=== PATIENT | female | born 1965 | race Caucasian/White ===

== ENCOUNTER 2020-09-22 15:16 | Outpatient (REF) | payer MEDICARE, SELFPAY ==
--- NOTE | 2020-09-22 15:27 | XR_ITS ---
EXAMINATION: XR CHEST CLINICAL INFORMATION: 55-year-old female patient with abnormal weight loss. COMPARISON: CT the chest on 12/16/2018. COPD. Bullous lung disease upper lobes. Chest x-ray on 07/05/2016. TECHNIQUE: PA and lateral erect views of the chest. FINDINGS: Both lungs are hyper aerated consistent with COPD. The cardiovascular, intestinal, and hilar structures are normal. A 0.3 cm calcified granuloma is partially superimposed on the anterior aspect of the left sixth rib. Just superior to this granuloma is another peripheral rectangular density with probable calcification corresponding to a partially calcified pleural plaque on the recent CT exam. Otherwise the lungs are clear. There is no visible pleural effusion. Minor bilateral apical pleural thickening is seen. XR/XR chest 2V IMPRESSION: No acute pulmonary disease. Small calcified granuloma left lung. Partially calcified pleural plaque lateral left chest wall.
[2020-09-22 16:56] LABS: MANUAL DIFF FLAG NO
[2020-09-22 16:59] LABS: Estimated Average Glucose 91 mg/dL; Hemoglobin A1c % 4.8 %
[2020-09-22 17:01] LABS: Basophils Absolute Auto 0.1 X10*3/uL (0.0-0.2); Basophils Percent Auto 0.9 % (0-2); Eosinophils Absolute Auto 0.2 X10*3/uL (0.0-0.4); Eosinophils Percent Auto 2.7 % (0-4); Hematocrit 42.5 % (37-47); Imm Gran Abs Auto 0.02 X10*3/uL (0.00-0.03); Imm Gran Pct Auto 0.3 % (0.0-0.4); Lymphocytes Absolute Auto 2.6 X10*3/uL (1.2-4.9); Lymphocytes Percent Auto 33.8 % (20-40); Mean Corpuscular HGB Conc 32.9 g/dl (31.0-35.0); Mean Corpuscular Hemoglobin 30.6 pg (27.0-33.0); Mean Platelet Volume 10.5 fL (9.4-12.3); Monocytes Absolute Auto 0.4 X10*3/uL (0.1-1.2); Monocytes Percent Auto 5.3 % (2-11); Neutrophils Absolute Auto 4.4 X10*3/uL (2.0-8.3); Platelet Count 369 X10*3/uL (160-400); Red Blood Count 4.57 X10*6/uL (4.20-5.50); Red Cell Distribution Width 12.1 % (11.0-16.0); White Blood Count 7.7 X10*3/uL (4.8-10.8)
[2020-09-22 17:13] LABS: Alanine Aminotransferase 18 U/L (0-31); Albumin Level 5.2 g/dL (3.5-5.0); Alkaline Phosphatase 52 U/L (39-117); Amylase 101 U/L (28-100); Anion Gap 14 (12-20); Aspartate Amino Transferase 20 U/L (5-31); Bilirubin Direct 0.2 mg/dL (0.0-0.5); Bilirubin Total 0.3 mg/dL (0.0-1.0); Blood Urea Nitrogen 9 mg/dL (9-16); C Reactive Protein 0.02 mg/dL (< or = 0.50); Calcium 10.1 mg/dL (8.4-10.2); Carbon Dioxide 30 mmol/L (22-29); Chloride 103 mmol/L (96-108); Estimated Glomerular Filt Rate > 60; Glucose Random 95 mg/dL (60-115); Lipase 63 U/L (8-78); Potassium 4.2 mmol/l (3.3-5.1); Sodium 143 mmol/L (135-145); Total Protein 8.5 g/dL (6.5-8.0)
[2020-09-22 17:35] LABS: TSH reflex Free T4 2.05 mIU/mL (0.32-4.0)
[2020-09-22 17:43] LABS: Erythrocyte Sedimentation Rate 6 MM/HR (0-20)
[2020-09-27 04:27] LABS: HIV AB/AG Nonreactive (Nonreactive); HIV Num 1 0.14 S/CO (0.00-0.99)
== END 2020-09-22 15:17 | disposition home or self-care (01) ==
LOC: HO.HMGCX 15:16
PROVIDERS: Nurse Practitioner Family; PCP Internal Medicine; Visit Provider Internal Medicine
DX: R63.4 Abnormal weight loss (principal)
CPT/HCPCS: 36415; 71046; 80048; 80076; 82150; 83036; 83690; 84443; 85025; 85652; 86140; 87389

== ENCOUNTER 2021-10-10 16:27 | Outpatient (REF) | payer MEDICARE, SELFPAY ==
[2021-10-11 02:50] LABS: CT PCR NOT DETECTED (Not Detect.); NG PCR NOT DETECTED (Not Detect.)
[2021-10-11 11:02] LABS: BV Int Neg Control Negative (Negative); BV Int Pos Control Positive (Positive)
== END 2021-10-10 16:28 | disposition home or self-care (01) ==
LOC: HO.LNP 16:27
PROVIDERS: Visit Provider Physician Assistant
DX: N89.8 Other specified noninflammatory disorders of vagina (principal); R39.89 Other symptoms and signs involving the genitourinary system
CPT/HCPCS: 87480; 87491; 87510; 87591; 87660

== ENCOUNTER 2021-10-20 11:23 | Outpatient (REF) | payer MEDICARE, SELFPAY | END 2021-10-20 11:24 | disposition home or self-care (01) | LOC: HO.HMGCLDS 11:23 | PROVIDERS: Visit Provider Internal Medicine | DX: Z20.822 Contact with and (suspected) exposure to COVID-19 (principal) | CPT/HCPCS: C9803; U0003; U0005 ==

== ENCOUNTER 2022-03-28 13:26 | Outpatient (REF) | payer MEDICARE, SELFPAY ==
--- NOTE | ~2022-03-28 | XR_ITS ---
EXAMINATION: XR CERVICAL SPINE CLINICAL INFORMATION: Cervicalgia. COMPARISON: MR cervical spine dated from 01/12/2014. TECHNIQUE: 3 views of the cervical spine were obtained. FINDINGS: No evidence of acute compression deformities or malalignment. The atlantooccipital and atlantoaxial articulations are maintained. Mild multilevel disc space narrowing and facet arthropathy. No evidence of prevertebral soft tissue thickening. The visualized lung apices demonstrate subpleural thickening/scarring. XR/XR cervical spine 3V IMPRESSION: No acute fractures or malalignment. Mild multilevel cervical spondylosis.
== END 2022-03-28 13:27 | disposition home or self-care (01) ==
LOC: HO.HMGCX 13:26
PROVIDERS: PCP Internal Medicine; Visit Provider Internal Medicine
DX: M54.2 Cervicalgia (principal)
CPT/HCPCS: 72040

== ENCOUNTER 2022-12-29 13:50 | Outpatient (REF) | payer MEDICARE, SELFPAY ==
--- NOTE | 2022-12-29 14:00 | PFT_ITS ---
Forced vital capacity 57%, FEV1 26%, FEV1/FVC ratio at 36. [id number] 10%, MVV 22%. Post bronchodilator therapy, there is a significant improvement in all flow volumes. Total lung capacity 134%. Residual volume is 235%. Diffusion capacity 43%. CONCLUSION: Very severe obstructive airway disorder with evidence of hyperinflation and air trapping. His significant response after bronchodilator therapy indicates that the patient has asthma/COPD overlap syndrome. Clinical correlation is recommended. Chacho Erwin MD [facility] / [id number]
== END 2022-12-29 13:51 | disposition home or self-care (01) ==
LOC: HO.RESP 13:50
PROVIDERS: PCP Internal Medicine; Visit Provider Internal Medicine
DX: R06.02 Shortness of breath (principal)
CPT/HCPCS: 94060; 94727; 94729

== ENCOUNTER 2023-01-26 10:48 | Outpatient (REF) | payer MEDICARE, SELFPAY ==
--- NOTE | ~2023-01-26 | MM_ITS ---
EXAMINATION: MM SCREENING DIGITAL BREAST TOMOSYNTHESIS, BILATERAL CLINICAL INFORMATION: Screening. Asymptomatic. The lifetime risk of breast cancer based on the Tyrer-Cuzick Model is 5%. COMPARISON: Mammography: 01/28/2019, 02/28/2012 (new baseline) TECHNIQUE: Digital breast tomosynthesis is performed in both the craniocaudal and mediolateral oblique views along with computer-aided detection (CAD). Synthesized 2D images are generated from the tomosynthesis. FINDINGS: The breasts are heterogeneously dense, which may obscure small masses (ACR BI-RADS breast composition Category c). There are no significant masses, abnormal calcifications, or other abnormalities. Parenchymal pattern is similar to prior studies. There is no developing density or architectural abnormality. The axilla and skin contours are unremarkable. No significant changes. MM/MM tomosynthesis screening BI IMPRESSION: No mammographic evidence of malignancy. ASSESSMENT: BI-RADS 1: Negative RECOMMENDATION: Routine annual mammography screening. This patient's information was entered into a reminder system with a target due date for their next mammogram.
== END 2023-01-26 10:49 | disposition home or self-care (01) ==
LOC: HO.MAMMO 10:48
PROVIDERS: PCP Internal Medicine; Visit Provider Internal Medicine
DX: Z12.31 Encounter for screening mammogram for malignant neoplasm of breast (principal)
CPT/HCPCS: 77063; 77067

== ENCOUNTER 2023-03-14 13:29 | Outpatient (REF) | payer MEDICARE, SELFPAY | END 2023-03-14 13:30 | disposition home or self-care (01) | LOC: HO.LAB 13:29 | PROVIDERS: PCP Internal Medicine; Visit Provider Advanced Practice Midwife | DX: Z13.89 Encounter for screening for other disorder (principal) ==

== ENCOUNTER 2023-03-14 14:03 | Outpatient (REF) | payer MEDICARE, SELFPAY ==
[2023-03-15 00:51] LABS: CT PCR NOT DETECTED (Not Detect.); NG PCR NOT DETECTED (Not Detect.)
[2023-03-15 10:59] LABS: BV Int Neg Control Negative (Negative); BV Int Pos Control Positive (Positive)
[2023-03-20 10:33] LABS: HPV mRNA E6/E7 rflx Not Detected (Not Detected)
== END 2023-03-14 14:04 | disposition home or self-care (01) ==
LOC: HO.LNP 14:03
PROVIDERS: Visit Provider Advanced Practice Midwife
DX: Z01.419 Encounter for gynecological examination (general) (routine) without abnormal findings (principal); Z11.51 Encounter for screening for human papillomavirus (HPV); N89.8 Other specified noninflammatory disorders of vagina; Z20.2 Contact with and (suspected) exposure to infections with a predominantly sexual mode of transmission
CPT/HCPCS: 0353U; 87480; 87510; 87624; 87660; 88142

== ENCOUNTER 2023-04-06 15:31 | Outpatient (AMB) | payer MEDICARE, SELFPAY ==
--- NOTE | 2023-04-06 16:07 | MHC.OFFWIV ---
Intake Vital Signs 04/06/23 16:10 Height 5 ft 4 in BP 120/72 Blood Pressure Location Rt brachial Position Sitting Pulse 70 Pulse Source Pulse Oximeter Temp 97.6 F Temp Source Temporal Artery Scan Pulse Oximetry (%) 98 Oxygen Delivery Method Room Air Intake Visit Reasons: EST/Burning in right hip/SOB losing weigh(lobby) Intake Note: pt is here for c/o burning sensation in RT hip Patient Tobacco Use Status: Current everyday Tobacco user Allergies No Known Allergies Allergy (Verified 05/24/23 15:19) Medication List - Last Reconciled 04/06/23 by Ilda Gotti CNP albuterol sulfate 90 mcg/actuation (ProAir HFA) 1 inh inhalation QID PRN 30 days doxylamine succinate (Unisom (doxylamine)) 25 mg PO BEDTIME PRN guaifenesin ER (Mucinex) 600 mg PO BID hydrocortisone 2.5% 1 appl topical BID PRN metronidazole 500 mg PO BID 7 days valacyclovir 1,000 mg PO BID 1 day Do you need a note to return to daycare/school/sports/work: No HPI HPI Comments History of Present Illness Details 58 yo female presents today for sick visit, c/o burning and pain of right hip, sob, and significant weight loss over 6 months to a year. Patient lives alone at home, reports known sciatic pain right low back which is now radiating into right hip, she reports good appetite, drinks boost supplements every morning. Past medical history significant for asthma, COPD, overlaping syndrome. Unfortunately she continues to smoke about a pack per day of cigarettes. She is tearful today, admits to being depressed. [facility] Medical History (Updated 06/03/23 @ 15:15 by Ilda Gotti CNP) Colonoscopy refused COPD (chronic obstructive pulmonary disease) Dermatitis, atopic Eczema Elevated amylase Left otitis externa Major depressive disorder, recurrent episode, severe Malnutrition Mammogram declined Smoker Urinary urgency Weight loss Surgical History History of surgery on arm Hx of tonsillectomy Family History Father Family history unknown Mother No problems noted. Sister No problems noted. Social History Housing: House Alcohol intake: current Alcohol intake frequency: 0-2 drinks per day Patient Tobacco Use Status: Current everyday Tobacco user Tobacco use type: Cigarette Cigarettes Per Day: 15 Years Smoked: 40 years e-Cigarette/Vaping Use: Never Used Substance Use Type: Marijuana Current occupational status: disabled Sexual orientation: Straight/Heterosexual Gender identity: Female Cognitive needs: No Hearing needs: No Vision needs: No Review of Systems Const All systems reviewed & are unremarkable except as noted in HPI and below Physical Exam Vital Signs: Last Vital Signs Temp 97.6 F 04/06/23 16:10 Pulse 70 04/06/23 16:10 BP 120/72 04/06/23 16:10 Pulse Ox 98 04/06/23 16:10 Oxygen Delivery Method Room Air 04/06/23 16:10 PATIENT IS DEFINITELY UNDER NOURISHED, OF A THIN BUILD, CHRONICALLY SICK-LOOKING. Const General: healthy appearing, comfortable, no acute distress, alert and awake Orientation/consciousness: patient oriented x3 HEENT Head: Yes normal to inspection General nose exam: No nasal polyps present, No nasal discharge present and Other nasal findings present (ONLY MILD NASAL CONGESTION) Face and sinus: Yes sinuses nontender Mouth: oropharynx normal Throat: Yes posterior oropharynx normal Eyes General: appearance normal, both eyes and all related structures Neck Neck: Yes normal visual inspection, Yes no lymphadenopathy, Yes trachea midline and Yes no JVD Thyroid: Thyroid normal Chest Chest palpation & inspection: normal inspection of the chest, normal palpation of entire chest wall and no tenderness Resp Other: PERCUSSION NOTE IS HYPER-RESONANT, BREATH SOUNDS ARE VERY DISTANT ON BOTH SIDES WITH. PROLONGED EXPIRATORY PHASE NO WHEEZES RHONCHI OR CREPITATIONS. ARE HEARD Cardio Palpation: normal PMI Rate: regular rate Rhythm: regular rhythm Heart sounds: no gallops and no murmurs Peripheral pulses: Peripheral pulses 2+ throughout GI Palpation (GI): Soft to palpation, nontender, No hepatosplenomegaly present and no masses Auscultation: normal bowel sounds Back/Spine/Pelvis Thoracic/Lumbar Spine: thoracic and lumbar spine normal to inspection Skin General skin exam: no rashes or lesions noted Neuro General: patient oriented x3 and no focal motor deficits Cranial nerves: Yes CN's II-XII intact bilaterally Extrem General: Yes normal to inspection, Yes no clubbing, cyanosis or edema and Yes no calf tenderness Psych Speech and movement: Normal speech and movement present Assessment & Plan Assessment & Plan (1) Recurrent major depression: Code(s): F33.9 - Major depressive disorder, recurrent, unspecified Qualifiers: Active/Remission status: currently active Major depression episode severity: moderate Qualified Code(s): F33.1 - Major depressive disorder, recurrent, moderate Plan: 58 yo female presents today for sick visit, c/o burning and pain of right hip, sob, and significant weight loss over 6 months to a year. sciatic pain; right low back which is now radiating into right hip. Past medical history significant for asthma, COPD, overlaping syndrome. Unfortunately she continues to smoke about a pack per day of cigarettes. She is tearful today, admits to being depressed and is very thin, almost emaciated. She denies SI or HI. 1. Tylenol 1000 mg, orally, every 6 hours as needed for hip pain, and low back pain. 2. Lidocaine patch, available [id number] and should be apply to area of maximal tenderness as directed on the outside packaging. 3. Ibuprofen 400 mg, orally with milk or food, every 6 hours as needed for hip and back pain. 4. Ice to muscle pain twice a day, may alternate w/ heat therapy. 5. F/U with PCP for ongoing c/o hip and back pain. Recurrent major depression. Start Sertraline 50 mg po qd; take 1/2 tab po x 3 days, if tolerate increase dose to full tab, 50 mg po qd. Education provided on black box warning, discontinue medication immediately w/ Suicidal ideation. Encouraged to engage in Counseling, and f/u w/ PCP (2) Malnutrition: Code(s): E46 - Unspecified protein-calorie malnutrition Qualifiers: Malnutrition type: protein-calorie malnutrition Protein-calorie malnutrition severity: moderate Qualified Code(s): E44.0 - Moderate protein-calorie malnutrition (3) Anorexia nervosa: Code(s): F50.00 - Anorexia nervosa, unspecified Plan: Encouraged to engage in counseling & f/u w/ PCP Medications: New sertraline take 1/2 tablet by mouth first 3 days if tolerate take full tablet po qd 50 mg PO DAILY 28 tabs 0RF F33.9 - Major depressive disorder, recurrent, unspecified Coding Level of Care Code Est Pt Level 3 (68804) Diagnoses Recurrent major depression F33.1 Active/Remission status: currently active Major depression episode severity: moderate Malnutrition E44.0 Malnutrition type: protein-calorie malnutrition Protein-calorie malnutrition severity: moderate Anorexia nervosa F50.00
[2023-04-06 16:10] VITALS: BP 120/72; PULSE 70; TEMP 36.4; O2SAT 98
== END 2023-04-06 16:46 | disposition home or self-care (01) ==
PROVIDERS: PCP Internal Medicine; Visit Provider Nurse Practitioner Acute Care
DX: F33.1 Major depressive disorder, recurrent, moderate (principal); E44.0 Moderate protein-calorie malnutrition; F50.00 Anorexia nervosa, unspecified
CPT/HCPCS: 99213

== ENCOUNTER 2023-04-18 11:07 | Outpatient (REF) | payer MEDICARE, SELFPAY ==
--- NOTE | ~2023-04-18 | XR_ITS ---
EXAMINATION: XR CHEST CLINICAL INFORMATION: Other fatigue COMPARISON: Previous dated 09/22/2020 TECHNIQUE: 2 views of the chest were obtained. FINDINGS: Once again density seen on the left midlung region laterally. Difficult to assess for change on this study. Depressed hemidiaphragms may indicate COPD. Apical opacities may well represent apical scarring. The cardiac silhouette is comparable. The hilar regions are felt to be comparable. No convincing evidence for an acute infiltrate. Degenerative change in the thoracic spine. No acute compression injury. XR/XR chest 2V IMPRESSION: No convincing evidence for an acute process. Once again densities are seen left lateral lung zone.
[2023-04-18 14:14] LABS: Hematocrit 40.7 % (37.0-47.0); Hemoglobin 13.3 g/dl (12.0-16.0); Mean Corpuscular HGB Conc 32.7 g/dl (31.0-35.0); Mean Corpuscular Hemoglobin 29.8 pg (27.0-33.0); Mean Corpuscular Volume 91.1 fL (80.0-98.0); Mean Platelet Volume 10.4 fL (9.4-12.3); Platelet Count 334 X10*3/uL (160-400); Red Blood Count 4.47 X10*6/uL (4.20-5.50); White Blood Count 7.7 X10*3/uL (4.8-10.8)
[2023-04-18 14:18] LABS: Anion Gap 12 (12-20); Blood Urea Nitrogen 7 mg/dL (9-16); Calcium 9.8 mg/dL (8.4-10.2); Carbon Dioxide 32 mmol/L (22-29); Chloride 103 mmol/L (96-108); Estimated Glomerular Filt Rate > 60; Glucose Random 93 mg/dL (60-115); Potassium 3.9 mmol/L (3.3-5.1); Sodium 143 mmol/L (135-145)
[2023-04-18 14:54] LABS: Erythrocyte Sedimentation Rate 10 MM/HR (0-20)
== END 2023-04-18 11:08 | disposition home or self-care (01) ==
LOC: HO.HMGCX 11:07
PROVIDERS: PCP Internal Medicine; Visit Provider Internal Medicine
DX: R53.83 Other fatigue (principal)
CPT/HCPCS: 36415; 71046; 80048; 85027; 85652

== ENCOUNTER 2023-05-09 15:14 | Outpatient (AMB) | payer MEDICARE, SELFPAY ==
[2023-05-09 15:16] VITALS: BP 106/64; PULSE 83; O2SAT 97; BMI 15.9
--- NOTE | 2023-05-09 15:16 | A.OFFPC_ITS ---
Vital Signs 05/09/23 15:16 Height 5 ft 4 in Weight 92 lb 8 oz BMI 15.9 BP 106/64 Blood Pressure Location Rt brachial Position Sitting Pulse 83 Pulse Source Pulse Oximeter Pulse Oximetry (%) 97 Oxygen Delivery Method Room Air Intake Visit Reasons: follow up walk in, weight loss, sob Allergies No Known Allergies Allergy (Verified 05/09/23 15:19) Medication List - Last Reconciled 05/09/23 by Vito Beal MD Advair Diskus 500-50 mcg/dose (fluticasone propion-salmeterol) 1 inh inhalation Q12H 30 days NS albuterol sulfate 90 mcg/actuation (ProAir HFA) 1 inh inhalation QID PRN 30 days doxylamine succinate (Unisom (doxylamine)) 25 mg PO BEDTIME PRN guaifenesin ER (Mucinex) 600 mg PO BID hydrocortisone 2.5% 1 appl topical BID PRN metronidazole 500 mg PO BID 7 days sertraline 50 mg PO DAILY valacyclovir 1,000 mg PO BID 1 day Tobacco use date assessed: 05/09/23 Dental Screening Dental Screen Date: 05/09/23 Did you have a dental visit in the last 12 months?: No Did you have a dental problem in the last 6 months where you did not have access to dental care?: No Was dental information given to patient?: No HPI follow up walk in, weight loss, sob HPI Details Patient is 58-year-old female with major depression but do not want to see psychiatrist or take medication Patient have a severe COPD continue to smoke, currently taking Advair which is helping She has appointment with water resource specialist of this month, patient says that she did not know about it I have printed the appointment letter and handed to patient so she can show up on time. Meanwhile continue Advair [facility] Medical History Colonoscopy refused Dermatitis, atopic Eczema Elevated amylase Left otitis externa Major depressive disorder, recurrent episode, severe Mammogram declined Urinary urgency Weight loss Surgical History History of surgery on arm Hx of tonsillectomy Family History Father Family history unknown Mother No problems noted. Sister No problems noted. Social History Housing: House Alcohol intake: current Alcohol intake frequency: 0-2 drinks per day Patient Tobacco Use Status: Current everyday Tobacco user Tobacco use type: Cigarette Cigarettes Per Day: 15 Years Smoked: 40 years e-Cigarette/Vaping Use: Never Used Substance Use Type: Marijuana Current occupational status: disabled Sexual orientation: Straight/Heterosexual Gender identity: Female Cognitive needs: No Hearing needs: No Vision needs: No Questionnaire Thrive Questionnaire Date Thrive assessed: 08/03/21 AUDIT C Alcohol Use Questionnaire (AUDIT-C) 1. How often do you have a drink containing alcohol?: 4 or more times a week 2. How many drinks containing alcohol do you have on a typical day when you are drinking?: 1 or 2 3. How often do you have six or more drinks on one occasion?: Never Total Score: 4 Score Reviewed/Action Taken: Yes Review of Systems Const Denies chills and Denies fever(s) ENT Denies epistaxis and Denies nasal discharge Card Denies chest pain Resp Denies hemoptysis GI Denies diarrhea and Denies nausea Skin/Breast Denies rash Neuro Reports no additional complaints Psych Reports no additional complaints Endo Reports no additional complaints Physical exam (Primary Care) Vital Signs: Last Vital Signs Pulse 83 05/09/23 15:16 BP 106/64 05/09/23 15:16 Pulse Ox 97 05/09/23 15:16 Oxygen Delivery Method Room Air 05/09/23 15:16 BMI result Body Mass Index 15.9 Tobacco/Smoking Status: Tobacco use Status Tobacco use date assessed 05/09/23 05/09/23 15:24 Patient Tobacco Use Status Current everyday Tobacco 05/09/23 15:18 Tobacco use type Cigarette 05/09/23 15:18 e-Cigarette/Vaping Use Never Used 05/09/23 15:18 Thrive Assessment: Date of Thrive Assessment Date Thrive assessed 08/03/21 05/09/23 15:18 Const General: cooperative, comfortable and no acute distress Orientation/consciousness: patient oriented x3 HENMT Head: Yes normocephalic Eyes General: appearance normal, both eyes and all related structures Neck Neck: Yes supple Chest Other: Limited airflow Resp Effort & Inspection: normal respiratory effort, no cough and no stridor Cardio Rhythm: regular rhythm Heart sounds: S1 normal heart sound present and S2 normal heart sound present Skin General skin exam: turgor normal Neuro General: patient oriented x3, tone normal and moves all extremities Extrem Right lower extremity: no edema Left lower extremity: no edema Assessment and Plan Assessment & Plan (1) Asthma-COPD overlap syndrome: Code(s): J44.9 - Chronic obstructive pulmonary disease, unspecified Plan Patient is 58-year-old female with major depression but do not want to see psychiatrist or take medication Patient have a severe COPD continue to smoke, currently taking Advair which is helping She has appointment with water resource specialist 27th of this month, patient says that she did not know about it I have printed the appointment letter and handed to patient so she can show up on time. Meanwhile continue Advair Medications: New fluticasone propionate 50 mcg/actuation (Allergy Relief (fluticasone)) administer into each nostril 1 spray intranasal DAILY 1 mL 0RF 30 days R09.81 - Nasal congestion Coding Level of Care Code Est Pt Level 3 (61944) Diagnoses Asthma-COPD overlap syndrome J44.9
== END 2023-05-09 16:20 | disposition home or self-care (01) ==
PROVIDERS: PCP Internal Medicine; Visit Provider Internal Medicine
DX: J44.9 Chronic obstructive pulmonary disease, unspecified (principal)
CPT/HCPCS: 99213

== ENCOUNTER 2023-05-24 14:18 | Outpatient (AMB) | payer MEDICARE, SELFPAY ==
[2023-05-24 14:46] VITALS: BP 118/70; PULSE 70; O2SAT 95; BMI 15.7
--- NOTE | 2023-05-24 14:46 | A.OFFVIS_ITS ---
Intake Vital Signs 05/24/23 14:46 Height 5 ft 4 in Weight 91 lb 7.869 oz BMI 15.7 BP 118/70 Blood Pressure Location Lt brachial Position Sitting Pulse 70 Pulse Source Pulse Oximeter Pulse Oximetry (%) 95 Oxygen Delivery Method Room Air Intake Visit Reasons: COPD Intake Note: Patient states when walking short distance having difficulty breathing. 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: No Allergies No Known Allergies Allergy (Verified 05/24/23 15:19) Medication List - Last Reconciled 05/24/23 by Chacho Erwin MD Advair Diskus 500-50 mcg/dose (fluticasone propion-salmeterol) 1 inh inhalation Q12H 30 days NS albuterol sulfate 90 mcg/actuation (ProAir HFA) 1 inh inhalation QID PRN 30 days doxylamine succinate (Unisom (doxylamine)) 25 mg PO BEDTIME PRN fluticasone propionate 50 mcg/actuation (Allergy Relief (fluticasone)) 1 spray intranasal DAILY 30 days guaifenesin ER (Mucinex) 600 mg PO BID hydrocortisone 2.5% 1 appl topical BID PRN sertraline 50 mg PO DAILY valacyclovir 1,000 mg PO BID 1 day Do you need a note to return to daycare/school/sports/work: No HPI COPD HPI Details 58 YEARS OLD FEMALE IS BEING SEEN FOR THE 1ST TIME FOR PULMONARY EVALUATION AND MANAGEMENT. SHE IS OF A VERY THIN BUILD AND IS OBVIOUSLY UNDER NOURISHED. HAS HISTORY OF SMOKING THROUGHOUT HER ADULT LIFE, 1 PACK A DAY, SINCE RECENTLY CUT DOWN TO 10 CIGARETTES A DAY. SHE HAS FREQUENT COUGH, SHORTNESS OF BREATH ON EXERTION, AND OCCASIONAL WHEEZING, GOING ON FOR PAST MANY YEARS. SHE IS BEING TREATED FOR CHRONIC OBSTRUCTIVE PULMONARY DISEASE, CURRENTLY ON ADVAIR 500-51 INHALATION B.I.D., AND ALBUTEROL HFA 2 PUFFS Q 4-6 HOURS P.R.N. HER MAIN COMPLAINT IS COUGH, SHE IS USING MUCINEX OVER THE COUNTER WHICH IS HELPING. SHE ALSO HAS SHORTNESS OF BREATH ON WALKING A FEW BLOCKS AND ALSO CLIMBING 1 FLIGHT. OF STAIRS AT HOME SHE IS CONCERNED ABOUT BEING UNDERWEIGHT, SHE DOES TRY TO EAT MORE, BUT CAN EAT ONLY IN SMALL PORTIONS. ALSO DRINKS 1 BOTTLE OF ENSURE DAILY. SHE SUFFERS FROM CHRONIC ANXIETY AND DEPRESSION, AND SEEMS TO HAVE POOR UNDERSTANDING OF HER SELF-CARE. [facility] Medical History (Updated 05/24/23 @ 15:52 by Chacho Erwin MD) Colonoscopy refused COPD (chronic obstructive pulmonary disease) Dermatitis, atopic Eczema Elevated amylase Left otitis externa Major depressive disorder, recurrent episode, severe Malnutrition Mammogram declined Smoker Urinary urgency Weight loss Surgical History History of surgery on arm Hx of tonsillectomy Family History Father Family history unknown Mother No problems noted. Sister No problems noted. Social History Housing: House Alcohol intake: current Alcohol intake frequency: 0-2 drinks per day Patient Tobacco Use Status: Current everyday Tobacco user Tobacco use type: Cigarette Cigarettes Per Day: 15 Years Smoked: 40 years e-Cigarette/Vaping Use: Never Used Substance Use Type: Marijuana Current occupational status: disabled Sexual orientation: Straight/Heterosexual Gender identity: Female Cognitive needs: No Hearing needs: No Vision needs: No Review of Systems Const All systems reviewed & are unremarkable except as noted in HPI and below Eyes Reports no additional complaints ENT Reports nasal congestion (OFF AND ON) Card Denies irregular heart rhythm and Denies leg edema Resp Reports as per HPI GI Reports other (LACK OF APPETITE, AND POOR DIETARY INTAKE.) Reports nocturia Musc Reports other (GENERAL MUSCLE WEAKNESS) Skin/Breast Reports system reviewed and no additional complaints, except as documented Neuro Reports no additional complaints Psych Reports anxiety and Reports depression Physical Exam Vital Signs: Last Vital Signs Pulse 70 05/24/23 14:46 BP 118/70 05/24/23 14:46 Pulse Ox 95 05/24/23 14:46 Oxygen Delivery Method Room Air 05/24/23 14:46 BMI result Body Mass Index 15.7 PATIENT IS DEFINITELY UNDER NOURISHED, OF A THIN BUILD, CHRONICALLY SICK- LOOKING. Const General: healthy appearing, comfortable, no acute distress, alert and awake Orientation/consciousness: patient oriented x3 HEENT Head: Yes normal to inspection General nose exam: No nasal polyps present, No nasal discharge present and Other nasal findings present (ONLY MILD NASAL CONGESTION) Face and sinus: Yes sinuses nontender Mouth: oropharynx normal Throat: Yes posterior oropharynx normal Eyes General: appearance normal, both eyes and all related structures Neck Neck: Yes normal visual inspection, Yes no lymphadenopathy, Yes trachea midline and Yes no JVD Thyroid: Thyroid normal Chest Chest palpation & inspection: normal inspection of the chest, normal palpation of entire chest wall and no tenderness Resp Other: PERCUSSION NOTE IS HYPER-RESONANT, BREATH SOUNDS ARE VERY DISTANT ON BOTH SIDES WITH. PROLONGED EXPIRATORY PHASE NO WHEEZES RHONCHI OR CREPITATIONS. ARE HEARD Cardio Palpation: normal PMI Rate: regular rate Rhythm: regular rhythm Heart sounds: no gallops and no murmurs Peripheral pulses: Peripheral pulses 2+ throughout GI Palpation (GI): Soft to palpation, nontender, No hepatosplenomegaly present and no masses Auscultation: normal bowel sounds Back/Spine/Pelvis Thoracic/Lumbar Spine: thoracic and lumbar spine normal to inspection Skin General skin exam: no rashes or lesions noted Neuro General: patient oriented x3 and no focal motor deficits Cranial nerves: Yes CN's II-XII intact bilaterally Extrem General: Yes normal to inspection, Yes no clubbing, cyanosis or edema and Yes no calf tenderness Psych Speech and movement: Normal speech and movement present Results Reviewed Results Reviewed: CHEST X-RAY OF 04/18/2023, . THE IMAGE IS REVIEWED SHE HAS VERY HYPERINFLATED LUNGS, WITH A FEW. NONSPECIFIC DENSITIES IN THE LEFT LUNG NO ACTIVE LUNG DISEASE NOTED. Assessment & Plan Assessment & Plan (1) Smoker: Code(s): F17.200 - Nicotine dependence, unspecified, uncomplicated (2) COPD (chronic obstructive pulmonary disease): Code(s): J44.9 - Chronic obstructive pulmonary disease, unspecified (3) Malnutrition: Code(s): E46 - Unspecified protein-calorie malnutrition Plan: THIS 58 YEARS OLD FEMALE IS A HEAVY SMOKER, ANXIOUS AND DEPRESSED. HAS VERY LITTLE MOTIVATION TO QUIT SMOKING. HAS VERY POOR UNDERSTANDING ABOUT HER HEALTH MAINTENANCE AND SELF-CARE OBVIOUSLY SHE HAS ADVANCED CHRONIC OBSTRUCTIVE PULMONARY DISEASE. SHE IS AT RISK OF LUNG CANCER. I EXPLAINED TO HER IN DETAIL GAVE WRITTEN NOTES. ADVISED THAT, WE WOULD DO PULMONARY FUNCTION TEST. AND ALSO SET HER UP FOR LOW DOES CT SCAN OF THE CHEST. COUNSELED TO QUIT SMOKING, WITH HAD HELP OF NICOTINE PATCH 14 MG WHICH IS PRESCRIBED. MEDS : ADVAIR 500-51 INHALATION. B.I.D. TO CONTINUE WILL ADD A LAMA (SPIRIVA HANDIHALER )1 INHALATION DAILY CONTINUE TO TAKE MUCINEX 200 MG B.I.D.. ADVISED TO EAT HIGH-PROTEIN DIET.. ALSO TOLD THAT SHE WOULD CUT DOWN AND QUIT SMOKING SHE APPETITE WILL IMPROVE AND SHE WILL PUT ON SOME WEIGHT. PATIENT NEEDS CLOSE SUPERVISION AND COUNSELING WILL SEE HER IN 6-8 WEEKS. Orders: Orders PFT pulmonary function test Today F17.200 - Nicotine dependence, unspecified, uncomplicated, J44.9 - Chronic obstructive pulmonary disease, unspecified Referrals Thoracic Surgery Referral F17.200 - Nicotine dependence, unspecified, uncomplicated, J44.9 - Chronic obstructive pulmonary disease, unspecified Medications: New fluticasone propion-salmeterol 500-50 mcg/dose (Advair Diskus) 1 inh inhalation BID 60 ea 3RF SEVERE COPD 30 days tiotropium bromide (Spiriva with HandiHaler) puncture 1 cap using device; one dose = 2 inhalations 1 cap inhalation DAILY 30 inhalations 3RF SEVERE COPD 30 days nicotine 1 patch transdermal Q24H 28 ea 3RF 28 days Coding Level of Care Code New Pt Level 4 (79789) Diagnoses Smoker F17.200 COPD (chronic obstructive pulmonary disease) J44.9 Malnutrition E46
== END 2023-05-24 15:33 | disposition home or self-care (01) ==
PROVIDERS: PCP Internal Medicine; Visit Provider Internal Medicine
DX: J44.9 Chronic obstructive pulmonary disease, unspecified (principal); F17.210 Nicotine dependence, cigarettes, uncomplicated; E46 Unspecified protein-calorie malnutrition
CPT/HCPCS: 99214

== ENCOUNTER → 2023-05-24 14:18 | Outpatient (BNVA) | payer MEDICARE, SELFPAY | PROVIDERS: Visit Provider Internal Medicine | DX: J44.9 Chronic obstructive pulmonary disease, unspecified (principal); E46 Unspecified protein-calorie malnutrition; F17.210 Nicotine dependence, cigarettes, uncomplicated | CPT/HCPCS: 99212 ==

== ENCOUNTER 2023-07-20 13:31 | Outpatient (AMB) | payer MEDICARE, SELFPAY ==
--- NOTE | 2023-07-20 10:21 | A.OFFVIS_ITS ---
Intake Intake Visit Reasons: LDCT SD Allergies No Known Allergies Allergy (Verified 05/24/23 15:19) HPI LDCT SD HPI Details Initial visit for this 58yo smoker with a 40PYH. Patient has been smoking since age 13 for 45 years at 1ppd. Now down to 1/2ppd. Reports life/family stresses making it difficult to quit. . Denies current marijuana use. Denies second hand smoke exposure. Denies exposure to chemicals or substances like asbestos. . Denies known family history of lung cancer. Denies personal history of cancers. . Denies chest CT in last year. 12/16/[address] noted hyperinflation an d bullous formation - no suspicious nodules noted. . Denies recent travel outside the [place]. Denies recent respiratory illness or recent hospitalization for respiratory issues. Denies testing positive for COVID. Admits receiving COVID Vaccine. x 2. . Has chronic smokers cough. Denies fever, chills, new/worsening cough, hemoptysis, hoarseness or dysphagia. Denies significant chest pain, significant dyspnea or unintentional weight loss. Patient Lung Cancer Screening Questionnaire reviewed with patient by provider. . Shared Decision Making Completed. Patient meets criteria. Discussed in detail with patient, the risk vs benefit of LDCT screening. Patient consents to proceed with scan. Discussed smoking cessation. [facility] Medical History (Updated 07/20/23 @ 13:38 by Deanne Hastings PA-C) EtOH dependence Recurrent major depression Anorexia nervosa Malnutrition Underweight COPD (chronic obstructive pulmonary disease) Nicotine dependence, cigarettes, uncomplicated Urinary urgency Eczema Colonoscopy refused Mammogram declined Surgical History (Updated 07/16/23 @ 10:50 by Deanne Hastings PA-C) History of cervical biopsy History of tonsillectomy History of surgery on arm Family History Father Family history unknown Mother No problems noted. Sister No problems noted. Social History (Updated 07/20/23 @ 13:39 by Deanne Hastings PA-C) Housing: House Alcohol intake: current Alcohol intake frequency: 0-2 drinks per day Patient Tobacco Use Status: Current everyday Tobacco user Tobacco use type: Cigarette Cigarettes Per Day: 15 Years Smoked: onset 13yo, 1ppd x 45yrs, now1/2ppd - 40pyh e-Cigarette/Vaping Use: Never Used Substance Use Type: Marijuana Current occupational status: disabled Sexual orientation: Straight/Heterosexual Gender identity: Female Cognitive needs: No Hearing needs: No Vision needs: No Assessment & Plan Assessment & Plan (1) Nicotine dependence, cigarettes, uncomplicated: Comment: (Current smoker - onset 13yo, 1ppd x 45yrs, now1/2ppd - 40pyh) Code(s): F17.210 - Nicotine dependence, cigarettes, uncomplicated Plan: - SDM visit completed today in office. - Patient meets criteria for LDCT for lung cancer screening purposes and is asymptomatic. - Smoking cessation counseling offered. Patients can always call [phone]. - Will arrange for a LDCT scan of the chest for screening purposes at [facility]. - Risks, benefits, and alternatives were discussed in detail and the patient agrees to proceed. - Risks discussed include but are not limited to: radiation exposure, anxiety during testing and while awaiting results, false negatives, false positives and possibility of additional intervention such as further imaging or surgical procedures for benign disease. - Benefits are obviously detection of lung cancer at an early stage which can lead to improved outcomes. - Discussed the importance of screening program compliance with adherence to yearly LDCT scan as scheduled - or sooner interval scans for personalized screening regimen. - Discussed follow up plan. Our office will send a letter discussing results and if needed set up phone call and office visit based on CT findings. - Patient educated on results categorization and the management decisions for suspicious findings potentially found on the screening LDCT scan. Any patient with a Lung RADS score of 3 or 4 will be reviewed by a multidisciplinary team at [facility] to form a plan of action in regards to scan findings. - If further work up is warranted for a suspicious lung finding this will be followed by the Lung Cancer Screening program in conjunction with the Thoracic Surgery Department at [facility]. - A copy of the office note and LDCT will be sent to the patient's PCP - as well as documentation on any associated further plans of care. - Incidental findings on LDCT are the PCP's responsibility. These findings are indicated with an S finding on the LDCT Assessment. A note discussing the findings will be sent to the PCP who is then responsible for further management. - All questions answered.? Coding Level of Care Code Lung Cancer Screening G0296 Diagnoses Nicotine dependence, cigarettes, uncomplicated F17.210
== END 2023-07-20 14:39 | disposition home or self-care (01) ==
PROVIDERS: PCP Internal Medicine; Visit Provider Physician Assistant Medical
DX: F17.210 Nicotine dependence, cigarettes, uncomplicated (principal)
CPT/HCPCS: G0296

== ENCOUNTER 2023-07-20 13:56 | Outpatient (REF) | payer MEDICARE, SELFPAY ==
--- NOTE | ~2023-07-20 | CT_ITS ---
EXAMINATION: CT CHEST LOW-DOSE SCREENING WITHOUT CONTRAST HISTORY: Asymptomatic patient meeting criteria for lung screening. PATIENT PACK-YEAR HISTORY: 33 Current Smoker: Yes If former smoker, years since quitting: COMPARISON: 12/16/2018 TECHNIQUE: Multidetector volumetric non-contrast CT imaging of the chest was performed using low dose screening CT technique. Axial thin section 0.625 mm reformations in soft tissue and lung windows were obtained. Sagittal and coronal reformations were obtained. Axial MIP images were also created and reviewed. RECONSTRUCTED WIDTH: 1.25 mm x 1.25 mm TOTAL EXAM DLP: 34 mGy-cm CTDIvol: 0.63 L mGy FINDINGS: LUNGS: Marked centrilobular emphysema. Biapical scarring. Adjacent 3 mm nodules in the right upper lobe on image 92. No focal consolidation. Central airways are patent. PLEURA: No pleural effusion. Calcified and noncalcified pleural plaques. LYMPH NODES: No bulky mediastinal, hilar or axillary lymphadenopathy. MEDIASTINUM: Great vessels are of normal caliber. Heart size is normal. No pericardial effusion. CORONARY ARTERY CALCIFICATIONS: Mild. CHEST WALL/BREASTS: No acute abnormality. UPPER ABDOMEN: This study was performed without contrast and with lower than standard dose, reducing the sensitivity for detection of small lesions in the upper abdomen. OSSEOUS STRUCTURES: No destructive bone lesions. CT/CT lung screening IMPRESSION: 3 mm right upper lobe pulmonary nodules. LUNG-RADS CATEGORY ASSESSMENT: 2. Benign appearance or behavior. Nodules with a very low likelihood of becoming a clinically active cancer due to size or lack of growth. Continue annual screening with low-dose CT in 12 months. Probability of malignancy less than 1%. INCIDENTAL FINDINGS (S CATEGORY): Finding: Calcified and noncalcified pleural plaques. Significance category: Variable clinical significance. RECOMMENDATION: Low dose lung CT. overall in 1 year. Visual estimate of coronary calcified plaque burden: Mild. However, this exam cannot replace a dedicated cardiac CT calcium score for accurate assessment. LUNG-RADS CATEGORY: 2 -- BENIGN
== END 2023-07-20 13:57 | disposition home or self-care (01) ==
LOC: HO.CT 13:56
PROVIDERS: PCP Internal Medicine; Visit Provider Physician Assistant Medical
DX: Z12.2 Encounter for screening for malignant neoplasm of respiratory organs (principal); F17.210 Nicotine dependence, cigarettes, uncomplicated
CPT/HCPCS: 71271; G0296

== ENCOUNTER 2023-07-27 12:13 | Outpatient (AMB) | payer MEDICARE, SELFPAY ==
[2023-07-27 12:15] VITALS: BP 112/66; PULSE 72; O2SAT 94; BMI 15.5
--- NOTE | 2023-07-27 12:15 | MHC.PC.OV ---
Vital Signs 07/27/23 12:15 Height 5 ft 4 in Weight 90 lb 8 oz BMI 15.5 BP 112/66 Blood Pressure Location Rt brachial Pulse 72 Pulse Source Pulse Oximeter Pulse Oximetry (%) 94 Oxygen Delivery Method Room Air Intake Visit Reasons: follow up CT scan/losing weight Allergies No Known Allergies Allergy (Verified 07/27/23 12:16) Medication List - Last Reconciled 07/27/23 by Vito Beal MD Advair Diskus 500-50 mcg/dose (fluticasone propion-salmeterol) 1 inh inhalation Q12H 30 days NS albuterol sulfate 90 mcg/actuation (ProAir HFA) 1 inh inhalation QID PRN 30 days doxylamine succinate (Unisom (doxylamine)) 25 mg PO BEDTIME PRN fluticasone propion-salmeterol 500-50 mcg/dose (Advair Diskus) 1 inh inhalation BID 30 days fluticasone propionate 50 mcg/actuation (Allergy Relief (fluticasone)) 1 spray intranasal DAILY 30 days hydrocortisone 2.5% 1 appl topical BID PRN nicotine 1 patch transdermal Q24H 28 days sertraline 50 mg PO DAILY tiotropium bromide (Spiriva with HandiHaler) 1 cap inhalation DAILY 30 days valacyclovir 1,000 mg PO BID 1 day Tobacco use date assessed: 07/27/23 Dental Screening Dental Screen Date: 07/27/23 Did you have a dental visit in the last 12 months?: No Did you have a dental problem in the last 6 months where you did not have access to dental care?: No Was dental information given to patient?: Patient has dentist HPI follow up CT scan/losing weight HPI Details 58 year old female came in today feeling depressed , as family members dont talk to her her grandson is in fdc we have tried to get her in with Psych but she didnt go for more than one apt I am starting her on Seroquel 25 mg at night, it might stimulate her appetite as well She is supposed to be on sertraline 50 mg but I do not think she is taking it. She brought in her Advair and Spiriva inhaler in ask me if she needs to take those. They will prescribed by Dr. Erwin but she does not even remember his name. I wrote on a piece of paper the next appointment with Dr. Erwin and the telephone number so patient shows up for her appointment. Meanwhile she is to continue both Advair and Spiriva and albuterol as needed. She continued to smoke and is smoking half a pack per day once again patient was instructed to stop as soon as possible she is aware of it, she was given script for Nicoderm patch which she never used. She also have chronic nasal congestion and I have sent Flonase nasal spray, I have told her many time to stop using Afrin nasal spray that she is using [id number]. We will book another appointment telemedicine in 2 weeks to see how she is doing. I feel that basically she needs to talk to somebody as she is so depressed and she does not want a see the therapist as well. She feels comfortable with me so she comes in so she can spend some time telling her problems. Patient was tearful today she always start crying whenever she comes here and then she smiles when she leaves. Once again I tried to convince her to start seeing a therapist at least But she did not say yes. [facility] Medical History EtOH dependence Recurrent major depression Anorexia nervosa Malnutrition Underweight COPD (chronic obstructive pulmonary disease) Nicotine dependence, cigarettes, uncomplicated Urinary urgency Eczema Colonoscopy refused Mammogram declined Surgical History History of cervical biopsy History of tonsillectomy History of surgery on arm Family History Father Family history unknown Mother No problems noted. Sister No problems noted. Social History Housing: House Alcohol intake: current Alcohol intake frequency: 0-2 drinks per day Patient Tobacco Use Status: Current everyday Tobacco user Tobacco use type: Cigarette Cigarettes Per Day: 15 Years Smoked: onset 13yo, 1ppd x 45yrs, now1/2ppd - 40pyh e-Cigarette/Vaping Use: Never Used Substance Use Type: Marijuana Current occupational status: disabled Sexual orientation: Straight/Heterosexual Gender identity: Female Cognitive needs: No Hearing needs: No Vision needs: No Questionnaire PHQ-9 Over the last 2 weeks, how often have you been bothered by any of the following problems? 1. Little interest or pleasure in doing things: not at all 2. Feeling down, depressed, or hopeless: nearly every day 3. Trouble falling or staying asleep, or sleeping too much: more than half the days 4. Feeling tired or having little energy: several days 5. Poor appetite or overeating: more than half the days 6. Feeling bad about yourself - or that you are a failure or have let yourself or your family down: not at all 7. Trouble concentrating on things, such as reading the newspaper or watching television: not at all 8. Moving or speaking so slowly that other people could have noticed. Or the opposite - being so fidgety or restless that you have been moving around a lot more than usual: several days 9. Thoughts that you would be better off or of hurting yourself in some way: nearly every day Total score: 12 Depression Screening Interpretation: Positive 35645 - PHQ-9 Billing: Yes Source: Developed by Drs. Ganga Bauer, Brooklyn Benedict, Dionte Puente and colleagues, with an educational albert from [employer]. Thrive Questionnaire Date Thrive assessed: 08/03/21 AUDIT C Alcohol Use Questionnaire (AUDIT-C) 1. How often do you have a drink containing alcohol?: Never 3. How often do you have six or more drinks on one occasion?: Never Total Score: 0 Score Reviewed/Action Taken: Yes Review of Systems Const Denies chills and Denies fever(s) ENT Denies epistaxis and Denies nasal discharge Card Denies chest pain Resp Denies chest congestion, Denies cough and Denies hemoptysis GI Denies diarrhea and Denies nausea Skin/Breast Denies rash Neuro Reports no additional complaints Psych Reports no additional complaints Endo Reports no additional complaints Physical exam (Primary Care) Vital Signs: Last Vital Signs Pulse 72 07/27/23 12:15 BP 112/66 07/27/23 12:15 Pulse Ox 94 07/27/23 12:15 Oxygen Delivery Method Room Air 07/27/23 12:15 BMI result Body Mass Index 15.5 Tobacco/Smoking Status: Tobacco use Status Tobacco use date assessed 07/27/23 07/27/23 12:17 Patient Tobacco Use Status Current everyday Tobacco 07/27/23 12:17 Tobacco use type Cigarette 07/27/23 12:17 e-Cigarette/Vaping Use Never Used 07/27/23 12:17 Are you ready to quit: No Tobacco cessation counseling provided: Yes Relapse Prevention: discussed negative mood or depression after quitting CPT code: 62076 - 4-10 Minutes Depression Screening Interpretation: Positive Thrive Assessment: Date of Thrive Assessment Date Thrive assessed 08/03/21 07/27/23 12:17 Const General: cooperative, comfortable and no acute distress Orientation/consciousness: patient oriented x3 HENMT Head: Yes normocephalic Eyes General: appearance normal, both eyes and all related structures Neck Neck: Yes supple Resp Effort & Inspection: normal respiratory effort, no cough and no stridor Cardio Rhythm: regular rhythm Heart sounds: S1 normal heart sound present and S2 normal heart sound present Skin General skin exam: turgor normal Neuro General: patient oriented x3, tone normal and moves all extremities Extrem Right lower extremity: no edema Left lower extremity: no edema Assessment and Plan Assessment & Plan (1) Recurrent major depression: Code(s): F33.9 - Major depressive disorder, recurrent, unspecified Qualifiers: Active/Remission status: currently active Major depression episode severity: moderate Qualified Code(s): F33.1 - Major depressive disorder, recurrent, moderate (2) EtOH dependence: Code(s): F10.20 - Alcohol dependence, uncomplicated Qualifiers: Substance use status: uncomplicated Qualified Code(s): F10.20 - Alcohol dependence, uncomplicated (3) Malnutrition: Code(s): E46 - Unspecified protein-calorie malnutrition Qualifiers: Malnutrition type: protein-calorie malnutrition Protein-calorie malnutrition severity: moderate Qualified Code(s): E44.0 - Moderate protein-calorie malnutrition (4) COPD (chronic obstructive pulmonary disease): Comment: (PFT: FVC 68, FEV1 32, FEV1/FVC 32, DLCO 43 - 12/29/22) Code(s): J44.9 - Chronic obstructive pulmonary disease, unspecified Qualifiers: COPD type: emphysema Emphysema type: panlobular Qualified Code(s): J43.1 - Panlobular emphysema (5) Chronic rhinitis: Code(s): J31.0 - Chronic rhinitis (6) Non-compliance: Code(s): Z91.199 - Patient's noncompliance with other medical treatment and regimen due to unspecified reason Plan 58 year old female came in today feeling depressed , as family members dont talk to her her grandson is in fdc we have tried to get her in with Psych but she didnt go for more than one apt I am starting her on Seroquel 25 mg at night, it might stimulate her appetite as well She is supposed to be on sertraline 50 mg but I do not think she is taking it. She brought in her Advair and Spiriva inhaler in ask me if she needs to take those. They will prescribed by Dr. Erwin but she does not even remember his name. I wrote on a piece of paper the next appointment with Dr. Erwin and the telephone number so patient shows up for her appointment. Meanwhile she is to continue both Advair and Spiriva and albuterol as needed. She continued to smoke and is smoking half a pack per day once again patient was instructed to stop as soon as possible she is aware of it, she was given script for Nicoderm patch which she never used. She also have chronic nasal congestion and I have sent Flonase nasal spray, I have told her many time to stop using Afrin nasal spray that she is using [id number]. We will book another appointment telemedicine in 2 weeks to see how she is doing. She also continued to drink alcohol every night in spite of me discussing toxic effect of alcohol and advising her to stop I feel that basically she needs to talk to somebody as she is so depressed and she does not want a see the therapist as well. She feels comfortable with me so she comes in so she can spend some time telling her problems. Patient was tearful today she always start crying whenever she comes here and then she smiles when she leaves. Once again I tried to convince her to start seeing a therapist at least But she did not say yes. Medications: New quetiapine (Seroquel) 25 mg PO BEDTIME 30 days 30 tabs 0RF Refilled fluticasone propionate 50 mcg/actuation (Allergy Relief (fluticasone)) administer into each nostril 1 spray intranasal DAILY 30 days 1 mL 2RF R09.81 - Nasal congestion fluticasone propionate 50 mcg/actuation (Allergy Relief (fluticasone)) administer into each nostril 1 spray intranasal DAILY 30 days 1 mL 2RF R09.81 - Nasal congestion Coding Level of Care Code Est Pt Level 4 (53810) Diagnoses Moderate episode of recurrent major depressive disorder F33.1 Active/Remission status: currently active Major depression episode severity: moderate Uncomplicated alcohol dependence F10.20 Substance use status: uncomplicated Moderate protein-calorie malnutrition E44.0 Malnutrition type: protein-calorie malnutrition Protein-calorie malnutrition severity: moderate Panlobular emphysema J43.1 COPD type: emphysema Emphysema type: panlobular Chronic rhinitis J31.0 Non-compliance Z91.199 Additional Codes Vital Signs *Quality* - CPT code: 96493 - 4-10 Minutes ([id number])
== END 2023-07-27 13:31 | disposition home or self-care (01) ==
LOC: HO.HMGC 12:13
PROVIDERS: PCP Internal Medicine; Visit Provider Internal Medicine
DX: F33.1 Major depressive disorder, recurrent, moderate (principal); F10.20 Alcohol dependence, uncomplicated; E44.0 Moderate protein-calorie malnutrition; J43.1 Panlobular emphysema; J31.0 Chronic rhinitis; Z91.199 Patient's noncompliance with other medical treatment and regimen due to unspecified reason
CPT/HCPCS: 99214

== ENCOUNTER 2023-08-03 15:06 | Outpatient (AMB) | payer MEDICARE, SELFPAY ==
[2023-08-03 15:13] VITALS: BP 120/60; PULSE 72; O2SAT 94; BMI 15.3
--- NOTE | 2023-08-03 15:13 | MHC.PC.OV ---
Vital Signs 08/03/23 15:13 Height 5 ft 4 in Weight 89 lb BMI 15.3 BP 120/60 Blood Pressure Location Lt brachial Position Sitting Pulse 72 Pulse Source Pulse Oximeter Pulse Oximetry (%) 94 Oxygen Delivery Method Room Air Intake Visit Reasons: bumps on hand Allergies No Known Allergies Allergy (Verified 08/03/23 15:14) Medication List - Last Reconciled 08/03/23 by Vito Beal MD Advair Diskus 500-50 mcg/dose (fluticasone propion-salmeterol) 1 inh inhalation Q12H 30 days NS albuterol sulfate 90 mcg/actuation (ProAir HFA) 1 inh inhalation QID PRN 30 days doxylamine succinate (Unisom (doxylamine)) 25 mg PO BEDTIME PRN fluticasone propion-salmeterol 500-50 mcg/dose (Advair Diskus) 1 inh inhalation BID 30 days fluticasone propionate 50 mcg/actuation (Allergy Relief (fluticasone)) 1 spray intranasal DAILY 30 days hydrocortisone 2.5% 1 appl topical BID PRN nicotine 1 patch transdermal Q24H 28 days quetiapine (Seroquel) 25 mg PO BEDTIME 30 days sertraline 50 mg PO DAILY tiotropium bromide (Spiriva with HandiHaler) 1 cap inhalation DAILY 30 days valacyclovir 1,000 mg PO BID 1 day Tobacco use date assessed: 07/27/23 Dental Screening Dental Screen Date: 08/03/23 Did you have a dental visit in the last 12 months?: No Did you have a dental problem in the last 6 months where you did not have access to dental care?: No Was dental information given to patient?: Patient declined HPI bumps on hand HPI Details Patient is a 58-year-old female who has developed a trigger finger right hand she wanted to be evaluated for that Patient have a full range of motion in the hand there is no pain, reassurance provided at this time I think it will be okay if she continue to use her hands without any intervention. However if the problem started and she cannot use a hand she will need to see a hand specialist. She is feeling little bit better today as she has started taking Seroquel 25 mg at night And is taking her inhalers Patient has appointment coming up with the cardiopulmonary physical therapist this month and pulmonary function test next month [facility] Medical History EtOH dependence Recurrent major depression Anorexia nervosa Malnutrition Underweight COPD (chronic obstructive pulmonary disease) Nicotine dependence, cigarettes, uncomplicated Urinary urgency Eczema Colonoscopy refused Mammogram declined Surgical History History of cervical biopsy History of tonsillectomy History of surgery on arm Family History Father Family history unknown Mother No problems noted. Sister No problems noted. Social History Housing: House Alcohol intake: current Alcohol intake frequency: 0-2 drinks per day Patient Tobacco Use Status: Current everyday Tobacco user Tobacco use type: Cigarette Cigarettes Per Day: 15 Years Smoked: onset 13yo, 1ppd x 43yrs, now1/2ppd - 40pyh Packs per year/per ci.00 e-Cigarette/Vaping Use: Never Used Substance Use Type: Marijuana Current occupational status: disabled Sexual orientation: Straight/Heterosexual Gender identity: Female Cognitive needs: No Hearing needs: No Vision needs: No Questionnaire Thrive Questionnaire Date Thrive assessed: 08/03/21 Review of Systems Const All systems reviewed & are unremarkable except as noted in HPI and below Physical exam (Primary Care) Vital Signs: Last Vital Signs Pulse 72 08/03/23 15:13 BP 120/60 08/03/23 15:13 Pulse Ox 94 08/03/23 15:13 Oxygen Delivery Method Room Air 08/03/23 15:13 BMI result Body Mass Index 15.3 Tobacco/Smoking Status: Tobacco use Status Tobacco use date assessed 07/27/23 08/03/23 15:17 Patient Tobacco Use Status Current everyday Tobacco 08/03/23 15:17 Tobacco use type Cigarette 08/03/23 15:17 e-Cigarette/Vaping Use Never Used 08/03/23 15:17 Thrive Assessment: Date of Thrive Assessment Date Thrive assessed 08/03/21 08/03/23 15:17 Const General: no acute distress Orientation/consciousness: patient oriented x3 Eyes General: appearance normal, both eyes and all related structures Resp Effort & Inspection: normal respiratory effort and able to speak in complete sentences Auscultation: clear to auscultation bilaterally Neuro General: patient oriented x3 Extrem Hand/finger images: 1. Shrinkage off the tendons in the Palm of right hand, patient is able to fully stretch fingers and close them completely without any pain Psych Mental Status: mental status grossly normal Assessment and Plan Assessment & Plan (1) Trigger finger, right middle finger: Code(s): M65.331 - Trigger finger, right middle finger Plan Patient is a 58-year-old female who has developed a trigger finger right hand she wanted to be evaluated for that Patient have a full range of motion in the hand there is no pain, reassurance provided at this time I think it will be okay if she continue to use her hands without any intervention. However if the problem started and she cannot use a hand she will need to see a hand specialist. She is feeling little bit better today as she has started taking Seroquel 25 mg at night And is taking her inhalers Patient has appointment coming up with the cardiopulmonary physical therapist this month and pulmonary function test next month Coding Level of Care Code Est Pt Level 3 (80431) Diagnoses Trigger finger, right middle finger M65.331
== END 2023-08-03 15:52 | disposition home or self-care (01) ==
PROVIDERS: PCP Internal Medicine; Visit Provider Internal Medicine
DX: M65.331 Trigger finger, right middle finger (principal)
CPT/HCPCS: 99213

== ENCOUNTER 2023-08-09 14:26 | Outpatient (AMB) | payer MEDICARE, SELFPAY ==
[2023-08-09 14:27] VITALS: BP 102/64; PULSE 101; O2SAT 94; BMI 15.3
--- NOTE | 2023-08-09 14:27 | MHC.OFFVIS ---
Intake Vital Signs 08/09/23 14:27 Height 5 ft 4 in Weight 89 lb 4.595 oz BMI 15.3 BP 102/64 Blood Pressure Location Lt brachial Position Sitting Pulse 101 H Pulse Source Doppler Pulse Oximetry (%) 94 Oxygen Delivery Method Room Air Intake Visit Reasons: COPD Intake Note: Patient is here for a COPD follow up, patient is still smoking and having a hard time trying to quit, patient c/o difficulty breathing Allergies No Known Allergies Allergy (Verified 08/09/23 14:54) Medication List - Last Reconciled 08/09/23 by Chacho Erwin MD Advair Diskus 500-50 mcg/dose (fluticasone propion-salmeterol) 1 inh inhalation Q12H 30 days NS albuterol sulfate 90 mcg/actuation (ProAir HFA) 1 inh inhalation QID PRN 30 days doxylamine succinate (Unisom (doxylamine)) 25 mg PO BEDTIME PRN fluticasone propion-salmeterol 500-50 mcg/dose (Advair Diskus) 1 inh inhalation BID 30 days fluticasone propionate 50 mcg/actuation (Allergy Relief (fluticasone)) 1 spray intranasal DAILY 30 days hydrocortisone 2.5% 1 appl topical BID PRN nicotine 1 patch transdermal Q24H 28 days quetiapine (Seroquel) 25 mg PO BEDTIME 30 days sertraline 50 mg PO DAILY tiotropium bromide (Spiriva with HandiHaler) 1 cap inhalation DAILY 30 days valacyclovir 1,000 mg PO BID 1 day Do you need a note to return to daycare/school/sports/work: No HPI COPD HPI Details This 58 years old female is a known case of severe obstructive airway disorder. She is still smoking about 1 pack of cigarettes a day. Says he complains of intermittent cough and also shortness of breath on exertion like climbing 1 flight of stairs and walking around in the house. Sees using Advair as well as Spiriva on a daily bases and also uses ProAir very frequently. She say is that these inhalers are not making her lungs any better, as she thought that by using the inhaler she would have no dyspnea on exertion. She is under lot of stress, has hard time to understand why she still gets short of breath. [facility] Medical History (Updated 08/09/23 @ 15:33 by Chacho Erwin MD) Smoker EtOH dependence Recurrent major depression Anorexia nervosa Malnutrition Underweight COPD (chronic obstructive pulmonary disease) Nicotine dependence, cigarettes, uncomplicated Urinary urgency Eczema Colonoscopy refused Mammogram declined Surgical History History of cervical biopsy History of tonsillectomy History of surgery on arm Family History Father Family history unknown Mother No problems noted. Sister No problems noted. Social History Housing: House Alcohol intake: current Alcohol intake frequency: 0-2 drinks per day Patient Tobacco Use Status: Current everyday Tobacco user Tobacco use type: Cigarette Cigarettes Per Day: 15 Years Smoked: onset 13yo, 1ppd x 45yrs, now1/2ppd - 40pyh e-Cigarette/Vaping Use: Never Used Substance Use Type: Marijuana Current occupational status: disabled Sexual orientation: Straight/Heterosexual Gender identity: Female Cognitive needs: No Hearing needs: No Vision needs: No Review of Systems Const All systems reviewed & are unremarkable except as noted in HPI and below Eyes Reports no additional complaints ENT Reports nasal congestion (OFF AND ON) Card Denies irregular heart rhythm and Denies leg edema Resp Reports as per HPI GI Reports other (LACK OF APPETITE, AND POOR DIETARY INTAKE.) Reports nocturia Musc Reports other (GENERAL MUSCLE WEAKNESS) Skin/Breast Reports system reviewed and no additional complaints, except as documented Neuro Reports no additional complaints Psych Reports anxiety and Reports depression Physical Exam Vital Signs: Last Vital Signs Pulse 101 H 08/09/23 14:27 BP 102/64 08/09/23 14:27 Pulse Ox 94 08/09/23 14:27 Oxygen Delivery Method Room Air 08/09/23 14:27 BMI result Body Mass Index 15.3 PATIENT IS DEFINITELY UNDER NOURISHED, OF A THIN BUILD, CHRONICALLY SICK-LOOKING. Const General: healthy appearing, comfortable, no acute distress, alert and awake Orientation/consciousness: patient oriented x3 HEENT Head: Yes normal to inspection General nose exam: No nasal polyps present, No nasal discharge present and Other nasal findings present (ONLY MILD NASAL CONGESTION) Face and sinus: Yes sinuses nontender Mouth: oropharynx normal Throat: Yes posterior oropharynx normal Eyes General: appearance normal, both eyes and all related structures Neck Neck: Yes normal visual inspection, Yes no lymphadenopathy, Yes trachea midline and Yes no JVD Thyroid: Thyroid normal Chest Chest palpation & inspection: normal inspection of the chest, normal palpation of entire chest wall and no tenderness Resp Other: PERCUSSION NOTE IS HYPER-RESONANT, BREATH SOUNDS ARE VERY DISTANT ON BOTH SIDES WITH. PROLONGED EXPIRATORY PHASE NO WHEEZES RHONCHI OR CREPITATIONS. ARE HEARD Cardio Palpation: normal PMI Rate: regular rate Rhythm: regular rhythm Heart sounds: no gallops and no murmurs Peripheral pulses: Peripheral pulses 2+ throughout GI Palpation (GI): Soft to palpation, nontender, No hepatosplenomegaly present and no masses Auscultation: normal bowel sounds Back/Spine/Pelvis Thoracic/Lumbar Spine: thoracic and lumbar spine normal to inspection Skin General skin exam: no rashes or lesions noted Neuro General: patient oriented x3 and no focal motor deficits Cranial nerves: Yes CN's II-XII intact bilaterally Extrem General: Yes normal to inspection, Yes no clubbing, cyanosis or edema and Yes no calf tenderness Psych Speech and movement: Normal speech and movement present Results Reviewed Results Reviewed: Report of her spirometry is reviewed with her and she is educated about the severity of her lung disease C/W severe obstructive airway disorder. Assessment & Plan Assessment & Plan (1) COPD (chronic obstructive pulmonary disease): Comment: (PFT: FVC 68, FEV1 32, FEV1/FVC 32, DLCO 43 - 12/29/22) c/w severe obstructive airway disorder, I went over these numbers with her and explained to her about advanced COPD. She does need to use her inhalers regularly, [place] Advair 250-50 1 inhalation b.i.d. Spiriva HandiHaler 1 inhalation daily. ProAir HFA 2 puffs Q 6 hours p.r.n.,, explained to her that this is not be used just for exertional dyspnea, use it only if there is any persistent cough or wheezing. Code(s): J44.9 - Chronic obstructive pulmonary disease, unspecified Qualifiers: COPD type: emphysema Emphysema type: panlobular Qualified Code(s): J43.1 - Panlobular emphysema (2) Smoker: Comment: Patient still smoking about 1 pack of cigarettes a day. She say she is under lot of stress. It is hard for her to quit. She does have nicotine patches at home and would restart applying it daily. Patient is participating in annual lung screening program. Code(s): F17.200 - Nicotine dependence, unspecified, uncomplicated Medications: New fluticasone propion-salmeterol 250-50 mcg/dose (Advair Diskus) 1 inh inhalation BID 60 ea 5RF copd 30 days tiotropium bromide (Spiriva with HandiHaler) puncture 1 cap using device; one dose = 2 inhalations 1 cap inhalation DAILY 30 inhalations 5RF COPD 30 days albuterol sulfate 90 mcg/actuation 2 puffs inhalation Q4-6H PRN 8.5 grams 3RF shortness of breath or wheezing 30 days Coding Level of Care Code Est Pt Level 3 (87855) Diagnoses Panlobular emphysema J43.1 COPD type: emphysema Emphysema type: panlobular Smoker F17.200
== END 2023-08-09 14:56 | disposition home or self-care (01) ==
PROVIDERS: PCP Internal Medicine; Visit Provider Internal Medicine
DX: J43.1 Panlobular emphysema (principal); F17.200 Nicotine dependence, unspecified, uncomplicated
CPT/HCPCS: 99213

== ENCOUNTER → 2023-08-09 14:26 | Outpatient (BNVA) | payer MEDICARE, SELFPAY | PROVIDERS: PCP Internal Medicine; Visit Provider Internal Medicine | DX: J43.1 Panlobular emphysema (principal); F17.210 Nicotine dependence, cigarettes, uncomplicated | CPT/HCPCS: 99212 ==

== ENCOUNTER 2023-08-15 15:03 | Outpatient (AMB) | payer MEDICARE, SELFPAY ==
[2023-08-15 15:08] VITALS: BP 110/72; PULSE 101; O2SAT 95; BMI 15.1
--- NOTE | 2023-08-15 15:08 | A.OFFPC_ITS ---
Vital Signs 3 08/15/23 15:08 Height 5 ft 4 in Weight 88 lb BMI 15.1 BP 110/72 Blood Pressure Location Rt brachial Position Sitting Pulse 101 H Pulse Source Pulse Oximeter Pulse Oximetry (%) 95 Oxygen Delivery Method Room Air Intake Visit Reasons: ?Hemorrhoids Allergies No Known Allergies Allergy (Verified 08/15/23 15:10) Medication List - Last Reconciled 08/15/23 by Vito Beal MD Advair Diskus 500-50 mcg/dose (fluticasone propion-salmeterol) 1 inh inhalation Q12H 30 days NS albuterol sulfate 90 mcg/actuation (ProAir HFA) 1 inh inhalation QID PRN 30 days albuterol sulfate 90 mcg/actuation 2 puffs inhalation Q4-6H PRN 30 days doxylamine succinate (Unisom (doxylamine)) 25 mg PO BEDTIME PRN fluticasone propion-salmeterol 250-50 mcg/dose (Advair Diskus) 1 inh inhalation BID 30 days fluticasone propion-salmeterol 500-50 mcg/dose (Advair Diskus) 1 inh inhalation BID 30 days fluticasone propionate 50 mcg/actuation (Allergy Relief (fluticasone)) 1 spray intranasal DAILY 30 days hydrocortisone 2.5% 1 appl topical BID PRN nicotine 1 patch transdermal Q24H 28 days quetiapine (Seroquel) 25 mg PO BEDTIME 30 days sertraline 50 mg PO DAILY tiotropium bromide (Spiriva with HandiHaler) 1 cap inhalation DAILY 30 days tiotropium bromide (Spiriva with HandiHaler) 1 cap inhalation DAILY 30 days valacyclovir 1,000 mg PO BID 1 day Tobacco use date assessed: 08/15/23 Dental Screening Dental Screen Date: 08/15/23 Did you have a dental visit in the last 12 months?: No Did you have a dental problem in the last 6 months where you did not have access to dental care?: No Was dental information given to patient?: Patient declined HPI ?Hemorrhoids 2 HPI0 Details Left ear is weeping, and is itchy, but no pain on exam she has eczema , she has triamcinolone cream at home she will use it but most importantly she need to stop touching and scratching the ear she is concern about some Bumps around her anus on exam she has slight Hemmorids which are not painful or bleeding I would rec not to get constipated and keep stools soft continue to drink ETOH and continue to be depressed but dont want to take medication or see therapist She has Seroquel at home I encouraged patient to start taking that every night and stop drinking alcohol continue to smoke, she has sever COPD, and is seeing cleaning specialist She had a visit to help of July note reviewed patient was told to continue inhalers [facility] Medical History Smoker EtOH dependence Recurrent major depression Anorexia nervosa Malnutrition Underweight COPD (chronic obstructive pulmonary disease) Nicotine dependence, cigarettes, uncomplicated Urinary urgency Eczema Colonoscopy refused Mammogram declined Surgical History History of cervical biopsy History of tonsillectomy History of surgery on arm Family History Father Family history unknown Mother No problems noted. Sister No problems noted. Social History Housing: House Alcohol intake: current Alcohol intake frequency: 0-2 drinks per day Patient Tobacco Use Status: Current everyday Tobacco user Tobacco use type: Cigarette Cigarettes Per Day: 15 Years Smoked: onset 13yo, 1ppd x 45yrs, now1/2ppd - 40pyh e-Cigarette/Vaping Use: Never Used Substance Use Type: Marijuana Current occupational status: disabled Sexual orientation: Straight/Heterosexual Gender identity: Female Cognitive needs: No Hearing needs: No Vision needs: No Questionnaire Thrive Questionnaire Date Thrive assessed: 08/03/21 AUDIT C Alcohol Use Questionnaire (AUDIT-C) 1. How often do you have a drink containing alcohol?: Never 3. How often do you have six or more drinks on one occasion?: Never Total Score: 0 Score Reviewed/Action Taken: Yes Review of Systems Const Denies chills and Denies fever(s) ENT Denies epistaxis and Denies nasal discharge Card Denies chest pain Resp Denies chest congestion, Denies cough and Denies hemoptysis GI Denies diarrhea and Denies nausea Skin/Breast Denies rash Neuro Reports no additional complaints Psych Reports no additional complaints Endo Reports no additional complaints Physical exam (Primary Care) Vital Signs: Last Vital Signs Pulse 101 H 08/15/23 15:08 BP 110/72 08/15/23 15:08 Pulse Ox 95 08/15/23 15:08 Oxygen Delivery Method Room Air 08/15/23 15:08 BMI result Body Mass Index 15.1 Tobacco/Smoking Status: Tobacco use Status Tobacco use date assessed 08/15/23 08/15/23 15:13 Patient Tobacco Use Status Current everyday Tobacco 08/15/23 15:13 Tobacco use type Cigarette 08/15/23 15:13 e-Cigarette/Vaping Use Never Used 08/15/23 15:13 Are you ready to quit: No Tobacco cessation counseling provided: Yes Relapse Prevention: discussed the importance of a supportive environment CPT code: 26329 - 4-10 Minutes Thrive Assessment: Date of Thrive Assessment Date Thrive assessed 08/03/21 08/15/23 15:13 Const General: cooperative, comfortable and no acute distress Orientation/consciousness: patient oriented x3 HENMT Head: Yes normocephalic Outer ear/TM images: 2 1. Crusting but no inflammation no pain with tragus pressure Eyes General: appearance normal, both eyes and all related structures Neck Neck: Yes supple Resp Effort & Inspection: no cough and no stridor Cardio Rhythm: regular rhythm Heart sounds: S1 normal heart sound present and S2 normal heart sound present GI Other: Small external hemorrhoids nonbleeding nontender no thrombosis Skin General skin exam: turgor normal Neuro General: patient oriented x3, tone normal and moves all extremities Extrem Right lower extremity: no edema Left lower extremity: no edema Assessment and Plan Assessment & Plan (1) Hemorrhoid: Code(s): K64.9 - Unspecified hemorrhoids Qualifiers: Hemorrhoid type: unspecified Qualified Code(s): K64.9 - Unspecified hemorrhoids (2) Eczema of left external ear: Code(s): H60.542 - Acute eczematoid otitis externa, left ear (3) COPD (chronic obstructive pulmonary disease): Comment: (PFT: FVC 68, FEV1 32, FEV1/FVC 32, DLCO 43 - 12/29/22) c/w severe obstructive airway disorder, I went over these numbers with her and explained to her about advanced COPD. She does need to use her inhalers regularly, [place] Advair 250-50 1 inhalation b.i.d. Spiriva HandiHaler 1 inhalation daily. ProAir HFA 2 puffs Q 6 hours p.r.n.,, explained to her that this is not be used just for exertional dyspnea, use it only if there is any persistent cough or wheezing. Code(s): J44.9 - Chronic obstructive pulmonary disease, unspecified Qualifiers: COPD type: emphysema Emphysema type: panlobular Qualified Code(s): J 43.1 - Panlobular emphysema (4) Malnutrition: Code(s): E46 - Unspecified protein-calorie malnutrition Qualifiers: Malnutrition type: protein-calorie malnutrition Protein-calorie malnutrition severity: moderate Qualified Code(s): E44.0 - Moderate protein- calorie malnutrition (5) EtOH dependence: Code(s): F10.20 - Alcohol dependence, uncomplicated Qualifiers: Substance use status: uncomplicated Qualified Code(s): F10.20 - Alcohol dependence, uncomplicated (6) Recurrent major depression: Code(s): F33.9 - Major depressive disorder, recurrent, unspecified Qualifiers: Active/Remission status: currently active Major depression episode severity: moderate Qualified Code(s): F33.1 - Major depressive disorder, recurrent, moderate Plan Left ear is weeping, and is itchy, but no pain on exam she has eczema , she has triamcinolone cream at home she will use it but most importantly she need to stop touching and scratching the ear she is concern about some Bumps around her anus on exam she has slight Hemmorids which are not painful or bleeding I would rec not to get constipated and keep stools soft continue to drink ETOH and continue to be depressed but dont want to take medication or see therapist She has Seroquel at home I encouraged patient to start taking that every night and stop drinking alcohol continue to smoke, she has sever COPD, and is seeing cleaning specialist She had a visit to help of July note reviewed patient was told to continue inhalers Coding Level of Care Code Est Pt Level 4 (48735) Diagnoses Hemorrhoids, unspecified hemorrhoid type K64.9 Hemorrhoid type: unspecified Eczema of left external ear H60.542 Panlobular emphysema J43.1 COPD type: emphysema Emphysema type: panlobular Moderate protein-calorie malnutrition E44.0 Malnutrition type: protein-calorie malnutrition Protein-calorie malnutrition severity: moderate Uncomplicated alcohol dependence F10.20 Substance use status: uncomplicated Moderate episode of recurrent major depressive disorder F33.1 Active/Remission status: currently active Major depression episode severity: moderate Additional Codes Vital Signs *Quality* - CPT code: 78689 - 4-10 Minutes ([id number])
== END 2023-08-15 15:50 | disposition home or self-care (01) ==
PROVIDERS: PCP Internal Medicine; Visit Provider Internal Medicine
DX: K64.9 Unspecified hemorrhoids (principal); J43.1 Panlobular emphysema; E44.0 Moderate protein-calorie malnutrition; F10.20 Alcohol dependence, uncomplicated; F33.1 Major depressive disorder, recurrent, moderate; H60.542 Acute eczematoid otitis externa, left ear
CPT/HCPCS: 99214

== ENCOUNTER 2023-08-21 12:01 | Outpatient (AMB) | payer MEDICARE, SELFPAY ==
--- NOTE | 2023-08-21 12:41 | MHC.OFFWIV ---
Intake Vital Signs 08/21/23 12:48 Height 5 ft 4 in Weight 88 lb BMI 15.1 BP 108/70 Blood Pressure Location Lt brachial Position Sitting Pulse 70 Pulse Source Pulse Oximeter Temp 97.8 F Temp Source Temporal Artery Scan Pulse Oximetry (%) 95 Intake Visit Reasons: EP, rash in right lower leg [phone] Intake Note: pt is here for c/o rash on right lower vasquez since this morning Patient Tobacco Use Status: Current everyday Tobacco user Allergies No Known Allergies Allergy (Verified 08/21/23 12:41) Do you need a note to return to daycare/school/sports/work: Yes HPI EP, rash in right lower leg [phone] HPI Details 58-year-old female presents to the office for a sick visit. Patient has a rash on her right leg that she would like evaluated. Noticed it a week ago. Minimal symptoms of itching. No pain. [facility] Medical History Smoker EtOH dependence Recurrent major depression Anorexia nervosa Malnutrition Underweight COPD (chronic obstructive pulmonary disease) Nicotine dependence, cigarettes, uncomplicated Urinary urgency Eczema Colonoscopy refused Mammogram declined Surgical History History of cervical biopsy History of tonsillectomy History of surgery on arm Family History Father Family history unknown Mother No problems noted. Sister No problems noted. Social History Housing: House Alcohol intake: current Alcohol intake frequency: 0-2 drinks per day Patient Tobacco Use Status: Current everyday Tobacco user Tobacco use type: Cigarette Cigarettes Per Day: 15 Years Smoked: onset 13yo, 1ppd x 45yrs, now1/2ppd - 40pyh e-Cigarette/Vaping Use: Never Used Substance Use Type: Marijuana Current occupational status: disabled Sexual orientation: Straight/Heterosexual Gender identity: Female Cognitive needs: No Hearing needs: No Vision needs: No Physical Exam Vital Signs: Last Vital Signs Temp 97.8 F 08/21/23 12:48 Pulse 70 08/21/23 12:48 BP 108/70 08/21/23 12:48 Pulse Ox 95 08/21/23 12:48 BMI result Body Mass Index 15.1 Extrem Other: Right leg: Discrete erythematous lesions, papular without any vesicles or pustules. Rash limited to the front surface of the right lower leg. Assessment & Plan Assessment & Plan (1) Rash: Code(s): R21 - Rash and other nonspecific skin eruption Plan: Could be tiny insect bites. Hydrocortisone cream prescribed. If symptoms do not improve to follow-up here. Medications: Changed From hydrocortisone 2.5% 1 appl topical BID PRN To hydrocortisone 2.5% 1 appl topical BID 20 grams 0RF Coding Level of Care Code Est Pt Level 3 (57101) Diagnoses Rash R21
[2023-08-21 12:48] VITALS: BP 108/70; PULSE 70; TEMP 36.6; O2SAT 95; BMI 15.1
== END 2023-08-21 13:19 | disposition home or self-care (01) ==
PROVIDERS: PCP Internal Medicine; Visit Provider Internal Medicine
DX: R21 Rash and other nonspecific skin eruption (principal)
CPT/HCPCS: 99213

== ENCOUNTER 2023-08-27 12:50 | Outpatient (AMB) | payer MEDICARE, SELFPAY ==
[2023-08-27 12:50] VITALS: BP 100/64; PULSE 80; TEMP 36.4; O2SAT 97; BMI 16.3
--- NOTE | 2023-08-27 12:50 | AM.OFFWIN_ITS ---
Intake Vital Signs 08/27/23 12:50 Height 5 ft 4 in Weight 95 lb 2 oz BMI 16.3 BP 100/64 Blood Pressure Location Lt brachial Position Sitting Pulse 80 Pulse Source Pulse Oximeter Temp 97.6 F Temp Source Oral Pulse Oximetry (%) 97 Oxygen Delivery Method Room Air Intake Visit Reasons: EP chest pain Intake Note: Patient is here for chest pain, Patient states the pain started yesterday. Patient Tobacco Use Status: Current everyday Tobacco user Allergies No Known Allergies Allergy (Verified 08/27/23 14:03) HPI EP chest pain HPI Details 58-year-old female presents to the office for a sick visit. Patient is reporting retrosternal discomfort when she takes a deep breath. Symptoms started a day ago. Symptoms are constantly present with no variation to exertion. No vomiting or diaphoresis. [facility] Medical History Smoker EtOH dependence Recurrent major depression Anorexia nervosa Malnutrition Underweight COPD (chronic obstructive pulmonary disease) Nicotine dependence, cigarettes, uncomplicated Urinary urgency Eczema Colonoscopy refused Mammogram declined Surgical History History of cervical biopsy History of tonsillectomy History of surgery on arm Family History Father Family history unknown Mother No problems noted. Sister No problems noted. Social History Housing: House Alcohol intake: current Alcohol intake frequency: 0-2 drinks per day Patient Tobacco Use Status: Current everyday Tobacco user Tobacco use type: Cigarette Cigarettes Per Day: 15 Years Smoked: onset 13yo, 1ppd x 45yrs, now1/2ppd - 40pyh e-Cigarette/Vaping Use: Never Used Substance Use Type: Marijuana Current occupational status: disabled Sexual orientation: Straight/Heterosexual Gender identity: Female Cognitive needs: No Hearing needs: No Vision needs: No Physical Exam Vital Signs: Last Vital Signs Temp 97.6 F 08/27/23 12:50 Pulse 80 08/27/23 12:50 BP 100/64 08/27/23 12:50 Pulse Ox 97 08/27/23 12:50 Oxygen Delivery Method Room Air 08/27/23 12:50 BMI result Body Mass Index 16.3 Const General: cooperative and healthy appearing Nutritional Appearance: well nourished Orientation/consciousness: patient oriented x3 Limitations: no limitations HEENT Head: Yes normal to inspection Eyes General: appearance normal, both eyes and all related structures Neck Neck: Yes normal visual inspection Chest Chest palpation & inspection: normal palpation of entire chest wall Resp Effort & Inspection: normal respiratory effort Neuro General: patient oriented x3 Office Procedures EKG Details: Normal sinus rhythm. No EKG changes. [id number], Complete Assessment & Plan Assessment & Plan (1) Chest pain: Code(s): R07.9 - Chest pain, unspecified Plan: unremarkable EKG. Patient was reassured. No evidence of active cardiac disease per Orders: Orders AMB EKG-In Office Today R07.9 - Chest pain, unspecified Coding Level of Care Code Est Pt Level 4 (02841) Diagnoses Chest pain R07.9 CPT Codes EKG - CPT: 13073-[id number], Complete ([id number])
== END 2023-08-27 14:47 | disposition home or self-care (01) ==
PROVIDERS: PCP Internal Medicine; Visit Provider Internal Medicine
DX: R07.9 Chest pain, unspecified (principal)
CPT/HCPCS: 93000; 99214

== ENCOUNTER 2023-09-06 13:31 | Outpatient (AMB) | payer MEDICARE, SELFPAY ==
[2023-09-06 13:37] VITALS: BP 100/64; PULSE 80; TEMP 36.6; O2SAT 96; BMI 16.3
--- NOTE | 2023-09-06 13:37 | MHC.OFFWIV ---
Intake Vital Signs 09/06/23 13:37 Height 5 ft 4 in Weight 95 lb BMI 16.3 BP 100/64 Blood Pressure Location Rt brachial Position Sitting Pulse 80 Pulse Source Pulse Oximeter Temp 97.8 F Temp Source Temporal Artery Scan Pulse Oximetry (%) 96 Oxygen Delivery Method Room Air Intake Visit Reasons: EP Chest Pain Intake Note: pt is here for c/o chest pain, came in for chest pain on 08/27 ekg done in office was unremarkable per last note on 08/27 Patient Tobacco Use Status: Current everyday Tobacco user Allergies No Known Allergies Allergy (Verified 09/06/23 13:39) Do you need a note to return to daycare/school/sports/work: Yes HPI EP Chest Pain HPI Details This 58-year-old female patient presents today with a report of midsternal chest pain which occurred yesterday, and lasted about 30 minutes. She describes this as ?throbbing . Denies any radiation to jaw or to arms. History of ETOH abuse, COPD, major depression. She was seen 10 days ago on 08/27 for a similar complaint. She had an EKG done at that time which was normal. She denies any chest pain at this time. She denies shortness of breath, dizziness, palpitations. She is having a lot of stressors with family as of late, with grandson being incarcerated. [facility] Medical History Smoker EtOH dependence Recurrent major depression Anorexia nervosa Malnutrition Underweight COPD (chronic obstructive pulmonary disease) Nicotine dependence, cigarettes, uncomplicated Urinary urgency Eczema Colonoscopy refused Mammogram declined Surgical History History of cervical biopsy History of tonsillectomy History of surgery on arm Family History Father Family history unknown Mother No problems noted. Sister No problems noted. Social History Housing: House Alcohol intake: current Alcohol intake frequency: 0-2 drinks per day Patient Tobacco Use Status: Current everyday Tobacco user Tobacco use type: Cigarette Cigarettes Per Day: 15 Years Smoked: onset 13yo, 1ppd x 45yrs, now1/2ppd - 40pyh e-Cigarette/Vaping Use: Never Used Substance Use Type: Marijuana Current occupational status: disabled Sexual orientation: Straight/Heterosexual Gender identity: Female Cognitive needs: No Hearing needs: No Vision needs: No Review of Systems Const All systems reviewed & are unremarkable except as noted in HPI and below Physical Exam Vital Signs: Last Vital Signs Temp 97.8 F 09/06/23 13:37 Pulse 80 09/06/23 13:37 BP 100/64 09/06/23 13:37 Pulse Ox 96 09/06/23 13:37 Oxygen Delivery Method Room Air 09/06/23 13:37 BMI result Body Mass Index 16.3 Const General: cooperative, no acute distress, alert and awake Nutritional Appearance: thin Orientation/consciousness: patient oriented x3 HEENT Head: Yes normal to inspection Neck Neck: Yes no lymphadenopathy and Yes no JVD Chest Chest palpation & inspection: normal palpation of entire chest wall Resp Effort & Inspection: normal respiratory effort and Actively coughing (smoker) Quality: productive Auscultation: clear to auscultation bilaterally Cardio Jugular venous distension: no JVD Palpation: normal PMI Rate: regular rate Rhythm: regular rhythm Heart sounds: S1 normal heart sound present and S2 normal heart sound present Skin General skin exam: no rashes or lesions noted Neuro General: patient oriented x3 and moves all extremities Extrem General: Yes capillary refill normal and Yes no clubbing, cyanosis or edema Psych Appearance: grossly normal Mental Status: mental status grossly normal Speech and movement: Normal speech and movement present Assessment & Plan Assessment & Plan (1) Chest pain: Code(s): R07.9 - Chest pain, unspecified Qualifiers: Chest pain type: unspecified Qualified Code(s): R07.9 - Chest pain, unspecified Plan: Patient experienced a 20-30 minute episode yesterday of a throbbing, nonradiating, midsternal chest pain without any other associated symptoms. She had a similar episode last week and EKG was normal. We discussed treatment today, and she declined repeat EKG. We reviewed indications for this test, however patient would like to return to the clinic for this if/when this pain recurs. She also does not wish to go to the emergency department at this time for any further evaluation. We discussed warning signs for cardiac event in which to report to emergency department immediately, which she verbalizes understanding of. Coding Level of Care Code Est Pt Level 3 (64110) Diagnoses Chest pain, unspecified type R07.9 Chest pain type: unspecified
== END 2023-09-06 14:35 | disposition home or self-care (01) ==
PROVIDERS: PCP Internal Medicine; Visit Provider Nurse Practitioner Family
DX: R07.9 Chest pain, unspecified (principal)
CPT/HCPCS: 99213

== ENCOUNTER 2023-09-07 13:11 | Outpatient (AMB) | payer MEDICARE, SELFPAY ==
[2023-09-07 13:24] VITALS: BP 138/76; PULSE 78; O2SAT 94; BMI 15.5
--- NOTE | 2023-09-07 13:24 | MHC.PC.OV ---
Vital Signs 09/07/23 13:24 Height 5 ft 4 in Weight 90 lb 2 oz BMI 15.5 BP 138/76 Blood Pressure Location Rt brachial Position Sitting Pulse 78 Pulse Source Pulse Oximeter Pulse Oximetry (%) 94 Oxygen Delivery Method Room Air Intake Visit Reasons: cut on bottom lip Allergies No Known Allergies Allergy (Verified 09/07/23 13:26) Medication List - Last Reconciled 09/07/23 by Vito Beal MD Advair Diskus 500-50 mcg/dose (fluticasone propion-salmeterol) 1 inh inhalation Q12H 30 days NS albuterol sulfate 90 mcg/actuation (ProAir HFA) 1 inh inhalation QID PRN 30 days albuterol sulfate 90 mcg/actuation 2 puffs inhalation Q4-6H PRN 30 days doxylamine succinate (Unisom (doxylamine)) 25 mg PO BEDTIME PRN fluticasone propion-salmeterol 250-50 mcg/dose (Advair Diskus) 1 inh inhalation BID 30 days fluticasone propionate 50 mcg/actuation (Allergy Relief (fluticasone)) 1 spray intranasal DAILY 30 days hydrocortisone 2.5% 1 appl topical BID nicotine 1 patch transdermal Q24H 28 days quetiapine (Seroquel) 25 mg PO BEDTIME 90 days sertraline 50 mg PO DAILY tiotropium bromide (Spiriva with HandiHaler) 1 cap inhalation DAILY 30 days tiotropium bromide (Spiriva with HandiHaler) 1 cap inhalation DAILY 30 days valacyclovir 1,000 mg PO BID 1 day Tobacco use date assessed: 08/15/23 HPI cut on bottom lip HPI Details Patient is 58-year-old female came in today to be evaluated for blister on her lip Patient have a history of cold sores before On examination she has developed a cold sore She already have a valacyclovir at home but she did not know what it is for. I have sent a refill instructed patient to take the medication 1 tablet in the morning 1 at night as soon as she started getting cold sores again. I have sent 20 tablets but patient was instructed to take it only 1 tablet Q 12 for 2 days and keep the rest for next flare-up [facility] Medical History Smoker EtOH dependence Recurrent major depression Anorexia nervosa Malnutrition Underweight COPD (chronic obstructive pulmonary disease) Nicotine dependence, cigarettes, uncomplicated Urinary urgency Eczema Colonoscopy refused Mammogram declined Surgical History History of cervical biopsy History of tonsillectomy History of surgery on arm Family History Father Family history unknown Mother No problems noted. Sister No problems noted. Social History Housing: House Alcohol intake: current Alcohol intake frequency: 0-2 drinks per day Patient Tobacco Use Status: Current everyday Tobacco user Tobacco use type: Cigarette Cigarettes Per Day: 15 Years Smoked: onset 13yo, 1ppd x 45yrs, now1/2ppd - 40pyh e-Cigarette/Vaping Use: Never Used Substance Use Type: Marijuana Current occupational status: disabled Sexual orientation: Straight/Heterosexual Gender identity: Female Cognitive needs: No Hearing needs: No Vision needs: No Questionnaire Thrive Questionnaire Date Thrive assessed: 08/03/21 Review of Systems Const All systems reviewed & are unremarkable except as noted in HPI and below Physical exam (Primary Care) Vital Signs: Last Vital Signs Pulse 78 09/07/23 13:24 BP 138/76 09/07/23 13:24 Pulse Ox 94 09/07/23 13:24 Oxygen Delivery Method Room Air 09/07/23 13:24 BMI result Body Mass Index 15.5 Tobacco/Smoking Status: Tobacco use Status Tobacco use date assessed 08/15/23 09/07/23 13:29 Patient Tobacco Use Status Current everyday Tobacco 09/07/23 13:29 Tobacco use type Cigarette 09/07/23 13:29 e-Cigarette/Vaping Use Never Used 09/07/23 13:29 Thrive Assessment: Date of Thrive Assessment Date Thrive assessed 08/03/21 09/07/23 13:29 Const General: no acute distress Orientation/consciousness: patient oriented x3 [facility] Nose image: 1. 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 I have sent a refill instructed patient to take the medication 1 tablet in the morning 1 at night as soon as she started getting cold sores again. I have sent 20 tablets but patient was instructed to take it only 1 tablet Q 12 for 2 days and keep the rest for next flare-up Medications: Changed From valacyclovir Take twice a day until cold sores have resolved. 1,000 mg PO BID 1 day 2 tabs 5RF cold sores B00.1 - Herpesviral vesicular dermatitis To valacyclovir Take twice a day until cold sores have resolved. 1,000 mg PO BID 20 tabs 5RF cold sores 10 days B00.1 - Herpesviral vesicular dermatitis Coding Level of Care Code Est Pt Level 3 (04744) Diagnoses Herpes labialis without complication B00.1
== END 2023-09-07 14:36 | disposition home or self-care (01) ==
LOC: HO.HMGC 13:11
PROVIDERS: PCP Internal Medicine; Visit Provider Internal Medicine
DX: B00.1 Herpesviral vesicular dermatitis (principal)
CPT/HCPCS: 99213

== ENCOUNTER 2023-09-12 12:45 | Outpatient (AMB) | payer MEDICARE, SELFPAY ==
[2023-09-12 12:56] VITALS: BP 120/66; PULSE 100; TEMP 36.9; O2SAT 100; BMI 15.4
--- NOTE | 2023-09-12 12:56 | AM.OFFWIN_ITS ---
Intake Vital Signs 09/12/23 12:56 Height 5 ft 4 in Weight 40.823 kg BMI 15.4 BP 120/66 Blood Pressure Location Rt brachial Position Sitting Pulse 100 Pulse Source Pulse Oximeter Temp 98.4 F Temp Source Temporal Artery Scan Pulse Oximetry (%) 100 Oxygen Delivery Method Room Air Intake Visit Reasons: EP hard time breathing Intake Note: Pt is here c/o having anxiety. Pt is in tears and states she wants to quit smoking but can't. Patient Tobacco Use Status: Current everyday Tobacco user Allergies No Known Allergies Allergy (Verified 09/12/23 13:01) Do you need a note to return to daycare/school/sports/work: No HPI HPI Comments History of Present Illness Details 1316 58 yo female hx of copd, anorexia, depre ssion, alcohol abuse presents w/ anxiety revolving around quitting smoking reports shes having a hard time. She reports she just gets anxious when she become short of breath shortness of breath has been present for years, unchanged. No cp, nausesa, vomiting, abd pain,headaches, hallucinations, suicidal or homicidal ideations at this time. She reports she has had suicidal thoughts in the past however no active Dr. griffin at this time. PE- Breath sounds w/ faint wheezing b/l very minimal .? Likely acute anxiety unlikely bipolar schizophrenia. Unlikely metabolic derangements. Shortness of breath likely secondary to chronic smoking versus emphysema versus COPD versus asthma. Unlikely pulmonary embolism, acute coronary syndrome, dissection pneumothorax. Plan- dc w/ reassurance that she can do it. Encouraged PCP follow up. Educated that there are several means to help her stop such as gum and patches and she did should discuss this with PCP No indication for section 12 Encouraged ED if worsening sx. [facility] Medical History Smoker EtOH dependence Recurrent major depression Anorexia nervosa Malnutrition Underweight COPD (chronic obstructive pulmonary disease) Nicotine dependence, cigarettes, uncomplicated Urinary urgency Eczema Colonoscopy refused Mammogram declined Surgical History History of cervical biopsy History of tonsillectomy History of surgery on arm Family History Father Family history unknown Mother No problems noted. Sister No problems noted. Social History Housing: House Alcohol intake: current Alcohol intake frequency: 0-2 drinks per day Patient Tobacco Use Status: Current everyday Tobacco user Tobacco use type: Cigarette Cigarettes Per Day: 15 Years Smoked: onset 13yo, 1ppd x 45yrs, now1/2ppd - 40pyh e-Cigarette/Vaping Use: Never Used Substance Use Type: Marijuana Current occupational status: disabled Sexual orientation: Straight/Heterosexual Gender identity: Female Cognitive needs: No Hearing needs: No Vision needs: No Review of Systems Const Details: Constitutional : No Weight loss, No Fever, No Chills, No Fatigue, No Malaise ENT/Mouth : No sore throat, No Rhinorrhea Eyes: No Eye Pain, No Swelling, No Redness Cardiovascular : No Chest Pain, + SOB, No Dyspnea on Exertion, No Orthopnea, No Edema, No Palpitations Respiratory : No Cough, No Sputum, No Wheezing Gastrointestinal : No Nausea, No Vomiting, No Diarrhea, No Constipation, No abdominal Pain, No Hematochezia, No Melena Genitourinary : No Dysuria, No Urinary Frequency, No Hematuria, Musculoskeletal : No joint pain, No Myalgias, No Joint Swelling Skin : No Skin Lesions, No rash Neuro : No Weakness, No Numbness, No Dizziness, No Headache Psych : + Anxiety/Panic, + Depression All other systems reviewed and are negative All systems reviewed & are unremarkable except as noted in HPI and below Physical Exam Vital Signs: Last Vital Signs Temp 98.4 F 09/12/23 12:56 Pulse 100 09/12/23 12:56 BP 120/66 09/12/23 12:56 Pulse Ox 100 09/12/23 12:56 Oxygen Delivery Method Room Air 09/12/23 12:56 BMI result Body Mass Index 15.4 vss Appearance: Alert.? Oriented X3.? No acute distress.? Head: Normocephalic, atraumatic, no step-offs or deformities Eyes: Pupils equal, round and reactive to light.? ENT: Pharynx normal.? Neck: Normal inspection.? Neck supple.? CVS: Normal heart rate and rhythm.? Pulses normal.? Respiratory: No respiratory distress.? Breath sounds w/ faint wheezing b/l very minimal .? Abdomen: Soft and nontender.? Skin: Skin warm and dry.? Normal skin color.? Normal skin turgor.? Extremities: No lower extremity edema.? No calf ttp. 5/5 strength to bilateral upper and lower extremities Neuro: Oriented X 3.? No motor deficit.? No sensory deficit. CN 2-12 intact Assessment & Plan Assessment & Plan (1) Anxiety: Code(s): F41.9 - Anxiety disorder, unspecified (2) Chronic shortness of breath: Code(s): R06.02 - Shortness of breath (3) Smoker: Code(s): F17.200 - Nicotine dependence, unspecified, uncomplicated Plan Take your medications as prescribed. If you were prescribed antibiotics today, it is important that you take your medication to their entirety, do not skip any doses, do not finish them early. Follow-up with your primary care provider this week. Return to the emergency department with new or worsening symptoms. Such as fevers, chills, chest pain, shortness of breath, nausea, vomiting, dizziness, headache, vision changes, lethargy In case of emergency call 911 Coding Level of Care Code Est Pt Level 3 (07614) Diagnoses Anxiety F41.9 Chronic shortness of breath R06.02 Smoker F17.200
== END 2023-09-12 15:00 | disposition home or self-care (01) ==
PROVIDERS: PCP Internal Medicine; Visit Provider Physician Assistant
DX: F41.9 Anxiety disorder, unspecified (principal); R06.02 Shortness of breath; F17.200 Nicotine dependence, unspecified, uncomplicated
CPT/HCPCS: 99213

== ENCOUNTER 2023-09-14 14:16 | Outpatient (AMB) | payer MEDICARE, SELFPAY ==
[2023-09-14 14:25] VITALS: BP 108/62; PULSE 85; TEMP 36.6; O2SAT 93; BMI 15.4
--- NOTE | 2023-09-14 14:25 | MHC.OFFWIV ---
Intake Vital Signs 09/14/23 14:25 Height 5 ft 4 in Weight 40.823 kg BMI 15.4 BP 108/62 Blood Pressure Location Rt brachial Position Sitting Pulse 85 Pulse Source Pulse Oximeter Temp 97.8 F Temp Source Temporal Artery Scan Pulse Oximetry (%) 93 Oxygen Delivery Method Room Air Intake Visit Reasons: EST/anxiety attack trouble breathing, stomach pain Intake Note: pt is here for c/o anxiety with trouble breathing Patient Tobacco Use Status: Current everyday Tobacco user Allergies No Known Allergies Allergy (Verified 09/14/23 14:26) Do you need a note to return to daycare/school/sports/work: Yes HPI HPI Comments History of Present Illness Details 1427 58 yo presents w/ acute anxiety attack she tells me she came in because she feels anxious about not being able to stop smoking. She reports shes always short of breath and has been for years but when she is anxious it gets worse. No si or hi. No hallucinations. No cp, fevers, chills, nausea, vomiting, hook, visio changes, dizziness Likely acute anxiety unlikely bipolar schizophrenia. Unlikely metabolic derangements. Shortness of breath likely secondary to chronic smoking versus emphysema versus COPD versus asthma. Unlikely pulmonary embolism, acute coronary syndrome, dissection pneumothorax. Plan- dc w/ reassurance that she can do it. Encouraged PCP follow up. Educated that there are several means to help her stop such as gum and patches and she did should discuss this with PCP No indication for section 12 Encouraged ED if worsening sx. [facility] Medical History Smoker EtOH dependence Recurrent major depression Anorexia nervosa Malnutrition Underweight COPD (chronic obstructive pulmonary disease) Nicotine dependence, cigarettes, uncomplicated Urinary urgency Eczema Colonoscopy refused Mammogram declined Surgical History History of cervical biopsy History of tonsillectomy History of surgery on arm Family History Father Family history unknown Mother No problems noted. Sister No problems noted. Social History Housing: House Alcohol intake: current Alcohol intake frequency: 0-2 drinks per day Patient Tobacco Use Status: Current everyday Tobacco user Tobacco use type: Cigarette Cigarettes Per Day: 15 Years Smoked: onset 13yo, 1ppd x 45yrs, now1/2ppd - 40pyh e-Cigarette/Vaping Use: Never Used Substance Use Type: Marijuana Current occupational status: disabled Sexual orientation: Straight/Heterosexual Gender identity: Female Cognitive needs: No Hearing needs: No Vision needs: No Review of Systems Const Details: Constitutional : No Weight loss, No Fever, No Chills, No Fatigue, No Malaise ENT/Mouth : No sore throat, No Rhinorrhea Eyes: No Eye Pain, No Swelling, No Redness Cardiovascular : No Chest Pain, + SOB, No Dyspnea on Exertion, No Orthopnea, No Edema, No Palpitations Respiratory : No Cough, No Sputum, No Wheezing Gastrointestinal : No Nausea, No Vomiting, No Diarrhea, No Constipation, No abdominal Pain, No Hematochezia, No Melena Genitourinary : No Dysuria, No Urinary Frequency, No Hematuria, Musculoskeletal : No joint pain, No Myalgias, No Joint Swelling Skin : No Skin Lesions, No rash Neuro : No Weakness, No Numbness, No Dizziness, No Headache Psych : + Anxiety/Panic, No Depression All other systems reviewed and are negative All systems reviewed & are unremarkable except as noted in HPI and below Physical Exam Vital Signs: Last Vital Signs Temp 97.8 F 09/14/23 14:25 Pulse 85 09/14/23 14:25 BP 108/62 09/14/23 14:25 Pulse Ox 93 09/14/23 14:25 Oxygen Delivery Method Room Air 09/14/23 14:25 BMI result Body Mass Index 15.4 Vital signs stable Appearance: Alert.? Oriented X3.? No acute distress.? Head: Normocephalic, atraumatic, no step-offs or deformities Eyes: Pupils equal, round and reactive to light.? ENT: Pharynx normal.? Neck: Normal inspection.? Neck supple.? CVS: Normal heart rate and rhythm.? Pulses normal.? Respiratory: No respiratory distress.? Breath sounds normal.? Abdomen: Soft and nontender.? Skin: Skin warm and dry.? Normal skin color.? Normal skin turgor.? Extremities: No lower extremity edema.? No calf ttp. 5/5 strength to bilateral upper and lower extremities Neuro: Oriented X 3.? No motor deficit.? No sensory deficit. CN 2-12 intact Assessment & Plan Assessment & Plan (1) COPD (chronic obstructive pulmonary disease): Code(s): J44.9 - Chronic obstructive pulmonary disease, unspecified Qualifiers: COPD type: emphysema Emphysema type: panlobular Qualified Code(s): J43.1 - Panlobular emphysema (2) Anxiety: Code(s): F41.9 - Anxiety disorder, unspecified Plan Take your medications as prescribed. If you were prescribed antibiotics today, it is important that you take your medication to their entirety, do not skip any doses, do not finish them early. Follow-up with your primary care provider this week. Return to the emergency department with new or worsening symptoms. Such as fevers, chills, chest pain, shortness of breath, nausea, vomiting, dizziness, headache, vision changes, lethargy In case of emergency call 911 Coding Level of Care Code Est Pt Level 3 (71078) Diagnoses Panlobular emphysema J43.1 COPD type: emphysema Emphysema type: panlobular Anxiety F41.9
== END 2023-09-14 14:57 | disposition home or self-care (01) ==
PROVIDERS: PCP Internal Medicine; Visit Provider Physician Assistant
DX: J43.1 Panlobular emphysema (principal); F41.9 Anxiety disorder, unspecified
CPT/HCPCS: 99213

== ENCOUNTER 2023-09-14 22:50 | Emergency (ER) | payer MEDICARE, SELFPAY ==
--- NOTE | ~2023-09-14 | XR_ITS ---
EXAMINATION: XR CHEST CLINICAL INFORMATION: Shortness of breath COMPARISON: CT lung July 20, 2023 TECHNIQUE: Frontal portable view of the chest was obtained. 11:01 PM FINDINGS: Emphysematous hyperinflation of lungs with coarse bronchovascular markings. No acute airspace disease. No pulmonary vascular congestion. No pleural effusion and no pneumothorax. Heart size is normal. Cardiac mediastinal contours are normal. Orthopedic plate and screw at the left humerus. XR/XR chest 1V IMPRESSION: No acute abnormality of the chest.
--- NOTE | ~2023-09-14 | CT_ITS ---
EXAMINATION: CT ANGIOGRAM OF THE CHEST WITH AND WITHOUT CONTRAST (CT PULMONARY ANGIOGRAM FOR PE) CLINICAL INFORMATION: Reason for Exam Shortness of breath COMPARISON: 07/20/2023. TECHNIQUE: Prior to contrast administration, noncontrast localization images were obtained. Subsequently, multidetector volumetric imaging was performed from the thoracic inlet to below the diaphragms following the administration of 80 mL Omnipaque 350 intravenous contrast. No contrast reaction reported Sagittal, coronal, and MIP oblique sagittal reformatted images were obtained on the CT workstation, uploaded to PACS, and reviewed. This CT examination was performed using dose optimization techniques as appropriate, variously including the following: *Automated exposure control *Adjustment of mA and/or kV according to patient size (this includes techniques or standardized protocols for targeted exams where dose is matched to indication/reason for exam; i.e. extremities or head) *Use of iterative reconstruction technique Total exam dose-length product 161 mGy-cm FINDINGS: QUALITY OF STUDY/CONTRAST BOLUS: Satisfactory. PULMONARY ARTERIES: No pulmonary emboli. THORACIC AORTA: No aneurysm. LUNG: There is diffuse emphysematous change. A stable right apical nodule/nodules are again seen. There is minimal atelectasis or scarring at the lung bases. PLEURA: No pleural effusion or pneumothorax. MEDIASTINUM: Normal heart size. No pericardial effusion. No hilar or mediastinal lymphadenopathy. No evidence of septal bowing or right heart strain. CORONARY ARTERY CALCIFICATION: None visualized on this study. CHEST WALL/AXILLA: No axillary or internal mammary lymphadenopathy. OSSEOUS STRUCTURES: A mild T6 compression fracture which was not seen previously. There is mild loss of height of L1 which was present previously. UPPER ABDOMEN: Unremarkable. No reflux of contrast into the hepatic veins to suggest elevated right heart pressures. CT/CT angio chest PE protocol IMPRESSION: No evidence for pulmonary embolism. Diffuse emphysema. T6 compression fracture not seen on prior study performed 07/20/2023. VTE: Negative for pulmonary embolism.
[2023-09-14 22:53] VITALS: BP 140/78; PULSE 116; RESP 25; TEMP 36.7; O2SAT 87; BMI 15.4
--- NOTE | 2023-09-14 23:03 | ECG_ITS ---
Test Reason : SOB Blood Pressure : / mmHG Vent. Rate : 095 BPM Atrial Rate : 095 BPM P-R Int : 108 ms QRS Dur : 084 ms QT Int : 354 ms P-R-T Axes : 045 106 068 degrees QTc Int : 444 ms Sinus rhythm with short MA Rightward axis RSR' or QR pattern in V1 suggests right ventricular conduction delay Nonspecific T wave abnormality Abnormal ECG When compared with ECG of 05-JUL-2016 09:51, Heart rate has increased T wave inversion now evident in Anteroseptal leads Referred By: Generic ED Physician Electronically Signed By:MARIELA PALOMARES MD
--- NOTE | 2023-09-14 23:40 | ED.SOB ---
HPI - SOB/Dyspnea General Chief Complaint: Dyspnea Stated Complaint: cant breathe, needs oxygen Time Seen by Provider: 09/14/23 23:27 Source: patient Mode of arrival: ambulatory Limitations: no limitations History of Present Illness HPI Narrative: Patient is smoker with history of COPD as inhaler at home comes here for increased shortness of breath with cough for last few days no fever no chills does have chest discomfort when she takes a deep breath or cough does have mucopurulent expectoration no leg swelling or pain no cardiac history in the past patient was seen in urgent care center earlier for anxiety Related Data Home Medications Medication Instructions Recorded Confirmed doxylamine succinate 25 mg tablet 25 mg PO BEDTIME PRN 12/19/22 09/07/23 (Unisom (doxylamine)) Previous Rx's Medication Instructions Recorded sertraline 50 mg tablet 50 mg PO DAILY #28 tabs 04/06/23 Advair Diskus 500 mcg-50 mcg/dose 1 inh inhalation Q12H 30 days #60 05/08/23 powder for inhalation (fluticasone ea propion-salmeterol) nicotine 14 mg/24 hr daily 1 patch transdermal Q24H 28 days 05/24/23 transdermal patch #28 ea tiotropium bromide 18 mcg capsule 1 cap inhalation DAILY SEVERE COPD 07/24/23 with inhalation device (Spiriva 30 days #30 inhalations with HandiHaler) fluticasone propionate 50 1 spray intranasal DAILY 30 days 07/27/23 mcg/actuation nasal #1 mL spray,suspension (Allergy Relief (fluticasone)) albuterol sulfate 90 mcg/actuation 1 inh inhalation QID PRN shortness 08/07/23 aerosol inhaler (ProAir HFA) of breath or wheezing 30 days #18 grams albuterol sulfate 90 mcg/actuation 2 puff inhalation Q4-6H PRN 08/09/23 aerosol inhaler shortness of breath or wheezing 30 days #8.5 grams fluticasone 250 mcg-salmeterol 50 1 inh inhalation BID copd 30 days 08/09/23 mcg/dose blistr powdr for #60 ea inhalation (Advair Diskus) tiotropium bromide 18 mcg capsule 1 cap inhalation DAILY COPD 30 08/09/23 with inhalation device (Spiriva days #30 inhalations with HandiHaler) hydrocortisone 2.5 % topical cream 1 appl topical BID #20 grams 08/21/23 quetiapine 25 mg tablet (Seroquel) 25 mg PO BEDTIME 90 days #90 tabs 08/23/23 valacyclovir 1 gram tablet 1,000 mg PO BID cold sores 10 days 09/07/23 #20 tabs albuterol sulfate 90 mcg/actuation 2 puff inhalation Q4-6H PRN 09/15/23 aerosol inhaler (ProAir HFA) shortness of breath or wheezing #8.5 grams cefuroxime axetil 500 mg tablet 500 mg PO BID 10 days #20 tabs 09/15/23 doxycycline hyclate 100 mg tablet 100 mg PO BID #20 tabs 09/15/23 prednisone 20 mg tablet 40 mg (2 x 20 mg) PO DAILY #10 tabs 09/15/23 Allergies Allergy/AdvReac Type Severity Reaction Status Date / Time No Known Allergies Allergy Verified 09/14/23 14:26 Review of Systems Review of Systems: Yes all other systems are reviewed and are negative PMFSH Past Medical History Medical History Smoker EtOH dependence Recurrent major depression Anorexia nervosa Malnutrition Underweight COPD (chronic obstructive pulmonary disease) Nicotine dependence, cigarettes, uncomplicated Urinary urgency Eczema Colonoscopy refused Mammogram declined Surgical History History of cervical biopsy History of tonsillectomy History of surgery on arm Family History Family History Father Family history unknown Mother No problems noted. Sister No problems noted. Social History Social History Housing: House Alcohol intake: current Alcohol intake frequency: 0-2 drinks per day Patient Tobacco Use Status: Current everyday Tobacco user Tobacco use type: Cigarette Cigarettes Per Day: 15 Years Smoked: onset 13yo, 1ppd x 45yrs, now1/2ppd - 40pyh Smoked in Last 30 Days: Yes e-Cigarette/Vaping Use: Never Used Use of substances other than those prescribed or required for medical reasons: No Substance Use Type: Marijuana Any prior treatment program specific to substance use: No Advance Directives: No Advance Directives Information Provided: Yes Patient : No Current occupational status: disabled Sexual orientation: Straight/Heterosexual Gender identity: Female Cognitive needs: No Hearing needs: No Vision needs: No Physical Exam Vital Signs: Vital Signs: Last Vital Signs Temp 98.5 F 09/15/23 00:56 Pulse 98 09/15/23 00:56 Resp 30 H 09/15/23 00:56 BP 107/62 09/15/23 00:56 Pulse Ox 93 09/15/23 01:35 O2 Del Method Nasal Cannula 09/15/23 01:35 O2 Flow Rate 2 09/15/23 01:35 BMI result Body Mass Index 15.4 Appearance: Alert. Oriented X3. No acute distress. Frequent cough ENT: Pharynx normal. Oral Mucosa moist Neck: Normal inspection. Neck supple. CVS: Normal heart rate and rhythm. Pulses normal. Respiratory: No respiratory distress. Equal air entry bilateral, bilateral wheezing and occasional crackles Abdomen: Soft and nontender. Bowel sounds are present, Skin: Skin warm and dry. Normal skin color. Normal skin turgor. Extremities: No lower extremity edema. No calf tenderness Neuro: Oriented X 3. No motor deficit. Medications Administered Discontinued Medications Generic Name Dose Route Start Last Admin Trade Name Freq PRN Reason Stop Dose Admin Albuterol Sulfate 5 mg 09/15/23 00:59 09/15/23 01:10 Albuterol Sulfate (0.083%) 2.5 Mg/3 Ml Vial.Neb INHALE 09/15/23 01:00 5 mg ONCE ONE Administration Cefuroxime Axetil 500 mg 09/15/23 01:02 09/15/23 01:29 Cefuroxime Axetil 500 Mg Tablet PO 09/15/23 01:03 500 mg ONCE ONE Administration Albuterol Sulfate 2.5 mg/ 0 mg 09/14/23 23:59 09/15/23 00:01 Albuterol/Ipratropium 3 ml INHALE 09/15/23 00:00 1 dose ONCE ONE Administration Doxycycline Monohydrate 100 mg 09/15/23 01:02 09/15/23 01:29 Doxycycline Monohydrate 100 Mg Capsule PO 09/15/23 01:03 100 mg ONCE ONE Administration Guaifenesin/Codeine Phosphate 10 ml 09/14/23 23:47 09/15/23 00:05 Guaifen/Codeine Sf 200/20/10ml 10 Ml Liquid PO 09/14/23 23:48 10 ml ONCE ONE Administration Iohexol 70 ml 09/15/23 02:44 09/15/23 02:45 Iohexol 350 Mg/Ml 100 Ml Infus..Btl IV 09/15/23 02:45 70 ml ONCE ONE Administration Methylprednisolone Sodium Succinate 125 mg 09/14/23 23:47 09/15/23 00:05 Methylprednisolone Sod Succ 125 Mg/2 Ml Vial IVPUSH 09/14/23 23:48 125 mg ONCE ONE Administration Medical Decision Making Medical Decision Making [facility] Narrative: Patient with panlobular emphysema desaturated to 87% at room air patient does not have any oxygen at home still smoker, will admit patient for hypoxia, CTA chest to rule out PE , ABG blood culture lactic acid. Patient refusing all of this know that she may at home if does not have any oxygen ultimately patient agreed to stay in the hospital 210 patient refused again to stay in the hospital does not want any labs signed against medical advise Differential Diagnosis Differential Diagnoses: The differential diagnosis associated with the presentation includes Admission/Observation Consideration of admission/observation: Escalation of care including admission/observation considered Lab Data [facility] Lab Attestation statement: I reviewed the patient's lab results. 09/14/23 23:42 09/14/23 23:42 Labs: Lab Results 09/14/23 09/15/23 Range/Units 23:42 00:04 WBC 16.9 H (4.8-10.8) X10*3/uL RBC 3.92 L (4.20-5.50) X10*6/uL Hgb 11.9 L (12.0-16.0) g/dl Hct 35.1 L (37.0-47.0) % MCV 89.5 (80.0-98.0) fL MCH 30.4 (27.0-33.0) pg MCHC 33.9 (31.0-35.0) g/dl RDW 11.8 (11.0-16.0) % Plt Count 350 (160-400) X10*3/uL MPV 9.7 (9.4-12.3) fL Immature Gran % (Auto) 0.3 (0.0-0.4) % Neut % (Auto) 85.9 H (45-73) % Lymph % (Auto) 5.3 L (20-40) % Dewitt % (Auto) 7.9 (2-11) % Eos % (Auto) 0.4 (0-4) % Baso % (Auto) 0.2 (0-2) % Lymph # (Auto) 0.9 L (1.2-4.9) X10*3/uL Dewitt # (Auto) 1.3 H (0.1-1.2) X10*3/uL Eos # (Auto) 0.1 (0.0-0.4) X10*3/uL Baso # (Auto) 0.0 (0.0-0.2) X10*3/uL Abs Immat Gran (auto) 0.05 H (0.00-0.03) X10*3/uL Absolute Neuts (auto) 14.5 H (2.0-8.3) x10*3/uL Absolute Nucleated RBC 0.000 (0.0-0.012) X10*3/uL Nucleated RBC % (auto) 0.0 (0.0-0.2) /100WBC Sodium 138 (135-145) mmol/L Potassium 3.9 (3.3-5.1) mmol/L Chloride 100 (96-108) mmol/L Carbon Dioxide 29 (22-29) mmol/L Anion Gap 13 (12-20) BUN 8 L (9-16) mg/dL Creatinine 0.67 (0.5-1.4) mg/dL Estim Creat Clear Calc 57.5 Estimated GFR > 60 Random Glucose 147 H (60-115) mg/dL Calcium 9.7 (8.4-10.2) mg/dL Total Bilirubin 0.3 (0.0-1.0) mg/dL Direct Bilirubin 0.1 (0.0-0.5) mg/dL AST 27 (5-31) U/L ALT 15 (0-31) U/L Alkaline Phosphatase 59 (39-117) U/L Troponin I High Sens 3.3 (<3.5-17.0) ng/L Total Protein 8.2 H (6.5-8.0) g/dL Albumin 3.9 (3.5-5.0) g/dL Lipase 20 (8-78) U/L COVID-19 ([facility]LEE) Negative (Negative) COVID-19 Clin Com See Note Independent Interpretation I performed an independent interpretation of an: EKG and Plain X-Ray Interpretation: Normal sinus rhythm heart rate 95 beats prominent right side axis no acute ST-T change and no acute ischemia Radiology Impression Discussion of test interpretation with radiology: I have reviewed the radiologist's reading. Discharge Plan Discharge Clinical Impression: Acute exacerbation of chronic obstructive airways disease, Acute and chronic respiratory failure with hypoxia Patient Disposition: Left Against Medical Advice Instructions: COPD (Chronic Obstructive Pulmonary Disease) (ED), Hypoxia (ED) Additional Instructions: Take your inhalers and prednisone and antibiotic as prescribed Your signing against medical advise knowing that you have low oxygen level and you may please come back to the hospital for admission and further management Prescriptions: New prednisone 20 mg tablet 40 mg PO DAILY Qty: 10 0RF cefuroxime axetil 500 mg tablet 500 mg PO BID 10 Days Qty: 20 0RF albuterol sulfate [ProAir HFA] 90 mcg/actuation HFA aerosol inhaler 2 puff inhalation Q4-6H PRN (Reason: shortness of breath or wheezing) Qty: 8.5 0RF doxycycline hyclate 100 mg tablet 100 mg PO BID Qty: 20 0RF No Action fluticasone propion-salmeterol [Advair Diskus] 500-50 mcg/dose blister with device 1 inh inhalation Q12H 30 Days Qty: 60 0RF Spiriva with HandiHaler 18 mcg capsule, w/inhalation device 1 cap inhalation DAILY 30 Days Qty: 30 0RF Rx Instructions: puncture 1 cap using device; one dose = 2 inhalations albuterol sulfate [ProAir HFA] 90 mcg/actuation HFA aerosol inhaler 1 inh inhalation QID PRN (Reason: shortness of breath or wheezing) 30 Days Qty: 18 1RF quetiapine [Seroquel] 25 mg tablet 25 mg PO BEDTIME 90 Days Qty: 90 0RF Unisom (doxylamine) 25 mg tablet 25 mg PO BEDTIME PRN sertraline 50 mg tablet 50 mg PO DAILY Qty: 28 0RF Rx Instructions: take 1/2 tablet by mouth first 3 days if tolerate take full tablet po qd fluticasone propionate [Allergy Relief (fluticasone)] 50 mcg/actuation spray,suspension 1 spray intranasal DAILY 30 Days Qty: 1 2RF Rx Instructions: administer into each nostril hydrocortisone 2.5 % cream 1 appl topical BID Qty: 20 0RF valacyclovir 1 gram tablet 1,000 mg PO BID 10 Days Qty: 20 5RF Rx Instructions: Take twice a day until cold sores have resolved. nicotine 14 mg/24 hr patch 24 hour 1 patch transdermal Q24H 28 Days Qty: 28 3RF fluticasone propion-salmeterol [Advair Diskus] 250-50 mcg/dose blister with device 1 inh inhalation BID 30 Days Qty: 60 5RF tiotropium bromide [Spiriva with HandiHaler] 18 mcg capsule, w/inhalation device 1 cap inhalation DAILY 30 Days Qty: 30 5RF Rx Instructions: puncture 1 cap using device; one dose = 2 inhalations albuterol sulfate 90 mcg/actuation HFA aerosol inhaler 2 puff inhalation Q4-6H PRN (Reason: shortness of breath or wheezing) 30 Days Qty: 8.5 3RF Stand Alone Forms: Against Medical Advice Interventions: ED Discharge Assessment Last Done: 09/15/23 03:00 Discharge Date/Time: 09/15/23 02:50
[2023-09-14 23:47] LABS: Basophils Percent Auto 0.2 % (0-2); Eosinophils Absolute Auto 0.1 X10*3/uL (0.0-0.4); Eosinophils Percent Auto 0.4 % (0-4); Hematocrit 35.1 % (37.0-47.0); Hemoglobin 11.9 g/dl (12.0-16.0); Imm Gran Abs Auto 0.05 X10*3/uL (0.00-0.03); Imm Gran Pct Auto 0.3 % (0.0-0.4); Lymphocytes Absolute Auto 0.9 X10*3/uL (1.2-4.9); Lymphocytes Percent Auto 5.3 % (20-40); MANUAL DIFF FLAG NO; Mean Corpuscular HGB Conc 33.9 g/dl (31.0-35.0); Mean Corpuscular Hemoglobin 30.4 pg (27.0-33.0); Mean Corpuscular Volume 89.5 fL (80.0-98.0); Mean Platelet Volume 9.7 fL (9.4-12.3); Monocytes Absolute Auto 1.3 X10*3/uL (0.1-1.2); Monocytes Percent Auto 7.9 % (2-11); Neutrophils Absolute Auto 14.5 x10*3/uL (2.0-8.3); Neutrophils Percent Auto 85.9 % (45-73); Platelet Count 350 X10*3/uL (160-400); Red Blood Count 3.92 X10*6/uL (4.20-5.50); Red Cell Distribution Width 11.8 % (11.0-16.0); White Blood Count 16.9 X10*3/uL (4.8-10.8)
[2023-09-15] MEDS: Albuterol Sulfate 2.5 MG, Albuterol/Iprat 2.5/0.5MG 3 ML 3 ML INHALE (00:01)
[2023-09-15 00:02] VITALS: PULSE 108; RESP 22; O2SAT 99
[2023-09-15 00:04] LABS: Alanine Aminotransferase 15 U/L (0-31); Albumin Level 3.9 g/dL (3.5-5.0); Alkaline Phosphatase 59 U/L (39-117); Anion Gap 13 (12-20); Aspartate Amino Transferase 27 U/L (5-31); Bilirubin Direct 0.1 mg/dL (0.0-0.5); Bilirubin Total 0.3 mg/dL (0.0-1.0); Blood Urea Nitrogen 8 mg/dL (9-16); Calcium 9.7 mg/dL (8.4-10.2); Carbon Dioxide 29 mmol/L (22-29); Chloride 100 mmol/L (96-108); Creatinine Clr Calc Pharmacy 57.5; Estimated Glomerular Filt Rate > 60; Glucose Random 147 mg/dL (60-115); Lipase 20 U/L (8-78); Potassium 3.9 mmol/L (3.3-5.1); Sodium 138 mmol/L (135-145); Total Protein 8.2 g/dL (6.5-8.0)
[2023-09-15] MEDS: guaiFEN/Codeine SF 200/20/10ML 10 ML LIQUID PO (00:05)
[2023-09-15] MEDS: methylPREDNISolone Sod Succ 125 MG/2 ML VIAL IVPUSH (00:05)
[2023-09-15 00:08] LABS: Troponin-I High Sensitivity 3.3 ng/L (<3.5-17.0)
--- NOTE | 2023-09-15 00:13 | PC.NURSE ---
Patient alert and oriented X4, tearful and concerned about her smoking and questioning about anxiety. IV placed by this RN, labs drawn, and medicated per DEC.
[2023-09-15 00:35] LABS: COVID-19 Test Negative (Negative); IDNOW Serial# BCCEAD1C
--- NOTE | 2023-09-15 00:54 | PC.NURSE ---
This RN notified by tech that patient is questioning about discharge. Pt informe by this RN that we are waiting for all the results of her test to come back. Pt O2 sat was 96% on 2L nc. Pt oxygen removed and explained to patiet that she would not be able to go home if she was requiring o2 at this time. O2 removed and patient sat was 95% on room air. Lung sounds clear. Pt stated she needed to use the bathroom and when offered to assist her she reported that she would wait until she was discharged. informed and currently working on discharge.
[2023-09-15 00:56] VITALS: BP 107/62; PULSE 98; RESP 30; TEMP 36.9; O2SAT 90
[2023-09-15] MEDS: Albuterol Sulfate (0.083%) 2.5 MG/3 ML VIAL.NEB 5 MG INHALE (01:10)
[2023-09-15 01:25] VITALS: O2SAT 87
[2023-09-15] MEDS: Doxycycline Monohydrate 100 MG CAPSULE PO (01:29)
[2023-09-15] MEDS: cefuroxime axetiL 500 MG TABLET PO (01:29)
[2023-09-15 01:35] VITALS: O2SAT 93
--- NOTE | 2023-09-15 01:36 | PC.NURSE ---
Ptient placed back on nasal cannula at 2L d/t sats dropping down to 87%. Sats improved to 93% on 2L NC.
--- NOTE | 2023-09-15 02:26 | PC.NURSE ---
Pt requesting to leave. This was discussed with , came to bedside and patient was agreeable to admission. This RN at bedside to draw ordered labs and patient again requesting to leave. This RN asked why patient wanted to leave and she stated she just wanted to go home and that she would see her primary care doctor. notified.
[2023-09-15] MEDS: iohexoL 350 MG/ML 100 ML INFUS..BTL 70 ML IV (02:45)
== END 2023-09-15 02:50 | disposition left against medical advice (07) ==
PROVIDERS: Emergency Provider Internal Medicine; PCP Internal Medicine
DX: J44.1 Chronic obstructive pulmonary disease with (acute) exacerbation (principal); J45.901 Unspecified asthma with (acute) exacerbation; J96.01 Acute respiratory failure with hypoxia; R05.9 Cough, unspecified; R07.89 Other chest pain; F17.210 Nicotine dependence, cigarettes, uncomplicated; Z11.52 Encounter for screening for COVID-19; Z20.822 Contact with and (suspected) exposure to COVID-19; Z71.6 Tobacco abuse counseling; Z79.899 Other long term (current) drug therapy
CPT/HCPCS: 36415; 71045; 71275; 80048; 80076; 83690; 84484; 85025; 87635; 93005; 94640; 96374; 99285; J2930; Q9967

== ENCOUNTER 2023-09-28 11:25 | Outpatient (AMB) | payer MEDICARE, SELFPAY ==
--- NOTE | 2023-09-28 11:30 | MHC.PC.OV ---
Vital Signs 09/28/23 11:39 Height 5 ft 3 in Weight 84 lb BMI 14.9 BP 110/68 Blood Pressure Location Lt brachial Position Sitting Pulse 76 Pulse Source Pulse Oximeter Pulse Oximetry (%) 96 Intake Visit Reasons: [facility] [place] ED F/U COPD Allergies No Known Allergies Allergy (Verified 09/28/23 11:30) Medication List - Last Reconciled 09/28/23 by Vito Beal MD Advair Diskus 500-50 mcg/dose (fluticasone propion-salmeterol) 1 inh inhalation Q12H 30 days NS albuterol sulfate 90 mcg/actuation (ProAir HFA) 2 puffs inhalation Q4-6H PRN albuterol sulfate 90 mcg/actuation (ProAir HFA) 1 inh inhalation QID PRN 30 days albuterol sulfate 90 mcg/actuation 2 puffs inhalation Q4-6H PRN 30 days doxylamine succinate (Unisom (doxylamine)) 25 mg PO BEDTIME PRN fluticasone propion-salmeterol 250-50 mcg/dose (Advair Diskus) 1 inh inhalation BID 30 days fluticasone propionate 50 mcg/actuation (Allergy Relief (fluticasone)) 1 spray intranasal DAILY 30 days sertraline 50 mg PO DAILY tiotropium bromide (Spiriva with HandiHaler) 1 cap inhalation DAILY 30 days tiotropium bromide (Spiriva with HandiHaler) 1 cap inhalation DAILY 30 days valacyclovir 1,000 mg PO BID 10 days Tobacco use date assessed: 09/28/23 Dental Screening Dental Screen Date: 09/28/23 Did you have a dental visit in the last 12 months?: No Did you have a dental problem in the last 6 months where you did not have access to dental care?: No Was dental information given to patient?: No HPI [facility] [place] ED F/U COPD HPI Details Patient is 58-year-old female chronic smoker with severe COPD presented to [facility] Emergency room yesterday with chief complaint of shortness of breath with cough, which has been happening for a while. Continued to smoke Patient goes to [facility]. She also suffers from severe depression and anxiety Also drink alcohol regularly every night mixed with orange juice Patient is not careful about her diet either Pulse ox was 93 2 L nasal cannula in emergency room She desaturated to 87% at room air Patient was supposed to be admitted for hypoxia CTA chest was ordered to rule out PE EKG showed normal sinus rhythm 95 beats per minute no acute ST T changes no acute ischemia She left against medical advice She is supposed to be taking Advair Spiriva She is also on Seroquel 25 at bedtime Unisom 25 at bedtime Sertraline 50 mg Flonase nasal spray And valacyclovir for cold sore break out Patient is supposed to be on nicotine patch 14 mg but she is not using it and continued to smoke She came in today for visit Continued to have cough productive of green phlegm and continued to feel short of breath Her next pulmonary appointment is in November Today her pulse ox is 96% on room air She is here with her daughter whose telephone #[phone] Due to patient's memory issues, she is forgetting to take medications and also forgetting to know which medication is for what I have created a referral for her to be evaluated by Neurology We will also see if we can get a personal lines insurance advisor for the patient. I have sent her depression when bipolar medications again She will meet with our behavior health coordinator today in the presence of her daughter. So we can get her established with a therapist and psychiatrist. I have also printed medication list and had to the daughter, and explained which medication and inhalers is for what reason and who is prescribing it. [facility] Medical History Smoker EtOH dependence Recurrent major depression Anorexia nervosa Malnutrition Underweight COPD (chronic obstructive pulmonary disease) Nicotine dependence, cigarettes, uncomplicated Urinary urgency Eczema Colonoscopy refused Mammogram declined Surgical History History of cervical biopsy History of tonsillectomy History of surgery on arm Family History Father Family history unknown Mother No problems noted. Sister No problems noted. Social History Housing: House Alcohol intake: current Alcohol intake frequency: 0-2 drinks per day Patient Tobacco Use Status: Current everyday Tobacco user Tobacco use type: Cigarette Cigarettes Per Day: 15 Years Smoked: onset 13yo, 1ppd x 45yrs, now1/2ppd - 40pyh e-Cigarette/Vaping Use: Never Used Substance Use Type: Marijuana Current occupational status: disabled Sexual orientation: Straight/Heterosexual Gender identity: Female Cognitive needs: No Hearing needs: No Vision needs: No Questionnaire PHQ-9 Over the last 2 weeks, how often have you been bothered by any of the following problems? 1. Little interest or pleasure in doing things: not at all 2. Feeling down, depressed, or hopeless: more than half the days 3. Trouble falling or staying asleep, or sleeping too much: more than half the days 4. Feeling tired or having little energy: several days 5. Poor appetite or overeating: more than half the days 6. Feeling bad about yourself - or that you are a failure or have let yourself or your family down: not at all 7. Trouble concentrating on things, such as reading the newspaper or watching television: not at all 8. Moving or speaking so slowly that other people could have noticed. Or the opposite - being so fidgety or restless that you have been moving around a lot more than usual: several days 9. Thoughts that you would be better off or of hurting yourself in some way: nearly every day Total score: 11 Depression Screening Interpretation: Positive Depression Screening Done: Yes 45401 - PHQ-9 Billing: Yes Source: Developed by Drs. Ganga Bauer, Brooklyn Benedict, Dionte Puente and colleagues, with an educational albert from [employer]. Thrive Questionnaire Date Thrive assessed: 08/03/21 STEVE-7 AMB Questionnaire STEVE-7 Date STEVE - 7 assessed: 09/28/23 Feeling nervous, anxious, or on edge: 1 = Several days Not being able to stop or control worryin = Several days Worrying too much about different things: 1 = Several days Trouble relaxin = Several days Being so restless that it is hard to sit still: 1 = Several days Becoming easily annoyed or irritable: 2 = More than half the days Feeling afraid as if something awful might happen: 0 = Not at all Total STEVE-7 score (0-4 normal; 5-9 mild; 10-14 moderate; 15-21 severe): 7 Source: Developed by Drs. Ganga Bauer, Dionte Crowder and colleagues, with an educational albert from [employer]. STEVE-7 Assessment Billing STEVE-7 Assessment Tool: STEVE-7 Assessment 49872 Review of Systems Const Denies chills and Denies fever(s) ENT Denies epistaxis and Denies nasal discharge Card Denies chest pain Resp Denies chest congestion and Denies hemoptysis GI Denies diarrhea and Denies nausea Skin/Breast Denies rash Neuro Reports no additional complaints Psych Reports no additional complaints Endo Reports no additional complaints Physical exam (Primary Care) Vital Signs: Last Vital Signs Pulse 76 09/28/23 11:39 BP 110/68 09/28/23 11:39 Pulse Ox 96 09/28/23 11:39 BMI result Body Mass Index 14.9 Tobacco/Smoking Status: Tobacco use Status Tobacco use date assessed 09/28/23 09/28/23 11:31 Patient Tobacco Use Status Current everyday Tobacco 09/28/23 11:31 Tobacco use type Cigarette 09/28/23 11:31 e-Cigarette/Vaping Use Never Used 09/28/23 11:31 PHQ-9: PHQ-9 Score PHQ-9: Total score 11 09/28/23 15:09 Depression Screening Interpretation: Positive Thrive Assessment: Date of Thrive Assessment Date Thrive assessed 08/03/21 09/28/23 11:31 Const General: cooperative, comfortable and no acute distress Orientation/consciousness: patient oriented x3 HENMT Head: Yes normocephalic Eyes General: appearance normal, both eyes and all related structures Neck Neck: Yes supple Resp Effort & Inspection: no cough and no stridor Skin General skin exam: turgor normal Neuro General: patient oriented x3, tone normal and moves all extremities Extrem Right lower extremity: no edema Left lower extremity: no edema Assessment and Plan Assessment & Plan (1) Memory change: Code(s): R41.3 - Other amnesia (2) COPD (chronic obstructive pulmonary disease): Code(s): J44.9 - Chronic obstructive pulmonary disease, unspecified Qualifiers: COPD type: emphysema Emphysema type: panlobular Qualified Code(s): J43.1 - Panlobular emphysema (3) Malnutrition: Code(s): E46 - Unspecified protein-calorie malnutrition Qualifiers: Malnutrition type: protein-calorie malnutrition Protein-calorie malnutrition severity: moderate Qualified Code(s): E44.0 - Moderate protein-calorie malnutrition (4) EtOH dependence: Code(s): F10.20 - Alcohol dependence, uncomplicated Qualifiers: Substance use status: uncomplicated Qualified Code(s): F10.20 - Alcohol dependence, uncomplicated (5) Recurrent major depression: Code(s): F33.9 - Major depressive disorder, recurrent, unspecified Qualifiers: Active/Remission status: currently active Major depression episode severity: moderate Qualified Code(s): F33.1 - Major depressive disorder, recurrent, moderate (6) Herpes labialis without complication: Code(s): B00.1 - Herpesviral vesicular dermatitis (7) Trigger finger, right middle finger: Code(s): M65.331 - Trigger finger, right middle finger (8) Nicotine dependence, cigarettes, uncomplicated: Comment: (Current smoker - onset 13yo, 1ppd x 45yrs, now1/2ppd - 40pyh) Code(s): F17.210 - Nicotine dependence, cigarettes, uncomplicated (9) Hospital discharge follow-up: Code(s): Z09 - Encounter for follow-up examination after completed treatment for conditions other than malignant neoplasm Plan Patient is 58-year-old female chronic smoker with severe COPD presented to [facility] Emergency room yesterday with chief complaint of shortness of breath with cough, which has been happening for a while. Continued to smoke Patient goes to [facility] [facility]. She also suffers from severe depression and anxiety Also drink alcohol regularly every night mixed with orange juice Patient is not careful about her diet either Pulse ox was 93 2 L nasal cannula in emergency room She desaturated to 87% at room air Patient was supposed to be admitted for hypoxia CTA chest was ordered to rule out PE EKG showed normal sinus rhythm 95 beats per minute no acute ST T changes no acute ischemia She left against medical advice She is supposed to be taking Advair Spiriva She is also on Seroquel 25 at bedtime Unisom 25 at bedtime Sertraline 50 mg Flonase nasal spray And valacyclovir for cold sore break out Patient is supposed to be on nicotine patch 14 mg but she is not using it and continued to smoke She came in today for visit Continued to have cough productive of green phlegm and continued to feel short of breath Her next pulmonary appointment is in November Today her pulse ox is 96% on room air She is here with her daughter whose telephone #[phone] Due to patient's memory issues, she is forgetting to take medications and also forgetting to know which medication is for what I have created a referral for her to be evaluated by Neurology We will also see if we can get a personal lines insurance advisor for the patient. I have sent her depression when bipolar medications again She will meet with our behavior health coordinator today in the presence of her daughter. So we can get her established with a therapist and psychiatrist. I have also printed medication list and had to the daughter, and explained which medication and inhalers is for what reason and who is prescribing it. Orders: Referrals Neurology Referral R41.3 - Other amnesia Medications: Refilled quetiapine (Seroquel) 25 mg PO BEDTIME 90 tabs 0RF 90 days sertraline take 1/2 tablet by mouth first 3 days if tolerate take full tablet po qd 50 mg PO DAILY 90 tabs 0RF F33.9 - Major depressive disorder, recurrent, unspecified tiotropium bromide (Spiriva with HandiHaler) puncture 1 cap using device; one dose = 2 inhalations 1 cap inhalation DAILY 30 inhalations 2RF SEVERE COPD 30 days Discontinued albuterol sulfate 90 mcg/actuation (ProAir HFA) Discontinued Reason: Doctor's Order 2 puffs inhalation Q4-6H PRN 8.5 grams 0RF shortness of breath or wheezing albuterol sulfate 90 mcg/actuation (ProAir HFA) Discontinued Reason: Duplicate 1 inh inhalation QID 30 days PRN 18 grams 1RF shortness of breath or wheezing tiotropium bromide (Spiriva with HandiHaler) puncture 1 cap using device; one dose = 2 inhalations Discontinued Reason: Doctor's Order 1 cap inhalation DAILY 30 days 30 inhalations 5RF COPD Coding Level of Care Code Est Pt Level 5 (54440) Diagnoses Memory change R41.3 Panlobular emphysema J43.1 COPD type: emphysema Emphysema type: panlobular Moderate protein-calorie malnutrition E44.0 Malnutrition type: protein-calorie malnutrition Protein-calorie malnutrition severity: moderate Uncomplicated alcohol dependence F10.20 Substance use status: uncomplicated Moderate episode of recurrent major depressive disorder F33.1 Active/Remission status: currently active Major depression episode severity: moderate Herpes labialis without complication B00.1 Trigger finger, right middle finger M65.331 Nicotine dependence, cigarettes, uncomplicated F17.210 Hospital discharge follow-up Z09 Additional Codes STEVE-7 Assessment Billing - STEVE-7 Assessment Tool: STEVE-7 Assessment 48018 ([id number]) Time Spent (min) 45 Comment 45 minute spent in care of this patient
[2023-09-28 11:39] VITALS: BP 110/68; PULSE 76; O2SAT 96; BMI 14.9
== END 2023-09-28 14:03 | disposition home or self-care (01) ==
PROVIDERS: PCP Internal Medicine; Visit Provider Internal Medicine
DX: R41.3 Other amnesia (principal); J43.1 Panlobular emphysema; E44.0 Moderate protein-calorie malnutrition; F10.20 Alcohol dependence, uncomplicated; F33.1 Major depressive disorder, recurrent, moderate; B00.1 Herpesviral vesicular dermatitis; M65.331 Trigger finger, right middle finger; F17.210 Nicotine dependence, cigarettes, uncomplicated; Z09 Encounter for follow-up examination after completed treatment for conditions other than malignant neoplasm
CPT/HCPCS: 96127; 99215

== ENCOUNTER 2023-10-17 11:13 | Outpatient (AMB) | payer MEDICARE, SELFPAY ==
[2023-10-17 11:15] VITALS: BP 118/64; PULSE 83; O2SAT 91; BMI 15.0
--- NOTE | 2023-10-17 11:15 | A.OFFPC_ITS ---
Vital Signs 10/17/23 11:15 Height 5 ft 3 in Weight 84 lb 8 oz BMI 15.0 BP 118/64 Blood Pressure Location Rt brachial Position Sitting Pulse 83 Pulse Source Pulse Oximeter Pulse Oximetry (%) 91 L Oxygen Delivery Method Room Air Intake Visit Reasons: Weight loss concerns Allergies No Known Allergies Allergy (Verified 10/17/23 11:25) Medication List - Last Reconciled 10/17/23 by Vito Beal MD Advair Diskus 500-50 mcg/dose (fluticasone propion-salmeterol) 1 inh inhalation Q12H 30 days NS albuterol sulfate 90 mcg/actuation 2 puffs inhalation Q4-6H PRN 30 days doxylamine succinate (Unisom (doxylamine)) 25 mg PO BEDTIME PRN fluticasone propion-salmeterol 250-50 mcg/dose (Advair Diskus) 1 inh inhalation BID 30 days fluticasone propionate 50 mcg/actuation (Allergy Relief (fluticasone)) 1 spray intranasal DAILY 30 days quetiapine (Seroquel) 25 mg PO BEDTIME 90 days sertraline 50 mg PO DAILY tiotropium bromide (Spiriva with HandiHaler) 1 cap inhalation DAILY 30 days valacyclovir 1,000 mg PO BID 10 days Tobacco use date assessed: 10/17/23 Dental Screening Dental Screen Date: 10/17/23 Did you have a dental visit in the last 12 months?: No Did you have a dental problem in the last 6 months where you did not have access to dental care?: No Was dental information given to patient?: Patient declined HPI Weight loss concerns HPI Details Patient is 58-year-old female who is having difficulty gaining weight due to severe COPD Continued to smoke but ready to quit. Patient says that tomorrow is her mother's birthday and she is going to stop smoking She is currently smoking 8 cigarettes daily. Since early this month patient was able to gain 8 oz. She suffers from severe depression but do not want to see a therapist or psychiatrist She met with our behavior health coordinator again today. [facility] Medical History (Updated 10/17/23 @ 14:08 by Vito Beal MD) Smoker Anorexia nervosa Underweight Nicotine dependence, cigarettes, uncomplicated Urinary urgency Eczema Colonoscopy refused Mammogram declined Surgical History History of cervical biopsy History of tonsillectomy History of surgery on arm Family History Father Family history unknown Mother No problems noted. Sister No problems noted. Social History Housing: House Alcohol intake: current Alcohol intake frequency: 0-2 drinks per day Patient Tobacco Use Status: Current everyday Tobacco user Tobacco use type: Cigarette Cigarettes Per Day: 15 Years Smoked: onset 13yo, 1ppd x 45yrs, now1/2ppd - 40pyh e-Cigarette/Vaping Use: Never Used Substance Use Type: Marijuana Current occupational status: disabled Sexual orientation: Straight/Heterosexual Gender identity: Female Cognitive needs: No Hearing needs: No Vision needs: No Questionnaire Thrive Questionnaire Date Thrive assessed: 08/03/21 AUDIT C Alcohol Use Questionnaire (AUDIT-C) 1. How often do you have a drink containing alcohol?: Never 3. How often do you have six or more drinks on one occasion?: Never Total Score: 0 Score Reviewed/Action Taken: Yes STEVE-7 AMB Questionnaire STEVE-7 Date STEVE - 7 assessed: 09/28/23 Source: Developed by Drs. Ganga Bauer, Brooklyn Benedict, Dionte Puente and colleagues, with an educational albert from [employer]. Review of Systems Const Denies chills and Denies fever(s) ENT Denies epistaxis and Denies nasal discharge Card Denies chest pain Resp Denies chest congestion, Denies cough and Denies hemoptysis GI Denies diarrhea and Denies nausea Skin/Breast Denies rash Neuro Reports no additional complaints Psych Reports no additional complaints Endo Reports no additional complaints Physical exam (Primary Care) Vital Signs: Last Vital Signs Pulse 83 10/17/23 11:15 BP 118/64 10/17/23 11:15 Pulse Ox 91 L 10/17/23 11:15 Oxygen Delivery Method Room Air 10/17/23 11:15 BMI result Body Mass Index 15.0 Tobacco/Smoking Status: Tobacco use Status Tobacco use date assessed 10/17/23 10/17/23 11:25 Patient Tobacco Use Status Current everyday Tobacco 10/17/23 11:18 Tobacco use type Cigarette 10/17/23 11:18 e-Cigarette/Vaping Use Never Used 10/17/23 11:18 Thrive Assessment: Date of Thrive Assessment Date Thrive assessed 08/03/21 10/17/23 11:18 Const General: cooperative, comfortable and no acute distress Orientation/consciousness: patient oriented x3 HENMT Head: Yes normocephalic Eyes General: appearance normal, both eyes and all related structures Neck Neck: Yes supple Resp Effort & Inspection: normal respiratory effort, no cough and no stridor Cardio Rhythm: regular rhythm Heart sounds: S1 normal heart sound present and S2 normal heart sound present Skin General skin exam: turgor normal Neuro General: patient oriented x3, tone normal and moves all extremities Extrem Right lower extremity: no edema Left lower extremity: no edema Assessment and Plan Assessment & Plan (1) COPD (chronic obstructive pulmonary disease): Code(s): J44.9 - Chronic obstructive pulmonary disease, unspecified Qualifiers: COPD type: emphysema Emphysema type: panlobular Qualified Code(s): J43.1 - Panlobular emphysema (2) Malnutrition: Code(s): E46 - Unspecified protein-calorie malnutrition Qualifiers: Malnutrition type: protein-calorie malnutrition Protein-calorie malnutrition severity: moderate Qualified Code(s): E44.0 - Moderate protein- calorie malnutrition (3) EtOH dependence: Code(s): F10.20 - Alcohol dependence, uncomplicated Qualifiers: Substance use status: uncomplicated Qualified Code(s): F10.20 - Alcohol dependence, uncomplicated (4) Recurrent major depression: Code(s): F33.9 - Major depressive disorder, recurrent, unspecified Qualifiers: Active/Remission status: currently active Major depression episode severity: moderate Qualified Code(s): F33.1 - Major depressive disorder, recurrent, moderate (5) Nicotine dependence, cigarettes, uncomplicated: Comment: (Current smoker - onset 13yo, 1ppd x 45yrs, now1/2ppd - 40pyh) Code(s): F17.210 - Nicotine dependence, cigarettes, uncomplicated Plan Patient is 58-year-old female who is having difficulty gaining weight due to severe COPD Continued to smoke but ready to quit. Patient says that tomorrow is her mother's birthday and she is going to stop smoking She is currently smoking 8 cigarettes daily. Since early this month patient was able to gain 8 oz. She suffers from severe depression but do not want to see a therapist or psychiatrist She met with our behavior health coordinator again today. Coding Level of Care Code Est Pt Level 3 (37072) Diagnoses Panlobular emphysema J43.1 COPD type: emphysema Emphysema type: panlobular Moderate protein-calorie malnutrition E44.0 Malnutrition type: protein-calorie malnutrition Protein-calorie malnutrition severity: moderate Uncomplicated alcohol dependence F10.20 Substance use status: uncomplicated Moderate episode of recurrent major depressive disorder F33.1 Active/Remission status: currently active Major depression episode severity: moderate Nicotine dependence, cigarettes, uncomplicated F17.210
== END 2023-10-17 12:11 | disposition home or self-care (01) ==
LOC: HO.HMGC 11:13
PROVIDERS: PCP Internal Medicine; Visit Provider Internal Medicine
DX: J43.1 Panlobular emphysema (principal); E44.0 Moderate protein-calorie malnutrition; F10.20 Alcohol dependence, uncomplicated; F33.1 Major depressive disorder, recurrent, moderate; F17.210 Nicotine dependence, cigarettes, uncomplicated
CPT/HCPCS: 99213

== ENCOUNTER 2023-11-14 11:08 | Outpatient (AMB) | payer MEDICARE, SELFPAY ==
--- NOTE | 2023-11-14 11:33 | AM.OFFWIN_ITS ---
Intake Vital Signs 11/14/23 11:37 Height 5 ft 3 in Weight 84 lb BMI 14.9 BP 120/70 Blood Pressure Location Lt brachial Position Sitting Pulse 85 Pulse Source Pulse Oximeter Temp 98.1 F Temp Source Temporal Artery Scan Pulse Oximetry (%) 97 Oxygen Delivery Method Room Air Intake Visit Reasons: EP, cyst on buttocks (lobby) Intake Note: pt is here today for cyst on buttocks started 1year Patient Tobacco Use Status: Current everyday Tobacco user Allergies No Known Allergies Allergy (Verified 11/14/23 11:39) Do you need a note to return to daycare/school/sports/work: No HPI HPI Comments History of Present Illness Details This is a 58-year-old female with a past medical history of COPD not currently oxygen dependent presenting for evaluation of anal itching that she has had over the past 1 year. Patient states that she believes that she has a lesion adjacent to her anus that has been itchy over the past 3 days. Patient denies any pain or discharge from this lesion. She has not used any [id number] medication for treatment of her symptoms. Patient denies having any diarrhea, constipation or fecal incontinence. [facility] Medical History Smoker Anorexia nervosa Underweight Nicotine dependence, cigarettes, uncomplicated Urinary urgency Eczema Colonoscopy refused Mammogram declined Surgical History History of cervical biopsy History of tonsillectomy History of surgery on arm Family History Father Family history unknown Mother No problems noted. Sister No problems noted. Social History Housing: House Alcohol intake: current Alcohol intake frequency: 0-2 drinks per day Patient Tobacco Use Status: Current everyday Tobacco user Tobacco use type: Cigarette Cigarettes Per Day: 15 Years Smoked: onset 13yo, 1ppd x 45yrs, now1/2ppd - 40pyh e-Cigarette/Vaping Use: Never Used Substance Use Type: Marijuana Current occupational status: disabled Sexual orientation: Straight/Heterosexual Gender identity: Female Cognitive needs: No Hearing needs: No Vision needs: No Physical Exam Vital Signs: Last Vital Signs Temp 98.1 F 11/14/23 11:37 Pulse 85 11/14/23 11:37 BP 120/70 11/14/23 11:37 Pulse Ox 97 11/14/23 11:37 Oxygen Delivery Method Room Air 11/14/23 11:37 BMI result Body Mass Index 14.9 Const General: cooperative, comfortable and well developed Nutritional Appearance: thin and underweight Orientation/consciousness: patient oriented x3 Limitations: no limitations GI Rectal Exam - Female: deferred, visual inspection normal, normal sphincter tone, No External hemorrhoid(s) present, Lesions present (GI) (mild erythematous [id number] lesion that is non.tender 10 o'clock on the anus), No Anal fissure(s) present, No tenderness and Anal wink reflex intact Neuro General: patient oriented x3 Psych Appearance: grossly normal Mental Status: mental status grossly normal Insight: Good insight present (Psych) Judgement: Good judgement present (Psych) Assessment & Plan Assessment & Plan (1) Anal itching: Comment: There is no evidence of a perianal abscess or hemorrhoid on examination Code(s): L29.0 - Pruritus ani Plan: Hydrocortisone OTC twice daily for the next 10 days. Patient to return for any evolving lesions, pain or abscess formation. Coding Level of Care Code Est Pt Level 3 (91271) Diagnoses Anal itching L29.0 Time Spent (min) 20
[2023-11-14 11:37] VITALS: BP 120/70; PULSE 85; TEMP 36.7; O2SAT 97; BMI 14.9
== END 2023-11-14 12:22 | disposition home or self-care (01) ==
PROVIDERS: PCP Internal Medicine; Visit Provider Physician Assistant
DX: L29.0 Pruritus ani (principal)
CPT/HCPCS: 99213

== ENCOUNTER 2023-11-22 13:03 | Outpatient (AMB) | payer MEDICARE, SELFPAY ==
[2023-11-22 13:06] VITALS: BP 112/70; PULSE 80; TEMP 36.9; O2SAT 95; BMI 14.5
--- NOTE | 2023-11-22 13:06 | MHC.OFFWIV ---
Intake Vital Signs 11/22/23 13:06 Height 5 ft 3 in Weight 82 lb BMI 14.5 BP 112/70 Blood Pressure Location Lt brachial Position Sitting Pulse 80 Pulse Source Pulse Oximeter Temp 98.4 F Temp Source Temporal Artery Scan Pulse Oximetry (%) 95 Oxygen Delivery Method Room Air Intake Visit Reasons: EP LT ear/Blood Intake Note: pt is here today for lft ear blood started Patient Tobacco Use Status: Current everyday Tobacco user Allergies No Known Allergies Allergy (Verified 11/22/23 13:06) Do you need a note to return to daycare/school/sports/work: No HPI EP LT ear/Blood HPI Details 58 year old female patient presents today with an itchy left ear canal which has been flaky and bleeding the past few days per patient. Denies any ear pain. States she is scratching it with her nails a lot. Denies any other sick symptoms. [facility] Medical History Smoker Anorexia nervosa Underweight Nicotine dependence, cigarettes, uncomplicated Urinary urgency Eczema Colonoscopy refused Mammogram declined Surgical History History of cervical biopsy History of tonsillectomy History of surgery on arm Family History Father Family history unknown Mother No problems noted. Sister No problems noted. Social History Housing: House Alcohol intake: current Alcohol intake frequency: 0-2 drinks per day Patient Tobacco Use Status: Current everyday Tobacco user Tobacco use type: Cigarette Cigarettes Per Day: 15 Years Smoked: onset 13yo, 1ppd x 45yrs, now1/2ppd - 40pyh e-Cigarette/Vaping Use: Never Used Substance Use Type: Marijuana Current occupational status: disabled Sexual orientation: Straight/Heterosexual Gender identity: Female Cognitive needs: No Hearing needs: No Vision needs: No Review of Systems Const All systems reviewed & are unremarkable except as noted in HPI and below Physical Exam Vital Signs: Last Vital Signs Temp 98.4 F 11/22/23 13:06 Pulse 80 11/22/23 13:06 BP 112/70 11/22/23 13:06 Pulse Ox 91 L 11/22/23 13:06 Oxygen Delivery Method Room Air 11/22/23 13:06 BMI result Body Mass Index 14.5 Const General: cooperative and no acute distress Nutritional Appearance: thin and underweight HEENT Head: Yes normal to inspection Ears: hearing grossly normal bilaterally, TM's normal bilaterally and Abnormal EAC present (scab in EAC) erythema (mild) on the left and otic discharge clear (dried/flaky) on the left Neck Neck: Yes no lymphadenopathy Resp Effort & Inspection: normal respiratory effort and able to speak in complete sentences Extrem General: Yes no clubbing, cyanosis or edema Psych Appearance: grossly normal Assessment & Plan Assessment & Plan (1) Otitis externa: Code(s): H60.90 - Unspecified otitis externa, unspecified ear Qualifiers: Otitis externa type: swimmer's ear Chronicity: acute Laterality: left Qualified Code(s): H60.332 - Swimmer's ear, left ear Plan: Acetic acid/hydrocortisone combo drops prescribed. Discussed importance of hand hygiene and trying to avoid scratching ear canal with her fingernails. May return to the clinic if she does not improve with treatment. Medications: New hydrocortisone-acetic acid 1-2 % 4 drps otic (ear) left TID 7 days 10 mL 0RF H60.90 - Unspecified otitis externa, unspecified ear Coding Level of Care Code Est Pt Level 3 (20733) Diagnoses Acute swimmer's ear of left side H60.332 Otitis externa type: swimmer's ear Chronicity: acute Laterality: left
== END 2023-11-22 13:41 | disposition home or self-care (01) ==
PROVIDERS: PCP Internal Medicine; Visit Provider Nurse Practitioner Family
DX: H60.332 Swimmer's ear, left ear (principal)
CPT/HCPCS: 99213

== ENCOUNTER 2023-11-30 14:59 | Outpatient (AMB) | payer MEDICARE, SELFPAY ==
--- NOTE | 2023-11-30 15:02 | AM.OFFWIN_ITS ---
Intake Vital Signs 11/30/23 15:06 Height 5 ft 3 in BP 110/68 Blood Pressure Location Rt brachial Position Sitting Pulse 91 Pulse Source Pulse Oximeter Pulse Oximetry (%) 100 Oxygen Delivery Method Room Air Intake Visit Reasons: EST/weakness/ weight loss/ and SOB (lobby) Patient Tobacco Use Status: Current everyday Tobacco user Allergies No Known Allergies Allergy (Verified 11/22/23 13:06) HPI HPI Comments History of Present Illness Details This is a 58-year-old female with past medical history significant for COPD/emphysema, alcohol dependence, tobacco dependence, anorexia nervosa, malnutrition who presented to the walk-in clinic today for weight loss. Patient states she has lost 40 lb over the past 1 year. She states that she is eating more than ever but then she explains that she usually has a banana and a protein shake for breakfast followed by either nothing or a subway conductor cupcake and a Pepsi for lunch followed by some sort of pre-made meal such as chicken susi, hamburger helper, or chicken pot pie for dinner. She states she really only eats dinner because she doesn't want to drink alcohol on an empty stomach. She reports chronic dyspnea on exertion that has been worsening but she is not currently oxygen-dependent. [facility] Medical History Smoker Anorexia nervosa Underweight Nicotine dependence, cigarettes, uncomplicated Urinary urgency Eczema Colonoscopy refused Mammogram declined Surgical History History of cervical biopsy History of tonsillectomy History of surgery on arm Family History Father Family history unknown Mother No problems noted. Sister No problems noted. Social History Housing: House Alcohol intake: current Alcohol intake frequency: 0-2 drinks per day Patient Tobacco Use Status: Current everyday Tobacco user Tobacco use type: Cigarette Cigarettes Per Day: 15 Years Smoked: onset 13yo, 1ppd x 45yrs, now1/2ppd - 40pyh e-Cigarette/Vaping Use: Never Used Substance Use Type: Marijuana Current occupational status: disabled Sexual orientation: Straight/Heterosexual Gender identity: Female Cognitive needs: No Hearing needs: No Vision needs: No Review of Systems Const All systems reviewed & are unremarkable except as noted in HPI and below Reports no additional complaints Eyes Reports no additional complaints ENT Reports no additional complaints Card Reports no additional complaints Resp Reports no additional complaints GI Reports no additional complaints Reports no additional complaints Musc Reports no additional complaints Skin/Breast Reports system reviewed and no additional complaints, except as documented Neuro Reports no additional complaints Psych Reports no additional complaints Endo Reports no additional complaints Bipin/Lymph Reports no additional complaints Aller/Immun Reports no additional complaints Physical Exam Vital Signs: Last Vital Signs Pulse 91 11/30/23 15:06 BP 110/68 11/30/23 15:06 Pulse Ox 100 11/30/23 15:06 Oxygen Delivery Method Room Air 11/30/23 15:06 Const Other: Vital signs reviewed. Intelligence Research Specialist, Jonas Novoa MA, was present during exam of any sensitive area. Constitutional: Patient is severely malnourished with temporal muscle wasting and muscle wasting throughout her body. She is chronically ill-appearing. Patient smells of cigarette smoke and alcohol. HEENT: Temporal muscle wasting. Dry mucous membranes. Skin: Warm and dry. No rashes or lesions noted. Neck: Full and painless range of motion. No cervical lymphadenopathy. Cardio: Regular rate and rhythm. No murmurs, gallops, or rubs. No lower extremity edema. No JVD. Pulmonary: No respiratory distress. No accessory muscle usage. Scattered rhonchi throughout. Gastrointestinal: Soft, non-tender, and non-distended in all 4 quadrants. Normoactive bowel sounds in all 4 quadrants. She has what appears to be a skin tag adjacent to her anus without evidence for anal abscess. Musculoskeletal: Normal range of motion in joints throughout the body. No defor mity or other signs of injury. Neuro: Alert and oriented x4. Cranial nerves 2-12 grossly intact. No focal deficits appreciated. Assessment & Plan Assessment & Plan (1) Failure to thrive in adult: Code(s): R62.7 - Adult failure to thrive Plan: This is a 58-year-old chronically ill female who presented to the walk-in clinic today with the complaint of weight loss over the past 1 year. Patient states she has lost 40 lb in 1 year. On physical examination, the patient has severe muscle wasting throughout her body and she is severely malnourished. The patient is eating just over 1000 calories a day all of which include processed meals and simple carbs other than a banana and ensure supplement in the morning. I explained to the patient that patient with emphysema require high caloric intake and high protein intake due to their labored breathing and increased energy requirements. She doesn't seem to comprehend what is said to her as she repeatedly asks the same questions. I explained in detail to the patient she needs to increase her protein and calorie intake. I explained to the patient that this appears to be a chronic issue and there is not much to be done from the walk-in clinic. I encouraged the patient to follow up with her PCP for continued management. The patient does appear to have some underlying psychiatric condition so I asked the community health worker to speak with the patient but she declined services. Patient was extremely appreciative of our help today. She was discharged back home with instructions to increase her caloric and protein intake and to follow up with her PCP for further management. Coding Level of Care Code Est Pt Level 3 (70766) Diagnoses Failure to thrive in adult R62.7
[2023-11-30 15:06] VITALS: BP 110/68; PULSE 91; O2SAT 100
== END 2023-11-30 16:13 | disposition home or self-care (01) ==
PROVIDERS: PCP Internal Medicine; Visit Provider Physician Assistant Medical
DX: R62.7 Adult failure to thrive (principal)
CPT/HCPCS: 99213

== ENCOUNTER 2023-12-11 09:48 | Outpatient (AMB) | payer MEDICARE, SELFPAY ==
[2023-12-11 09:52] VITALS: BP 100/70; PULSE 88; O2SAT 95
--- NOTE | 2023-12-11 09:52 | A.OFFPC_ITS ---
Vital Signs 3 12/11/23 09:52 Weight 84 lb 8 oz BP 100/70 Blood Pressure Location Lt brachial Position Sitting Pulse 88 Pulse Source Pulse Oximeter Pulse Oximetry (%) 95 Oxygen Delivery Method Room Air Intake Visit Reasons: left ear pain Allergies No Known Allergies Allergy (Verified 12/11/23 09:55) Tobacco use date assessed: 12/11/23 Dental Screening Dental Screen Date: 12/11/23 Did you have a dental visit in the last 12 months?: Yes Did you have a dental problem in the last 6 months where you did not have access to dental care?: No Was dental information given to patient?: Patient has dentist HPI left ear pain 2 HPI0 Details Patient is 58-year-old female who has started to have memory issues Came in today to be evaluated for left ear itching scabbing along with some discomfort On examination patient has developed eczema that she is scratching She was seen for this problem November 22 and was given hydrocortisone acetic acid ear drops which patient at home but she never used I have encouraged her to start using those. And stop scratching. She already have appointment Neurology set up for December Medical History Smoker Anorexia nervosa Underweight Nicotine dependence, cigarettes, uncomplicated Urinary urgency Eczema Colonoscopy refused Mammogram declined Surgical History History of cervical biopsy History of tonsillectomy History of surgery on arm Family History Father Family history unknown Mother No problems noted. Sister No problems noted. Social History Housing: House Alcohol intake: current Alcohol intake frequency: 0-2 drinks per day Patient Tobacco Use Status: Current everyday Tobacco user Tobacco use type: Cigarette Cigarettes Per Day: 15 Years Smoked: onset 13yo, 1ppd x 45yrs, now1/2ppd - 40pyh Packs per year/per ci.00 e-Cigarette/Vaping Use: Never Used Substance Use Type: Marijuana Current occupational status: disabled Sexual orientation: Straight/Heterosexual Gender identity: Female Cognitive needs: No Hearing needs: No Vision needs: No Questionnaire Thrive Questionnaire Date Thrive assessed: 08/03/21 AUDIT C Alcohol Use Questionnaire (AUDIT-C) 1. How often do you have a drink containing alcohol?: Never 3. How often do you have six or more drinks on one occasion?: Never Total Score: 0 Score Reviewed/Action Taken: Yes STEVE-7 AMB Questionnaire STEVE-7 Date STEVE - 7 assessed: 09/28/23 Source: Developed by Drs. Ganga Bauer, Brooklyn Benedict, Dionte Puente and colleagues, with an educational albert from [employer]. Review of Systems Const Denies chills and Denies fever(s) ENT Denies epistaxis and Denies nasal discharge Card Denies chest pain Resp Denies chest congestion and Denies hemoptysis GI Denies diarrhea and Denies nausea Skin/Breast Denies rash Neuro Reports no additional complaints Psych Reports no additional complaints Endo Reports no additional complaints Physical exam (Primary Care) Vital Signs: Last Vital Signs Pulse 88 12/11/23 09:52 BP 100/70 12/11/23 09:52 Pulse Ox 95 12/11/23 09:52 Oxygen Delivery Method Room Air 12/11/23 09:52 Tobacco/Smoking Status: Tobacco use Status Tobacco use date assessed 12/11/23 12/11/23 09:56 Patient Tobacco Use Status Current everyday Tobacco 12/11/23 09:56 Tobacco use type Cigarette 12/11/23 09:56 e-Cigarette/Vaping Use Never Used 12/11/23 09:56 Thrive Assessment: Date of Thrive Assessment Date Thrive assessed 08/03/21 12/11/23 09:56 Const General: cooperative, comfortable and no acute distress Orientation/consciousness: patient oriented x3 [facility] Head: Yes normocephalic Head images: 2 1. Slight inflammation with scratch lares Neck Neck: Yes supple Resp Effort & Inspection: normal respiratory effort, no cough and no stridor Skin General skin exam: turgor normal Neuro General: patient oriented x3, tone normal and moves all extremities Extrem Right lower extremity: no edema Left lower extremity: no edema Assessment and Plan Assessment & Plan (1) Eczema of left external ear: Code(s): H60.542 - Acute eczematoid otitis externa, left ear Plan Patient is 58-year-old female who has started to have memory issues Came in today to be evaluated for left ear itching scabbing along with some discomfort On examination patient has developed eczema that she is scratching She was seen for this problem November 22 and was given hydrocortisone acetic acid ear drops which patient at home but she never used I have encouraged her to start using those. And stop scratching. She already have appointment Neurology set up for December Coding Level of Care Code Est Pt Level 3 (64501) Diagnoses Eczema of left external ear H60.542
== END 2023-12-11 11:12 | disposition home or self-care (01) ==
PROVIDERS: PCP Internal Medicine; Visit Provider Internal Medicine
DX: H60.542 Acute eczematoid otitis externa, left ear (principal)
CPT/HCPCS: 99213

== ENCOUNTER 2023-12-21 11:06 | Outpatient (AMB) | payer MEDICARE, SELFPAY ==
[2023-12-21 11:08] VITALS: BP 116/68; PULSE 82; O2SAT 98; BMI 15.1
--- NOTE | 2023-12-21 11:08 | A.OFFPC_ITS ---
Vital Signs 12/21/23 11:08 Height 5 ft 3 in Weight 85 lb BMI 15.1 BP 116/68 Blood Pressure Location Rt brachial Position Sitting Pulse 82 Pulse Source Pulse Oximeter Pulse Oximetry (%) 98 Oxygen Delivery Method Room Air Intake Visit Reasons: PE Allergies No Known Allergies Allergy (Verified 12/21/23 11:08) Medication List - Last Reconciled 12/21/23 by Vito Beal MD Advair Diskus 500-50 mcg/dose (fluticasone propion-salmeterol) 1 inh inhalation Q12H 30 days NS albuterol sulfate 90 mcg/actuation 2 puffs inhalation Q4-6H PRN 30 days doxylamine succinate (Unisom (doxylamine)) 25 mg PO BEDTIME PRN fluticasone propion-salmeterol 250-50 mcg/dose (Advair Diskus) 1 inh inhalation BID 30 days fluticasone propionate 50 mcg/actuation (Allergy Relief (fluticasone)) 1 spray intranasal DAILY 30 days hydrocortisone-acetic acid 1-2 % 4 drps otic (ear) left TID 7 days quetiapine (Seroquel) 25 mg PO BEDTIME 90 days sertraline 50 mg PO DAILY tiotropium bromide (Spiriva with HandiHaler) 1 cap inhalation DAILY 30 days valacyclovir 500 mg PO ONCE 90 days Tobacco use date assessed: 12/21/23 Dental Screening Dental Screen Date: 12/21/23 Did you have a dental visit in the last 12 months?: No Did you have a dental problem in the last 6 months where you did not have access to dental care?: No Was dental information given to patient?: No HPI PE HPI Details Patient is 58-year-old female came in today for physical exam Patient have severe COPD and continued to smoke She is seeing Dr. Erwin as her wound specialist Mammogram is due in December She has appointment with OBGYN in February, patient continued to have cream vaginal discharge, we have taken bacterial vaginosis test today after the report I will treat her Today she is here with her daughter Cuca her phone number is [phone], daughter is her primary summer child caregiver and have Healthcare proxy for the patient She would like to be contacted if any time patient need anything done as patient herself does not remember much They have neurology appointment coming up next month Today she agreed to go to gastroenterology for colon screening and for the evaluation of anorexia nervosa, patient was seen in 2021 when she declined to do colonoscopy or further workup 9 referral placed Lab order placed to be done fasting On rectal examination patient has 1 small hemorrhoid which is not thrombosed FOR[facility]LY [facility], [facility] Medical History Smoker Anorexia nervosa Underweight Nicotine dependence, cigarettes, uncomplicated Urinary urgency Eczema Colonoscopy refused Mammogram declined Surgical History History of cervical biopsy History of tonsillectomy History of surgery on arm Family History Father Family history unknown Mother No problems noted. Sister No problems noted. Social History Housing: House Alcohol intake: current Alcohol intake frequency: 0-2 drinks per day Patient Tobacco Use Status: Current everyday Tobacco user Tobacco use type: Cigarette Cigarettes Per Day: 15 Years Smoked: onset 13yo, 1ppd x 45yrs, now1/2ppd - 40pyh e-Cigarette/Vaping Use: Never Used Substance Use Type: Marijuana Current occupational status: disabled Sexual orientation: Straight/Heterosexual Gender identity: Female Cognitive needs: No Hearing needs: No Vision needs: No Questionnaire Thrive Questionnaire Date Thrive assessed: 08/03/21 AUDIT C Alcohol Use Questionnaire (AUDIT-C) 1. How often do you have a drink containing alcohol?: Never 3. How often do you have six or more drinks on one occasion?: Never Total Score: 0 Score Reviewed/Action Taken: Yes STEVE-7 AMB Questionnaire STEVE-7 Date STEVE - 7 assessed: 09/28/23 Source: Developed by Drs. Ganga Bauer, Brooklyn Benedict, Dionte Puente and colleagues, with an educational albert from [employer]. Review of Systems Const Denies chills, Denies fever(s) and Denies headache(s) Eyes Denies blurry vision ENT Denies headache(s), Denies nasal obstruction, Denies odynophagia and Denies sinus pain Card Denies chest pain at rest and Denies chest pain with activity Resp Denies hemoptysis GI Denies diarrhea, Denies odynophagia, Denies vomiting and Denies hematemesis Reports as per HPI Musc Denies abnormal gait Skin/Breast Reports as per HPI Neuro Denies Neuro-related abnormal movements, Denies Abnormal speech present, Denies abnormal gait, Denies headache(s) and Denies Sensory deficit (Neuro) Endo Reports as per HPI Bipin/Lymph Reports as per HPI Aller/Immun Reports as per HPI Physical exam (Primary Care) Vital Signs: Last Vital Signs Pulse 82 12/21/23 11:08 BP 116/68 12/21/23 11:08 Pulse Ox 98 12/21/23 11:08 Oxygen Delivery Method Room Air 12/21/23 11:08 BMI result Body Mass Index 15.1 Tobacco/Smoking Status: Tobacco use Status Tobacco use date assessed 12/21/23 12/21/23 11:17 Patient Tobacco Use Status Current everyday Tobacco 12/21/23 11:17 Tobacco use type Cigarette 12/21/23 11:17 e-Cigarette/Vaping Use Never Used 12/21/23 11:17 Thrive Assessment: Date of Thrive Assessment Date Thrive assessed 08/03/21 12/21/23 11:17 Const General: cooperative, comfortable and no acute distress Orientation/consciousness: patient oriented x3 HENMT Other: Left ear eczema much improved Head: Yes normocephalic and Yes atraumatic Eyes General: appearance normal, both eyes and all related structures Pupils: Equal, round and reactive pupils present EOM: EOMs intact bilaterally Neck Neck: Yes supple and No lymphadenopathy Thyroid: Thyroid normal Lymphatic: no lymphadenopathy noted Chest Breast/axilla palpation: normal palpation of the breasts Resp Other: Wheezing bilateral, able to speak in full sentences Effort & Inspection: normal respiratory effort and able to speak in complete sentences Cardio Heart sounds: S1 normal heart sound present and S2 normal heart sound present GI Palpation (GI): Soft to palpation and nontender Auscultation: normal bowel sounds Other: Once small hemorrhoid on rectal examination no rash General: Yes no CVA tenderness Back/Spine/Pelvis Back: no CVA tenderness Skin General skin exam: elasticity normal and turgor normal Neuro General: patient oriented x3 and gait normal Cranial nerves: Yes Equal, round and reactive pupils present Speech: No Abnormal speech present Sensory Exam: No Sensory deficit (Neuro) Extrem General: Yes normal exam except as noted and No edema Assessment and Plan Assessment & Plan (1) Encounter for general adult medical examination with abnormal findings: Code(s): Z00.01 - Encounter for general adult medical examination with abnormal findings (2) Vaginal discharge: Code(s): N89.8 - Other specified noninflammatory disorders of vagina (3) Colon cancer screening: Code(s): Z12.11 - Encounter for screening for malignant neoplasm of colon (4) Hemorrhoid: Code(s): K64.9 - Unspecified hemorrhoids Qualifiers: Hemorrhoid type: unspecified Qualified Code(s): K64.9 - Unspecified hemorrhoids (5) Anorexia nervosa: Code(s): F50.00 - Anorexia nervosa, unspecified (6) Memory change: Code(s): R41.3 - Other amnesia (7) Eczema of left external ear: Code(s): H60.542 - Acute eczematoid otitis externa, left ear (8) Smoker: Comment: Patient still smoking about 1 pack of cigarettes a day. She say she is under lot of stress. It is hard for her to quit. She does have nicotine patches at home and would restart applying it daily. Patient is participating in annual lung screening program. Code(s): F17.200 - Nicotine dependence, unspecified, uncomplicated (9) EtOH dependence: Code(s): F10.20 - Alcohol dependence, uncomplicated Qualifiers: Substance use status: uncomplicated Qualified Code(s): F10.20 - Alcohol dependence, uncomplicated (10) Recurrent major depression: Code(s): F33.9 - Major depressive disorder, recurrent, unspecified Qualifiers: Active/Remission status: currently active Major depression episode severity: moderate Qualified Code(s): F33.1 - Major depressive disorder, recurrent, moderate (11) Malnutrition: Code(s): E46 - Unspecified protein-calorie malnutrition Qualifiers: Malnutrition type: protein-calorie malnutrition Protein-calorie malnutrition severity: moderate Qualified Code(s): E44.0 - Moderate protein- calorie malnutrition (12) Underweight: Comment: (BMI: 16.9 in 07/2020; BMI 15.7 in 06/2023) Code(s): R63.6 - Underweight (13) COPD (chronic obstructive pulmonary disease): Code(s): J44.9 - Chronic obstructive pulmonary disease, unspecified Qualifiers: COPD type: emphysema Emphysema type: panlobular Qualified Code(s): J43.1 - Panlobular emphysema (14) Shortness of breath: Code(s): R06.02 - Shortness of breath (15) Elevated amylase: Code(s): R74.8 - Abnormal levels of other serum enzymes (16) Bipolar disorder: Code(s): F31.9 - Bipolar disorder, unspecified Qualifiers: Active/Remission status: in partial remission Most recent bipolar episode type: depressed Qualified Code(s): F31.75 - Bipolar disorder, in partial remission, most recent episode depressed Plan Patient is 58-year-old female came in today for physical exam Patient have severe COPD and continued to smoke She is seeing Dr. Erwin as her wound specialist Mammogram is due in December She has appointment with OBGYN in February, patient continued to have cream vaginal discharge, we have taken bacterial vaginosis test today after the report I will treat her Today she is here with her daughter Cuca her phone number is [phone], daughter is her primary summer child caregiver and have Healthcare proxy for the patient She would like to be contacted if any time patient need anything done as patient herself does not remember much They have neurology appointment coming up next month Today she agreed to go to gastroenterology for colon screening and for the evaluation of anorexia nervosa, patient was seen in 2021 when she declined to do colonoscopy or further workup 9 referral placed Lab order placed to be done fasting On rectal examination patient has 1 small hemorrhoid which is not thrombosed Orders: Orders MM tomosynthesis screening BI Today Z12.31 - Encounter for screening mammogram for malignant neoplasm of breast Complete Blood Count Auto Diff Today E46 - Unspecified protein-calorie malnutrition, F10.20 - Alcohol dependence, uncomplicated, F17.200 - Nicotine dependence, unspecified, uncomplicated, F33.9 - Major depressive disorder, recu rrent, unspecified, H60.542 - Acute eczematoid otitis externa, left ear, J44.9 - Chronic obstructive pulmonary disease, unspecified, K64.9 - Unspecified hemorrhoids, N89.8 - Other specified noninflammatory disorders of vagina, R06.02 - Shortness of breath, R41.3 - Other amnesia, R63.6 - Underweight, R74.8 - Abnormal levels of other serum enzymes, Z00.01 - Encounter for general adult medical examination with abnormal findings Comprehensive Met. Panel Today E46 - Unspecified protein-calorie malnutrition, F10.20 - Alcohol dependence, uncomplicated, F17.200 - Nicotine dependence, unspecified, uncomplicated, F33.9 - Major depressive disorder, recurrent, unspecified, H60.542 - Acute eczematoid otitis externa, left ear, J44.9 - Chronic obstructive pulmonary disease, unspecified, K64.9 - Unspecified hemorrhoids, N89.8 - Other specified noninflammatory disorders of vagina, R06.02 - Shortness of breath, R41.3 - Other amnesia, R63.6 - Underweight, R74.8 - Abnormal levels of other serum enzymes, Z00.01 - Encounter for general adult medical examination with abnormal findings LDL Cholesterol Direct Today E46 - Unspecified protein-calorie malnutrition, F10.20 - Alcohol dependence, uncomplicated, F17.200 - Nicotine dependence, unspecified, uncomplicated, F33.9 - Major depressive disorder, recurrent, unspecified, H60.542 - Acute eczematoid otitis externa, left ear, J44.9 - Chronic obstructive pulmonary disease, unspecified, K64.9 - Unspecified hemorrhoids, N89.8 - Other specified noninflammatory disorders of vagina, R06.02 - Shortness of breath, R41.3 - Other amnesia, R63.6 - Underweight, R74.8 - Abnormal levels of other serum enzymes, Z00.01 - Encounter for general adult medical examination with abnormal findings TSH reflex Free T4 Today E46 - Unspecified protein-calorie malnutrition, F10.20 - Alcohol dependence, uncomplicated, F17.200 - Nicotine dependence, unspecified, uncomplicated, F33.9 - Major depressive disorder, recurrent, unspecified, H60.542 - Acute eczematoid otitis externa, left ear, J44.9 - Chronic obstructive pulmonary disease, unspecified, K64.9 - Unspecified hemorrhoids, N89.8 - Other specified noninflammatory disorders of vagina, R06.02 - Shortness of breath, R41.3 - Other amnesia, R63.6 - Underweight, R74.8 - Abnormal levels of other serum enzymes, Z00.01 - Encounter for general adult medical examination with abnormal findings Hemoglobin A1c Today E46 - Unspecified protein-calorie malnutrition, F10.20 - Alcohol dependence, uncomplicated, F17.200 - Nicotine dependence, unspecified, uncomplicated, F33.9 - Major depressive disorder, recurrent, unspecified, H60.542 - Acute eczematoid otitis externa, left ear, J44.9 - Chronic obstructive pulmonary disease, unspecified, K64.9 - Unspecified hemorrhoids, N89.8 - Other specified noninflammatory disorders of vagina, R06.02 - Shortness of breath, R41.3 - Other amnesia, R63.6 - Underweight, R74.8 - Abnormal levels of other serum enzymes, Z00.01 - Encounter for general adult medical examination with abnormal findings Vitamin D 25-OH (D2 and D3) Today E46 - Unspecified protein-calorie malnutrition, F10.20 - Alcohol dependence, uncomplicated, F17.200 - Nicotine dependence, unspecified, uncomplicated, F33.9 - Major depressive disorder, recurrent, unspecified, H60.542 - Acute eczematoid otitis externa, left ear, J44.9 - Chronic obstructive pulmonary disease, unspecified, K64.9 - Unspecified hemorrhoids, N89.8 - Other specified noninflammatory disorders of vagina, R06.02 - Shortness of breath, R41.3 - Other amnesia, R63.6 - Underweight, R74.8 - Abnormal levels of other serum enzymes, Z00.01 - Encounter for general adult medical examination with abnormal findings Hepatitis C Antibody Today E46 - Unspecified protein-calorie malnutrition, F10.20 - Alcohol dependence, uncomplicated, F17.200 - Nicotine dependence, unspecified, uncomplicated, F33.9 - Major depressive disorder, recurrent, unspecified, H60.542 - Acute eczematoid otitis externa, left ear, J44.9 - Chronic obstructive pulmonary disease, unspecified, K64.9 - Unspecified hemo rrhoids, N89.8 - Other specified noninflammatory disorders of vagina, R06.02 - Shortness of breath, R41.3 - Other amnesia, R63.6 - Underweight, R74.8 - Abnormal levels of other serum enzymes, Z00.01 - Encounter for general adult medical examination with abnormal findings Bacterial Vaginosis Panel Today N89.8 - Other specified noninflammatory disorders of vagina Vitamin B12 Today E46 - Unspecified protein-calorie malnutrition, F10.20 - Alcohol dependence, uncomplicated, F17.200 - Nicotine dependence, unspecified, uncomplicated, F33.9 - Major depressive disorder, recurrent, unspecified, H60.542 - Acute eczematoid otitis externa, left ear, J44.9 - Chronic obstructive pulmonary disease, unspecified, K64.9 - Unspecified hemorrhoids, N89.8 - Other specified noninflammatory disorders of vagina, R06.02 - Shortness of breath, R41.3 - Other amnesia, R63.6 - Underweight, R74.8 - Abnormal levels of other serum enzymes, Z00.01 - Encounter for general adult medical examination with abnormal findings Amylase Today F10.20 - Alcohol dependence, uncomplicated Referrals Gastroenterology Referral F50.00 - Anorexia nervosa, unspecified, K64.9 - Unspecified hemorrhoids, Z12.11 - Encounter for screening for malignant neoplasm of colon Medications: Changed From valacyclovir Take twice a day until cold sores have resolved. 1,000 mg PO BID 10 days 20 tabs 5RF cold sores B00.1 - Herpesviral vesicular dermatitis To valacyclovir 500 mg PO ONCE 90 tabs 3RF cold sores 90 days B00.1 - Herpesviral vesicular dermatitis From sertraline take 1/2 tablet by mouth first 3 days if tolerate take full tablet po qd 50 mg PO DAILY 90 tabs 0RF F33.9 - Major depressive disorder, recurrent, unspecified To sertraline 50 mg PO DAILY 90 tabs 1RF F33.9 - Major depressive disorder, recurrent, unspecified Refilled quetiapine (Seroquel) 25 mg PO BEDTIME 90 tabs 1RF 90 days Coding Level of Care Code Est Pt Prev Care 40-64y(92827) Diagnoses Encounter for general adult medical examination with abnormal findings Z00.01 Vaginal discharge N89.8 Colon cancer screening Z12.11 Hemorrhoids, unspecified hemorrhoid type K64.9 Hemorrhoid type: unspecified Anorexia nervosa F50.00 Memory change R41.3 Eczema of left external ear H60.542 Smoker F17.200 Uncomplicated alcohol dependence F10.20 Substance use status: uncomplicated Moderate episode of recurrent major depressive disorder F33.1 Active/Remission status: currently active Major depression episode severity: moderate Moderate protein-calorie malnutrition E44.0 Malnutrition type: protein-calorie malnutrition Protein-calorie malnutrition severity: moderate Underweight R63.6 Panlobular emphysema J43.1 COPD type: emphysema Emphysema type: panlobular Shortness of breath R06.02 Elevated amylase R74.8 Bipolar disorder, in partial remission, most recent episode depressed F31.75 Active/Remission status: in partial remission Most recent bipolar episode type: depressed
== END 2023-12-21 15:12 | disposition home or self-care (01) ==
PROVIDERS: Visit Provider Internal Medicine
DX: Z00.00 Encounter for general adult medical examination without abnormal findings (principal); F50.00 Anorexia nervosa, unspecified; F10.20 Alcohol dependence, uncomplicated; F33.1 Major depressive disorder, recurrent, moderate; E44.0 Moderate protein-calorie malnutrition; J43.1 Panlobular emphysema; F31.75 Bipolar disorder, in partial remission, most recent episode depressed; N89.8 Other specified noninflammatory disorders of vagina; Z12.11 Encounter for screening for malignant neoplasm of colon; K64.9 Unspecified hemorrhoids; R41.3 Other amnesia; H60.542 Acute eczematoid otitis externa, left ear
CPT/HCPCS: 99396

== ENCOUNTER 2023-12-21 12:56 | Outpatient (REF) | payer MEDICARE, SELFPAY ==
[2023-12-22 14:43] LABS: BV Int Neg Control Negative (Negative); BV Int Pos Control Positive (Positive)
== END 2023-12-21 12:57 | disposition home or self-care (01) ==
LOC: HO.LAB 12:56
PROVIDERS: Visit Provider Internal Medicine
DX: N89.8 Other specified noninflammatory disorders of vagina (principal)
CPT/HCPCS: 87480; 87510; 87660

== ENCOUNTER 2023-12-24 13:48 | Outpatient (AMB) | payer MEDICARE, SELFPAY ==
[2023-12-24 13:53] VITALS: BP 102/62; PULSE 78; O2SAT 92; BMI 14.4
--- NOTE | 2023-12-24 13:53 | MHC.OFFVIS ---
Intake Vital Signs 12/24/23 13:53 Height 5 ft 3 in Weight 81 lb 0.57 oz BMI 14.4 BP 102/62 Blood Pressure Location Rt brachial Position Sitting Pulse 78 Pulse Source Pulse Oximeter Pulse Oximetry (%) 92 Oxygen Delivery Method Room Air Intake Visit Reasons: COPD Intake Note: pt is here for follow up and states some short of breath with stairs or walking too fast, some cough with phlegm, Pattern [employer] Required: No Allergies No Known Allergies Allergy (Verified 12/24/23 14:17) Medication List - Last Reconciled 12/24/23 by Chacho Erwin MD albuterol sulfate 90 mcg/actuation 2 puffs inhalation Q4-6H PRN 30 days doxylamine succinate (Unisom (doxylamine)) 25 mg PO BEDTIME PRN fluticasone propion-salmeterol 250-50 mcg/dose (Advair Diskus) 1 inh inhalation BID 30 days fluticasone propionate 50 mcg/actuation (Allergy Relief (fluticasone)) 1 spray intranasal DAILY 30 days hydrocortisone-acetic acid 1-2 % 4 drps otic (ear) left TID 7 days metronidazole 0.75%(37.5mg/5gram) 1 appful vaginal DAILY 5 days quetiapine (Seroquel) 25 mg PO BEDTIME 90 days sertraline 50 mg PO DAILY tiotropium bromide (Spiriva with HandiHaler) 1 cap inhalation DAILY 30 days valacyclovir 500 mg PO ONCE 90 days Do you need a note to return to daycare/school/sports/work: No HPI COPD HPI Details THIS 58 YEARS OLD FEMALE A LONG-TIME, SMOKER WHO DOES HAVE ADVANCED CHRONIC OBSTRUCTIVE PULMONARY DISEASE, COMES FOR FOLLOW-UP AFTER. 4 MONTHS CONTINUES TO HAVE INTERMITTENT COUGH AND GETS SHORT OF BREATH ON MINIMAL EXERTION, EXPECTED. SHE IS STILL SMOKING BUT CLAIMS THAT SHE HAS CUT DOWN TO 10 CIGARETTES A DAY . WE HAD A LENGTHY TALK ABOUT SMOKING. SHE HAS SOME MISUNDERSTANDING ABOUT THE MEDICATIONS AND WE HAD TO REVIEW THE WHOLE LIST. SHE IS PARTICIPATING IN ANNUAL LUNG SCREENING PROGRAM. [facility] Medical History Smoker Anorexia nervosa Underweight Nicotine dependence, cigarettes, uncomplicated Urinary urgency Eczema Colonoscopy refused Mammogram declined Surgical History History of cervical biopsy History of tonsillectomy History of surgery on arm Family History Father Family history unknown Mother No problems noted. Sister No problems noted. Social History Housing: House Alcohol intake: current Alcohol intake frequency: 0-2 drinks per day Patient Tobacco Use Status: Current everyday Tobacco user Tobacco use type: Cigarette Cigarettes Per Day: 10 Years Smoked: onset 13yo, 1ppd x 45yrs, now1/2ppd - 40pyh e-Cigarette/Vaping Use: Never Used Substance Use Type: Marijuana Current occupational status: disabled Sexual orientation: Straight/Heterosexual Gender identity: Female Cognitive needs: No Hearing needs: No Vision needs: No Review of Systems Const All systems reviewed & are unremarkable except as noted in HPI and below Eyes Reports no additional complaints ENT Reports nasal congestion (OFF AND ON) Card Denies irregular heart rhythm and Denies leg edema Resp Reports as per HPI GI Reports other (LACK OF APPETITE, AND POOR DIETARY INTAKE.) Reports nocturia Musc Reports other (GENERAL MUSCLE WEAKNESS) Skin/Breast Reports system reviewed and no additional complaints, except as documented Neuro Reports no additional complaints Psych Reports anxiety and Reports depression Physical Exam Vital Signs: Last Vital Signs Pulse 78 12/24/23 13:53 BP 102/62 12/24/23 13:53 Pulse Ox 92 12/24/23 13:53 Oxygen Delivery Method Room Air 12/24/23 13:53 BMI result Body Mass Index 14.4 PATIENT IS DEFINITELY UNDER NOURISHED, OF A THIN BUILD, CHRONICALLY SICK-LOOKING. Const General: healthy appearing, comfortable, no acute distress, alert and awake Orientation/consciousness: patient oriented x3 HEENT Head: Yes normal to inspection General nose exam: No nasal polyps present, No nasal discharge present and Other nasal findings present (ONLY MILD NASAL CONGESTION) Face and sinus: Yes sinuses nontender Mouth: oropharynx normal Throat: Yes posterior oropharynx normal Eyes General: appearance normal, both eyes and all related structures Neck Neck: Yes normal visual inspection, Yes no lymphadenopathy, Yes trachea midline and Yes no JVD Thyroid: Thyroid normal Chest Chest palpation & inspection: normal inspection of the chest, normal palpation of entire chest wall and no tenderness Resp Other: PERCUSSION NOTE IS HYPER-RESONANT, BREATH SOUNDS ARE VERY DISTANT ON BOTH SIDES WITH. PROLONGED EXPIRATORY PHASE NO WHEEZES RHONCHI OR CREPITATIONS. ARE HEARD Cardio Palpation: normal PMI Rate: regular rate Rhythm: regular rhythm Heart sounds: no gallops and no murmurs Peripheral pulses: Peripheral pulses 2+ throughout GI Palpation (GI): Soft to palpation, nontender, No hepatosplenomegaly present and no masses Auscultation: normal bowel sounds Back/Spine/Pelvis Thoracic/Lumbar Spine: thoracic and lumbar spine normal to inspection Skin General skin exam: no rashes or lesions noted Neuro General: patient oriented x3 and no focal motor deficits Cranial nerves: Yes CN's II-XII intact bilaterally Extrem General: Yes normal to inspection, Yes no clubbing, cyanosis or edema and Yes no calf tenderness Psych Speech and movement: Normal speech and movement present Assessment & Plan Assessment & Plan (1) Smoker: Comment: Patient still smoking about 1 pack of cigarettes a day. She say she is under lot of stress. It is hard for her to quit. Code(s): F17.200 - Nicotine dependence, unspecified, uncomplicated Plan: Discussed about. Smoking cessation She does have nicotine patches as well as. Lozenges but It has not helped. She is trying to cut down slowly, . And is down to 10 cigarettes a day (2) COPD (chronic obstructive pulmonary disease): Comment: Patient has advanced chronic obstructive pulmonary disease already, basically it is staying stable. Code(s): J44.9 - Chronic obstructive pulmonary disease, unspecified Qualifiers: COPD type: emphysema Emphysema type: panlobular Qualified Code(s): J43.1 - Panlobular emphysema Plan: Wixela 250-51 inhalation b.i.d.. Spiriva HandiHaler. 1 inhalation daily Ventolin 2 puffs. Q 4-6 hours p.r.n. (3) Shortness of breath: Comment: Complains of getting short of breath on minimal exertion and I explained to that this is due to advanced chronic obstructive pulmonary disease. Her O2 sat is still in 90s and she would not qualify for oxygen. Code(s): R06.02 - Shortness of breath Plan: as above Medications: New fluticasone propion-salmeterol 250-50 mcg/dose (Wixela Inhub) 1 inh inhalation BID 60 ea 5RF copd 30 days Coding Level of Care Code Est Pt Level 3 (74429) Diagnoses Smoker F17.200 Panlobular emphysema J43.1 COPD type: emphysema Emphysema type: panlobular Shortness of breath R06.02
== END 2023-12-24 14:25 | disposition home or self-care (01) ==
PROVIDERS: PCP Internal Medicine; Visit Provider Internal Medicine
DX: F17.200 Nicotine dependence, unspecified, uncomplicated (principal); J43.1 Panlobular emphysema; R06.02 Shortness of breath
CPT/HCPCS: 99213

== ENCOUNTER → 2023-12-24 13:48 | Outpatient (BNVA) | payer MEDICARE, SELFPAY | PROVIDERS: PCP Internal Medicine; Visit Provider Internal Medicine | DX: J43.1 Panlobular emphysema (principal); R06.02 Shortness of breath; F17.210 Nicotine dependence, cigarettes, uncomplicated | CPT/HCPCS: 99212 ==

== ENCOUNTER 2023-12-26 13:02 | Outpatient (AMB) | payer MEDICARE, SELFPAY ==
[2023-12-26 13:15] VITALS: BP 112/60; PULSE 74; TEMP 36.9; O2SAT 96; BMI 14.9
--- NOTE | 2023-12-26 13:15 | AM.OFFWIN_ITS ---
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 Pt also c/o dry itchy skin right nostril. She has been picking on it and using ear drop that she was given for Ear infection. [facility] Medical History Smoker Anorexia nervosa Underweight Nicotine dependence, cigarettes, uncomplicated Urinary urgency Eczema Colonoscopy refused Mammogram declined Surgical History History of cervical biopsy History of tonsillectomy History of surgery on arm Family History Father Family history unknown Mother No problems noted. Sister No problems noted. Social History Housing: House Alcohol intake: current Alcohol intake frequency: 0-2 drinks per day Patient Tobacco Use Status: Current everyday Tobacco user Tobacco use type: Cigarette Cigarettes Per Day: 10 Years Smoked: onset 13yo, 1ppd x 45yrs, now1/2ppd - 40pyh e-Cigarette/Vaping Use: Never Used Substance Use Type: Marijuana Current occupational status: disabled Sexual orientation: Straight/Heterosexual Gender identity: Female Cognitive needs: No Hearing needs: No Vision needs: No Review of Systems Const All systems reviewed & are unremarkable except as noted in HPI and below Physical Exam Vital Signs: Last Vital Signs Temp 98.5 F 12/26/23 13:15 Pulse 74 12/26/23 13:15 BP 112/60 12/26/23 13:15 Pulse Ox 96 12/26/23 13:15 Oxygen Delivery Method Room Air 12/26/23 13:15 BMI result Body Mass Index 14.9 Const General: no acute distress and ill appearing HEENT Head: Yes normocephalic General nose exam: Normal septum present, No nasal discharge present and Abnormal mucous membranes and turbinates present (Dry skin right nostril) erythematous and pale Skin Other: Dry skin bilateral palms of hand. No visible rash. Assessment & Plan Assessment & Plan (1) Rash: Code(s): R21 - Rash and other nonspecific skin eruption Plan: - No visible rash on palms - Dry skin - Stop picking nasal skin Medications: New hydrocortisone 1% 1 appl topical BID PRN 28.35 grams 0RF skin irritation R21 - Rash and other nonspecific skin eruption Coding Level of Care Code Est Pt Level 3 (03102) Diagnoses Rash R21 Time Spent (min) 10
== END 2023-12-26 13:56 | disposition home or self-care (01) ==
PROVIDERS: PCP Internal Medicine; Visit Provider Nurse Practitioner Family
DX: R21 Rash and other nonspecific skin eruption (principal)
CPT/HCPCS: 99213

== ENCOUNTER 2024-01-02 12:54 | Outpatient (AMB) | payer MEDICARE, SELFPAY ==
--- NOTE | 2024-01-02 13:05 | MHC.OFFVIS ---
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 Allergies No Known Allergies Allergy (Verified 01/02/24 13:09) HPI HPI Comments History of Present Illness Details 58 y/o female patient presents with her daughter for new in-person visit for evaluation of memory loss and forgetfulness. Pt has hx of depression, anxiety, biplor and COPD. Pt reports her memory has declined, especially short term memory loss, and it has been worsening over the last 6 months. She keeps forgetting recent conversation, can't remember what day it is, misplace things, forgets to take her medications. She ask same question over and same conversation over again. Pt has many doctor's appointments but does not remember what new medication prescribed or what was the plan, etc. Her daughter help to set up medications. She lives alone and drive locally. She takes care of billing and finances. She cooks, and not forgetting turning off the stove. Pt reports her depression is not manages well. She dose not see therapist anymore, she thought that it was not helpful. She is currently on seroquel, and setraline. Pt reports she has been smoking for 45 yrs, 10-12 cigarettes a day. She also drink 2 shots of vodka daily. Pt's daughter reports she does not eat well. She has bowl of cereal in the morning, one cup cake or candy for lunch and small amount of dinner daily. Pt states that she eats that meal for a long time. [facility] Medical History Smoker Anorexia nervosa Underweight Nicotine dependence, cigarettes, uncomplicated Urinary urgency Eczema Colonoscopy refused Mammogram declined Surgical History History of cervical biopsy History of tonsillectomy History of surgery on arm Family History Father Family history unknown Mother COPD (chronic obstructive pulmonary disease) Sister No problems noted. Sister COPD (chronic obstructive pulmonary disease) Social History Housing: House Alcohol intake: current Alcohol intake frequency: 0-2 drinks per day Patient Tobacco Use Status: Current everyday Tobacco user Tobacco use type: Cigarette Cigarettes Per Day: 10 Years Smoked: onset 13yo, 1ppd x 45yrs, now1/2ppd - 40pyh e-Cigarette/Vaping Use: Never Used Substance Use Type: Marijuana Current occupational status: disabled Sexual orientation: Straight/Heterosexual Gender identity: Female Cognitive needs: No Hearing needs: No Vision needs: No Review of Systems Const All systems reviewed & are unremarkable except as noted in HPI and below Physical Exam Vital Signs: Last Vital Signs Pulse 75 01/02/24 13:16 BP 115/80 01/02/24 13:16 Pulse Ox 97 01/02/24 13:16 Oxygen Delivery Method Room Air 01/02/24 13:16 BMI result Body Mass Index 15.3 Const General: cooperative Nutritional Appearance: malnourished Orientation/consciousness: patient oriented x3 Neck Neck: Yes full ROM and Yes supple Resp Effort & Inspection: normal respiratory effort and able to speak in complete sentences Neuro General: patient oriented x3, gait normal and moves all extremities Cranial nerves: Yes CN's II-XII intact bilaterally Cognition (Neuro): normal cognition Gait exam (Neuro): Normal gait present Motor exam (neuro): 5/5 motor strength present throughout Psych Appearance: grossly normal Mental Status: mental status grossly normal Speech and movement: Normal speech and movement present Affect: normal affect Attitude: cooperative Orientation What is the (year) (season) (date) (day) (month)?: year, season, date, day and month Where are we (state) (county) (town or city) (hospital) (floor)?: state, county, town or city, hospital/clinic and floor Registration Name of 3 unrelated objects clearly and slowly, then ask patient to repeat all 3 of them. (1st repeat determines score. Make sure they can repeat all three): object 1 and object 2 Attention & Calculation (CHOOSE ONE) Spell WORLD backwards (DLROW): 5 letters Recall Ask patient to repeat the 3 items from question #3.: object 1, object 2 and object 3 Language Show patient a wristwatch & ask what it is. Repeat for pencil.: watch and pencil Ask the patient to repeat the phrase 'No ifs, ands, or buts' after you.: correct Ask the patient to 'take a piece of paper with their right hand' 'fold paper in half' 'place paper on floor': take paper in right hand, fold paper in half and place paper on floor Print the sentence 'CLOSE YOUR EYES' on a piece. If patient actually closes eyes then score.: followed written direction Give patient a blank piece of paper & ask to write a sentence. Score if it contains a noun & verb.: sentence contains subject and verb Ask patient to copy figure of intersecting pentagons exactly. Score if all 10 angles & 2 intersects are included.: all 10 angles present & 2 are intersected Score Score: 29 Assessment & Plan Assessment & Plan (1) Memory change: Code(s): R41.3 - Other amnesia (2) Malnutrition: Code(s): E46 - Unspecified protein-calorie malnutrition Qualifiers: Malnutrition type: protein-calorie malnutrition Protein-calorie malnutrition severity: moderate Qualified Code(s): E44.0 - Moderate protein-calorie malnutrition Plan Pt was evaluated and discussed plan of care with Dr. Magdaleno. Pt did well on MMSE today, . Memory loss or forgetfulness more likely related to attention deficit, depression, and malnutrition. Will check labs to see any reversible causes of forgetfulness. MRI of brain ordered to assess. Refer patient to parts analyst. Advised patient to reduce smoking and alcohol intake. Orders: Orders Vitamin B12 and Folate 01/02/24 R41.3 - Other amnesia Vitamin D 25-OH (D2 and D3) 01/02/24 R41.3 - Other amnesia MR head/brain wo con 01/02/24 R41.3 - Other amnesia TSH reflex Free T4 01/02/24 R41.3 - Other amnesia Referrals Nutrition/Dietitian Referral E46 - Unspecified protein-calorie malnutrition, R63.6 - Underweight Coding Level of Care Code New Pt Level 4 (34448) Diagnoses Memory change R41.3 Moderate protein-calorie malnutrition E44.0 Malnutrition type: protein-calorie malnutrition Protein-calorie malnutrition severity: moderate
[2024-01-02 13:16] VITALS: BP 115/80; PULSE 75; O2SAT 97; BMI 15.3
== END 2024-01-02 14:05 | disposition home or self-care (01) ==
LOC: HO.HSMS 12:54
PROVIDERS: PCP Internal Medicine; Visit Provider Nurse Practitioner Family
DX: R41.3 Other amnesia (principal); E44.0 Moderate protein-calorie malnutrition
CPT/HCPCS: 99204

== ENCOUNTER → 2024-01-02 12:54 | Outpatient (BNVA) | payer MEDICARE, SELFPAY | PROVIDERS: PCP Internal Medicine; Visit Provider Nurse Practitioner Family | DX: R41.3 Other amnesia (principal); E44.0 Moderate protein-calorie malnutrition | CPT/HCPCS: 99202 ==

== ENCOUNTER 2024-01-02 14:09 | Outpatient (REF) | payer MEDICARE, SELFPAY ==
[2024-01-02 17:49] LABS: MANUAL DIFF FLAG NO
[2024-01-02 18:03] LABS: Estimated Average Glucose 100 mg/dL; Hemoglobin A1c % 5.1 % (<6.0)
[2024-01-02 18:15] LABS: Basophils Absolute Auto 0.1 X10*3/uL (0.0-0.2); Basophils Percent Auto 0.9 % (0-2); Eosinophils Absolute Auto 0.3 X10*3/uL (0.0-0.4); Eosinophils Percent Auto 5.3 % (0-4); Hematocrit 43.5 % (37.0-47.0); Hemoglobin 14.3 g/dl (12.0-16.0); Imm Gran Abs Auto 0.01 X10*3/uL (0.00-0.03); Imm Gran Pct Auto 0.2 % (0.0-0.4); Lymphocytes Absolute Auto 1.8 X10*3/uL (1.2-4.9); Lymphocytes Percent Auto 27.3 % (20-40); Mean Corpuscular HGB Conc 32.9 g/dl (31.0-35.0); Mean Corpuscular Hemoglobin 30.8 pg (27.0-33.0); Mean Corpuscular Volume 93.5 fL (80.0-98.0); Mean Platelet Volume 11.1 fL (9.4-12.3); Monocytes Absolute Auto 0.4 X10*3/uL (0.1-1.2); Monocytes Percent Auto 6.8 % (2-11); Neutrophils Absolute Auto 3.8 x10*3/uL (2.0-8.3); Neutrophils Percent Auto 59.5 % (45-73); Platelet Count 338 X10*3/uL (160-400); Red Blood Count 4.65 X10*6/uL (4.20-5.50); Red Cell Distribution Width 13.1 % (11.0-16.0); White Blood Count 6.5 X10*3/uL (4.8-10.8)
[2024-01-02 18:16] LABS: Alanine Aminotransferase 29 U/L (0-31); Albumin Level 4.3 g/dL (3.5-5.0); Alkaline Phosphatase 45 U/L (39-117); Amylase 93 U/L (28-100); Anion Gap 12 (12-20); Aspartate Amino Transferase 30 U/L (5-31); Bilirubin Total 0.3 mg/dL (0.0-1.0); Blood Urea Nitrogen 8 mg/dL (9-16); Calcium 9.9 mg/dL (8.4-10.2); Carbon Dioxide 34 mmol/L (22-29); Chloride 100 mmol/L (96-108); Estimated Glomerular Filt Rate > 60; Glucose Random 66 mg/dL (60-115); Potassium 4.7 mmol/L (3.3-5.1); Sodium 141 mmol/L (135-145); Total Protein 7.6 g/dL (6.5-8.0)
[2024-01-02 18:26] LABS: TSH reflex Free T4 2.35 uIU/mL (0.32-4.0)
[2024-01-02 18:46] LABS: Folate 11.4 ng/mL (> or = 4.0)
[2024-01-02 21:03] LABS: Vitamin B12 1029 pg/mL (200-900)
[2024-01-03 08:52] LABS: ~HepC Num1 0.13 S/CO (0.00-0.79); ~Hepatitis C Antibody Nonreactive (Nonreactive)
[2024-01-06 10:09] LABS: LDL Cholesterol Direct 90 mg/dL (<100)
[2024-01-07 09:15] LABS: Vitamin D 25-OH, D2 <4 ng/mL; Vitamin D 25-OH, D3 35 ng/mL; Vitamin D 25-OH, Total 35 ng/mL (30-100)
== END 2024-01-02 14:10 | disposition home or self-care (01) ==
LOC: HO.HKASLDS 14:09
PROVIDERS: Internal Medicine; Visit Provider Nurse Practitioner Family
DX: Z00.01 Encounter for general adult medical examination with abnormal findings (principal); N89.8 Other specified noninflammatory disorders of vagina; R41.3 Other amnesia; H60.542 Acute eczematoid otitis externa, left ear; F17.200 Nicotine dependence, unspecified, uncomplicated; F10.20 Alcohol dependence, uncomplicated; F33.9 Major depressive disorder, recurrent, unspecified; E46 Unspecified protein-calorie malnutrition; J44.9 Chronic obstructive pulmonary disease, unspecified; R06.02 Shortness of breath; K64.9 Unspecified hemorrhoids; R74.8 Abnormal levels of other serum enzymes
CPT/HCPCS: 36415; 80053; 82150; 82306; 82607; 82746; 83036; 83721; 84443; 85025; 86803

== ENCOUNTER 2024-01-31 18:00 | Outpatient (REF) | payer MEDICARE, SELFPAY ==
--- NOTE | ~2024-01-31 | MR_ITS ---
EXAMINATION: MR BRAIN WITHOUT CONTRAST CLINICAL INFORMATION: Memory loss COMPARISON: CT head 12/16/2018 and MRI brain 01/29/2014 TECHNIQUE: MRI of the brain was obtained using routine sequences without contrast. FINDINGS: Dental susceptibility artifact is noted, degrading assessment the anterior intracranial compartment on the DWI and GRE sequences and limiting diagnostic assessment of the maxillary sinuses. No acute infarct. There is a trace right parietal subdural hematoma with T1 and T2 FLAIR hyperintense products measuring 4 mm without significant mass effect on the subjacent brain parenchyma. Mild global cerebral volume loss. A few T2 FLAIR hyperintense foci in the subcortical and periventricular white matter, nonspecific but presumably mild chronic microangiopathy. No mass lesion, mass effect, or herniation pattern. Normal intracranial arterial and dural venous sinus flow voids. Normal appearance of the midline structures. 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 The orbits are grossly unremarkable. Small retention cyst in the right maxillary sinus. Asymmetric advanced right TMJ osteoarthrosis. Partially imaged cervical facet arthropathy, notably with severe hypertrophic facet arthrosis on the left at C3-C4. MR/MR head/brain wo con IMPRESSION: 1. 4 mm subacute appearing right parietal subdural hematoma without significant mass effect on the subjacent brain parenchyma. 2. Mild global cerebral volume loss and mild chronic microangiopathy. 3. Asymmetric advanced right TMJ osteoarthrosis.
== END 2024-01-31 18:01 | disposition home or self-care (01) ==
LOC: HO.MRI 18:00
PROVIDERS: PCP Internal Medicine; Visit Provider Nurse Practitioner Family
DX: R41.3 Other amnesia (principal)
CPT/HCPCS: 70551

== ENCOUNTER 2024-02-02 09:53 | Outpatient (REF) | payer MEDICARE, SELFPAY ==
--- NOTE | ~2024-02-02 | MM_ITS ---
EXAMINATION: MM SCREENING DIGITAL BREAST TOMOSYNTHESIS, BILATERAL CLINICAL INFORMATION: Screening. Asymptomatic. The patient has had significant weight loss since the last mammogram from 2022. COMPARISON: Mammography: This study is compared with prior exams dating back to 2019. TECHNIQUE: Digital breast tomosynthesis is performed in both the craniocaudal and mediolateral oblique views along with computer-aided detection (CAD). Synthesized 2D images are generated from the tomosynthesis. FINDINGS: The breasts are extremely dense, which lowers the sensitivity of mammography (ACR BI-RADS breast composition Category d). There are no significant masses, abnormal calcifications, or other abnormalities. MM/MM tomosynthesis screening BI IMPRESSION: No mammographic evidence of malignancy. ASSESSMENT: BI-RADS BI-RADS 1 - Negative RECOMMENDATION: Routine annual mammography screening. 1 year F/U This examination should not preclude the clinical evaluation of a suspicious palpable abnormality. This patient's information was entered into a reminder system with a target due date for their next mammogram.
== END 2024-02-02 09:54 | disposition home or self-care (01) ==
LOC: HO.MAMMO 09:53
PROVIDERS: PCP Internal Medicine; Visit Provider Internal Medicine
DX: Z12.31 Encounter for screening mammogram for malignant neoplasm of breast (principal)
CPT/HCPCS: 77063; 77067

== ENCOUNTER → 2024-02-02 10:00 | Outpatient (BNV) | payer MEDICARE, SELFPAY | PROVIDERS: PCP Internal Medicine; Visit Provider Radiology Diagnostic Radiology | DX: Z12.31 Encounter for screening mammogram for malignant neoplasm of breast (principal) | CPT/HCPCS: 77063; 77067 ==

== ENCOUNTER 2024-02-12 14:51 | Outpatient (AMB) | payer MEDICARE, SELFPAY ==
--- NOTE | 2024-02-12 14:54 | MHC.OFFVIS ---
Intake Vital Signs 02/12/24 14:57 Height 5 ft 3 in Weight 83 lb BMI 14.7 BP 134/75 Blood Pressure Location Lt brachial Position Sitting Pulse 80 Intake Visit Reasons: Hemorrhoids/colonoscopy screening Intake Note: Patient new consult for pre colonoscopy and hemorrhoids. Patient cc: loosing weight and denies any GI issues. Pullman Clerk Required: No Accompanied by: Self / Same As Patient Allergies No Known Allergies Allergy (Verified 02/12/24 14:53) HPI Hemorrhoids/colonoscopy screening HPI Details Assessment & Plan (1) Unintentional weight loss: ?Code(s): R63.4 - Abnormal weight loss ?Category:?Medical ?Plan: Of note, it appears the patient had an ER visit 08/2020 which is ordered labs are from although I cannot find a provider note.? I also see a note from her primary care provider indicating the patient does struggle with severe recurrent major depressive disorder.? She answers the phone and is tearful and starts telling me about a fight with her brother and says I just want to and leave this place. She is very stressed about her family problems. I allow her to vent for a while to determine if she is at a crisis level. She is able to be calmed, and she admits that she stopped taking her depression pills. After a while she started back on her Facebook problems and about the people who need to go back to [facility] and [place] if they don't like it here. She continues to eat mostly bananas, Pepsi and candy with hamburger helper and chicken susi. Her weight is 90 lbs at 5:4 She is now officially underweight, and I offer her a trial of megace. She also admits she continues to drink her vodka and OJ at night. She says she only drinks one drink a night but can not specify the amount of ETOH. She says 'I've given up on doctors and I don't want to try any more pills. With this, I think we need to stop trying to investigate if there is a GI problem until she can be stabilized in with her psychiatric problems - which is the most likely reason for her appetite problems, and her current psych situation really prevents her ability to effectively participate in any treatments or investigations in the specially setting. She has an appt with her psychiatric provider tomorrow. In the end she agrees to a trial of the make a but only if it does not have a significant co-pay.? I will try sending it, and asked her to call me if the medication is not well covered. ? ? ? Medications:?New: ? megestrol 20 mg PO BID 30 da ys 60 tabs 3RF ? ? (2) Major depressive disorder, recurrent episode, severe: ?Code(s): F33.2 - Major depressive disorder, recurrent severe without psychotic features ?Category:?Medical (3) Severely underweight adult: ?Comment: BMI 15 ht 5'4 wt 90 # aeb ?Code(s): R63.6 - Underweight ?Category:?Medical ?Plan: Of note, it appears the patient had an ER visit 08/2020 which is ordered labs are from although I cannot find a provider note.? I also see a note from her primary care provider indicating the patient does struggle with severe recurrent major depressive disorder.? She answers the phone and is tearful and starts telling me about a fight with her brother and says I just want to and leave this place. She is very stressed about her family problems. I allow her to vent for a while to determine if she is at a crisis level. She is able to be calmed, and she admits that she stopped taking her depression pills. After a while she started back on her Facebook problems and about the people who need to go back to [facility] and [place] if they don't like it here. She continues to eat mostly bananas, Pepsi and candy with hamburger helper and chicken susi. Her weight is 90 lbs at 5:4 She is now officially underweight, and I offer her a trial of megace. She also admits she continues to drink her vodka and OJ at night. She says she only drinks one drink a night but can not specify the amount of ETOH. She says 'I've given up on doctors and I don't want to try any more pills. With this, I think we need to stop trying to investigate if there is a GI problem until she can be stabilized in with her psychiatric problems - which is the most likely reason for her appetite problems, and her current psych situation really prevents her ability to effectively participate in any treatments or investigations in the specially setting. She has an appt with her psychiatric provider tomorrow. In the end she agrees to a trial of the make a but only if it does not have a significant co-pay.? I will try sending it, and asked her to call me if the medication is not well covered. ? ? ? Medications:?New: ? megestrol 20 mg PO BID 30 da ys 60 tabs 3RF ? ? P.m. 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 She continues to lose weight and is complaining of a bump on my anus and no fat filling in her buttocks with a prominent tailbone. She shows me a video that shows redness around the outer rectum, which may be pressure related. Her daughter is with her today and they admit that she does not eat well, this is related to her past habits when I work 12 hours I ate only cereal for years. She eats a banana with ensure in the am, candy and brownies for lunch at times with ensure, and shepards pie, hamburger helper or chicken susi or pizza at night with her OJ and vodka. This is the same as when I saw her in 2020. Still I will try again to see if we can get her a trial of Megace for her appetite and see if we can get her ensure covered by insurance so that she can drink it more than twice a day. With a BMI of 14 I would think that these medications would be covered since this is very underweight for her height and age. She denies any n/v early satiety, diarrhea or CIC. No abdominal pain. Apparently her mother has been developing memory problems which may be why she was lost follow-up in 2019 There are no prior problems with anesthesia or sedation. Her COPD is well controlled and her pulm is Dr. Erwin. NO cardiac problems. NO ID problems. There is no known FHX of CrC or polyps but she does not know her biological fathers hx. [facility] Medical History (Updated 02/12/24 @ 15:00 by DENISE Sky) Anal itching Vaginal discharge Colonoscopy refused Palpitation Colon cancer screening Nicotine dependence, cigarettes, uncomplicated Non-compliance Hospital discharge follow-up Smoker Anorexia nervosa Underweight Urinary urgency Eczema Mammogram declined Surgical History History of cervical biopsy History of tonsillectomy History of surgery on arm Family History Father Family history unknown Mother COPD (chronic obstructive pulmonary disease) Sister No problems noted. Sister COPD (chronic obstructive pulmonary disease) Social History Housing: House Alcohol intake: current Alcohol intake frequency: 0-2 drinks per day Patient Tobacco Use Status: Current everyday Tobacco user Tobacco use type: Cigarette Cigarettes Per Day: 10 Years Smoked: onset 13yo, 1ppd x 45yrs, now1/2ppd - 40pyh e-Cigarette/Vaping Use: Never Used Substance Use Type: Marijuana Current occupational status: disabled Sexual orientation: Straight/Heterosexual Gender identity: Female Cognitive needs: No Hearing needs: No Vision needs: No Review of Systems Const Denies fatigue, Denies fever(s), Denies night sweats, Denies poor appetite and Reports weight loss ENT Reports Normal hearing present, Denies dental pain, Denies dysphagia, Denies hearing loss, Denies mouth pain, Denies odynophagia, Denies throat swelling, Denies tongue swelling and Reports other (Dentition adequate) Card Reports no additional complaints and Reports dyspnea on exertion Resp Reports dyspnea on exertion GI Details: Denies abdominal pain, Denies melena, Denies bloating, Denies hematochezia, Denies constipation, Denies GI cramping, Denies dysphagia, Denies excessive flatus, Denies early satiety, Denies heartburn, Denies diarrhea, Denies nausea, Denies odynophagia, Denies vomiting and Denies hematemesis Skin/Breast Denies pruritus, Denies lesions, Denies rash and Denies jaundice Neuro Reports Normal hearing present, Denies Abnormal speech present and Reports memory loss Psych Reports memory loss Endo Denies fatigue Aller/Immun Denies throat swelling and Denies tongue swelling Physical Exam Vital Signs: Last Vital Signs Pulse 80 02/12/24 14:57 BP 134/75 02/12/24 14:57 BMI result Body Mass Index 14.7 Const General: cooperative, no acute distress, well developed and well groomed Nutritional Appearance: well nourished, cachectic and underweight Orientation/consciousness: oriented to person, oriented to place and oriented to time Limitations: No language barrier and other limitations (Memory) HEENT Head: Yes normocephalic and Yes atraumatic Eyes General: appearance normal, both eyes and all related structures Pupils: Equal, round and reactive pupils present Neck Neck: Yes normal visual inspection and Yes no lymphadenopathy Thyroid: Thyroid normal Resp Effort & Inspection: normal respiratory effort and able to speak in complete sentences Auscultation: clear to auscultation bilaterally Cardio Rate: regular rate Rhythm: regular rhythm Heart sounds: Normal, physiologic split S2 sound present Peripheral pulses: radial pulses present and posterior tibial pulses present GI Inspection: No distended and No Abdominal panniculus present Palpation (GI): Soft to palpation, nontender, no guarding, not rigid and No hepatosplenomegaly present Percussion: Yes normal to percussion Auscultation: normal bowel sounds Rectal Exam - Female: visual inspection normal, normal sphincter tone, No Lesions present (GI), No Anal fissure(s) present and hemorrhoids (Hemorrhoidal sac at 07:00 o'clock) Back/Spine/Pelvis Other: Profound protuberance of her tailbone due to lack of body fat Skin General skin exam: no rashes or lesions noted, turgor normal, skin not dry, no jaundice, No spider nevi and no striae Rashes: no rashes Nails: normal Neuro General: oriented to person, oriented to place and oriented to time Cranial nerves: Yes Equal, round and reactive pupils present and Yes Normal hearing present Speech: No Abnormal speech present Extrem General: Yes normal to inspection, No clubbing, No cyanosis and No edema Psych Appearance: grossly normal and well kempt Mental Status: mental status grossly normal Speech and movement: Normal speech and movement present Affect: normal affect Attitude: cooperative Thought process: not confabulating and Impoverished thought process present Thought content: Normal thought content present Insight: Poor insight present (Psych) Judgement: Poor judgement present (Psych) Assessment & Plan Assessment & Plan (1) Pre-op examination: Code(s): Z01.818 - Encounter for other preprocedural examination (2) EtOH dependence: Code(s): F10.20 - Alcohol dependence, uncomplicated Qualifiers: Substance use status: uncomplicated Qualified Code(s): F10.20 - Alcohol dependence, uncomplicated (3) Anorexia nervosa: Code(s): F50.00 - Anorexia nervosa, unspecified (4) COPD (chronic obstructive pulmonary disease): Comment: Patient has advanced chronic obstructive pulmonary disease already, basically it is staying stable. Code(s): J44.9 - Chronic obstructive pulmonary disease, unspecified Qualifiers: COPD type: emphysema Emphysema type: panlobular Qualified Code(s): J43.1 - Panlobular emphysema (5) Underweight: Comment: (BMI: 16.9 in 07/2020; BMI 15.7 in 06/2023) Code(s): R63.6 - Underweight Plan pT HAS BEEN LOST TO FOLLOW UP SINCE 2019, apparently she is referred here now for colonoscopy screening. She continues to lose weight and is complaining of a bump on my anus and no fat filling in her buttocks with a prominent tailbone. She shows me a video that shows redness around the outer rectum, which may be pressure related. Her daughter is with her today and they admit that she does not eat well, this is related to her past habits when I work 12 hours I ate only cereal for years. She eats a banana with ensure in the am, candy and brownies for lunch at times with ensure, and shepards pie, hamburger helper or chicken susi or pizza at night with her OJ and vodka. This is the same as when I saw her in 2019. Still I will try again to see if we can get her a trial of Megace for her appetite and see if we can get her ensure covered by insurance so that she can drink it more than twice a day. With a BMI of 14 I would think that these medications would be covered since this is very underweight for her height and age. She denies any n/v early satiety, diarrhea or CIC. No abdominal pain. Apparently her mother has been developing memory problems which may be why she was lost follow-up in 2019 There are no prior problems with anesthesia or sedation. Her COPD is well controlled and her pulm is Dr. Erwin. NO cardiac problems. NO ID problems. There is no known FHX of CrC or polyps but she does not know her biological fathers hx. Orders: Orders Colonoscopy - GI Use Only Today Z01.818 - Encounter for other preprocedural examination Medications: New bisacodyl (Dulcolax (bisacodyl)) 10 mg (2 x 5 mg) PO BEDTIME 4 tabs 0RF 2 days hydrocortisone 2.5% (Proctosol HC) BE SURE TO INCLUDE RECTAL APPICATOR!! 1 appl NE BID 30 grams 6RF hemorrhoids K64.9 - Unspecified hemorrhoids megestrol 40 mg PO DAILY 30 tabs 6RF R63.6 - Underweight Coding Level of Care Code New Pt Level 3 (87648) Diagnoses Pre-op examination Z01.818 Uncomplicated alcohol dependence F10.20 Substance use status: uncomplicated Anorexia nervosa F50.00 Panlobular emphysema J43.1 COPD type: emphysema Emphysema type: panlobular Underweight R63.6
[2024-02-12 14:57] VITALS: BP 134/75; PULSE 80; BMI 14.7
== END 2024-02-12 15:53 | disposition home or self-care (01) ==
PROVIDERS: PCP Internal Medicine; Visit Provider Nurse Practitioner
DX: Z01.818 Encounter for other preprocedural examination (principal); Z12.11 Encounter for screening for malignant neoplasm of colon; F50.00 Anorexia nervosa, unspecified; R63.6 Underweight
CPT/HCPCS: 99203

== ENCOUNTER → 2024-02-12 14:51 | Outpatient (BNVA) | payer MEDICARE, SELFPAY | PROVIDERS: PCP Internal Medicine; Visit Provider Nurse Practitioner | DX: Z01.818 Encounter for other preprocedural examination (principal); F50.00 Anorexia nervosa, unspecified; F10.20 Alcohol dependence, uncomplicated; R63.6 Underweight; J43.1 Panlobular emphysema | CPT/HCPCS: 99202 ==

== ENCOUNTER 2024-02-20 10:53 | Outpatient (AMB) | payer MEDICARE, SELFPAY ==
[2024-02-20 11:08] VITALS: BP 112/70; PULSE 72; TEMP 36.2; O2SAT 98; BMI 14.9
--- NOTE | 2024-02-20 11:08 | AM.OFFWIN_ITS ---
Intake Vital Signs 3 02/20/24 11:08 Height 5 ft 3 in Weight 84 lb BMI 14.9 BP 112/70 Blood Pressure Location Lt brachial Position Sitting Pulse 72 Pulse Source Pulse Oximeter Temp 97.2 F Temp Source Temporal Artery Scan Pulse Oximetry (%) 98 Oxygen Delivery Method Room Air Intake Visit Reasons: EP two bumps behind LT ear Intake Note: pt is here today for 2 bumps behind lft ear started 1 weeks ago Patient Tobacco Use Status: Current everyday Tobacco user Allergies No Known Allergies Allergy (Verified 02/20/24 11:15) Medication List - Last Reconciled 02/20/24 by Vito Beal MD albuterol sulfate 90 mcg/actuation 2 puffs inhalation Q4-6H PRN 30 days bisacodyl (Dulcolax (bisacodyl)) 10 mg (2 x 5 mg) PO BEDTIME 2 days doxylamine succinate (Unisom (doxylamine)) 25 mg PO BEDTIME PRN fluticasone propion-salmeterol 250-50 mcg/dose (Advair Diskus) 1 inh inhalation BID 30 days fluticasone propion-salmeterol 250-50 mcg/dose (Wixela Inhub) 1 inh inhalation BID 30 days fluticasone propionate 50 mcg/actuation (Allergy Relief (fluticasone)) 1 spray intranasal DAILY 30 days food supplemt, lactose-reduced (Ensure oral liquid) 1 ea PO QID hydrocortisone 1% 1 appl topical BID PRN hydrocortisone 2.5% (Proctosol HC) 1 appl AK BID hydrocortisone-acetic acid 1-2 % 4 drps otic (ear) left TID 7 days megestrol 40 mg PO DAILY metronidazole 0.75%(37.5mg/5gram) 1 appful vaginal DAILY 5 days quetiapine (Seroquel) 25 mg PO BEDTIME 90 days sertraline 50 mg PO DAILY tiotropium bromide (Spiriva with HandiHaler) 1 cap inhalation DAILY 30 days valacyclovir 500 mg PO ONCE 90 days Do you need a note to return to daycare/school/sports/work: No HPI EP two bumps behind LT ear 2 HPI0 Details 58-year-old female came in today to be e valuated for 2 pumps behind her left ear Patient have chronic eczema and she keeps picking on it external ear left side I have prescribed steroid ear drops and hydrocortisone cream for external ear which patient is not using Explained to her that she need to use the cream so eczema can be controlled Bump but she is feeling better the ears are enlarged lymph node because of chronic inflammation I have sent hydrocortisone cream again for the patient she is to use it 2 times a day until eczema resolves [facility] Medical History Anal itching Vaginal discharge Colonoscopy refused Palpitation Colon cancer screening Nicotine dependence, cigarettes, uncomplicated Non-compliance Hospital discharge follow-up Smoker Anorexia nervosa Underweight Urinary urgency Eczema Mammogram declined Surgical History History of cervical biopsy History of tonsillectomy History of surgery on arm Family History Father Family history unknown Mother COPD (chronic obstructive pulmonary disease) Sister No problems noted. Sister COPD (chronic obstructive pulmonary disease) Social History Housing: House Alcohol intake: current Alcohol intake frequency: 0-2 drinks per day Patient Tobacco Use Status: Current everyday Tobacco user Tobacco use type: Cigarette Cigarettes Per Day: 10 Years Smoked: onset 13yo, 1ppd x 45yrs, now1/2ppd - 40pyh e-Cigarette/Vaping Use: Never Used Substance Use Type: Marijuana Current occupational status: disabled Sexual orientation: Straight/Heterosexual Gender identity: Female Cognitive needs: No Hearing needs: No Vision needs: No Review of Systems Const All systems reviewed & are unremarkable except as noted in HPI and below Physical Exam Vital Signs: Last Vital Signs Temp 97.2 F 02/20/24 11:08 Pulse 72 02/20/24 11:08 BP 112/70 02/20/24 11:08 Pulse Ox 98 02/20/24 11:08 Oxygen Delivery Method Room Air 02/20/24 11:08 BMI result Body Mass Index 14.9 Const General: no acute distress Orientation/consciousness: patient oriented x3 HEENT Head images: 2 1. Chronic eczema left external ear 2. Enlarged lymph node 3. Enlarged lymph node Eyes General: appearance normal, both eyes and all related structures Resp Effort & Inspection: able to speak in complete sentences Auscultation: clear to auscultation bilaterally Neuro General: patient oriented x3 Psych Mental Status: mental status grossly normal Assessment & Plan Assessment & Plan (1) Eczema of left external ear: Code(s): H60.542 - Acute eczematoid otitis externa, left ear (2) Lymphadenopathy, periauricular: Code(s): R59.0 - Localized enlarged lymph nodes Plan 58-year-old female came in today to be evaluated for 2 pumps behind her left ear Patient have chronic eczema and she keeps picking on it external ear left side I have prescribed steroid ear drops and hydrocortisone cream for external ear which patient is not using Explained to her that she need to use the cream so eczema can be controlled Bump but she is feeling better the ears are enlarged lymph node because of chronic inflammation I have sent hydrocortisone cream again for the patient she is to use it 2 times a day until eczema resolves Medications: Refilled 2 hydrocortisone 1% 1 appl topical BID PRN 28.35 grams 0RF skin irritation R21 - Rash and other nonspecific skin eruption Coding Level of Care Code Est Pt Level 3 (64507) Diagnoses Eczema of left external ear H60.542 Lymphadenopathy, periauricular R59.0
== END 2024-02-20 12:09 | disposition home or self-care (01) ==
PROVIDERS: PCP Internal Medicine; Visit Provider Internal Medicine
DX: H60.542 Acute eczematoid otitis externa, left ear (principal); R59.0 Localized enlarged lymph nodes
CPT/HCPCS: 99213

== ENCOUNTER 2024-03-10 15:57 | Outpatient (AMB) | payer MEDICARE, SELFPAY ==
[2024-03-10 16:02] VITALS: BP 92/70; PULSE 104; O2SAT 94; BMI 14.0
--- NOTE | 2024-03-10 16:02 | A.OFFVIS_ITS ---
Vital Signs 03/10/24 16:02 Height 5 ft 3 in Weight 79 lb BMI 14.0 BP 92/70 Blood Pressure Location Lt brachial Position Sitting Pulse 104 H Pulse Source Pulse Oximeter Pulse Oximetry (%) 94 Oxygen Delivery Method Room Air Intake Visit Reasons: COPD Intake Note: pt is here for follow up and states she is is short of breath with stairs, coughing till big clumps of phlegm, wheeze at times. Change Management Director Required: No Allergies No Known Allergies Allergy (Verified 03/10/24 16:30) Medication List - Last Reconciled 03/10/24 by Chacho Erwin MD albuterol sulfate 90 mcg/actuation 2 puffs inhalation Q4-6H PRN 30 days bisacodyl (Dulcolax (bisacodyl)) 10 mg (2 x 5 mg) PO BEDTIME 2 days doxylamine succinate (Unisom (doxylamine)) 25 mg PO BEDTIME PRN fluticasone propion-salmeterol 250-50 mcg/dose (Wixela Inhub) 1 inh inhalation BID 30 days fluticasone propionate 50 mcg/actuation (Allergy Relief (fluticasone)) 1 spray intranasal DAILY 30 days food supplemt, lactose-reduced (Ensure oral liquid) 1 ea PO QID hydrocortisone 1% 1 appl topical BID PRN hydrocortisone 2.5% (Proctosol HC) 1 appl [place] BID hydrocortisone-acetic acid 1-2 % 4 drps otic (ear) left TID 7 days megestrol 40 mg PO DAILY 90 days metronidazole 0.75%(37.5mg/5gram) 1 appful vaginal DAILY 5 days quetiapine (Seroquel) 25 mg PO BEDTIME 90 days sertraline 50 mg PO DAILY tiotropium bromide (Spiriva with HandiHaler) 1 cap inhalation DAILY 30 days valacyclovir 500 mg PO ONCE 90 days Do you need a note to return to daycare/school/sports/work: No HPI HPI COPD: Details: 58 years old female is here for follow-up for her COPD. She is still smoking 10 cigarettes a day, not able to cut it down. Her breathing is holding fairly stable with the current medical regimen. She continues to use Advair and Spiriva HandiHaler daily and also ProAir as needed. She has somewhat poor understanding about the meds and I had to review the inhalers with her in detail. Her main concern is that she feels some mucus in the morning. I think it is due to the ensure that she drinks in the morning. During rest of the day she does not have much cough or expectoration. She still remains underweight, and is trying to use some nutritional supplements. But her overall dietary intake remains suboptimal. REPLACED BY [facility] Medical History Anal itching Vaginal discharge Colonoscopy refused Palpitation Colon cancer screening Nicotine dependence, cigarettes, uncomplicated Non-compliance Hospital discharge follow-up Smoker Anorexia nervosa Underweight Urinary urgency Eczema Mammogram declined Surgical History History of cervical biopsy History of tonsillectomy History of surgery on arm Family History Father Family history unknown Mother COPD (chronic obstructive pulmonary disease) Sister No problems noted. Sister COPD (chronic obstructive pulmonary disease) Social History Housing: House Alcohol intake: current Alcohol intake frequency: 0-2 drinks per day Patient Tobacco Use Status: Current everyday Tobacco user Tobacco use type: Cigarette Cigarettes Per Day: 10 Years Smoked: onset 13yo, 1ppd x 45yrs, now1/2ppd - 40pyh e-Cigarette/Vaping Use: Never Used Substance Use Type: Marijuana Current occupational status: disabled Sexual orientation: Straight/Heterosexual Gender identity: Female Cognitive needs: No Hearing needs: No Vision needs: No Review of Systems Const All systems reviewed & are unremarkable except as noted in HPI and below Eyes Reports no additional complaints ENT Reports nasal congestion (OFF AND ON) Card Denies irregular heart rhythm and Denies leg edema Resp Reports as per HPI GI Reports other (LACK OF APPETITE, AND POOR DIETARY INTAKE.) Reports nocturia Musc Reports other (GENERAL MUSCLE WEAKNESS) Skin/Breast Reports system reviewed and no additional complaints, except as documented Neuro Reports no additional complaints Psych Reports anxiety and Reports depression Physical Exam Vital Signs: Last Vital Signs Pulse 104 H 03/10/24 16:02 BP 92/70 03/10/24 16:02 Pulse Ox 94 03/10/24 16:02 Oxygen Delivery Method Room Air 03/10/24 16:02 BMI result Body Mass Index 14.0 PATIENT IS DEFINITELY UNDER NOURISHED, OF A THIN BUILD, CHRONICALLY SICK- LOOKING. Const General: comfortable, no acute distress, alert and awake Orientation/consciousness: patient oriented x3 HEENT Head: Yes normal to inspection General nose exam: No nasal polyps present, No nasal discharge present and Other nasal findings present (ONLY MILD NASAL CONGESTION) Face and sinus: Yes sinuses nontender Mouth: oropharynx normal Throat: Yes posterior oropharynx normal Eyes General: appearance normal, both eyes and all related structures Neck Neck: Yes normal visual inspection, Yes no lymphadenopathy, Yes trachea midline and Yes no JVD Thyroid: Thyroid normal Chest Chest palpation & inspection: normal inspection of the chest, normal palpation of entire chest wall and no tenderness Resp Other: PERCUSSION NOTE IS HYPER-RESONANT, BREATH SOUNDS ARE VERY DISTANT ON BOTH SIDES WITH. PROLONGED EXPIRATORY PHASE NO WHEEZES RHONCHI OR CREPITATIONS. ARE HEARD Cardio Palpation: normal PMI Rate: regular rate Rhythm: regular rhythm Heart sounds: no gallops and no murmurs Peripheral pulses: Peripheral pulses 2+ throughout GI Palpation (GI): Soft to palpation, nontender, No hepatosplenomegaly present and no masses Auscultation: normal bowel sounds Back/Spine/Pelvis Thoracic/Lumbar Spine: thoracic and lumbar spine normal to inspection Skin General skin exam: no rashes or lesions noted Neuro General: patient oriented x3 and no focal motor deficits Cranial nerves: Yes CN's II-XII intact bilaterally Extrem General: Yes normal to inspection, Yes no clubbing, cyanosis or edema and Yes no calf tenderness Psych Speech and movement: Normal speech and movement present Assessment & Plan Assessment & Plan (1) COPD (chronic obstructive pulmonary disease): Comment: Patient has advanced chronic obstructive pulmonary disease already, basically it is staying stable. Code(s): J44.9 - Chronic obstructive pulmonary disease, unspecified Category: Medical Qualifiers: COPD type: emphysema Emphysema type: panlobular Qualified Code(s): J43.1 - Panlobular emphysema Plan: Continue Advair 250-51 inhalation b.i.d. Spiriva HandiHaler 1 inhalation. daily ProAir 2 puffs Q 4-6 hours only p.r.n. (2) Smoker: Comment: Patient still smoking but has reduced to 10 cigarettes a day. Does not think that she can reduce it any further. Code(s): F17.200 - Nicotine dependence, unspecified, uncomplicated Category: Social Hx Plan: Counseled to try to cut down to 5-6 cigarettes a day as the next step, with a goal to stop completely. (3) Underweight: Comment: (BMI: 14.0 she remains malnourished and underweight. Code(s): R63.6 - Underweight Category: Medical Plan: Encouraged to increase her oral intake. Continue to use nutritional supplements as ensure , may increase to twice a day. Coding Level of Care Code Est Pt Level 3 (71243) Diagnoses Panlobular emphysema J43.1 COPD type: emphysema Emphysema type: panlobular Smoker F17.200 Underweight R63.6
== END 2024-03-10 16:29 | disposition home or self-care (01) ==
PROVIDERS: PCP Internal Medicine; Visit Provider Internal Medicine
DX: J43.1 Panlobular emphysema (principal); F17.200 Nicotine dependence, unspecified, uncomplicated; R63.6 Underweight
CPT/HCPCS: 99213

== ENCOUNTER → 2024-03-10 15:57 | Outpatient (BNVA) | payer MEDICARE, SELFPAY | PROVIDERS: PCP Internal Medicine; Visit Provider Internal Medicine | DX: J43.1 Panlobular emphysema (principal); R63.6 Underweight; F17.210 Nicotine dependence, cigarettes, uncomplicated | CPT/HCPCS: 99212 ==

== ENCOUNTER 2024-03-11 13:49 | Outpatient (AMB) | payer MEDICARE, SELFPAY ==
[2024-03-11 13:53] VITALS: BP 112/70; PULSE 100; TEMP 36.4; O2SAT 92; BMI 14.9
--- NOTE | 2024-03-11 13:53 | AM.OFFWIN_ITS ---
Intake Vital Signs 03/11/24 13:53 Height 5 ft 3 in Weight 84 lb BMI 14.9 BP 112/70 Blood Pressure Location Lt brachial Position Sitting Pulse 100 Pulse Source Pulse Oximeter Temp 97.5 F Temp Source Temporal Artery Scan Pulse Oximetry (%) 92 Oxygen Delivery Method Room Air Intake Visit Reasons: EP alot of bleeding and weight loss Intake Note: pt is her today for bleeding and weight lost started 1 week ago Patient Tobacco Use Status: Current everyday Tobacco user Allergies No Known Allergies Allergy (Verified 03/11/24 14:10) Medication List - Last Reconciled 03/11/24 by Maximo House MD albuterol sulfate 90 mcg/actuation 2 puffs inhalation Q4-6H PRN 30 days bisacodyl (Dulcolax (bisacodyl)) 10 mg (2 x 5 mg) PO BEDTIME 2 days doxylamine succinate (Unisom (doxylamine)) 25 mg PO BEDTIME PRN fluticasone propion-salmeterol 250-50 mcg/dose (Wixela Inhub) 1 inh inhalation BID 30 days fluticasone propionate 50 mcg/actuation (Allergy Relief (fluticasone)) 1 spray intranasal DAILY 30 days food supplemt, lactose-reduced (Ensure oral liquid) 1 ea PO QID hydrocortisone 1% 1 appl topical BID PRN hydrocortisone 2.5% (Proctosol HC) 1 appl [place] BID hydrocortisone-acetic acid 1-2 % 4 drps otic (ear) left TID 7 days megestrol 40 mg PO DAILY 90 days metronidazole 0.75%(37.5mg/5gram) 1 appful vaginal DAILY 5 days quetiapine (Seroquel) 25 mg PO BEDTIME 90 days sertraline 50 mg PO DAILY tiotropium bromide (Spiriva with HandiHaler) 1 cap inhalation DAILY 30 days valacyclovir 500 mg PO ONCE 90 days Do you need a note to return to daycare/school/sports/work: No HPI EP alot of bleeding and weight loss HPI Details The complaint provided to the front staff is different than the complaint provided to me as a provider. 59 yr woman presents to the office for a sick visit. She is reporting irritation at the the tip of her right nostril and at the base of the ear. She also reports that she has short term memory loss. Came to the clinic on her own. [facility] Medical History Anal itching Vaginal discharge Colonoscopy refused Palpitation Colon cancer screening Nicotine dependence, cigarettes, uncomplicated Non-compliance Hospital discharge follow-up Smoker Anorexia nervosa Underweight Urinary urgency Eczema Mammogram declined Surgical History History of cervical biopsy History of tonsillectomy History of surgery on arm Family History Father Family history unknown Mother COPD (chronic obstructive pulmonary disease) Sister No problems noted. Sister COPD (chronic obstructive pulmonary disease) Social History Housing: House Alcohol intake: current Alcohol intake frequency: 0-2 drinks per day Patient Tobacco Use Status: Current everyday Tobacco user Tobacco use type: Cigarette Cigarettes Per Day: 10 Years Smoked: onset 13yo, 1ppd x 45yrs, now1/2ppd - 40pyh e-Cigarette/Vaping Use: Never Used Substance Use Type: Marijuana Current occupational status: disabled Sexual orientation: Straight/Heterosexual Gender identity: Female Cognitive needs: No Hearing needs: No Vision needs: No Physical Exam Vital Signs: Last Vital Signs Temp 97.5 F 03/11/24 13:53 Pulse 100 03/11/24 13:53 BP 112/70 03/11/24 13:53 Pulse Ox 92 03/11/24 13:53 Oxygen Delivery Method Room Air 03/11/24 13:53 BMI result Body Mass Index 14.9 Skin Other: Minimal irritation at the base of the left nostril and left ear.. Assessment & Plan Assessment & Plan (1) Eczema of left external ear: Code(s): H60.542 - Acute eczematoid otitis externa, left ear Plan: Advised her to use the steroid cream. Patient was advised to see her PCP for memory issues. She is verbally understanding. Coding Level of Care Code Est Pt Level 3 (59308) Diagnoses Eczema of left external ear H60.542
== END 2024-03-11 15:49 | disposition home or self-care (01) ==
PROVIDERS: PCP Internal Medicine; Visit Provider Internal Medicine
DX: H60.542 Acute eczematoid otitis externa, left ear (principal)
CPT/HCPCS: 99213

== ENCOUNTER 2024-03-14 11:21 | Outpatient (AMB) | payer MEDICARE, SELFPAY ==
[2024-03-14 11:21] VITALS: BP 122/60; PULSE 107; O2SAT 97; BMI 14.9
--- NOTE | 2024-03-14 11:21 | AM.OFFWIN_ITS ---
Intake Vital Signs 03/14/24 11:21 Height 5 ft 3 in Weight 84 lb BMI 14.9 BP 122/60 Blood Pressure Location Lt brachial Position Sitting Pulse 107 H Pulse Source Pulse Oximeter Pulse Oximetry (%) 97 Oxygen Delivery Method Room Air Intake Visit Reasons: EP Scratches on arm and back Intake Note: Pt presents to the office today for scratches on her left arm and a few on her back. She states she woke up in the morning. Patient Tobacco Use Status: Current everyday Tobacco user Allergies No Known Allergies Allergy (Verified 03/14/24 11:24) HPI HPI Comments History of Present Illness Details 59 y/o female patient who presents to [facility] in clinic with c/o scratches on her left forearm since this morning. Reports itching and scratching since this Morning. [facility] Medical History Anal itching Vaginal discharge Colonoscopy refused Palpitation Colon cancer screening Nicotine dependence, cigarettes, uncomplicated Non-compliance Hospital discharge follow-up Smoker Anorexia nervosa Underweight Urinary urgency Eczema Mammogram declined Surgical History History of cervical biopsy History of tonsillectomy History of surgery on arm Family History Father Family history unknown Mother COPD (chronic obstructive pulmonary disease) Sister No problems noted. Sister COPD (chronic obstructive pulmonary disease) Social History Housing: House Alcohol intake: current Alcohol intake frequency: 0-2 drinks per day Patient Tobacco Use Status: Current everyday Tobacco user Tobacco use type: Cigarette Cigarettes Per Day: 10 Years Smoked: onset 13yo, 1ppd x 45yrs, now1/2ppd - 40pyh e-Cigarette/Vaping Use: Never Used Substance Use Type: Marijuana Current occupational status: disabled Sexual orientation: Straight/Heterosexual Gender identity: Female Cognitive needs: No Hearing needs: No Vision needs: No Review of Systems Const All systems reviewed & are unremarkable except as noted in HPI and below Physical Exam Vital Signs: Last Vital Signs Pulse 107 H 03/14/24 11:21 BP 122/60 03/14/24 11:21 Pulse Ox 97 03/14/24 11:21 Oxygen Delivery Method Room Air 03/14/24 11:21 BMI result Body Mass Index 14.9 Const Orientation/consciousness: patient oriented x3 Skin Other: Visible scratches with scaring left forearm General skin exam: dry skin and lichenification Neuro General: patient oriented x3, gait normal and moves all extremities Psych Speech and movement: Normal speech and movement present Assessment & Plan Assessment & Plan (1) Rash and nonspecific skin eruption: Code(s): R21 - Rash and other nonspecific skin eruption Plan: - Continue using Hydrocortisone cream - Take Hydroxyzine for itching. Medications: New hydroxyzine HCl 25 mg PO BEDTIME 14 tabs 0RF itching R21 - Rash and other nonspecific skin eruption Coding Level of Care Code Est Pt Level 3 (83428) Diagnoses Rash and nonspecific skin eruption R21 Time Spent (min) 15
== END 2024-03-14 12:17 | disposition home or self-care (01) ==
PROVIDERS: PCP Internal Medicine; Visit Provider Nurse Practitioner Family
DX: R21 Rash and other nonspecific skin eruption (principal)
CPT/HCPCS: 99213

== ENCOUNTER 2024-03-17 16:00 | Outpatient (REF) | payer MEDICARE, SELFPAY ==
--- NOTE | ~2024-03-17 | MR_ITS ---
MR BRAIN WITHOUT AND WITH CONTRAST CLINICAL INFORMATION: Traumatic subdural hemorrhage with loss of consciousness. COMPARISON: Brain MRI 01/31/2024. TECHNIQUE: Multiplanar, multisequence MRI of the brain was obtained before and after the intravenous administration of 5.5 mL Gadavist. FINDINGS: There is no pathologic intracranial enhancement. Global cerebral volume loss with a temporal lobe predominance and mild chronic microangiopathy. There is no hydrocephalus or herniation. The major flow voids at the skull base are preserved. There is no acute infarct on diffusion-weighted imaging. There is no intracranial hemorrhage on the gradient recalled echo acquisition. The midline structures are normal. The cerebellar tonsils are normally positioned. The cerebellum and brainstem are normal. The craniocervical junction is normal. Advanced right-sided TMJ arthropathy. MR/MR head/brain wo/w con IMPRESSION: - Slight decrease in size of the trace subacute appearing subdural collection along the right parietal convexity which exerts no significant mass effect. There is no midline shift. - Global cerebral volume loss with a temporal lobe predominant and mild chronic microangiopathy. - Advanced right-sided TMJ arthropathy.
[2024-03-17] MEDS: gadobutroL 7.5 ML VIAL IVPUSH (16:42)
== END 2024-03-17 16:01 | disposition home or self-care (01) ==
LOC: HO.MRI 16:00
PROVIDERS: PCP Internal Medicine; Visit Provider Nurse Practitioner Family
DX: S06.5XAA Traumatic subdural hemorrhage with loss of consciousness status unknown, initial encounter (principal)
CPT/HCPCS: 70553; A9585

== ENCOUNTER 2024-03-19 15:01 | Outpatient (AMB) | payer MEDICARE, SELFPAY ==
[2024-03-19 15:06] VITALS: BP 120/64; PULSE 104; O2SAT 96
--- NOTE | 2024-03-19 15:06 | AM.OFFWIN_ITS ---
Intake Vital Signs 03/19/24 15:06 Height 5 ft 2 in BP 120/64 Blood Pressure Location Rt brachial Position Sitting Pulse 104 H Pulse Source Pulse Oximeter Pulse Oximetry (%) 96 Oxygen Delivery Method Room Air Intake Visit Reasons: EST/ COPD (lobby) Intake Note: pt is here for copd Patient Tobacco Use Status: Current everyday Tobacco user Allergies No Known Allergies Allergy (Verified 03/19/24 15:08) Do you need a note to return to daycare/school/sports/work: No HPI HPI Comments History of Present Illness Details 59 y/o female patient presents to walk [facility] n clinic asking for her MRI results. She states that a Radiologist informed her that she has a Brain Bleed and now wants to follow up. I informed Pt that I did not have the results infront of me. I also informed her once her PCP receives the results she will be called over the phone to discuss them. Pt was upset and walked out of the visit. [facility] Medical History Anal itching Vaginal discharge Colonoscopy refused Palpitation Colon cancer screening Nicotine dependence, cigarettes, uncomplicated Non-compliance Hospital discharge follow-up Smoker Anorexia nervosa Underweight Urinary urgency Eczema Mammogram declined Surgical History History of cervical biopsy History of tonsillectomy History of surgery on arm Family History Father Family history unknown Mother COPD (chronic obstructive pulmonary disease) Sister No problems noted. Sister COPD (chronic obstructive pulmonary disease) Social History Housing: House Alcohol intake: current Alcohol intake frequency: 0-2 drinks per day Patient Tobacco Use Status: Current everyday Tobacco user Tobacco use type: Cigarette Cigarettes Per Day: 10 Years Smoked: onset 13yo, 1ppd x 43yrs, now1/2ppd - 40pyh e-Cigarette/Vaping Use: Never Used Substance Use Type: Marijuana Current occupational status: disabled Sexual orientation: Straight/Heterosexual Gender identity: Female Cognitive needs: No Hearing needs: No Vision needs: No Review of Systems Const All systems reviewed & are unremarkable except as noted in HPI and below Physical Exam Vital Signs: Last Vital Signs Pulse 104 H 03/19/24 15:06 BP 120/64 03/19/24 15:06 Pulse Ox 96 03/19/24 15:06 Oxygen Delivery Method Room Air 03/19/24 15:06 Const General: no acute distress Psych Speech and movement: Normal speech and movement present Affect: Anxious affect present and Irritable affect present Assessment & Plan Assessment & Plan (1) Encounter to discuss test results: Code(s): Z71.2 - Person consulting for explanation of examination or test findings Plan: - Informed Pt that I was aware of any imaging previously done, and I do not have results to discuss with her - Advised Pt that PCP will be calling her once results received. Coding Level of Care Code Est Pt Level 3 (27541) Diagnoses Encounter to discuss test results Z71.2 Time Spent (min) 15
== END 2024-03-19 15:38 | disposition home or self-care (01) ==
LOC: HO.HMGWI 15:01
PROVIDERS: PCP Internal Medicine
DX: Z71.2 Person consulting for explanation of examination or test findings (principal)
CPT/HCPCS: 99213

== ENCOUNTER 2024-03-21 11:49 | Outpatient (AMB) | payer MEDICARE, SELFPAY ==
--- NOTE | 2024-03-21 11:53 | A.OFFPC_ITS ---
Vital Signs 03/21/24 11:54 Height 5 ft 3 in Weight 83 lb BMI 14.7 BP 112/70 Blood Pressure Location Rt brachial Position Sitting Pulse 72 Pulse Source Pulse Oximeter Pulse Oximetry (%) 96 Oxygen Delivery Method Room Air Intake Visit Reasons: 3M F/U~ Allergies No Known Allergies Allergy (Verified 03/21/24 11:55) Medication List - Last Reconciled 03/21/24 by Vito Beal MD albuterol sulfate 90 mcg/actuation 2 puffs inhalation Q4-6H PRN 30 days bisacodyl (Dulcolax (bisacodyl)) 10 mg (2 x 5 mg) PO BEDTIME 2 days doxylamine succinate (Unisom (doxylamine)) 25 mg PO BEDTIME PRN fluticasone propion-salmeterol 250-50 mcg/dose (Wixela Inhub) 1 inh inhalation BID 30 days fluticasone propionate 50 mcg/actuation (Allergy Relief (fluticasone)) 1 spray intranasal DAILY 30 days food supplemt, lactose-reduced (Ensure oral liquid) 1 ea PO QID hydrocortisone 1% 1 appl topical BID PRN hydrocortisone 2.5% (Proctosol HC) 1 appl [place] BID hydrocortisone-acetic acid 1-2 % 4 drps otic (ear) left TID 7 days hydroxyzine HCl 25 mg PO BEDTIME megestrol 40 mg PO DAILY 90 days metronidazole 0.75%(37.5mg/5gram) 1 appful vaginal DAILY 5 days quetiapine (Seroquel) 25 mg PO BEDTIME 90 days sertraline 50 mg PO DAILY tiotropium bromide (Spiriva with HandiHaler) 1 cap inhalation DAILY 30 days valacyclovir 500 mg PO ONCE 90 days Tobacco use date assessed: 12/21/23 Dental Screening Dental Screen Date: 12/21/23 HPI 3M F/U~ HPI Details Patient is 59-year-old female with severe COPD, chronic smoker, alcoholism, protein malnutrition, comes to clinic recurrently She has a history of eczema around her ears Recently started seeing client success specialist [facility] Patient have memory deficit she had a visit with Neurology 01/02/2024 [facility] Neurology. Notes reviewed evaluation states Patient did well on MMSE with a score of 29/30 Memory loss and forgetfulness is more likely secondary to attention deficit disorder, depression and malnutrition. 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 We talked about the nutrition today I kept explaining to patient that it is important she stopped drinking soda and eating cup cakes It is important that she starts eating more protein, explained to her which foods have protein. 30 minutes [id number] and extra 15 minutes to review the chart, neuro consultation MRI reports, charting and coordination of care [facility] Medical History Anal itching Vaginal discharge Colonoscopy refused Palpitation Colon cancer screening Nicotine dependence, cigarettes, uncomplicated Non-compliance Hospital discharge follow-up Smoker Anorexia nervosa Underweight Urinary urgency Eczema Mammogram declined Surgical History History of cervical biopsy History of tonsillectomy History of surgery on arm Family History Father Family history unknown Mother COPD (chronic obstructive pulmonary disease) Sister No problems noted. Sister COPD (chronic obstructive pulmonary disease) Social History Housing: House Alcohol intake: current Alcohol intake frequency: 0-2 drinks per day Patient Tobacco Use Status: Current everyday Tobacco user Tobacco use type: Cigarette Cigarettes Per Day: 10 Years Smoked: onset 13yo, 1ppd x 45yrs, now1/2ppd - 40pyh Packs per year/per ci.00 e-Cigarette/Vaping Use: Never Used Substance Use Type: Marijuana Current occupational status: disabled Sexual orientation: Straight/Heterosexual Gender identity: Female Cognitive needs: No Hearing needs: No Vision needs: No Questionnaire Thrive Questionnaire Date Thrive assessed: 08/03/21 STEVE-7 AMB Questionnaire STEVE-7 Date STEVE - 7 assessed: 09/28/23 Source: Developed by Drs. Ganga Bauer, Brooklyn Benedict, Dionte Puente and colleagues, with an educational albert from [employer]. Review of Systems Const Denies chills and Denies fever(s) ENT Denies epistaxis and Denies nasal discharge Card Denies chest pain Resp Denies chest congestion and Denies hemoptysis GI Denies diarrhea and Denies nausea Skin/Breast Denies rash Neuro Reports no additional complaints Psych Reports no additional complaints Endo Reports no additional complaints Physical exam (Primary Care) Vital Signs: Last Vital Signs Pulse 72 03/21/24 11:54 BP 112/70 03/21/24 11:54 Pulse Ox 96 03/21/24 11:54 Oxygen Delivery Method Room Air 03/21/24 11:54 BMI result Body Mass Index 14.7 Tobacco/Smoking Status: Tobacco use Status Tobacco use date assessed 12/21/23 03/21/24 11:54 Patient Tobacco Use Status Current everyday Tobacco 03/21/24 11:54 Tobacco use type Cigarette 03/21/24 11:54 e-Cigarette/Vaping Use Never Used 03/21/24 11:54 Thrive Assessment: Date of Thrive Assessment Date Thrive assessed 08/03/21 03/21/24 11:54 Const General: cooperative, comfortable and no acute distress Orientation/consciousness: patient oriented x3 HENMT Head: Yes normocephalic Eyes General: appearance normal, both eyes and all related structures Neck Neck: Yes supple Resp Effort & Inspection: no cough and no stridor Cardio Rhythm: regular rhythm Heart sounds: S1 normal heart sound present and S2 normal heart sound present Skin General skin exam: turgor normal Neuro General: patient oriented x3, tone normal and moves all extremities Extrem Right lower extremity: no edema Left lower extremity: no edema Assessment and Plan Assessment & Plan (1) Failure to thrive in adult: Code(s): R62.7 - Adult failure to thrive (2) Bipolar disorder: Code(s): F31.9 - Bipolar disorder, unspecified Qualifiers: Active/Remission status: in partial remission Most recent bipolar episode type: depressed Qualified Code(s): F31.75 - Bipolar disorder, in partial remission, most recent episode depressed (3) Memory change: Code(s): R41.3 - Other amnesia (4) Subdural hematoma: Code(s): S06.5XAA - Traumatic subdural hemorrhage with loss of consciousness status unknown, initial encounter (5) Smoker: Comment: Patient still smoking but has reduced to 10 cigarettes a day. Does not think that she can reduce it any further. Code(s): F17.200 - Nicotine dependence, unspecified, uncomplicated (6) EtOH dependence: Code(s): F10.20 - Alcohol dependence, uncomplicated Qualifiers: Substance use status: uncomplicated Qualified Code(s): F10.20 - Alcohol dependence, uncomplicated (7) Anorexia nervosa: Code(s): F50.00 - Anorexia nervosa, unspecified (8) Malnutrition: Code(s): E46 - Unspecified protein-calorie malnutrition Qualifiers: Malnutrition type: protein-calorie malnutrition Protein-calorie malnutrition severity: moderate Qualified Code(s): E44.0 - Moderate protein- calorie malnutrition (9) COPD (chronic obstructive pulmonary disease): Comment: Patient has advanced chronic obstructive pulmonary disease already, basically it is staying stable. Code(s): J44.9 - Chronic obstructive pulmonary disease, unspecified Qualifiers: COPD type: emphysema Emphysema type: panlobular Qualified Code(s): J43.1 - Panlobular emphysema Plan Patient is 59-year-old female with severe COPD, chronic smoker, alcoholism, protein malnutrition, comes to clinic recurrently She has a history of eczema around her ears Recently started seeing client success specialist [facility] Patient have memory deficit she had a visit with Neurology 01/02/2024 [facility] Neurology. Notes reviewed evaluation states Patient did well on MMSE with a score of 29/30 Memory loss and forgetfulness is more likely secondary to attention deficit disorder, depression and malnutrition. 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 We talked about the nutrition today I kept explaining to patient that it is important she stopped drinking soda and eating cup cakes It is important that she starts eating more protein, explained to her which foods have protein. 30 minutes spent [id number] with the patient, and extra 15 minutes to review the chart, neuro consultation MRI reports, charting and coordination of care Coding Level of Care Code Est Pt Level 5 (17497) Diagnoses Failure to thrive in adult R62.7 Bipolar disorder, in partial remission, most recent episode depressed F31.75 Active/Remission status: in partial remission Most recent bipolar episode type: depressed Memory change R41.3 Subdural hematoma S06.5XAA Smoker F17.200 Uncomplicated alcohol dependence F10.20 Substance use status: uncomplicated Anorexia nervosa F50.00 Moderate protein-calorie malnutrition E44.0 Malnutrition type: protein-calorie malnutrition Protein-calorie malnutrition severity: moderate Panlobular emphysema J43.1 COPD type: emphysema Emphysema type: panlobular
[2024-03-21 11:54] VITALS: BP 112/70; PULSE 72; O2SAT 96; BMI 14.7
== END 2024-03-21 16:10 | disposition home or self-care (01) ==
PROVIDERS: PCP Internal Medicine; Visit Provider Internal Medicine
DX: R62.7 Adult failure to thrive (principal); S06.5XAA Traumatic subdural hemorrhage with loss of consciousness status unknown, initial encounter; F31.75 Bipolar disorder, in partial remission, most recent episode depressed; F10.20 Alcohol dependence, uncomplicated; F50.00 Anorexia nervosa, unspecified; E44.0 Moderate protein-calorie malnutrition; J43.1 Panlobular emphysema; R41.3 Other amnesia; F17.200 Nicotine dependence, unspecified, uncomplicated
CPT/HCPCS: 99215

== ENCOUNTER 2024-04-15 10:58 | Outpatient (AMB) | payer MEDICARE, SELFPAY ==
[2024-04-15 11:07] VITALS: BP 110/70; PULSE 101; TEMP 36.6; O2SAT 96
--- NOTE | 2024-04-15 11:07 | AM.OFFWIN_ITS ---
Intake Vital Signs 3 04/15/24 11:07 Height 5 ft 3 in BP 110/70 Blood Pressure Location Rt brachial Position Sitting Pulse 101 H Pulse Source Pulse Oximeter Temp 97.9 F Temp Source Oral Pulse Oximetry (%) 96 Oxygen Delivery Method Room Air Intake Visit Reasons: EP Sore RT eye Intake Note: pt is here for sore rt eye Patient Tobacco Use Status: Current everyday Tobacco user Allergies No Known Allergies Allergy (Verified 04/15/24 11:08) Medication List - Last Reconciled 04/15/24 by Vito Beal MD albuterol sulfate 90 mcg/actuation 2 puffs inhalation Q4-6H PRN 30 days bisacodyl (Dulcolax (bisacodyl)) 10 mg (2 x 5 mg) PO BEDTIME 2 days doxylamine succinate (Unisom (doxylamine)) 25 mg PO BEDTIME PRN fluticasone propion-salmeterol 250-50 mcg/dose (Wixela Inhub) 1 inh inhalation BID 30 days fluticasone propionate 50 mcg/actuation (Allergy Relief (fluticasone)) 1 spray intranasal DAILY 30 days food supplemt, lactose-reduced (Ensure oral liquid) 1 ea PO QID hydrocortisone 1% 1 appl topical BID PRN hydrocortisone 2.5% (Proctosol HC) 1 appl [place] BID hydrocortisone-acetic acid 1-2 % 4 drps otic (ear) left TID 7 days hydroxyzine HCl 25 mg PO BEDTIME megestrol 40 mg PO DAILY 90 days metronidazole 0.75%(37.5mg/5gram) 1 appful vaginal DAILY 5 days quetiapine (Seroquel) 25 mg PO BEDTIME 90 days sertraline 50 mg PO DAILY tiotropium bromide (Spiriva with HandiHaler) 1 cap inhalation DAILY 30 days valacyclovir 500 mg PO ONCE 90 days Do you need a note to return to daycare/school/sports/work: No HPI EP Sore RT eye 2 HPI0 Details Right eye irritation since yesterday call so came in for evaluation Patient does not recall rubbing the eye. Vision is intact On examination she has slight conjunctival injection medial aspect I have sent in a forgot a eyedrops, patient was instructed to use cold compresses in between. [facility] Medical History Anal itching Vaginal discharge Colonoscopy refused Palpitation Colon cancer screening Nicotine dependence, cigarettes, uncomplicated Non-compliance Hospital discharge follow-up Smoker Anorexia nervosa Underweight Urinary urgency Eczema Mammogram declined Surgical History History of cervical biopsy History of tonsillectomy History of surgery on arm Family History Father Family history unknown Mother COPD (chronic obstructive pulmonary disease) Sister No problems noted. Sister COPD (chronic obstructive pulmonary disease) Social History Housing: House Alcohol intake: current Alcohol intake frequency: 0-2 drinks per day Patient Tobacco Use Status: Current everyday Tobacco user Tobacco use type: Cigarette Cigarettes Per Day: 10 Years Smoked: onset 13yo, 1ppd x 45yrs, now1/2ppd - 40pyh e-Cigarette/Vaping Use: Never Used Substance Use Type: Marijuana Current occupational status: disabled Sexual orientation: Straight/Heterosexual Gender identity: Female Cognitive needs: No Hearing needs: No Vision needs: No Review of Systems Const All systems reviewed & are unremarkable except as noted in HPI and below Physical Exam Vital Signs: Last Vital Signs Temp 97.9 F 04/15/24 11:07 Pulse 101 H 04/15/24 11:07 BP 110/70 04/15/24 11:07 Pulse Ox 96 04/15/24 11:07 Oxygen Delivery Method Room Air 04/15/24 11:07 Const General: no acute distress Orientation/consciousness: patient oriented x3 Eyes Eyes/upper lids images: 2 1. Slight redness medial aspect of right eye. Without any discharge, PERRL, EOMI Resp Effort & Inspection: normal respiratory effort and able to speak in complete sentences Auscultation: clear to auscultation bilaterally Cardio Other: S1 S2 Neuro General: patient oriented x3 Psych Mental Status: mental status grossly normal Assessment & Plan Assessment & Plan (1) Allergic conjunctivitis of right eye: Code(s): H10.11 - Acute atopic conjunctivitis, right eye Plan Right eye irritation since yesterday call so came in for evaluation Patient does not recall rubbing the eye. Vision is intact On examination she has slight conjunctival injection medial aspect I have sent in a forgot a eyedrops, patient was instructed to use cold compresses in between. Medications: New 2 naphazoline-pheniramine 0.025-0.3 % (Naphcon-A) 1 drp ophthalmic (eye) BID-QID PRN 15 mL 0RF Itchy eyes 30 days Coding Level of Care Code Est Pt Level 3 (52172) Diagnoses Allergic conjunctivitis of right eye H10.11
== END 2024-04-15 11:35 | disposition home or self-care (01) ==
PROVIDERS: PCP Internal Medicine; Visit Provider Internal Medicine
DX: H10.11 Acute atopic conjunctivitis, right eye (principal)
CPT/HCPCS: 99213

== ENCOUNTER 2024-04-16 13:32 | Outpatient (AMB) | payer MEDICARE, SELFPAY ==
--- NOTE | 2024-04-16 13:33 | A.OFFPC_ITS ---
Intake Visit Reasons: MRI results~ [phone] Allergies No Known Allergies Allergy (Verified 04/15/24 11:08) Medication List - Last Reconciled 04/16/24 by Vito Beal MD albuterol sulfate 90 mcg/actuation 2 puffs inhalation Q4-6H PRN 30 days bisacodyl (Dulcolax (bisacodyl)) 10 mg (2 x 5 mg) PO BEDTIME 2 days doxylamine succinate (Unisom (doxylamine)) 25 mg PO BEDTIME PRN fluticasone propion-salmeterol 250-50 mcg/dose (Wixela Inhub) 1 inh inhalation BID 30 days fluticasone propionate 50 mcg/actuation (Allergy Relief (fluticasone)) 1 spray intranasal DAILY 30 days food supplemt, lactose-reduced (Ensure oral liquid) 1 ea PO QID hydrocortisone 1% 1 appl topical BID PRN hydrocortisone 2.5% (Proctosol HC) 1 appl [place] BID hydrocortisone-acetic acid 1-2 % 4 drps otic (ear) left TID 7 days hydroxyzine HCl 25 mg PO BEDTIME megestrol 40 mg PO DAILY 90 days metronidazole 0.75%(37.5mg/5gram) 1 appful vaginal DAILY 5 days naphazoline-pheniramine 0.025-0.3 % (Naphcon-A) 1 drp ophthalmic (eye) BID-QID PRN 30 days quetiapine (Seroquel) 25 mg PO BEDTIME 90 days sertraline 50 mg PO DAILY tiotropium bromide (Spiriva with HandiHaler) 1 cap inhalation DAILY 30 days valacyclovir 500 mg PO ONCE 90 days Tobacco use date assessed: 12/21/23 Dental Screening Dental Screen Date: 12/21/23 HPI MRI results~ [phone] HPI Details Patient is 59-year-old female this is a telemedicine visit with patient and her daughter She has seen neurology for difficulty with memory She had MRI done earlier this year which showed 4 mm area of subarachnoid bleed Repeat MRI was ordered, and that showed Slight decrease in size of the trace subacute appearing subdural collection along the right parietal convexity which exerts no significant mass effect. There is no midline shift. - Global cerebral volume loss with a tem poral lobe predominant and mild chronic microangiopathy. - Advanced right-sided TMJ arthropathy. She has a follow-up appointment coming up with Neurology 02 of May to go over the report However patient was feeling very anxious so we book this appointment to discuss the MRI findings. Reassurance provided to both patient and her daughter. Daughter wanted to know why patient is not able to make new memory Explained to them that due to volume loss of her brain it is difficult for brain to register the new memory However to old memory is already stone and that is why she can still recall things. [facility] Medical History Anal itching Vaginal discharge Colonoscopy refused Palpitation Colon cancer screening Nicotine dependence, cigarettes, uncomplicated Non-compliance Hospital discharge follow-up Smoker Anorexia nervosa Underweight Urinary urgency Eczema Mammogram declined Surgical History History of cervical biopsy History of tonsillectomy History of surgery on arm Family History Father Family history unknown Mother COPD (chronic obstructive pulmonary disease) Sister No problems noted. Sister COPD (chronic obstructive pulmonary disease) Social History Housing: House Alcohol intake: current Alcohol intake frequency: 0-2 drinks per day Patient Tobacco Use Status: Current everyday Tobacco user Tobacco use type: Cigarette Cigarettes Per Day: 10 Years Smoked: onset 13yo, 1ppd x 45yrs, now1/2ppd - 40pyh e-Cigarette/Vaping Use: Never Used Substance Use Type: Marijuana Current occupational status: disabled Sexual orientation: Straight/Heterosexual Gender identity: Female Cognitive needs: No Hearing needs: No Vision needs: No Questionnaire Thrive Questionnaire Date Thrive assessed: 08/03/21 STEVE-7 AMB Questionnaire STEVE-7 Date STEVE - 7 assessed: 09/28/23 Source: Developed by Drs. Ganga Bauer, Brooklyn Benedict, Dionte Puente and colleagues, with an educational albert from [employer]. Review of Systems Const Denies chills and Denies fever(s) ENT Denies epistaxis and Denies nasal discharge Card Denies chest pain Resp Denies hemoptysis GI Denies diarrhea and Denies nausea Neuro Reports no additional complaints Psych Reports no additional complaints Endo Reports no additional complaints Physical exam (Primary Care) Tobacco/Smoking Status: Tobacco use Status Tobacco use date assessed 12/21/23 04/16/24 13:33 Patient Tobacco Use Status Current everyday Tobacco 04/16/24 13:33 Tobacco use type Cigarette 04/16/24 13:33 e-Cigarette/Vaping Use Never Used 04/16/24 13:33 Thrive Assessment: Date of Thrive Assessment Date Thrive assessed 08/03/21 04/16/24 13:33 Telehealth Telehealth Telehealth Platform: [facility] Location of provider rendering services: practice address Location of patient: address on file Patient Identification confirmed using: Name, : Yes Telehealth method: voice only Patient verbally consented to treatment: Yes Patient verbally consented to billing insurance company: Yes Patient informed of any privacy concerns related to visit: Yes Assessment and Plan Assessment & Plan (1) Subdural hematoma: Code(s): S06.5XAA - Traumatic subdural hemorrhage with loss of consciousness status unknown, initial encounter (2) Memory change: Code(s): R41.3 - Other amnesia Plan Patient is 59-year-old female this is a telemedicine visit with patient and her daughter She has seen neurology for difficulty with memory She had MRI done earlier this year which showed 4 mm area of subarachnoid bleed Repeat MRI was ordered, and that showed Slight decrease in size of the trace subacute appearing subdural collection along the right parietal convexity which exerts no significant mass effect. There is no midline shift. - Global cerebral volume loss with a temporal lobe predominant and mild chronic microangiopathy. - Advanced right-sided TMJ arthropathy. She has a follow-up appointment coming up with Neurology 02 of May to go over the report However patient was feeling very anxious so we book this appointment to discuss the MRI findings. Reassurance provided to both patient and her daughter. Daughter wanted to know why patient is not able to make new memory Explained to them that due to volume loss of her brain it is difficult for brain to register the new memory However to old memory is already stone and that is why she can still recall things. Coding Level of Care Code Tele Est Pt Level 3 (72631) Diagnoses Subdural hematoma S06.5XAA Memory change R41.3 Time Spent (min) 16
== END 2024-04-16 15:57 | disposition home or self-care (01) ==
LOC: HO.HMGC 13:32
PROVIDERS: PCP Internal Medicine; Visit Provider Internal Medicine
DX: S06.5XAA Traumatic subdural hemorrhage with loss of consciousness status unknown, initial encounter (principal); R41.3 Other amnesia
CPT/HCPCS: 99442

== ENCOUNTER 2024-04-21 15:08 | Outpatient (AMB) | payer MEDICARE, SELFPAY ==
[2024-04-21 15:14] VITALS: BP 106/60; PULSE 101; TEMP 36.6; O2SAT 94
--- NOTE | 2024-04-21 15:14 | MHC.OFFWIV ---
Intake Vital Signs 04/21/24 15:14 Height 5 ft 3 in BP 106/60 Blood Pressure Location Rt brachial Position Sitting Pulse 101 H Pulse Source Pulse Oximeter Temp 97.8 F Temp Source Oral Pulse Oximetry (%) 94 Oxygen Delivery Method Room Air Intake Visit Reasons: bump behind left Intake Note: pt is here for bump behind ear on left side Patient Tobacco Use Status: Current everyday Tobacco user Allergies No Known Allergies Allergy (Verified 04/15/24 11:08) HPI HPI Comments History of Present Illness Details Patient presents to the walk-in today for sick visit Reports bump behind left ear Recently treated with eardrops for any infection [facility] Medical History Anal itching Vaginal discharge Colonoscopy refused Palpitation Colon cancer screening Nicotine dependence, cigarettes, uncomplicated Non-compliance Hospital discharge follow-up Smoker Anorexia nervosa Underweight Urinary urgency Eczema Mammogram declined Surgical History History of cervical biopsy History of tonsillectomy History of surgery on arm Family History Father Family history unknown Mother COPD (chronic obstructive pulmonary disease) Sister No problems noted. Sister COPD (chronic obstructive pulmonary disease) Social History Housing: House Alcohol intake: current Alcohol intake frequency: 0-2 drinks per day Patient Tobacco Use Status: Current everyday Tobacco user Tobacco use type: Cigarette Cigarettes Per Day: 10 Years Smoked: onset 13yo, 1ppd x 45yrs, now1/2ppd - 40pyh e-Cigarette/Vaping Use: Never Used Substance Use Type: Marijuana Current occupational status: disabled Sexual orientation: Straight/Heterosexual Gender identity: Female Cognitive needs: No Hearing needs: No Vision needs: No Review of Systems Const All systems reviewed & are unremarkable except as noted in HPI and below Physical Exam Vital Signs: Last Vital Signs Temp 97.8 F 04/21/24 15:14 Pulse 101 H 04/21/24 15:14 BP 106/60 04/21/24 15:14 Pulse Ox 94 04/21/24 15:14 Oxygen Delivery Method Room Air 04/21/24 15:14 General: awake, alert. Answers questions appropriately. Fully engaged in examination. Skin: warm, dry, intact. Slightly enlarged left-sided post auricular lymph node HEENT: Normocephalic. Hearing intact. Cardiac: External chest normal in appearance. Respiratory: No cough, audible wheezing or stridor. Abdomen: without gross distension. MS: No obvious swelling or deformities. Neurological: Oriented to person, place, time and situation. Thought process intact. No gait abnormalities appreciated. Psychiatric: Appropriate mood and affect. Good judgment and insight. Assessment & Plan Assessment & Plan (1) Lymphadenopathy: Code(s): R59.1 - Generalized enlarged lymph nodes Plan Slightly enlarged post auricular lymph node on the left. Patient recently treated with eardrops for a left ear infection. Reassurance provided. Patient advised to monitor the size of the lymph node, recommend follow up with PCP if the lymph node continues to enlarge or swelling does not resolve over the next couple of weeks. Follow up with PCP or return here for any new or worsening symptoms Coding Level of Care Code Est Pt Level 3 (84006) Diagnoses Lymphadenopathy R59.1
== END 2024-04-21 16:02 | disposition home or self-care (01) ==
PROVIDERS: PCP Internal Medicine; Visit Provider Registered Nurse Emergency
DX: R59.1 Generalized enlarged lymph nodes (principal)
CPT/HCPCS: 99213

== ENCOUNTER 2024-04-22 14:02 | Outpatient (AMB) | payer MEDICARE, SELFPAY ==
[2024-04-22 14:28] VITALS: BP 120/66; PULSE 97; O2SAT 95; BMI 14.2
--- NOTE | 2024-04-22 14:28 | MHC.OFFWIV ---
Intake Vital Signs 04/22/24 14:28 Height 5 ft 3 in Weight 80 lb BMI 14.2 BP 120/66 Blood Pressure Location Lt brachial Position Sitting Pulse 97 Pulse Source Pulse Oximeter Pulse Oximetry (%) 95 Oxygen Delivery Method Room Air Intake Visit Reasons: EP labored breathing Patient Tobacco Use Status: Current everyday Tobacco user Allergies No Known Allergies Allergy (Verified 04/22/24 14:33) Do you need a note to return to daycare/school/sports/work: No HPI HPI Comments History of Present Illness Details 59-year-old female presents today complaining of continued shortness of breath which is not new but she has requesting a refill of her Advair. She was also very concerned about the results of a recent MRI and will follow up with her PCP regarding the results [facility] Medical History Anal itching Vaginal discharge Colonoscopy refused Palpitation Colon cancer screening Nicotine dependence, cigarettes, uncomplicated Non-compliance Hospital discharge follow-up Smoker Anorexia nervosa Underweight Urinary urgency Eczema Mammogram declined Surgical History History of cervical biopsy History of tonsillectomy History of surgery on arm Family History Father Family history unknown Mother COPD (chronic obstructive pulmonary disease) Sister No problems noted. Sister COPD (chronic obstructive pulmonary disease) Social History Housing: House Alcohol intake: current Alcohol intake frequency: 0-2 drinks per day Patient Tobacco Use Status: Current everyday Tobacco user Tobacco use type: Cigarette Cigarettes Per Day: 10 Years Smoked: onset 13yo, 1ppd x 45yrs, now1/2ppd - 40pyh e-Cigarette/Vaping Use: Never Used Substance Use Type: Marijuana Current occupational status: disabled Sexual orientation: Straight/Heterosexual Gender identity: Female Cognitive needs: No Hearing needs: No Vision needs: No Review of Systems Const All systems reviewed & are unremarkable except as noted in HPI and below Eyes Reports no additional complaints ENT Reports no additional complaints Card Reports no additional complaints and Reports dyspnea Resp Reports dyspnea GI Reports no additional complaints Reports no additional complaints Physical Exam Vital Signs: Last Vital Signs Pulse 97 06/25/24 14:28 BP 120/66 04/22/24 14:28 Pulse Ox 95 04/22/24 14:28 Oxygen Delivery Method Room Air 04/22/24 14:28 BMI result Body Mass Index 14.2 Const Nutritional Appearance: thin and underweight HEENT Head: Yes normal to inspection, Yes normocephalic and Yes atraumatic Ears: hearing grossly normal bilaterally General nose exam: Normal external nose present Face and sinus: Yes normal facial exam Throat: Yes posterior oropharynx normal Resp Effort & Inspection: decreased respiratory effort Auscultation: clear to auscultation bilaterally and diminished lung sounds Cardio Rate: regular rate Rhythm: regular rhythm Assessment & Plan Assessment & Plan (1) COPD (chronic obstructive pulmonary disease): Comment: Patient has advanced chronic obstructive pulmonary disease already, basically it is staying stable. Code(s): J44.9 - Chronic obstructive pulmonary disease, unspecified Qualifiers: COPD type: emphysema Emphysema type: panlobular Qualified Code(s): J43.1 - Panlobular emphysema Plan: The patient will continue to try smoking cessation. A refill her Advair was sent to her pharmacy as requested Plan See plan Medications: Refilled fluticasone propion-salmeterol 250-50 mcg/dose (Wixela Inhub) 1 inh inhalation BID 30 days 60 ea 5RF copd Coding Level of Care Code Est Pt Level 3 (81253) Diagnoses Panlobular emphysema J43.1 COPD type: emphysema Emphysema type: panlobular
== END 2024-04-22 15:12 | disposition home or self-care (01) ==
PROVIDERS: PCP Internal Medicine; Visit Provider Physician Assistant Medical
DX: J43.1 Panlobular emphysema (principal)
CPT/HCPCS: 99213

== ENCOUNTER 2024-05-02 12:52 | Outpatient (AMB) | payer MEDICARE, SELFPAY ==
--- NOTE | 2024-05-02 13:00 | A.OFFVIS_ITS ---
Vital Signs 05/02/24 13:04 Height 5 ft 3 in Weight 79 lb 6 oz BMI 14.1 BP 115/62 Blood Pressure Location Lt brachial Position Sitting Pulse 92 Pulse Source Pulse Oximeter Pulse Oximetry (%) 95 Oxygen Delivery Method Room Air Intake Visit Reasons: 4 mo f/u-CONF Intake Note: Patient presents for 4 months f/u. Would like to go over MRI results Allergies No Known Allergies Allergy (Verified 05/13/24 13:49) Medication List - Last Reconciled 05/02/24 by JUAN J Akers albuterol sulfate 90 mcg/actuation 2 puffs inhalation Q4-6H PRN 30 days bisacodyl (Dulcolax (bisacodyl)) 10 mg (2 x 5 mg) PO BEDTIME 2 days doxylamine succinate (Unisom (doxylamine)) 25 mg PO BEDTIME PRN fluticasone propion-salmeterol 250-50 mcg/dose (Wixela Inhub) 1 inh inhalation BID 30 days fluticasone propionate 50 mcg/actuation (Allergy Relief (fluticasone)) 1 spray intranasal DAILY 30 days food supplemt, lactose-reduced (Ensure oral liquid) 1 ea PO QID hydrocortisone 1% 1 appl topical BID PRN hydrocortisone 2.5% (Proctosol HC) 1 appl [place] BID hydrocortisone-acetic acid 1-2 % 4 drps otic (ear) left TID 7 days hydroxyzine HCl 25 mg PO BEDTIME megestrol 40 mg PO DAILY 90 days metronidazole 0.75%(37.5mg/5gram) 1 appful vaginal DAILY 5 days naphazoline-pheniramine 0.025-0.3 % (Naphcon-A) 1 drp ophthalmic (eye) BID-QID PRN 30 days quetiapine (Seroquel) 25 mg PO BEDTIME 90 days sertraline 50 mg PO DAILY tiotropium bromide (Spiriva with HandiHaler) 1 cap inhalation DAILY 30 days valacyclovir 500 mg PO ONCE 90 days HPI Comments Details: 59-yr-old female presents for f/u visit of cognitive difficulties. Pt is acco mpanied by her dtr Cuca. Pt was previously seen by Ria Hoover NP. Pt denies any significant interval medical changes. Pt continues to have STM lapses. Pt may forget appointments, or what was told to her during an appointment. She pays her own bills. Last month did question if she had paid a bill or not- may pay some with fox. Dtr is concerned about pt's intake. Pt is not concerned- states she eats a banana w/ an Ensure for breakfast, eats a coding tech cupcake for lunch, does snack on candy, has another Ensure w/ hamburger helper or shepards pie type meal for dinner, and may snack on Doritos in the evening. Takes 1 cup of alcoholic drink in the evening- OJ/juice and vodka- in a large reusable cup- states does not always finish it. She endorses SOB on exertion- climbing the stairs. She denies usual headaches, dizziness, gait changes, falls. Dtr expresses concern that she has not been updated with the results of the interval work-up. Her interval lab work-up was notable for low normal vit D. Her initial brain MRI showed a 4 mm subacute appearing right parietal subdural hematoma without significant mass effect on the subjacent brain parenchyma. Pt denies hitting her head or falling prior to the MRI. She then underwent f/u brain MRI which showed slight decrease in the right parietal subdural hematoma. Orders were placed by Hoover PITCH GATHERER to have f/u labs, CBC/CMP, coag studies, however pt does not recall being asked to have these labs done. 03/17/24, MR/MR head/brain wo/w con IMPRESSION: - Slight decrease in size of the trace subacute appearing subdural collection along the right parietal convexity which exerts no significant mass effect. There is no midline shift. - Global cerebral volume loss with a temporal lobe predominant and mild chronic microangiopathy. - Advanced right-sided TMJ arthropathy. 01/31/24, MR/MR head/brain wo con IMPRESSION: 1. 4 mm subacute appearing right parietal subdural hematoma without significant mass effect on the subjacent brain parenchyma. 2. Mild global cerebral volume loss and mild chronic microangiopathy. 3. Asymmetric advanced right TMJ osteoarthrosis. [facility], [facility] Medical History Anal itching Vaginal discharge Colonoscopy refused Palpitation Colon cancer screening Nicotine dependence, cigarettes, uncomplicated Non-compliance Hospital discharge follow-up Smoker Anorexia nervosa Underweight Urinary urgency Eczema Mammogram declined Surgical History History of cervical biopsy History of tonsillectomy History of surgery on arm Family History Father Family history unknown Mother COPD (chronic obstructive pulmonary disease) Sister No problems noted. Sister COPD (chronic obstructive pulmonary disease) Social History Housing: House Alcohol intake: current Alcohol intake frequency: 0-2 drinks per day Patient Tobacco Use Status: Current everyday Tobacco user Tobacco use type: Cigarette Cigarettes Per Day: 10 Years Smoked: onset 13yo, 1ppd x 45yrs, now1/2ppd - 40pyh e-Cigarette/Vaping Use: Never Used Substance Use Type: Marijuana Current occupational status: disabled Sexual orientation: Straight/Heterosexual Gender identity: Female Cognitive needs: No Hearing needs: No Vision needs: No Review of Systems Const All systems reviewed & are unremarkable except as noted in HPI and below Physical Exam Vital Signs: Last Vital Signs Pulse 92 05/02/24 13:04 BP 115/62 05/02/24 13:04 Pulse Ox 95 05/02/24 13:04 Oxygen Delivery Method Room Air 05/02/24 13:04 BMI result Body Mass Index 14.1 Const General: cooperative and no acute distress Nutritional Appearance: thin Orientation/consciousness: patient oriented x3 HEENT Head: Yes normocephalic Resp Effort & Inspection: normal respiratory effort and able to speak in complete sentences Neuro Other: A&O w/ STM lapses. General: patient oriented x3, gait normal and CN's II-XI intact bilaterally Cognition (Neuro): normal cognition Motor exam (neuro): 5/5 motor strength present throughout Psych Appearance: grossly normal Mental Status: mental status grossly normal Speech and movement: Normal speech and movement present Affect: normal affect Attitude: cooperative Thought process: Normal thought process present Thought content: Normal thought content present Insight: Good insight present (Psych) Judgement: Good judgement present (Psych) Assessment & Plan Assessment & Plan (1) Short-term memory loss: Code(s): R41.3 - Other amnesia Category: Medical (2) Subdural hematoma: Code(s): S06.5XAA - Traumatic subdural hemorrhage with loss of consciousness status unknown, initial encounter Category: Medical (3) Failure to thrive in adult: Code(s): R62.7 - Adult failure to thrive Category: Medical Plan Reviewed brain MRI reports- January MRI showed 4 mm subacute appearing right parietal subdural hematoma without significant mass effect and f/u barin MRI in February showed decrease in size of the subdural hematoma. The Brain MRIs also showed mild temporal lobe predominant global cerebral volume loss and mild chronic microangiopathy. Pt denies any history of head trauma prior to the above MRI. Check co-ag studies as ordered. Reviewed interval labs- notable for low normal Vit D. Will supplement Vit D. Due to chronic poor intake, will check additional labs for nutritional deficiencies that may be contributing to pt's cognitive s/s. Also discussed simple strategies to improve nutritional intake- small meals, high calorie/protein snacks. Will order comprehensive neuropsych eval to determine extent/pattern of cognitive deficits. Orders: Orders Vitamin B12 05/02/24 R41.3 - Other amnesia, S06.5XAA - Traumatic subdural hemorrhage with loss of consciousness status unknown, initial encounter, R62.7 - Adult failure to thrive, R53.83 - Other fatigue, R06.02 - Shortness of breath Vitamin B5 (Pantothenic Acid) 05/02/24 R41.3 - Other amnesia, S06.5XAA - Traumatic subdural hemorrhage with loss of consciousness status unknown, initial encounter, R62.7 - Adult failure to thrive, R53.83 - Other fatigue, R06.02 - Shortness of breath Vitamin B6 05/02/24 R41.3 - Other amnesia, S06.5XAA - Traumatic subdural hemorrhage with loss of consciousness status unknown, initial encounter, R62.7 - Adult failure to thrive, R53.83 - Other fatigue, R06.02 - Shortness of breath Vitamin A 05/02/24 R41.3 - Other amnesia, S06.5XAA - Traumatic subdural hemorrhage with loss of consciousness status unknown, initial encounter, R62.7 - Adult failure to thrive, R53.83 - Other fatigue, R06.02 - Shortness of breath Vitamin C 05/02/24 R41.3 - Other amnesia, S06.5XAA - Traumatic subdural hemorrhage with loss of consciousness status unknown, initial encounter, R62.7 - Adult failure to thrive, R53.83 - Other fatigue, R06.02 - Shortness of breath Vitamin E 05/02/24 R41.3 - Other amnesia, S06.5XAA - Traumatic subdural hemorrhage with loss of consciousness status unknown, initial encounter, R62.7 - Adult failure to thrive, R53.83 - Other fatigue, R06.02 - Shortness of breath Vitamin K1 05/02/24 R41.3 - Other amnesia, S06.5XAA - Traumatic subdural hemorrhage with loss of consciousness status unknown, initial encounter, R62.7 - Adult failure to thrive, R53.83 - Other fatigue, R06.02 - Shortness of breath Zinc 05/02/24 R41.3 - Other amnesia, S06.5XAA - Traumatic subdural hemorrhage with loss of consciousness status unknown, initial encounter, R62.7 - Adult failure to thrive, R53.83 - Other fatigue, R06.02 - Shortness of breath Syphilis Screen 05/02/24 R41.3 - Other amnesia Complete Blood Count Auto Diff 05/02/24 S06.5XAA - Traumatic subdural hemorrhage with loss of consciousness status unknown, initial encounter, R41.3 - Other amnesia, R62.7 - Adult failure to thrive, R53.83 - Other fatigue, R06.02 - Shortness of breath Comprehensive Met. Panel 05/02/24 S06.5XAA - Traumatic subdural hemorrhage with loss of consciousness status unknown, initial encounter, R41.3 - Other amnesia, R62.7 - Adult failure to thrive, R53.83 - Other fatigue, R06.02 - Shortness of breath Mixing Study (PT/PTT) 05/02/24 S06.5XAA - Traumatic subdural hemorrhage with loss of consciousness status unknown, initial encounter, R41.3 - Other amnesia, R62.7 - Adult failure to thrive, R53.83 - Other fatigue, R06.02 - Shortness of breath Prothrombin Time INR 05/02/24 S06.5XAA - Traumatic subdural hemorrhage with loss of consciousness status unknown, initial encounter, R41.3 - Other amnesia, R62.7 - Adult failure to thrive, R53.83 - Other fatigue, R06.02 - Shortness of breath Vitamin B1 05/02/24 R41.3 - Other amnesia, S06.5XAA - Traumatic subdural hemorrhage with loss of consciousness status unknown, initial encounter, R62.7 - Adult failure to thrive, R53.83 - Other fatigue, R06.02 - Shortness of breath Vitamin B2 (Riboflavin) 05/02/24 R41.3 - Other amnesia, S06.5XAA - Traumatic subdural hemorrhage with loss of consciousness status unknown, initial encounter, R62.7 - Adult failure to thrive, R53.83 - Other fatigue, R06.02 - Shortness of breath Vitamin B3 (Niacin) 05/02/24 R41.3 - Other amnesia, S06.5XAA - Traumatic subdural hemorrhage with loss of consciousness status unknown, initial encounter, R62.7 - Adult failure to thrive, R53.83 - Other fatigue, R06.02 - Shortness of breath Referrals Neuropsychiatry Referral R41.3 - Other amnesia Medications: New cholecalciferol (vitamin D3) 25 mcg PO DAILY 30 caps 3RF 30 days Coding Level of Care Code Est Pt Level 4 (30767) Diagnoses Short-term memory loss R41.3 Subdural hematoma S06.5XAA Failure to thrive in adult R62.7
[2024-05-02 13:04] VITALS: BP 115/62; PULSE 92; O2SAT 95; BMI 14.1
== END 2024-05-02 14:04 | disposition home or self-care (01) ==
PROVIDERS: PCP Internal Medicine; Visit Provider Nurse Practitioner Family
DX: R41.3 Other amnesia (principal); S06.5XAA Traumatic subdural hemorrhage with loss of consciousness status unknown, initial encounter; R62.7 Adult failure to thrive
CPT/HCPCS: 99214

== ENCOUNTER → 2024-05-02 12:52 | Outpatient (BNVA) | payer MEDICARE, SELFPAY | PROVIDERS: PCP Internal Medicine; Visit Provider Nurse Practitioner Family | DX: R41.3 Other amnesia (principal); S06.5XAD Traumatic subdural hemorrhage with loss of consciousness status unknown, subsequent encounter; R62.7 Adult failure to thrive | CPT/HCPCS: 99212 ==

== ENCOUNTER 2024-05-13 13:34 | Outpatient (AMB) | payer MEDICARE, SELFPAY ==
--- NOTE | 2024-05-13 13:48 | MHC.OFFWIV ---
Intake Vital Signs 05/13/24 13:49 Height 5 ft 3 in Weight 80 lb 4 oz BMI 14.2 BP 100/60 Blood Pressure Location Lt brachial Position Sitting Pulse 93 Pulse Source Pulse Oximeter Pulse Oximetry (%) 94 Oxygen Delivery Method Room Air Intake Visit Reasons: EP something in nostrils Intake Note: pt is here for something in nostrils Patient Tobacco Use Status: Current everyday Tobacco user Allergies No Known Allergies Allergy (Verified 05/13/24 13:49) Do you need a note to return to daycare/school/sports/work: No HPI HPI Comments History of Present Illness Details This is a 59-year-old female presenting for evaluation of a runny nose and left ear pain. Patient states she noted both symptoms this morning upon waking. She denies having any fevers, chills, right ear pain, sore throat, cough or shortness for breath. She has not taken any medication for treatment of her symptoms. Of note, upon introduction the patient states ...you know, I really don't remember why I came in today. [facility] Medical History Anal itching Vaginal discharge Colonoscopy refused Palpitation Colon cancer screening Nicotine dependence, cigarettes, uncomplicated Non-compliance Hospital discharge follow-up Smoker Anorexia nervosa Underweight Urinary urgency Eczema Mammogram declined Surgical History History of cervical biopsy History of tonsillectomy History of surgery on arm Family History Father Family history unknown Mother COPD (chronic obstructive pulmonary disease) Sister No problems noted. Sister COPD (chronic obstructive pulmonary disease) Social History Housing: House Alcohol intake: current Alcohol intake frequency: 0-2 drinks per day Patient Tobacco Use Status: Current everyday Tobacco user Tobacco use type: Cigarette Cigarettes Per Day: 10 Years Smoked: onset 13yo, 1ppd x 45yrs, now1/2ppd - 40pyh e-Cigarette/Vaping Use: Never Used Substance Use Type: Marijuana Current occupational status: disabled Sexual orientation: Straight/Heterosexual Gender identity: Female Cognitive needs: No Hearing needs: No Vision needs: No Review of Systems Const All systems reviewed & are unremarkable except as noted in HPI and below Eyes Reports no additional complaints ENT Reports as per HPI, Reports otalgia (left ear), Reports nasal discharge, Denies sinus pressure and Denies sore throat Card Reports no additional complaints and Denies dyspnea Resp Reports no additional complaints, Denies cough and Denies dyspnea GI Reports no additional complaints Reports no additional complaints Skin/Breast Reports system reviewed and no additional complaints, except as documented Neuro Reports no additional complaints Psych Reports no additional complaints Bipin/Lymph Reports no additional complaints Physical Exam Vital Signs: Last Vital Signs Pulse 93 05/13/24 13:49 BP 100/60 05/13/24 13:49 Pulse Ox 94 05/13/24 13:49 Oxygen Delivery Method Room Air 05/13/24 13:49 BMI result Body Mass Index 14.2 Const General: cooperative, alert, awake and Physically active Nutritional Appearance: underweight Orientation/consciousness: patient oriented x3 Limitations: other limitations (memory loss) HEENT Head: Yes normal to inspection Ears: hearing grossly normal bilaterally, external ears abnormal (left ear surface abrasion tomasa, no bleeding or discharge), TM's normal bilaterally and EAC's normal General nose exam: Normal external nose present, Normal nares present, Normal nasal mucous membranes and turbinates present, Normal septum present, No nasal discharge present and no foreign body in nares Face and sinus: Yes normal facial exam Mouth: Normal oral and palatal mucosa present and moist mucous membranes Throat: Yes posterior oropharynx normal Eyes General: appearance normal, both eyes and all related structures Visual Pfeiffer: normal visual pfeiffer by confrontation Alignment and Position: alignment normal Periorbital: periorbital findings normal Eyelids: Yes eyelids normal Conjunctivae: conjunctivae normal Sclerae: sclerae normal Pupils: Equal, round and reactive pupils present EOM: EOMs intact bilaterally Direct Ophthalmoscopy: no photophobia Neck Lymphatic: no lymphadenopathy noted Neuro General: patient oriented x3 Cranial nerves: Yes Equal, round and reactive pupils present Psych Appearance: disheveled Mental Status: mental status grossly normal Speech and movement: Normal speech and movement present Affect: Anxious affect present Attitude: cooperative Thought process: Other thought process findings present (struggles with details of HPI) Insight: Fair insight present (Psych) Assessment & Plan Assessment & Plan (1) Abrasion of left ear: Comment: There is no evidence of an otitis externa or media. Code(s): S00.412A - Abrasion of left ear, initial encounter Qualifiers: Encounter type: initial encounter Qualified Code(s): S00.412A - Abrasion of left ear, initial encounter Plan: Triple antibiotic ointment twice daily to the left ear for the next 5-7 days. Coding Level of Care Code Est Pt Level 3 (82996) Diagnoses Abrasion of left ear, initial encounter S00.412A Encounter type: initial encounter Time Spent (min) 20
[2024-05-13 13:49] VITALS: BP 100/60; PULSE 93; O2SAT 94; BMI 14.2
== END 2024-05-13 14:14 | disposition home or self-care (01) ==
PROVIDERS: PCP Internal Medicine; Visit Provider Physician Assistant
DX: S00.412A Abrasion of left ear, initial encounter (principal)
CPT/HCPCS: 99213

== ENCOUNTER 2024-06-10 12:41 | Outpatient (REF) | payer MEDICARE, SELFPAY ==
[2024-06-10 16:26] LABS: MANUAL DIFF FLAG NO
[2024-06-10 16:29] LABS: Basophils Percent Auto 0.4 % (0-2); Eosinophils Absolute Auto 0.2 X10*3/uL (0.0-0.4); Eosinophils Percent Auto 1.7 % (0-4); Hematocrit 39.4 % (37.0-47.0); Hemoglobin 12.9 g/dl (12.0-16.0); Imm Gran Abs Auto 0.02 X10*3/uL (0.00-0.03); Imm Gran Pct Auto 0.2 % (0.0-0.4); Lymphocytes Absolute Auto 1.3 X10*3/uL (1.2-4.9); Lymphocytes Percent Auto 14.3 % (20-40); Mean Corpuscular HGB Conc 32.7 g/dl (31.0-35.0); Mean Corpuscular Hemoglobin 31.5 pg (27.0-33.0); Mean Corpuscular Volume 96.3 fL (80.0-98.0); Mean Platelet Volume 9.7 fL (9.4-12.3); Monocytes Absolute Auto 0.5 X10*3/uL (0.1-1.2); Neutrophils Absolute Auto 7.1 x10*3/uL (2.0-8.3); Neutrophils Percent Auto 78.4 % (45-73); Platelet Count 379 X10*3/uL (160-400); Red Blood Count 4.09 X10*6/uL (4.20-5.50); Red Cell Distribution Width 12.1 % (11.0-16.0); White Blood Count 9.1 X10*3/uL (4.8-10.8)
[2024-06-10 16:35] LABS: Prothrombin Time 12.3 SEC (11.1-13.3)
[2024-06-10 16:44] LABS: Partial Thromboplastin Time 30.9 SEC (26.0-36.8)
[2024-06-10 17:00] LABS: Alanine Aminotransferase 13 U/L (0-31); Albumin Level 4.2 g/dL (3.5-5.0); Alkaline Phosphatase 36 U/L (39-117); Anion Gap 13 (12-20); Aspartate Amino Transferase 16 U/L (5-31); Bilirubin Total 0.3 mg/dL (0.0-1.0); Blood Urea Nitrogen 7 mg/dL (9-16); Calcium 9.7 mg/dL (8.4-10.2); Carbon Dioxide 32 mmol/L (22-29); Chloride 100 mmol/L (96-108); Estimated Glomerular Filt Rate > 60; Glucose Random 123 mg/dL (60-115); Potassium 3.5 mmol/L (3.3-5.1); Sodium 141 mmol/L (135-145); Total Protein 7.8 g/dL (6.5-8.0)
[2024-06-10 17:28] LABS: Vitamin B12 1200 pg/mL (200-900)
[2024-06-11 08:18] LABS: Syphilis Screen Nonreactive (Nonreactive)
[2024-06-14 16:53] LABS: Vitamin A 30 mcg/dL (38-98)
[2024-06-14 23:14] LABS: Beta-Gamma Tocopherol <1.0 mg/L (<=4.3)
[2024-06-16 11:58] LABS: Vitamin B6 19.1 ng/mL (2.1-21.7)
[2024-06-16 12:42] LABS: Vitamin B2 (Riboflavin) 18.3 nmol/L (6.2-39.0); Vitamin B5 (Pantothenic Acid) 44 ng/mL (<275)
[2024-06-16 12:43] LABS: Nicotinamide <20 ng/mL (see note); Vit B3 - Nicotinic Acid <20 ng/mL (see note)
[2024-06-17 06:43] LABS: Vitamin C 1.1 mg/dL (0.3-2.7)
[2024-06-18 05:41] LABS: Zinc 63 mcg/dL (60-130)
[2024-06-18 17:42] LABS: Vitamin K1 430 pg/mL (130-1500)
[2024-06-21 13:48] LABS: Vitamin B1 23 nmol/L (8-30)
== END 2024-06-10 12:42 | disposition home or self-care (01) ==
LOC: HO.HMGCLDS 12:41
PROVIDERS: PCP Internal Medicine; Visit Provider Nurse Practitioner Family
DX: S06.5XAA Traumatic subdural hemorrhage with loss of consciousness status unknown, initial encounter (principal); R41.3 Other amnesia; R62.7 Adult failure to thrive; R53.83 Other fatigue; R06.02 Shortness of breath
CPT/HCPCS: 36415; 80053; 82180; 82607; 84207; 84252; 84425; 84446; 84590; 84591; 84597; 84630; 85025; 85610; 85730; 86780

== ENCOUNTER 2024-06-11 15:46 | Outpatient (AMB) | payer MEDICARE, SELFPAY ==
--- NOTE | 2024-06-11 15:53 | MHC.OFFWIV ---
Intake Vital Signs 06/11/24 15:54 Height 5 ft 3 in Weight 79 lb BMI 14.0 BP 118/74 Blood Pressure Location Rt brachial Position Sitting Pulse 99 Pulse Source Pulse Oximeter Temp 98.5 F Temp Source Oral Pulse Oximetry (%) 90 L Oxygen Delivery Method Room Air Intake Visit Reasons: EP- RT ankle rash, 6mnths Intake Note: pt c/o RT ankle rash x 6 months Patient Tobacco Use Status: Current everyday Tobacco user Allergies No Known Allergies Allergy (Verified 06/11/24 15:54) Do you need a note to return to daycare/school/sports/work: No HPI EP- RT ankle rash, 6mnths HPI Details This note is constructed using voice recognition software. While every effort has been made to ensure accuracy, manager marketing communications errors may have been included. The patient is a 59 year old female who presents to the clinic today with complaint of rash for the past 6 months to her right ankle. She notes she has been treated for this in the past with hydrocortisone, it does not help completely and she continues to itch the area. She has itch the area to the point that she has some opening and drainage on her sock. She denies warmth, fever, chills. [facility] Medical History Anal itching Vaginal discharge Colonoscopy refused Palpitation Colon cancer screening Nicotine dependence, cigarettes, uncomplicated Non-compliance Hospital discharge follow-up Smoker Anorexia nervosa Underweight Urinary urgency Eczema Mammogram declined Surgical History History of cervical biopsy History of tonsillectomy History of surgery on arm Family History Father Family history unknown Mother COPD (chronic obstructive pulmonary disease) Sister No problems noted. Sister COPD (chronic obstructive pulmonary disease) Social History Housing: House Alcohol intake: current Alcohol intake frequency: 0-2 drinks per day Patient Tobacco Use Status: Current everyday Tobacco user Tobacco use type: Cigarette Cigarettes Per Day: 10 Years Smoked: onset 13yo, 1ppd x 43yrs, now1/2ppd - 40pyh e-Cigarette/Vaping Use: Never Used Substance Use Type: Marijuana Current occupational status: disabled Sexual orientation: Straight/Heterosexual Gender identity: Female Cognitive needs: No Hearing needs: No Vision needs: No Review of Systems Const All systems reviewed & are unremarkable except as noted in HPI and below Physical Exam Vital Signs: Last Vital Signs Temp 98.5 F 06/11/24 15:54 Pulse 99 06/11/24 15:54 BP 118/74 06/11/24 15:54 Pulse Ox 90 L 06/11/24 15:54 Oxygen Delivery Method Room Air 06/11/24 15:54 BMI result Body Mass Index 14.0 Const General: cooperative, healthy appearing, comfortable and no acute distress Orientation/consciousness: patient oriented x3 Limitations: no limitations HEENT Head: Yes normal to inspection Eyes General: appearance normal, both eyes and all related structures Resp Effort & Inspection: normal respiratory effort and able to speak in complete sentences Skin Other: Area of excoriation over eczematous skin to the right ankle lateral aspect. Neuro General: patient oriented x3 Assessment & Plan Assessment & Plan (1) Eczema: Code(s): L30.9 - Dermatitis, unspecified Qualifiers: Eczema type: other Qualified Code(s): L30.8 - Other specified dermatitis Plan: Given patient's previous response to hydrocortisone, we will send a slightly stronger steroid cream. Advised patient to avoid scratching as this could lead to infection, there are no current signs of secondary bacterial infection. Plan See above for full details and plan. Medications: New mometasone 0.1% 1 appl topical DAILY PRN 15 grams 0RF skin irritation Coding Level of Care Code Est Pt Level 3 (51965) Diagnoses Other eczema L30.8 Eczema type: other
[2024-06-11 15:54] VITALS: BP 118/74; PULSE 99; TEMP 36.9; O2SAT 90; BMI 14.0
== END 2024-06-11 16:25 | disposition home or self-care (01) ==
PROVIDERS: PCP Internal Medicine; Visit Provider Registered Nurse
DX: L30.8 Other specified dermatitis (principal)
CPT/HCPCS: 99213

== ENCOUNTER 2024-07-14 18:12 | Inpatient (IN) | payer MEDICARE, SELFPAY ==
--- NOTE | ~2024-07-14 | XR_ITS ---
EXAMINATION: XR CHEST CLINICAL INFORMATION: Shortness of breath. COMPARISON: Chest radiograph dated 09/14/2023. TECHNIQUE: Frontal view of the chest was obtained. FINDINGS: The heart is normal in size. The lungs appear somewhat hyperinflated. There is flattening of the diaphragm. There are increased interstitial markings at the lung bases, similar to the prior examination. No new consolidative process. No pleural effusion or pneumothorax. There are degenerative changes of the spine. No acute osseous abnormality. XR/XR chest 1V IMPRESSION: No acute cardiopulmonary disease. Findings suggestive of chronic obstructive pulmonary disease. Electronically signed by: Kirit Kim DO 07/14/2024 08:42 PM EDT
[2024-07-14 18:28] VITALS: BP 128/81; BP 129/84; PULSE 85; PULSE 93; RESP 28; TEMP 36.9; O2SAT 95; O2SAT 97; BMI 17.2
--- NOTE | 2024-07-14 18:32 | ED_ITS ---
HPI - SOB/Dyspnea General Chief Complaint: Dyspnea Stated Complaint: SOB, hx COPD, coming from urgent care Time Seen by Provider: 07/14/24 18:25 Source: patient Mode of arrival: EMS Limitations: no limitations History of Present Illness ED Provider: merari FERRARA Narrative: Patient is smoker with emphysema comes here for increased shortness of breath sent from urgent care as she was saturating 84% at room air patient has been using albuterol and Advair still smokes about 10 cigarettes a day does have chronic cough no fever no chills Related Data Home Medications ?Medication ?Instructions ?Recorded ?Confirmed doxylamine succinate 25 mg tablet 25 mg PO BEDTIME PRN 12/19/22 05/02/24 (Unisom (doxylamine)) Previous Rx's ?Medication ?Instructions ?Recorded fluticasone propionate 50 1 spray intranasal DAILY 30 days 07/27/23 mcg/actuation nasal #1 mL spray,suspension (Allergy Relief (fluticasone)) hydrocortisone-acetic acid 1 %-2 % 4 drp otic (ear) left TID 7 days 11/22/23 ear drops #10 mL valacyclovir 500 mg tablet 500 mg PO ONCE cold sores 90 days 12/21/23 #90 tabs metronidazole 0.75 % (37.5 mg/5 1 appful vaginal DAILY 5 days #70 12/24/23 gram) vaginal gel grams bisacodyl 5 mg tablet,delayed 10 mg (2 x 5 mg) PO BEDTIME 2 days 02/12/24 release (Dulcolax (bisacodyl)) #4 tabs hydrocortisone 2.5 % topical cream 1 appl PA BID hemorrhoids #30 grams 02/12/24 with perineal applicator (Proctosol HC) food supplemt, lactose-reduced 1 ea PO QID #3,792 mL 02/13/24 (Ensure oral liquid) hydrocortisone 1 % topical cream 1 appl topical BID PRN skin 02/20/24 irritation #28.35 grams albuterol sulfate 90 mcg/actuation 2 puff inhalation Q4-6H PRN 02/27/24 aerosol inhaler shortness of breath or wheezing 30 days #8.5 grams tiotropium bromide 18 mcg capsule 1 cap inhalation DAILY SEVERE COPD 02/27/24 with inhalation device (Spiriva 30 days #30 inhalations with HandiHaler) megestrol 40 mg tablet 40 mg PO DAILY 90 days #90 tabs 03/06/24 hydroxyzine HCl 25 mg tablet 25 mg PO BEDTIME itching #14 tabs 03/14/24 naphazoline 0.025 %-pheniramine 1 drp ophthalmic (eye) BID-QID PRN 04/15/24 0.3 % eye drops (Naphcon-A) Itchy eyes 30 days #15 mL cholecalciferol (vitamin D3) 25 25 mcg PO DAILY 30 days #30 caps 06/02/24 mcg (1,000 unit) capsule fluticasone 250 mcg-salmeterol 50 1 inh inhalation BID copd 30 days 06/03/24 mcg/dose blistr powdr for #60 ea inhalation (Wixela Inhub) mometasone 0.1 % topical cream 1 appl topical DAILY PRN skin 06/11/24 irritation #15 grams vitamin A palmitate 7,500 mcg 7,500 mcg PO QWEEK 12 weeks #12 06/16/24 (25,000 unit) capsule (A-25 (vit A caps palmitate)) quetiapine 25 mg tablet (Seroquel) 25 mg PO BEDTIME 90 days #90 tabs 06/23/24 sertraline 50 mg tablet 50 mg PO DAILY #90 tabs 06/23/24 Allergies Allergy/AdvReac Type Severity Reaction Status Date / Time No Known Allergies Allergy Verified 07/14/24 18:31 Review of Systems 2 Review of Systems: Yes all other systems are reviewed and are negative PMFSH Past Medical History Medical History Anal itching Vaginal discharge Colonoscopy refused Palpitation Colon cancer screening Nicotine dependence, cigarettes, uncomplicated Non-compliance Hospital discharge follow-up Smoker Anorexia nervosa Underweight Urinary urgency Eczema Mammogram declined Surgical History History of cervical biopsy History of tonsillectomy History of surgery on arm Family History Family History Father Family history unknown Mother COPD (chronic obstructive pulmonary disease) Sister No problems noted. Sister COPD (chronic obstructive pulmonary disease) Social History Social History Housing: House Alcohol intake: current Alcohol intake frequency: 0-2 drinks per day Alcohol type: hard liquor Patient Tobacco Use Status: Current everyday Tobacco user Tobacco use type: Cigarette Cigarettes Per Day: 10 Years Smoked: onset 13yo, 1ppd x 45yrs, now1/2ppd - 40pyh Smoked in Last 30 Days: Yes e-Cigarette/Vaping Use: Never Used Use of substances other than those prescribed or required for medical reasons: No Substance Use Type: Marijuana Advance Directives: No Advance Directives Information Provided: No Current occupational status: disabled Sexual orientation: Straight/Heterosexual Gender identity: Female Cognitive needs: No Hearing needs: No Vision needs: No Physical Exam 2 Vital Signs: Vital Signs: Last Vital Signs Temp 98.5 F 07/15/24 00:18 Pulse 96 07/15/24 01:03 Resp 24 H 07/15/24 01:03 BP 119/77 07/15/24 00:18 Pulse Ox 95 07/15/24 00:18 O2 Del Method Nasal Cannula 07/15/24 00:18 O2 Flow Rate 2 07/15/24 00:18 Oxygen Flow Rate 3 07/14/24 18:28 BMI result Body Mass Index 17.2 Appearance: Alert. Oriented X3. No acute distress. Eyes: No pallor or icterus ENT: Pharynx normal. Oral Mucosa moist Neck: Normal inspection. Neck supple. CVS: Normal heart rate and rhythm. Pulses normal. Respiratory: No respiratory distress. Equal air entry bilateral, prolonged expiration decreased air entry bilaterally Abdomen: Soft and nontender. Bowel sounds are present, no mass palpable, no CVA tenderness Skin: Skin warm and dry. Normal skin color. Normal skin turgor. Extremities: No lower extremity edema. No calf tenderness Neuro: Oriented X 3. No motor deficit. Medications Administered Generic Name Dose Route Start Last Admin Trade Name Freq PRN Reason Stop Dose Admin Azithromycin 500 mg/ Sodium 250 mls @ 125 mls/hr 07/14/24 23:45 07/15/24 00:44 Chloride IV 125 mls/hr Q24H NAIMA Administration Discontinued Medications Generic Name Dose Route Start Last Admin Trade Name Freq PRN Reason Stop Dose Admin Albuterol/Ipratropium 3 ml 07/14/24 23:53 07/15/24 01:03 Albuterol/Iprat 2.5/0.5mg 3 Ml Ampul.Neb INHALE 07/14/24 23:54 3 ml ONCE STA Administration Albuterol Sulfate 2.5 mg/ 0 mg 07/14/24 18:54 07/14/24 19:12 Albuterol/Ipratropium 3 ml INHALE 07/14/24 18:55 5 dose ONCE ONE Administration Ceftriaxone Sodium 1 gm/ 50 mls @ 100 mls/hr 07/14/24 21:45 07/14/24 22:24 Sodium Chloride IV 07/14/24 22:14 Infused ONCE ONE Infusion Methylprednisolone Sodium Succinate 60 mg 07/14/24 18:59 07/14/24 19:04 Methylprednisolone Sod Succ 125 Mg/2 Ml Vial IVPUSH 07/14/24 19:00 60 mg ONCE ONE Administration Potassium Chloride 40 meq 07/15/24 00:17 07/15/24 00:46 Potassium Chloride Er 20 Meq Tab.Er.Prt PO 07/15/24 00:18 40 meq ONCE ONE Administration Medical Decision Making Medical Decision Making [facility] Narrative: Patient has nicotine dependence with emphysema saturating 85% at room air improved after nebulizing treatment but still without oxygen drops to 85 will admit patient for oxygen therapy no source of infection at this time will give Rocephin IV as she has COPD Differential Diagnosis Differential Diagnoses: The differential diagnosis associated with the presentation includes COPD/pneumonia/pneumothorax/CHF Admission/Observation Consideration of admission/observation: Escalation of care including admission/observation considered Consult Healthcare Provider Management of the patient was discussed with: Hospitalist Lab Data [facility] Lab Attestation statement: I reviewed the patient's lab results. 07/14/24 20:02 07/14/24 20:02 Labs: Lab Results 07/14/24 07/14/24 Range/Units 20:02 21:56 WBC 5.8 (4.8-10.8) X10*3/uL RBC 4.13 L (4.20-5.50) X10*6/uL Hgb 13.2 (12.0-16.0) g/dl Hct 40.5 (37.0-47.0) % MCV 98.1 H (80.0-98.0) fL MCH 32.0 (27.0-33.0) pg MCHC 32.6 (31.0-35.0) g/dl RDW 12.5 (11.0-16.0) % Plt Count 237 D (160-400) X10*3/uL MPV 10.4 (9.4-12.3) fL Immature Gran % (Auto) 0.2 (0.0-0.4) % Neut % (Auto) 69.2 (45-73) % Lymph % (Auto) 21.1 (20-40) % Cocke % (Auto) 6.2 (2-11) % Eos % (Auto) 2.6 (0-4) % Baso % (Auto) 0.7 (0-2) % Lymph # (Auto) 1.2 (1.2-4.9) X10*3/uL [place] # (Auto) 0.4 (0.1-1.2) X10*3/uL Eos # (Auto) 0.2 (0.0-0.4) X10*3/uL Baso # (Auto) 0.0 (0.0-0.2) X10*3/uL Abs Immat Gran (auto) 0.01 (0.00-0.03) X10*3/uL Absolute Neuts (auto) 4.0 (2.0-8.3) x10*3/uL Absolute Nucleated RBC 0.000 (0.0-0.012) X10*3/uL Nucleated RBC % (auto) 0.0 (0.0-0.2) /100WBC VBG pH 7.49 H (7.32-7.43) VBG pCO2 49 mmHg VBG pO2 49 mmHg VBG HCO3 38 H (22-26) mmol/L VBG O2 Saturation 86.0 % VBG Base Excess 13.1 mmol/L Sodium 148 H (135-145) mmol/L Potassium 3.2 L (3.3-5.1) mmol/L Chloride 100 (96-108) mmol/L Carbon Dioxide 39 H (22-29) mmol/L Anion Gap 12 (12-20) BUN 9 (9-16) mg/dL Creatinine 0.72 (0.5-1.4) mg/dL Estim Creat Clear Calc 58.7 Estimated GFR > 60 Random Glucose 121 H (60-115) mg/dL Lactic Acid 1.1 (0.5-2.0) mmol/L Calcium 9.8 (8.4-10.2) mg/dL Total Bilirubin 0.2 (0.0-1.0) mg/dL AST 17 (5-31) U/L ALT 14 (0-31) U/L Alkaline Phosphatase 32 L (39-117) U/L Troponin I High Sens 9.5 D (<3.5-17.0) ng/L Total Protein 7.6 (6.5-8.0) g/dL Albumin 4.3 (3.5-5.0) g/dL COVID-19 (KAYLEE) Negative (Negative) COVID-19 Clin Com See Note Independent Interpretation I performed an independent interpretation of an: EKG and Plain X-Ray Interpretation: Normal sinus rhythm heart rate 90 beats per minute right axis deviation no acute ST-T changes no acute ischemia Radiology Impression Discussion of test interpretation with radiology: I have reviewed the radiologist's reading. External Record Review External record reviewed: Office record, Prior outpatient labs and Prior outpatient radiology Critical Care Time Critical Care Time Critical Care Time: Yes Total Critical Care Time: 55 Attestation: The patient was critically ill with a high probability of imminent or life threatening deterioration. I spent greater than 60 ???minutes of discontinuous time evaluating the patient,delivering critical care at the bedside, discussing and evaluating pertinent data with consultants. Critical care time does not include time spent performing separately billable procedures or teaching. Total time spent performing critical care was 55???minutes. Discharge Plan Discharge Clinical Impression: Acute on chronic hypoxic respiratory failure, Acute exacerbation of chronic obstructive pulmonary disease Patient Disposition: Admitted As Inpatient
--- NOTE | 2024-07-14 18:55 | ECG_ITS ---
Test Reason : DYSPNEA Blood Pressure : / mmHG Vent. Rate : 090 BPM Atrial Rate : 090 BPM P-R Int : 110 ms QRS Dur : 078 ms QT Int : 364 ms P-R-T Axes : 064 115 075 degrees QTc Int : 445 ms Sinus rhythm with short WA Right axis deviation Abnormal ECG When compared with ECG of 14-SEP-2023 23:25, No significant change was found Referred By: Mesfin High Electronically Signed By:TABATHA CEDEÑO
[2024-07-14] MEDS: methylPREDNISolone Sod Succ 125 MG/2 ML VIAL 60 MG IVPUSH (19:04)
[2024-07-14] MEDS: Albuterol Sulfate 2.5 MG, Albuterol/Iprat 2.5/0.5MG 3 ML 3 ML INHALE (19:12)
[2024-07-14 19:13] VITALS: PULSE 92; RESP 18; O2SAT 97
[2024-07-14 19:19] VITALS: BP 132/77; PULSE 92; RESP 16; TEMP 36.6; O2SAT 95
[2024-07-14 20:09] LABS: MANUAL DIFF FLAG NO
[2024-07-14 20:11] LABS: Basophils Percent Auto 0.7 % (0-2); Eosinophils Absolute Auto 0.2 X10*3/uL (0.0-0.4); Eosinophils Percent Auto 2.6 % (0-4); Hematocrit 40.5 % (37.0-47.0); Hemoglobin 13.2 g/dl (12.0-16.0); Imm Gran Abs Auto 0.01 X10*3/uL (0.00-0.03); Imm Gran Pct Auto 0.2 % (0.0-0.4); Lymphocytes Absolute Auto 1.2 X10*3/uL (1.2-4.9); Lymphocytes Percent Auto 21.1 % (20-40); Mean Corpuscular HGB Conc 32.6 g/dl (31.0-35.0); Mean Corpuscular Volume 98.1 fL (80.0-98.0); Mean Platelet Volume 10.4 fL (9.4-12.3); Monocytes Absolute Auto 0.4 X10*3/uL (0.1-1.2); Monocytes Percent Auto 6.2 % (2-11); Neutrophils Percent Auto 69.2 % (45-73); Platelet Count 237 X10*3/uL (160-400); Red Blood Count 4.13 X10*6/uL (4.20-5.50); Red Cell Distribution Width 12.5 % (11.0-16.0); White Blood Count 5.8 X10*3/uL (4.8-10.8)
[2024-07-14 20:21] LABS: Lactic Acid 1.1 mmol/L (0.5-2.0)
[2024-07-14 20:25] LABS: Alanine Aminotransferase 14 U/L (0-31); Albumin Level 4.3 g/dL (3.5-5.0); Alkaline Phosphatase 32 U/L (39-117); Anion Gap 12 (12-20); Aspartate Amino Transferase 17 U/L (5-31); Bilirubin Total 0.2 mg/dL (0.0-1.0); Blood Urea Nitrogen 9 mg/dL (9-16); Calcium 9.8 mg/dL (8.4-10.2); Carbon Dioxide 39 mmol/L (22-29); Chloride 100 mmol/L (96-108); Creatinine Clr Calc Pharmacy 58.7; Estimated Glomerular Filt Rate > 60; Glucose Random 121 mg/dL (60-115); Potassium 3.2 mmol/L (3.3-5.1); Sodium 148 mmol/L (135-145); Total Protein 7.6 g/dL (6.5-8.0)
[2024-07-14 20:26] LABS: COVID-19 Test Negative (Negative); IDNOW Serial# 58CA691E
[2024-07-14 20:32] LABS: Troponin-I High Sensitivity 9.5 ng/L (<3.5-17.0)
[2024-07-14 21:44] VITALS: O2SAT 85
[2024-07-14] MEDS: cefTRIAXone sodium 1 GM in 0.9 % Sodium Chloride 50 ML IV (21:55)
[2024-07-14 21:58] LABS: Venous Blood Gas Refer to POC result
[2024-07-14 21:59] LABS: VBG Base Excess 13.1 mmol/L; VBG HCO3 38 mmol/L (22-26); VBG pCO2 49 mmHg; VBG pH 7.49 (7.32-7.43); VBG pO2 49 mmHg
[2024-07-14 22:33] VITALS: BP 121/68; PULSE 90; RESP 30; TEMP 36.6
--- NOTE | 2024-07-14 22:47 | MHC.EDTECH ---
Patient walked to bathroom
--- NOTE | 2024-07-14 23:59 | PM.IMHP ---
History of Present Illness Date of Service: 07/14/24 Attending physician on admission: Westley Medina Chief Complaint: Shortness of breaths Mara Walker is a 59 years old woman with past medical history significant for COPD on Advair -no home O2, bipolar disorder and malnutrition presents to the emergency department from urgent care after she was found to have low O2 sats (84%). Patient has been having worsening shortness of breath (> 1week). She has chronic cough. No fevers chills reported. Denies chest pain, abdominal pain nausea or vomiting. She smokes tobacco (about 10 cigarrette daily) and drinks alcohol daily (large glass according to daughter who was at bedside and is her health proxy). Denies marijuana or illicit drug use. In the ED, she was found to have tachypnea. Oxygen saturation dropped to 85 on room air. She is currently requiring 2 L/min supplemental oxygen via nasal cannula. Blood workup is basically unremarkable except for mild hypernatremia, hypokalemia (3.2) and elevated CO2 of 39. Venous blood gas showed pH of 7.49 and pCO2 of 49. LFTs and renal function are normal. Troponin is normal. COVID-19 test is negative. CXR is negative for pneumonia, pleural effusions or pneumothorax. ECG showed normal sinus rhythm, right axis deviation no acute ischemic changes. ED tx: Albuterol 2.5 mg, Solu-Medrol 60 mg IV, ceftriaxone 1 g IV Review of Systems Review of Systems: All 12 systems were reviewed and normal except as noted in HPI. [facility] Medical History Anal itching Vaginal discharge Colonoscopy refused Palpitation Colon cancer screening Nicotine dependence, cigarettes, uncomplicated Non-compliance Hospital discharge follow-up Smoker Anorexia nervosa Underweight Urinary urgency Eczema Mammogram declined Family History Father Family history unknown Mother COPD (chronic obstructive pulmonary disease) Sister No problems noted. Sister COPD (chronic obstructive pulmonary disease) Surgical History History of cervical biopsy History of tonsillectomy History of surgery on arm Social History Housing: House Alcohol intake: current Alcohol intake frequency: 0-2 drinks per day Alcohol type: hard liquor Patient Tobacco Use Status: Current everyday Tobacco user Tobacco use type: Cigarette Cigarettes Per Day: 10 Years Smoked: onset 13yo, 1ppd x 45yrs, now1/2ppd - 40pyh Smoked in Last 30 Days: Yes e-Cigarette/Vaping Use: Never Used Use of substances other than those prescribed or required for medical reasons: No Substance Use Type: Marijuana Advance Directives: No Advance Directives Information Provided: No Current occupational status: disabled Sexual orientation: Straight/Heterosexual Gender identity: Female Cognitive needs: No Hearing needs: No Vision needs: No Meds Allergies Allergy/AdvReac Type Severity Reaction Status Date / Time No Known Allergies Allergy Verified 07/14/24 18:31 Active Medications: Current Medications Acetaminophen (Acetaminophen 325 Mg Tablet) 975 mg PO Q6H PRN PRN Reason: Pain, Mild (Pain Scale 1-3), fever or headache Albuterol Sulfate (Albuterol Sulfate (0.083%) 2.5 Mg/3 Ml Vial.Neb) 2.5 mg INHALE Q2H PRN PRN Reason: Shortness of Breath/Wheezing Albuterol/Ipratropium (Albuterol/Iprat 2.5/0.5mg 3 Ml Ampul.Neb) 3 ml INHALE ONCE STA Stop: 07/14/24 23:54 Enoxaparin Sodium (Enoxaparin Sodium 40 Mg/0.4 Ml Syringe) 40 mg SUBCUT Q24H [facility] Azithromycin 500 mg/ Sodium (Chloride) 250 mls @ 125 mls/hr IV Q24H NAIMA Methylprednisolone Sodium Succinate (Methylprednisolone Sod Succ 40 Mg/Ml Vial) 40 mg IVPUSH Q12H NAIMA Nicotine Polacrilex (Nicotine Polacrilex 2 Mg Gum) 2 mg BUCCAL Q2H PRN PRN Reason: Nicotine Cravings Sodium Chloride (0.9 % Sodium Chloride Flush 3 Ml Syringe) 3 ml IVFLUSH QSHIFT [facility] Home Medications ?Medication ?Instructions ?Recorded ?Confirmed ?Last Taken ?Type doxylamine succinate 25 mg tablet 25 mg PO BEDTIME PRN 12/19/22 05/02/24 Unknown History (Unisom (doxylamine)) Physical Exam Vital Signs and Narrative: Vital Signs: Last Vital Signs Temp 97.8 F 07/14/24 22:33 Pulse 90 07/14/24 22:33 Resp 30 H 07/14/24 22:33 BP 121/68 07/14/24 22:33 Pulse Ox 85 L 07/14/24 21:44 O2 Del Method Nasal Cannula 07/14/24 22:33 O2 Flow Rate 2 07/14/24 19:19 Oxygen Flow Rate 3 07/14/24 18:28 BMI result Body Mass Index 17.2 Constitutional - Awake and Alert, No apparent distress. Cachectic. On nasal cannula. HEENT - PERRL, EOMI Heart- S1S2, RRR, No edema Lungs - Normal lung expansion, Normal respiratory effort, No respiratory distress. Tachypnea. End expiratory wheezes. No crackles. No rhonchi. Abdomen - NT / ND; +BS; No rebound or guarding Extremities - no calf tenderness bilaterally, no swelling Musculoskeletal - generalized atrophy. Skin - Warm/Dry Neurological - Alert & oriented x3. Focal weakness grossly noted. Normal speech. Psychological - Appropriate affect Results Labs 07/14/24 20:02 07/14/24 20:02 Labs: Laboratory Results - last 24 hr 07/14/24 07/14/24 20:02 21:56 MCV 98.1 H MCH 32.0 MCHC 32.6 RDW 12.5 Plt Count 237 D MPV 10.4 Immature Gran % (Auto) 0.2 Neut % (Auto) 69.2 Lymph % (Auto) 21.1 [place]assen % (Auto) 6.2 Eos % (Auto) 2.6 Baso % (Auto) 0.7 Lymph # (Auto) 1.2 [place]assen # (Auto) 0.4 Eos # (Auto) 0.2 Baso # (Auto) 0.0 Abs Immat Gran (auto) 0.01 Absolute Neuts (auto) 4.0 Absolute Nucleated RBC 0.000 Nucleated RBC % (auto) 0.0 VBG pH 7.49 H VBG pCO2 49 VBG pO2 49 VBG HCO3 38 H VBG O2 Saturation 86.0 VBG Base Excess 13.1 Anion Gap 12 Estim Creat Clear Calc 58.7 Estimated GFR > 60 Random Glucose 121 H Lactic Acid 1.1 Calcium 9.8 Total Bilirubin 0.2 AST 17 ALT 14 Alkaline Phosphatase 32 L Troponin I High Sens 9.5 D Total Protein 7.6 Albumin 4.3 COVID-19 (KAYLEE) Negative COVID-19 Clin Com See Note Imaging Radiologist's Impressions: Impressions Chest X-Ray 07/14/24 18:55 IMPRESSION: No acute cardiopulmonary disease. Findings suggestive of chronic obstructive pulmonary disease. Electronically signed by: Kirit Kim DO 07/14/2024 08:42 PM EDT RP Assessment and Plan (1) Hypoxic respiratory failure: Qualifiers: Chronicity: acute on chronic Qualified Code(s): J96.21 - Acute and chronic respiratory failure with hypoxia Status: Acute (2) COPD exacerbation: Status: Acute (3) Malnutrition: Qualifiers: Malnutrition type: protein-calorie malnutrition Protein-calorie malnutrition severity: moderate Qualified Code(s): E44.0 - Moderate protein-calorie malnutrition Status: Acute (4) Bipolar disorder: Qualifiers: Active/Remission status: in partial remission Most recent bipolar episode type: depressed Qualified Code(s): F31.75 - Bipolar disorder, in partial remission, most recent episode depressed Status: Acute (5) Smoker: Status: Acute Plan Mara Walker is a 59 y/o woman admitted with: Hypoxic respiratory failure secondary to acute exacerbation of chronic obstructive pulmonary disease. Admit to hospitalist service. Telemetry. Pulse oximetry. Continue supplemental oxygen to keep O2 sats > 90%. Continue IV steroids, empiric IV antibiotic therapy (azithromycin) and bronchodilator therapy. Hypokalemia, mild. Likely nutritional and/or secondary to breathing treatment. Replete as needed. Continue to monitor K+ level. Hypernatremia, mild. Encourage patient to drink water. Recheck sodium level in the morning. Tobacco dependence. Tobacco cessation education. Nicotine gums as needed. EtOH use. CIWA. Thiamine, folic acid and multivitamins. Protein-calorie malnutrition. BMI 17.2 kg/m2. Continue megestrol. Bipolar disorder. Continue sertraline and Seroquel. DVT prophylaxis: Lovenox Code status: Full (daughter health care proxy). Patient will need hospitalization for at least 2 midnights for hypoxic respiratory failure secondary to acute exacerbation of COPD treatment with bronchodilator therapy, supplemental oxygen, IV antibiotics and IV steroids. Quality Stroke Does the patient have a stroke diagnosis?: No VTE Prior VTE?: No VTE Risk Level:: Medical - moderate - high VTE Device Contraindication: Treatment Not Indicated VTE Drug Contraindication: N/A - Med Ordered
[2024-07-15 00:18] VITALS: BP 119/77; PULSE 94; RESP 20; TEMP 36.9; O2SAT 95
--- NOTE | 2024-07-15 00:23 | MHC.EDTECH ---
This pct assumed care of Patient at 2300 ,vitals taken ,Patient having an egg salad sandwich and water for snack .Call rivera within Pt reach .
[2024-07-15] MEDS: Azithromycin 500 MG in 0.9 % Sodium Chloride 250 ML 125 MG IV ×2 (00:44→23:45)
[2024-07-15] MEDS: Potassium Chloride ER 20 MEQ TAB.ER.PRT 40 MEQ PO (00:46)
[2024-07-15 01:03] VITALS: PULSE 96; RESP 24; O2SAT 92
[2024-07-15] MEDS: Albuterol/Iprat 2.5/0.5MG 3 ML AMPUL.NEB INHALE ×3 (01:03→21:39)
--- NOTE | 2024-07-15 01:14 | PC.RT ---
pt given another neb tx. pt needs to be shown on how to breath in and out of her mouth as she gets very confused. she does not remember me from a few hours ago when i gave her a neb tx. She needs a lot of coaching and encouragement on doing a neb tx. she does take inhalers at home. she cannot do the mask tx as she was panicking when i tried. She also stated that she just ants to and go to [facility]. I will let the ED MD aware of her statement.
--- NOTE | 2024-07-15 01:28 | MHC.EDTECH ---
Patient very anxious ,Patient was assisted unto bedside commode ,void and was assisted by to bed .
[2024-07-15] MEDS: 0.9 % Sodium Chloride Flush 3 ML SYRINGE IVFLUSH ×3 (01:56→23:45)
--- NOTE | 2024-07-15 02:41 | MHC.EDTECH ---
Patient was moved into a hospital bed for comfort .
[2024-07-15 04:52] LABS: Basophils Percent Auto 0.2 % (0-2); Hematocrit 36.2 % (37.0-47.0); Hemoglobin 11.7 g/dl (12.0-16.0); Imm Gran Abs Auto 0.01 X10*3/uL (0.00-0.03); Imm Gran Pct Auto 0.2 % (0.0-0.4); Lymphocytes Absolute Auto 0.4 X10*3/uL (1.2-4.9); Lymphocytes Percent Auto 6.7 % (20-40); MANUAL DIFF FLAG SCAN; Mean Corpuscular HGB Conc 32.3 g/dl (31.0-35.0); Mean Corpuscular Hemoglobin 31.5 pg (27.0-33.0); Mean Corpuscular Volume 97.3 fL (80.0-98.0); Mean Platelet Volume 10.5 fL (9.4-12.3); Monocytes Absolute Auto 0.1 X10*3/uL (0.1-1.2); Monocytes Percent Auto 1.9 % (2-11); Neutrophils Absolute Auto 4.9 x10*3/uL (2.0-8.3); Platelet Count 223 X10*3/uL (160-400); Red Blood Count 3.72 X10*6/uL (4.20-5.50); Red Cell Distribution Width 12.4 % (11.0-16.0); SCAN SMEAR FLAG 1; White Blood Count 5.3 X10*3/uL (4.8-10.8)
[2024-07-15 05:07] LABS: Anion Gap 10 (12-20); Blood Urea Nitrogen 9 mg/dL (9-16); Calcium 9.2 mg/dL (8.4-10.2); Carbon Dioxide 33 mmol/L (22-29); Chloride 105 mmol/L (96-108); Creatinine Clr Calc Pharmacy 61.3; Estimated Glomerular Filt Rate > 60; Glucose Random 127 mg/dL (60-115); Magnesium 1.7 mg/dL (1.6-2.6); Potassium 4.2 mmol/L (3.3-5.1); Sodium 144 mmol/L (135-145)
[2024-07-15 05:11] LABS: SLIDE REVIEW VERIFIED
[2024-07-15] MEDS: methylPREDNISolone Sod Succ 40 MG/ML VIAL IVPUSH ×2 (05:38→17:10)
--- NOTE | 2024-07-15 05:47 | PC.NURSE ---
Addendum entered by Barbara Yoo RN 07/15/24 06:06: Hospitalist aware. Original Note: Pt is awake and alert, appropriate with staff. Pt repeatedly endorses wanted to be done and go [place] to be with her mother and sister, no articulated plan, reports that this world sucks . Provider aware. Denies any needs at this time.
[2024-07-15 06:07] VITALS: BP 113/71; PULSE 98; RESP 28; TEMP 37; O2SAT 100
--- NOTE | 2024-07-15 06:07 | PM.EVENT ---
Event Note Date of Service: 07/15/24 Event Note: 5:56 AM - contacted by nurse to notify: Continues to express wanting to ?just ? and go to [facility] to join mother and sister. Time Spent With Patient Time: Total time managing care of this patient today ____ minutes.
--- NOTE | 2024-07-15 06:34 | PC.NURSE ---
Pt is now on a section 12 per the hospitalist and close observation at the bedside will be ongoing. Pt's daughter is aware.
--- NOTE | 2024-07-15 06:46 | MHC.EDTECH ---
Patient endorsing wanted to and go to [place] with her mom and sister ,Provider section Patient Pt was change into green gown and blue pants ,all Patient belongings are locked up [place] closet ,locker # 4 .1:1 sitter at bedside .
[2024-07-15] MEDS: Sertraline HCL 50 MG TABLET PO (06:56)
[2024-07-15 07:30] VITALS: PULSE 83; RESP 17; O2SAT 97
--- NOTE | 2024-07-15 07:49 | PC.NURSE ---
report recieved from previous RN, patient resting on stretcher with 1:1 at bedside due to vague SI statemetes, section 12 placed by admitting MD. patient requesting ensure to have with breakfast, order placed and kitchen called. patient not offering any complaints to this RN, VSS on monitor, intermittently taking off oxygen due to discomfort, currently saturating at 98% on NC, all safety maintained, awaiting med surg bed placement
[2024-07-15] MEDS: Folic Acid 1 MG TABLET PO (08:39)
[2024-07-15] MEDS: QUEtiapine Fumarate 25 MG TABLET PO ×2 (08:39→20:43)
[2024-07-15] MEDS: Thiamine HCL 100 MG TABLET PO (08:39)
[2024-07-15] MEDS: Multivitamin TABLET 1 TAB PO (08:39)
[2024-07-15] MEDS: Nicotine 21 MG PATCH.TD24 TRANSDERMA (08:40)
[2024-07-15] MEDS: Enoxaparin Sodium 40 MG/0.4 ML SYRINGE SUBCUT (08:41)
--- NOTE | 2024-07-15 09:15 | PHA.MEDREC ---
Addendum entered by Maritza Villasenor RPh 07/15/24 09:57: reviewed by [facility]. Original Note: Pharmacy Consult ? Medication Reconciliation Pharmacy has completed the medication reconciliation. Spoke to patient daughter to confirm med list. Daughter new every medication the patient takes. Daughter states patient is no longer taking Bisacodyl 5 mg, Vitamin D3 25 mcg, Doxylamine succ 25 mg, Fluticasone nasal spray, Hydrocortisone 2.5 % rectal cream, Hydroxyzine 25 mg, Metronidazole 0.75 % vaginal cream, Mometasone 0.1% topical cream, Naphazoline 0.025% pheniramine 0.3% eye drops, and Vitamin A. Daughter says patient last took her medication on Sunday.
--- NOTE | 2024-07-15 12:21 | MHC.CM.PN ---
Attempted to meet with patient in regards to discharge planning. Patient currently sleeping. No family present. Will attempt to meet again. Continue to monitor for d/c needs.
--- NOTE | 2024-07-15 14:19 | PC.NURSE ---
Patient asking why she is here, asking if someone drugged her to get here. Currently on phone with daughter, redirectable
--- NOTE | 2024-07-15 14:51 | PC.NURSE ---
Report to overflow
--- NOTE | 2024-07-15 16:25 | HO.PM.IMPN ---
Subjective Subjective Date of Service: 07/15/24 Interval History: copd excerebation Review of Systems sob seems similar has some dry cough no fevers Physical Exam Vital Signs: Vital Signs: Last Vital Signs Temp 98.6 F 07/15/24 06:07 Pulse 83 07/15/24 07:30 Resp 17 07/15/24 07:30 BP 113/71 07/15/24 06:07 Pulse Ox 100 07/15/24 06:07 O2 Del Method Nasal Cannula 07/15/24 06:07 O2 Flow Rate 2 07/15/24 06:07 Oxygen Flow Rate 3 07/14/24 18:28 BMI result Body Mass Index 17.2 Appearance: Alert.? Oriented X3.?. cvs: rrr, [id number] , no murmur res:air entry diminshed , no wheezing abd: no rebound or guarding ,nt, bs present. ext pulses present , no cyanosis . neuro: axo3 , nonfocal. Objective Data Active Medications Acetaminophen (Acetaminophen 325 Mg Tablet) 975 mg PO Q6H PRN PRN Reason: Pain, Mild (Pain Scale 1-3), fever or headache Albuterol Sulfate (Albuterol Sulfate (0.083%) 2.5 Mg/3 Ml Vial.Neb) 2.5 mg INHALE Q2H PRN PRN Reason: Shortness of Breath/Wheezing Albuterol/Ipratropium (Albuterol/Iprat 2.5/0.5mg 3 Ml Ampul.Neb) 3 ml INHALE Q4H FORMERLY [facility], [facility]1983 Last Admin: 07/15/24 12:53 Dose: Not Given Documented By: MARVIN Non-Admin Reason: Patient Asleep Enoxaparin Sodium (Enoxaparin Sodium 40 Mg/0.4 Ml Syringe) 40 mg SUBCUT Q24H [facility], [facility]1983 Last Admin: 07/15/24 08:41 Dose: 40 mg Documented By: MANE Folic Acid (Folic Acid 1 Mg Tablet) 1 mg PO DAILY [facility]LY [facility], [facility]1983 Last Admin: 07/15/24 08:39 Dose: 1 mg Documented By: MANE Azithromycin 500 mg/ Sodium (Chloride) 250 mls @ 125 mls/hr IV Q24H [facility], [facility]–1983 Last Infusion: 07/15/24 04:18 Dose: Infused Documented By: EPIFANIO Methylprednisolone Sodium Succinate (Methylprednisolone Sod Succ 40 Mg/Ml Vial) 40 mg IVPUSH Q12H [facility], [facility]–1983 Last Admin: 07/15/24 05:38 Dose: 40 mg Documented By: EPIFANIO Multivitamins/Vitamin C (Multivitamin Tablet) 1 tab PO DAILY [facility], [facility]1983 Last Admin: 07/15/24 08:39 Dose: 1 tab Documented By: MANE Nicotine (Nicotine 21 Mg Patch.Td24) 21 mg TRANSDERMA DAILY [facility], [facility]1983 Last Admin: 07/15/24 08:40 Dose: 21 mg Documented By: MANE Nicotine Polacrilex (Nicotine Polacrilex 2 Mg Gum) 2 mg BUCCAL Q2H PRN PRN Reason: Nicotine Cravings Quetiapine Fumarate (Quetiapine Fumarate 25 Mg Tablet) 25 mg PO BID PRN PRN Reason: agitation Last Admin: 07/15/24 08:39 Dose: 25 mg Documented By: MANE Sodium Chloride (0.9 % Sodium Chloride Flush 3 Ml Syringe) 3 ml IVFLUSH QSHIFT [facility], [facility] Last Admin: 07/15/24 08:03 Dose: Not Given Documented By: MANE Non-Admin Reason: See Note Thiamine HCl (Thiamine Hcl 100 Mg Tablet) 100 mg PO DAILY [facility] Last Admin: 07/15/24 08:39 Dose: 100 mg Documented By: MANE Labs 07/15/24 04:35 07/15/24 04:35 Labs: Laboratory Results - last 24 hr 07/14/24 07/14/24 07/15/24 20:02 21:56 04:35 MCV 98.1 H 97.3 MCH 32.0 31.5 MCHC 32.6 32.3 RDW 12.5 12.4 Plt Count 237 D 223 MPV 10.4 10.5 Immature Gran % (Auto) 0.2 0.2 Neut % (Auto) 69.2 91.0 H Lymph % (Auto) 21.1 6.7 L Meade % (Auto) 6.2 1.9 L Eos % (Auto) 2.6 0.0 Baso % (Auto) 0.7 0.2 Lymph # (Auto) 1.2 0.4 L Meade # (Auto) 0.4 0.1 Eos # (Auto) 0.2 0.0 Baso # (Auto) 0.0 0.0 Abs Immat Gran (auto) 0.01 0.01 Absolute Neuts (auto) 4.0 4.9 Absolute Nucleated RBC 0.000 0.000 Nucleated RBC % (auto) 0.0 0.0 Smear Tech's Comments VERIFIED VBG pH 7.49 H VBG pCO2 49 VBG pO2 49 VBG HCO3 38 H VBG O2 Saturation 86.0 VBG Base Excess 13.1 Anion Gap 12 10 L Estim Creat Clear Calc 58.7 61.3 Estimated GFR > 60 > 60 Random Glucose 121 H 127 H Lactic Acid 1.1 Calcium 9.8 9.2 D Magnesium 1.7 Total Bilirubin 0.2 AST 17 ALT 14 Alkaline Phosphatase 32 L Troponin I High Sens 9.5 D Total Protein 7.6 Albumin 4.3 COVID-19 (KAYLEE) Negative COVID-19 Clin Com See Note Assessment and Plan (1) Acute exacerbation of chronic obstructive pulmonary disease: Status: Acute Assessment and Plan: 59 y/o woman admitted with: Hypoxic respiratory failure secondary to acute exacerbation of chronic obstructive pulmonary disease. Still show shortness of breath with minimal exertion, hypoxic continue Telemetry. Pulse oximetry. Continue supplemental oxygen to keep O2 sats > 90%. Continue IV steroids, empiric IV antibiotic therapy (azithromycin) and bronchodilator therapy, taper oxygen. Hypokalemia, mild. Likely nutritional and/or secondary to breathing treatment. Repleted and resolved. Hypernatremia, mild. improved with hydration. Tobacco dependence. Tobacco cessation education. Nicotine gums as needed. etoh use. CIWA. Thiamine, folic acid and multivitamins. Protein-calorie malnutrition. BMI 17.2 kg/m2. Continue megestrol. Bipolar disorder. Continue sertraline and Seroquel. DVT prophylaxis: Lovenox. Code status: Full (daughter health care proxy). ongoing hospitalization need for hypoxic respiratory failure secondary to acute exacerbation of COPD treatment with oxygen need, bronchodilator therapy, supplemental oxygen, IV antibiotics and IV steroids. Quality Stroke Does the patient have a stroke diagnosis?: No VTE Prior VTE?: No VTE Risk Level:: Medical - moderate - high VTE Device Contraindication: Treatment Not Indicated VTE Drug Contraindication: N/A - Med Ordered
[2024-07-15 21:39] VITALS: PULSE 99; RESP 20; O2SAT 96
[2024-07-15 22:43] VITALS: BMI 17.1
[2024-07-16] MEDS: Albuterol/Iprat 2.5/0.5MG 3 ML AMPUL.NEB INHALE ×3 (00:42→11:35)
[2024-07-16 00:45] VITALS: PULSE 90; RESP 26; O2SAT 97
--- NOTE | 2024-07-16 03:25 | PC.NURSE ---
Pt came to rm 373 from the ED per stretcher at 2223 accpd by staff with pt's daughter and granddaughter, pt alert and oriented x1-2, very forgetful and repetitive and needs frequent reorientation, denies any SOB, LS was scattered insp wheeze, tolerating O2 at 2L/min via NC, pt denies any SI tho made SI comments in the ED, sitter at bedside, also noted with scaly rashes on the left earlobe and right lower leg, meds given, slept later.
[2024-07-16 03:32] VITALS: BP 97/56; PULSE 91; RESP 18; TEMP 36.6; O2SAT 99
[2024-07-16] MEDS: methylPREDNISolone Sod Succ 40 MG/ML VIAL IVPUSH (05:37)
[2024-07-16 07:44] VITALS: BP 104/62; PULSE 91; RESP 18; TEMP 36.6; O2SAT 96
[2024-07-16] MEDS: Enoxaparin Sodium 40 MG/0.4 ML SYRINGE SUBCUT (07:44)
[2024-07-16] MEDS: 0.9 % Sodium Chloride Flush 3 ML SYRINGE IVFLUSH (07:44)
[2024-07-16] MEDS: Nicotine 21 MG PATCH.TD24 TRANSDERMA (07:44)
[2024-07-16] MEDS: Multivitamin TABLET 1 TAB PO (07:44)
[2024-07-16] MEDS: Thiamine HCL 100 MG TABLET PO (07:44)
[2024-07-16] MEDS: Folic Acid 1 MG TABLET PO (07:44)
[2024-07-16] MEDS: Sertraline HCL 50 MG TABLET PO (07:44)
[2024-07-16 08:21] VITALS: PULSE 91; RESP 18; O2SAT 97
[2024-07-16 10:56] VITALS: BMI 17.1
--- NOTE | 2024-07-16 11:18 | MHC.CM.PN ---
IMM DELIVERED PT LIVES ALONE. INDEPENDENT WITH MOBILITY. NO SERVICES/DME. +HCP PCP DR. GUARDADO DP: PER MD ROUNDS, PT WILL DC TO PSYCH UNIT ONCE MEDICALLY CLEARED. CM WILL CONTINUE TO FOLLOW FOR ANY CHANGE TO DC PLAN/NEEDS.
[2024-07-16 11:35] VITALS: PULSE 91; RESP 18; O2SAT 96
--- NOTE | 2024-07-16 13:13 | MHC.CLN ---
NUTRITION CONSULT FOR POOR PO AND WEIGHT LOSS. DIET=REGULAR. ADDING ENSURE TID. PROVIDES 1050 KCALS, 60 G PROTEIN. NUTRITION DX MODERATE MALNUTRITION IN THE CONTEXT OF SOCIAL/BEHAVIORAL CIRCUMSTANCES. SUSPECT ERROR IN WEIGHT, SHOWING SIGNIFICANT WEIGHT GAIN X ONE MONTH. PMH WITH ANOREXIA NERVOSA. FOLLOW FOR PO INTAKE AND WEIGHT.
--- NOTE | 2024-07-16 14:44 | P.DS_ITS ---
DS: Providers Provider Date of Service: 07/16/24 Date of admission: 07/14/24 23:53 Date of discharge: 07/16/24 Primary care physician: Vito Beal MD Consults: 07/15/24 08:22 Consult for Sitter Routine Reason for consultation: SI Has provider been notified: No 07/15/24 23:11 Addiction Medicine Routine Consulting Provider: Addiction Covering Reason for consultation: daily alcohol intake 07/16/24 12:33 Consult to Care Team Routine Comment: Reason for consultation: medically clear Has provider been notified: No DS: Diagnosis Discharge Diagnosis (1) Acute exacerbation of chronic obstructive pulmonary disease: Status: Acute DS: Summary Hospital Course Hospital Course: HPI:59 years old woman with past medical history significant for COPD on Advair -no home O2, bipolar disorder and malnutrition presents to the emergency department from urgent care after she was found to have low O2 sats (84%). Patient has been having worsening shortness of breath (> 1week). She has chronic cough. No fevers chills reported. Denies chest pain, abdominal pain nausea or vomiting. She smokes tobacco (about 10 cigarrette daily) and drinks alcohol daily (large glass according to daughter who was at bedside and is her health proxy). Denies marijuana or illicit drug use. In the ED, she was found to have tachypnea. Oxygen saturation dropped to 85 on room air. She is currently requiring 2 L/min supplemental oxygen via nasal cannula. Blood workup is basically unremarkable except for mild hypernatremia, hypokalemia (3.2) and elevated CO2 of 39. Venous blood gas showed pH of 7.49 and pCO2 of 49. LFTs and renal function are normal. Troponin is normal. COVID-19 test is negative. CXR is negative for pneumonia, pleural effusions or pneumothorax. ECG showed normal sinus rhythm, right axis deviation no acute ischemic changes. ED tx: Albuterol 2.5 mg, Solu-Medrol 60 mg IV, ceftriaxone 1 g IV. Hospital course: Patient was admitted to the hospital because of shortness of breath and hypoxia -found to have hypoxemic respiratory failure secondary to acute exacerbation of COPD-patient was started on nebs, steroids, oxygen seems to be improved s ignificantly,hypoxia resolved. complete azithromycin 250 mg po daily for 4 days and prednisone 40 mg daily for 4 days . In addition patient has possible protein calorie malnutrition-encouraged for p. o. intake as well as electrolytes hypokalemia-repleted and hypernatremia- improved with hydration. Patient was strongly advised p.o. intake and hydration, consider outpatient nutrition supplements as per PCP. Patient has history of alcohol use: Currently asymptomatic, not withdrawing, Added thiamine and folic acid. Patient also has possible bipolar disorder-on sertraline and Seroquel, in addition patient expressed suicidal ideation but cleared by care team upon discharge. Above was discussed with the patient and her daughter in detail length, time spent 40 minute. The both understand above management and in agreement with the plan. Time Attestation Total time managing care of this patient today: 40 mintues. Discharge Coordination Time (in mins): 40 min Quality: Safe Use of Opioids Does Pt have an Active Cancer Diagnosis on the Problem List?: No Quality: Stroke Does the patient have a stroke diagnosis?: No Physical Exam Vital Signs: Vital Signs: Last Vital Signs Temp 97.8 F 07/16/24 07:44 Pulse 91 07/16/24 11:35 Resp 18 07/16/24 11:35 BP 104/62 07/16/24 07:44 Pulse Ox 96 07/16/24 07:44 O2 Del Method Nasal Cannula 07/16/24 07:44 O2 Flow Rate 2 07/16/24 07:44 Oxygen Flow Rate 3 07/14/24 18:28 BMI result Body Mass Index 17.1 Appearance: Alert.? Oriented X3.? cvs: rrr, [id number] , no murmur res:air entry fair, no wheezing abd: no rebound or guarding ,nt, bs present. ext pulses present , no cyanosis . neuro: axo3 , nonfocal. DS: Data Data Completed and Pending Labs on day of discharge: Preliminary micro results at discharge 07/14/24 20:51 Blood Culture - Preliminary Blood - Venous No growth after 24 hours. 07/14/24 20:02 Blood Culture - Preliminary Blood - Venous No growth after 24 hours. Imaging Chest x-ray: Radiologist's impression: ITS Impressions Chest X-Ray 07/14/24 18:55 IMPRESSION: No acute cardiopulmonary disease. Findings suggestive of chronic obstructive pulmonary disease. Electronically signed by: Kirit Kim DO 07/14/2024 08:42 PM EDT Discharge Plan Discharge Anticipated Discharge Date/Time: 07/16/24 14:33 Patient Disposition: Home, Self-Care Discharge Diagnosis: copd excerebation Referrals: Vito Beal MD [Primary Care Provider] - 1 Week Discharge Medications: New folic acid 1 mg Tablet 1 mg PO DAILY Qty: 30 0RF thiamine mononitrate (vit B1) 100 mg Tablet 100 mg PO DAILY Qty: 30 0RF multivitamin [Daily-Yoshi] Tablet 1 tab PO DAILY Qty: 30 0RF prednisone 20 mg tablet 40 mg PO DAILY Qty: 8 0RF azithromycin [Zithromax] 250 mg tablet 250 mg PO DAILY 4 Days Qty: 4 0RF Continued Ensure Liquid 1 ea PO QID Qty: 3792 12RF albuterol sulfate 90 mcg/actuation HFA aerosol inhaler 2 puff inhalation Q4-6H PRN (Reason: shortness of breath or wheezing) 30 Days Qty: 8.5 3RF tiotropium bromide [Spiriva with HandiHaler] 18 mcg capsule, w/inhalation device 1 cap inhalation DAILY 30 Days Qty: 30 2RF Rx Instructions: puncture 1 cap using device; one dose = 2 inhalations megestrol 40 mg tablet 40 mg PO DAILY 90 Days Qty: 90 3RF fluticasone propion-salmeterol [Wixela Inhub] 250-50 mcg/dose blister with device 1 inh inhalation BID 30 Days Qty: 60 3RF quetiapine [Seroquel] 25 mg tablet 25 mg PO BEDTIME 90 Days Qty: 90 1RF sertraline 50 mg tablet 50 mg PO DAILY Qty: 90 1RF valacyclovir 500 mg tablet 500 mg PO ONCE 90 Days Qty: 90 3RF hydrocortisone 1 % cream 1 appl topical BID PRN (Reason: skin irritation) Qty: 28.35 0RF Discharge Orders: Discharge Order (Routine); Ordered 07/16/24 Ordered By: Tyler Ding Diet: Advance to usual diet Activity on Discharge: As tolerated Stand Alone Forms: Patient Portal Discharge page Print Language: Occitan Care Plan Goals: Patient was admitted to the hospital because of shortness of breath and hypoxia -found to have hypoxemic respiratory failure secondary to acute exacerbation of COPD-patient was started on nebs, steroids, oxygen seems to be improved significantly,hypoxia resolved. complete azithromycin 250 mg po daily for 4 days and prednisone 40 mg daily for 4 days . In addition patient has possible protein calorie malnutrition-encouraged for p.o. intake as well as electrolytes hypokalemia-repleted and hypernatremia- improved with hydration. Patient was strongly advised p.o. intake and hydration, consider outpatient nutrition supplements as per PCP. Patient has history of alcohol use: Currently asymptomatic, not withdrawing, Added thiamine and folic acid. Patient also has possible bipolar disorder-on sertraline and Seroquel, in addition patient expressed suicidal ideation but cleared by care team upon discharge. Above was discussed with the patient and her daughter in detail length, time spent 40 minute. The both understand above management and in agreement with the plan. Health Concerns: As above. Plan of Treatment: As above. Assessment: As above. Discharge Date/Time: 07/16/24 16:12
--- NOTE | 2024-07-16 14:44 | MHC.CM.PN ---
DP: PT HAS BEEN MEDICALLY CLEARED FOR DC HOME, NO SERVICES. DAUGHTER RODRÍGUEZ UPDATED AND WILL TRANSPORT HOME. RN AWARE.
--- NOTE | 2024-07-17 13:09 | MHC.CARE ---
Referral to [facility] was completed for this pt.
== END 2024-07-16 16:12 | disposition home or self-care (01) | DRG 191 ==
LOC: HO.ED 20:25 → HO.EDOVER 23:59 → HO.S3 07-15 19:48
PROVIDERS: Admitting Provider Internal Medicine; Emergency Provider Internal Medicine; PCP Internal Medicine; Visit Provider Internal Medicine
DX: J44.1 Chronic obstructive pulmonary disease with (acute) exacerbation (principal); E44.0 Moderate protein-calorie malnutrition; E87.0 Hyperosmolality and hypernatremia; Z68.1 Body mass index [BMI] 19.9 or less, adult; E87.6 Hypokalemia; F31.9 Bipolar disorder, unspecified; F17.210 Nicotine dependence, cigarettes, uncomplicated; Z71.6 Tobacco abuse counseling; Z20.822 Contact with and (suspected) exposure to COVID-19; Z79.51 Long term (current) use of inhaled steroids; Z79.899 Other long term (current) drug therapy
CPT/HCPCS: 36415; 71045; 80048; 80053; 82803; 83605; 83735; 84484; 85025; 87040; 87635; 93005; 94640; 99285; J0456; J0696; J1650; J2919; S9485

== ENCOUNTER → 2024-07-14 23:53 | Outpatient (BNV) | payer MEDICARE, SELFPAY | PROVIDERS: Admitting Provider Internal Medicine; Emergency Provider Internal Medicine; PCP Internal Medicine; Visit Provider Internal Medicine | DX: J96.21 Acute and chronic respiratory failure with hypoxia (principal); J44.1 Chronic obstructive pulmonary disease with (acute) exacerbation; E44.0 Moderate protein-calorie malnutrition; F31.75 Bipolar disorder, in partial remission, most recent episode depressed; F17.200 Nicotine dependence, unspecified, uncomplicated | CPT/HCPCS: 99223; 99232; 99239; 99499 ==

== ENCOUNTER 2024-07-23 15:23 | Outpatient (AMB) | payer MEDICARE, SELFPAY ==
--- NOTE | 2024-07-23 14:13 | MHC.PC.OV ---
Vital Signs 07/23/24 15:24 Height 5 ft 4 in Weight 80 lb 8 oz BMI 13.8 BP 124/78 Blood Pressure Location Lt brachial Position Sitting Pulse 101 H Pulse Source Pulse Oximeter Pulse Oximetry (%) 92 Oxygen Delivery Method Room Air Intake Visit Reasons: dx: hypoxia Allergies No Known Allergies Allergy (Verified 07/23/24 15:24) Medication List - Last Reconciled 07/23/24 by Vito Beal MD albuterol sulfate 90 mcg/actuation 2 puffs inhalation Q4-6H PRN 30 days azithromycin (Zithromax) 250 mg PO DAILY 4 days bisacodyl (Dulcolax (bisacodyl)) 20 mg (4 x 5 mg) PO ONCE 1 day fluticasone propion-salmeterol 250-50 mcg/dose (Wixela Inhub) 1 inh inhalation BID 30 days folic acid 1 mg PO DAILY food supplemt, lactose-reduced (Ensure oral liquid) 1 ea PO QID hydrocortisone 1% 1 appl topical BID PRN megestrol 40 mg PO DAILY 90 days multivitamin (Daily-Yoshi tablet) 1 tab PO DAILY polyethylene glycol 3350 (Miralax) 238 grams PO ONCE 1 day prednisone 40 mg (2 x 20 mg) PO DAILY quetiapine (Seroquel) 25 mg PO BEDTIME 90 days sertraline 50 mg PO DAILY thiamine mononitrate (vit B1) 100 mg PO DAILY tiotropium bromide (Spiriva with HandiHaler) 1 cap inhalation DAILY 30 days valacyclovir 500 mg PO ONCE 90 days Tobacco use date assessed: 07/23/24 Dental Screening Dental Screen Date: 07/23/24 Did you have a dental visit in the last 12 months?: No Did you have a dental problem in the last 6 months where you did not have access to dental care?: No Was dental information given to patient?: No HPI dx: hypoxia HPI Details Patient is 59-year-old female came in today for follow-up from emergency room visit [facility] July 14/2024 Her daughter Gely is here with the patient Patient have severe COPD and started getting more short of breath, she came to urgent care and her sats were 84% on room air Patient is using her Advair and albuterol inhaler at home And continued to smoke half a pack a day On 2 L of oxygen her pulse ox increased to 95% EKG showed normal sinus rhythm 90 beats per minute no ST-T changes Chest x-ray did not show any pneumonia After evaluation patient was admitted with a diagnosis of acute on chronic hypoxic respiratory failure, acute exacerbation of COPD Patient also suffers from bipolar disorder, and is on SSRIs and Seroquel She has been depressed for very long time and we have tried to get her helped multiple times In-hospital patient was given nebulizer treatments and was kept on oxygen also was given steroids and she gradually improved Patient was discharged home with azithromycin and prednisone 40 mg for 4 days She found to be slightly hypokalemic electrolytes were supplemented Patient is back pain, she had neurology appointment for memory deficit But she passed the test, neuropsychological testing was ordered but insurance declined it She seems to be slightly short of breath even sitting down Her appointment with Pulmonary isn't until end of next month I am sending [employer] machine script along with DuoNeb to take Q 8 as needed for shortness a breath She is already on Advair daily Patient is unable to take care of herself, but also not willing to get help from anyone. Family seems to be frustrated as they are trying to help the patient and it is difficult. She is already drinking ensure, insurance does not cover ensure they cover booster which patient do not like. She also continued to smoke. [facility] Medical History Nicotine dependence, cigarettes, uncomplicated Anal itching Vaginal discharge Colonoscopy refused Palpitation Colon cancer screening Non-compliance Anorexia nervosa Underweight Urinary urgency Eczema Mammogram declined Surgical History History of cervical biopsy History of tonsillectomy History of surgery on arm Family History Father Family history unknown Mother COPD (chronic obstructive pulmonary disease) Sister No problems noted. Sister COPD (chronic obstructive pulmonary disease) Social History Household Members: None Housing: Apartment Do you presently have visiting nurse or other home services: No Alcohol intake: current Alcohol intake frequency: 0-2 drinks per day Alcohol type: hard liquor Patient Tobacco Use Status: Current everyday Tobacco user Tobacco use type: Cigarette Cigarettes Per Day: 10 Years Smoked: onset 13yo, 1ppd x 45yrs, now1/2ppd - 40pyh e-Cigarette/Vaping Use: Never Used Second Hand Smoke Exposure: No Substance Use Type: Marijuana service: No Current occupational status: disabled Sexual orientation: Straight/Heterosexual Gender identity: Female Cognitive needs: No Hearing needs: No Vision needs: No Questionnaire Thrive Questionnaire Date Thrive assessed: 07/16/24 AUDIT C Alcohol Use Questionnaire (AUDIT-C) 1. How often do you have a drink containing alcohol?: Never 3. How often do you have six or more drinks on one occasion?: Never Total Score: 0 Score Reviewed/Action Taken: Yes STEVE-7 AMB Questionnaire STEVE-7 Date STEVE - 7 assessed: 07/23/24 Feeling nervous, anxious, or on edge: 0 = Not at all Not being able to stop or control worryin = Not at all Worrying too much about different things: 0 = Not at all Trouble relaxin = Not at all Being so restless that it is hard to sit still: 0 = Not at all Becoming easily annoyed or irritable: 0 = Not at all Feeling afraid as if something awful might happen: 0 = Not at all Total STEVE-7 score (0-4 normal; 5-9 mild; 10-14 moderate; 15-21 severe): 0 Source: Developed by Drs. Ganga Bauer, Brooklyn Benedict, Dionte Puente and colleagues, with an educational albert from [employer] STEVE-7 Assessment Billing STEVE-7 Assessment Tool: STEVE-7 Assessment 40366 Review of Systems Const Denies chills and Denies fever(s) ENT Denies epistaxis and Denies nasal discharge Card Denies chest pain Resp Denies chest congestion and Denies hemoptysis GI Denies diarrhea and Denies nausea Skin/Breast Denies rash Neuro Reports no additional complaints Psych Reports no additional complaints Endo Reports no additional complaints Physical exam (Primary Care) Vital Signs: Last Vital Signs Pulse 101 H 07/23/24 15:24 BP 124/78 07/23/24 15:24 Pulse Ox 92 07/23/24 15:24 Oxygen Delivery Method Room Air 07/23/24 15:24 BMI result Body Mass Index 13.8 Tobacco/Smoking Status: Tobacco use Status Tobacco use date assessed 07/23/24 07/23/24 15:32 Patient Tobacco Use Status Current everyday Tobacco 07/23/24 14:13 Tobacco use type Cigarette 07/23/24 14:13 e-Cigarette/Vaping Use Never Used 07/23/24 14:13 Thrive Assessment: Date of Thrive Assessment Date Thrive assessed 07/16/24 07/23/24 14:13 Const Other: mild shortness a breath sitting down that is baseline for the patient General: cooperative Orientation/consciousness: patient oriented x3 HENMT Head: Yes normocephalic Eyes General: appearance normal, both eyes and all related structures Neck Neck: Yes supple Resp Effort & Inspection: no cough and no stridor Cardio Rhythm: regular rhythm Heart sounds: S1 normal heart sound present and S2 normal heart sound present Skin General skin exam: turgor normal Neuro General: patient oriented x3, tone normal and moves all extremities Extrem Right lower extremity: no edema Left lower extremity: no edema Assessment and Plan Assessment & Plan (1) Hospital discharge follow-up: Code(s): Z09 - Encounter for follow-up examination after completed treatment for conditions other than malignant neoplasm (2) Chronic hypoxic respiratory failure: Code(s): J96.11 - Chronic respiratory failure with hypoxia (3) Severely underweight adult: Comment: BMI 15 ht 5'4 wt 90 # aeb Code(s): R63.6 - Underweight (4) Severe chronic obstructive pulmonary disease: Code(s): J44.9 - Chronic obstructive pulmonary disease, unspecified Plan Patient is 59-year-old female came in today for follow-up from emergency room visit [facility] July 14/2024 Her daughter Gely is here with the patient Patient have severe COPD and started getting more short of breath, she came to urgent care and her sats were 84% on room air Patient is using her Advair and albuterol inhaler at home And continued to smoke half a pack a day On 2 L of oxygen her pulse ox increased to 95% EKG showed normal sinus rhythm 90 beats per minute no ST-T changes Chest x-ray did not show any pneumonia After evaluation patient was admitted with a diagnosis of acute on chronic hypoxic respiratory failure, acute exacerbation of COPD Patient also suffers from bipolar disorder, and is on SSRIs and Seroquel She has been depressed for very long time and we have tried to get her helped multiple times In-hospital patient was given nebulizer treatments and was kept on oxygen also was given steroids and she gradually improved Patient was discharged home with azithromycin and prednisone 40 mg for 4 days She found to be slightly hypokalemic electrolytes were supplemented Patient is back pain, she had neurology appointment for memory deficit But she passed the test, neuropsychological testing was ordered but insurance declined it She seems to be slightly short of breath even sitting down Her appointment with Pulmonary isn't until end of next month I am sending [employer] machine script along with DuoNeb to take Q 8 as needed for shortness a breath She is already on Advair daily Patient is unable to take care of herself, but also not willing to get help from anyone. Family seems to be frustrated as they are trying to help the patient and it is difficult. She is already drinking ensure, insurance does not cover ensure they cover booster which patient do not like. She also continued to smoke. 45 minutes spent in care of this patient including [id number] discussion with the family and the patient Medications: New [updraft machine] As directed 1 ea 0RF J43.1 - Panlobular emphysema ipratropium-albuterol 0.5 mg-3 mg(2.5 mg base)/3 mL 3 mL inhalation Q8H 30 days PRN 90 mL 0RF wheezing J43.1 - Panlobular emphysema Coding Level of Care Code Est Pt Level 5 (21202) Diagnoses Hospital discharge follow-up Z09 Chronic hypoxic respiratory failure J96.11 Severely underweight adult R63.6 Severe chronic obstructive pulmonary disease J44.9 Additional Codes STEVE-7 Assessment Billing - STEVE-7 Assessment Tool: STEVE-7 Assessment [id number] ([id number])
[2024-07-23 15:24] VITALS: BP 124/78; PULSE 101; O2SAT 92; BMI 13.8
== END 2024-07-23 16:27 | disposition home or self-care (01) ==
PROVIDERS: PCP Internal Medicine; Visit Provider Internal Medicine
DX: J96.11 Chronic respiratory failure with hypoxia (principal); J44.9 Chronic obstructive pulmonary disease, unspecified; Z09 Encounter for follow-up examination after completed treatment for conditions other than malignant neoplasm; R63.6 Underweight

== ENCOUNTER → 2024-07-23 15:23 | Outpatient (BNVA) | payer MEDICARE, SELFPAY | PROVIDERS: PCP Internal Medicine; Visit Provider Internal Medicine | DX: J96.11 Chronic respiratory failure with hypoxia (principal); R63.6 Underweight; J44.9 Chronic obstructive pulmonary disease, unspecified | CPT/HCPCS: 96127; 99212 ==

== ENCOUNTER 2024-08-02 19:36 | Outpatient (REF) | payer MEDICARE, SELFPAY ==
--- NOTE | ~2024-08-02 | MR_ITS ---
EXAMINATION: MR BRAIN WITHOUT CONTRAST CLINICAL INFORMATION: Memory loss; follow-up subdural hematoma. 59-year-old female. COMPARISON: MR brain 03/17/2024, 01/31/2024, 01/29/2014. TECHNIQUE: MRI of the brain was obtained using routine sequences without contrast. Examination performed on a 1.5 Tammie Siemens unit using standard sequences. FINDINGS: Dental amalgam creates significant susceptibility artifact as before. There is no diffusion restriction. Continued slight decrease in the tiny left frontoparietal subdural collection, measuring 1.4 mm thickness. No new extra-axial collection. There is no acute intracranial hemorrhage, acute infarction, mass effect, or edema. Ventricles, sulci, and cisterns are minimally diffusely prominent, with more prominent localized atrophy of the anterior and mesial temporal lobes with slight increase in FLAIR signal. There is dilatation of the temporal horns. This has a broad differential. No associated hemosiderin blooming. There is mild atrophy of the and increased signal of the hippocampal structures suggesting bilateral mesial temporal sclerosis. No shift of midline. No abnormal hemosiderin deposition is identified. There are a few scattered punctate and minimally confluent foci of white matter T2 hyperintensity in the periventricular, subcortical, and hemispheric deep white matter, nonspecific, most likely related to small vessel ischemic change. Midline structures appear normally formed. The pituitary gland appears normal. Posterior fossa structures appear normal. Cerebellar tonsils are appropriately located. Major flow voids are preserved within the skull base. The globes and orbital contents demonstrate an old left lamina papyracea fracture. They are otherwise normal. Paranasal sinuses are clear bilaterally. Nasal septum is left deviated with significant spur. The mastoids and tympanic cavities are normally aerated. Extracranial soft tissues demonstrate no abnormalities. No suspicious bone marrow changes are evident. Redemonstration of TM joint degenerative changes right greater than left. Atlantoaxial joint is normal. MR/MR head/brain wo con IMPRESSION: 1. Continued decrease in the size of a tiny 1.4 mm left frontoparietal subdural collection. No underlying mass effect. No additional extra-axial collection. 2. No acute intracranial hemorrhage, acute infarction, mass effect, or edema. 3. Atrophy of the mesial and anterior temporal lobes, with increased signal on FLAIR, associated hippocampal atrophy and increased signal. Differential is broad, but includes entities such as neuro degenerative disease (frontotemporal dementia, Alzheimer's disease, myotonic dystrophy), certain infections such as Herpes or CMG, mesial temporal sclerosis, and other entities such as paraneoplastic syndromes (limbic encephalitis). This appears stable when compared with 01/31/2024. Findings appear new from 01/29/2014. 4. 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 5. Mild global cerebral volume loss and minimal small vessel ischemic change. Electronically signed by: Zan Alonso MD 10/01/2024 09:51 AM EST
== END 2024-08-02 19:37 | disposition home or self-care (01) ==
LOC: HO.MRI 19:36
PROVIDERS: PCP Internal Medicine; Visit Provider Nurse Practitioner Family
DX: S06.5XAA Traumatic subdural hemorrhage with loss of consciousness status unknown, initial encounter (principal); R41.3 Other amnesia
CPT/HCPCS: 70551

== ENCOUNTER → 2024-08-02 19:36 | Outpatient (BNV) | payer MEDICARE, SELFPAY | PROVIDERS: PCP Internal Medicine; Visit Provider Radiology Diagnostic Radiology | DX: R41.3 Other amnesia (principal); Z86.79 Personal history of other diseases of the circulatory system | CPT/HCPCS: 70551 ==

== ENCOUNTER 2024-08-19 16:46 | Outpatient (AMB) | payer MEDICARE, SELFPAY ==
--- NOTE | 2024-08-19 16:52 | MHC.OFFWIV ---
Intake Vital Signs 08/19/24 16:53 BP 110/72 Blood Pressure Location Rt brachial Position Sitting Pulse 96 Pulse Source Pulse Oximeter Pulse Oximetry (%) 96 Oxygen Delivery Method Room Air Intake Visit Reasons: SOB, low o2 Patient Tobacco Use Status: Current everyday Tobacco user Allergies No Known Allergies Allergy (Verified 07/23/24 15:24) HPI HPI Comments History of Present Illness Details Patient presents to the walk-in hypoxic at 72%. Patient is not oxygen dependent at home. EMS is called immediately for transport to the hospital. She denies having any chest pain, fevers or chills but does endorse continue tobacco use. Patient was placed on supplemental oxygen and oxygenation has improved to 90% on 4L via nasal canula. No further intervention is provided at this time as her presentation warrants immediate transfer to the hospital. [facility] Medical History Nicotine dependence, cigarettes, uncomplicated Anal itching Vaginal discharge Colonoscopy refused Palpitation Colon cancer screening Non-compliance Anorexia nervosa Underweight Urinary urgency Eczema Mammogram declined Surgical History History of cervical biopsy History of tonsillectomy History of surgery on arm Family History Father Family history unknown Mother COPD (chronic obstructive pulmonary disease) Sister No problems noted. Sister COPD (chronic obstructive pulmonary disease) Social History Household Members: None Housing: Apartment Do you presently have visiting nurse or other home services: No Alcohol intake: current Alcohol intake frequency: 0-2 drinks per day Alcohol type: hard liquor Patient Tobacco Use Status: Current everyday Tobacco user Tobacco use type: Cigarette Cigarettes Per Day: 10 Years Smoked: onset 13yo, 1ppd x 45yrs, now1/2ppd - 40pyh e-Cigarette/Vaping Use: Never Used Second Hand Smoke Exposure: No Substance Use Type: Marijuana service: No Current occupational status: disabled Sexual orientation: Straight/Heterosexual Gender identity: Female Cognitive needs: No Hearing needs: No Vision needs: No Assessment & Plan Assessment & Plan (1) Hypoxia: Code(s): R09.02 - Hypoxemia Plan: Patient will be transferred to the emergency department for urgent evaluation. Patient is placed on supplemental oxygen for transport. Coding Level of Care Code Est Pt Level 3 (64826) Diagnoses Hypoxia R09.02 Time Spent (min) 10
[2024-08-19 16:53] VITALS: BP 110/72; PULSE 96; O2SAT 96
--- NOTE | 2024-08-19 17:08 | ...WebTmpl.AM.BPCHK ---
Intake Intake Visit Reasons: SOB, low o2 Allergies No Known Allergies Allergy (Verified 07/23/24 15:24) Vital Signs 08/19/24 16:53 08/19/24 17:09 BP 110/72 Blood Pressure Location Rt brachial Position Sitting Pulse 96 98 Pulse Source Pulse Oximeter Pulse Oximeter Pulse Oximetry (%) 96 72 L Oxygen Delivery Method Room Air Room Air Coding
[2024-08-19 17:09] VITALS: PULSE 98; O2SAT 72
== END 2024-08-19 17:07 | disposition home or self-care (01) ==
PROVIDERS: PCP Internal Medicine; Visit Provider Physician Assistant
DX: R09.02 Hypoxemia (principal)

== ENCOUNTER → 2024-08-19 16:46 | Outpatient (BNVA) | payer MEDICARE, SELFPAY | PROVIDERS: PCP Internal Medicine; Visit Provider Physician Assistant | DX: R09.02 Hypoxemia (principal) | CPT/HCPCS: 99212 ==

== ENCOUNTER 2024-08-19 17:32 | Inpatient (IN) | payer MEDICARE, SELFPAY ==
--- NOTE | ~2024-08-19 | XR_ITS ---
EXAMINATION: XR CHEST CLINICAL INFORMATION: Shortness of breath COMPARISON: Chest radiographs, most recently 07/14/2024. Chest CT 09/15/2023 TECHNIQUE: Frontal view of the chest was obtained. FINDINGS: There is pulmonary hyperinflation and chronic emphysematous changes of the lungs without focal air space opacity identified. There is no pleural effusion or pneumothorax. There are left-sided pleural plaques which are unchanged from priors. The cardiomediastinal contours are within normal limits. Partially visualized hardware from a prior left humeral fixation is seen. XR/XR chest 1V IMPRESSION: Chronic emphysematous changes and pulmonary hyperinflation. Superimposed obstructive process/exacerbation could be considered. Electronically signed by: Vivek De La Rosa MD 08/19/2024 07:14 PM EDT RP
[2024-08-19 17:36] VITALS: BP 100/72; BP 130/87; PULSE 100; PULSE 102; RESP 20; TEMP 37.1; O2SAT 72; O2SAT 93; BMI 13.9
--- NOTE | 2024-08-19 17:44 | ED_ITS ---
HPI - General Adult General Chief complaint: Dyspnea Stated complaint: Low o2 from urgent care Time Seen by Provider: 08/19/24 17:44 History of Present Illness ED Provider: Lucho FERRARA narrative: The patient is a 59-year-old female with a history of significant COPD. She was most recently hospitalized for COPD last month. She is a smoker who continues to smoke. Apparently her daughter took her to an urgent care today because the daughter thought the patient seemed short of breath. The urgent care measured her oxygen saturation is 70% on room air and called 911. Patient was placed on oxygen and transferred to the hospital. The patient is a very vague historian and could not tell me how long she has been feeling worse. She does not think she has had a fever. She says she has a chronic cough. She says that she brings up some sputum but she does not know what it looks like. No significant chest pain. No pain or swelling in her legs. The patient says she has no plans to stop smoking. Related Data Previous Rx's ?Medication ?Instructions ?Recorded valacyclovir 500 mg tablet 500 mg PO ONCE cold sores 90 days 12/21/23 #90 tabs food supplemt, lactose-reduced 1 ea PO QID #3,792 mL 02/13/24 (Ensure oral liquid) hydrocortisone 1 % topical cream 1 appl topical BID PRN skin 02/20/24 irritation #28.35 grams albuterol sulfate 90 mcg/actuation 2 puff inhalation Q4-6H PRN 02/27/24 aerosol inhaler shortness of breath or wheezing 30 days #8.5 grams tiotropium bromide 18 mcg capsule 1 cap inhalation DAILY SEVERE COPD 02/27/24 with inhalation device (Spiriva 30 days #30 inhalations with HandiHaler) megestrol 40 mg tablet 40 mg PO DAILY 90 days #90 tabs 03/06/24 fluticasone 250 mcg-salmeterol 50 1 inh inhalation BID copd 30 days 06/03/24 mcg/dose blistr powdr for #60 ea inhalation (Wixela Inhub) quetiapine 25 mg tablet (Seroquel) 25 mg PO BEDTIME 90 days #90 tabs 06/23/24 sertraline 50 mg tablet 50 mg PO DAILY #90 tabs 06/23/24 azithromycin 250 mg tablet 250 mg PO DAILY 4 days #4 tabs 07/16/24 (Zithromax) folic acid 1 mg tablet 1 mg PO DAILY #30 tabs 07/16/24 multivitamin (Daily-Yoshi tablet) 1 tab PO DAILY #30 tabs 07/16/24 prednisone 20 mg tablet 40 mg (2 x 20 mg) PO DAILY #8 tabs 07/16/24 thiamine mononitrate (vit B1) 100 100 mg PO DAILY #30 tabs 07/16/24 mg tablet bisacodyl 5 mg tablet,delayed 20 mg (4 x 5 mg) PO ONCE 1 day #4 07/21/24 release (Dulcolax (bisacodyl)) tabs polyethylene glycol 3350 17 238 g PO ONCE 1 day #238 grams 07/21/24 gram/dose oral powder (Miralax) nebulizer with all supplies #1 ea 08/06/24 ipratropium 0.5 mg-albuterol 3 mg 3 ml inhalation Q8H PRN wheezing 08/11/24 (2.5 mg base)/3 mL nebulization 30 days #90 mL soln Allergies Allergy/AdvReac Type Severity Reaction Status Date / Time No Known Allergies Allergy Verified 08/19/24 17:42 Review of Systems 2 Review of Systems: Yes all other systems are reviewed and are negative PMFSH Past Medical History Medical History Nicotine dependence, cigarettes, uncomplicated Anal itching Vaginal discharge Colonoscopy refused Palpitation Colon cancer screening Non-compliance Anorexia nervosa Underweight Urinary urgency Eczema Mammogram declined Surgical History History of cervical biopsy History of tonsillectomy History of surgery on arm Family History Family History Father Family history unknown Mother COPD (chronic obstructive pulmonary disease) Sister No problems noted. Sister COPD (chronic obstructive pulmonary disease) Social History Social History Household Members: None Housing: Apartment Do you presently have visiting nurse or other home services: No Alcohol intake: current Alcohol intake frequency: 0-2 drinks per day Alcohol type: hard liquor Patient Tobacco Use Status: Current everyday Tobacco user Tobacco use type: Cigarette Cigarettes Per Day: 10 Years Smoked: onset 13yo, 1ppd x 45yrs, now1/2ppd - 40pyh Smoked in Last 30 Days: Yes e-Cigarette/Vaping Use: Never Used Second Hand Smoke Exposure: No Use of substances other than those prescribed or required for medical reasons: No Substance Use Type: Marijuana Advance Directives: No Advance Directives Information Provided: Yes Do you have a plan to hurt others: No Plan service: No Current occupational status: disabled Sexual orientation: Straight/Heterosexual Gender identity: Female Cognitive needs: No Hearing needs: No Vision needs: No Physical Exam ED Vital Signs: Vital Signs - 24 hr 08/19/24 17:36 08/19/24 17:45 08/19/24 19:10 Temperature 98.7 F 98.7 F 98.7 F Pulse Rate 102 H 102 H 98 Respiratory Rate 20 20 15 Blood Pressure 130/87 130/87 142/77 H Pulse Oximetry 93 93 94 Oxygen Delivery Method Nasal Cannula Nasal Cannula Nasal Cannula Oxygen Flow Rate 2 08/19/24 20:20 Temperature Pulse Rate Respiratory Rate 18 Blood Pressure Pulse Oximetry Oxygen Delivery Method Oxygen Flow Rate BMI result Body Mass Index 13.9 Const Other: The patient is a cachectic 59-year-old who looks quite chronically ill. She has some mild increased work of breathing but no gross increased work of breathing. She does not seem toxic or in distress. HENMT Other: Face is symmetrical. Mucous membranes moist. Eyes General: appearance normal, both eyes and all related structures Neck Other: The patient has prominent external jugular veins but no paige JVD. Resp Other: Mild increased work of breathing. Markedly diminished air entry bilaterally. No asymmetry. No crackles. Cardio Rate: tachycardic Rhythm: regular rhythm Heart sounds: S1 normal heart sound present and S2 normal heart sound present GI Other: Abdomen is soft and nontender Skin Other: Skin is pale and dry Neuro Other: The patient is awake and alert. Her mental status seems reasonably good. She does not seem frankly disoriented or confused. Cranial nerves 2-12 are grossly intact. She moves her extremities symmetrically. Extrem Other: No calf swelling or tenderness. Medications Administered Discontinued Medications Generic Name Dose Route Start Last Admin Trade Name Freq PRN Reason Stop Dose Admin Albuterol Sulfate 5 mg/ 0 mg 08/19/24 17:47 08/19/24 17:49 Albuterol/Ipratropium 3 ml INHALE 08/19/24 17:48 1 each ONCE ONE Administration Azithromycin 500 mg/ Sodium 250 mls @ 125 mls/hr 08/19/24 19:13 08/19/24 19:45 Chloride IV 08/19/24 21:12 125 mls/hr ONCE ONE Administration Methylprednisolone Sodium Succinate 80 mg 08/19/24 17:57 08/19/24 18:39 Methylprednisolone Sod Succ 125 Mg/2 Ml Vial IVPUSH 08/19/24 17:58 80 mg ONCE ONE Administration Quetiapine Fumarate 25 mg 08/19/24 19:56 08/19/24 20:05 Quetiapine Fumarate 25 Mg Tablet PO 08/19/24 19:57 25 mg ONCE ONE Administration Medical Decision Making Medical Decision Making [facility] Narrative: The patient is a long-term smoker who still smokes with a history of severe COPD. She is not on oxygen at home. Her daughter was concerned that she seemed short of breath today and took her to an urgent care center where she was found to be quite hypoxic with an O2 sat of 70% on room air. Here the patient has markedly diminished air entry. She does not seem toxic or septic. She has a somewhat odd personality but I do not think she has frankly encephalopathic. The patient's VBG shows a pH of 7.33 with a pCO2 of 87. This seems to be a reasonably well compensated respiratory acidosis. Her serum carbon dioxide is 44. There is no report of fever. The patient has a normal white count and a normal CRP. I do not think she is septic. Her BUN is higher than when last checked and her hemoglobin is also higher. I suspect she is dehydrated. The patient was treated with a bronchodilator [facility]. She was treated with IV steroids. She was treated with IV azithromycin. She will also be given IV fluids. I discussed the case with the hospitalist who requested that the patient be placed on BiPAP for a couple of hours in the emergency room prior to admission to the medical floor. Lab Data 08/19/24 18:14 08/19/24 18:14 Labs: Lab Results 08/19/24 08/19/24 Range/Units 18:14 18:40 WBC 7.6 (4.8-10.8) X10*3/uL RBC 4.55 D (4.20-5.50) X10*6/uL Hgb 14.7 D (12.0-16.0) g/dl Hct 44.9 D (37.0-47.0) % MCV 98.7 H (80.0-98.0) fL MCH 32.3 (27.0-33.0) pg MCHC 32.7 (31.0-35.0) g/dl RDW 12.9 (11.0-16.0) % Plt Count 276 (160-400) X10*3/uL MPV 9.9 (9.4-12.3) fL Immature Gran % (Auto) 0.4 (0.0-0.4) % Neut % (Auto) 76.0 H (45-73) % Lymph % (Auto) 15.1 L (20-40) % [place] % (Auto) 7.1 (2-11) % Eos % (Auto) 0.7 (0-4) % Baso % (Auto) 0.7 (0-2) % Lymph # (Auto) 1.2 (1.2-4.9) X10*3/uL [place] # (Auto) 0.5 (0.1-1.2) X10*3/uL Eos # (Auto) 0.1 (0.0-0.4) X10*3/uL Baso # (Auto) 0.1 (0.0-0.2) X10*3/uL Abs Immat Gran (auto) 0.03 (0.00-0.03) X10*3/uL Absolute Neuts (auto) 5.8 (2.0-8.3) x10*3/uL Absolute Nucleated RBC 0.000 (0.0-0.012) X10*3/uL Nucleated RBC % (auto) 0.0 (0.0-0.2) /100WBC VBG pH 7.33 (7.32-7.43) VBG pCO2 87 mmHg VBG pO2 45 mmHg VBG HCO3 46 H (22-26) mmol/L VBG O2 Saturation 70.0 % VBG Base Excess 15.7 mmol/L Sodium 148 H (135-145) mmol/L Potassium 3.5 (3.3-5.1) mmol/L Chloride 99 (96-108) mmol/L Carbon Dioxide 44 H* D (22-29) mmol/L Anion Gap 9 L (12-20) BUN 13 (9-16) mg/dL Creatinine 0.74 (0.5-1.4) mg/dL Estim Creat Clear Calc 46.3 Estimated GFR > 60 Random Glucose 153 H (60-115) mg/dL Calcium 9.9 D (8.4-10.2) mg/dL Magnesium 1.9 (1.6-2.6) mg/dL Total Bilirubin 0.2 (0.0-1.0) mg/dL Direct Bilirubin < 0.2 (0.0-0.5) mg/dL AST 21 (5-31) U/L ALT 19 (0-31) U/L Alkaline Phosphatase 29 L (39-117) U/L Troponin I High Sens 15.7 D (<3.5-17.0) ng/L C-Reactive Protein 0.11 (< or = 0.50) mg/dL B-Natriuretic Peptide 97 (<100) pg/mL Total Protein 7.0 (6.5-8.0) g/dL Albumin 4.3 (3.5-5.0) g/dL Ethyl Alcohol < 10 mg/dL Influenza Type A (PCR) NEGATIVE (Negative) Influenza Type B (PCR) NEGATIVE (Negative) RSV RNA Qual (PCR) NEGATIVE (Negative) SARS-CoV-2 RNA (RT-PCR) NEGATIVE (Negative) Critical Care Time Critical Care Time Critical Care Time: Yes Total Critical Care Time: 35 Attestation: The patient was critically ill with a high probability of imminent or life- threatening deterioration. ?I spent greater than 30 minutes of discontinuous time evaluating the patient, delivering critical care at the bedside, discussing evaluating data with consultants. ?Critical care time does not include time spent performing separately billable procedures or teaching. ?Time spent performing critical care with 35 minutes. Discharge Plan Discharge Patient Disposition: Admitted As Inpatient Prescriptions: No Action Ensure Liquid 1 ea PO QID Qty: 3792 12RF albuterol sulfate 90 mcg/actuation HFA aerosol inhaler 2 puff inhalation Q4-6H PRN (Reason: shortness of breath or wheezing) 30 Days Qty: 8.5 3RF tiotropium bromide [Spiriva with HandiHaler] 18 mcg capsule, w/inhalation device 1 cap inhalation DAILY 30 Days Qty: 30 2RF Rx Instructions: puncture 1 cap using device; one dose = 2 inhalations megestrol 40 mg tablet 40 mg PO DAILY 90 Days Qty: 90 3RF fluticasone propion-salmeterol [Wixela Inhub] 250-50 mcg/dose blister with device 1 inh inhalation BID 30 Days Qty: 60 3RF quetiapine [Seroquel] 25 mg tablet 25 mg PO BEDTIME 90 Days Qty: 90 1RF sertraline 50 mg tablet 50 mg PO DAILY Qty: 90 1RF bisacodyl [Dulcolax (bisacodyl)] 5 mg tablet,delayed release (DR/EC) 20 mg PO ONCE 1 Days Qty: 4 0RF Rx Instructions: take at noon the day before colonoscopy polyethylene glycol 3350 [Miralax] 17 gram/dose powder 238 g PO ONCE 1 Days Qty: 238 0RF Rx Instructions: Take as directed by mouth the day before your procedure. (DME) nebulizer with all supplies See Rx Instructions .Route .MEDSUPPLY Qty: 1 0RF Rx Instructions: As directed ipratropium-albuterol 0.5 mg-3 mg(2.5 mg base)/3 mL solution for nebulization 3 ml inhalation Q8H PRN (Reason: wheezing) 30 Days Qty: 90 0RF folic acid 1 mg Tablet 1 mg PO DAILY Qty: 30 0RF thiamine mononitrate (vit B1) 100 mg Tablet 100 mg PO DAILY Qty: 30 0RF multivitamin [Daily-Yoshi] Tablet 1 tab PO DAILY Qty: 30 0RF prednisone 20 mg tablet 40 mg PO DAILY Qty: 8 0RF azithromycin [Zithromax] 250 mg tablet 250 mg PO DAILY 4 Days Qty: 4 0RF valacyclovir 500 mg tablet 500 mg PO ONCE 90 Days Qty: 90 3RF hydrocortisone 1 % cream 1 appl topical BID PRN (Reason: skin irritation) Qty: 28.35 0RF Print Language: Nigerien
[2024-08-19 17:45] VITALS: BP 130/87; PULSE 102; RESP 20; TEMP 37.1; O2SAT 93
[2024-08-19] MEDS: Albuterol Sulfate 5 MG, Albuterol/Iprat 2.5/0.5MG 3 ML 3 ML INHALE (17:49)
--- NOTE | 2024-08-19 17:57 | ECG_ITS ---
Test Reason : SOB Blood Pressure : / mmHG Vent. Rate : 100 BPM Atrial Rate : 100 BPM P-R Int : 106 ms QRS Dur : 078 ms QT Int : 346 ms P-R-T Axes : 044 113 073 degrees QTc Int : 446 ms Sinus rhythm with short NH Right axis deviation Nonspecific T wave abnormality Abnormal ECG When compared with ECG of 14-JUL-2024 19:20, No significant change was found Referred By: Colten Yepez Electronically Signed By:Marlon Grider
[2024-08-19 18:22] LABS: MANUAL DIFF FLAG NO
--- NOTE | 2024-08-19 18:23 | PC.NURSE ---
20G inserted to pt.'s LAC. Good blood return. Tolerated well.
[2024-08-19 18:28] LABS: Basophils Absolute Auto 0.1 X10*3/uL (0.0-0.2); Basophils Percent Auto 0.7 % (0-2); Eosinophils Absolute Auto 0.1 X10*3/uL (0.0-0.4); Eosinophils Percent Auto 0.7 % (0-4); Hematocrit 44.9 % (37.0-47.0); Hemoglobin 14.7 g/dl (12.0-16.0); Imm Gran Abs Auto 0.03 X10*3/uL (0.00-0.03); Imm Gran Pct Auto 0.4 % (0.0-0.4); Lymphocytes Absolute Auto 1.2 X10*3/uL (1.2-4.9); Lymphocytes Percent Auto 15.1 % (20-40); Mean Corpuscular HGB Conc 32.7 g/dl (31.0-35.0); Mean Corpuscular Hemoglobin 32.3 pg (27.0-33.0); Mean Corpuscular Volume 98.7 fL (80.0-98.0); Mean Platelet Volume 9.9 fL (9.4-12.3); Monocytes Absolute Auto 0.5 X10*3/uL (0.1-1.2); Monocytes Percent Auto 7.1 % (2-11); Neutrophils Absolute Auto 5.8 x10*3/uL (2.0-8.3); Platelet Count 276 X10*3/uL (160-400); Red Blood Count 4.55 X10*6/uL (4.20-5.50); Red Cell Distribution Width 12.9 % (11.0-16.0); White Blood Count 7.6 X10*3/uL (4.8-10.8)
[2024-08-19] MEDS: methylPREDNISolone Sod Succ 125 MG/2 ML VIAL 80 MG IVPUSH (18:39)
[2024-08-19 18:43] LABS: Venous Blood Gas Refer to POC result
[2024-08-19 18:44] LABS: VBG Base Excess 15.7 mmol/L; VBG HCO3 46 mmol/L (22-26); VBG pCO2 87 mmHg; VBG pH 7.33 (7.32-7.43); VBG pO2 45 mmHg
[2024-08-19 18:54] LABS: Troponin-I High Sensitivity 15.7 ng/L (<3.5-17.0)
[2024-08-19 18:57] LABS: Alanine Aminotransferase 19 U/L (0-31); Albumin Level 4.3 g/dL (3.5-5.0); Alkaline Phosphatase 29 U/L (39-117); Anion Gap 9 (12-20); Aspartate Amino Transferase 21 U/L (5-31); Bilirubin Direct < 0.2 mg/dL (0.0-0.5); Bilirubin Total 0.2 mg/dL (0.0-1.0); Blood Urea Nitrogen 13 mg/dL (9-16); C Reactive Protein 0.11 mg/dL (< or = 0.50); Calcium 9.9 mg/dL (8.4-10.2); Carbon Dioxide 44 mmol/L (22-29); Chloride 99 mmol/L (96-108); Creatinine Clr Calc Pharmacy 46.3; Estimated Glomerular Filt Rate > 60; Ethanol < 10 mg/dL; Glucose Random 153 mg/dL (60-115); Magnesium 1.9 mg/dL (1.6-2.6); Potassium 3.5 mmol/L (3.3-5.1); Sodium 148 mmol/L (135-145)
[2024-08-19 19:02] LABS: Influenza A PCR NEGATIVE (Negative); Influenza B PCR NEGATIVE (Negative); Resp Syncy Virus RNA Qual PCR NEGATIVE (Negative); SARS COV2 PCR INHOUSE NEGATIVE (Negative)
[2024-08-19 19:04] LABS: B Type Natriuretic Peptide 97 pg/mL (<100)
[2024-08-19 19:10] VITALS: BP 142/77; PULSE 98; RESP 15; TEMP 37.1; O2SAT 94
--- NOTE | 2024-08-19 19:11 | PC.NURSE ---
this rn assumed care of patient. pt a&ox4, vss, respirations even and unlabored. pt denies pain and sob at this time. pt daughter at bedside. pt on 2L nasal cannula baseline
[2024-08-19] MEDS: Azithromycin 500 MG in 0.9 % Sodium Chloride 250 ML 125 MG IV (19:45)
--- NOTE | 2024-08-19 19:51 | PC.NURSE ---
per , blood cultures not needed prior to antibiotic administration. at bedside, plan for BIPAP for the pt.
[2024-08-19] MEDS: QUEtiapine Fumarate 25 MG TABLET PO (20:05)
[2024-08-19 20:20] VITALS: PULSE 96; RESP 18; O2SAT 93
--- NOTE | 2024-08-19 20:24 | PC.NURSE ---
respiratory at bedside to place pt on bipap
[2024-08-19 21:57] VITALS: PULSE 96; RESP 18; O2SAT 91
[2024-08-19] MEDS: Lactated Ringers 500 ML 999 ML IV (22:00)
--- NOTE | 2024-08-19 22:26 | PHA.MEDREC ---
Addendum entered by Marcelo Doshi miguelito 08/19/24 22:39: med rec reviewed Original Note: Pharmacy Consult ? Medication Reconciliation Pharmacy has completed the medication reconciliation. Spoke to daughter over the phone and she was able to confirm her moms medications. She confirmed her mom is still taking the Tritropium [place] 18mcg caps with inhalation device and shes been doing it daily consistently and has been filling it at [facility] on [address] in [place]. I was able to call the pharmacy and they confirmed they last filled that 02/27 for 30 days and nothing else since. She also confirmed her mom had a colonoscopy appointment around 07/21-07/23 but states she canceled it since her mom was not doing well with the fasting and didn't not think she would do well taking the powder prep. She states her mom finished the Folic Acid and Vitamin B1 tab last and states she has no intentions to continue that medication. She states her mom finished the Azithromycin 250mg and Prednisone 20mg regimens about a month ago. The daughter confirmed the mom stopped taking the MultiVitamin (DailyVite) tab about a month ago bart to get getting put on the Folic Acid and Vitamin B-1, the daughter states she is going to have her mom start taking it again th soon. She states her mom took her medication yesterday.
[2024-08-19 22:55] LABS: Venous Blood Gas Refer to POC result
[2024-08-19 22:56] LABS: VBG Base Excess 15.5 mmol/L; VBG HCO3 42 mmol/L (22-26); VBG pCO2 64 mmHg; VBG pH 7.42 (7.32-7.43); VBG pO2 70 mmHg
--- NOTE | 2024-08-19 23:13 | PC.NURSE ---
per plan to keep pt on bipap.
[2024-08-20] VITALS (17 sets, daily range): BP systolic 99–119; BP diastolic 56–77; PULSE 88–107; RESP 16–20; TEMP 36.6–37.6; O2SAT 76–99; BMI 16.1
--- NOTE | 2024-08-20 04:12 | P.HPHOSP_ITS ---
History of Present Illness Date of Service: 08/20/24 Chief Complaint: Dyspnea This is a 59-year-old female with pertinent history of COPD not on home oxygen, tobacco use disorder, bipolar disorder, protein energy malnutrition who presents to the emergency department for evaluation of dyspnea. Patient states the dyspnea has been ongoing for a while but the daughter saw that she was more short of breath on the day of presentation and got the patient to urgent care. Patient was satting in the 70s and patient was sent to the ER on supplemental oxygen. Patient does endorse cough which is productive with whitish sputum production. No sick contacts. No fever, chills, chest pain or palpitations. Patient continues to smoke cigarettes. No nausea, vomiting, abdominal pain, changes in urinary or bowel habits. In the emergency department, patient initially required BiPAP and was placed on supplemental oxygen. Given IV steroids and DuoNebs in the ER. Review of Systems 2 Constitutional: Constitutional: Reports fatigue Cardiovascular: Cardiovascular: Reports dyspnea on exertion Respiratory: Respiratory: Reports cough, Reports dyspnea on exertion and Reports wheezing Gastrointestinal: Gastrointestinal: Reports no additional gastrointestinal complaints Genitourinary: Genitourinary: Reports no additional female genitourinary complaints Endocrine: Endocrine: Reports fatigue Allergic/Immunologic: Allergic/Immunologic: Reports wheezing [facility] Medical History Acute on chronic hypoxic respiratory failure Nicotine dependence, cigarettes, uncomplicated Anal itching Vaginal discharge Colonoscopy refused Palpitation Colon cancer screening Non-compliance Anorexia nervosa Underweight Urinary urgency Eczema Mammogram declined Family History Father Family history unknown Mother COPD (chronic obstructive pulmonary disease) Sister No problems noted. Sister COPD (chronic obstructive pulmonary disease) Surgical History History of cervical biopsy History of tonsillectomy History of surgery on arm Social History Household Members: None Housing: Apartment Do you presently have visiting nurse or other home services: No Alcohol intake: current Alcohol intake frequency: 0-2 drinks per day Alcohol type: hard liquor Patient Tobacco Use Status: Current everyday Tobacco user Tobacco use type: Cigarette Cigarettes Per Day: 10 Years Smoked: onset 13yo, 1ppd x 45yrs, now1/2ppd - 40pyh Smoked in Last 30 Days: Yes e-Cigarette/Vaping Use: Never Used Second Hand Smoke Exposure: No Use of substances other than those prescribed or required for medical reasons: No Substance Use Type: Marijuana Advance Directives: No Advance Directives Information Provided: Yes Do you have a plan to hurt others: No Plan service: No Current occupational status: disabled Sexual orientation: Straight/Heterosexual Gender identity: Female Cognitive needs: No Hearing needs: No Vision needs: No Meds Allergies Allergy/AdvReac Type Severity Reaction Status Date / Time No Known Allergies Allergy Verified 08/19/24 17:42 Home Medications ?Medication ?Instructions ?Recorded ?Confirmed ?Last Taken ?Type valacyclovir 500 mg tablet 500 mg PO ONCE PRN cold sores 08/19/24 08/19/24 08/18/24 History Physical Exam 2 Vital Signs and Narrative: Vital Signs: Last Vital Signs Temp 98.3 F 08/20/24 03:04 Pulse 95 08/20/24 03:04 Resp 20 08/20/24 03:21 BP 108/63 08/20/24 03:04 Pulse Ox 93 08/20/24 03:04 O2 Del Method BiPAP 08/20/24 03:04 O2 Flow Rate 30 08/19/24 21:57 FiO2 30 08/20/24 03:04 Oxygen Flow Rate 4 08/19/24 17:36 BMI result Body Mass Index 13.9 Middle-aged female lying in bed in mild distress on supplemental oxygen Neck supple, no JVD Regular rate and rhythm, S1-S2 heard Bilateral wheezing appreciated Abdomen soft nontender, no guarding, no rigidity Patient is awake, alert and oriented to self, place, time and person ; no focal motor deficit Psych: Normal mood No pedal edema Results Labs 08/19/24 18:14 08/19/24 18:14 Labs: Laboratory Results - last 24 hr 08/19/24 08/19/24 08/19/24 18:14 18:40 22:52 MCV 98.7 H MCH 32.3 MCHC 32.7 RDW 12.9 Plt Count 276 MPV 9.9 Immature Gran % (Auto) 0.4 Neut % (Auto) 76.0 H Lymph % (Auto) 15.1 L [place] % (Auto) 7.1 Eos % (Auto) 0.7 Baso % (Auto) 0.7 Lymph # (Auto) 1.2 [place] # (Auto) 0.5 Eos # (Auto) 0.1 Baso # (Auto) 0.1 Abs Immat Gran (auto) 0.03 Absolute Neuts (auto) 5.8 Absolute Nucleated RBC 0.000 Nucleated RBC % (auto) 0.0 VBG pH 7.33 7.42 VBG pCO2 87 64 VBG pO2 45 70 VBG HCO3 46 H 42 H VBG O2 Saturation 70.0 96.0 VBG Base Excess 15.7 15.5 Anion Gap 9 L Estim Creat Clear Calc 46.3 Estimated GFR > 60 Random Glucose 153 H Calcium 9.9 D Magnesium 1.9 Total Bilirubin 0.2 Direct Bilirubin < 0.2 AST 21 ALT 19 Alkaline Phosphatase 29 L Troponin I High Sens 15.7 D C-Reactive Protein 0.11 B-Natriuretic Peptide 97 Total Protein 7.0 Albumin 4.3 Ethyl Alcohol < 10 Influenza Type A (PCR) NEGATIVE Influenza Type B (PCR) NEGATIVE RSV RNA Qual (PCR) NEGATIVE SARS-CoV-2 RNA (RT-PCR) NEGATIVE Imaging Radiologist's Impressions: Impressions Chest X-Ray 08/19/24 17:57 IMPRESSION: Chronic emphysematous changes and pulmonary hyperinflation. Superimposed obstructive process/exacerbation could be considered. Electronically signed by: Vivek De La Rosa MD 08/19/2024 07:14 PM EDT RP Assessment and Plan (1) Acute exacerbation of chronic obstructive pulmonary disease: Status: Acute (2) Hypoxia: Status: Acute Plan This is a 59-year-old female with pertinent history of COPD not on home oxygen, tobacco use disorder, bipolar disorder, protein energy malnutrition who presents to the emergency department for evaluation of dyspnea. #. Acute hypoxic respiratory failure due to acute exacerbation of COPD: Will admit patient with supplemental oxygen. Monitor and wean as tolerated. Initiating scheduled and p.r.n. DuoNebs. Continue home inhaler. Also initiating systemic steroids. Azithromycin for pleiotropic effect #. Mood disorder: Continue sertraline and Seroquel #. Tobacco use disorder: Counseled regarding cessation. Refused nicotine patch. Nicotine gum p.r.n. #. Protein energy malnutrition: On megestrol. Consulting nutrition Med rec pending DVT prophylaxis: Lovenox Full code Admit as inpatient and will require two night minimum hospital stay for supplemental oxygen, close monitoring of respiratory status (as above), which is not possible in a lesser acute setting. Quality Stroke Does the patient have a stroke diagnosis?: No VTE Prior VTE?: No VTE Risk Level:: Medical - moderate - high VTE Device Contraindication: Treatment Not Indicated VTE Drug Contraindication: N/A - Med Ordered
--- NOTE | 2024-08-20 04:19 | PC.NURSE ---
pt removed from bipap per request at this time, pt placed on 3L nasal cannula sating 90-93%.
[2024-08-20 04:23] LABS: MANUAL DIFF FLAG NO
[2024-08-20 04:24] LABS: Basophils Percent Auto 0.2 % (0-2); Hematocrit 38.2 % (37.0-47.0); Hemoglobin 12.4 g/dl (12.0-16.0); Imm Gran Abs Auto 0.01 X10*3/uL (0.00-0.03); Imm Gran Pct Auto 0.2 % (0.0-0.4); Lymphocytes Absolute Auto 0.5 X10*3/uL (1.2-4.9); Lymphocytes Percent Auto 12.6 % (20-40); Mean Corpuscular HGB Conc 32.5 g/dl (31.0-35.0); Mean Corpuscular Hemoglobin 31.6 pg (27.0-33.0); Mean Corpuscular Volume 97.2 fL (80.0-98.0); Mean Platelet Volume 9.6 fL (9.4-12.3); Monocytes Percent Auto 0.7 % (2-11); Neutrophils Absolute Auto 3.6 x10*3/uL (2.0-8.3); Neutrophils Percent Auto 86.3 % (45-73); Platelet Count 239 X10*3/uL (160-400); Red Blood Count 3.93 X10*6/uL (4.20-5.50); Red Cell Distribution Width 12.8 % (11.0-16.0); SCAN SMEAR FLAG 1; White Blood Count 4.1 X10*3/uL (4.8-10.8)
[2024-08-20 04:54] LABS: Anion Gap 11 (12-20); Blood Urea Nitrogen 13 mg/dL (9-16); Calcium 9.1 mg/dL (8.4-10.2); Carbon Dioxide 36 mmol/L (22-29); Chloride 103 mmol/L (96-108); Creatinine Clr Calc Pharmacy 51.9; Estimated Glomerular Filt Rate > 60; Glucose Random 136 mg/dL (60-115); Potassium 4.1 mmol/L (3.3-5.1); Sodium 146 mmol/L (135-145)
--- NOTE | 2024-08-20 06:23 | MHC.EDTECH ---
patient refused to change into hospital gown. RN aware
--- NOTE | 2024-08-20 06:33 | PC.NURSE ---
pt refusing to change into hospital gown at this time.
--- NOTE | 2024-08-20 07:17 | PC.NURSE ---
Care of Pt assumed at change of shift. Pt is resting quietly at this time with TV on and family at bedside. VSS; NAD noted. Breakfast tray provided. Pt offerers no complaints at this time. Pt awaiting room assignment.
[2024-08-20] MEDS: Albuterol/Iprat 2.5/0.5MG 3 ML AMPUL.NEB INHALE ×3 (07:36→18:50)
[2024-08-20] MEDS: 0.9 % Sodium Chloride Flush 3 ML SYRINGE IVFLUSH ×3 (08:15→20:24)
[2024-08-20] MEDS: predniSONE 20 MG TABLET 40 MG PO (08:17)
[2024-08-20] MEDS: Enoxaparin Sodium 30 MG/0.3 ML SYRINGE SUBCUT (08:17)
--- NOTE | 2024-08-20 10:39 | MHC.CM.PN ---
IMM 08/20/24, Pt lives alone, she has MOW from [facility] and some help with city recorder. HCP is on file and confirmed, names her dtr Cuca. PCP is confirmed: Vito Beal. Pt does not use DME. She may need assistance with transportation home at [place]. DCP: home, self care, CM to follow for DC needs.
[2024-08-20] MEDS: Sertraline HCL 50 MG TABLET PO (11:04)
[2024-08-20] MEDS: Megestrol Acetate 20 MG TABLET 40 MG PO (11:04)
--- NOTE | 2024-08-20 11:19 | PC.NURSE ---
Patient very anxious and forgetful. Requiring frequent reorienting on situation and hospital environment. Patient found to be smoking at bedside. Cigarettes confiscated and put in patient's chart. Patient educated on no smoking policy. Camera at bedside for safety.
--- NOTE | 2024-08-20 11:29 | P.EN_ITS ---
Event Note Date of Service: 08/20/24 Event Note: Day hospitalist update S: wants to go home has dyspnea + cough + sputum production doesn't recall being on BiPAP in the ED O: Temp Pulse Resp BP Pulse Ox O2 Del Method O2 Flow Rate 99.3 F 102 H 18 119/67 95 Nasal Cannula 3 08/20/24 08:54 08/20/24 08:54 08/20/24 08:54 08/20/24 08:54 08/20/24 08:54 08/20/24 08:54 08/20/24 08:54 FiO2 30 08/20/24 03:04 Gen: mild resp distress HEENT: sclera anicteric, moist mucus membranes Neck: supple Lungs: pursed lip breathing, diminished breath sounds throughout Heart: regular, rapid, no murmurs Abd: soft, non-tender, non-distended Ext: no edema Skin: warm/well-perfused Neuro: alert and oriented x3, no focal findings Psych: appropriate affect Laboratory Results - last 24 hr 08/19/24 08/19/24 08/19/24 18:14 18:40 22:52 WBC 7.6 RBC 4.55 D Hgb 14.7 D Hct 44.9 D MCV 98.7 H MCH 32.3 MCHC 32.7 RDW 12.9 Plt Count 276 MPV 9.9 Immature Gran % (Auto) 0.4 Neut % (Auto) 76.0 H Lymph % (Auto) 15.1 L [place] % (Auto) 7.1 Eos % (Auto) 0.7 Baso % (Auto) 0.7 Lymph # (Auto) 1.2 [place] # (Auto) 0.5 Eos # (Auto) 0.1 Baso # (Auto) 0.1 Abs Immat Gran (auto) 0.03 Absolute Neuts (auto) 5.8 Absolute Nucleated RBC 0.000 Nucleated RBC % (auto) 0.0 VBG pH 7.33 7.42 VBG pCO2 87 64 VBG pO2 45 70 VBG HCO3 46 H 42 H VBG O2 Saturation 70.0 96.0 VBG Base Excess 15.7 15.5 Sodium 148 H Potassium 3.5 Chloride 99 Carbon Dioxide 44 H* D Anion Gap 9 L BUN 13 Creatinine 0.74 Estim Creat Clear Calc 46.3 Estimated GFR > 60 Random Glucose 153 H Calcium 9.9 D Magnesium 1.9 Total Bilirubin 0.2 Direct Bilirubin < 0.2 AST 21 ALT 19 Alkaline Phosphatase 29 L Troponin I High Sens 15.7 D C-Reactive Protein 0.11 B-Natriuretic Peptide 97 Total Protein 7.0 Albumin 4.3 Ethyl Alcohol < 10 Influenza Type A (PCR) NEGATIVE Influenza Type B (PCR) NEGATIVE RSV RNA Qual (PCR) NEGATIVE SARS-CoV-2 RNA (RT-PCR) NEGATIVE 08/20/24 04:19 WBC 4.1 L RBC 3.93 L Hgb 12.4 Hct 38.2 MCV 97.2 MCH 31.6 MCHC 32.5 RDW 12.8 Plt Count 239 MPV 9.6 Immature Gran % (Auto) 0.2 Neut % (Auto) 86.3 H Lymph % (Auto) 12.6 L [place] % (Auto) 0.7 L Eos % (Auto) 0.0 Baso % (Auto) 0.2 Lymph # (Auto) 0.5 L [place] # (Auto) 0.0 L Eos # (Auto) 0.0 Baso # (Auto) 0.0 Abs Immat Gran (auto) 0.01 Absolute Neuts (auto) 3.6 Absolute Nucleated RBC 0.000 Nucleated RBC % (auto) 0.0 VBG pH VBG pCO2 VBG pO2 VBG HCO3 VBG O2 Saturation VBG Base Excess Sodium 146 H Potassium 4.1 Chloride 103 Carbon Dioxide 36 H Anion Gap 11 L BUN 13 Creatinine 0.66 Estim Creat Clear Calc 51.9 Estimated GFR > 60 Random Glucose 136 H Calcium 9.1 D Magnesium Total Bilirubin Direct Bilirubin AST ALT Alkaline Phosphatase Troponin I High Sens C-Reactive Protein B-Natriuretic Peptide Total Protein Albumin Ethyl Alcohol Influenza Type A (PCR) Influenza Type B (PCR) RSV RNA Qual (PCR) SARS-CoV-2 RNA (RT-PCR) A/P: d1 59yo F with COPD not on home O2, tobacco abuse, bipolar, protein calorie malnutrition presenting with dyspnea + hypoxia [70s at Urgent Care], briefly on BiPAP in ED acute hypoxic respiratory failure due to COPD exacerbation - prednisone, scheduled/prn nebs, Breo, Spiriva - supplemental O2, wean as tolerated mood disorder - quetiapine, sertraline tobacco abuse - nicotine replacement malnutrition - megestrol, Nutrition consult VTE prophylaxis - enoxaparin dispo - TBD In my clinical judgment, the patient requires continued hospitalization for the following reasons: hypoxia, resp distress Time Spent With Patient Time: Total time managing care of this patient today ____ minutes.
[2024-08-20] MEDS: Nicotine 14 MG PATCH.TD24 TRANSDERMA (12:01)
--- NOTE | 2024-08-20 12:17 | MHC.CLN ---
PT IS MODERATELY MALNOURISHED PT WITH MILDLY DEPLETED SUBCUTANEOUS FAT AND MUSCLE MASS WITH BMI 16.1 AND CHRONIC POOR PO INTAKE R/T HX ANOREXIA NERVOSA AND BIPOLAR D/O DIET RX: REGULAR -APPROPRIATE PT RECEIVING ENSURE MAX TID WHICH IS A HIGH PROTEIN, LOW SHAKA SUPPLEMENT RECOMMEND CHANGING NUTRITION SUPPLEMENT TO ENSURE BID TO PROVIDE 700KCALS, 40G PROTEIN MONITOR PO INTAKE AND ENCOURAGE SUPPLEMENT SEE ALSO FULL CLINICAL NUTRITION ASSESSMENT
[2024-08-20] MEDS: hydrOXYzine HCL 50 MG TABLET PO (13:36)
[2024-08-20] MEDS: Azithromycin 500 MG in 0.9 % Sodium Chloride 250 ML 125 MG IV (20:23)
[2024-08-20] MEDS: QUEtiapine Fumarate 25 MG TABLET PO (20:23)
[2024-08-21] VITALS (12 sets, daily range): BP systolic 99–128; BP diastolic 61–79; PULSE 75–110; RESP 15–21; TEMP 35.8–37.3; O2SAT 3–99
[2024-08-21 06:41] LABS: Venous Blood Gas Refer to POC result
[2024-08-21 06:43] LABS: VBG Base Excess 17.4 mmol/L; VBG HCO3 46 mmol/L (22-26); VBG pCO2 81 mmHg; VBG pH 7.36 (7.32-7.43); VBG pO2 44 mmHg
[2024-08-21 07:59] LABS: VBG Base Excess 18.1 mmol/L; VBG HCO3 47 mmol/L (22-26); VBG pCO2 79 mmHg; VBG pH 7.38 (7.32-7.43); VBG pO2 47 mmHg
[2024-08-21 07:59] LABS: Venous Blood Gas Refer to POC result
[2024-08-21] MEDS: Albuterol/Iprat 2.5/0.5MG 3 ML AMPUL.NEB INHALE ×3 (07:59→18:47)
[2024-08-21] MEDS: Fluticasone/Vilanterol 100/25 BLST.W.DEV 1 PUFF INHALE (07:59)
[2024-08-21] MEDS: Tiotropium Bromide 2.5 mcg 1 PUFF/2.5 MCG MIST.INHAL INHALE (07:59)
[2024-08-21 08:24] LABS: Hematocrit 39.7 % (37.0-47.0); Hemoglobin 12.5 g/dl (12.0-16.0); Mean Corpuscular HGB Conc 31.5 g/dl (31.0-35.0); Mean Corpuscular Hemoglobin 31.8 pg (27.0-33.0); Mean Platelet Volume 9.9 fL (9.4-12.3); Platelet Count 227 X10*3/uL (160-400); Red Blood Count 3.93 X10*6/uL (4.20-5.50); Red Cell Distribution Width 12.9 % (11.0-16.0); White Blood Count 8.7 X10*3/uL (4.8-10.8)
[2024-08-21] MEDS: predniSONE 20 MG TABLET 40 MG PO (08:34)
[2024-08-21] MEDS: Nicotine 14 MG PATCH.TD24 TRANSDERMA (08:34)
[2024-08-21] MEDS: Megestrol Acetate 20 MG TABLET 40 MG PO (08:35)
[2024-08-21] MEDS: Sertraline HCL 50 MG TABLET PO (08:35)
[2024-08-21] MEDS: 0.9 % Sodium Chloride Flush 3 ML SYRINGE IVFLUSH (08:39)
[2024-08-21 09:01] LABS: Anion Gap 11 (12-20); Blood Urea Nitrogen 20 mg/dL (9-16); Calcium 9.1 mg/dL (8.4-10.2); Carbon Dioxide 40 mmol/L (22-29); Chloride 100 mmol/L (96-108); Creatinine Clr Calc Pharmacy 58.4; Estimated Glomerular Filt Rate > 60; Glucose Random 89 mg/dL (60-115); Potassium 3.6 mmol/L (3.3-5.1); Sodium 147 mmol/L (135-145)
--- NOTE | 2024-08-21 12:22 | P.PNIM_ITS ---
Subjective Subjective Date of Service: 08/21/24 Interval History: Still dyspneic; qualifies for home O2 but was smoking in her room yesterday Says the world is stupid and when it's my time, I'll go but denies active thoughts of harming herself and denies any intent to do so Review of Systems Review of Systems: Yes all other systems are reviewed and are negative Physical Exam 2 Vital Signs: Vital Signs: Last Vital Signs Temp 99.0 F 08/21/24 11:07 Pulse 90 08/21/24 11:23 Resp 17 08/21/24 11:23 BP 99/65 08/21/24 11:07 Pulse Ox 96 08/21/24 11:07 O2 Del Method Nasal Cannula 08/21/24 11:07 O2 Flow Rate 2 08/21/24 11:07 FiO2 30 08/20/24 03:04 Oxygen Flow Rate 4 08/19/24 17:36 BMI result Body Mass Index 16.1 Gen: NAD HEENT: sclera anicteric, moist mucus membranes Neck: supple Lungs: pursed lip breathing, diminished breath sounds throughout Heart: regular, rapid, no murmurs Abd: soft, non-tender, non-distended Ext: no edema Skin: warm/well-perfused Neuro: alert and oriented x3, no focal findings Psych: appropriate affect Objective Data Active Medications Acetaminophen (Acetaminophen 325 Mg Tablet) 650 mg PO Q6H PRN PRN Reason: Pain, Mild (Pain Scale 1-3), fever or headache Albuterol/Ipratropium (Albuterol/Iprat 2.5/0.5mg 3 Ml Ampul.Neb) 3 ml INHALE RQ4H WHILE AWAKE [facility] Last Admin: 08/21/24 11:22 Dose: 3 ml Documented By: MARVIN Albuterol/Ipratropium (Albuterol/Iprat 2.5/0.5mg 3 Ml Ampul.Neb) 3 ml INHALE Q4H PRN PRN Reason: Wheezing Calcium Carbonate (Calcium Carbonate 750 Mg Tab.Chew) 750 mg PO Q4H PRN PRN Reason: Heartburn Enoxaparin Sodium (Enoxaparin Sodium 30 Mg/0.3 Ml Syringe) 30 mg SUBCUT Q24H [facility] Last Admin: 08/21/24 08:39 Dose: Not Given Documented By: AICHA Non-Admin Reason: Patient Refused Fluticasone/Vilanterol (Fluticasone/Vilanterol 100/25 Blst.W.Dev) 1 puff INHALE RDAILY [facility] Last Admin: 08/21/24 07:59 Dose: 1 puff Documented By: MARVIN Hydroxyzine HCl (Hydroxyzine Hcl 50 Mg Tablet) 50 mg PO Q6H PRN PRN Reason: Anxiety Last Admin: 08/20/24 13:36 Dose: 50 mg Documented By: RONI Azithromycin 500 mg/ Sodium (Chloride) 250 mls @ 125 mls/hr IV Q24H [facility] Last Infusion: 08/20/24 22:23 Dose: Infused Documented By: RIDDHI Magnesium Hydroxide (Milk Of Magnesia 30 Ml Oral.Susp) 30 ml PO DAILY PRN PRN Reason: Constipation Megestrol Acetate (Megestrol Acetate 20 Mg Tablet) 40 mg PO DAILY [facility] Last Admin: 08/21/24 08:35 Dose: 40 mg Documented By: AICHA Melatonin (Melatonin 3 Mg Tablet) 6 mg PO BEDTIME PRN PRN Reason: Insomnia Nicotine (Nicotine 14 Mg Patch.Td24) 14 mg TRANSDERMA DAILY [facility] Last Admin: 08/21/24 08:34 Dose: 14 mg Documented By: AICHA Nicotine Polacrilex (Nicotine Polacrilex 2 Mg Gum) 2 mg BUCCAL Q2H PRN PRN Reason: Nicotine Cravings Ondansetron HCl (Ondansetron Hcl 4 Mg/2 Ml Vial) 4 mg IVPUSH Q8H PRN PRN Reason: Nausea and Vomiting Prednisone (Prednisone 20 Mg Tablet) 40 mg PO DAILY [facility] Last Admin: 08/21/24 08:34 Dose: 40 mg Documented By: AICHA Quetiapine Fumarate (Quetiapine Fumarate 25 Mg Tablet) 25 mg PO BEDTIME [facility] Last Admin: 08/20/24 20:23 Dose: 25 mg Documented By: RIDDHI Sertraline HCl (Sertraline Hcl 50 Mg Tablet) 50 mg PO DAILY [facility] Last Admin: 08/21/24 08:35 Dose: 50 mg Documented By: AICHA Sodium Chloride (0.9 % Sodium Chloride Flush 3 Ml Syringe) 3 ml IVFLUSH QSHIFT [facility] Last Admin: 08/21/24 08:39 Dose: 3 ml Documented By: AICHA Tiotropium [place] (Tiotropium [place] 2.5 Mcg 1 Puff/2.5 Mcg Mist.Inhal) 1 puff INHALE RDAILY [facility] Last Admin: 08/21/24 07:59 Dose: 1 puff Documented By: MARVIN Valacyclovir HCl (Valacyclovir Hcl 500 Mg Tablet) 500 mg PO ONCE PRN PRN Reason: cold sores Labs 08/21/24 07:52 08/21/24 07:52 Labs: Laboratory Results - last 24 hr 08/21/24 08/21/24 08/21/24 06:26 06:38 07:52 MCV 101.0 H MCH 31.8 MCHC 31.5 RDW 12.9 Plt Count 227 MPV 9.9 Absolute Nucleated RBC 0.000 Nucleated RBC % (auto) 0.0 Hold Purple Top SEE NOTE VBG pH 7.36 VBG pCO2 81 VBG pO2 44 VBG HCO3 46 H VBG O2 Saturation 74.0 VBG Base Excess 17.4 Anion Gap 11 L Estim Creat Clear Calc 58.4 Estimated GFR > 60 Random Glucose 89 Calcium 9.1 08/21/24 07:55 MCV MCH MCHC RDW Plt Count MPV Absolute Nucleated RBC Nucleated RBC % (auto) Hold Purple Top VBG pH 7.38 VBG pCO2 79 VBG pO2 47 VBG HCO3 47 H VBG O2 Saturation 76.0 VBG Base Excess 18.1 Anion Gap Estim Creat Clear Calc Estimated GFR Random Glucose Calcium Assessment and Plan (1) Acute exacerbation of chronic obstructive pulmonary disease: Status: Acute Assessment and Plan: d2 59yo F with COPD not on home O2, tobacco abuse, bipolar, protein calorie malnutrition presenting with dyspnea + hypoxia [70s at Urgent Care], briefly on BiPAP in ED acute hypoxic respiratory failure due to COPD exacerbation - prednisone, scheduled/prn nebs, Breo, Spiriva - supplemental O2, wean as tolerated. Lives alone and has cognitive impairment and was smoking in room yesterday so best to try not to send home on O2. PT eval pending as well. mood disorder - quetiapine, sertraline tobacco abuse - nicotine replacement moderate protein-calorie malnutrition - megestrol, supplements VTE prophylaxis - enoxaparin dispo - TBD In my clinical judgment, the patient requires continued inpatient hospitalization for the following reasons: hypoxia Total time managing care of this patient today: 35 minutes. Quality Stroke Does the patient have a stroke diagnosis?: No VTE Prior VTE?: No VTE Risk Level:: Medical - moderate - high VTE Device Contraindication: Treatment Not Indicated VTE Drug Contraindication: N/A - Med Ordered
--- NOTE | 2024-08-21 12:53 | MHC.CM.PN ---
Home O2 eval determined that pt. requires home O2. Dtr / HCP of pt. explained to CM that pt. is still smoking, is memory impaired and lit a cigarette here in hosp. with O2 on, so this is a safety concern as she lives alone. Pt. will remain here and attempt to wean O2, so she can go home without it. CM spoke at length to dtr about the longer term plan that pt. will require more assistance. Dtr is working with [facility] to increase pt.'s home care, and looking into [facility] and completing a [facility] [facility]. CM suggested that dtr look at [facility], for low income, shared apt options, [facility]ely[facility] in [facility], and [facility] in [place]. Cm to follow and assist with DC plan.
--- NOTE | 2024-08-21 13:16 | P.CDIM_ITS ---
PROVIDER RESPONSE TEXT: To clarify, the appropriate diagnosis supported by the clinical indicators: Moderate QUERY TEXT: PHYSICIAN'S DOCUMENTATION REQUEST Date of Query: 08/21/2024 11:46 AM EDT Patient Name: Mara Walker Admit Date: 08/20/2024 Dear Jennifer Lake MD, A review of the medical record indicates additional documentation may be needed. Please review below and update the documentation accordingly. Documentation includes the diagnosis of protein energy malnutrition. Clinical nutrition notes - Patient is moderately malnourished with mildly depleted subcutaneous fat a nd muscle mass. BMI 16.1 Chronic poor PO intake R/T history Anorexia. Receiving Ensure MAX TID which is a high protein, low samantha supplement. If possible, please provide additional specificity regarding the severity of the malnutrition using t he above information: Mild Moderate Severe Other (explain) Clinically unable to determine (explain) Thank you, Zelda Thomas, CCS, CDIS Use of terms such as suspected, likely, concern for, or probable (associated with a specific diagnosi s that is being evaluated, monitored, or treated as if it exists) are acceptable and can be coded in the inpatient se tting, when documented at the time of discharge. Please use your independent medical judgment in providing your response. THIS QUERY IS PART OF THE PERMANENT MEDICAL RECORD
--- NOTE | 2024-08-21 13:16 | P.CDIM_ITS ---
PROVIDER RESPONSE TEXT: To clarify, the appropriate diagnosis supported by the clinical indicators: Hypernatremia: acute QUERY TEXT: PHYSICIAN'S DOCUMENTATION REQUEST Date of Query: 08/20/2024 12:04 PM EDT Patient Name: Mara Walker Admit Date: 08/20/2024 Dear Jennifer Lake MD, A review of the medical record indicates additional documentation may be needed. Please review below and update the documentation accordingly. Clinical Indicators: LABS: sodium 146 H fluids Based on the above, is there a diagnosis that correlates with these lab findings: Hypernatremia possible, probable, suspected, resolved etc. Labs indicate a diagnosis of (please specify) Other (explain) Clinically unable to determine (explain) Thank you, Zelda Thomas, CCS, CDIS Use of terms such as suspected, likely, concern for, or probable (associated with a specific diagnosi s that is being evaluated, monitored, or treated as if it exists) are acceptable and can be coded in the inpatient se tting, when documented at the time of discharge. Please use your independent medical judgment in providing your response. THIS QUERY IS PART OF THE PERMANENT MEDICAL RECORD
[2024-08-21] MEDS: Azithromycin 500 MG in 0.9 % Sodium Chloride 250 ML 125 MG IV (19:38)
[2024-08-21] MEDS: QUEtiapine Fumarate 25 MG TABLET PO (19:38)
[2024-08-21] MEDS: hydrOXYzine HCL 50 MG TABLET PO (19:38)
[2024-08-21] MEDS: Nicotine Polacrilex 2 MG GUM BUCCAL (19:39)
[2024-08-22] VITALS (9 sets, daily range): BP systolic 107–122; BP diastolic 60–73; PULSE 78–110; RESP 16–19; TEMP 37.2–37.9; O2SAT 90–96
[2024-08-22 07:35] LABS: Anion Gap 7 (12-20); Blood Urea Nitrogen 17 mg/dL (9-16); Calcium 8.5 mg/dL (8.4-10.2); Carbon Dioxide 39 mmol/L (22-29); Chloride 99 mmol/L (96-108); Creatinine Clr Calc Pharmacy 62.1; Estimated Glomerular Filt Rate > 60; Glucose Random 109 mg/dL (60-115); Potassium 3.2 mmol/L (3.3-5.1); Sodium 142 mmol/L (135-145)
[2024-08-22] MEDS: Tiotropium Bromide 2.5 mcg 1 PUFF/2.5 MCG MIST.INHAL INHALE (07:41)
[2024-08-22] MEDS: Fluticasone/Vilanterol 100/25 BLST.W.DEV 1 PUFF INHALE (07:41)
[2024-08-22] MEDS: Albuterol/Iprat 2.5/0.5MG 3 ML AMPUL.NEB INHALE ×3 (07:41→18:35)
[2024-08-22] MEDS: Enoxaparin Sodium 30 MG/0.3 ML SYRINGE SUBCUT (08:48)
[2024-08-22] MEDS: predniSONE 20 MG TABLET 40 MG PO (08:49)
[2024-08-22] MEDS: Sertraline HCL 50 MG TABLET PO (08:49)
[2024-08-22] MEDS: Megestrol Acetate 20 MG TABLET 40 MG PO (08:50)
[2024-08-22] MEDS: 0.9 % Sodium Chloride Flush 3 ML SYRINGE IVFLUSH (08:55)
--- NOTE | 2024-08-22 10:06 | MHC.CLN ---
F/U PT IS MODERATELY MALNOURISHED SEE FULL CLINICAL NUTRITION ASSESSMENT DATED 08/20/24 PO INTAKE FOLLOWS: 100, 100, 100, 25, 25% (70% AVERAGE INTAKE) NOTED MEGACE IN PLACE DIET RX: REGULAR -APPROPRIATE PT RECEIVING ENSURE BID TO PROVIDE 700KCALS, 40G PROTEIN MONITOR PO INTAKE AND ENCOURAGE SUPPLEMENT
--- NOTE | 2024-08-22 13:40 | MHC.CM.PN ---
Addendum entered by Lucina Haq 08/22/24 15:55: This CM met with pt and her daughter/HCP present in the room, they are both in agreement with pt going to [facility], and pt states [facility] is first choice. This CM has asked [facility] to pursue insurance auth. Original Note: EMR reviewed and per MD rounds, pt is not medically cleared for discharge due to pending safe discharge dispo, and Psych consult pending re: pts capacity. This CM spoke with pts daughter/HCP Cuca, and she is in favor of the pt going to [facility] to help with oxygen training/safety prior to her coming home. Pt with multiple [facility] bed offers, which were reviewed with pts daughter, no preference at this time.
--- NOTE | 2024-08-22 15:56 | HO.PM.IMPN ---
Subjective Subjective Date of Service: 08/22/24 Interval History: less sob, still using O2 Physical Exam Vital Signs: Vital Signs: Last Vital Signs Temp 100 F 08/22/24 15:51 Pulse 97 08/22/24 15:51 Resp 16 08/22/24 15:51 BP 116/68 08/22/24 15:51 Pulse Ox 92 08/22/24 15:51 O2 Del Method Nasal Cannula 08/22/24 15:51 O2 Flow Rate 1 08/22/24 15:51 FiO2 30 08/20/24 03:04 Oxygen Flow Rate 4 08/19/24 17:36 BMI result Body Mass Index 16.1 Const: Other: General: AO X 3, no acute distress Resp: CTA bilateral CVS: S1,S2,RRR GI: +BS, NT, no distention Skin: No rash Neuro: motor grossly intact Psych: appropriate affect Objective Data Active Medications Acetaminophen (Acetaminophen 325 Mg Tablet) 650 mg PO Q6H PRN PRN Reason: Pain, Mild (Pain Scale 1-3), fever or headache Albuterol/Ipratropium (Albuterol/Iprat 2.5/0.5mg 3 Ml Ampul.Neb) 3 ml INHALE RQ4H WHILE AWAKE [facility] Last Admin: 08/22/24 11:33 Dose: Not Given Documented By: MARVIN Non-Admin Reason: Patient Refused Albuterol/Ipratropium (Albuterol/Iprat 2.5/0.5mg 3 Ml Ampul.Neb) 3 ml INHALE Q4H PRN PRN Reason: Wheezing Calcium Carbonate (Calcium Carbonate 750 Mg Tab.Chew) 750 mg PO Q4H PRN PRN Reason: Heartburn Enoxaparin Sodium (Enoxaparin Sodium 30 Mg/0.3 Ml Syringe) 30 mg SUBCUT Q24H [facility] Last Admin: 08/22/24 08:48 Dose: 30 mg Documented By: EMIL Fluticasone/Vilanterol (Fluticasone/Vilanterol 100/25 Blst.W.Dev) 1 puff INHALE RDAILY [facility] Last Admin: 08/22/24 07:41 Dose: 1 puff Documented By: MARVIN Hydroxyzine HCl (Hydroxyzine Hcl 50 Mg Tablet) 50 mg PO Q6H PRN PRN Reason: Anxiety Last Admin: 08/21/24 19:38 Dose: 50 mg Documented By: LILIA Azithromycin 500 mg/ Sodium (Chloride) 250 mls @ 125 mls/hr IV Q24H [facility] Last Infusion: 08/21/24 21:40 Dose: Infused Documented By: LILIA Magnesium Hydroxide (Milk Of Magnesia 30 Ml Oral.Susp) 30 ml PO DAILY PRN PRN Reason: Constipation Megestrol Acetate (Megestrol Acetate 20 Mg Tablet) 40 mg PO DAILY [facility] Last Admin: 08/22/24 08:50 Dose: 40 mg Documented By: EMIL Melatonin (Melatonin 3 Mg Tablet) 6 mg PO BEDTIME PRN PRN Reason: Insomnia Nicotine (Nicotine 14 Mg Patch.Td24) 14 mg TRANSDERMA DAILY [facility] Last Admin: 08/22/24 08:56 Dose: Not Given Documented By: EMIL Non-Admin Reason: Patient Refused Nicotine Polacrilex (Nicotine Polacrilex 2 Mg Gum) 2 mg BUCCAL Q2H PRN PRN Reason: Nicotine Cravings Last Admin: 08/21/24 19:39 Dose: 2 mg Documented By: LILIA Ondansetron HCl (Ondansetron Hcl 4 Mg/2 Ml Vial) 4 mg IVPUSH Q8H PRN PRN Reason: Nausea and Vomiting Prednisone (Prednisone 20 Mg Tablet) 40 mg PO DAILY [facility] Last Admin: 08/22/24 08:49 Dose: 40 mg Documented By: EMIL Quetiapine Fumarate (Quetiapine Fumarate 25 Mg Tablet) 25 mg PO BEDTIME [facility] Last Admin: 08/21/24 19:38 Dose: 25 mg Documented By: LILIA Sertraline HCl (Sertraline Hcl 50 Mg Tablet) 50 mg PO DAILY [facility] Last Admin: 08/22/24 08:49 Dose: 50 mg Documented By: EMIL Sodium Chloride (0.9 % Sodium Chloride Flush 3 Ml Syringe) 3 ml IVFLUSH QSHIFT [facility] Last Admin: 08/22/24 08:55 Dose: 3 ml Documented By: EMIL Tiotropium [place] (Tiotropium [place] 2.5 Mcg 1 Puff/2.5 Mcg Mist.Inhal) 1 puff INHALE RDAILY [facility] Last Admin: 08/22/24 07:41 Dose: 1 puff Documented By: MARVIN Valacyclovir HCl (Valacyclovir Hcl 500 Mg Tablet) 500 mg PO ONCE PRN PRN Reason: cold sores Labs 08/21/24 07:52 08/22/24 06:44 Labs: Laboratory Results - last 24 hr 08/22/24 06:44 Anion Gap 7 L Estim Creat Clear Calc 62.1 Estimated GFR > 60 Random Glucose 109 Calcium 8.5 D Assessment and Plan (1) Acute exacerbation of chronic obstructive pulmonary disease: Status: Acute Assessment and Plan: 59yo F with COPD not on home O2, tobacco abuse, bipolar, protein calorie malnutrition presenting with dyspnea + hypoxia [70s at Urgent Care], briefly on BiPAP in ED acute hypoxic respiratory failure due to COPD exacerbation - prednisone, scheduled/prn nebs, Breo, Spiriva - unable to wean off O2 -will need O2 at home but doesn't want to stop smoking, doesn't mood disorder - quetiapine, sertraline tobacco abuse - nicotine replacement moderate protein-calorie malnutrition - megestrol, supplements VTE prophylaxis - enoxaparin dispo - TBD In my clinical judgment, the patient requires continued inpatient hospitalization for the following reasons: hypoxia Total time managing care of this patient today: 35 minutes. Quality Stroke Does the patient have a stroke diagnosis?: No VTE Prior VTE?: No VTE Risk Level:: Medical - moderate - high VTE Device Contraindication: Treatment Not Indicated VTE Drug Contraindication: N/A - Med Ordered
[2024-08-22] MEDS: Nicotine Polacrilex 2 MG GUM BUCCAL (19:25)
[2024-08-22] MEDS: hydrOXYzine HCL 50 MG TABLET PO (19:25)
[2024-08-22] MEDS: Azithromycin 500 MG in 0.9 % Sodium Chloride 250 ML 125 MG IV (19:25)
[2024-08-22] MEDS: Melatonin 3 MG TABLET 6 MG PO (19:25)
[2024-08-22] MEDS: QUEtiapine Fumarate 25 MG TABLET PO (19:25)
[2024-08-23] VITALS (10 sets, daily range): BP systolic 98–128; BP diastolic 56–80; PULSE 73–106; RESP 18–20; TEMP 36.2–37.1; O2SAT 90–97
[2024-08-23] MEDS: Albuterol/Iprat 2.5/0.5MG 3 ML AMPUL.NEB INHALE ×3 (08:03→18:56)
[2024-08-23] MEDS: Tiotropium Bromide 2.5 mcg 1 PUFF/2.5 MCG MIST.INHAL INHALE (08:03)
[2024-08-23] MEDS: Fluticasone/Vilanterol 100/25 BLST.W.DEV 1 PUFF INHALE (08:03)
[2024-08-23] MEDS: Megestrol Acetate 20 MG TABLET 40 MG PO (10:01)
[2024-08-23] MEDS: Sertraline HCL 50 MG TABLET PO (10:02)
[2024-08-23] MEDS: 0.9 % Sodium Chloride Flush 3 ML SYRINGE IVFLUSH (10:02)
[2024-08-23] MEDS: predniSONE 20 MG TABLET 40 MG PO (10:02)
--- NOTE | 2024-08-23 13:32 | P.PNIM_ITS ---
Subjective Subjective Date of Service: 08/23/24 Interval History: No sob but O2 drops without O2 Physical Exam 2 Vital Signs: Vital Signs: Last Vital Signs Temp 97.3 F 08/23/24 11:16 Pulse 92 08/23/24 11:24 Resp 18 08/23/24 11:24 BP 107/59 L 08/23/24 11:16 Pulse Ox 92 08/23/24 11:16 O2 Del Method Nasal Cannula 08/23/24 11:16 O2 Flow Rate 1 08/23/24 11:16 FiO2 30 08/20/24 03:04 Oxygen Flow Rate 4 08/19/24 17:36 BMI result Body Mass Index 16.1 Const: Other: General: AO X 3, no acute distress Resp: CTA bilateral CVS: S1,S2,RRR GI: +BS, NT, no distention Skin: No rash Neuro: motor grossly intact Psych: appropriate affect Objective Data Active Medications Acetaminophen (Acetaminophen 325 Mg Tablet) 650 mg PO Q6H PRN PRN Reason: Pain, Mild (Pain Scale 1-3), fever or headache Albuterol/Ipratropium (Albuterol/Iprat 2.5/0.5mg 3 Ml Ampul.Neb) 3 ml INHALE RQ4H WHILE AWAKE [facility] Last Admin: 08/23/24 11:23 Dose: 3 ml Documented By: MIGUEL Albuterol/Ipratropium (Albuterol/Iprat 2.5/0.5mg 3 Ml Ampul.Neb) 3 ml INHALE Q4H PRN PRN Reason: Wheezing Calcium Carbonate (Calcium Carbonate 750 Mg Tab.Chew) 750 mg PO Q4H PRN PRN Reason: Heartburn Enoxaparin Sodium (Enoxaparin Sodium 30 Mg/0.3 Ml Syringe) 30 mg SUBCUT Q24H [facility] Last Admin: 08/23/24 10:03 Dose: Not Given Documented By: EMIL Non-Admin Reason: Patient Refused Fluticasone/Vilanterol (Fluticasone/Vilanterol 100/25 Blst.W.Dev) 1 puff INHALE RDAILY [facility] Last Admin: 08/23/24 08:03 Dose: 1 puff Documented By: REHAN Hydroxyzine HCl (Hydroxyzine Hcl 50 Mg Tablet) 50 mg PO Q6H PRN PRN Reason: Anxiety Last Admin: 08/22/24 19:25 Dose: 50 mg Documented By: LILIA Azithromycin 500 mg/ Sodium (Chloride) 250 mls @ 125 mls/hr IV Q24H [facility] Last Infusion: 08/22/24 21:25 Dose: Infused Documented By: LILIA Magnesium Hydroxide (Milk Of Magnesia 30 Ml Oral.Susp) 30 ml PO DAILY PRN PRN Reason: Constipation Megestrol Acetate (Megestrol Acetate 20 Mg Tablet) 40 mg PO DAILY [facility] Last Admin: 08/23/24 10:01 Dose: 40 mg Documented By: EMIL Melatonin (Melatonin 3 Mg Tablet) 6 mg PO BEDTIME PRN PRN Reason: Insomnia Last Admin: 08/22/24 19:25 Dose: 6 mg Documented By: LILIA Nicotine (Nicotine 14 Mg Patch.Td24) 14 mg TRANSDERMA DAILY [facility] Last Admin: 08/23/24 10:02 Dose: Not Given Documented By: EMIL Non-Admin Reason: Patient Refused Nicotine Polacrilex (Nicotine Polacrilex 2 Mg Gum) 2 mg BUCCAL Q2H PRN PRN Reason: Nicotine Cravings Last Admin: 08/22/24 19:25 Dose: 2 mg Documented By: LILIA Ondansetron HCl (Ondansetron Hcl 4 Mg/2 Ml Vial) 4 mg IVPUSH Q8H PRN PRN Reason: Nausea and Vomiting Prednisone (Prednisone 20 Mg Tablet) 40 mg PO DAILY [facility] Last Admin: 08/23/24 10:02 Dose: 40 mg Documented By: EMIL Quetiapine Fumarate (Quetiapine Fumarate 25 Mg Tablet) 25 mg PO BEDTIME [facility] Last Admin: 08/22/24 19:25 Dose: 25 mg Documented By: LILIA Sertraline HCl (Sertraline Hcl 50 Mg Tablet) 50 mg PO DAILY [facility] Last Admin: 08/23/24 10:02 Dose: 50 mg Documented By: EMIL Sodium Chloride (0.9 % Sodium Chloride Flush 3 Ml Syringe) 3 ml IVFLUSH QSHIFT [facility] Last Admin: 08/23/24 10:02 Dose: 3 ml Documented By: EMIL Tiotropium [place] (Tiotropium [place] 2.5 Mcg 1 Puff/2.5 Mcg Mist.Inhal) 1 puff INHALE RDAILY [facility] Last Admin: 08/23/24 08:03 Dose: 1 puff Documented By: REHAN Valacyclovir HCl (Valacyclovir Hcl 500 Mg Tablet) 500 mg PO ONCE PRN PRN Reason: cold sores Labs 08/21/24 07:52 08/22/24 06:44 Assessment and Plan (1) Acute exacerbation of chronic obstructive pulmonary disease: Status: Acute Plan 59yo F with COPD not on home O2, tobacco abuse, bipolar, protein calorie malnutrition presenting with dyspnea + hypoxia [70s at Urgent Care], briefly on BiPAP in ED acute hypoxic respiratory failure due to COPD exacerbation - prednisone, scheduled/prn nebs, Breo, Spiriva - unable to wean off O2, try weaning again -will need O2 at home but doesn't want to stop smoking, doesn't mood disorder - quetiapine, sertraline tobacco abuse - nicotine replacement moderate protein-calorie malnutrition - megestrol, supplements VTE prophylaxis - enoxaparin dispo - TBD In my clinical judgment, the patient requires continued inpatient hospitalization for the following reasons: hypoxia Total time managing care of this patient today: 35 minutes. Quality Stroke Does the patient have a stroke diagnosis?: No VTE Prior VTE?: No VTE Risk Level:: Medical - moderate - high VTE Device Contraindication: Treatment Not Indicated VTE Drug Contraindication: N/A - Med Ordered
[2024-08-23] MEDS: Azithromycin 500 MG in 0.9 % Sodium Chloride 250 ML 125 MG IV (19:50)
[2024-08-23] MEDS: hydrOXYzine HCL 50 MG TABLET PO (21:20)
[2024-08-23] MEDS: QUEtiapine Fumarate 25 MG TABLET PO (21:20)
[2024-08-23] MEDS: Melatonin 3 MG TABLET 6 MG PO (21:20)
[2024-08-24] VITALS (8 sets, daily range): BP systolic 108–140; BP diastolic 60–77; PULSE 72–104; RESP 16–20; TEMP 36.7–37.6; O2SAT 93–98
[2024-08-24] MEDS: Albuterol/Iprat 2.5/0.5MG 3 ML AMPUL.NEB INHALE ×3 (07:44→19:21)
[2024-08-24] MEDS: Tiotropium Bromide 2.5 mcg 1 PUFF/2.5 MCG MIST.INHAL INHALE (07:53)
[2024-08-24] MEDS: Fluticasone/Vilanterol 100/25 BLST.W.DEV 1 PUFF INHALE (07:53)
[2024-08-24] MEDS: predniSONE 20 MG TABLET 40 MG PO (09:08)
[2024-08-24] MEDS: Sertraline HCL 50 MG TABLET PO (09:08)
[2024-08-24] MEDS: Megestrol Acetate 20 MG TABLET 40 MG PO (09:08)
[2024-08-24] MEDS: 0.9 % Sodium Chloride Flush 3 ML SYRINGE IVFLUSH (09:09)
--- NOTE | 2024-08-24 11:00 | PM.DS ---
DS: Providers Provider Date of Service: 08/24/24 Date of admission: 08/20/24 04:10 Primary care physician: Vito Beal MD Consults: 08/22/24 11:06 Consult to Psychiatry Routine Consulting Provider: Psych Covering Reason for consultation: assess compentency 08/24/24 07:24 Consult to Psychiatry Stat Consulting Provider: Psych Covering Reason for consultation: compentency DS: Diagnosis Discharge Diagnosis (1) Acute exacerbation of chronic obstructive pulmonary disease: Status: Acute DS: Summary Hospital Course Hospital Course: admission hpi admission hpi Chief Complaint: Dyspnea This is a 59-year-old female with pertinent history of COPD not on home oxygen, tobacco use disorder, bipolar disorder, protein energy malnutrition who presents to the emergency department for evaluation of dyspnea. Patient states the dyspnea has been ongoing for a while but the daughter saw that she was more short of breath on the day of presentation and got the patient to urgent care. Patient was satting in the 70s and patient was sent to the ER on supplemental oxygen. Patient does endorse cough which is productive with whitish sputum production. No sick contacts. No fever, chills, chest pain or palpitations. Patient continues to smoke cigarettes. No nausea, vomiting, abdominal pain, changes in urinary or bowel habits. In the emergency department, patient initially required BiPAP and was placed on supplemental oxygen. Given IV steroids and DuoNebs in the ER. Hospital course: 59yo F with COPD not on home O2, tobacco abuse, bipolar, protein calorie malnutrition presenting with dyspnea + hypoxia [70s at Urgent Care], briefly on BiPAP in ED and was admitted and given IV steroid and bronchodilators by Nebulizer. Over the course of hospitalization she has progresively improved and has been succesfully weaned off Oxygen. Initially, we thought she might need oxygen at home yet on repeat testing, there was no indication for home o2. She is breathing comfortabley on room air. She will be discharged with Predinsone tappe and to continue use home inhalers. Smoking cessation is highly discouraged. mood disorder - quetiapine, sertraline tobacco abuse - nicotine replacement moderate protein-calorie malnutrition - megestrol, supplements She will be going home with [facility] Time Attestation Discharge Coordination Time (in mins): 35 Quality: Safe Use of Opioids Does Pt have an Active Cancer Diagnosis on the Problem List?: No Quality: Stroke Does the patient have a stroke diagnosis?: No Physical Exam Vital Signs: Vital Signs: Last Vital Signs Temp 98.5 F 08/24/24 07:54 Pulse 85 08/24/24 07:54 Resp 18 08/24/24 07:54 BP 113/60 08/24/24 07:54 Pulse Ox 94 08/24/24 07:54 O2 Del Method Room Air 08/24/24 07:54 O2 Flow Rate 1 08/24/24 03:35 FiO2 30 08/20/24 03:04 Oxygen Flow Rate 4 08/19/24 17:36 BMI result Body Mass Index 16.1 General: AO X 3, no acute distress Resp: CTA bilateral CVS: S1,S2,RRR GI: +BS, NT, no distention Skin: No rash Neuro: motor grossly intact Psych: appropriate affect Discharge Plan Discharge Anticipated Discharge Date/Time: 08/25/24 14:38 Patient Disposition: Home, Self-Care Discharge Diagnosis: Acute COPD exacerbation Referrals: [facility] [Other] - 1 Week ([facility] SOMEONE SHOULD BE CALLING TO SET UP FIRST APPT. ) Vito Beal MD [Primary Care Provider] - 1 Week (PLEASE FOLLOW-UP WITH YOUR PCP. ) Discharge Medications: New prednisone 10 mg tablet See Taper PO DIRECTED Qty: 12 0RF Taper: Prednisone 30 mg daily for 2 Days and 0 Hour 20 mg daily for 2 Days and 0 Hour 10 mg daily for 2 Days and 0 Hour Rx Instructions: see taper instructions Continued albuterol sulfate 90 mcg/actuation HFA aerosol inhaler 2 puff inhalation Q4-6H PRN (Reason: shortness of breath or wheezing) 30 Days Qty: 8.5 3RF tiotropium bromide [Spiriva with HandiHaler] 18 mcg capsule, w/inhalation device 1 cap inhalation DAILY 30 Days Qty: 30 2RF Rx Instructions: puncture 1 cap using device; one dose = 2 inhalations megestrol 40 mg tablet 40 mg PO DAILY 90 Days Qty: 90 3RF fluticasone propion-salmeterol [Wixela Inhub] 250-50 mcg/dose blister with device 1 inh inhalation BID 30 Days Qty: 60 3RF quetiapine [Seroquel] 25 mg tablet 25 mg PO BEDTIME 90 Days Qty: 90 1RF sertraline 50 mg tablet 50 mg PO DAILY Qty: 90 1RF (DME) nebulizer with all supplies See Rx Instructions .Route .MEDSUPPLY Qty: 1 0RF Rx Instructions: As directed ipratropium-albuterol 0.5 mg-3 mg(2.5 mg base)/3 mL solution for nebulization 3 ml inhalation Q8H PRN (Reason: wheezing) 30 Days Qty: 90 0RF valacyclovir 500 mg tablet 500 mg PO ONCE PRN (Reason: cold sores) Discharge Orders: Discharge Order (Routine); Ordered 08/25/24 Ordered By: Eligio Osei Diet: Advance to usual diet Activity on Discharge: As tolerated Stand Alone Forms: Patient Portal Discharge page Print Language: Dominican Care Plan Goals: Recovery from COPD exacerbation, smoking cessation Health Concerns: COPD exacerbation with hypoxia which has now improved. Plan of Treatment: -Take Prednisone as directed and follow up with -Use inhalers as before -stop smoking -follow up with your doctor in a week Assessment: see
--- NOTE | 2024-08-24 11:05 | P.PNIM_ITS ---
Subjective Subjective Date of Service: 08/24/24 Interval History: Overall hypoxia is getting better Off O2 on room air Physical Exam 2 Vital Signs: Vital Signs: Last Vital Signs Temp 98.5 F 08/24/24 07:54 Pulse 85 08/24/24 07:54 Resp 18 08/24/24 07:54 BP 113/60 08/24/24 07:54 Pulse Ox 94 08/24/24 07:54 O2 Del Method Room Air 08/24/24 07:54 O2 Flow Rate 1 08/24/24 03:35 FiO2 30 08/20/24 03:04 Oxygen Flow Rate 4 08/19/24 17:36 BMI result Body Mass Index 16.1 Const: Other: General: AO X 3, no acute distress Resp: CTA bilateral CVS: S1,S2,RRR GI: +BS, NT, no distention Skin: No rash Neuro: motor grossly intact Psych: appropriate affect Objective Data Active Medications Acetaminophen (Acetaminophen 325 Mg Tablet) 650 mg PO Q6H PRN PRN Reason: Pain, Mild (Pain Scale 1-3), fever or headache Albuterol/Ipratropium (Albuterol/Iprat 2.5/0.5mg 3 Ml Ampul.Neb) 3 ml INHALE RQ4H WHILE AWAKE [facility] Last Admin: 08/24/24 07:44 Dose: 3 ml Documented By: REHAN Albuterol/Ipratropium (Albuterol/Iprat 2.5/0.5mg 3 Ml Ampul.Neb) 3 ml INHALE Q4H PRN PRN Reason: Wheezing Calcium Carbonate (Calcium Carbonate 750 Mg Tab.Chew) 750 mg PO Q4H PRN PRN Reason: Heartburn Enoxaparin Sodium (Enoxaparin Sodium 30 Mg/0.3 Ml Syringe) 30 mg SUBCUT Q24H [facility] Last Admin: 08/24/24 09:09 Dose: Not Given Documented By: EMIL Non-Admin Reason: Patient Refused Fluticasone/Vilanterol (Fluticasone/Vilanterol 100/25 Blst.W.Dev) 1 puff INHALE RDAILY [facility] Last Admin: 08/24/24 07:53 Dose: 1 puff Documented By: REHAN Hydroxyzine HCl (Hydroxyzine Hcl 50 Mg Tablet) 50 mg PO Q6H PRN PRN Reason: Anxiety Last Admin: 08/23/24 21:20 Dose: 50 mg Documented By: LARRY Azithromycin 500 mg/ Sodium (Chloride) 250 mls @ 125 mls/hr IV Q24H [facility] Last Infusion: 08/23/24 21:50 Dose: Infused Documented By: LARRY Magnesium Hydroxide (Milk Of Magnesia 30 Ml Oral.Susp) 30 ml PO DAILY PRN PRN Reason: Constipation Megestrol Acetate (Megestrol Acetate 20 Mg Tablet) 40 mg PO DAILY [facility] Last Admin: 08/24/24 09:08 Dose: 40 mg Documented By: EMIL Melatonin (Melatonin 3 Mg Tablet) 6 mg PO BEDTIME PRN PRN Reason: Insomnia Last Admin: 08/23/24 21:20 Dose: 6 mg Documented By: LARRY Nicotine (Nicotine 14 Mg Patch.Td24) 14 mg TRANSDERMA DAILY [facility] Last Admin: 08/24/24 09:08 Dose: Not Given Documented By: EMIL Non-Admin Reason: Patient Refused Nicotine Polacrilex (Nicotine Polacrilex 2 Mg Gum) 2 mg BUCCAL Q2H PRN PRN Reason: Nicotine Cravings Last Admin: 08/22/24 19:25 Dose: 2 mg Documented By: LILIA Ondansetron HCl (Ondansetron Hcl 4 Mg/2 Ml Vial) 4 mg IVPUSH Q8H PRN PRN Reason: Nausea and Vomiting Prednisone (Prednisone 20 Mg Tablet) 40 mg PO DAILY [facility] Last Admin: 08/24/24 09:08 Dose: 40 mg Documented By: EMIL Quetiapine Fumarate (Quetiapine Fumarate 25 Mg Tablet) 25 mg PO BEDTIME [facility] Last Admin: 08/23/24 21:20 Dose: 25 mg Documented By: LARRY Sertraline HCl (Sertraline Hcl 50 Mg Tablet) 50 mg PO DAILY [facility] Last Admin: 08/24/24 09:08 Dose: 50 mg Documented By: EMIL Sodium Chloride (0.9 % Sodium Chloride Flush 3 Ml Syringe) 3 ml IVFLUSH QSHIFT [facility] Last Admin: 08/24/24 09:09 Dose: 3 ml Documented By: EMIL Tiotropium [place] (Tiotropium [place] 2.5 Mcg 1 Puff/2.5 Mcg Mist.Inhal) 1 puff INHALE [facility] Last Admin: 08/24/24 07:53 Dose: 1 puff Documented By: REHAN Valacyclovir HCl (Valacyclovir Hcl 500 Mg Tablet) 500 mg PO ONCE PRN PRN Reason: cold sores Labs 08/21/24 07:52 08/22/24 06:44 Assessment and Plan (1) Acute exacerbation of chronic obstructive pulmonary disease: Status: Acute Plan 59yo F with COPD not on home O2, tobacco abuse, bipolar, protein calorie malnutrition presenting with dyspnea + hypoxia [70s at Urgent Care], briefly on BiPAP in ED acute hypoxic respiratory failure due to COPD exacerbation - prednisone, scheduled/prn nebs, Breo, Spiriva - unable to wean off O2, try weaning again -will need O2 at home but doesn't want to stop smoking, doesn't mood disorder - quetiapine, sertraline tobacco abuse - nicotine replacement moderate protein-calorie malnutrition - megestrol, supplements VTE prophylaxis - enoxaparin dispo - PT is recommending STR In my clinical judgment, the patient requires continued inpatient hospitalization for the following reasons: hypoxia Total time managing care of this patient today: 35 minutes. Quality Stroke Does the patient have a stroke diagnosis?: No VTE Prior VTE?: No VTE Risk Level:: Medical - moderate - high VTE Device Contraindication: Treatment Not Indicated VTE Drug Contraindication: N/A - Med Ordered
--- NOTE | 2024-08-24 12:52 | P.CNPS_ITS ---
History of Present Illness Date of Service: 08/24/2024 Chief Complaint: dyspnea Requesting physician: Eligio Osei Discussed with referring provider: Yes Sources of Information: patient interviewed, chart reviewed and crisis/core team assessment reviewed HPI Narrative: Ms. Walker is a 59 year-old woman with COPD admitted for exacerbation of COPD on oxygen. Psychiatry asked to complete capacity assessment. Ms. Walker seen in her room. She reports she is not aware of any lung condition. She thinks she came to the hospital last night. She states she mostly knows that physicians are telling her to stop smoking. She reports she is not planning to do so, as it is hard. She thinks she is here because her daughter wants her here but does not see any medical necessity. She is not able to tell what medications she takes or for what conditions. She is upset because she wants to go home and they are not letting me. constantly taking on and off oxygen. She is oriented to place, month, year but certainly not to situation. moreover, pt not able to retain nw information. [facility] Medical History Acute on chronic hypoxic respiratory failure Nicotine dependence, cigarettes, uncomplicated Anal itching Vaginal discharge Colonoscopy refused Palpitation Colon cancer screening Non-compliance Anorexia nervosa Underweight Urinary urgency Eczema Mammogram declined Surgical History History of cervical biopsy History of tonsillectomy History of surgery on arm Diagnostics Vital Signs (24Hr): Vital Signs - 24 hr 08/23/24 15:36 08/23/24 18:56 08/23/24 19:28 Temperature 97.4 F 98.0 F Pulse Rate 95 104 H 106 H Respiratory Rate 18 18 19 Blood Pressure 114/68 128/61 Pulse Oximetry 93 91 L Oxygen Delivery Method Room Air Room Air Oxygen Flow Rate 08/23/24 23:44 08/24/24 03:35 08/24/24 07:45 Temperature 97.1 F 98.0 F Pulse Rate 93 72 101 H Respiratory Rate 18 16 16 Blood Pressure 98/56 L 108/68 Pulse Oximetry 94 96 Oxygen Delivery Method Nasal Cannula Nasal Cannula Oxygen Flow Rate 1 1 08/24/24 07:54 08/24/24 12:00 Temperature 98.5 F 99.7 F Pulse Rate 85 86 Respiratory Rate 18 16 Blood Pressure 113/60 111/71 Pulse Oximetry 94 94 Oxygen Delivery Method Room Air Room Air Oxygen Flow Rate BMI result Body Mass Index 16.1 Labs 08/21/24 07:52 08/22/24 06:44 Imaging Radiology Impressions: ITS Impressions Chest X-Ray 08/19/24 17:57 IMPRESSION: Chronic emphysematous changes and pulmonary hyperinflation. Superimposed obstructive process/exacerbation could be considered. Electronically signed by: Vivek De La Rosa MD 08/19/2024 07:14 PM EDT RP Mental Status Exam Mental Status Exam Narrative: Appearance: wearing hospital gown, good hygiene, in thin, in NAD Behavior: cooperative, somewhat guarded as she wants to leave Psychomotor: no agitation or retardation noted Speech: clear, normal rate/rhythm/volume, spontaneous TP: linear- goal oriented wanting to go home TC: wanting to go home Mood: not good here Affect: bright, non labile SI: none HI: none Insight/judgment: impaired x 2. memory/cog; alert, oriented to place, month and year, but not to situation. thinks she came last night, when she has been here more than 2 days, can't tell medical condition or treatment that she is receiving here. Medications Medications Current Medications Acetaminophen (Acetaminophen 325 Mg Tablet) 650 mg PO Q6H PRN PRN Reason: Pain, Mild (Pain Scale 1-3), fever or headache Albuterol/Ipratropium (Albuterol/Iprat 2.5/0.5mg 3 Ml Ampul.Neb) 3 ml INHALE RQ4H WHILE AWAKE [facility] Last Admin: 08/24/24 11:13 Dose: Not Given Albuterol/Ipratropium (Albuterol/Iprat 2.5/0.5mg 3 Ml Ampul.Neb) 3 ml INHALE Q4H PRN PRN Reason: Wheezing Calcium Carbonate (Calcium Carbonate 750 Mg Tab.Chew) 750 mg PO Q4H PRN PRN Reason: Heartburn Enoxaparin Sodium (Enoxaparin Sodium 30 Mg/0.3 Ml Syringe) 30 mg SUBCUT Q24H [facility] Last Admin: 08/24/24 09:09 Dose: Not Given Fluticasone/Vilanterol (Fluticasone/Vilanterol 100/25 Blst.W.Dev) 1 puff INHALE RDAILY [facility] Last Admin: 08/24/24 07:53 Dose: 1 puff Hydroxyzine HCl (Hydroxyzine Hcl 50 Mg Tablet) 50 mg PO Q6H PRN PRN Reason: Anxiety Last Admin: 08/23/24 21:20 Dose: 50 mg Azithromycin 500 mg/ Sodium (Chloride) 250 mls @ 125 mls/hr IV Q24H [facility] Last Infusion: 08/23/24 21:50 Dose: Infused Magnesium Hydroxide (Milk Of Magnesia 30 Ml Oral.Susp) 30 ml PO DAILY PRN PRN Reason: Constipation Megestrol Acetate (Megestrol Acetate 20 Mg Tablet) 40 mg PO DAILY [facility] Last Admin: 08/24/24 09:08 Dose: 40 mg Melatonin (Melatonin 3 Mg Tablet) 6 mg PO BEDTIME PRN PRN Reason: Insomnia Last Admin: 08/23/24 21:20 Dose: 6 mg Nicotine (Nicotine 14 Mg Patch.Td24) 14 mg TRANSDERMA DAILY [facility] Last Admin: 08/24/24 09:08 Dose: Not Given Nicotine Polacrilex (Nicotine Polacrilex 2 Mg Gum) 2 mg BUCCAL Q2H PRN PRN Reason: Nicotine Cravings Last Admin: 08/22/24 19:25 Dose: 2 mg Ondansetron HCl (Ondansetron Hcl 4 Mg/2 Ml Vial) 4 mg IVPUSH Q8H PRN PRN Reason: Nausea and Vomiting Prednisone (Prednisone 20 Mg Tablet) 40 mg PO DAILY [facility] Last Admin: 08/24/24 09:08 Dose: 40 mg Quetiapine Fumarate (Quetiapine Fumarate 25 Mg Tablet) 25 mg PO BEDTIME [facility] Last Admin: 08/23/24 21:20 Dose: 25 mg Sertraline HCl (Sertraline Hcl 50 Mg Tablet) 50 mg PO DAILY [facility] Last Admin: 08/24/24 09:08 Dose: 50 mg Sodium Chloride (0.9 % Sodium Chloride Flush 3 Ml Syringe) 3 ml IVFLUSH QSHIFT [facility] Last Admin: 08/24/24 09:09 Dose: 3 ml Tiotropium [place] (Tiotropium [place] 2.5 Mcg 1 Puff/2.5 Mcg Mist.Inhal) 1 puff INHALE RDAILY [facility] Last Admin: 08/24/24 07:53 Dose: 1 puff Valacyclovir HCl (Valacyclovir Hcl 500 Mg Tablet) 500 mg PO ONCE PRN PRN Reason: cold sores Allergies Allergies Allergy/AdvReac Type Severity Reaction Status Date / Time No Known Allergies Allergy Verified 08/19/24 17:42 Assessment & Plan Assessment & Plan (1) Cognitive impairment: Status: Acute Code(s): R41.89 - Other symptoms and signs involving cognitive functions and awareness (2) Encounter for assessment of decision-making capacity: Status: Acute Code(s): Z00.8 - Encounter for other general examination Plan Ms. Brothers is a 59 year-old woman admitted for exacerbation of COPD, now on continuos oxygen. Pt does not capacity to make medical decisions. She is not able to show understanding in terms of medical condition, unable to tell treatment recommendation or need for hospitalization. She is not able to show appreciation of risks versus benefits of accepting or rejecting treatment. Noted to have severe impairment in ability to retain new information. I do suspect this is related to underlying major neurocognitive disorder, not a transient state of confusion. She has no signs of delirium. Recommend MD to invoke HCP. Total time managing care of this patient today ____ minutes.
[2024-08-24] MEDS: Melatonin 3 MG TABLET 6 MG PO (22:23)
[2024-08-24] MEDS: QUEtiapine Fumarate 25 MG TABLET PO (22:23)
[2024-08-24] MEDS: hydrOXYzine HCL 50 MG TABLET PO (22:23)
[2024-08-25] VITALS (12 sets, daily range): BP systolic 104–125; BP diastolic 57–78; PULSE 79–111; RESP 12–20; TEMP 35.9–37.3; O2SAT 90–98
[2024-08-25] MEDS: Tiotropium Bromide 2.5 mcg 1 PUFF/2.5 MCG MIST.INHAL INHALE (07:42)
[2024-08-25] MEDS: Fluticasone/Vilanterol 100/25 BLST.W.DEV 1 PUFF INHALE (07:42)
[2024-08-25] MEDS: Albuterol/Iprat 2.5/0.5MG 3 ML AMPUL.NEB INHALE ×3 (07:45→18:46)
[2024-08-25] MEDS: predniSONE 20 MG TABLET 40 MG PO (08:27)
[2024-08-25] MEDS: Megestrol Acetate 20 MG TABLET 40 MG PO (08:27)
[2024-08-25] MEDS: Sertraline HCL 50 MG TABLET PO (08:27)
[2024-08-25] MEDS: Nicotine 14 MG PATCH.TD24 TRANSDERMA (08:28)
--- NOTE | 2024-08-25 08:53 | MHC.CLN ---
F/U PT IS MODERATELY MALNOURISHED PO INTAKE: VARIABLE PO INTAKE NOTED MEGACE IN PLACE DIET RX: REGULAR -APPROPRIATE PT RECEIVING ENSURE BID PROVIDES 700KCALS, 40G PROTEIN MONITOR PO INTAKE AND ENCOURAGE SUPPLEMENT WEEKLY WEIGHTS
--- NOTE | 2024-08-25 10:57 | MHC.CM.PN ---
Addendum entered by Cathy English RN 08/25/24 14:04: CM DID SPEAK W/PT'S DTR VERONIKA WHO REPORTED SHE IS NOT HAPPY W/PLAN HOWEVER HER MOM MAKES HER OWN DECISIONS. Addendum entered by Cathy English RN 08/25/24 14:04: PT DISCHARGING HOME W/RESUMP OF [facility] FOR HH, PT DECLINES [facility] AND PT'S FRIEND BHASKAR AT BEDSIDE AND WILL TRANSPORT. Addendum entered by Cathy English RN 08/25/24 12:36: REPEAT HOME O2 EVAL COMPLETED, PT IS NOW NOT QUALIFYING FOR HOME OT. Addendum entered by Cathy English RN 08/25/24 11:01: VERONIKA REQUESTING TO SPEAK W/HOSPITALIST WHO IS AWARE AND REQUESTED VERONIKA'S NUMBER, REPEAT HOME O2 EVAL TO BE ORDERED. Original Note: EMR REVIEWED, PER HOSPITALIST PT COULD BE MEDICALLY CLEARED TO DC HOME HOWEVER CM SPOKE TO DTR/HCP VERONIKA X2 AND VERONIKA HAS MANY CONCERNS INCLUDING THAT THU HAD CALLED TO SET UP HOME O2 EVEN THOUGH PT'S HOME O2 EVAL IS WELL OVER 48HRS OLD AND PT WILL NEED IT REPEATED. VERONIKA REPORTED THAT SHE IS TRYING TO GET PT INTO ASSISTED LIVING HOWEVER WAS ALSO SUPPOSED TO BE EVALUATED BY [facility] TOMORROW 08/26 FOR FRAIL ELDER WAIVER PT DOES NOT HAVE FUNDS TO PRIVATE PAY, VERONIKA ALSO REPORTS SHE IS NOT ABLE TO PROVIDE 24HR CARE FOR PT AT HOME D/T NEED TO WORK.
--- NOTE | 2024-08-25 14:44 | W.MHC.F2F ---
Service Date Service Date: 08/25/24 Encounter Date of encounter: 08/25/24 Reasons for Services Signs and symptoms assessed: shortnessof breath Reason for nursing home: medication management and teach disease management Homebound: Leaving the home is medically contraindicated at this time without the asist of a device and/or another person due th the listed conditions above and below. Reason homebound: cognitively impaired / unsafe Homebound supporting statement: homebound due to cognitive impairment, dementia, shortness of breath with minimal effort and therefore needs the assistance of another person Certification: Based on the above findings, I certify that this patient is confined to the home and needs intermittent nursing home care, physical therapy and/or speech therapy, or continues to need occupational therapy. The patient is under my care, and I have initiated the establishment of the plan of care. The patient will be followed by a physician who will periodically review the plan of care. Time Spent With Patient Time: Total time managing care of this patient today ____ minutes.
--- NOTE | 2024-08-25 15:25 | HO.PM.IMPN ---
Subjective Subjective Date of Service: 08/25/24 Interval History: no new issues, weaned off O2 concern around mental state and ability to live alone Physical Exam Vital Signs: Vital Signs: Last Vital Signs Temp 96.7 F L 08/25/24 12:00 Pulse 87 08/25/24 12:00 Resp 18 08/25/24 12:00 BP 115/70 08/25/24 12:00 Pulse Ox 94 08/25/24 12:00 O2 Del Method Room Air 08/25/24 12:00 O2 Flow Rate 1 08/25/24 00:00 FiO2 30 08/20/24 03:04 Oxygen Flow Rate 4 08/19/24 17:36 BMI result Body Mass Index 16.1 Const: Other: General: AO X 2, no acute distress Resp: CTA bilateral CVS: S1,S2,RRR GI: +BS, NT, no distention Skin: No rash Neuro: motor grossly intact Psych: appropriate affect Objective Data Active Medications Acetaminophen (Acetaminophen 325 Mg Tablet) 650 mg PO Q6H PRN PRN Reason: Pain, Mild (Pain Scale 1-3), fever or headache Albuterol/Ipratropium (Albuterol/Iprat 2.5/0.5mg 3 Ml Ampul.Neb) 3 ml INHALE RQ4H WHILE AWAKE [facility] Last Admin: 08/25/24 11:40 Dose: 3 ml Documented By: MARVIN Albuterol/Ipratropium (Albuterol/Iprat 2.5/0.5mg 3 Ml Ampul.Neb) 3 ml INHALE Q4H PRN PRN Reason: Wheezing Calcium Carbonate (Calcium Carbonate 750 Mg Tab.Chew) 750 mg PO Q4H PRN PRN Reason: Heartburn Enoxaparin Sodium (Enoxaparin Sodium 30 Mg/0.3 Ml Syringe) 30 mg SUBCUT Q24H [facility] Last Admin: 08/25/24 08:37 Dose: Not Given Documented By: VANESSA Non-Admin Reason: Patient Refused Fluticasone/Vilanterol (Fluticasone/Vilanterol 100/25 Blst.W.Dev) 1 puff INHALE RDAILY [facility] Last Admin: 08/25/24 07:42 Dose: 1 puff Documented By: ARNOL Hydroxyzine HCl (Hydroxyzine Hcl 50 Mg Tablet) 50 mg PO Q6H PRN PRN Reason: Anxiety Last Admin: 08/24/24 22:23 Dose: 50 mg Documented By: RIDDHI Comments: Anxiety Azithromycin 500 mg/ Sodium (Chloride) 250 mls @ 125 mls/hr IV Q24H [facility] Last Admin: 08/24/24 22:25 Dose: Not Given Documented By: RIDDHI Non-Admin Reason: NO IV ACCESS, PT DECLINES Magnesium Hydroxide (Milk Of Magnesia 30 Ml Oral.Susp) 30 ml PO DAILY PRN PRN Reason: Constipation Megestrol Acetate (Megestrol Acetate 20 Mg Tablet) 40 mg PO DAILY [facility] Last Admin: 08/25/24 08:27 Dose: 40 mg Documented By: VANESSA Melatonin (Melatonin 3 Mg Tablet) 6 mg PO BEDTIME PRN PRN Reason: Insomnia Last Admin: 08/24/24 22:23 Dose: 6 mg Documented By: RIDDHI Comments: pt requested medication help fall asleep Nicotine (Nicotine 14 Mg Patch.Td24) 14 mg TRANSDERMA DAILY [facility] Last Admin: 08/25/24 08:28 Dose: 14 mg Documented By: VANESSA Nicotine Polacrilex (Nicotine Polacrilex 2 Mg Gum) 2 mg BUCCAL Q2H PRN PRN Reason: Nicotine Cravings Last Admin: 08/22/24 19:25 Dose: 2 mg Documented By: LILIA Ondansetron HCl (Ondansetron Hcl 4 Mg/2 Ml Vial) 4 mg IVPUSH Q8H PRN PRN Reason: Nausea and Vomiting Prednisone (Prednisone 20 Mg Tablet) 40 mg PO DAILY [facility] Last Admin: 08/25/24 08:27 Dose: 40 mg Documented By: VANESSA Quetiapine Fumarate (Quetiapine Fumarate 25 Mg Tablet) 25 mg PO BEDTIME [facility] Last Admin: 08/24/24 22:23 Dose: 25 mg Documented By: RIDDHI Sertraline HCl (Sertraline Hcl 50 Mg Tablet) 50 mg PO DAILY [facility] Last Admin: 08/25/24 08:27 Dose: 50 mg Documented By: VANESSA Sodium Chloride (0.9 % Sodium Chloride Flush 3 Ml Syringe) 3 ml IVFLUSH QSHIFT [facility] Last Admin: 08/25/24 08:32 Dose: Not Given Documented By: VANESSA Non-Admin Reason: No Access Tiotropium [place] (Tiotropium [place] 2.5 Mcg 1 Puff/2.5 Mcg Mist.Inhal) 1 puff INHALE [facility] Last Admin: 08/25/24 07:42 Dose: 1 puff Documented By: ARNOL Valacyclovir HCl (Valacyclovir Hcl 500 Mg Tablet) 500 mg PO ONCE PRN PRN Reason: cold sores Labs 08/21/24 07:52 08/22/24 06:44 Assessment and Plan (1) Cognitive impairment: Status: Acute (2) Acute exacerbation of chronic obstructive pulmonary disease: Status: Acute (3) Hypoxia: Status: Acute Plan 59yo F with COPD not on home O2, tobacco abuse, bipolar, protein calorie malnutrition presenting with dyspnea + hypoxia [70s at Urgent Care], briefly on BiPAP in ED and was admitted and given IV steroid and bronchodilators by Nebulizer. Over the course of hospitalization she has progresively improved and has been succesfully weaned off Oxygen. Initially, we thought she might need oxygen at home yet on repeat testing, there was no indication for home o2. She is breathing comfortabley on room air. brooks prednisone mood disorder - quetiapine, sertraline Advanced dementia--per Psych lacks capacity, HCP invoked tobacco abuse - nicotine replacement moderate protein-calorie malnutrition - megestrol, supplements Discussed with daughter, hcp Quality Stroke Does the patient have a stroke diagnosis?: No VTE Prior VTE?: No VTE Risk Level:: Medical - moderate - high VTE Device Contraindication: Treatment Not Indicated VTE Drug Contraindication: N/A - Med Ordered
--- NOTE | 2024-08-25 16:27 | MHC.CM.PN ---
CM CONTSCTED PT'S DTR/HCP VERONIKA AT NUMBER ON FILE D/T PSYCH CONSULT REPORT BEING UPDATED AND RECOMMENDING HCP BE INVOKED, DTR REPORTING SHE DOES NOT WANT PT DISCHARGED SHE IS WORRIED ABOUT HER SAFETY, PT'S DTR REPORTING SHE JUST SPOKE TO HOSPITALIST SHE REPORTS TOLD HER PT WOULD NOT DC UNTIL WE HAVE A SAFE PLACE FOR HER TO GO. CM SPOKE W/HOSPITALIST WHO REPORTS HE INVOKED HCP, ORDER COMPLETE AND SPOKE W/PT AND TOLD HER SHE WILL NOT BE DISCHARGED.
[2024-08-25] MEDS: hydrOXYzine HCL 50 MG TABLET PO (21:28)
[2024-08-25] MEDS: QUEtiapine Fumarate 25 MG TABLET PO (21:28)
[2024-08-25] MEDS: Melatonin 3 MG TABLET 6 MG PO (21:29)
[2024-08-26] VITALS (9 sets, daily range): BP systolic 96–135; BP diastolic 57–73; PULSE 71–108; RESP 12–20; TEMP 36.9–37.3; O2SAT 90–97
[2024-08-26] MEDS: Albuterol/Iprat 2.5/0.5MG 3 ML AMPUL.NEB INHALE ×3 (08:06→20:10)
[2024-08-26] MEDS: Tiotropium Bromide 2.5 mcg 1 PUFF/2.5 MCG MIST.INHAL INHALE (08:06)
[2024-08-26] MEDS: Fluticasone/Vilanterol 100/25 BLST.W.DEV 1 PUFF INHALE (08:06)
[2024-08-26] MEDS: Nicotine 14 MG PATCH.TD24 TRANSDERMA (08:52)
[2024-08-26] MEDS: Megestrol Acetate 20 MG TABLET 40 MG PO (08:53)
[2024-08-26] MEDS: Sertraline HCL 50 MG TABLET PO (08:53)
[2024-08-26] MEDS: predniSONE 20 MG TABLET 40 MG PO (08:53)
--- NOTE | 2024-08-26 13:51 | PM.PSYCN ---
History of Present Illness Date of Service: 08/26/2024 Chief Complaint: dyspnea Requesting physician: Tyler Ding Discussed with referring provider: Yes Sources of Information: patient interviewed, chart reviewed and crisis/core team assessment reviewed HPI Narrative: Interim Hx: reviewed MOCA with most impairments in visuospatial, naming, recall, orientation, language fluency/repetition. ACL 4.2 showing moderate cognitive impairment. Note that MRI on 02/2024 showed global volume loss with temporal predominance. Collateral information gathered from daughter who reports pt increasingly more forgetful, asking same questions, having difficulty paying bills and managing medication. Concern in terms of identifying her own medical complications. [facility] Medical History Acute on chronic hypoxic respiratory failure Nicotine dependence, cigarettes, uncomplicated Anal itching Vaginal discharge Colonoscopy refused Palpitation Colon cancer screening Non-compliance Anorexia nervosa Underweight Urinary urgency Eczema Mammogram declined Surgical History History of cervical biopsy History of tonsillectomy History of surgery on arm Diagnostics Vital Signs (24Hr): Vital Signs - 24 hr 08/25/24 16:09 08/25/24 18:47 08/25/24 20:00 Temperature 97.8 F 99.1 F Pulse Rate 106 H 106 H 111 H Respiratory Rate 12 12 14 Blood Pressure 115/72 122/57 L Pulse Oximetry 94 93 Oxygen Delivery Method Nasal Cannula Room Air 08/25/24 22:28 08/25/24 23:46 08/26/24 03:31 Temperature 98.4 F 98.4 F Pulse Rate 85 73 Respiratory Rate 20 14 12 Blood Pressure 104/59 L 96/62 Pulse Oximetry 93 95 Oxygen Delivery Method Room Air Room Air 08/26/24 07:16 08/26/24 08:20 08/26/24 11:10 Temperature 98.6 F 98.8 F Pulse Rate 86 71 87 Respiratory Rate 18 16 17 Blood Pressure 125/68 116/57 L Pulse Oximetry 92 93 Oxygen Delivery Method Room Air Room Air 08/26/24 11:29 Temperature Pulse Rate 87 Respiratory Rate 17 Blood Pressure Pulse Oximetry Oxygen Delivery Method BMI result Body Mass Index 16.1 Labs 08/21/24 07:52 08/22/24 06:44 Imaging Radiology Impressions: ITS Impressions Chest X-Ray 08/19/24 17:57 IMPRESSION: Chronic emphysematous changes and pulmonary hyperinflation. Superimposed obstructive process/exacerbation could be considered. Electronically signed by: Vivek De La Rosa MD 08/19/2024 07:14 PM EDT Medications Medications Current Medications Acetaminophen (Acetaminophen 325 Mg Tablet) 650 mg PO Q6H PRN PRN Reason: Pain, Mild (Pain Scale 1-3), fever or headache Albuterol/Ipratropium (Albuterol/Iprat 2.5/0.5mg 3 Ml Ampul.Neb) 3 ml INHALE RQ4H WHILE AWAKE [facility] Last Admin: 08/26/24 11:28 Dose: 3 ml Albuterol/Ipratropium (Albuterol/Iprat 2.5/0.5mg 3 Ml Ampul.Neb) 3 ml INHALE Q4H PRN PRN Reason: Wheezing Calcium Carbonate (Calcium Carbonate 750 Mg Tab.Chew) 750 mg PO Q4H PRN PRN Reason: Heartburn Enoxaparin Sodium (Enoxaparin Sodium 40 Mg/0.4 Ml Syringe) 40 mg SUBCUT Q24H [facility] Fluticasone/Vilanterol (Fluticasone/Vilanterol 100/25 Blst.W.Dev) 1 puff INHALE RDAILY [facility] Last Admin: 08/26/24 08:06 Dose: 1 puff Hydroxyzine HCl (Hydroxyzine Hcl 50 Mg Tablet) 50 mg PO Q6H PRN PRN Reason: Anxiety Last Admin: 08/25/24 21:28 Dose: 50 mg Azithromycin 500 mg/ Sodium (Chloride) 250 mls @ 125 mls/hr IV Q24H [facility] Last Admin: 08/25/24 17:32 Dose: Not Given Magnesium Hydroxide (Milk Of Magnesia 30 Ml Oral.Susp) 30 ml PO DAILY PRN PRN Reason: Constipation Megestrol Acetate (Megestrol Acetate 20 Mg Tablet) 40 mg PO DAILY [facility] Last Admin: 08/26/24 08:53 Dose: 40 mg Melatonin (Melatonin 3 Mg Tablet) 6 mg PO BEDTIME PRN PRN Reason: Insomnia Last Admin: 08/25/24 21:29 Dose: 6 mg Nicotine (Nicotine 14 Mg Patch.Td24) 14 mg TRANSDERMA DAILY [facility] Last Admin: 08/26/24 08:52 Dose: 14 mg Nicotine Polacrilex (Nicotine Polacrilex 2 Mg Gum) 2 mg BUCCAL Q2H PRN PRN Reason: Nicotine Cravings Last Admin: 08/22/24 19:25 Dose: 2 mg Ondansetron HCl (Ondansetron Hcl 4 Mg/2 Ml Vial) 4 mg IVPUSH Q8H PRN PRN Reason: Nausea and Vomiting Prednisone (Prednisone 10 Mg Tablet) 30 mg PO DAILY [facility] Quetiapine Fumarate (Quetiapine Fumarate 25 Mg Tablet) 25 mg PO BEDTIME [facility] Last Admin: 08/25/24 21:28 Dose: 25 mg Sertraline HCl (Sertraline Hcl 50 Mg Tablet) 50 mg PO DAILY [facility] Last Admin: 08/26/24 08:53 Dose: 50 mg Sodium Chloride (0.9 % Sodium Chloride Flush 3 Ml Syringe) 3 ml IVFLUSH QSHIFT [facility] Last Admin: 08/26/24 08:36 Dose: Not Given Tiotropium [place] (Tiotropium [place] 2.5 Mcg 1 Puff/2.5 Mcg Mist.Inhal) 1 puff INHALE RDAILY [facility] Last Admin: 08/26/24 08:06 Dose: 1 puff Valacyclovir HCl (Valacyclovir Hcl 500 Mg Tablet) 500 mg PO ONCE PRN PRN Reason: cold sores Allergies Allergies Allergy/AdvReac Type Severity Reaction Status Date / Time No Known Allergies Allergy Verified 08/19/24 17:42 Assessment & Plan Assessment & Plan (1) Major neurocognitive disorder: Status: Acute Code(s): F03.90 - Unspecified dementia, unspecified severity, without behavioral disturbance, psychotic disturbance, mood disturbance, and anxiety Plan MOCA shows significant impairments in language including naming, repetition, fluency, visuo spatial, orientation. ACL 4.2 which also shows moderate cognitive impairment. Her pattern of cognitive impairment along with MRI findings with predominant atrophy in temporal lobes suggest Alzheimer's Disorder. She may benefit from aricept. Also, needs VNA to manage medications and assistance with finances and coordination of care. discussed findings with daughter, Cuca, who is HCP. Pt may be able to return home with daily VNA. terminal manager planning discussed with HCP. Total time managing care of this patient today ____ minutes.
--- NOTE | 2024-08-26 16:59 | P.PNIM_ITS ---
Subjective Subjective Date of Service: 08/26/24 Interval History: copd Review of Systems no sob no new c/o Physical Exam 2 Vital Signs: Vital Signs: Last Vital Signs Temp 98.8 F 08/26/24 15:11 Pulse 100 08/26/24 15:11 Resp 17 08/26/24 15:11 BP 103/68 08/26/24 15:11 Pulse Ox 93 08/26/24 15:11 O2 Del Method Room Air 08/26/24 15:11 O2 Flow Rate 1 08/25/24 00:00 FiO2 30 08/20/24 03:04 Oxygen Flow Rate 4 08/19/24 17:36 BMI result Body Mass Index 16.1 General: AO X 3, no acute distress Resp: CTA bilateral CVS: S1,S2,RRR GI: +BS, NT, no distention Skin: No rash Neuro: motor grossly intact Psych: appropriate affect Objective Data Active Medications Acetaminophen (Acetaminophen 325 Mg Tablet) 650 mg PO Q6H PRN PRN Reason: Pain, Mild (Pain Scale 1-3), fever or headache Albuterol/Ipratropium (Albuterol/Iprat 2.5/0.5mg 3 Ml Ampul.Neb) 3 ml INHALE RQ4H WHILE AWAKE [facility] Last Admin: 08/26/24 15:29 Dose: Not Given Documented By: ARNOL Non-Admin Reason: Patient Refused Albuterol/Ipratropium (Albuterol/Iprat 2.5/0.5mg 3 Ml Ampul.Neb) 3 ml INHALE Q4H PRN PRN Reason: Wheezing Calcium Carbonate (Calcium Carbonate 750 Mg Tab.Chew) 750 mg PO Q4H PRN PRN Reason: Heartburn Enoxaparin Sodium (Enoxaparin Sodium 40 Mg/0.4 Ml Syringe) 40 mg SUBCUT Q24H [facility] Fluticasone/Vilanterol (Fluticasone/Vilanterol 100/25 Blst.W.Dev) 1 puff INHALE RDAILY [facility] Last Admin: 08/26/24 08:06 Dose: 1 puff Documented By: MARVIN Hydroxyzine HCl (Hydroxyzine Hcl 50 Mg Tablet) 50 mg PO Q6H PRN PRN Reason: Anxiety Last Admin: 08/25/24 21:28 Dose: 50 mg Documented By: REMBERTO Magnesium Hydroxide (Milk Of Magnesia 30 Ml Oral.Susp) 30 ml PO DAILY PRN PRN Reason: Constipation Megestrol Acetate (Megestrol Acetate 20 Mg Tablet) 40 mg PO DAILY [facility] Last Admin: 08/26/24 08:53 Dose: 40 mg Documented By: VANESSA Melatonin (Melatonin 3 Mg Tablet) 6 mg PO BEDTIME PRN PRN Reason: Insomnia Last Admin: 08/25/24 21:29 Dose: 6 mg Documented By: REMBERTO Nicotine (Nicotine 14 Mg Patch.Td24) 14 mg TRANSDERMA DAILY [facility] Last Admin: 08/26/24 08:52 Dose: 14 mg Documented By: VANESSA Nicotine Polacrilex (Nicotine Polacrilex 2 Mg Gum) 2 mg BUCCAL Q2H PRN PRN Reason: Nicotine Cravings Last Admin: 08/22/24 19:25 Dose: 2 mg Documented By: LILIA Ondansetron HCl (Ondansetron Hcl 4 Mg/2 Ml Vial) 4 mg IVPUSH Q8H PRN PRN Reason: Nausea and Vomiting Prednisone (Prednisone 10 Mg Tablet) 30 mg PO DAILY [facility] Quetiapine Fumarate (Quetiapine Fumarate 25 Mg Tablet) 25 mg PO BEDTIME [facility] Last Admin: 08/25/24 21:28 Dose: 25 mg Documented By: REMBERTO Sertraline HCl (Sertraline Hcl 50 Mg Tablet) 50 mg PO DAILY [facility] Last Admin: 08/26/24 08:53 Dose: 50 mg Documented By: VANESSA Sodium Chloride (0.9 % Sodium Chloride Flush 3 Ml Syringe) 3 ml IVFLUSH QSHIFT [facility] Last Admin: 08/26/24 15:59 Dose: Not Given Documented By: VANESSA Non-Admin Reason: No Access Tiotropium [place] (Tiotropium [place] 2.5 Mcg 1 Puff/2.5 Mcg Mist.Inhal) 1 puff INHALE RDAILY [facility] Last Admin: 08/26/24 08:06 Dose: 1 puff Documented By: MARVIN Valacyclovir HCl (Valacyclovir Hcl 500 Mg Tablet) 500 mg PO ONCE PRN PRN Reason: cold sores Labs 08/21/24 07:52 08/22/24 06:44 Assessment and Plan (1) Cognitive impairment: Status: Acute (2) Acute exacerbation of chronic obstructive pulmonary disease: Status: Acute (3) Hypoxia: Status: Acute Plan 59yo F with COPD not on home O2, tobacco abuse, bipolar, protein calorie malnutrition presenting with dyspnea + hypoxia [70s at Urgent Care], briefly on BiPAP in ED and was admitted and given IV steroid and bronchodilators by Nebulizer. Over the course of hospitalization she has progresively improved and has been succesfully weaned off Oxygen. Initially, we thought she might need oxygen at home yet on repeat testing, there was no indication for home o2. She is breathing comfortabley on room air. brooks prednisone mood disorder - quetiapine, sertraline Advanced dementia--per Psych lacks capacity, HCP invoked tobacco abuse - nicotine replacement moderate protein-calorie malnutrition - megestrol, supplements Discussed with daughter, hcp ongoing need -need placement Quality Stroke Does the patient have a stroke diagnosis?: No VTE Prior VTE?: No VTE Risk Level:: Medical - moderate - high VTE Device Contraindication: Treatment Not Indicated VTE Drug Contraindication: N/A - Med Ordered
[2024-08-26] MEDS: QUEtiapine Fumarate 25 MG TABLET PO (20:21)
[2024-08-27] VITALS (10 sets, daily range): BP systolic 104–121; BP diastolic 61–73; PULSE 78–105; RESP 17–22; TEMP 36.1–37.7; O2SAT 90–99
[2024-08-27] MEDS: Melatonin 3 MG TABLET 6 MG PO (00:53)
[2024-08-27] MEDS: Nicotine Polacrilex 2 MG GUM BUCCAL (01:37)
[2024-08-27] MEDS: Tiotropium Bromide 2.5 mcg 1 PUFF/2.5 MCG MIST.INHAL INHALE (08:11)
[2024-08-27] MEDS: Fluticasone/Vilanterol 100/25 BLST.W.DEV 1 PUFF INHALE (08:11)
[2024-08-27] MEDS: Albuterol/Iprat 2.5/0.5MG 3 ML AMPUL.NEB INHALE ×3 (08:11→20:10)
--- NOTE | 2024-08-27 09:01 | MHC.CLN ---
F/U PT IS MODERATELY MALNOURISHED PO INTAKE: 100% X3 MEALS NOTED MEGACE IN PLACE DIET RX: REGULAR -APPROPRIATE PT RECEIVING ENSURE BID PROVIDES 700KCALS, 40G PROTEIN CONTINUE TO MONITOR PO INTAKE AND ENCOURAGE SUPPLEMENT WEEKLY WEIGHTS
[2024-08-27] MEDS: Nicotine 14 MG PATCH.TD24 TRANSDERMA (09:04)
[2024-08-27] MEDS: predniSONE 10 MG TABLET 30 MG PO (09:05)
[2024-08-27] MEDS: Sertraline HCL 50 MG TABLET PO (09:05)
[2024-08-27] MEDS: Megestrol Acetate 20 MG TABLET 40 MG PO (09:05)
--- NOTE | 2024-08-27 13:02 | P.DS_ITS ---
DS: Providers Provider Date of Service: 08/29/24 Date of admission: 08/20/24 04:10 Date of discharge: 08/29/24 Primary care physician: Vito Guardado MD Consults: 08/22/24 11:06 Consult to Psychiatry Routine Consulting Provider: Psych Covering Reason for consultation: assess compentency 08/24/24 07:24 Consult to Psychiatry Stat Consulting Provider: Psych Covering Reason for consultation: compentency Attending physician on discharge: Tyler Ding Discharging clinician: Tyler Ding DS: Diagnosis Discharge Diagnosis (1) Cognitive impairment: Status: Acute (2) Acute exacerbation of chronic obstructive pulmonary disease: Status: Resolved (3) Hypoxia: Status: Resolved DS: Summary Hospital Course Hospital Course: Date of service as discharge:08/29/24. admission hpi Chief Complaint: Dyspnea This is a 59-year-old female with pertinent history of COPD not on home oxygen, tobacco use disorder, bipolar disorder, protein energy malnutrition who presents to the emergency department for evaluation of dyspnea. Patient states the dyspnea has been ongoing for a while but the daughter saw that she was more short of breath on the day of presentation and got the patient to urgent care. Patient was satting in the 70s and patient was sent to the ER on supplemental oxygen. Patient does endorse cough which is productive with whitish sputum production. No sick contacts. No fever, chills, chest pain or palpitations. Patient continues to smoke cigarettes. No nausea, vomiting, abdominal pain, changes in urinary or bowel habits. In the emergency department, patient initially required BiPAP and was placed on supplemental oxygen. Given IV steroids and DuoNebs in the ER. Hospital course: 59yo F with COPD not on home O2, tobacco abuse, bipolar, protein calorie malnutrition presenting with dyspnea + hypoxia [70s at Urgent Care], briefly on BiPAP in ED and was admitted and given IV steroid and bronchodilators by Nebulizer. Over the course of hospitalization she has progresively improved and has been succesfully weaned off Oxygen. Initially, we thought she might need oxygen at home yet on repeat testing, there was no indication for home o2. She is breathing comfortabley on room air. She will be discharged with Predinsone tappe and to continue use home inhalers. Smoking cessation is highly discouraged. mood disorder- quetiapine, sertraline tobacco abuse- nicotine replacement moderate protein-calorie malnutrition- megestrol, supplements hypokalemia:resolved moniter bmp outpatient. plan: hypokalemia:resolved,moniter bmp outpatient. complete prednisone taper. Psych recommended-Aricept , 5 mg Aricept p.o. q.h.s. added, follow-up with psych for further management outpatient. Psych has seen patient and plan-home with [facility] PT OT, [facility]. Assessment and plan coordination time spent 40 minute. She will be going home with [facility] for med management and home PT. Time Attestation Total time managing care of this patient today: 40 mintues. Discharge Coordination Time (in mins): 40 min Quality: Safe Use of Opioids Does Pt have an Active Cancer Diagnosis on the Problem List?: No Quality: Stroke Does the patient have a stroke diagnosis?: No Physical Exam Vital Signs: Vital Signs: Last Vital Signs Temp 97.3 F 08/27/24 11:37 Pulse 90 08/27/24 11:37 Resp 20 08/27/24 11:37 BP 105/67 08/27/24 11:37 Pulse Ox 90 L 08/27/24 11:40 O2 Del Method Room Air 08/27/24 11:37 O2 Flow Rate 2.5 08/26/24 19:21 FiO2 30 08/20/24 03:04 Oxygen Flow Rate 4 08/19/24 17:36 BMI result Body Mass Index 16.1 General: AO X 3, no acute distress Resp: CTA bilateral CVS: S1,S2,RRR GI: +BS, NT, no distention Skin: No rash Neuro: motor grossly intact Psych: appropriate affect DS: Data Imaging Chest x-ray: Radiologist's impression: ITS Impressions Chest X-Ray 08/19/24 17:57 IMPRESSION: Chronic emphysematous changes and pulmonary hyperinflation. Superimposed obstructive process/exacerbation could be considered. Electronically signed by: Vivek De La Rosa MD 08/19/2024 07:14 PM EDT Discharge Plan Discharge Anticipated Discharge Date/Time: 08/25/24 14:38 Patient Disposition: Home Health Service Discharge Diagnosis: Acute COPD exacerbation Referrals: [facility] [Other] - 1 Week (MOW AND ADDITIONAL HOME HEALTH HOURS REQUESTED. YOUR COMMUNITY SERVICE AIDE IS VANDA MCKNIGHT [phone] [phone].) [facility] [Other] - 1 Week (They will provide SN. She will assess for additional services required.) Vito Guardado MD [Primary Care Provider] - 1 Week (DR. GUARDADO'S OFFICE WILL CONTACT RODRÍGUEZ TO SCHEDULE A FOLLOW-UP APPT. ) Discharge Medications: New prednisone 10 mg tablet See Taper PO DIRECTED Qty: 12 0RF Taper: Prednisone 30 mg daily for 2 Days and 0 Hour 20 mg daily for 2 Days and 0 Hour 10 mg daily for 2 Days and 0 Hour Rx Instructions: see taper instructions donepezil 5 mg Tablet 5 mg PO BEDTIME Qty: 30 0RF Continued albuterol sulfate 90 mcg/actuation HFA aerosol inhaler 2 puff inhalation Q4-6H PRN (Reason: shortness of breath or wheezing) 30 Days Qty: 8.5 3RF tiotropium bromide [Spiriva with HandiHaler] 18 mcg capsule, w/inhalation device 1 cap inhalation DAILY 30 Days Qty: 30 2RF Rx Instructions: puncture 1 cap using device; one dose = 2 inhalations megestrol 40 mg tablet 40 mg PO DAILY 90 Days Qty: 90 3RF fluticasone propion-salmeterol [Wixela Inhub] 250-50 mcg/dose blister with device 1 inh inhalation BID 30 Days Qty: 60 3RF quetiapine [Seroquel] 25 mg tablet 25 mg PO BEDTIME 90 Days Qty: 90 1RF sertraline 50 mg tablet 50 mg PO DAILY Qty: 90 1RF (DME) nebulizer with all supplies See Rx Instructions .Route .MEDSUPPLY Qty: 1 0RF Rx Instructions: As directed ipratropium-albuterol 0.5 mg-3 mg(2.5 mg base)/3 mL solution for nebulization 3 ml inhalation Q8H PRN (Reason: wheezing) 30 Days Qty: 90 0RF valacyclovir 500 mg tablet 500 mg PO ONCE PRN (Reason: cold sores) Discharge Orders: Discharge Order (Routine); Ordered 08/27/24 Ordered By: Tyler Ding Diet: Advance to usual diet Activity on Discharge: As tolerated Stand Alone Forms: Patient Portal Discharge page Print Language: Turkmen Care Plan Goals: Recovery from COPD exacerbation, smoking cessation Health Concerns: COPD exacerbation with hypoxia which has now improved. Plan of Treatment: -Take Prednisone as directed and follow up with -Use inhalers as before -stop smoking -follow up with your doctor in a week Assessment: see
--- NOTE | 2024-08-27 13:58 | MHC.CM.PN ---
Spoke with daughter Cuca at [phone] regarding her concerns for mom's discharge. Explained while HCP was invoked, the psychiatric consult indicated mom was safe to live on her own with additional services/oversight. Cuca was concerned that mom was forgetful and would not be safe at home. Explained that medically mom was cleared for discharge. IMM verbally delivered and Cuca states she does not agree with discharge and will appeal via QIO.
--- NOTE | 2024-08-27 15:39 | MHC.CM.PN ---
CM DISCUSSED CASE W/KENDALL PROVIDER WHO REPORTS HER MAIN CONCERN FOR PT GOING HOME IS SOMEONE TO ASSIST W/MED MANAGEMENT, KENDALL ALSO REPORTED THEY DISCUSSED CASE W/DTR IN LENGTH AND THAT EVENTUALLY SHE WILL NEED PLACEMENT. CM CONTACTED PT'S DTR RODRÍGUEZ AFTER SPEAKING W/KENDALL PROVIDER THIS AM, RODRÍGUEZ DENIES SHE SPOKE W/HER ABOUT PT DISCHARGING HOME, OF NOTE RODRÍGUEZ HAS BEEN GIVING CM INFO AND THEN DENYING IT OR CONTRADICTING HERSELF W/CM SINCE SUNDAY AND APPEARS TO BE A BARRIER TO PT'S DC HOWEVER SHE IS ALSO HCP WHICH HAS BEEN INVOKED. CM CONTINUED TO DISCUSS PLAN OF NEW VNA FOR MED MANAGEMENT/PT, INCREASE IN [facility] HOURS W/ALEX ADDED AND MOWS BID, CM SPOKE TO [facility] NURSE LICENSED PRACTICAL IN DETAIL REGARDING PLAN FOR INCREASED SERVICES, VANDA MCKNIGHT [phone] [phone]. CM SET UP [facility] FOR MED MANAGEMENT AND HOME PT HOWEVER THEY NOTIFIED CM THAT THEY ARE NOT IN CONTRACT W/PT'S INSURANCE, HAS EXPANDED REFERRAL AND [facility] DID SAY THEY CAN DO A ONE TIME CONTRACT W/[employer], CM ALSO NOW WAITING FROM RESPONSE FROM [facility] THEY ALSO DO MED MANAGEMENT. CAREY RECEIVED A CALL BACK FROM RODRÍGUEZ AT APPROXIMATELY 1:20PM AND RODRÍGUEZ WAS DEMANDING TO TO TALK TO SOMEONE ABOVE THIS CM REGARDING CONCERNS, CM ESCALATED TO [facility] IA/ILO INTELLIGENCE SUPPORT. RODRÍGUE[facility] WILL APPEAL DISCHARGE, HOSPITALIST, NSG, PT AWARE.
--- NOTE | 2024-08-27 16:05 | P.PNIM_ITS ---
Subjective Subjective Date of Service: 08/27/24 Interval History: copd Review of Systems no sob,no new c/o Physical Exam 2 Vital Signs: Vital Signs: Last Vital Signs Temp 97.0 F 08/27/24 15:14 Pulse 100 08/27/24 15:14 Resp 17 08/27/24 15:14 BP 104/65 08/27/24 15:14 Pulse Ox 93 08/27/24 15:14 O2 Del Method Room Air 08/27/24 15:14 O2 Flow Rate 2.5 08/26/24 19:21 FiO2 30 08/20/24 03:04 Oxygen Flow Rate 4 08/19/24 17:36 BMI result Body Mass Index 16.1 General: AO X 3, no acute distress Resp: CTA bilateral CVS: S1,S2,RRR GI: +BS, NT, no distention Skin: No rash Neuro: motor grossly intact Psych: appropriate affect Objective Data Active Medications Acetaminophen (Acetaminophen 325 Mg Tablet) 650 mg PO Q6H PRN PRN Reason: Pain, Mild (Pain Scale 1-3), fever or headache Albuterol/Ipratropium (Albuterol/Iprat 2.5/0.5mg 3 Ml Ampul.Neb) 3 ml INHALE RQ4H WHILE AWAKE [facility] Last Admin: 08/27/24 15:38 Dose: Not Given Documented By: ARNOL Non-Admin Reason: Patient Refused Albuterol/Ipratropium (Albuterol/Iprat 2.5/0.5mg 3 Ml Ampul.Neb) 3 ml INHALE Q4H PRN PRN Reason: Wheezing Calcium Carbonate (Calcium Carbonate 750 Mg Tab.Chew) 750 mg PO Q4H PRN PRN Reason: Heartburn Enoxaparin Sodium (Enoxaparin Sodium 40 Mg/0.4 Ml Syringe) 40 mg SUBCUT Q24H [facility] Last Admin: 08/27/24 09:06 Dose: Not Given Documented By: AICHA Non-Admin Reason: Patient Refused Fluticasone/Vilanterol (Fluticasone/Vilanterol 100/25 Blst.W.Dev) 1 puff INHALE RDAILY [facility] Last Admin: 08/27/24 08:11 Dose: 1 puff Documented By: MARVIN Hydroxyzine HCl (Hydroxyzine Hcl 50 Mg Tablet) 50 mg PO Q6H PRN PRN Reason: Anxiety Last Admin: 08/25/24 21:28 Dose: 50 mg Documented By: REMBERTO Magnesium Hydroxide (Milk Of Magnesia 30 Ml Oral.Susp) 30 ml PO DAILY PRN PRN Reason: Constipation Megestrol Acetate (Megestrol Acetate 20 Mg Tablet) 40 mg PO DAILY [facility] Last Admin: 08/27/24 09:05 Dose: 40 mg Documented By: AICHA Melatonin (Melatonin 3 Mg Tablet) 6 mg PO BEDTIME PRN PRN Reason: Insomnia Last Admin: 08/27/24 00:53 Dose: 6 mg Documented By: SWEETIE Nicotine (Nicotine 14 Mg Patch.Td24) 14 mg TRANSDERMA DAILY [facility] Last Admin: 08/27/24 09:04 Dose: 14 mg Documented By: AICHA Nicotine Polacrilex (Nicotine Polacrilex 2 Mg Gum) 2 mg BUCCAL Q2H PRN PRN Reason: Nicotine Cravings Last Admin: 08/27/24 01:37 Dose: 2 mg Documented By: SWEETIE Ondansetron HCl (Ondansetron Hcl 4 Mg/2 Ml Vial) 4 mg IVPUSH Q8H PRN PRN Reason: Nausea and Vomiting Prednisone (Prednisone 10 Mg Tablet) 30 mg PO DAILY [facility] Last Admin: 08/27/24 09:05 Dose: 30 mg Documented By: AICHA Quetiapine Fumarate (Quetiapine Fumarate 25 Mg Tablet) 25 mg PO BEDTIME [facility] Last Admin: 08/26/24 20:21 Dose: 25 mg Documented By: SWEETIE Sertraline HCl (Sertraline Hcl 50 Mg Tablet) 50 mg PO DAILY [facility] Last Admin: 08/27/24 09:05 Dose: 50 mg Documented By: AICHA Sodium Chloride (0.9 % Sodium Chloride Flush 3 Ml Syringe) 3 ml IVFLUSH QSHIFT [facility] Last Admin: 08/27/24 09:05 Dose: Not Given Documented By: AICHA Non-Admin Reason: No Access Tiotropium [place] (Tiotropium [place] 2.5 Mcg 1 Puff/2.5 Mcg Mist.Inhal) 1 puff INHALE RDAILY [facility] Last Admin: 08/27/24 08:11 Dose: 1 puff Documented By: MARVIN Valacyclovir HCl (Valacyclovir Hcl 500 Mg Tablet) 500 mg PO ONCE PRN PRN Reason: cold sores Labs 08/21/24 07:52 08/22/24 06:44 Assessment and Plan (1) Cognitive impairment: Status: Acute (2) Acute exacerbation of chronic obstructive pulmonary disease: Status: Resolved (3) Hypoxia: Status: Resolved Plan 59yo F with COPD not on home O2, tobacco abuse, bipolar, protein calorie malnutrition presenting with dyspnea + hypoxia [70s at Urgent Care], briefly on BiPAP in ED and was admitted and given IV steroid and bronchodilators by Nebulizer. Over the course of hospitalization she has progresively improved and has been succesfully weaned off Oxygen. Initially, we thought she might need oxygen at home yet on repeat testing, there was no indication for home o2. She is breathing comfortabley on room air. brooks prednisone mood disorder - quetiapine, sertraline Advanced dementia--per Psych lacks capacity, HCP invoked tobacco abuse - nicotine replacement moderate protein-calorie malnutrition - megestrol, supplements Discussed with daughter, hcp ongoing need -need placement Quality Stroke Does the patient have a stroke diagnosis?: No VTE Prior VTE?: No VTE Risk Level:: Medical - moderate - high VTE Device Contraindication: Treatment Not Indicated VTE Drug Contraindication: N/A - Med Ordered
[2024-08-27] MEDS: QUEtiapine Fumarate 25 MG TABLET PO (20:01)
[2024-08-27] MEDS: hydrOXYzine HCL 50 MG TABLET PO (22:00)
[2024-08-28] VITALS (9 sets, daily range): BP systolic 106–131; BP diastolic 57–73; PULSE 89–108; RESP 16–21; TEMP 36–37.7; O2SAT 91–98
[2024-08-28] MEDS: Sertraline HCL 50 MG TABLET PO (08:53)
[2024-08-28] MEDS: predniSONE 10 MG TABLET 30 MG PO (08:53)
[2024-08-28] MEDS: Nicotine 14 MG PATCH.TD24 TRANSDERMA (08:53)
[2024-08-28] MEDS: Megestrol Acetate 20 MG TABLET 40 MG PO (08:53)
[2024-08-28] MEDS: Albuterol/Iprat 2.5/0.5MG 3 ML AMPUL.NEB INHALE ×3 (11:23→18:22)
--- NOTE | 2024-08-28 12:36 | MHC.CM.PN ---
Addendum entered by Hilaria Cam 08/28/24 15:25: A referral has been sent to [facility] for Options councilors for home services. [facility] home health services will provide SN+PT services at discharge. Original Note: HCP has filed an Appeal to patients discharge.
--- NOTE | 2024-08-28 13:34 | HO.PM.IMPN ---
Subjective Subjective Date of Service: 08/29/24 Interval History: copd Review of Systems no new c/o Physical Exam Vital Signs: Vital Signs: Last Vital Signs Temp 98.8 F 08/28/24 11:17 Pulse 89 08/28/24 11:25 Resp 21 H 08/28/24 11:25 BP 124/73 08/28/24 11:17 Pulse Ox 92 08/28/24 11:17 O2 Del Method Room Air 08/28/24 11:17 O2 Flow Rate 2.5 08/26/24 19:21 FiO2 30 08/20/24 03:04 Oxygen Flow Rate 4 08/19/24 17:36 BMI result Body Mass Index 16.1 General: AO X 3, no acute distress Resp: CTA bilateral CVS: S1,S2,RRR GI: +BS, NT, no distention Skin: No rash Neuro: motor grossly intact Psych: appropriate affect Objective Data Active Medications Acetaminophen (Acetaminophen 325 Mg Tablet) 650 mg PO Q6H PRN PRN Reason: Pain, Mild (Pain Scale 1-3), fever or headache Albuterol/Ipratropium (Albuterol/Iprat 2.5/0.5mg 3 Ml Ampul.Neb) 3 ml INHALE RQ4H WHILE AWAKE ON LICENSE OF [facility] Last Admin: 08/28/24 11:23 Dose: 3 ml Documented By: MARGARITO Albuterol/Ipratropium (Albuterol/Iprat 2.5/0.5mg 3 Ml Ampul.Neb) 3 ml INHALE Q4H PRN PRN Reason: Wheezing Calcium Carbonate (Calcium Carbonate 750 Mg Tab.Chew) 750 mg PO Q4H PRN PRN Reason: Heartburn Enoxaparin Sodium (Enoxaparin Sodium 40 Mg/0.4 Ml Syringe) 40 mg SUBCUT Q24H ON LICENSE OF [facility] Last Admin: 08/28/24 08:59 Dose: Not Given Documented By: ABHINAV Non-Admin Reason: Patient Refused Fluticasone/Vilanterol (Fluticasone/Vilanterol 100/25 Blst.W.Dev) 1 puff INHALE RDAILY ON [facility] Last Admin: 08/28/24 08:01 Dose: Not Given Documented By: ARNOL Non-Admin Reason: Patient Refused Hydroxyzine HCl (Hydroxyzine Hcl 50 Mg Tablet) 50 mg PO Q6H PRN PRN Reason: Anxiety Last Admin: 08/27/24 22:00 Dose: 50 mg Documented By: SWEETIE Magnesium Hydroxide (Milk Of Magnesia 30 Ml Oral.Susp) 30 ml PO DAILY PRN PRN Reason: Constipation Megestrol Acetate (Megestrol Acetate 20 Mg Tablet) 40 mg PO DAILY [facility] Last Admin: 08/28/24 08:53 Dose: 40 mg Documented By: ABHINAV Melatonin (Melatonin 3 Mg Tablet) 6 mg PO BEDTIME PRN PRN Reason: Insomnia Last Admin: 08/27/24 00:53 Dose: 6 mg Documented By: SWEETIE Nicotine (Nicotine 14 Mg Patch.Td24) 14 mg TRANSDERMA DAILY [facility] Last Admin: 08/28/24 08:53 Dose: 14 mg Documented By: ABHINAV Nicotine Polacrilex (Nicotine Polacrilex 2 Mg Gum) 2 mg BUCCAL Q2H PRN PRN Reason: Nicotine Cravings Last Admin: 08/27/24 01:37 Dose: 2 mg Documented By: SWEETIE Ondansetron HCl (Ondansetron Hcl 4 Mg/2 Ml Vial) 4 mg IVPUSH Q8H PRN PRN Reason: Nausea and Vomiting Prednisone (Prednisone 10 Mg Tablet) 30 mg PO DAILY [facility] Last Admin: 08/28/24 08:53 Dose: 30 mg Documented By: ABHINAV Quetiapine Fumarate (Quetiapine Fumarate 25 Mg Tablet) 25 mg PO BEDTIME ON [facility] OF [facility] Last Admin: 08/27/24 20:01 Dose: 25 mg Documented By: SWEETIE Sertraline HCl (Sertraline Hcl 50 Mg Tablet) 50 mg PO DAILY [facility] Last Admin: 08/28/24 08:53 Dose: 50 mg Documented By: ABHINAV Sodium Chloride (0.9 % Sodium Chloride Flush 3 Ml Syringe) 3 ml IVFLUSH QSHIFT ON LICENSE OF [facility] Last Admin: 08/28/24 08:54 Dose: Not Given Documented By: ABHINAV Non-Admin Reason: No IV access Tiotropium [place] (Tiotropium [place] 2.5 Mcg 1 Puff/2.5 Mcg Mist.Inhal) 1 puff INHALE RDAILY ON LICENSE OF [facility] Last Admin: 08/28/24 08:01 Dose: Not Given Documented By: ARNOL Non-Admin Reason: Patient Refused Valacyclovir HCl (Valacyclovir Hcl 500 Mg Tablet) 500 mg PO ONCE PRN PRN Reason: cold sores Labs 08/21/24 07:52 08/29/24 11:25 Assessment and Plan (1) Cognitive impairment: Status: Acute (2) Acute exacerbation of chronic obstructive pulmonary disease: Status: Resolved (3) Hypoxia: Status: Resolved Plan 59yo F with COPD not on home O2, tobacco abuse, bipolar, protein calorie malnutrition presenting with dyspnea + hypoxia [70s at Urgent Care], briefly on BiPAP in ED and was admitted and given IV steroid and bronchodilators by Nebulizer. Over the course of hospitalization she has progresively improved and has been succesfully weaned off Oxygen. Initially, we thought she might need oxygen at home yet on repeat testing, there was no indication for home o2. She is breathing comfortabley on room air. brooks prednisone mood disorder - quetiapine, sertraline Advanced dementia--per Psych lacks capacity, HCP invoked tobacco abuse - nicotine replacement moderate protein-calorie malnutrition - megestrol, supplements need for stay-awaiting vna /service arrangements Quality Stroke Does the patient have a stroke diagnosis?: No VTE Prior VTE?: No VTE Risk Level:: Medical - moderate - high VTE Device Contraindication: Treatment Not Indicated VTE Drug Contraindication: N/A - Med Ordered
[2024-08-28] MEDS: QUEtiapine Fumarate 25 MG TABLET PO (20:35)
[2024-08-28] MEDS: Oxymetazoline HCl 0.05 % Nasal 15 ML SPRAY 2 SPRAY NOSTRIL-B (21:37)
[2024-08-29 03:52] VITALS: BP 138/65; PULSE 85; RESP 18; TEMP 36.5; O2SAT 95
[2024-08-29 07:23] VITALS: BP 109/64; PULSE 91; RESP 18; TEMP 36.1; O2SAT 93
[2024-08-29] MEDS: Fluticasone/Vilanterol 100/25 BLST.W.DEV 1 PUFF INHALE (07:32)
[2024-08-29] MEDS: Tiotropium Bromide 2.5 mcg 1 PUFF/2.5 MCG MIST.INHAL INHALE (07:32)
[2024-08-29] MEDS: Albuterol/Iprat 2.5/0.5MG 3 ML AMPUL.NEB INHALE ×2 (07:33→11:34)
[2024-08-29 07:34] VITALS: PULSE 91; RESP 18; O2SAT 96
[2024-08-29] MEDS: predniSONE 10 MG TABLET 30 MG PO (09:27)
[2024-08-29] MEDS: Nicotine 14 MG PATCH.TD24 TRANSDERMA (09:27)
[2024-08-29] MEDS: Sertraline HCL 50 MG TABLET PO (09:27)
--- NOTE | 2024-08-29 10:00 | MHC.CLN ---
F/U PT IS MODERATELY MALNOURISHED PO INTAKE: 100% X4 MEALS DIET RX: REGULAR -APPROPRIATE PT ALSO RECEIVING MEGACE PT RECEIVING ENSURE BID PROVIDES 700KCALS, 40G PROTEIN CONTINUE TO MONITOR PO INTAKE AND ENCOURAGE SUPPLEMENT WEEKLY WEIGHTS
--- NOTE | 2024-08-29 11:11 | W.MHC.F2F ---
Service Date Service Date: 08/29/24 Encounter Date of encounter: 08/29/24 Encounter: copd Reasons for Services Signs and symptoms assessed: sob Reason for detention: medication management, medication treatment and teach disease management Reason for physical therapy: home safety and mobility, therapeutic exercises, restore joint function, gait/transfer training, assess need for DME, ADL training, energy conservation and other Reason for occupational therapy: home safety and mobility, therapeutic exercises, restore joint function, gait/transfer training, assess need for DME, ADL training, energy conservation and other MD Overseeing Care: Vito Beal Homebound: Leaving the home is medically contraindicated at this time without the asist of a device and/or another person due th the listed conditions above and below. Reason homebound: weakness related to hospital stay Homebound supporting statement: Patient is generalized weak, has multiple comorbidities-need help to go to appointments, PT OT and VNA. Certification: Based on the above findings, I certify that this patient is confined to the home and needs intermittent detention care, physical therapy and/or speech therapy, or continues to need occupational therapy. The patient is under my care, and I have initiated the establishment of the plan of care. The patient will be followed by a physician who will periodically review the plan of care. Time Spent With Patient Time: Total time managing care of this patient today ____ minutes.
[2024-08-29 11:34] VITALS: PULSE 80; RESP 16; O2SAT 95
[2024-08-29 11:51] LABS: Potassium 3.4 mmol/L (3.3-5.1)
[2024-08-29 11:58] VITALS: BP 116/70; PULSE 99; RESP 20; TEMP 37.3; O2SAT 94
--- NOTE | 2024-08-29 13:11 | MHC.CM.PN ---
The discharge appeal decision has made and the discharge stands. Spoke with Patients DTR/HCP/Cuca to review the discharge plan. A new medication has been prescribed for Dementia, Aricept. Home services have been set up. [facility] will provide home services. 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 [facility] will provide MOW and last model maker. The patient's workers compensation legal secretary, Brittany has been notified of the dc today. [facility] coordinated home services with the CM. Patients dtr will transport patient home today. 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
== END 2024-08-29 15:12 | disposition home health service (06) | DRG 191 ==
LOC: HO.ED 21:45 → HO.EDOVER 08-20 04:15 → HO.IMC 08-20 07:56
PROVIDERS: Family Medicine; Admitting Provider Student in an Organized Health Care Education/Training Program; Emergency Provider Emergency Medicine; PCP Internal Medicine; Visit Provider Internal Medicine
DX: J44.1 Chronic obstructive pulmonary disease with (acute) exacerbation (principal); E44.0 Moderate protein-calorie malnutrition; E87.0 Hyperosmolality and hypernatremia; Z68.1 Body mass index [BMI] 19.9 or less, adult; F03.90 Unspecified dementia, unspecified severity, without behavioral disturbance, psychotic disturbance, mood disturbance, and anxiety; E87.6 Hypokalemia; F31.9 Bipolar disorder, unspecified; F17.210 Nicotine dependence, cigarettes, uncomplicated; Z71.6 Tobacco abuse counseling; Z20.822 Contact with and (suspected) exposure to COVID-19; Z79.51 Long term (current) use of inhaled steroids; Z79.899 Other long term (current) drug therapy
CPT/HCPCS: 0241U; 36415; 71045; 80048; 80076; 80307; 82803; 83735; 83880; 84132; 84484; 85025; 85027; 86140; 93005; 97161; 97165; 99285; J0456; J1650; J2919; J7120

== ENCOUNTER → 2024-08-19 17:57 | Outpatient (BNV) | payer MEDICARE, SELFPAY | PROVIDERS: Admitting Provider Student in an Organized Health Care Education/Training Program; Emergency Provider Emergency Medicine; PCP Internal Medicine; Visit Provider Internal Medicine Cardiovascular Disease | DX: R06.02 Shortness of breath (principal); R94.31 Abnormal electrocardiogram [ECG] [EKG] | CPT/HCPCS: 93010 ==

== ENCOUNTER → 2024-08-20 04:10 | Outpatient (BNV) | payer OTHER, SELFPAY | PROVIDERS: Admitting Provider Student in an Organized Health Care Education/Training Program; Emergency Provider Emergency Medicine; PCP Internal Medicine; Visit Provider Social Worker | DX: F03.90 Unspecified dementia, unspecified severity, without behavioral disturbance, psychotic disturbance, mood disturbance, and anxiety (principal) | CPT/HCPCS: 99232 ==

== ENCOUNTER → 2024-08-20 04:10 | Outpatient (BNV) | payer MEDICARE, SELFPAY | PROVIDERS: Admitting Provider Student in an Organized Health Care Education/Training Program; Emergency Provider Emergency Medicine; PCP Internal Medicine; Visit Provider Student in an Organized Health Care Education/Training Program | DX: R41.89 Other symptoms and signs involving cognitive functions and awareness (principal); J44.1 Chronic obstructive pulmonary disease with (acute) exacerbation; J96.01 Acute respiratory failure with hypoxia | CPT/HCPCS: 99223; 99231; 99232; 99239; 99499; G0180 ==

== ENCOUNTER 2024-09-02 13:56 | Outpatient (AMB) | payer MEDICARE, SELFPAY ==
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
[2024-09-02 14:01] VITALS: BP 136/84; PULSE 98; O2SAT 94; BMI 15.3
== END 2024-09-02 14:57 | disposition home or self-care (01) ==
LOC: HO.HSMS 13:57
PROVIDERS: PCP Internal Medicine; Visit Provider Nurse Practitioner Family
DX: F03.90 Unspecified dementia, unspecified severity, without behavioral disturbance, psychotic disturbance, mood disturbance, and anxiety (principal); S06.5XAA Traumatic subdural hemorrhage with loss of consciousness status unknown, initial encounter; R62.7 Adult failure to thrive
CPT/HCPCS: 99214; G2211

== ENCOUNTER → 2024-09-02 13:56 | Outpatient (BNVA) | payer MEDICARE, SELFPAY | PROVIDERS: PCP Internal Medicine; Visit Provider Nurse Practitioner Family | DX: F03.90 Unspecified dementia, unspecified severity, without behavioral disturbance, psychotic disturbance, mood disturbance, and anxiety (principal); S06.5XAA Traumatic subdural hemorrhage with loss of consciousness status unknown, initial encounter; R62.7 Adult failure to thrive; F17.210 Nicotine dependence, cigarettes, uncomplicated; X58.XXXA Exposure to other specified factors, initial encounter; Y93.9 Activity, unspecified; Y92.9 Unspecified place or not applicable; Y99.9 Unspecified external cause status | CPT/HCPCS: 99212 ==

== ENCOUNTER 2024-09-05 11:03 | Outpatient (AMB) | payer MEDICARE, SELFPAY ==
[2024-09-05 11:07] VITALS: BP 126/72; PULSE 87; O2SAT 94; BMI 14.8
--- NOTE | 2024-09-05 11:07 | MHC.PC.OV ---
Vital Signs 09/05/24 11:07 Height 5 ft 4 in Weight 86 lb 8 oz BMI 14.8 BP 126/72 Blood Pressure Location Lt brachial Position Sitting Pulse 87 Pulse Source Pulse Oximeter Pulse Oximetry (%) 94 Oxygen Delivery Method Room Air Intake Visit Reasons: TCM Allergies No Known Allergies Allergy (Verified 09/05/24 11:10) Medication List - Last Reconciled 09/05/24 by Vito Beal MD albuterol sulfate 90 mcg/actuation 2 puffs inhalation Q4-6H PRN 30 days donepezil 5 mg PO BEDTIME fluticasone propion-salmeterol 250-50 mcg/dose (Wixela Inhub) 1 inh inhalation BID 30 days ipratropium-albuterol 0.5 mg-3 mg(2.5 mg base)/3 mL 3 mL inhalation Q8H PRN 30 days megestrol 40 mg PO DAILY 90 days [nebulizer with all supplies As directed] prednisone See Taper mg PO DIRECTED quetiapine (Seroquel) 25 mg PO BEDTIME 90 days sertraline 50 mg PO DAILY tiotropium bromide (Spiriva with HandiHaler) 1 cap inhalation DAILY 30 days valacyclovir 500 mg PO ONCE PRN Tobacco use date assessed: 09/05/24 Dental Screening Dental Screen Date: 09/05/24 Did you have a dental visit in the last 12 months?: No Did you have a dental problem in the last 6 months where you did not have access to dental care?: No Was dental information given to patient?: No HPI HPI Comments History of Present Illness Details Date of admission/discharge: Due to admission August 19 2024, date of discharge 08/29/2024 Follow-up from admission [facility] 08/29/2024 This is a 59-year-old female with severe COPD but not on home oxygen, continued to smoke, bipolar disorder, protein calorie malnutrition presented with dyspnea and hypoxia with pulse ox of 70 in walk-in clinic. So sent to emergency room In emergency room she was on BiPAP briefly before admission Dated with IV steroid and bronchodilators by maeve She gradually improved and was weaned off oxygen Before discharge patient was tested for possible need of oxygen but she did not. She was breathing comfortably on room air Patient also have a long history of depression and is on Seroquel and sertraline currently Came in with her daughter for follow-up appointment She is back to baseline. Patient is upset that she is not allowed to drive. She tells me that she will only be driving locally so that she can visit her mother's burial place She will not be driving on highway. She has an appointment coming up with the neurologist in October I have given a letter to the daughter that she may continue driving locally until seen by the neurologist She also promised that she will stop drinking and smoking. I have given written prescription for the updraft machine and DuoNeb along with Spiriva. Discharge 2/current location: Living with daughter currently Diagnosis/procedure: COPD exacerbation/respiratory failure New/DC medications: Prednisone, patient is done with that Changed medication/dozing: None Pending labs/tests: None How are you feeling? Back to baseline Any pain or discomfort? None Do you have any questions about your condition or discharge instructions? Patient's daughter is concerned that she can not live on her own But patient continued to declined any help Were you able to get her medications filled? Yes Do you have any questions about your medications? No Were you able to schedule your follow-up appointments? Yes If home health was ordered, have they contacted you? None ordered Any outpatient services, if so, are you scheduled? None Are there any additional resources like transportation you might need during your recovery? Not at this time Educational needs/resources: None needed What support system do you have? Daughter lives nearby [facility] Medical History Acute on chronic hypoxic respiratory failure Nicotine dependence, cigarettes, uncomplicated Anal itching Vaginal discharge Colonoscopy refused Palpitation Colon cancer screening Non-compliance Anorexia nervosa Underweight Urinary urgency Eczema Mammogram declined Surgical History History of cervical biopsy History of tonsillectomy History of surgery on arm Family History Father Family history unknown Mother COPD (chronic obstructive pulmonary disease) Sister No problems noted. Sister COPD (chronic obstructive pulmonary disease) Social History Household Members: None Housing: Apartment Do you presently have visiting nurse or other home services: No Alcohol intake: current Alcohol intake frequency: 0-2 drinks per day Alcohol type: hard liquor Patient Tobacco Use Status: Current everyday Tobacco user Tobacco use type: Cigarette Cigarettes Per Day: 15 Years Smoked: onset 13yo, 1ppd x 45yrs, now1/2ppd - 40pyh e-Cigarette/Vaping Use: Never Used Second Hand Smoke Exposure: No Substance Use Type: Marijuana service: No Current occupational status: disabled Sexual orientation: Straight/Heterosexual Gender identity: Female Cognitive needs: No Hearing needs: No Vision needs: No Questionnaire Thrive Questionnaire Date Thrive assessed: 09/05/24 I am a: Patient What is your living situation today?: I have a steady place to live Within the past 12 months, did the food you bought not last and you didn't have the money to get more?: Never true Within the past 12 months, did you worry whether your food would run out before you got money to buy more?: Never true Do you have trouble paying for medicines?: No Do you have trouble getting transportation to medical appointments?: No Do you have trouble paying your heating and electricity bill?: No Do you have trouble taking care of your child, family member or friend?: No Do you have trouble with day-to-day activities such as bathing, preparing meals, shopping, managing finances, etc.?: Yes Are you currently unemployed and looking for a job?: No Are you interested in more education?: No Please select the resources that you would like help with: None Currently or been in a relationship where the following occur: No concerns reported THRIVE Score: 0 AUDIT C Alcohol Use Questionnaire (AUDIT-C) 1. How often do you have a drink containing alcohol?: 4 or more times a week 2. How many drinks containing alcohol do you have on a typical day when you are drinking?: 1 or 2 3. How often do you have six or more drinks on one occasion?: Never Total Score: 4 Score Reviewed/Action Taken: Yes STEVE-7 AMB Questionnaire STEVE-7 Date STEVE - 7 assessed: 09/05/24 Feeling nervous, anxious, or on edge: 3 = Nearly every day Not being able to stop or control worryin = Nearly every day Worrying too much about different things: 3 = Nearly every day Trouble relaxin = Nearly every day Being so restless that it is hard to sit still: 3 = Nearly every day Becoming easily annoyed or irritable: 3 = Nearly every day Feeling afraid as if something awful might happen: 3 = Nearly every day Total STEVE-7 score (0-4 normal; 5-9 mild; 10-14 moderate; 15-21 severe): 21 Source: Developed by Drs. Ganga Bauer, Brooklyn Benedict, Dionte Puente and colleagues, with an educational albert from [employer]. STEVE-7 Assessment Billing STEVE-7 Assessment Tool: STEVE-7 Assessment 98790 Review of Systems Const Denies chills and Denies fever(s) ENT Denies epistaxis and Denies nasal discharge Card Denies chest pain Resp Denies chest congestion, Denies cough and Denies hemoptysis GI Denies diarrhea and Denies nausea Skin/Breast Denies rash Neuro Reports no additional complaints Psych Reports no additional complaints Endo Reports no additional complaints Physical exam (Primary Care) Vital Signs: Last Vital Signs Pulse 87 09/05/24 11:07 BP 126/72 09/05/24 11:07 Pulse Ox 94 09/05/24 11:07 Oxygen Delivery Method Room Air 09/05/24 11:07 BMI result Body Mass Index 14.8 Tobacco/Smoking Status: Tobacco use Status Tobacco use date assessed 09/05/24 09/05/24 11:10 Patient Tobacco Use Status Current everyday Tobacco 09/05/24 11:10 Tobacco use type Cigarette 09/05/24 11:10 e-Cigarette/Vaping Use Never Used 09/05/24 11:10 Thrive Assessment: Date of Thrive Assessment Date Thrive assessed 09/05/24 09/05/24 11:10 Currently or been in a relationship where the following occur: No concerns reported Const General: cooperative, comfortable and no acute distress Orientation/consciousness: patient oriented x3 HENMT Head: Yes normocephalic Eyes General: appearance normal, both eyes and all related structures Neck Neck: Yes supple Resp Effort & Inspection: no cough and no stridor Cardio Rhythm: regular rhythm Heart sounds: S1 normal heart sound present and S2 normal heart sound present Skin General skin exam: turgor normal Neuro General: patient oriented x3, tone normal and moves all extremities Extrem Right lower extremity: no edema Left lower extremity: no edema Coding Level of Care Code New Pt Level 5 (11792) Complex EM visit Add On G2211 Diagnoses Hospital discharge follow-up Z09 Chronic hypoxic respiratory failure J96.11 Nicotine dependence, cigarettes, uncomplicated F17.210 Failure to thrive in adult R62.7 Bipolar disorder, in partial remission, most recent episode depressed F31.75 Active/Remission status: in partial remission Most recent bipolar episode type: depressed Uncomplicated alcohol dependence F10.20 Substance use status: uncomplicated Moderate episode of recurrent major depressive disorder F33.1 Active/Remission status: currently active Major depression episode severity: moderate Moderate protein-calorie malnutrition E44.0 Malnutrition type: protein-calorie malnutrition Protein-calorie malnutrition severity: moderate Additional Codes STEVE-7 Assessment Billing - STEVE-7 Assessment Tool: STEVE-7 Assessment 83068 ([id number]) Assessment & Plan Assessment & Plan (1) Hospital discharge follow-up: Code(s): Z09 - Encounter for follow-up examination after completed treatment for conditions other than malignant neoplasm Category: Medical (2) Chronic hypoxic respiratory failure: Code(s): J96.11 - Chronic respiratory failure with hypoxia Category: Medical (3) Nicotine dependence, cigarettes, uncomplicated: Comment: (Current smoker - onset 13yo, 1ppd x 45yrs, now1/2ppd - 40pyh) Code(s): F17.210 - Nicotine dependence, cigarettes, uncomplicated Category: Medical (4) Failure to thrive in adult: Code(s): R62.7 - Adult failure to thrive Category: Medical (5) Bipolar disorder: Code(s): F31.9 - Bipolar disorder, unspecified Category: Medical Qualifiers: Active/Remission status: in partial remission Most recent bipolar episode type: depressed Qualified Code(s): F31.75 - Bipolar disorder, in partial remission, most recent episode depressed (6) EtOH dependence: Code(s): F10.20 - Alcohol dependence, uncomplicated Category: Medical Qualifiers: Substance use status: uncomplicated Qualified Code(s): F10.20 - Alcohol dependence, uncomplicated (7) Recurrent major depression: Code(s): F33.9 - Major depressive disorder, recurrent, unspecified Category: Medical Qualifiers: Active/Remission status: currently active Major depression episode severity: moderate Qualified Code(s): F33.1 - Major depressive disorder, recurrent, moderate (8) Malnutrition: Code(s): E46 - Unspecified protein-calorie malnutrition Category: Medical Qualifiers: Malnutrition type: protein-calorie malnutrition Protein-calorie malnutrition severity: moderate Qualified Code(s): E44.0 - Moderate protein-calorie malnutrition Plan Date of admission/discharge: Due to admission August 19 2024, date of discharge 08/29/2024 Follow-up from admission [facility] 08/29/2024 This is a 59-year-old female with severe COPD but not on home oxygen, continued to smoke, bipolar disorder, protein calorie malnutrition presented with dyspnea and hypoxia with pulse ox of 70 in walk-in clinic. So sent to emergency room In emergency room she was on BiPAP briefly before admission Dated with IV steroid and bronchodilators by [facility] She gradually improved and was weaned off oxygen Before discharge patient was tested for possible need of oxygen but she did not. She was breathing comfortably on room air Patient also have a long history of depression and is on Seroquel and sertraline currently Came in with her daughter for follow-up appointment She is back to baseline. Patient is upset that she is not allowed to drive. She tells me that she will only be driving locally so that she can visit her mother's burial place She will not be driving on highway. She has an appointment coming up with the neurologist in October I have given a letter to the daughter that she may continue driving locally until seen by the neurologist She also promised that she will stop drinking and smoking. I have given written prescription for the updraft machine and DuoNeb along with Spiriva. Discharge 2/current location: Living with daughter currently Diagnosis/procedure: COPD exacerbation/respiratory failure New/DC medications: Prednisone, patient is done with that Changed medication/dozing: None Pending labs/tests: None How are you feeling? Back to baseline Any pain or discomfort? None Do you have any questions about your condition or discharge instructions? Patient's daughter is concerned that she can not live on her own But patient continued to declined any help Were you able to get her medications filled? Yes Do you have any questions about your medications? No Were you able to schedule your follow-up appointments? Yes If home health was ordered, have they contacted you? None ordered Any outpatient services, if so, are you scheduled? None Are there any additional resources like transportation you might need during your recovery? Not at this time Educational needs/resources: None needed What support system do you have? Daughter lives nearby 50 minutes spent in care of this patient including discussion with family member Medications: Refilled tiotropium bromide (Spiriva with HandiHaler) puncture 1 cap using device; one dose = 2 inhalations 1 cap inhalation DAILY 30 days 30 inhalations 2RF SEVERE COPD [nebulizer with all supplies] As directed 1 ea 0RF J43.1 - Panlobular emphysema ipratropium-albuterol 0.5 mg-3 mg(2.5 mg base)/3 mL 3 mL inhalation Q8H 30 days PRN 90 mL 0RF wheezing J43.1 - Panlobular emphysema
== END 2024-09-05 12:38 | disposition home or self-care (01) ==
PROVIDERS: PCP Internal Medicine; Visit Provider Internal Medicine
DX: J96.11 Chronic respiratory failure with hypoxia (principal); F31.75 Bipolar disorder, in partial remission, most recent episode depressed; F10.20 Alcohol dependence, uncomplicated; E44.0 Moderate protein-calorie malnutrition; Z09 Encounter for follow-up examination after completed treatment for conditions other than malignant neoplasm; F17.210 Nicotine dependence, cigarettes, uncomplicated; R62.7 Adult failure to thrive

== ENCOUNTER → 2024-09-05 11:03 | Outpatient (BNVA) | payer MEDICARE, SELFPAY | PROVIDERS: PCP Internal Medicine; Visit Provider Internal Medicine | DX: Z09 Encounter for follow-up examination after completed treatment for conditions other than malignant neoplasm (principal); J96.11 Chronic respiratory failure with hypoxia; R62.7 Adult failure to thrive; F31.75 Bipolar disorder, in partial remission, most recent episode depressed; F10.20 Alcohol dependence, uncomplicated; E44.0 Moderate protein-calorie malnutrition; F17.210 Nicotine dependence, cigarettes, uncomplicated; Z71.6 Tobacco abuse counseling | CPT/HCPCS: 96127; 99495 ==

== ENCOUNTER 2024-09-08 13:40 | Outpatient (AMB) | payer MEDICARE, SELFPAY ==
--- NOTE | 2024-09-08 13:45 | AM.OFFWIN_ITS ---
Intake Vital Signs 09/08/24 13:46 Weight 87 lb BP 136/80 Blood Pressure Location Lt brachial Position Sitting Pulse 112 H Pulse Source Pulse Oximeter Pulse Oximetry (%) 85 L Oxygen Delivery Method Room Air Intake Visit Reasons: EP-SOB Patient Tobacco Use Status: Current everyday Tobacco user Allergies No Known Allergies Allergy (Verified 09/05/24 11:10) HPI HPI Comments History of Present Illness Details Patient is a 59-year-old female with severe COPD but not on home oxygen, continued to smoke, bipolar disorder, protein calorie malnutrition presented with dyspnea and hypoxia and Psych recently stated she lacks capacity. Initial vitals were notable for a heart rate of 112 beats per minute and oxygen saturation of 87% on room air. Patient stating she feels short of breath. She denies a cough aside from her baseline cough, fevers or chest congestion. She denies any head congestion or sinus pain. Patient states she is still smoking and drinking alcohol. She had a recent admission at [facility] [place] [facility] 08/19/2024-08/29/2024 for COPD exacerbation. Patient states she has not received her nebulizer machine or duonebs that records indicate her PCP had ordered for her after her last admission. We gave her a DuoNeb updraft in the office but she was unable to use it correctly. We called her daughter recommending that she go to the ER for a thorough evaluation, her heart rate fluctuates between the high 90s and low 110s and her oxygen saturation fluctuates between the high 80s and low 90s. [facility] Medical History (Updated 09/08/24 @ 14:22 by Mariana Franklin PA-C) Acute on chronic hypoxic respiratory failure Major neurocognitive disorder Encounter for assessment of decision-making capacity Cognitive impairment Nicotine dependence, cigarettes, uncomplicated Anal itching Vaginal discharge Colonoscopy refused Palpitation Colon cancer screening Non-compliance Anorexia nervosa Underweight Urinary urgency Eczema Mammogram declined Surgical History History of cervical biopsy History of tonsillectomy History of surgery on arm Family History Father Family history unknown Mother COPD (chronic obstructive pulmonary disease) Sister No problems noted. Sister COPD (chronic obstructive pulmonary disease) Social History Household Members: None Housing: Apartment Do you presently have visiting nurse or other home services: No Alcohol intake: current Alcohol intake frequency: 0-2 drinks per day Alcohol type: hard liquor Patient Tobacco Use Status: Current everyday Tobacco user Tobacco use type: Cigarette Cigarettes Per Day: 15 Years Smoked: onset 13yo, 1ppd x 45yrs, now1/2ppd - 40pyh e-Cigarette/Vaping Use: Never Used Second Hand Smoke Exposure: No Substance Use Type: Marijuana service: No Current occupational status: disabled Sexual orientation: Straight/Heterosexual Gender identity: Female Cognitive needs: No Hearing needs: No Vision needs: No Review of Systems Const All systems reviewed & are unremarkable except as noted in HPI and below Physical Exam Vital Signs: Last Vital Signs Pulse 112 H 09/08/24 13:46 BP 136/80 09/08/24 13:46 Pulse Ox 85 L 09/08/24 13:46 Oxygen Delivery Method Room Air 09/08/24 13:46 Const General: cooperative, healthy appearing, comfortable and no acute distress Orientation/consciousness: patient oriented x3 Limitations: no limitations HEENT Head: Yes normal to inspection Ears: hearing grossly normal bilaterally, external ears normal and TM's normal bilaterally General nose exam: Normal external nose present, Normal nares present and No nasal discharge present Face and sinus: Yes normal facial exam and Yes sinuses nontender Mouth: Normal oral and palatal mucosa present and moist mucous membranes Throat: Yes tonsils normal, Yes uvula midline and Yes posterior oropharynx a bnormal (Erythema) Eyes General: appearance normal, both eyes and all related structures Neck Neck: Yes normal visual inspection Resp Effort & Inspection: normal respiratory effort, able to speak in complete sentences, Actively coughing, no respiratory distress, not tachypneic, no tripod positioning and no use of accessory muscles Auscultation: diminished lung sounds diffuse Cardio Rate: regular rate Rhythm: regular rhythm Heart sounds: normal S1 and S2 Skin General skin exam: no rashes or lesions noted Neuro General: patient oriented x3 Extrem General: Yes normal to inspection and Yes no clubbing, cyanosis or edema Assessment & Plan Assessment & Plan (1) Acute on chronic hypoxic respiratory failure: Code(s): J96.21 - Acute and chronic respiratory failure with hypoxia Plan: Patient consistently tachycardic in the low 100s and hypoxic to 87%, short of breath with wet cough and very dim lung sounds. Patient was unable to properly use the DuoNeb nebulizer in the office. We will have Dr. Beal's medical transcription supervisor work on following up with the nebulizer machine, coordinating with the daughter so patient receives it. Patient lacks capacity per hospitalist note from her most recent admission. We called her daughter and recommended she go to the hospital. Daughter agreed the patient should be sent to the emergency department via ambulance. Needs workup to rule out sepsis, PNA, PE, COPD exac. Called [facility] ED with expect. (2) Tachycardia: Code(s): R00.0 - Tachycardia, unspecified Plan: See above Coding Level of Care Code Est Pt Level 5 (99789) Diagnoses Acute on chronic hypoxic respiratory failure J96.21 Tachycardia R00.0
[2024-09-08 13:46] VITALS: BP 136/80; PULSE 112; O2SAT 85
== END 2024-09-08 14:34 | disposition home or self-care (01) ==
PROVIDERS: PCP Internal Medicine; Visit Provider Physician Assistant
DX: J96.21 Acute and chronic respiratory failure with hypoxia (principal); R00.0 Tachycardia, unspecified

== ENCOUNTER → 2024-09-08 13:40 | Outpatient (BNVA) | payer MEDICARE, SELFPAY | PROVIDERS: PCP Internal Medicine; Visit Provider Physician Assistant | DX: J96.21 Acute and chronic respiratory failure with hypoxia (principal); R00.0 Tachycardia, unspecified | CPT/HCPCS: 99212 ==

== ENCOUNTER 2024-09-10 10:36 | Outpatient (REF) | payer MEDICARE, SELFPAY ==
[2024-09-10 12:02] LABS: Venous Blood Gas Refer to POC result
[2024-09-10 12:07] LABS: VBG Base Excess 10.3 mmol/L; VBG HCO3 38 mmol/L (22-26); VBG pCO2 64 mmHg; VBG pH 7.37 (7.32-7.43); VBG pO2 35 mmHg
== END 2024-09-10 10:37 | disposition home or self-care (01) ==
LOC: HO.LAB 10:36
PROVIDERS: PCP Internal Medicine; Visit Provider Internal Medicine
DX: J44.1 Chronic obstructive pulmonary disease with (acute) exacerbation (principal); J96.11 Chronic respiratory failure with hypoxia; F17.210 Nicotine dependence, cigarettes, uncomplicated; F31.75 Bipolar disorder, in partial remission, most recent episode depressed
CPT/HCPCS: 36415; 82803; 99212

== ENCOUNTER 2024-09-10 10:36 | Outpatient (AMB) | payer MEDICARE, SELFPAY ==
--- NOTE | 2024-09-10 10:44 | A.OFFVIS_ITS ---
Vital Signs 09/10/24 10:45 Height 5 ft 4 in Weight 85 lb 15.684 oz BMI 14.8 BP 120/80 Pulse 87 Pulse Source Pulse Oximeter Pulse Oximetry (%) 87 L Oxygen Delivery Method Room Air Intake Visit Reasons: ER follow/ O2 eval Intake Note: pt is here for follow up of low oxygen and states she does have short of breath with any exertion. Assessment Rn Required: No Allergies No Known Allergies Allergy (Verified 09/10/24 11:24) Medication List - Last Reconciled 09/10/24 by Chacho Erwin MD albuterol sulfate 90 mcg/actuation 2 puffs inhalation Q4-6H PRN 30 days donepezil 5 mg PO BEDTIME fluticasone propion-salmeterol 250-50 mcg/dose (Wixela Inhub) 1 inh inhalation BID 30 days ipratropium-albuterol 0.5 mg-3 mg(2.5 mg base)/3 mL 3 mL inhalation Q8H PRN 30 days megestrol 40 mg PO DAILY 90 days [nebulizer with all supplies As directed] quetiapine (Seroquel) 25 mg PO BEDTIME 90 days sertraline 50 mg PO DAILY tiotropium bromide (Spiriva with HandiHaler) 1 cap inhalation DAILY 30 days valacyclovir 500 mg PO ONCE PRN Do you need a note to return to daycare/school/sports/work: No HPI HPI ER follow/ O2 eval: Details: 59 years old female, with bipolar disorder, cognitive impairment, but lives alone, supervised by her daughter, lifelong smoker, has advanced chronic obstructive pulmonary disease . Recently admitted to the hospital with the acute exacerbation of COPD. There was no evidence of pneumonia. O2 sats were low but at the same time she was found to be CO2 retainer. Treated with steroids and oxygen supplements, improved and at the time of discharge did not qualify for oxygen. Also the concern was that she continued to smoke even in the hospital room, and if O2 was prescribed at home she is going to smoke while using the O2. Her daughter wants her to go to an assisted living which she could be monitored, but she does not want to. Today she walked in O2 sat was in mid 80s, on room air . She does have some degree of Raynaud's disease . Her fingers of both hands were very cold. When she warmed up her fingers, the O2 sat was up to 92%. I discussed about doing 6 minutes walk test to see if she qualifies for O2. However her daughter feels that she will continue to smokes cigarettes while keeping the oxygen on. She is concerned about her safety. Characteristics of symptom or complaint: Has [facility] Medical History Acute on chronic hypoxic respiratory failure Major neurocognitive disorder Encounter for assessment of decision-making capacity Cognitive impairment Nicotine dependence, cigarettes, uncomplicated Anal itching Vaginal discharge Colonoscopy refused Palpitation Colon cancer screening Non-compliance Anorexia nervosa Underweight Urinary urgency Eczema Mammogram declined Surgical History History of cervical biopsy History of tonsillectomy History of surgery on arm Family History Father Family history unknown Mother COPD (chronic obstructive pulmonary disease) Sister No problems noted. Sister COPD (chronic obstructive pulmonary disease) Social History Household Members: None Housing: Apartment Do you presently have visiting nurse or other home services: No Alcohol intake: current Alcohol intake frequency: 0-2 drinks per day Alcohol type: hard liquor Patient Tobacco Use Status: Current everyday Tobacco user Tobacco use type: Cigarette Cigarettes Per Day: 10 Years Smoked: onset 13yo, 1ppd x 45yrs, now1/2ppd - 40pyh e-Cigarette/Vaping Use: Never Used Second Hand Smoke Exposure: No Substance Use Type: Marijuana service: No Current occupational status: disabled Sexual orientation: Straight/Heterosexual Gender identity: Female Cognitive needs: No Hearing needs: No Vision needs: No Review of Systems Const All systems reviewed & are unremarkable except as noted in HPI and below Eyes Reports no additional complaints ENT Reports nasal congestion (OFF AND ON) Card Denies irregular heart rhythm and Denies leg edema Resp Reports as per HPI GI Reports other (LACK OF APPETITE, AND POOR DIETARY INTAKE.) Reports nocturia Musc Reports other (GENERAL MUSCLE WEAKNESS) Skin/Breast Reports system reviewed and no additional complaints, except as documented Neuro Reports no additional complaints Psych Reports anxiety and Reports depression Physical Exam Vital Signs: Last Vital Signs Pulse 87 09/10/24 10:45 BP 120/80 09/10/24 10:45 Pulse Ox 87 L 09/10/24 10:45 Oxygen Delivery Method Room Air 09/10/24 10:45 BMI result Body Mass Index 14.8 PATIENT IS DEFINITELY UNDER NOURISHED, OF A THIN BUILD, CHRONICALLY SICK- LOOKING. Const General: comfortable, no acute distress, alert and awake Orientation/consciousness: patient oriented x3 HEENT Head: Yes normal to inspection General nose exam: No nasal polyps present, No nasal discharge present and Other nasal findings present (ONLY MILD NASAL CONGESTION) Face and sinus: Yes sinuses nontender Mouth: oropharynx normal Throat: Yes posterior oropharynx normal Eyes General: appearance normal, both eyes and all related structures Neck Neck: Yes normal visual inspection, Yes no lymphadenopathy, Yes trachea midline and Yes no JVD Thyroid: Thyroid normal Chest Chest palpation & inspection: normal inspection of the chest, normal palpation of entire chest wall and no tenderness Resp Other: PERCUSSION NOTE IS HYPER-RESONANT, BREATH SOUNDS ARE VERY DISTANT ON BOTH SIDES WITH. PROLONGED EXPIRATORY PHASE NO WHEEZES RHONCHI OR CREPITATIONS. ARE HEARD Cardio Palpation: normal PMI Rate: regular rate Rhythm: regular rhythm Heart sounds: no gallops and no murmurs Peripheral pulses: Peripheral pulses 2+ throughout GI Palpation (GI): Soft to palpation, nontender, No hepatosplenomegaly present and no masses Auscultation: normal bowel sounds Back/Spine/Pelvis Thoracic/Lumbar Spine: thoracic and lumbar spine normal to inspection Skin General skin exam: no rashes or lesions noted Neuro General: patient oriented x3 and no focal motor deficits Cranial nerves: Yes CN's II-XII intact bilaterally Extrem General: Yes normal to inspection, Yes no clubbing, cyanosis or edema and Yes no calf tenderness Psych Speech and movement: Normal speech and movement present Results Reviewed Results Reviewed: COURSE IN THE HOSPITAL WAS REVIEWED Assessment & Plan Assessment & Plan (1) Chronic hypoxic respiratory failure: Comment: Patient seems to have chronic hypoxemic failure as well as hypercapnia. She has picture of compensated respiratory failure. Code(s): J96.11 - Chronic respiratory failure with hypoxia Category: Medical Plan: I instructed her to do deep breathing exercises with pursed lip breathing technique. She understood well . Told her to do deep breathing exercises Q 1 hour while awake Venous blood gas study to be done today. She is to be rechecked in 2 weeks . If her oxygenation has not improved then definitely consider starting her on oxygen. (2) COPD exacerbation: Comment: She was treated for an acute exacerbation of COPD. At present seems to be at baseline. There is no evidence of any respiratory infection. Code(s): J44.1 - Chronic obstructive pulmonary disease with (acute) exacerbation Category: Medical Plan: Advised to continue using Wixela 250-51 inhalation b.i.d. Spiriva HandiHaler 1 inhalation daily Ipratropium-albuterol solution in the nebulizer Q 6 hours p.r.n. (3) Nicotine dependence, cigarettes, uncomplicated: Comment: (Current smoker - onset 13yo, 1ppd x 45yrs, now1/2ppd - 40pyh), claims that she has cut down the cigarettes to 10 per day. Code(s): F17.210 - Nicotine dependence, cigarettes, uncomplicated Category: Medical Plan: Discussed with her at length, advised that she has to quit completely other ann her respiratory status is getting worse, and she may end up back in the hospital then in a rehab place. (4) Bipolar disorder: Comment: Patient has bipolar disorder with significant anxiety and also has some cognitive impairment. Code(s): F31.9 - Bipolar disorder, unspecified Category: Medical Qualifiers: Active/Remission status: in partial remission Most recent bipolar episode type: depressed Qualified Code(s): F31.75 - Bipolar disorder, in partial remission, most recent episode depressed Plan: Continue the regular medical regimen including Seroquel, sertraline, Donepezil . Orders: Orders Venous Blood Gas Today J44.1 - Chronic obstructive pulmonary disease with (acute) exacerbation, J96.11 - Chronic respiratory failure with hypoxia Coding Level of Care Code Est Pt Level 4 (04888) Diagnoses Chronic hypoxic respiratory failure J96.11 COPD exacerbation J44.1 Nicotine dependence, cigarettes, uncomplicated F17.210 Bipolar disorder, in partial remission, most recent episode depressed F31.75 Active/Remission status: in partial remission Most recent bipolar episode type: depressed
[2024-09-10 10:45] VITALS: BP 120/80; PULSE 87; O2SAT 87; BMI 14.8
== END 2024-09-10 11:23 | disposition home or self-care (01) ==
PROVIDERS: PCP Internal Medicine; Visit Provider Internal Medicine
DX: J96.11 Chronic respiratory failure with hypoxia (principal); J44.1 Chronic obstructive pulmonary disease with (acute) exacerbation; F17.210 Nicotine dependence, cigarettes, uncomplicated; F31.75 Bipolar disorder, in partial remission, most recent episode depressed
CPT/HCPCS: 99214

== ENCOUNTER 2024-09-19 13:30 | Outpatient (AMB) | payer MEDICARE, SELFPAY ==
[2024-09-19 13:37] VITALS: BP 120/74; PULSE 106; O2SAT 86; BMI 14.9
--- NOTE | 2024-09-19 13:37 | A.OFFPC_ITS ---
Vital Signs 09/19/24 13:37 09/19/24 14:12 Height 5 ft 4 in Weight 87 lb BMI 14.9 BP 120/74 Blood Pressure Location Lt brachial Position Sitting Pulse 106 H Pulse Source Pulse Oximeter Pulse Oximetry (%) 86 L 91 L Oxygen Delivery Method Room Air Intake Visit Reasons: f/u sob, not to drive letter Allergies No Known Allergies Allergy (Verified 09/19/24 13:37) Medication List - Last Reconciled 09/19/24 by Vito Beal MD acetazolamide ER 500 mg PO DAILY 30 days albuterol sulfate 90 mcg/actuation 2 puffs inhalation Q4-6H PRN 30 days donepezil 5 mg PO BEDTIME fluticasone propion-salmeterol 250-50 mcg/dose (Wixela Inhub) 1 inh inhalation BID 30 days ipratropium-albuterol 0.5 mg-3 mg(2.5 mg base)/3 mL 3 mL inhalation Q8H PRN 30 days megestrol 40 mg PO DAILY 90 days [nebulizer with all supplies As directed] quetiapine (Seroquel) 25 mg PO BEDTIME 90 days sertraline 50 mg PO DAILY tiotropium bromide (Spiriva with HandiHaler) 1 cap inhalation DAILY 30 days valacyclovir 500 mg PO ONCE PRN Tobacco use date assessed: 09/19/24 Dental Screening Dental Screen Date: 09/19/24 Did you have a dental visit in the last 12 months?: No Did you have a dental problem in the last 6 months where you did not have access to dental care?: No Was dental information given to patient?: No HPI f/u sob, not to drive letter HPI Details Chief Complaint Difficulty breathing and concerns about low oxygen levels. Assessment and Plan 59-year-old female with a history of Chr onic Obstructive Pulmonary Disease (COPD) and tobacco use disorder presenting for management of chronic respiratory conditions and associated memory impairment. The patient exhibits chronic respiratory failure with desaturation episodes, notably experiencing oxygen levels in the 70s during exertion. Despite recommendations to cease tobacco use, the patient continues to smoke, exacerbating the respiratory issues. Previous co nsultations with Dr. Erwin and neurology involvement were noted, specifically regarding smoking cessation and driving restrictions due to memory impairment. Oxygen therapy remains constrained due to continued smoking, further complicating her condition's management. There is a repetitive cycle of emergency calls due to severe hypoxia moments, which the patient often refuses hospitalization. 1. Memory Impairment The current condition likely contributes to the patient's sporadic decision- making processes, particularly regarding emergency care response. Medication prescribed for memory was halted due to potential interactions with alcohol use, likely to exacerbate hallucinations. Noted that further discussion with neurology regarding the progression and management of memory impairment is needed. 2. Chronic Respiratory Failure Chronic respiratory failure is noted, with recurrent low oxygen saturation levels necessitating emergency interventions. The management plan includes consideration of oxygen therapy if smoking cessation occurs and reinforcement of the need for continuous monitoring of oxygen saturation levels at home. Addressed the needing to formulate a plan in case of further deterioration and to contemplate advanced care directives in consultation with healthcare proxy. 3. Chronic Obstructive Pulmonary Disease Copd The patient's COPD management plan included the advice to improve smoking cessation efforts, as continued tobacco use exacerbates the pulmonary impairment. Education regarding the urgency of adequate oxygen therapy was provided, although limited by the patient's smoking habit. Regular use of a nebulizer every four hours is crucial to reduce bronchospasms and maintain airway patency. 4. Alcohol Use Disorder Alcohol use, combined with memory medication, prompted concerns about hallucinations and cognitive worsening. Reinforced the need for careful management of alcohol intake alongside medication assessments for altered cognition. 5. Tobacco Use Disorder Continued emphasis on smoking cessation was discussed. Highlighted the direct negative impact on respiratory and cognitive status. The patient acknowledges smoking less but remains reliant on cigarettes. Discussed behavioral interventions and reiterated the importance of quitting completely due to the chronic respiratory implications. Problem List - Chronic Obstructive Pulmonary Disease (COPD) - Tobacco Use Disorder - Memory Impairment - Alcohol Use Disorder - Chronic Respiratory Failure Patient Instructions - Continue using the nebulizer every fou r hours as instructed. - Cease smoking entirely to qualify for oxygen therapy. - Limit alcohol consumption, considering previous discussions about medication interactions. - Engage with follow-up neurology appoin tments for memory assessment. - Discuss potential advanced care planni ng with family members to ensure appropriate emergency response and care preferences. - Place a visible note at home if refusi ng hospital admission, indicating alternative emergency instructions. [facility] Medical History Acute on chronic hypoxic respiratory failure Major neurocognitive disorder Encounter for assessment of decision-making capacity Cognitive impairment Nicotine dependence, cigarettes, uncomplicated Anal itching Vaginal discharge Colonoscopy refused Palpitation Colon cancer screening Non-compliance Anorexia nervosa Underweight Urinary urgency Eczema Mammogram declined Surgical History History of cervical biopsy History of tonsillectomy History of surgery on arm Family History Father Family history unknown Mother COPD (chronic obstructive pulmonary disease) Sister No problems noted. Sister COPD (chronic obstructive pulmonary disease) Social History Household Members: None Housing: Apartment Do you presently have visiting nurse or other home services: No Alcohol intake: current Alcohol intake frequency: 0-2 drinks per day Alcohol type: hard liquor Patient Tobacco Use Status: Current everyday Tobacco user Tobacco use type: Cigarette Cigarettes Per Day: 10 Years Smoked: onset 13yo, 1ppd x 45yrs, now1/2ppd - 40pyh e-Cigarette/Vaping Use: Never Used Second Hand Smoke Exposure: No Substance Use Type: Marijuana service: No Current occupational status: disabled Sexual orientation: Straight/Heterosexual Gender identity: Female Cognitive needs: No Hearing needs: No Vision needs: No Questionnaire Thrive Questionnaire Date Thrive assessed: 09/05/24 Currently or been in a relationship where the following occur: No concerns reported THRIVE Score: 0 AUDIT C Alcohol Use Questionnaire (AUDIT-C) 1. How often do you have a drink containing alcohol?: 4 or more times a week 2. How many drinks containing alcohol do you have on a typical day when you are drinking?: 1 or 2 3. How often do you have six or more drinks on one occasion?: Never Total Score: 4 Score Reviewed/Action Taken: Yes STEVE-7 AMB Questionnaire STEVE-7 Date STEVE - 7 assessed: 09/05/24 Source: Developed by Drs. Ganga Bauer, Brooklyn Benedict, Dionte Puente and colleagues, with an educational albert from [employer]. Review of Systems Const Denies chills and Denies fever(s) ENT Denies epistaxis and Denies nasal discharge Card Denies chest pain Resp Denies chest congestion and Denies hemoptysis GI Denies diarrhea and Denies nausea Skin/Breast Denies rash Neuro Reports no additional complaints Psych Reports no additional complaints Endo Reports no additional complaints Physical exam (Primary Care) Vital Signs: Last Vital Signs Pulse 106 H 09/19/24 13:37 BP 120/74 09/19/24 13:37 Pulse Ox 91 L 09/19/24 14:12 Oxygen Delivery Method Room Air 09/19/24 13:37 BMI result Body Mass Index 14.9 Tobacco/Smoking Status: Tobacco use Status Tobacco use date assessed 09/19/24 09/19/24 13:39 Patient Tobacco Use Status Current everyday Tobacco 09/19/24 13:39 Tobacco use type Cigarette 09/19/24 13:39 e-Cigarette/Vaping Use Never Used 09/19/24 13:39 Thrive Assessment: Date of Thrive Assessment Date Thrive assessed 09/05/24 09/19/24 13:39 Currently or been in a relationship where the following occur: No concerns reported Const General: cooperative Orientation/consciousness: patient oriented x3 HENMT Head: Yes normocephalic Eyes General: appearance normal, both eyes and all related structures Neck Neck: Yes supple Resp Other: Minimal airflow Effort & Inspection: no cough and no stridor Cardio Rhythm: regular rhythm Heart sounds: S1 normal heart sound present and S2 normal heart sound present Skin General skin exam: turgor normal Neuro General: patient oriented x3, tone normal and moves all extremities Extrem Right lower extremity: no edema Left lower extremity: no edema Coding Level of Care Code Est Pt Level 5 (77054) Diagnoses Chronic hypoxic respiratory failure J96.11 Nicotine dependence, cigarettes, uncomplicated F17.210 Failure to thrive in adult R62.7 Bipolar disorder, in partial remission, most recent episode depressed F31.75 Active/Remission status: in partial remission Most recent bipolar episode type: depressed Uncomplicated alcohol dependence F10.20 Substance use status: uncomplicated Moderate episode of recurrent major depressive disorder F33.1 Active/Remission status: currently active Major depression episode severity: moderate Moderate protein-calorie malnutrition E44.0 Malnutrition type: protein-calorie malnutrition Protein-calorie malnutrition severity: moderate Underweight R63.6 Medical non-compliance Z91.199 Assessment & Plan Assessment & Plan (1) Chronic hypoxic respiratory failure: Comment: Patient seems to have chronic hypoxemic failure as well as hypercapnia. She has picture of compensated respiratory failure. Code(s): J96.11 - Chronic respiratory failure with hypoxia Category: Medical (2) Nicotine dependence, cigarettes, uncomplicated: Comment: (Current smoker - onset 13yo, 1ppd x 45yrs, now1/2ppd - 40pyh), claims that she has cut down the cigarettes to 10 per day. Code(s): F17.210 - Nicotine dependence, cigarettes, uncomplicated Category: Medical (3) Failure to thrive in adult: Code(s): R62.7 - Adult failure to thrive Category: Medical (4) Bipolar disorder: Comment: Patient has bipolar disorder with significant anxiety and also has some cognitive impairment. Code(s): F31.9 - Bipolar disorder, unspecified Category: Medical Qualifiers: Active/Remission status: in partial remission Most recent bipolar episode type: depressed Qualified Code(s): F31.75 - Bipolar disorder, in partial remission, most recent episode depressed (5) EtOH dependence: Code(s): F10.20 - Alcohol dependence, uncomplicated Category: Medical Qualifiers: Substance use status: uncomplicated Qualified Code(s): F10.20 - Alcohol dependence, uncomplicated (6) Recurrent major depression: Code(s): F33.9 - Major depressive disorder, recurrent, unspecified Category: Medical Qualifiers: Active/Remission status: currently active Major depression episode severity: moderate Qualified Code(s): F33.1 - Major depressive disorder, recurrent, moderate (7) Malnutrition: Code(s): E46 - Unspecified protein-calorie malnutrition Category: Medical Qualifiers: Malnutrition type: protein-calorie malnutrition Protein-calorie malnutrition severity: moderate Qualified Code(s): E44.0 - Moderate protein- calorie malnutrition (8) Underweight: Comment: (BMI: 14.0 she remains malnourished and underweight. Code(s): R63.6 - Underweight Category: Medical (9) Medical non-compliance: Code(s): Z91.199 - Patient's noncompliance with other medical treatment and regimen due to unspecified reason Category: Medical Plan Chief Complaint Difficulty breathing and concerns about low oxygen levels. Assessment and Plan 59-year-old female with a history of Chronic Obstructive Pulmonary Disease (COPD) and tobacco use disorder presenting for management of chronic respiratory conditions and associated memory impairment. The patient exhibits chronic respiratory failure with desaturation episodes, notably experiencing oxygen levels in the 70s during exertion. Despite recommendations to cease tobacco use, the patient continues to smoke, exacerbating the respiratory issues. Previous consultations with Dr. Erwin and neurology involvement were noted, specifically regarding smoking cessation and driving restrictions due to memory impairment. Oxygen therapy remains constrained due to continued smoking, further complicating her condition's management. There is a repetitive cycle of emergency calls due to severe hypoxia moments, which the patient often refuses hospitalization. 1. Memory Impairment The current condition likely contributes to the patient's sporadic decision- making processes, particularly regarding emergency care response. Medication prescribed for memory was halted due to potential interactions with alcohol use, likely to exacerbate hallucinations. Noted that further discussion with neurology regarding the progression and management of memory impairment is needed. 2. Chronic Respiratory Failure Chronic respiratory failure is noted, with recurrent low oxygen saturation levels necessitating emergency interventions. The management plan includes consideration of oxygen therapy if smoking cessation occurs and reinforcement of the need for continuous monitoring of oxygen saturation levels at home. Addressed the needing to formulate a plan in case of further deterioration and to contemplate advanced care directives in consultation with healthcare proxy. 3. Chronic Obstructive Pulmonary Disease Copd The patient's COPD management plan included the advice to improve smoking cessation efforts, as continued tobacco use exacerbates the pulmonary impairment. Education regarding the urgency of adequate oxygen therapy was provided, although limited by the patient's smoking habit. Regular use of a nebu lizer every four hours is crucial to reduce bronchospasms and maintain airway patency. 4. Alcohol Use Disorder Alcohol use, combined with memory medication, prompted concerns about hallucinations and cognitive worsening. Reinforced the need for careful management of alcohol intake alongside medication assessments for altered cognition. 5. Tobacco Use Disorder Continued emphasis on smoking cessation was discussed. Highlighted the direct negative impact on respiratory and cognitive status. The patient acknowledges smoking less but remains reliant on cigarettes. Discussed behavioral interventions and reiterated the importance of quitting completely due to the chronic respiratory implications. Problem List - Chronic Obstructive Pulmonary Disease (COPD) - Tobacco Use Disorder - Memory Impairment - Alcohol Use Disorder - Chronic Respiratory Failure Patient Instructions - Continue using the nebulizer every four hours as instructed. - Cease smoking entirely to qualify for oxygen therapy. - Limit alcohol consumption, considering previous discussions about medication interactions. - Engage with follow-up neurology appointments for memory assessment. - Discuss potential advanced care planning with family members to ensure appropriate emergency response and care preferences. - Place a visible note at home if refusing hospital admission, indicating alternative emergency instructions. 45 minutes spent in care of this patient most of the time spent [id number] with patient and her daughter
[2024-09-19 14:12] VITALS: O2SAT 91
== END 2024-09-19 14:41 | disposition home or self-care (01) ==
LOC: HO.HMCC 13:30
PROVIDERS: PCP Internal Medicine; Visit Provider Internal Medicine
DX: J96.11 Chronic respiratory failure with hypoxia (principal); F31.75 Bipolar disorder, in partial remission, most recent episode depressed; F10.20 Alcohol dependence, uncomplicated; E44.0 Moderate protein-calorie malnutrition; F17.210 Nicotine dependence, cigarettes, uncomplicated; R62.7 Adult failure to thrive; R63.6 Underweight; Z91.199 Patient's noncompliance with other medical treatment and regimen due to unspecified reason

== ENCOUNTER → 2024-09-19 13:30 | Outpatient (BNVA) | payer MEDICARE, SELFPAY | PROVIDERS: PCP Internal Medicine; Visit Provider Internal Medicine | DX: J96.11 Chronic respiratory failure with hypoxia (principal); R62.7 Adult failure to thrive; F10.20 Alcohol dependence, uncomplicated; F33.1 Major depressive disorder, recurrent, moderate; F17.210 Nicotine dependence, cigarettes, uncomplicated; Z71.6 Tobacco abuse counseling | CPT/HCPCS: 99212 ==

== ENCOUNTER 2024-09-23 15:06 | Outpatient (AMB) | payer MEDICARE, SELFPAY ==
[2024-09-23 15:13] VITALS: BP 122/64; PULSE 112; O2SAT 85; BMI 15.1
--- NOTE | 2024-09-23 15:13 | MHC.OFFVIS ---
Vital Signs 09/23/24 15:13 Height 5 ft 4 in Weight 88 lb 2.958 oz BMI 15.1 BP 122/64 Blood Pressure Location Lt brachial Position Sitting Pulse 112 H Pulse Source Pulse Oximeter Pulse Oximetry (%) 85 L Oxygen Delivery Method Room Air Intake Visit Reasons: Hypoxia Intake Note: pt is here for follow up and states she is still short of breath Career Coordinator Required: No Allergies No Known Allergies Allergy (Verified 09/23/24 15:34) Medication List - Last Reconciled 09/23/24 by Chacho Erwin MD acetazolamide 250 mg PO DAILY albuterol sulfate 90 mcg/actuation 2 puffs inhalation Q4-6H PRN 30 days donepezil 5 mg PO BEDTIME fluticasone propion-salmeterol 250-50 mcg/dose (Wixela Inhub) 1 inh inhalation BID 30 days ipratropium-albuterol 0.5 mg-3 mg(2.5 mg base)/3 mL 3 mL inhalation Q8H PRN 30 days megestrol 40 mg PO DAILY 90 days [nebulizer with all supplies As directed] quetiapine (Seroquel) 25 mg PO BEDTIME 90 days sertraline 50 mg PO DAILY tiotropium bromide (Spiriva with HandiHaler) 1 cap inhalation DAILY 30 days valacyclovir 500 mg PO ONCE PRN Do you need a note to return to daycare/school/sports/work: No HPI HPI Hypoxia: Details: 59 YEARS OLD FEMALE, CONTINUED SMOKER, WITH ADVANCED CHRONIC OBSTRUCTIVE PULMONARY DISEASE, HYPOXIC/HYPERCRBIC FAILURE, COMES FOR FOLLOW-UP AFTER 2WEEKS. SHE CLAIMS THAT SHE HAS BEEN DOING BREATHING EXERCISES. SHE STILL SMOKES 10 CIGARETTES A DAY. SHE IS GETTING MORE SHORT OF BREATH TO THE POINT THAT SHE IS NOT ABLE TO AMBULATE AND THUS SHE COMES TO THE OFFICE VIA WHEELCHAIR. [facility] Medical History Acute on chronic hypoxic respiratory failure Major neurocognitive disorder Encounter for assessment of decision-making capacity Cognitive impairment Nicotine dependence, cigarettes, uncomplicated Anal itching Vaginal discharge Colonoscopy refused Palpitation Colon cancer screening Non-compliance Anorexia nervosa Underweight Urinary urgency Eczema Mammogram declined Surgical History History of cervical biopsy History of tonsillectomy History of surgery on arm Family History Father Family history unknown Mother COPD (chronic obstructive pulmonary disease) Sister No problems noted. Sister COPD (chronic obstructive pulmonary disease) Social History Household Members: None Housing: Apartment Do you presently have visiting nurse or other home services: No Alcohol intake: current Alcohol intake frequency: 0-2 drinks per day Alcohol type: hard liquor Patient Tobacco Use Status: Current everyday Tobacco user Tobacco use type: Cigarette Cigarettes Per Day: 10 Years Smoked: onset 13yo, 1ppd x 45yrs, now1/2ppd - 40pyh e-Cigarette/Vaping Use: Never Used Second Hand Smoke Exposure: No Substance Use Type: Marijuana service: No Current occupational status: disabled Sexual orientation: Straight/Heterosexual Gender identity: Female Cognitive needs: No Hearing needs: No Vision needs: No Review of Systems Const All systems reviewed & are unremarkable except as noted in HPI and below Eyes Reports no additional complaints ENT Reports nasal congestion (OFF AND ON) Card Denies irregular heart rhythm and Denies leg edema Resp Reports as per HPI GI Reports other (LACK OF APPETITE, AND POOR DIETARY INTAKE.) Reports nocturia Musc Reports other (GENERAL MUSCLE WEAKNESS) Skin/Breast Reports system reviewed and no additional complaints, except as documented Neuro Reports no additional complaints Psych Reports anxiety and Reports depression Physical Exam Vital Signs: Last Vital Signs Pulse 112 H 09/23/24 15:13 BP 122/64 09/23/24 15:13 Pulse Ox 85 L 09/23/24 15:13 Oxygen Delivery Method Room Air 09/23/24 15:13 BMI result Body Mass Index 15.1 PATIENT IS DEFINITELY UNDER NOURISHED, OF A THIN BUILD, CHRONICALLY SICK-LOOKING. Const General: comfortable, no acute distress, alert and awake Orientation/consciousness: patient oriented x3 HEENT Head: Yes normal to inspection General nose exam: No nasal polyps present, No nasal discharge present and Other nasal findings present (ONLY MILD NASAL CONGESTION) Face and sinus: Yes sinuses nontender Mouth: oropharynx normal Throat: Yes posterior oropharynx normal Eyes General: appearance normal, both eyes and all related structures Neck Neck: Yes normal visual inspection, Yes no lymphadenopathy, Yes trachea midline and Yes no JVD Thyroid: Thyroid normal Chest Chest palpation & inspection: normal inspection of the chest, normal palpation of entire chest wall and no tenderness Resp Other: PERCUSSION NOTE IS HYPER-RESONANT, BREATH SOUNDS ARE VERY DISTANT ON BOTH SIDES WITH. PROLONGED EXPIRATORY PHASE NO WHEEZES RHONCHI OR CREPITATIONS. ARE HEARD Cardio Palpation: normal PMI Rate: regular rate Rhythm: regular rhythm Heart sounds: no gallops and no murmurs Peripheral pulses: Peripheral pulses 2+ throughout GI Palpation (GI): Soft to palpation, nontender, No hepatosplenomegaly present and no masses Auscultation: normal bowel sounds Back/Spine/Pelvis Thoracic/Lumbar Spine: thoracic and lumbar spine normal to inspection Skin General skin exam: no rashes or lesions noted Neuro General: patient oriented x3 and no focal motor deficits Cranial nerves: Yes CN's II-XII intact bilaterally Extrem General: Yes normal to inspection, Yes no clubbing, cyanosis or edema and Yes no calf tenderness Psych Mental Status: mental status grossly normal Speech and movement: Normal speech and movement present Results Reviewed Results Reviewed: VENOUS BLOOD GAS ON HER LAST VISIT, PH 7.37, PCO2 64, PO2 35. BICARB 38. STILL GROSSLY ABNORMAL BUT PCO2 LEVEL HAS COME DOWN. SHE HAS PATTERN OF CHRONIC COMPENSATED RESPIRATORY FAILURE. Assessment & Plan Assessment & Plan (1) COPD exacerbation: Comment: She was treated for an acute exacerbation of COPD. At present seems to be at baseline. There is no evidence of any respiratory infection. Code(s): J44.1 - Chronic obstructive pulmonary disease with (acute) exacerbation Category: Medical Plan: CONTINUE FLUTICASONE-SALMETEROL 250-51 INHALATION B.I.D.. SPIRIVA HANDIHALER 1 INHALATION DAILY IPRATROPIUM-ALBUTEROL SOLUTION IN THE NEBULIZER Q 8 HOURS P.R.N. (2) Nicotine dependence, cigarettes, uncomplicated: Comment: (Current smoker - onset 13yo, 1ppd x 45yrs, now1/2ppd - 40pyh), claims that she has cut down the cigarettes to 10 per day. Still smoking 10 cigarettes a day. Code(s): F17.210 - Nicotine dependence, cigarettes, uncomplicated Category: Medical Plan: Again discussed with her, and advised to get rid of the cigarettes, stop completely or at least cut down the cigarettes to 5 day (3) Chronic hypoxic respiratory failure: Comment: Patient seems to have chronic hypoxemic failure as well as hypercapnia. She has picture of compensated respiratory failure. Today when she came in the wheelchair, O2 sat on room air is 85%. She is complaining of increased shortness of breath Started on O2 supplementation at 2 L/minute, O2 sat has come up to 92%. Code(s): J96.11 - Chronic respiratory failure with hypoxia Category: Medical Plan: O2 supply ordered, with stationary concentrator, and also portable cylinders. She is advised to use O2 2 L/minute continuously at night and during the daytime All precautions are explained. She is advised to continue doing pursed lip breathing exercises. Coding Level of Care Code Est Pt Level 3 (57163) Diagnoses COPD exacerbation J44.1 Nicotine dependence, cigarettes, uncomplicated F17.210 Chronic hypoxic respiratory failure J96.11
== END 2024-09-23 15:51 | disposition home or self-care (01) ==
PROVIDERS: PCP Internal Medicine; Visit Provider Internal Medicine
DX: J44.1 Chronic obstructive pulmonary disease with (acute) exacerbation (principal); F17.210 Nicotine dependence, cigarettes, uncomplicated; J96.11 Chronic respiratory failure with hypoxia
CPT/HCPCS: 99213

== ENCOUNTER → 2024-09-23 15:06 | Outpatient (BNVA) | payer MEDICARE, SELFPAY | PROVIDERS: PCP Internal Medicine; Visit Provider Internal Medicine | DX: J44.1 Chronic obstructive pulmonary disease with (acute) exacerbation (principal); J96.11 Chronic respiratory failure with hypoxia; F17.210 Nicotine dependence, cigarettes, uncomplicated; Z99.81 Dependence on supplemental oxygen | CPT/HCPCS: 99212 ==

== ENCOUNTER 2024-10-10 12:57 | Outpatient (REF) | payer MEDICARE, SELFPAY ==
--- OUTSIDE RECORDS SUMMARY | 2024-10-10 13:00 | XMS_ITS | Continuity of Care Document ---
Author Organization [facility] Address [address] [address] Phone Care Team Providers Care Steel Die Press Set Up Operator Name Role Phone Jesus KAUR, Aqib Unavailable Unavailable Advance Directives Directive Yes / No Effective Date File Name No Information Encounters Encounter Description Practice Location Reason(s) For Visit Diagnoses Date Provider Providers Copied on Encounter [facility], [address] [place] [address], [id number], [place] tel:[phone] [place] No Information 4 Jesus Aqib. [address] [place], [place], [id number] , [place]. tel:[phone] Family History Family Member Type Diagnosis Age At Onset No Information Payers Payer name Insurance type Covered green party ID Authoriza tion(s) No Information Social History Type Description Quantity Date Captured Comments Sex Female Smoking Status No Information Chief Complaint And Reason For Visit No Information Reason For Referral Reason For Referral No Information History Of Present Illness Encounter Date Complaint History Of Prese nt Illness No Information Functional Status Date Functional Assessmen t No Information Instructions Date Instruction Additional Infor mation No Information Assessments Type Assessment Date No Information Patient Care Teams Name Effective Dates (start - stop) Status Members No Information
== END 2024-10-10 12:58 | disposition home or self-care (01) ==
LOC: HO.CT 12:57
PROVIDERS: PCP Internal Medicine; Visit Provider Physician Assistant Medical
DX: Z12.2 Encounter for screening for malignant neoplasm of respiratory organs (principal); F17.210 Nicotine dependence, cigarettes, uncomplicated
CPT/HCPCS: 71271

== ENCOUNTER → 2024-10-10 12:59 | Outpatient (BNV) | payer MEDICARE, SELFPAY | PROVIDERS: PCP Internal Medicine; Visit Provider Radiology Diagnostic Radiology | DX: R91.1 Solitary pulmonary nodule (principal); J92.9 Pleural plaque without asbestos; F17.210 Nicotine dependence, cigarettes, uncomplicated | CPT/HCPCS: 71271 ==

== ENCOUNTER 2024-10-15 14:28 | Outpatient (AMB) | payer MEDICARE, SELFPAY ==
--- OUTSIDE RECORDS SUMMARY | 2024-10-15 14:32 | XMS_ITS | Continuity of Care Document ---
Author Organization [facility] Address [address] [address] Phone Care Team Providers Care Solderer Torch Name Role Phone Jesus KAUR, Aqib Unavailable Unavailable Advance Directives Directive Yes / No Effective Date File Name No Information Encounters Encounter Description Practice Location Reason(s) For Visit Diagnoses Date Provider Providers Copied on Encounter [facility], [address] [place] [address], [id number], [place] tel:[phone] [place] No Information 4 Jesus Aqib. [address] [place], [place], [id number] , [place]. tel:[phone] Family History Family Member Type Diagnosis Age At Onset No Information Payers Payer name Insurance type Covered constitution party ID Authoriza tion(s) No Information Social [...]
[2024-10-15 14:42] VITALS: BP 110/70; PULSE 102; O2SAT 94
--- NOTE | 2024-10-15 14:42 | MHC.OFFVIS ---
Vital Signs 10/15/24 14:42 Height 5 ft 4 in BP 110/70 Blood Pressure Location Lt brachial Position Sitting Pulse 102 H Pulse Source Pulse Oximeter Pulse Oximetry (%) 94 Oxygen Delivery Method Nasal Cannula Oxygen Flow Rate 2 Intake Visit Reasons: Hypoxia Intake Note: pt is here for follow up from starting oxygen, her daughter really feels like she needs a good instructions on use of oxygen, It Security Specialist Required: No Allergies No Known Allergies Allergy (Verified 10/15/24 15:34) Medication List - Last Reconciled 10/15/24 by Chacho Erwin MD acetazolamide 250 mg PO DAILY acetazolamide 250 mg PO QID 30 days albuterol sulfate 90 mcg/actuation 2 puffs inhalation Q4-6H PRN 30 days donepezil 5 mg PO BEDTIME fluticasone propion-salmeterol 250-50 mcg/dose (Wixela Inhub) 1 inh inhalation BID 30 days ipratropium-albuterol 0.5 mg-3 mg(2.5 mg base)/3 mL 3 mL inhalation Q8H PRN 30 days megestrol 40 mg PO DAILY 90 days [nebulizer with all supplies As directed] quetiapine (Seroquel) 25 mg PO BEDTIME 90 days sertraline 50 mg PO DAILY tiotropium bromide (Spiriva with HandiHaler) 1 cap inhalation DAILY 30 days valacyclovir 500 mg PO ONCE PRN Do you need a note to return to daycare/school/sports/work: No HPI HPI Hypoxia: Details: THIS 59 YEARS OLD FEMALE COMES FOR FOLLOW-UP . SINCE HER LAST VISIT OVER HERE A FEW WEEKS AGO, SHE CONTINUES TO SMOKE, SAY IS HALF PACK A DAY BUT ACTUALLY MAY BE MORE. SHE DOES NOT USE O2 ALL THE TIMES, EVEN THOUGH SHE CARRIES THE PORTABLE CYLINDER. SHE DOES NOT COMPREHEND ANY INSTRUCTIONS, SHE GETS VERY MED WHEN SHE IS TOLD THAT SHE CAN NOT SMOKE, AND SHE GOT VERY MED ESPECIALLY WHEN I TOLD HER THAT SHE SHOULD NOT DRIVE BECAUSE SHE HAS LACK OF COORDINATION . ACCORDING TO THE DAUGHTER SHE IS DRIVING AROUND GOING TO THE STORES AND BUYING CIGARETTES ON A DAILY BASIS . SHE DOES HAVE THE VISITING NURSES AND PHYSICAL THERAPIST COME TO HER HOUSE, WHO USUALLY COME IN THE MORNING HOURS WHEN SHE IS STILL AT HOME. HER DAUGHTER COMES ABOUT 02:00 O'CLOCK AFTER HER WORK TO HER HOUSE AND MANY TIMES FINDS HER NOT TO BE AT HOME. SHE GOT SOMEWHAT ANNOYED FROM THE INSTRUCTION THAT I WAS TRYING TO GIVE HER, WALKED OUT AND GOT INTO THE CAR, HER PORTABLE CYLINDER WAS EMPTY, THE MOMENT SHE SAT IN THE CAR SHE WAS WITNESSED TO LIGHT UP A CIGARETTE. WHEN I ASKED HER ABOUT THE INHALERS, SHE SHOWED ME ADVAIR DISKUS WELL PROAIR, A FEW MOMENTS LATER SHE JUST PULLED OUT ADVAIR AND USED 1 INHALATION, A RESCUE INHALER. THIS INDICATES THAT SHE IS REALLY CONFUSED ABOUT THE USE OF HER INHALERS WELL. [facility] Medical History Acute on chronic hypoxic respiratory failure Major neurocognitive disorder Encounter for assessment of decision-making capacity Cognitive impairment Nicotine dependence, cigarettes, uncomplicated Anal itching Vaginal discharge Colonoscopy refused Palpitation Colon cancer screening Non-compliance Anorexia nervosa Underweight Urinary urgency Eczema Mammogram declined Surgical History History of cervical biopsy History of tonsillectomy History of surgery on arm Family History Father Family history unknown Mother COPD (chronic obstructive pulmonary disease) Sister No problems noted. Sister COPD (chronic obstructive pulmonary disease) Social History Household Members: None Housing: Apartment Do you presently have visiting nurse or other home services: No Alcohol intake: current Alcohol intake frequency: 0-2 drinks per day Alcohol type: hard liquor Patient Tobacco Use Status: Current everyday Tobacco user Tobacco use type: Cigarette Cigarettes Per Day: 10 Years Smoked: onset 13yo, 1ppd x 45yrs, now1/2ppd - 40pyh e-Cigarette/Vaping Use: Never Used Second Hand Smoke Exposure: No Substance Use Type: Marijuana service: No Current occupational status: disabled Sexual orientation: Straight/Heterosexual Gender identity: Female Cognitive needs: No Hearing needs: No Vision needs: No Review of Systems Const All systems reviewed & are unremarkable except as noted in HPI and below Eyes Reports no additional complaints ENT Reports nasal congestion (OFF AND ON) Card Denies irregular heart rhythm and Denies leg edema Resp Reports as per HPI GI Reports other (LACK OF APPETITE, AND POOR DIETARY INTAKE.) Reports nocturia Musc Reports other (GENERAL MUSCLE WEAKNESS) Skin/Breast Reports system reviewed and no additional complaints, except as documented Neuro Reports no additional complaints Psych Reports anxiety and Reports depression Physical Exam Vital Signs: Last Vital Signs Pulse 102 H 10/15/24 14:42 BP 110/70 10/15/24 14:42 Pulse Ox 94 10/15/24 14:42 Oxygen Delivery Method Nasal Cannula 10/15/24 14:42 Oxygen Flow Rate 2 10/15/24 14:42 PATIENT IS DEFINITELY UNDER NOURISHED, OF A THIN BUILD, CHRONICALLY SICK-LOOKING. Const General: comfortable, no acute distress, alert and awake Orientation/consciousness: patient oriented x3 HEENT Head: Yes normal to inspection General nose exam: No nasal polyps present, No nasal discharge present and Other nasal findings present (ONLY MILD NASAL CONGESTION) Face and sinus: Yes sinuses nontender Mouth: oropharynx normal Throat: Yes posterior oropharynx normal Eyes General: appearance normal, both eyes and all related structures Neck Neck: Yes normal visual inspection, Yes no lymphadenopathy, Yes trachea midline and Yes no JVD Thyroid: Thyroid normal Chest Chest palpation & inspection: normal inspection of the chest, normal palpation of entire chest wall and no tenderness Resp Other: PERCUSSION NOTE IS HYPER-RESONANT, BREATH SOUNDS ARE VERY DISTANT ON BOTH SIDES WITH. PROLONGED EXPIRATORY PHASE NO WHEEZES RHONCHI OR CREPITATIONS. ARE HEARD Cardio Palpation: normal PMI Rate: regular rate Rhythm: regular rhythm Heart sounds: no gallops and no murmurs Peripheral pulses: Peripheral pulses 2+ throughout GI Palpation (GI): Soft to palpation, nontender, No hepatosplenomegaly present and no masses Auscultation: normal bowel sounds Back/Spine/Pelvis Thoracic/Lumbar Spine: thoracic and lumbar spine normal to inspection Skin General skin exam: no rashes or lesions noted Neuro General: patient oriented x3 and no focal motor deficits Cranial nerves: Yes CN's II-XII intact bilaterally Extrem General: Yes normal to inspection, Yes no clubbing, cyanosis or edema and Yes no calf tenderness Psych Mental Status: mental status grossly normal Speech and movement: Normal speech and movement present Assessment & Plan Assessment & Plan (1) Nicotine dependence, cigarettes, uncomplicated: Comment: (Current smoker - onset 13yo, 1ppd x 45yrs, now1/2ppd - 40pyh), claims that she has cut down the cigarettes to 10 per day. Still smoking 10 cigarettes a day. Code(s): F17.210 - Nicotine dependence, cigarettes, uncomplicated Category: Medical Plan: ANY ATTEMPT TO TALK TO HER ABOUT CUTTING DOWN ARE QUITTING SMOKING, IS NOT UNDERSTOOD BY HER. SHOWS HER ANGER ON HEARING THIS INSTRUCTION. (2) COPD (chronic obstructive pulmonary disease): Comment: Patient has advanced chronic obstructive pulmonary disease already, basically it is staying as stable as expected. Code(s): J44.9 - Chronic obstructive pulmonary disease, unspecified Category: Medical Qualifiers: COPD type: emphysema Emphysema type: panlobular Qualified Code(s): J43.1 - Panlobular emphysema Plan: She is supposed to use Advair HFA 250-51 inhalation b.i.d. Use ProAir 2 puffs Q 6 hours p.r.n.. When outdoors She is supposed to use ipratropium-albuterol solution in the nebulizer Q 6-8 hours p.r.n. But as noted above she really does not understand completely about the proper use of inhalers. (3) Chronic hypoxic respiratory failure: Comment: Patient has chronic hypoxemic and hypercapnic respiratory failure. Presence of hypercapnia makes her cognitive impairment worse Last venous blood gas study showed pCO2 64 , down from 81 and 79. She has picture of compensated respiratory failure. She has poor understanding of using O2 properly, She came to the office with empty portable cylinder, When in the car she does smoke cigarettes along with using portable oxygen. THIS INDICATES THAT SHE IS RISK WHEN DRIVING , FOR HERSELF WELL FOR PUBLIC. Code(s): J96.11 - Chronic respiratory failure with hypoxia Category: Medical Plan: I DISCUSSED WITH HER AND OPENED UP THE DISCUSSION THAT SHE SHOULD NOT BE DRIVING HER CAR. .SHE GOT MAD ALSO TOLD HER THAT SHE CAN NOT SMOKE CIGARETTES WHILE SHE IS USING O2, AGAIN SHE GOT MAD. * UNFORTUNATELY SHE JUST CAN NOT COMPREHEND ALL THE INSTRUCTIONS. Plan IN VIEW OF THE CIRCUMSTANCES DOCUMENTED ABOVE, I DO NOT THINK SHE SHOULD BE DRIVING HER CAR. ALSO I DO NOT THINK SHE IS FIT TO LIVE ALONE. POSSIBILITY OF GOING TO DAYCARE CENTER DURING THE DAYTIME SHOULD BE CONSIDERED. AT NIGHTTIME THIS SHOULD BE SOMEBODY STAYING IN THE HOUSE FOR HER SAFETY AND SUPERVISION. UNFORTUNATELY AT THIS TIME SHE IS NOT WILLING TO LISTEN TO ANY SUCH ADVICE. Coding Level of Care Code Est Pt Level 4 (74399) Diagnoses Nicotine dependence, cigarettes, uncomplicated F17.210 Panlobular emphysema J43.1 COPD type: emphysema Emphysema type: panlobular Chronic hypoxic respiratory failure J96.11
== END 2024-10-15 15:19 | disposition home or self-care (01) ==
PROVIDERS: PCP Internal Medicine; Visit Provider Internal Medicine
DX: F17.210 Nicotine dependence, cigarettes, uncomplicated (principal); J43.1 Panlobular emphysema; J96.11 Chronic respiratory failure with hypoxia
CPT/HCPCS: 99214

== ENCOUNTER → 2024-10-15 14:28 | Outpatient (BNVA) | payer MEDICARE, SELFPAY | PROVIDERS: PCP Internal Medicine; Visit Provider Internal Medicine | DX: J43.1 Panlobular emphysema (principal); J96.11 Chronic respiratory failure with hypoxia; F17.210 Nicotine dependence, cigarettes, uncomplicated | CPT/HCPCS: 99212 ==

== ENCOUNTER 2024-10-17 15:18 | Outpatient (AMB) | payer MEDICARE, SELFPAY ==
--- NOTE | 2024-10-17 15:20 | MHC.OFFWIV ---
Intake Vital Signs 10/17/24 15:22 BP 112/68 Blood Pressure Location Lt brachial Position Sitting Pulse 103 H Pulse Source Pulse Oximeter Pulse Oximetry (%) 96 Oxygen Delivery Method Nasal Cannula Intake Visit Reasons: EP SOB Patient Tobacco Use Status: Current everyday Tobacco user Allergies No Known Allergies Allergy (Verified 10/15/24 15:34) HPI HPI Comments History of Present Illness Details Patient is a 59yo F who presents with SOB She is recently on exygen therapy at home with hx of smoking and dementia She is an active smoker Her daughter is her slitter scorer cut off operator She lives alone She has been to the office several times with a low oxygen tank and/or no oxygen She can not remember how to turn them on or how to know if there is oxygen in her take She arrived to the [facility] with an empty oxygen tank in her car and her O2 was 74% on room air Pt states she has chronic cough and SOB She denies fever or chills Denies recent fall No other complaints besides that she wants to go home PFSH Medical History Acute on chronic hypoxic respiratory failure Major neurocognitive disorder Encounter for assessment of decision-making capacity Cognitive impairment Nicotine dependence, cigarettes, uncomplicated Anal itching Vaginal discharge Colonoscopy refused Palpitation Colon cancer screening Non-compliance Anorexia nervosa Underweight Urinary urgency Eczema Mammogram declined Surgical History History of cervical biopsy History of tonsillectomy History of surgery on arm Family History Father Family history unknown Mother COPD (chronic obstructive pulmonary disease) Sister No problems noted. Sister COPD (chronic obstructive pulmonary disease) Social History Household Members: None Housing: Apartment Do you presently have visiting nurse or other home services: No Alcohol intake: current Alcohol intake frequency: 0-2 drinks per day Alcohol type: hard liquor Patient Tobacco Use Status: Current everyday Tobacco user Tobacco use type: Cigarette Cigarettes Per Day: 10 Years Smoked: onset 13yo, 1ppd x 45yrs, now1/2ppd - 40pyh e-Cigarette/Vaping Use: Never Used Second Hand Smoke Exposure: No Substance Use Type: Marijuana service: No Current occupational status: disabled Sexual orientation: Straight/Heterosexual Gender identity: Female Cognitive needs: No Hearing needs: No Vision needs: No Review of Systems Const Denies chills and Denies fever(s) ENT Denies nasal discharge Card Denies chest pain and Reports dyspnea Resp Reports chest congestion, Reports cough and Reports dyspnea Physical Exam Vital Signs: Last Vital Signs Pulse 103 H 10/17/24 15:22 BP 112/68 10/17/24 15:22 Pulse Ox 96 10/17/24 15:22 Oxygen Delivery Method Nasal Cannula 10/17/24 15:22 General: Non-toxic, NAD. Speaking full sentences now with oxygen provided from Skin: Warm dry throughout Eye: EOMI Respiratory: Decreased breath sounds throughout. No stridor Cardiac: Slight tachycardia. MSK: Full ROM extremities. Neurology: Alert. No aphasia or facial droop. Gait without abnormality Psych: Good mood and affect Assessment & Plan Assessment & Plan (1) Dyspnea: Code(s): R06.00 - Dyspnea, unspecified Qualifiers: Dyspnea type: shortness of breath Qualified Code(s): R06.02 - Shortness of breath Plan: Pt arrived with O2 of 74% Unable to answer if she has oxygen tanks full at home EM called for transport and pt needs ER evaluation for dyspnea as well as [employer] work support to help her with management of her chronic illness (2) Hypoxia: Code(s): R09.02 - Hypoxemia Plan: see above Coding Level of Care Code Est Pt Level 5 (47835) Diagnoses Shortness of breath R06.02 Dyspnea type: shortness of breath Hypoxia R09.02
--- OUTSIDE RECORDS SUMMARY | 2024-10-17 15:21 | XMS_ITS | Continuity of Care Document ---
Author Organization [facility] Address [address] [address] Phone Care Team Providers Care Business Office Specialist Name Role Phone Jesus KAUR, Aqib Unavailable Unavailable Advance Directives Directive Yes / No Effective Date File Name No Information Encounters Encounter Description Practice Location Reason(s) For Visit Diagnoses Date Provider Providers Copied on Encounter [facility], [address] [place] [address], [id number], [place] tel:[phone] [place] No Information 4 Jesus Aqib. [address] [place], [place], [id number] , [place]. tel:[phone] Family History Family Member Type Diagnosis Age [...]
[2024-10-17 15:22] VITALS: BP 112/68; PULSE 103; O2SAT 96
== END 2024-10-17 16:04 | disposition home or self-care (01) ==
PROVIDERS: PCP Internal Medicine; Visit Provider Physician Assistant
DX: R06.02 Shortness of breath (principal); R09.02 Hypoxemia

== ENCOUNTER → 2024-10-17 15:18 | Outpatient (BNVA) | payer MEDICARE, SELFPAY | PROVIDERS: PCP Internal Medicine; Visit Provider Physician Assistant | DX: R06.02 Shortness of breath (principal); R09.02 Hypoxemia; F03.90 Unspecified dementia, unspecified severity, without behavioral disturbance, psychotic disturbance, mood disturbance, and anxiety; F17.210 Nicotine dependence, cigarettes, uncomplicated | CPT/HCPCS: 99212 ==

== ENCOUNTER 2024-10-17 16:09 | Emergency (ER) | payer MEDICARE, MEDICAID, SELFPAY ==
--- NOTE | ~2024-10-17 | XR_ITS ---
CLINICAL HISTORY: sob 1 view chest x-ray Comparison: Chest x-ray from 10/17/2024 Findings: New mild right basilar pulmonary opacities. Emphysematous changes are redemonstrated. No pneumothorax or pleural effusion with partial obscuration of the lung bases. Imaged mediastinum is unchanged. Right lateral clavicle deformity appears old. IMPRESSION: 1. New mild right basilar atelectasis and/or pneumonitis. 2. No pneumothorax accounting for emphysematous changes. This document has been electronically signed by: Wang Mathew MD on 10/27/2024 01:43:33
--- NOTE | ~2024-10-17 | XR_ITS ---
EXAMINATION: XR CHEST CLINICAL INFORMATION: Hypoxic. COPD. COMPARISON: Most recent CT chest dated 10/10/2024. TECHNIQUE: Frontal view of the chest was obtained. FINDINGS: Hyperinflation of the lungs. Redemonstration of emphysematous changes with diffuse interstitial prominence. No focal airspace consolidation. No pleural effusion or pneumothorax. Stable cardiomediastinal silhouette. XR/XR chest 1V IMPRESSION: 1. No acute cardiopulmonary findings. 2. Emphysematous changes are redemonstrated. Electronically signed by: Paco Ignacio MD 10/17/2024 09:16 PM VENANCIO NIETO
--- NOTE | ~2024-10-17 | XR_ITS ---
CLINICAL HISTORY: cough, dyspnea 1 view chest x-ray Comparison: CR - XR CHEST 1V - 10/27/24 00:53 EST Findings: The lungs are hyperaerated. Mild diffuse interstitial prominence with few scattered ill-defined nodular airspace opacities. Redemonstration of several left-sided pulmonary granulomas. Small bilateral pleural effusions. No pneumothorax. Normal size heart. No acute fracture. IMPRESSION: 1. Mild diffuse interstitial prominence with few scattered nodular airspace opacities secondary to infection or edema. 2. Small bilateral pleural effusions. 3. Underlying emphysema. This document has been electronically signed by: Destinee Beaulieu DO on 11/02/2024 20:44:38
[2024-10-17 16:14] VITALS: BP 118/82; PULSE 103; O2SAT 96
[2024-10-17 16:16] VITALS: BP 162/83; PULSE 100; RESP 20; TEMP 36.9; O2SAT 97; BMI 16.0
[2024-10-17 16:26] VITALS: BP 162/83; PULSE 100; RESP 20; TEMP 36.9; O2SAT 97
--- NOTE | 2024-10-17 16:58 | ECG_ITS ---
Test Reason : SOB Blood Pressure : / mmHG Vent. Rate : 100 BPM Atrial Rate : 100 BPM P-R Int : 120 ms QRS Dur : 074 ms QT Int : 358 ms P-R-T Axes : 062 134 067 degrees QTc Int : 461 ms Normal sinus rhythm Right axis deviation Abnormal ECG When compared with ECG of 19-AUG-2024 18:23, No significant change was found Referred By: Fina Gaffney Electronically Signed By:KHRIS COLEMAN
--- NOTE | 2024-10-17 17:01 | ED.SOB ---
HPI - SOB/Dyspnea General Chief Complaint: Dyspnea Stated Complaint: FROM WALK IN, SOB, 72 ON RA PER EMS Time Seen by Provider: 10/17/24 16:16 Source: patient and EMS Mode of arrival: EMS Limitations: other History of Present Illness ED Provider: Dr. Fina Gaffney HPI Narrative: Patient comes to the emergency room from a walk-in clinic. According to EMS, patient walked in with an empty oxygen tank requesting oxygen. It is unclear how long the patient has been without oxygen. Patient has history of COPD, at home 4 L nasal cannula. Patient is current everyday smoker. According to EMS, the clinic reported that patient arrived with an oxygen saturation of 70% on room air. Patient states that she has history of memory problems, possibly dementia. Patient is a poor historian. At this time, patient has no complaints. When EMS started her on her usual 4 L, oxygen saturation improved to 98%. Patient denies any complaints. Related Data Home Medications ?Medication ?Instructions ?Recorded ?Confirmed valacyclovir 500 mg tablet 500 mg PO ONCE PRN cold sores 08/19/24 09/23/24 acetazolamide 250 mg tablet 250 mg PO DAILY 09/23/24 09/23/24 Previous Rx's ?Medication ?Instructions ?Recorded albuterol sulfate 90 mcg/actuation 2 puff inhalation Q4-6H PRN 02/27/24 aerosol inhaler shortness of breath or wheezing 30 days #8.5 grams megestrol 40 mg tablet 40 mg PO DAILY 90 days #90 tabs 03/06/24 fluticasone 250 mcg-salmeterol 50 1 inh inhalation BID copd 30 days 06/03/24 mcg/dose blistr powdr for #60 ea inhalation (Wixela Inhub) quetiapine 25 mg tablet (Seroquel) 25 mg PO BEDTIME 90 days #90 tabs 06/23/24 sertraline 50 mg tablet 50 mg PO DAILY #90 tabs 06/23/24 donepezil 5 mg tablet 5 mg PO BEDTIME #30 tabs 09/05/24 nebulizer with all supplies #1 ea 09/05/24 tiotropium bromide 18 mcg capsule 1 cap inhalation DAILY SEVERE COPD 09/05/24 with inhalation device (Spiriva 30 days #30 inhalations with HandiHaler) acetazolamide 250 mg tablet 250 mg PO QID RESP. FAILURE 30 09/23/24 days #120 tabs ipratropium 0.5 mg-albuterol 3 mg 3 ml inhalation Q8H PRN wheezing 10/03/24 (2.5 mg base)/3 mL nebulization 30 days #90 mL soln Allergies Allergy/AdvReac Type Severity Reaction Status Date / Time No Known Allergies Allergy Verified 10/17/24 16:17 Review of Systems Review of Systems: Constitutional : No Weight loss, No Fever, No Chills, No Night Sweats, No Fatigue, No Malaise ENT/Mouth : No Hearing loss, No Ear Pain, No Nasal Congestion, No Sinus Pain, No Hoarseness, No sore throat, No Rhinorrhea, No Swallowing Difficulty Eyes: No Eye Pain, No Swelling, No Redness, No Foreign Body, No Discharge, No Vision Changes Cardiovascular : No Chest Pain, No SOB, No Dyspnea on Exertion, No Orthopnea, No Edema, No Palpitations Respiratory : No Cough, No Sputum, No Wheezing, No Smoke Exposure, complaining of chronic Dyspnea Gastrointestinal : No Nausea, No Vomiting, No Diarrhea, No Constipation, No abdominal Pain, No Hematochezia, No Melena Genitourinary : no irregular bleeding, No Dysuria, No Urinary Frequency, No Hematuria, No Urinary Incontinence, No Urgency, No Flank Pain, No Urinary Flow Changes, No Hesitancy Musculoskeletal : No joint pain, No Myalgias, No Joint Swelling Skin : No Skin Lesions, No rash Neuro : No Weakness, No Numbness, No Paresthesias, No Loss of Consciousness, No Dizziness, No Headache Psych : No Anxiety/Panic, No Depression, No SI/HI/AH/VH, No Social Issues, Heme/Lymph: No Bruising, No Bleeding,No Lymphadenopathy Endocrine : No Polyuria, No Polydipsia, No Temperature Intolerance [facility] Past Medical History Medical History Acute on chronic hypoxic respiratory failure Major neurocognitive disorder Encounter for assessment of decision-making capacity Cognitive impairment Nicotine dependence, cigarettes, uncomplicated Anal itching Vaginal discharge Colonoscopy refused Palpitation Colon cancer screening Non-compliance Anorexia nervosa Underweight Urinary urgency Eczema Mammogram declined Surgical History History of cervical biopsy History of tonsillectomy History of surgery on arm Family History Family History Father Family history unknown Mother COPD (chronic obstructive pulmonary disease) Sister No problems noted. Sister COPD (chronic obstructive pulmonary disease) Social History Social History Household Members: None Housing: Apartment Do you presently have visiting nurse or other home services: No Alcohol intake: current Alcohol intake frequency: 0-2 drinks per day Alcohol type: hard liquor Patient Tobacco Use Status: Current everyday Tobacco user Tobacco use type: Cigarette Cigarettes Per Day: 10 Years Smoked: onset 13yo, 1ppd x 45yrs, now1/2ppd - 40pyh Smoked in Last 30 Days: Yes e-Cigarette/Vaping Use: Never Used Second Hand Smoke Exposure: No Use of substances other than those prescribed or required for medical reasons: No Substance Use Type: Marijuana Advance Directives: No Advance Directives Information Provided: No Do you have a plan to hurt others: No Plan service: No Current occupational status: disabled Sexual orientation: Straight/Heterosexual Gender identity: Female Cognitive needs: No Hearing needs: No Vision needs: No Physical Exam Vital Signs: Vital Signs: Last Vital Signs Temp 98.2 F 10/17/24 20:23 Pulse 99 10/17/24 20:23 Resp 20 10/17/24 20:23 BP 137/80 10/17/24 20:23 Pulse Ox 93 10/17/24 20:23 O2 Del Method Nasal Cannula 10/17/24 20:23 O2 Flow Rate 2 10/17/24 20:23 Oxygen Flow Rate 3 10/17/24 16:16 BMI result Body Mass Index 16.0 Const: Other: Appearance: Alert. Oriented X3. No acute distress. Eyes: Pupils equal, round and reactive to light. ENT: Pharynx normal. Neck: Normal inspection. Neck supple. No lymph nodes noted. No crepitus CVS: Normal heart rate and rhythm. Pulses normal. Normal S1 and S2 Respiratory: No respiratory distress, mild bilateral wheezing with good air movement, oxygen saturation 98% on patient's home O2 4 L. Abdomen: Soft and nontender. No rigidity. No distention. Skin: Skin warm and dry. Normal skin color. Normal skin turgor. Extremities: No lower extremity edema. No Lacerations. No Rash Neuro: Oriented X 3. No motor deficit. No sensory deficit. Moving all extremities. No slurred speech. CN 2 through 12 grossly intact Psych: calm, cooperative, normal affect Medical Decision Making Medical Decision Making [facility] Narrative: Patient's oxygen saturation 98% on 4 L, we will reduced her oxygen to 2 L, currently saturating 94%. Patient states that she has no symptoms and would like to be discharged home. My interpretation of labs: No significant abnormality inpatient hematology and chemistry. Urinalysis shows a large amount of leukocyte esterase, urine has a large amount of wbc's, no significant amount of squamous epithelial cells, we will treat as a UTI. Patient was given the 1st dose of cefuroxime in the ED Patient is awake, alert and oriented x3. However, patient seems to be occasionally confused, repeating herself. Patient's daughter called, states that she has the healthcare proxy and the HCP is invoked. Seems that the patient is not doing well at home, gradually become more confused. Patient's daughter concerned that she was seen by Psychiatry in September of 2024. Patient was discharged with VNA services, healthcare proxy believes that patient needs more care. I reviewed patient's medical record, on 08/26/2024, Bee showed a significant impairment in language including naming, repetition, fluency, visual spatial and orientation. Also showed mother cognitive impairment. Patient already had MRI showing atrophy in the temporal lobes suggesting Alzheimer's disorder. Overall, family reports that they feel that the patient is not safe returning to her house by herself. As mentioned above, patient being treated for UTI, also, we will obtain another psych consult for the morning, patient may need a new assessment for capacity Also, a case management consult was ordered, it is possible that patient may not have any refills for her oxygen tanks. We may need case management help investigate. Physician observation started at 23:43 Sign-out given to my colleague Dr. Vance Differential Diagnosis Differential Diagnoses: The differential diagnosis associated with the presentation includes (UTI, confusion due to hypoxia, Alzheimer's dementia) Admission/Observation Consideration of admission/observation: Escalation of care including admission/observation considered (Patient is under physician observation waiting to be seen by Psychiatry) Lab Data [facility] Lab Attestation statement: I reviewed the patient's lab results. 10/17/24 17:31 10/17/24 17:31 Labs: Lab Results 10/17/24 10/17/24 10/17/24 Range/Units 17:29 17:31 17:36 WBC 7.8 (4.8-10.8) X10*3/uL RBC 3.87 L (4.20-5.50) X10*6/uL Hgb 12.2 (12.0-16.0) g/dl Hct 38.1 (37.0-47.0) % MCV 98.4 H (80.0-98.0) fL MCH 31.5 (27.0-33.0) pg MCHC 32.0 (31.0-35.0) g/dl RDW 11.7 (11.0-16.0) % Plt Count 232 (160-400) X10*3/uL MPV 10.0 (9.4-12.3) fL Immature Gran % (Auto) 0.4 (0.0-0.4) % Neut % (Auto) 72.2 (45-73) % Lymph % (Auto) 16.7 L (20-40) % [place] % (Auto) 6.6 (2-11) % Eos % (Auto) 3.3 (0-4) % Baso % (Auto) 0.8 (0-2) % Lymph # (Auto) 1.3 (1.2-4.9) X10*3/uL [place] # (Auto) 0.5 (0.1-1.2) X10*3/uL Eos # (Auto) 0.3 (0.0-0.4) X10*3/uL Baso # (Auto) 0.1 (0.0-0.2) X10*3/uL Abs Immat Gran (auto) 0.03 (0.00-0.03) X10*3/uL Absolute Neuts (auto) 5.7 (2.0-8.3) x10*3/uL Absolute Nucleated RBC 0.000 (0.0-0.012) X10*3/uL Nucleated RBC % (auto) 0.0 (0.0-0.2) /100WBC PT 11.4 (10.9-12.4) SEC INR 1.0 (0.9-1.1) VBG pH 7.37 (7.32-7.43) VBG pCO2 76 mmHg VBG pO2 46 mmHg VBG HCO3 44 H (22-26) mmol/L VBG O2 Saturation 78.0 % VBG Base Excess 15.8 mmol/L Sodium 144 (135-145) mmol/L Potassium 3.6 (3.3-5.1) mmol/L Chloride 100 (96-108) mmol/L Carbon Dioxide 40 H* (22-29) mmol/L Anion Gap 8 L (12-20) BUN 6 L (9-16) mg/dL Creatinine 0.63 (0.5-1.4) mg/dL Estim Creat Clear Calc 62.6 Estimated GFR > 60 Random Glucose 96 (60-115) mg/dL Lactic Acid 0.8 (0.5-2.0) mmol/L Calcium 9.0 (8.4-10.2) mg/dL Total Bilirubin 0.3 (0.0-1.0) mg/dL Direct Bilirubin 0.1 (0.0-0.5) mg/dL AST 22 (5-31) U/L ALT 17 (0-31) U/L Alkaline Phosphatase 29 L (39-117) U/L Troponin I High Sens 8.0 (<3.5-17.0) ng/L B-Natriuretic Peptide 29 (<100) pg/mL Total Protein 6.8 (6.5-8.0) g/dL Albumin 4.1 (3.5-5.0) g/dL Urine Color Urine Appearance Urine pH (5.0-9.0) Ur Specific [place] (1.005-1.025) Urine Protein (Neg-Trace) mg/dL Urine Glucose (UA) (Negative) mg/dL Urine Ketones (Negative) mg/dL Urine Blood (Negative) Urine Nitrite (Negative) Ur Leukocyte Esterase (Negative) Urine RBC (0-2) /HPF Urine WBC (0-5) /HPF Ur Squamous Epith Cells (0-2) /HPF Urine Bacteria (None Seen) Hyaline Casts (0-2) /LPF Influenza Type A (PCR) NEGATIVE (Negative) Influenza Type B (PCR) NEGATIVE (Negative) RSV RNA Qual (PCR) NEGATIVE (Negative) SARS-CoV-2 RNA (RT-PCR) NEGATIVE (Negative) 10/17/24 Range/Units 22:12 WBC (4.8-10.8) X10*3/uL RBC (4.20-5.50) X10*6/uL Hgb (12.0-16.0) g/dl Hct (37.0-47.0) % MCV (80.0-98.0) fL MCH (27.0-33.0) pg MCHC (31.0-35.0) g/dl RDW (11.0-16.0) % Plt Count (160-400) X10*3/uL MPV (9.4-12.3) fL Immature Gran % (Auto) (0.0-0.4) % Neut % (Auto) (45-73) % Lymph % (Auto) (20-40) % [place] % (Auto) (2-11) % Eos % (Auto) (0-4) % Baso % (Auto) (0-2) % Lymph # (Auto) (1.2-4.9) X10*3/uL [place] # (Auto) (0.1-1.2) X10*3/uL Eos # (Auto) (0.0-0.4) X10*3/uL Baso # (Auto) (0.0-0.2) X10*3/uL Abs Immat Gran (auto) (0.00-0.03) X10*3/uL Absolute Neuts (auto) (2.0-8.3) x10*3/uL Absolute Nucleated RBC (0.0-0.012) X10*3/uL Nucleated RBC % (auto) (0.0-0.2) /100WBC PT (10.9-12.4) SEC INR (0.9-1.1) VBG pH (7.32-7.43) VBG pCO2 mmHg VBG pO2 mmHg VBG HCO3 (22-26) mmol/L VBG O2 Saturation % VBG Base Excess mmol/L Sodium (135-145) mmol/L Potassium (3.3-5.1) mmol/L Chloride (96-108) mmol/L Carbon Dioxide (22-29) mmol/L Anion Gap (12-20) BUN (9-16) mg/dL Creatinine (0.5-1.4) mg/dL Estim Creat Clear Calc Estimated GFR Random Glucose (60-115) mg/dL Lactic Acid (0.5-2.0) mmol/L Calcium (8.4-10.2) mg/dL Total Bilirubin (0.0-1.0) mg/dL Direct Bilirubin (0.0-0.5) mg/dL AST (5-31) U/L ALT (0-31) U/L Alkaline Phosphatase (39-117) U/L Troponin I High Sens (<3.5-17.0) ng/L B-Natriuretic Peptide (<100) pg/mL Total Protein (6.5-8.0) g/dL Albumin (3.5-5.0) g/dL Urine Color Yellow Urine Appearance Turbid Urine pH 7.5 (5.0-9.0) Ur Specific [place] 1.010 (1.005-1.025) Urine Protein Negative (Neg-Trace) mg/dL Urine Glucose (UA) Negative (Negative) mg/dL Urine Ketones Negative (Negative) mg/dL Urine Blood Negative (Negative) Urine Nitrite Negative (Negative) Ur Leukocyte Esterase Large (3+) H (Negative) Urine RBC 0-2 (0-2) /HPF Urine WBC 21-50 H (0-5) /HPF Ur Squamous Epith Cells 3-5 (0-2) /HPF Urine Bacteria None Seen (None Seen) Hyaline Casts 0-2 (0-2) /LPF Influenza Type A (PCR) (Negative) Influenza Type B (PCR) (Negative) RSV RNA Qual (PCR) (Negative) SARS-CoV-2 RNA (RT-PCR) (Negative) Independent Interpretation I performed an independent interpretation of an: Plain X-Ray Radiology Impression Discussion of test interpretation with radiology: I have reviewed the radiologist's reading. Radiologist Impression: Hyperinflation of the lungs. Redemonstration of emphysematous changes with diffuse interstitial prominence. No focal airspace consolidation. No pleural effusion or pneumothorax. Stable cardiomediastinal silhouette. XR/XR chest 1V IMPRESSION: 1. No acute cardiopulmonary findings. 2. Emphysematous changes are redemonstrated. Critical Care Time Critical Care Time Critical Care Time: Yes Total Critical Care Time: 35 Attestation: I have personally provided critical care time. Time includes review of lab data, radiology results, discussion with consultants, and monitoring for potential decompensation. Intervention performed as documented. Discharge Plan Discharge Clinical Impression: Dementia Patient Disposition: Still a Patient Prescriptions: No Action albuterol sulfate 90 mcg/actuation HFA aerosol inhaler 2 puff inhalation Q4-6H PRN (Reason: shortness of breath or wheezing) 30 Days Qty: 8.5 3RF megestrol 40 mg tablet 40 mg PO DAILY 90 Days Qty: 90 3RF fluticasone propion-salmeterol [Wixela Inhub] 250-50 mcg/dose blister with device 1 inh inhalation BID 30 Days Qty: 60 3RF quetiapine [Seroquel] 25 mg tablet 25 mg PO BEDTIME 90 Days Qty: 90 1RF sertraline 50 mg tablet 50 mg PO DAILY Qty: 90 1RF donepezil 5 mg tablet 5 mg PO BEDTIME Qty: 30 3RF ipratropium-albuterol 0.5 mg-3 mg(2.5 mg base)/3 mL solution for nebulization 3 ml inhalation Q8H PRN (Reason: wheezing) 30 Days Qty: 90 0RF valacyclovir 500 mg tablet 500 mg PO ONCE PRN (Reason: cold sores) tiotropium bromide [Spiriva with HandiHaler] 18 mcg capsule, w/inhalation device 1 cap inhalation DAILY 30 Days Qty: 30 2RF Rx Instructions: puncture 1 cap using device; one dose = 2 inhalations (DME) nebulizer with all supplies See Rx Instructions .Route .MEDSUPPLY Qty: 1 0RF Rx Instructions: As directed acetazolamide 250 mg tablet 250 mg PO DAILY acetazolamide 250 mg tablet 250 mg PO QID 30 Days Qty: 120 5RF Print Language: Ukrainian
[2024-10-17 17:37] LABS: MANUAL DIFF FLAG NO
[2024-10-17 17:41] LABS: VBG Base Excess 15.8 mmol/L; VBG HCO3 44 mmol/L (22-26); VBG pCO2 76 mmHg; VBG pH 7.37 (7.32-7.43); VBG pO2 46 mmHg
[2024-10-17 17:41] LABS: Basophils Absolute Auto 0.1 X10*3/uL (0.0-0.2); Basophils Percent Auto 0.8 % (0-2); Eosinophils Absolute Auto 0.3 X10*3/uL (0.0-0.4); Eosinophils Percent Auto 3.3 % (0-4); Hematocrit 38.1 % (37.0-47.0); Hemoglobin 12.2 g/dl (12.0-16.0); Imm Gran Abs Auto 0.03 X10*3/uL (0.00-0.03); Imm Gran Pct Auto 0.4 % (0.0-0.4); Lymphocytes Absolute Auto 1.3 X10*3/uL (1.2-4.9); Lymphocytes Percent Auto 16.7 % (20-40); Mean Corpuscular Hemoglobin 31.5 pg (27.0-33.0); Mean Corpuscular Volume 98.4 fL (80.0-98.0); Monocytes Absolute Auto 0.5 X10*3/uL (0.1-1.2); Monocytes Percent Auto 6.6 % (2-11); Neutrophils Absolute Auto 5.7 x10*3/uL (2.0-8.3); Neutrophils Percent Auto 72.2 % (45-73); Platelet Count 232 X10*3/uL (160-400); Red Blood Count 3.87 X10*6/uL (4.20-5.50); Red Cell Distribution Width 11.7 % (11.0-16.0); White Blood Count 7.8 X10*3/uL (4.8-10.8)
[2024-10-17 17:42] LABS: Venous Blood Gas Refer to POC result
[2024-10-17 17:48] VITALS: BP 119/78; PULSE 98; RESP 18; TEMP 37; O2SAT 97
[2024-10-17 17:52] LABS: Prothrombin Time 11.4 SEC (10.9-12.4)
[2024-10-17 17:57] LABS: B Type Natriuretic Peptide 29 pg/mL (<100)
--- NOTE | 2024-10-17 17:58 | MHC.EDTECH ---
Patient was biba ,blood drawn including 2nd sets of blood culture ,lactic acid and rsv/covid swab collected all sent to lab ,Patient was change into hospital attire and hooked up to technical sme ,ekg taken and was read by Provider .
[2024-10-17 18:06] LABS: Lactic Acid 0.8 mmol/L (0.5-2.0)
[2024-10-17 18:10] LABS: Alanine Aminotransferase 17 U/L (0-31); Albumin Level 4.1 g/dL (3.5-5.0); Alkaline Phosphatase 29 U/L (39-117); Anion Gap 8 (12-20); Aspartate Amino Transferase 22 U/L (5-31); Bilirubin Direct 0.1 mg/dL (0.0-0.5); Bilirubin Total 0.3 mg/dL (0.0-1.0); Blood Urea Nitrogen 6 mg/dL (9-16); Carbon Dioxide 40 mmol/L (22-29); Chloride 100 mmol/L (96-108); Creatinine Clr Calc Pharmacy 62.6; Estimated Glomerular Filt Rate > 60; Glucose Random 96 mg/dL (60-115); Potassium 3.6 mmol/L (3.3-5.1); Sodium 144 mmol/L (135-145); Total Protein 6.8 g/dL (6.5-8.0)
[2024-10-17 18:20] LABS: Influenza A PCR NEGATIVE (Negative); Influenza B PCR NEGATIVE (Negative); Resp Syncy Virus RNA Qual PCR NEGATIVE (Negative); SARS COV2 PCR INHOUSE NEGATIVE (Negative)
[2024-10-17 20:23] VITALS: BP 137/80; PULSE 99; RESP 20; TEMP 36.8; O2SAT 93
--- NOTE | 2024-10-17 20:35 | PC.NURSE ---
Addendum entered by Pj Magana RN 10/17/24 22:13: pt A+O to person and place. pt stated it is May and that she is unaware of reason for ED visit. this nurse and daughter reoriented. ambulated again to commode and urine sample collected Original Note: recived pt at 1900 from [facility]. pt hx of dementia, denies SOB, pain, and any symptoms at this time, currently on 2L NC, SpO2 92%, daughter at bedside. pt ambulated to commode with standby assist. HCP Cuca daughter states that patient is unsafe to return home alone, pt still driving and forgetful to change from home O2 unit to mobile supplemental O2 cannula, becomes hypoxic and SOB. call rivera in reach.
[2024-10-17 22:19] LABS: Appearance Urine Turbid; Color Urine Yellow; Glucose Urine UA Negative (Negative); Leukocyte Esterase Urine Large (3+) (Negative); Nitrite Urine Negative (Negative); PH 7.5 (5.0-9.0); UMIC TRIGGER UACC YES; Urine Blood Negative (Negative); Urine Ketones Negative (Negative); Urine Protein Negative (Neg-Trace)
[2024-10-17 22:24] LABS: Bacteria Urine None Seen (None Seen); Hyaline Casts Urine 0-2 /LPF (0-2); RBC Urine 0-2 /HPF (0-2); UACC Culture Trigger YES; WBC Urine 21-50 /HPF (0-5)
[2024-10-17 23:45] VITALS: BP 117/91; PULSE 95; RESP 22; TEMP 36.8; O2SAT 94
[2024-10-18] VITALS (8 sets, daily range): BP systolic 107–146; BP diastolic 66–86; PULSE 84–100; RESP 13–20; TEMP 36.6–37.4; O2SAT 92–95
[2024-10-18] MEDS: cefuroxime axetiL 250 MG TABLET PO (00:07)
--- NOTE | 2024-10-18 01:40 | PC.NURSE ---
Addendum entered by Pj Magana RN 10/18/24 05:44: pt sleeping from around 0300 to present. pt remains arousable to voice when vitals taken. calm, answers orientation questions, vague on situation. reoriented, continues to deny pain or SOB. call rivera in reach, plan of care continues Original Note: pt confused, forgetful, reptitvely yelling out for staff inuqiring about purpose for telemetry and oximetry wires and reason for overnight stay. pt reassurance provided, reoriented to situation. MD Yeimy ulloa of completed med rec. plan to administer home donepezil and seroquel. pt denies pain or SOB at this time, call rivera in reach
[2024-10-18] MEDS: Nicotine Polacrilex 2 MG GUM BUCCAL (01:52)
[2024-10-18] MEDS: Nicotine 14 MG PATCH.TD24 TRANSDERMA (01:52)
[2024-10-18] MEDS: QUEtiapine Fumarate 25 MG TABLET PO ×2 (01:58→21:45)
[2024-10-18] MEDS: Donepezil HCl 5 MG TABLET PO ×2 (01:58→21:45)
--- NOTE | 2024-10-18 05:42 | PC.NURSE ---
Pt sleeping at the bedside. Tachypneic at 24-26RR, SPo2 95-96% on 2L NC. O2 decreased to 1L as pt has hx of COPD. Current SPo2 93% on 1L NC. NSR on monitor. Pending psych eval. Monitoring is ongoing.
[2024-10-18] MEDS: Megestrol Acetate 20 MG TABLET 40 MG PO (11:21)
[2024-10-18] MEDS: Sertraline HCL 50 MG TABLET PO (11:22)
[2024-10-18] MEDS: Tiotropium Bromide 2.5 mcg 1 PUFF/2.5 MCG MIST.INHAL INHALE (11:24)
[2024-10-18] MEDS: Fluticasone/Vilanterol 200/25 BLST.W.DEV 1 PUFF INHALE (11:24)
--- NOTE | 2024-10-18 12:42 | PHA.MEDREC ---
Pharmacy Consult ? Medication Reconciliation Pharmacy has completed the medication reconciliation. Reviewed med rec done by nursing, matches all claim history
--- NOTE | 2024-10-18 13:15 | PC.NURSE ---
Per PT, pt made some comments about wanting to go to [facility] to be with her mother and sister. This RN spoke with pt who denied any SI. Today is the anniversary of her mothers and she is speaking often of her. Pt states she makes statements like this often for years and further states that she doesn't understand why everyone keeps asking her about it. Pt states you know it's like when you lose your family and you miss them and you can't wait to see them again. I would never do anything to hurt myself but someday when I am in [facility] I will be glad to see them and be with them again. CALLIE Santos. aware, no further interventions ordered at this time.
--- NOTE | 2024-10-18 13:55 | MHC.CM.ED ---
Received case management consult overnight. Patient came to the ER due low O2 sat at walk-in clinic. Physical therapy eval completed. 21/05 supervision is recommended. Met with patient and daughter, Cuca, in regards to discharge planning. Patient lives alone, has oxygen through and is active with [facility] for fpc, physical therapy and occupational therapy. Cuca is concerned about patient remaining at home alone because of her dementia. Cuca has been working with [facility] to complete [facility] application for frail and elderly. Cuca is hoping to get patient into [facility]. In July they had an apartment available. Anticipate patient will remain with us through the weekend until [facility] financial counselors can assist with completing [employer] application and [facility] can be contacted about any availability. Cuca also aware patient may need to go to SNF under [facility] pending. Continue to monitor for d/c needs.
--- NOTE | 2024-10-18 14:35 | P.CNPS_ITS ---
History of Present Illness Date of Service: 10/18/2024 Chief Complaint: FROM WALK IN, SOB, 74 ON RA PER EMS Reason for Consult: capacity Requesting physician: Fina Gaffney Discussed with referring provider: Yes Sources of Information: patient interviewed, chart reviewed and crisis/core team assessment reviewed HPI Narrative: Ms. Walker is a 59 year-old woman with hx of COPD, AD dementia, who was brought from urgent care where she presented with empty oxygen tank and o2sat on RA of 70%. She is back on 4L and O2sat 97-94% Pt is known to this credit underwriter through previous medical admission where cognitive assessments were completed due to concern in terms of her memory and ability to care for herself. Pt seen in the ED. She is NOT oriented to month, year nor situation. She reports she does not remember ever being in this hospital. She does not know what city we are in. She does notes that her memory is not good. She is somewhat in agreement that she needs more help and not safe to be on her own. Medical Evaluation Reviewed: Yes COUNT INCLUDES THE [facility] Medical History Acute on chronic hypoxic respiratory failure Major neurocognitive disorder Encounter for assessment of decision-making capacity Cognitive impairment Nicotine dependence, cigarettes, uncomplicated Anal itching Vaginal discharge Colonoscopy refused Palpitation Colon cancer screening Non-compliance Anorexia nervosa Underweight Urinary urgency Eczema Mammogram declined Surgical History History of cervical biopsy History of tonsillectomy History of surgery on arm Diagnostics Vital Signs (24Hr): Vital Signs - 24 hr 10/17/24 16:16 10/17/24 16:26 10/17/24 17:48 Temperature 98.4 F 98.4 F 98.6 F Pulse Rate 100 100 98 Respiratory Rate 20 20 18 Blood Pressure 162/83 H 162/83 H 119/78 Pulse Oximetry 97 97 97 Oxygen Delivery Method Nasal Cannula Nasal Cannula Nasal Cannula Oxygen Flow Rate 2 10/17/24 20:23 10/17/24 23:45 10/18/24 02:17 Temperature 98.2 F 98.2 F 97.9 F Pulse Rate 99 95 84 Respiratory Rate 20 22 H 16 Blood Pressure 137/80 117/91 H 131/81 Pulse Oximetry 93 94 95 Oxygen Delivery Method Nasal Cannula Nasal Cannula Nasal Cannula Oxygen Flow Rate 2 3 10/18/24 06:02 10/18/24 10:02 10/18/24 10:44 Temperature 98.7 F 99.3 F Pulse Rate 89 94 94 Respiratory Rate 13 15 Blood Pressure 107/66 128/76 128/76 Pulse Oximetry 95 94 94 Oxygen Delivery Method Nasal Cannula Nasal Cannula Oxygen Flow Rate 1 2 10/18/24 11:26 Temperature Pulse Rate 100 Respiratory Rate 14 Blood Pressure Pulse Oximetry Oxygen Delivery Method Oxygen Flow Rate BMI result Body Mass Index 16.0 Labs 10/17/24 17:31 10/17/24 17:31 Labs: Laboratory Results - last 48 hr 10/17/24 10/17/24 10/17/24 17:29 17:31 17:36 WBC 7.8 RBC 3.87 L Hgb 12.2 Hct 38.1 MCV 98.4 H MCH 31.5 MCHC 32.0 RDW 11.7 Plt Count 232 MPV 10.0 Immature Gran % (Auto) 0.4 Neut % (Auto) 72.2 Lymph % (Auto) 16.7 L [place] % (Auto) 6.6 Eos % (Auto) 3.3 Baso % (Auto) 0.8 Lymph # (Auto) 1.3 [place] # (Auto) 0.5 Eos # (Auto) 0.3 Baso # (Auto) 0.1 Abs Immat Gran (auto) 0.03 Absolute Neuts (auto) 5.7 Absolute Nucleated RBC 0.000 Nucleated RBC % (auto) 0.0 PT 11.4 INR 1.0 VBG pH 7.37 VBG pCO2 76 VBG pO2 46 VBG HCO3 44 H VBG O2 Saturation 78.0 VBG Base Excess 15.8 Sodium 144 Potassium 3.6 Chloride 100 Carbon Dioxide 40 H* Anion Gap 8 L BUN 6 L Creatinine 0.63 Estim Creat Clear Calc 62.6 Estimated GFR > 60 Random Glucose 96 Lactic Acid 0.8 Calcium 9.0 Total Bilirubin 0.3 Direct Bilirubin 0.1 AST 22 ALT 17 Alkaline Phosphatase 29 L Troponin I High Sens 8.0 B-Natriuretic Peptide 29 Total Protein 6.8 Albumin 4.1 Urine Color Urine Appearance Urine pH Ur Specific [place] Urine Protein Urine Glucose (UA) Urine Ketones Urine Blood Urine Nitrite Ur Leukocyte Esterase Urine RBC Urine WBC Ur Squamous Epith Cells Urine Bacteria Hyaline Casts Influenza Type A (PCR) NEGATIVE Influenza Type B (PCR) NEGATIVE RSV RNA Qual (PCR) NEGATIVE SARS-CoV-2 RNA (RT-PCR) NEGATIVE 10/17/24 22:12 WBC RBC Hgb Hct MCV MCH MCHC RDW Plt Count MPV Immature Gran % (Auto) Neut % (Auto) Lymph % (Auto) [place] % (Auto) Eos % (Auto) Baso % (Auto) Lymph # (Auto) [place] # (Auto) Eos # (Auto) Baso # (Auto) Abs Immat Gran (auto) Absolute Neuts (auto) Absolute Nucleated RBC Nucleated RBC % (auto) PT INR VBG pH VBG pCO2 VBG pO2 VBG HCO3 VBG O2 Saturation VBG Base Excess Sodium Potassium Chloride Carbon Dioxide Anion Gap BUN Creatinine Estim Creat Clear Calc Estimated GFR Random Glucose Lactic Acid Calcium Total Bilirubin Direct Bilirubin AST ALT Alkaline Phosphatase Troponin I High Sens B-Natriuretic Peptide Total Protein Albumin Urine Color Yellow Urine Appearance Turbid Urine pH 7.5 Ur Specific [place] 1.010 Urine Protein Negative Urine Glucose (UA) Negative Urine Ketones Negative Urine Blood Negative Urine Nitrite Negative Ur Leukocyte Esterase Large (3+) H Urine RBC 0-2 Urine WBC 21-50 H Ur Squamous Epith Cells 3-5 Urine Bacteria None Seen Hyaline Casts 0-2 Influenza Type A (PCR) Influenza Type B (PCR) RSV RNA Qual (PCR) SARS-CoV-2 RNA (RT-PCR) Imaging Radiology Impressions: ITS Impressions Chest X-Ray 10/17/24 16:59 IMPRESSION: 1. No acute cardiopulmonary findings. 2. Emphysematous changes are redemonstrated. Electronically signed by: Paco Ignacio MD 10/17/2024 09:16 PM [facility] Mental Status Exam Mental Status Exam Narrative: Appearance: wearing hospital gown, good hygiene, in thin, in NAD Behavior: cooperative, somewhat guarded as she wants to leave Psychomotor: no agitation or retardation noted Speech: clear, normal rate/rhythm/volume, spontaneous TP: linear- goal oriented wanting to go home TC: wanting to go home Mood: not good here Affect: bright, non labile SI: none HI: none Insight/judgment: impaired x 2. memory/cog; alert, this time not oriented to place, month, nor situation. Previous MOCA had shown deficit in language, orientation, executive function. Medications Medications Current Medications Albuterol/Ipratropium (Albuterol/Iprat 2.5/0.5mg 3 Ml Ampul.Neb) 3 ml INHALE Q8H PRN PRN Reason: wheezing Donepezil HCl (Donepezil Hcl 5 Mg Tablet) 5 mg PO BEDTIME [facility] Last Admin: 10/18/24 01:58 Dose: 5 mg Fluticasone/Vilanterol (Fluticasone/Vilanterol 200/25 Blst.W.Dev) 1 puff INHALE RDAILY [facility] Last Admin: 10/18/24 11:24 Dose: 1 puff Megestrol Acetate (Megestrol Acetate 20 Mg Tablet) 40 mg PO DAILY [facility] Last Admin: 10/18/24 11:21 Dose: 40 mg Quetiapine Fumarate (Quetiapine Fumarate 25 Mg Tablet) 25 mg PO BEDTIME [facility] Last Admin: 10/18/24 01:58 Dose: 25 mg Sertraline HCl (Sertraline Hcl 50 Mg Tablet) 50 mg PO DAILY [facility] Last Admin: 10/18/24 11:22 Dose: 50 mg Tiotropium [place] (Tiotropium [place] 2.5 Mcg 1 Puff/2.5 Mcg Mist.Inhal) 1 puff INHALE RDAILY [facility] Last Admin: 10/18/24 11:24 Dose: 1 puff Allergies Allergies Allergy/AdvReac Type Severity Reaction Status Date / Time No Known Allergies Allergy Verified 10/17/24 16:17 Assessment & Plan Assessment & Plan (1) 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 Walker is a 59 year-old woman with hx of dementia pattern of cognitive decline in (previous cognitive assessment show AD pattern of dementia, there may also be vascular but seems most impairments related to AD). Pt currently not oriented to place, month, year nor situation. Increasing concern in terms of her ability to care for herself. She does need 24hrs supervision. PLAN 1. If HCP has not been invoke, recommend MD to invoke 2. Needs 24hrs/7 supervision, placement. Total time managing care of this patient today ____ minutes.
--- NOTE | 2024-10-18 19:56 | PC.NURSE ---
pt confused and very forgetful, states she wants to go home. HCP invoked. Pt frequently redirected and educated on plan for safe discharge. Pt took off O2 and ambulated into cortes x2. Camera and flight risk band initiated.
--- NOTE | 2024-10-18 21:59 | MHC.EDTECH ---
Pt requested commode. Independently transferred herself to and from commode to bed. all needs met at this time. Call rivera within reach, camera at bedside for safety.
--- NOTE | 2024-10-18 22:30 | PC.NURSE ---
Patient removed her own IV. Gauze and tape applied to stop bleeding. Patient is confused, needing frequent redirection stating I've had a band-aid on my arm for months, and I have showed everyone, and no one cares about it, so I took it out and I didn't expect for it to bleed everywhere . I explained that she removed an IV from her left AC and she stated no it wasn't an IV, I've had a band-aid and I've asked like 5 doctors to do something about it . Patient cleaned, new gown given. Heidi MYRICK aware of IV removal. Care ongoing by this RN. Camera remains in place/functional.
--- NOTE | 2024-10-18 22:37 | MHC.EDTECH ---
Pt removed IV and had blood spots on her sheet and gown. Initially asked for new sheets/gown, and when T/w asked Pt to hold on to her purse so I could remove dirty linen she says why? I don't need new sheets for a few spots of blood. RN aware
--- NOTE | 2024-10-18 23:16 | MHC.EDTECH ---
Pt took off oxygen and began to walk out of her room into the cortes. Pt redirected to her bed and oxygen reapplied. Pt reminded she needs to keep this in. Pt stated she is anxious. RN aware.
[2024-10-19 06:23] VITALS: BP 127/63; PULSE 91; RESP 16; TEMP 37.3; O2SAT 98
[2024-10-19 08:29] VITALS: BP 117/73; PULSE 74; RESP 17; TEMP 37.1; O2SAT 96
--- NOTE | 2024-10-19 09:50 | PC.NURSE ---
called down to pharmacy and tigertexted pharmacist Kortney regarding unavailable meds for patient at 09:08.
[2024-10-19] MEDS: Megestrol Acetate 20 MG TABLET 40 MG PO (10:15)
[2024-10-19] MEDS: Sertraline HCL 50 MG TABLET PO (10:16)
--- NOTE | 2024-10-19 11:01 | PC.NURSE ---
Patient assisted to bedside commode, standby assist. Call rivera within reach, camera in room. No other requests at this time.
[2024-10-19 12:00] VITALS: BP 128/72; PULSE 94; RESP 28; TEMP 36.5; O2SAT 94
[2024-10-19] MEDS: Tiotropium Bromide 2.5 mcg 1 PUFF/2.5 MCG MIST.INHAL INHALE (13:10)
[2024-10-19] MEDS: Fluticasone/Vilanterol 200/25 BLST.W.DEV 1 PUFF INHALE (13:10)
[2024-10-19 13:11] VITALS: PULSE 100; RESP 16; O2SAT 94
[2024-10-19 15:46] VITALS: BP 115/64; PULSE 98; RESP 20; TEMP 37.2; O2SAT 94
[2024-10-19] MEDS: OLANZapine 5 MG TABLET PO (15:53)
[2024-10-19] MEDS: diphenhydrAMINE HCL 25 MG CAPSULE PO (15:54)
[2024-10-19] MEDS: QUEtiapine Fumarate 25 MG TABLET PO (21:45)
[2024-10-19] MEDS: Donepezil HCl 5 MG TABLET PO (21:45)
[2024-10-20 07:39] VITALS: BP 116/62; PULSE 86; RESP 20; TEMP 36.4; O2SAT 99
--- NOTE | 2024-10-20 09:51 | MHC.CM.ED ---
Patient remains in ER overflow. Spoke with Lisa at [facility]. They no longer have availability. Attempted to reach out to Ruddy Parsons. Left voicemail requesting return telephone call. Spoke with Erlinda at [facility]. Clinical info will be faxed to her. Patient's daughter, Cuca, made aware of above. Also aware Thi from [facility] will contact her in order to complete and submit [facility] application. Cuca also aware if [facility] memory bed is unable to be found, patient may need to go for SNF under [facility] pending. However, [facility] application and required documents will need to be provided. Continue to monitor for d/c needs.
--- NOTE | 2024-10-20 10:09 | MHC.EDTECH ---
pt did not eat any breakfast. Pt states she is not hungry, just tired. Call rivera in place
[2024-10-20] MEDS: Sertraline HCL 50 MG TABLET PO (10:24)
[2024-10-20] MEDS: Megestrol Acetate 20 MG TABLET 40 MG PO (10:24)
--- NOTE | 2024-10-20 10:29 | PC.NURSE ---
Assumed care at 0945- pt. AO to self, resting comfortably in bed stating she is tired. Pt. medicated per DEC. Respirations even and unlabored. No complaints at this time.
--- NOTE | 2024-10-20 12:21 | MHC.EDTECH ---
pt did not eat any lunch, states that she does not have an appetite. Pt did drink an ensure and justine evon - 360cc of fluids
--- NOTE | 2024-10-20 13:40 | MHC.CM.ED ---
Patient remains in ER overflow. Per Thi of [facility], patient is active with [facility]. Daughter has copy of frail/elderly waiver. Daughter will provide a copy of this to CM. HCP is invoked. Cuca is the HCP. Cuca is requesting Verena Love not be allowed to visit patient. He is a tank bottom assembler friend of the patient. He does not have all of the information that patient does not have capacity to make her down decisions. Patient's visit made confidential at Cuca's request. Continue to monitor for d/c needs.
[2024-10-20 14:00] VITALS: BP 105/58; PULSE 97; RESP 17; TEMP 36.8; O2SAT 95
--- NOTE | 2024-10-20 17:30 | MHC.EDTECH ---
pt ate a few bites of dinner and 120cc of apple juice. Pt has chips at bedside that she has been eating throughout the day. call rivera in place.
--- NOTE | 2024-10-20 19:56 | PC.NURSE ---
Pt alert to self, no signs of distress. Pt requested and given wipes. Pts daughter at bedside (healthcare proxy). Plan of care ongoing.
[2024-10-20] MEDS: Donepezil HCl 5 MG TABLET PO (21:03)
[2024-10-20] MEDS: QUEtiapine Fumarate 25 MG TABLET PO (21:03)
--- NOTE | 2024-10-20 21:06 | PC.NURSE ---
Pt medicated per dec. Plan of care ongoing.
[2024-10-20 21:47] VITALS: BP 153/77; PULSE 99; RESP 18; TEMP 36.4; O2SAT 93
[2024-10-21 06:03] VITALS: BP 144/80; PULSE 69; RESP 16; TEMP 36.6; O2SAT 97
[2024-10-21 07:24] VITALS: PULSE 69; RESP 16; O2SAT 96
[2024-10-21] MEDS: Fluticasone/Vilanterol 200/25 BLST.W.DEV 1 PUFF INHALE (07:24)
[2024-10-21] MEDS: Tiotropium Bromide 2.5 mcg 1 PUFF/2.5 MCG MIST.INHAL INHALE (07:24)
[2024-10-21] MEDS: Sertraline HCL 50 MG TABLET PO (09:14)
[2024-10-21 11:22] VITALS: BP 113/69; PULSE 77; RESP 18; TEMP 36.8; O2SAT 97
[2024-10-21] MEDS: Megestrol Acetate 20 MG TABLET 40 MG PO (11:23)
--- NOTE | 2024-10-21 12:06 | MHC.CM.PN ---
Pt continues boarding in the ED awaiting completion of a frail elder waiver for LTC placement. It is expected pt will remain boarding until her dtr brings in the form and [facility]. CM to follow.
--- NOTE | 2024-10-21 13:17 | PC.NURSE ---
pt only took few bites of her lunch
--- NOTE | 2024-10-21 19:12 | PC.NURSE ---
report received and care assumed at 1900. pt found to be sitting on the edge of her bed awake and alert, skin warm and dry, fully dressed in street clothing with no distress noted. pt has snack/candy rappers in the commode, offering snacks and soda to staff. the pt has o2 via nc in place, reports feeling short of breath although o2 sat at 96% and lung sounds clear. she denies pain/discomfort at this time. staff will attempt to assist with having the patient change back into hospital attire as she is a known/documented flight risk and could easily be mistaken for a visitor.
--- NOTE | 2024-10-21 20:16 | MHC.EDTECH ---
patient changed into hospital clothes and placed into belongings bag. Patient in position of comfort and call rivera within reach
[2024-10-21] MEDS: Donepezil HCl 5 MG TABLET PO (20:22)
[2024-10-21] MEDS: QUEtiapine Fumarate 25 MG TABLET PO (20:22)
[2024-10-21 23:46] VITALS: BP 120/85; PULSE 85; RESP 16; TEMP 36.9; O2SAT 97
[2024-10-22 06:40] VITALS: BP 106/91; PULSE 83; RESP 16; TEMP 37.3; O2SAT 96
--- NOTE | 2024-10-22 08:07 | MHC.CM.ED ---
Patient remains in ER. Frail Elder waiver provided by patient's daughter/HCP, Cuca. Referral will be broadcasted in [facility] for [facility] pending placement. Continue to monitor for d/c needs.
[2024-10-22 08:38] VITALS: BP 108/53; PULSE 77; RESP 12; TEMP 37; O2SAT 98
[2024-10-22] MEDS: Sertraline HCL 50 MG TABLET PO (08:40)
[2024-10-22] MEDS: Megestrol Acetate 20 MG TABLET 40 MG PO (08:40)
--- NOTE | 2024-10-22 09:24 | PC.NURSE ---
patient resting quietly in hospital bed, resp even and unlabored, on 3l NC. patient medicated per DEC, takes meds whole with water
--- NOTE | 2024-10-22 13:22 | PC.NURSE ---
patient noted to be upset in room, patient upset her tv doesnt work. patient was also trying to talk to the other person in shared room, patient in other bed made it clear she does not want to conversate. patient became upset that she can not share he snacks with other patient. ED charge nurse made aware. patient moved into room 17
--- NOTE | 2024-10-22 13:32 | PC.NURSE ---
patient daughter here visiting with erickson, visitor Jefe Love made it into main ED despite patient being confidential and this specific visitor not previously being allowed back. Security notified, visitor escorted off of unit by staff. patient family reassured. security updated with visitors name
[2024-10-22 14:11] VITALS: BP 100/68; PULSE 94; RESP 18; TEMP 37.5; O2SAT 97
--- NOTE | 2024-10-22 15:01 | PC.NURSE ---
patient has been resting quietly in room, patient occasionally will ask this RN why she can not leave, patient easily redirected but gets upset about not being able to leave. patient only oriented to self. patient currently wearing 3lNC which is baseline for her. patient hs multiple snacks at bedside ie chips, candy that she eats through out the day, patient only eats small portions of lunch meal despite coaching from family to eat. patient keeps making statements when she is told she can not leave due to safety that she cant wait to
[2024-10-22 16:14] VITALS: BP 118/67; PULSE 97; RESP 20; TEMP 37.1; O2SAT 96
[2024-10-22 18:20] VITALS: BP 123/74; PULSE 83; RESP 20; TEMP 37.2; O2SAT 97
--- NOTE | 2024-10-22 18:21 | PC.NURSE ---
patient refused dinner tray, patients daughter brought her dinner from home.
--- NOTE | 2024-10-22 19:20 | MHC.EDTECH ---
This tech took over care of pt at 1900,rounded and introduced self to pt,pt appears comfortable,camera in place for safety,call rivera in reach
[2024-10-22] MEDS: QUEtiapine Fumarate 25 MG TABLET PO (20:32)
[2024-10-22] MEDS: Melatonin 3 MG TABLET 9 MG PO (20:32)
[2024-10-22] MEDS: Donepezil HCl 5 MG TABLET PO (20:32)
[2024-10-22 20:34] VITALS: BP 132/69; PULSE 78; RESP 20; TEMP 36.9; O2SAT 96
--- NOTE | 2024-10-22 21:10 | PC.NURSE ---
pt resting comfortably in bed, medicated per MAR, daughter requested melatonin for pt who told her she did not sleep last night. pt getting anxious and keeps asking to leave, redirected as needed but has not left her bed
--- NOTE | 2024-10-22 22:57 | PC.NURSE ---
pt assisted to commode and back into bed
--- NOTE | 2024-10-23 00:14 | MHC.EDTECH ---
Rounded completed,patient is sleeping,camera in place for safety,call rivera in reach
[2024-10-23 03:55] VITALS: RESP 16
--- NOTE | 2024-10-23 03:58 | MHC.EDTECH ---
Rounds completed,pt is sleeping,resp.rate WNL, camera in place for safety
[2024-10-23 06:00] VITALS: BP 104/65; PULSE 73; RESP 16; TEMP 37.2; O2SAT 99
--- NOTE | 2024-10-23 06:14 | MHC.EDTECH ---
Rounds and vitals completed,patient appears comfortable,call rivera in reach,camera in place for safety
--- NOTE | 2024-10-23 06:14 | PC.NURSE ---
pt rested comfortably throughout the night after melatonin was given. no apparent distress noted, breathing even and unlabored
[2024-10-23] MEDS: Sertraline HCL 50 MG TABLET PO (09:23)
--- NOTE | 2024-10-23 09:25 | PC.NURSE ---
Awaiting Breo, Spiriva, and Megace per pharmacy at this time.
--- NOTE | 2024-10-23 10:05 | MHC.CM.ED ---
Patient remains in ER[facility] does not have an appropriate apartment available for patient because they don't have a dementia unit. Referral was broadcasted to all SNF within [address]. [facility] is following but they don't have any beds available at this time. [facility] is reviewing but is requesting a LTC financial form be completed. Still waiting to hear from Christal Xiao. Continue to monitor for d/c needs.
--- NOTE | 2024-10-23 10:16 | PC.NURSE ---
Called pharmacy again. Still awaiting Roxana Delgado, and Jani at this time.
[2024-10-23] MEDS: Megestrol Acetate 20 MG TABLET 40 MG PO (10:30)
--- NOTE | 2024-10-23 10:37 | PC.NURSE ---
Respiratory meds. left at bedside for respiratory therapist. RT notified
[2024-10-23] MEDS: Fluticasone/Vilanterol 200/25 BLST.W.DEV 1 PUFF INHALE (11:13)
[2024-10-23] MEDS: Tiotropium Bromide 2.5 mcg 1 PUFF/2.5 MCG MIST.INHAL INHALE (11:13)
[2024-10-23 11:17] VITALS: PULSE 71; RESP 16; O2SAT 98
--- NOTE | 2024-10-23 11:28 | PC.NURSE ---
Pt. provided banana to eat as requested
--- NOTE | 2024-10-23 13:46 | MHC.CM.ED ---
Addendum entered by Jud Soliz 10/23/24 15:39: [facility] is able to offer a bed. Cuca aware. Level 1 completed. [facility]. Addendum entered by Jud Soliz 10/23/24 14:42: [facility] doesn't have a LTC bed. [facility] is reviewing to see if they are able to offer a bed. Original Note: LTC questionnaire completed by Cuca. [facility] Continue to monitor for d/c needs.
[2024-10-23 16:05] VITALS: BP 124/70; PULSE 92; RESP 16; TEMP 36.8; O2SAT 92
[2024-10-23 19:48] VITALS: BP 125/71; PULSE 86; RESP 18; O2SAT 93
--- NOTE | 2024-10-23 19:50 | PC.NURSE ---
pt found with her o2 off, eating dioritos sat 79%. pt o2 applied 3L and sat improved to 93%. Pt has hospital pants on but not a gown. pt changed and is a flight risk..
--- NOTE | 2024-10-23 19:53 | PC.NURSE ---
pt has a green elopment band on and camera is on. pt is calm and cooperative. pt changed over into gown.
[2024-10-23] MEDS: Donepezil HCl 5 MG TABLET PO (21:08)
[2024-10-23] MEDS: QUEtiapine Fumarate 25 MG TABLET PO (21:08)
--- NOTE | 2024-10-24 00:10 | PC.NURSE ---
pt has her belongings at bedside, pt keeps her hospital pants on but removes the gown and puts her own shirt on. Pt has been told many times and is forgetful and redresses herself and takes her o2 off and forgets to put it back on.
--- NOTE | 2024-10-24 00:47 | PC.NURSE ---
pt got out of bed and started to walk out of her room. pt easily redirected back to her room. pt used the bedside commode. pt calm and cooperative follows commands but is forgetful. pt reoriented to her room, call rivera, bedside commode and the need to keep her nc on.
--- NOTE | 2024-10-24 05:32 | PC.NURSE ---
pt has been sleeping with her o2 on. no s/s of distress, pt comfortable. camera present in room due to flight risk.
[2024-10-24 06:18] VITALS: BP 119/66; PULSE 84; RESP 16; TEMP 37.2; O2SAT 94
[2024-10-24] MEDS: Megestrol Acetate 20 MG TABLET 40 MG PO (09:05)
[2024-10-24] MEDS: Sertraline HCL 50 MG TABLET PO (09:05)
[2024-10-24 09:34] VITALS: BP 138/70; PULSE 97; RESP 19; O2SAT 93
--- NOTE | 2024-10-24 15:56 | MHC.CM.PN ---
Addendum entered by Ilda Brito 10/24/24 16:18: PER FS, PT'S CURRENT INSURANCE HAS THE SAME BENEFIT MH STANDARD. REFERRALS UPDATED WITH THIS INFORMATION. Original Note: [employer] HAS FINANCIALLY DECLINED PT. [facility] UPDATED ON NEED TO CONVERT MH PLAN TO ONE THAT WILL ACCOMMODATE LTC. FINANCIAL COUNSELOR HAS CONTACTED DAUGHTER TO START PROCESS. CM WILL CONTINUE TO FOLLOW.
--- NOTE | 2024-10-24 20:06 | PC.NURSE ---
Report taken from Jagruti LOPEZ assumed care of pt at 1930. Pt A&O, confused. Skin pwd respirations even unlabored. Needing continuous reminders to keep O2 on. Ambulatory to bathroom with O2, steady gait. Returned to room without incident. Elopement band in place, camera on in room. Call rivera within reach, will continue to monitor.
[2024-10-24 20:11] VITALS: BP 163/81; PULSE 88; RESP 16; TEMP 37.6; O2SAT 96
[2024-10-24] MEDS: Donepezil HCl 5 MG TABLET PO (20:17)
[2024-10-24] MEDS: QUEtiapine Fumarate 25 MG TABLET PO (20:17)
[2024-10-25 06:11] VITALS: BP 101/86; PULSE 78; RESP 18; TEMP 37.7; O2SAT 97
--- NOTE | 2024-10-25 06:24 | MHC.EDTECH ---
Patient refused to change into hospital attire
--- NOTE | 2024-10-25 06:45 | PC.NURSE ---
Assumed care of pt at 2300. Patient appears confused, needing frequent reorientation. Resting comfortably, call rivera within reach. VSS, will continue to monitor.
[2024-10-25] MEDS: Fluticasone/Vilanterol 200/25 BLST.W.DEV 1 PUFF INHALE (08:13)
[2024-10-25 08:17] VITALS: PULSE 76; RESP 18; O2SAT 96
[2024-10-25] MEDS: Tiotropium Bromide 2.5 mcg 1 PUFF/2.5 MCG MIST.INHAL INHALE (08:19)
[2024-10-25] MEDS: Sertraline HCL 50 MG TABLET PO (08:55)
[2024-10-25] MEDS: Megestrol Acetate 20 MG TABLET 40 MG PO (08:55)
[2024-10-25 11:31] VITALS: BP 126/69; PULSE 79; RESP 16; TEMP 37.1; O2SAT 94
[2024-10-25 16:12] VITALS: BP 129/85; PULSE 62; RESP 16; TEMP 36.3; O2SAT 95
--- NOTE | 2024-10-25 19:30 | PC.NURSE ---
Patient transferred back to main ED room 14, Camera sitter access re-established, elopement band remains in place, patient resting quietly on hospital bed.
[2024-10-25 20:55] VITALS: BP 122/74; PULSE 95; RESP 16; TEMP 37.2; O2SAT 95
[2024-10-25] MEDS: Donepezil HCl 5 MG TABLET PO (20:56)
[2024-10-25] MEDS: QUEtiapine Fumarate 25 MG TABLET PO (20:56)
--- NOTE | 2024-10-26 03:37 | PC.NURSE ---
This typewriter repairer assumed care of this Pt st 2300. Pt A&Ox2, forgetful. Pt ambulated to BR with oxygen tank. Pt was found in the bathroom hovering over, states out of breath . Pt was able to ambulated back to room. Pt states she thinks she has COPD. Pt breathing improved after sitting up. Pt given vanilla pudding per request. Camera in place. Plan of care on going.
[2024-10-26 03:46] VITALS: BP 107/61; PULSE 86; RESP 18; TEMP 37.5; O2SAT 95
--- NOTE | 2024-10-26 07:29 | PC.NURSE ---
Care of Pt assumed at change of shift. Pt currently eating breakfast. Pt will be transferring to the ED Overflow unit. Call placed to RN Sheila to RN to RN report. Pt will be proceeding to ED Overflow bed 6.
[2024-10-26] MEDS: Fluticasone/Vilanterol 200/25 BLST.W.DEV 1 PUFF INHALE (08:17)
[2024-10-26] MEDS: Tiotropium Bromide 2.5 mcg 1 PUFF/2.5 MCG MIST.INHAL INHALE (08:18)
[2024-10-26 08:25] VITALS: PULSE 93; RESP 18; O2SAT 92
--- NOTE | 2024-10-26 09:11 | MHC.EDTECH ---
this tech assumed care of pt at 0700, pt provided breakfast prior to transport to ED overflow, pt seems agitated about multiple things including her room being too cold, her daughter not speaking to her, wanting to go home. pt is overall upset. this tech tried to intervene and help her feel more comfortable, warm blankets offered, fluids provided, and michelle offered, pt denied michelle however seems to be a little bit relaxed at this time. pt assisted to commode at bedside, voided well, all needs met at this time.
[2024-10-26] MEDS: Sertraline HCL 50 MG TABLET PO (09:28)
[2024-10-26] MEDS: Megestrol Acetate 20 MG TABLET 40 MG PO (09:28)
--- NOTE | 2024-10-26 12:35 | MHC.EDTECH ---
pt refused lunch tray, only took the justine evon, daughter at bedside w/ snacks
[2024-10-26 15:49] VITALS: BP 132/68; PULSE 102; RESP 16; TEMP 36.9; O2SAT 95
[2024-10-26] MEDS: QUEtiapine Fumarate 25 MG TABLET PO (20:06)
[2024-10-26] MEDS: Donepezil HCl 5 MG TABLET PO (20:06)
[2024-10-26 20:10] VITALS: BP 113/70; PULSE 103; RESP 20; TEMP 38.2; O2SAT 93
[2024-10-26 22:00] VITALS: BP 123/62; PULSE 95; RESP 44; TEMP 38.6; O2SAT 94
[2024-10-26] MEDS: Acetaminophen 325 MG TABLET 650 MG PO (22:04)
--- NOTE | 2024-10-26 22:12 | PC.NURSE ---
RAMEZ Carrillo made aware of pts temp of 101.4, medicated to mar
[2024-10-26 23:25] LABS: Influenza A PCR POSITIVE (Negative); Influenza B PCR NEGATIVE (Negative); Resp Syncy Virus RNA Qual PCR NEGATIVE (Negative); SARS COV2 PCR INHOUSE NEGATIVE (Negative)
[2024-10-26 23:38] VITALS: BP 104/61; PULSE 80; RESP 16; TEMP 37.9; O2SAT 95
[2024-10-27 03:05] VITALS: RESP 18; TEMP 37.9
--- NOTE | 2024-10-27 04:32 | PC.NURSE ---
Addendum entered by Sujatha Harris RN 10/27/24 06:04: Patient assisted to bedside commode to void. Odorless cyu with good amount voided. Claims Adjuster attempted to remove heavy blanket and educate pt on fever/flu and reapply ice on return to bed though pt refused and was observed removing the ice packs and replacing her blanket. Addendum entered by Sujatha Harris RN 10/27/24 05:52: Patient febrile on morning vitals, temp now 101.9 po. Other vitals are stable. Breathing is even and unlabored without distress. No current orders for tylenol or prns. Covering Dr. Gaffney made aware. No new orders at this time. Ice packs applied to axilla. Original Note: Assumed care of patient at 23:15. Pt has hx dementia, alerts to voice though is disoriented/confused. Fever prior to assuming care and had received tylenol. Pt reassessed on assuming care and full set of vitals obtained, temp improved to 100.3 po, RR improved to 16-18 br/min. Has remained afebrile. Breathing has been even and unlabored without distress. Respiratory panel back during software writer's care showing +Flu. Droplet precautions placed. Vitals and respiratory panel results were discussed with covering provider Brooklyn Carrillo. No new orders. Continues on 2L nc as on assuming care with spo2 maintained 95% and above. This appears to be the pt's baseline o2 requirement for copd per chart review. No n/v. +radial and dp pulses. CXR obtained as per prior order. In-room camera, bed alarm, and high falls measures continue. Plan of care continues, patient awaiting CM/placement.
[2024-10-27 05:33] VITALS: BP 123/71; PULSE 97; RESP 18; TEMP 38.8; O2SAT 94
--- NOTE | 2024-10-27 07:51 | MHC.EDTECH ---
Patient refused breakfast. Resting quietly. Call rivera placed within reach.
[2024-10-27 08:21] VITALS: PULSE 96; RESP 18; O2SAT 91
[2024-10-27] MEDS: Fluticasone/Vilanterol 200/25 BLST.W.DEV 1 PUFF INHALE (08:21)
[2024-10-27] MEDS: Tiotropium Bromide 2.5 mcg 1 PUFF/2.5 MCG MIST.INHAL INHALE (08:21)
--- NOTE | 2024-10-27 09:28 | PC.NURSE ---
Awaiting missing Megestrol per pharmacy at this time.
[2024-10-27 09:49] VITALS: BP 110/61; PULSE 96; RESP 18; TEMP 37.7; O2SAT 93
[2024-10-27] MEDS: Sertraline HCL 50 MG TABLET PO (09:49)
--- NOTE | 2024-10-27 11:52 | PC.NURSE ---
Still awaiting Megestrol per pharmacy at this time.
--- NOTE | 2024-10-27 13:32 | MHC.CM.PN ---
Pt remains in ED overflow, still awaiting a bed offer for LTC on a memory impaired unit. It was brought to this CM's attention that the pt only has a STR benefit with her insurance plan, and will need a senior care conversion application submitted. This CM contacted [facility] [place] counselor who will work on this. This CM spoke to pts daughter/HCP Cuca to update her. Cuca was also made aware that we will have to expand the referral further out from this area in order to find an appropriate bed.
[2024-10-27 16:31] VITALS: PULSE 104; RESP 16; TEMP 37.9; O2SAT 94
--- NOTE | 2024-10-27 16:35 | MHC.EDTECH ---
This pct assumed care of Patient at 1500 ,vitals taken ,Patient had a large bowel movement ,no apparent distress noted ,Plan of care continue .
[2024-10-27] MEDS: Donepezil HCl 5 MG TABLET PO (20:31)
[2024-10-27] MEDS: QUEtiapine Fumarate 25 MG TABLET PO (20:31)
[2024-10-27 20:59] VITALS: PULSE 101; RESP 16; TEMP 37.4; O2SAT 94
[2024-10-28 06:00] VITALS: BP 122/62; PULSE 96; RESP 17; TEMP 37.7; O2SAT 93
--- NOTE | 2024-10-28 06:40 | PC.NURSE ---
pt rang multiple times throughout the night, often not remembering what she rang for. no apparent distress, pt remains comfortable in bed. room is warm
[2024-10-28] MEDS: Fluticasone/Vilanterol 200/25 BLST.W.DEV 1 PUFF INHALE (07:29)
[2024-10-28] MEDS: Tiotropium Bromide 2.5 mcg 1 PUFF/2.5 MCG MIST.INHAL INHALE (07:29)
[2024-10-28 07:30] VITALS: PULSE 87; RESP 19; O2SAT 94
[2024-10-28] MEDS: Megestrol Acetate 20 MG TABLET 40 MG PO (10:22)
[2024-10-28] MEDS: Sertraline HCL 50 MG TABLET PO (10:22)
--- NOTE | 2024-10-28 10:23 | PC.NURSE ---
delay in medication administration d/t medication not being readily available in [facility]. medication delivered from pharmacy/administered per provider order.
[2024-10-28 16:21] VITALS: BP 122/60; PULSE 89; RESP 16; TEMP 37.2; O2SAT 94
--- NOTE | 2024-10-28 19:42 | PC.NURSE ---
this rn assumed care of pt, pt a&ox1, respirations even and unlabored, on 2L nasal cannula baseline, pt stand by assist to commode at this time.
[2024-10-28] MEDS: QUEtiapine Fumarate 25 MG TABLET PO (20:33)
[2024-10-28] MEDS: Donepezil HCl 5 MG TABLET PO (20:33)
--- NOTE | 2024-10-28 20:35 | PC.NURSE ---
pt medicated per mar, tolerated whole well with water.
[2024-10-29 04:37] VITALS: BP 120/68; PULSE 94; RESP 16; TEMP 37.6; O2SAT 92
[2024-10-29] MEDS: Fluticasone/Vilanterol 200/25 BLST.W.DEV 1 PUFF INHALE (07:46)
[2024-10-29] MEDS: Tiotropium Bromide 2.5 mcg 1 PUFF/2.5 MCG MIST.INHAL INHALE (07:46)
[2024-10-29 08:00] VITALS: BP 109/56; PULSE 90; RESP 36; TEMP 37.3; O2SAT 91
[2024-10-29] MEDS: Sertraline HCL 50 MG TABLET PO (08:02)
[2024-10-29] MEDS: Megestrol Acetate 20 MG TABLET 40 MG PO (08:02)
[2024-10-29 14:00] VITALS: BP 116/59; PULSE 89; RESP 40; TEMP 37.1; O2SAT 92
[2024-10-29] MEDS: QUEtiapine Fumarate 25 MG TABLET PO (21:18)
[2024-10-29] MEDS: Donepezil HCl 5 MG TABLET PO (21:18)
[2024-10-29 21:38] VITALS: BP 118/70; PULSE 90; RESP 36; TEMP 37.2; O2SAT 2
--- NOTE | 2024-10-29 21:51 | PC.NURSE ---
pt resting in bed watching tv, requesting to leave, this RN informed pt that she has the flu and needs to stay to feel better. pt content with that response.
[2024-10-30 06:00] VITALS: BP 113/63; PULSE 76; RESP 15; TEMP 37.1; O2SAT 95
[2024-10-30 07:51] VITALS: PULSE 77; RESP 18; O2SAT 94
[2024-10-30] MEDS: Tiotropium Bromide 2.5 mcg 1 PUFF/2.5 MCG MIST.INHAL INHALE (07:51)
[2024-10-30] MEDS: Fluticasone/Vilanterol 200/25 BLST.W.DEV 1 PUFF INHALE (07:51)
[2024-10-30] MEDS: Megestrol Acetate 20 MG TABLET 40 MG PO (08:09)
[2024-10-30] MEDS: Sertraline HCL 50 MG TABLET PO (08:09)
--- NOTE | 2024-10-30 09:21 | MHC.CM.ED ---
Addendum entered by Jud Soliz 10/30/24 15:00: Patient's daughter/HCP, Cuca, updated via telephone. Original Note: Patient remains in ER overflow. Per Thi [facility] Financial Counselor, LTC application was submitted to [facility]. Daughter/HCP, Cuca, is in the process of obtaining bank statements. Continue to monitor for d/c needs.
[2024-10-30 11:27] VITALS: BP 112/70; PULSE 78; RESP 20; TEMP 37.1; O2SAT 92
--- NOTE | 2024-10-30 15:26 | PC.NURSE ---
Pt requesting a breathing treatment, noted to be able to speak in full sentences.RT at bedside.
[2024-10-30 15:34] VITALS: PULSE 79; RESP 18; O2SAT 95
[2024-10-30] MEDS: Albuterol Sulfate (0.083%) 2.5 MG/3 ML VIAL.NEB INHALE (15:35)
[2024-10-30 18:32] VITALS: BP 118/76; PULSE 86; RESP 24; TEMP 36.9; O2SAT 92
[2024-10-30] MEDS: QUEtiapine Fumarate 25 MG TABLET PO (20:34)
[2024-10-30] MEDS: Donepezil HCl 5 MG TABLET PO (20:34)
[2024-10-30 21:10] VITALS: BP 114/60; PULSE 89; RESP 16; TEMP 37.1; O2SAT 92
--- NOTE | 2024-10-30 23:29 | MHC.EDTECH ---
This tech took over care of pt at 2300,rounded and introduced self to pt,patient got up to commode,urinated a large amount,pt is back in bed resting quietly, call rivera in reach,camera in place for safety
--- NOTE | 2024-10-31 03:25 | MHC.EDTECH ---
Rounds completed ,patient is resting quietly,call rivera in reach,camera in place for safety
[2024-10-31 06:00] VITALS: BP 132/72; PULSE 68; RESP 20; TEMP 37.2; O2SAT 98
--- NOTE | 2024-10-31 06:36 | MHC.EDTECH ---
Rounds and vitals completed,pt got up to commode,urinated a moderate amount,patient is resting quietly,call rivera in reach
[2024-10-31 08:42] VITALS: PULSE 82; RESP 16; O2SAT 95
[2024-10-31] MEDS: Tiotropium Bromide 2.5 mcg 1 PUFF/2.5 MCG MIST.INHAL INHALE (08:44)
[2024-10-31] MEDS: Fluticasone/Vilanterol 200/25 BLST.W.DEV 1 PUFF INHALE (08:44)
[2024-10-31] MEDS: Sertraline HCL 50 MG TABLET PO (09:53)
[2024-10-31] MEDS: Megestrol Acetate 20 MG TABLET 40 MG PO (09:53)
--- NOTE | 2024-10-31 11:00 | PC.NURSE ---
Upon hourly rounding patient made a statement that she feels depressed and does not want to live like that but denied active thought of self harm. Patient states she is upset with her daughter for leaving her in the hospital and giving up on her. Patient appears withdrawn, will continue to monitor. Patient is also monitor by VMT.
--- NOTE | 2024-10-31 12:25 | MHC.CM.ED ---
Patient remains in ER. Received notification from security that Rudy Love is trying to visit patient. Rudy informed security he was on the phone with patient and that he knew she was in our ER. Went to waiting room to speak to Rudy. Explained Rudy would not be able to visit patient. Rudy inquired the reasoning. T/W explained he would have to speak to her daughter/HCP, Cuca. Rudy stated she revoked her as a HCP. T/W explained he could not see patient and he would have to speak to Cuca. Also explained the conversation was ending. Rudy walked out of ER and stated Clearly you didn't get my letter. Cuca, daughter/invoked HCP, made aware and appreciative that Rudy was denied visitation. He is a harness fitter that is a friend of patient's. He refuses to believe that patient does not have the capacity to make her own decisions, even though patient has documented dementia. Cuca requesting patient receive shower. T/W explained shower will be offered but will not be able to force patient to shower if she declines. Cuca verbalizes understanding. Continue to monitor for d/c needs.
--- NOTE | 2024-10-31 13:04 | MHC.EDTECH ---
This pct offered for patient to take a shower if she would like to ,the patient refused, patient states whats the point im alone no family visits me so who do i have to shower for. this pct explained taking a shower may make you feel better but the patient stated maybe later. RN Aware
[2024-10-31 15:27] VITALS: BP 97/53; PULSE 75; RESP 16; TEMP 36.8; O2SAT 95
--- NOTE | 2024-10-31 15:28 | PC.NURSE ---
Assumed care of this patient at 1500, patient unhappy that TV does not work, will ask again for plant ops to evaluate TV. Isolation precautions remain. VSS. Resting quietly in hospital bed at this time.
[2024-10-31] MEDS: QUEtiapine Fumarate 25 MG TABLET PO (21:01)
[2024-10-31] MEDS: Donepezil HCl 5 MG TABLET PO (21:01)
--- NOTE | 2024-10-31 21:59 | PC.NURSE ---
Patient relocated to [facility] 4 at change of shift (19:00), transported by this RN. This RN assumed care of patient from previous RN. Remains on 4L via Nasal Cannula. Remains dementia unit bedsearch, PT/CM, elopement bracelet remains in place on right wrist. Camera #[address]. [address] due to Flu+ status. Happy with working TV at this time. Snacks provided from home at bedside. Call rivera within reach. Care continues with this RN.
[2024-10-31 23:12] VITALS: BP 113/56; PULSE 95; RESP 24; TEMP 36.4; O2SAT 94
[2024-11-01 06:30] VITALS: BP 103/57; PULSE 71; RESP 24; TEMP 36.4; O2SAT 94
[2024-11-01] MEDS: Tiotropium Bromide 2.5 mcg 1 PUFF/2.5 MCG MIST.INHAL INHALE (10:35)
[2024-11-01] MEDS: Megestrol Acetate 20 MG TABLET 40 MG PO (10:35)
[2024-11-01] MEDS: Fluticasone/Vilanterol 200/25 BLST.W.DEV 1 PUFF INHALE (10:36)
[2024-11-01] MEDS: Sertraline HCL 50 MG TABLET PO (10:36)
[2024-11-01 14:58] VITALS: BP 115/64; PULSE 72; RESP 22; TEMP 36.2; O2SAT 90
--- NOTE | 2024-11-01 19:24 | PC.NURSE ---
Pt alert to self, no signs of distress. Pt sitting in bed, watching tv. Pt continuously asking whats going to happen . Pt educated on plan of care. Plan of care ongoing.
[2024-11-01] MEDS: Donepezil HCl 5 MG TABLET PO (20:30)
[2024-11-01] MEDS: QUEtiapine Fumarate 25 MG TABLET PO (20:30)
--- NOTE | 2024-11-01 20:35 | PC.NURSE ---
Pt confused, continues to ask what am I doing here Pt educated on plan of care Pt medicated per mar Pt educated on use of the TV remote Plan of care ongoing.
[2024-11-02 08:29] VITALS: BP 120/62; PULSE 60; RESP 14; TEMP 36.4; O2SAT 92
[2024-11-02 09:23] VITALS: PULSE 78; RESP 16; O2SAT 95
[2024-11-02] MEDS: Tiotropium Bromide 2.5 mcg 1 PUFF/2.5 MCG MIST.INHAL INHALE (09:23)
[2024-11-02] MEDS: Fluticasone/Vilanterol 200/25 BLST.W.DEV 1 PUFF INHALE (09:23)
[2024-11-02] MEDS: Megestrol Acetate 20 MG TABLET 40 MG PO (09:53)
[2024-11-02] MEDS: Sertraline HCL 50 MG TABLET PO (09:53)
--- NOTE | 2024-11-02 10:00 | PC.NURSE ---
pt alert to person/place, rr equal/non labored, lungs clear/diminished, fall precautions/camera wrist band intact, pt currently denying pain/discomfort, vss, 2L O2 NC currently as RT turned down the O2 after giving them their AM medications. flu precautions intact, pt awaiting placement.
[2024-11-02 14:00] VITALS: BP 138/82; PULSE 75; RESP 18; TEMP 37.1; O2SAT 94
--- NOTE | 2024-11-02 16:03 | PC.NURSE ---
pt has been assisted oob to commode- she has been sob when she gets oob, she rings often to make her needs known, pt asking repetitive questions today and has been unable to figure out how to turn channels on the TV requesting staff to do so. pt had no complaints of pain or discomfort at this time, fall precautions intact- pt safety camera in tact as well, call rivera within reach, plan of care ongoing
[2024-11-02] MEDS: hydrOXYzine HCL 25 MG TABLET PO (17:49)
--- NOTE | 2024-11-02 17:50 | PC.NURSE ---
pt medicated for anxiety per order
--- NOTE | 2024-11-02 18:14 | PC.NURSE ---
meals patient continues to refuse meal trays today in favor of snacks consisting of candy and chips and soda her family has brought in. pts daughter brought in home made meatballs which the patient is refusing to eat as well.
--- NOTE | 2024-11-02 18:33 | PC.NURSE ---
this nurse noted that the patient was speaking in shorter sentences, RT was called for an updraft as the patient appeared SOB, lungs remained clear.
[2024-11-02 18:45] VITALS: PULSE 76; RESP 16; O2SAT 92
[2024-11-02] MEDS: Albuterol Sulfate (0.083%) 2.5 MG/3 ML VIAL.NEB INHALE (18:45)
[2024-11-02] MEDS: QUEtiapine Fumarate 25 MG TABLET PO (20:29)
[2024-11-02] MEDS: Donepezil HCl 5 MG TABLET PO (20:29)
[2024-11-02 20:35] VITALS: BP 138/78; PULSE 79; RESP 20; TEMP 37.2; O2SAT 93
--- NOTE | 2024-11-02 22:37 | PC.NURSE ---
Patient is alert, oriented to self and place. VSS, O2 Sat 92-94% at rest on 4 LPM NC. Patient's O2 Sat drops to 89-90% when OOB to use bedside commode, patient quickly recovers when returns in bed. Patient medicated per DEC. She offers no complaints at this time, call rivera in reach, plan of care ongoing.
[2024-11-03 00:25] VITALS: BP 133/72; PULSE 100; RESP 18; TEMP 37.1; O2SAT 92
[2024-11-03 06:00] VITALS: BP 113/56; PULSE 71; RESP 16; TEMP 36.7; O2SAT 92
[2024-11-03] MEDS: Fluticasone/Vilanterol 200/25 BLST.W.DEV 1 PUFF INHALE (07:18)
[2024-11-03] MEDS: Tiotropium Bromide 2.5 mcg 1 PUFF/2.5 MCG MIST.INHAL INHALE (07:18)
[2024-11-03 07:20] VITALS: PULSE 72; RESP 18; O2SAT 93
[2024-11-03] MEDS: Sertraline HCL 50 MG TABLET PO (09:17)
[2024-11-03] MEDS: Megestrol Acetate 20 MG TABLET 40 MG PO (09:17)
--- NOTE | 2024-11-03 12:33 | MHC.CM.ED ---
Patient remains in ER overflow. Spoke with patient's daughter, Cuca, via telephone. Update given in regards to [facility] reaching out to her about patient's financials. Cuca verbalized understanding. Received notification from [facility] that they are able to offer a bed and are in the process of trying to obtain insurance auth from [place]. Jagruti from [facility] made aware that patient will hopefully be transferring to [facility]. Continue to monitor for d/c needs.
[2024-11-03 14:12] VITALS: BP 123/63; PULSE 77; RESP 16; TEMP 37; O2SAT 92
--- NOTE | 2024-11-03 15:35 | PC.NURSE ---
Accepted care of this patient at 1500, patient resting quietly on hospital bed at this time, continues to be confused as to why she is still here. Called VMT to confirm they are watching patient d/t flight risk. They did not have patient on their cameras, camera [address], will be watching patient now. VMT lead Rakesh came to overflow to confirm camera placement.
--- NOTE | 2024-11-03 17:14 | PC.NURSE ---
Family visited patient, gave patient her personal clothes from home, patient changed into them with family unknown to staff and now refuses to change back in hospital attire. Elopement band remains on and camera watch continues.
[2024-11-03] MEDS: QUEtiapine Fumarate 25 MG TABLET PO (21:05)
[2024-11-03] MEDS: Donepezil HCl 5 MG TABLET PO (21:05)
[2024-11-03 21:10] VITALS: BP 137/102; PULSE 73; RESP 22; TEMP 36.7; O2SAT 93
[2024-11-04] MEDS: Tiotropium Bromide 2.5 mcg 1 PUFF/2.5 MCG MIST.INHAL INHALE (08:26)
[2024-11-04] MEDS: Fluticasone/Vilanterol 200/25 BLST.W.DEV 1 PUFF INHALE (08:26)
[2024-11-04 08:28] VITALS: PULSE 75; RESP 16; O2SAT 91
--- NOTE | 2024-11-04 09:04 | MHC.CM.ED ---
Patient remains in ER overflow. Insurance auth has been obtained by Nadira. Patient can leave at 9am. Frederic NOGUEIRA booked. [facility] with chart. Patient, daughter/HCP Leda Thurman RN and Berta MYRICK aware. Cuca will meet patient at facility. Continue to monitor for d/c needs.
[2024-11-04] MEDS: Sertraline HCL 50 MG TABLET PO (09:30)
[2024-11-04] MEDS: Megestrol Acetate 20 MG TABLET 40 MG PO (09:30)
[2024-11-04 09:52] VITALS: BP 0/0; PULSE 0; RESP 0; TEMP -17.7; TEMP 0; O2SAT 0
== END 2024-11-04 09:55 | disposition skilled nursing facility (03) ==
PROVIDERS: Physician Assistant Medical; Emergency Provider Emergency Medicine; PCP Internal Medicine
DX: G30.9 Alzheimer's disease, unspecified (principal); F02.80 Dementia in other diseases classified elsewhere, unspecified severity, without behavioral disturbance, psychotic disturbance, mood disturbance, and anxiety; R06.02 Shortness of breath; R06.00 Dyspnea, unspecified; J44.9 Chronic obstructive pulmonary disease, unspecified; R09.02 Hypoxemia; F17.200 Nicotine dependence, unspecified, uncomplicated; Z79.899 Other long term (current) drug therapy; Z03.818 Encounter for observation for suspected exposure to other biological agents ruled out
CPT/HCPCS: 0241U; 36415; 71045; 80048; 80076; 81001; 82803; 83605; 83880; 84484; 85025; 85610; 87040; 87086; 93005; 94640; 94664; 97162; 99285

== ENCOUNTER → 2024-10-17 16:38 | Outpatient (BNV) | payer OTHER, SELFPAY | PROVIDERS: Emergency Provider Emergency Medicine; PCP Internal Medicine; Visit Provider Social Worker | DX: G30.9 Alzheimer's disease, unspecified (principal); F02.80 Dementia in other diseases classified elsewhere, unspecified severity, without behavioral disturbance, psychotic disturbance, mood disturbance, and anxiety | CPT/HCPCS: 99285 ==

== ENCOUNTER → 2024-10-17 16:58 | Outpatient (BNV) | payer MEDICARE, SELFPAY | PROVIDERS: Emergency Provider Emergency Medicine; PCP Internal Medicine; Visit Provider Internal Medicine | DX: R06.02 Shortness of breath (principal); R94.31 Abnormal electrocardiogram [ECG] [EKG] | CPT/HCPCS: 93010 ==

== ENCOUNTER → 2024-10-27 | Outpatient (BNV) | payer MEDICARE, MEDICAID, SELFPAY | PROVIDERS: Emergency Provider Emergency Medicine; PCP Internal Medicine; Visit Provider Radiology Neuroradiology | DX: R91.8 Other nonspecific abnormal finding of lung field (principal) | CPT/HCPCS: 71045 ==

== ENCOUNTER → 2024-11-02 19:20 | Outpatient (BNV) | payer MEDICARE, MEDICAID, SELFPAY | PROVIDERS: Emergency Provider Emergency Medicine; PCP Internal Medicine; Visit Provider Radiology Diagnostic Radiology | DX: J43.9 Emphysema, unspecified (principal); J90 Pleural effusion, not elsewhere classified | CPT/HCPCS: 71045 ==

== ENCOUNTER 2025-01-06 13:43 | Outpatient (AMB) | payer MEDICARE, MEDICAID, SELFPAY ==
[2025-01-06 13:44] VITALS: BP 108/70; PULSE 106; O2SAT 95; BMI 16.2
--- NOTE | 2025-01-06 13:44 | A.OFFPC_ITS ---
Vital Signs 3 01/06/25 13:44 Height 5 ft 4 in Weight 94 lb 3 oz BMI 16.2 BP 108/70 Blood Pressure Location Lt brachial Position Sitting Pulse 106 H Pulse Source Pulse Oximeter Pulse Oximetry (%) 95 Oxygen Delivery Method Nasal Cannula Intake Visit Reasons: Annual PE Allergies No Known Allergies Allergy (Verified 01/06/25 13:45) Medication List - Last Reconciled 01/06/25 by Vito Beal MD albuterol sulfate 90 mcg/actuation 2 puffs inhalation Q4-6H PRN 30 days donepezil 5 mg PO BEDTIME fluticasone propion-salmeterol 250-50 mcg/dose (Wixela Inhub) 1 inh inhalation BID 30 days hydroxyzine HCl 25 mg PO BEDTIME ipratropium-albuterol 0.5 mg-3 mg(2.5 mg base)/3 mL 3 mL inhalation Q8H PRN 30 days megestrol 40 mg PO DAILY 90 days [nebulizer with all supplies As directed] quetiapine (Seroquel) 25 mg PO BEDTIME 90 days sertraline 50 mg PO DAILY tiotropium bromide (Spiriva with HandiHaler) 1 cap inhalation DAILY 30 days Tobacco use date assessed: 01/06/25 Dental Screening Dental Screen Date: 01/06/25 Did you have a dental visit in the last 12 months?: No Did you have a dental problem in the last 6 months where you did not have access to dental care?: No Was dental information given to patient?: Patient has dentist HPI Annual PE 2 HPI0 Details Patient is 59-year-old with end-stage lung disease cognitive disorde, Bipolar disorder, long history of alcohol use and smoking sent to Rehab center [facility] 11/04/2024 to 12/12/2024 and then transferred to assisted living where she is residing currently she came in today for visit with her daughter, need medications refilled until she get establish with new provider in january Mammogram is up-to-date Patient has declined to do colonoscopy OBGYN visit up-to-date She has already seen Gastroenterology for anorexia nervosa She is now oxygen dependent and is managed by learning development specialist She recently had PET scan done at [facility] we will get the report as there was a nodule in the lung She has drank alcohol daily for years History of noncompliance with medical treatment for years History of bipolar disorder with severe depression Refills needed for the following medications Current medications are sertraline 50 mg the morning and 25 at night Seroquel 25 mg night Donepezil 5 mg at night Hydroxyzine 25 mg b.i.d. for anxiety Valtrex 500 mg p.o. q.d. for recurrent cold sores Patient has developed eczema left ear that I have sent steroid cream to be applied at night We will hold Remeron Patient is also on Advair disc Albuterol inhaler DuoNeb every 8 hour Nicotine patch Tiotropium 18 mcg once a day In rehab center patient was able to gain some weight Lengthy discussion revolved around power of attorney at law For that patient's daughter need to involve her attorney at law Currently she has healthcare proxy for the patient During physical exam it was noted that patient has developed eczema left external ear That steroid cream has been sent to be applied at night until rash is resolved [facility] Medical History Pulmonary nodule Acute on chronic hypoxic respiratory failure Major neurocognitive disorder Encounter for assessment of decision-making capacity Cognitive impairment Nicotine dependence, cigarettes, uncomplicated Anal itching Vaginal discharge Colonoscopy refused Palpitation Colon cancer screening Non-compliance Anorexia nervosa Underweight Urinary urgency Eczema Mammogram declined Surgical History History of cervical biopsy History of tonsillectomy History of surgery on arm Family History Father Family history unknown Mother COPD (chronic obstructive pulmonary disease) Sister No problems noted. Sister COPD (chronic obstructive pulmonary disease) Social History Household Members: None Housing: Apartment Do you presently have visiting nurse or other home services: No Alcohol intake: current Alcohol intake frequency: 0-2 drinks per day Alcohol type: hard liquor Patient Tobacco Use Status: Current everyday Tobacco user Tobacco use type: Cigarette Cigarettes Per Day: 10 Years Smoked: onset 13yo, 1ppd x 45yrs, now1/2ppd - 40pyh Packs per year/per ci.00 e-Cigarette/Vaping Use: Never Used Second Hand Smoke Exposure: No Substance Use Type: Marijuana service: No Current occupational status: disabled Sexual orientation: Straight/Heterosexual Gender identity: Female Cognitive needs: No Hearing needs: No Vision needs: No Questionnaire Thrive Questionnaire Date Thrive assessed: 09/05/24 I am a: Patient What is your living situation today?: I have a steady place to live Within the past 12 months, did the food you bought not last and you didn't have the money to get more?: Never true Within the past 12 months, did you worry whether your food would run out before you got money to buy more?: Never true Do you have trouble paying for medicines?: No Do you have trouble getting transportation to medical appointments?: No Do you have trouble paying your heating and electricity bill?: No Do you have trouble taking care of your child, family member or friend?: No Do you have trouble with day-to-day activities such as bathing, preparing meals, shopping, managing finances, etc.?: Yes Are you currently unemployed and looking for a job?: No Are you interested in more education?: No Please select the resources that you would like help with: None Currently or been in a relationship where the following occur: No concerns reported THRIVE Score: 0 AUDIT C Alcohol Use Questionnaire (AUDIT-C) 1. How often do you have a drink containing alcohol?: 4 or more times a week 2. How many drinks containing alcohol do you have on a typical day when you are drinking?: 1 or 2 3. How often do you have six or more drinks on one occasion?: Never Total Score: 4 Score Reviewed/Action Taken: Yes STEVE-7 AMB Questionnaire STEVE-7 Date STEVE - 7 assessed: 09/05/24 Source: Developed by Drs. Ganga Bauer, Brooklyn Benedict, Dionte Puente and colleagues, with an educational albert from [employer]. Review of Systems Const Denies chills and Denies fever(s) ENT Denies epistaxis and Denies nasal discharge Card Denies chest pain Resp Denies chest congestion and Denies hemoptysis GI Denies diarrhea and Denies nausea Skin/Breast Denies rash Neuro Reports no additional complaints Psych Reports no additional complaints Endo Reports no additional complaints Physical exam (Primary Care) Vital Signs: Last Vital Signs Pulse 106 H 01/06/25 13:44 BP 108/70 01/06/25 13:44 Pulse Ox 95 01/06/25 13:44 Oxygen Delivery Method Nasal Cannula 01/06/25 13:44 BMI result Body Mass Index 16.2 Tobacco/Smoking Status: Tobacco use Status Tobacco use date assessed 01/06/25 01/06/25 13:49 Patient Tobacco Use Status Current everyday Tobacco 01/06/25 13:49 Tobacco use type Cigarette 01/06/25 13:49 e-Cigarette/Vaping Use Never Used 01/06/25 13:49 Thrive Assessment: Date of Thrive Assessment Date Thrive assessed 09/05/24 01/06/25 13:49 Currently or been in a relationship where the following occur: No concerns reported Const Other: Thin looking elderly female on oxygen with mild respiratory distress which is baseline for the patient General: cooperative Orientation/consciousness: patient oriented x3 HENMT Head: Yes normocephalic Head images: 2 1. 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, without behavioral disturbance G30.9; F02.80 Chronic hypoxic respiratory failure J96.11 Failure to thrive in adult R62.7 Bipolar disorder, in partial remission, most recent episode depressed F31.75 Active/Remission status: in partial remission Most recent bipolar episode type: depressed Anorexia nervosa F50.00 Oxygen dependent Z99.81 Eczema of left external ear H60.542 Assessment & Plan Assessment & Plan (1) Hospital discharge follow-up: Code(s): Z09 - Encounter for follow-up examination after completed treatment for conditions other than malignant neoplasm Category: Medical (2) 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 Presence of hypercapnia makes her cognitive impairment worse Last venous blood gas study showed pCO2 64 , down from 81 and 79. She has picture of compensated respiratory failure. She has poor understanding of using O2 properly, She came to the office with empty portable cylinder, When in the car she does smoke cigarettes along with using portable oxygen. THIS INDICATES THAT SHE IS RISK WHEN DRIVING , FOR HERSELF WELL FOR PUBLIC. Code(s): J96.11 - Chronic respiratory failure with hypoxia Category: Medical (4) Failure to thrive in adult: Code(s): R62.7 - Adult failure to thrive Category: Medical (5) Bipolar disorder: Comment: Patient has bipolar disorder with significant anxiety and also has some cognitive impairment. Code(s): F31.9 - Bipolar disorder, unspecified Category: Medical Qualifiers: Active/Remission status: in partial remission Most recent bipolar episode type: depressed Qualified Code(s): F31.75 - Bipolar disorder, in partial remission, most recent episode depressed (6) Anorexia nervosa: Code(s): F50.00 - Anorexia nervosa, unspecified Category: Medical (7) Oxygen dependent: Code(s): Z99.81 - Dependence on supplemental oxygen Category: Medical (8) Eczema of left external ear: Code(s): H60.542 - Acute eczematoid otitis externa, left ear Category: Medical Plan Patient is 59-year-old with end-stage lung disease cognitive disorde, Bipolar disorder, long history of alcohol use and smoking sent to Rehab center [facility] 11/04/2024 to 12/12/2024 and then transferred to assisted living where she is residing currently she came in today for visit with her daughter, need medications refilled until she get establish with new provider in january Mammogram is up-to-date Patient has declined to do colonoscopy OBGYN visit up-to-date She has already seen Gastroenterology for anorexia nervosa She is now oxygen dependent and is managed by learning development specialist She recently had PET scan done at [facility] we will get the report as there was a nodule in the lung She has drank alcohol daily for years History of noncompliance with medical treatment for years History of bipolar disorder with severe depression Refills needed for the following medications Current medications are sertraline 50 mg the morning and 25 at night Seroquel 25 mg night Donepezil 5 mg at night Hydroxyzine 25 mg b.i.d. for anxiety Valtrex 500 mg p.o. q.d. for recurrent cold sores Patient has developed eczema left ear that I have sent steroid cream to be applied at night We will hold Remeron Patient is also on Advair disc Albuterol inhaler DuoNeb every 8 hour Nicotine patch Tiotropium 18 mcg once a day In rehab center patient was able to gain some weight Lengthy discussion revolved around power of attorney at law For that patient's daughter need to involve her attorney at law Currently she has healthcare proxy for the patient During physical exam it was noted that patient has developed eczema left external ear That steroid cream has been sent to be applied at night until rash is resolved 42 minutes spent care this patient Orders: Orders 2 Complete Blood Count Auto Diff Today F02.80 - Dementia in other diseases classified elsewhere, unspecified severity, without behavioral disturbance, psychotic disturbance, mood disturbance, and anxiety, F31.75 - Bipolar disorder, in partial remission, most recent episode depressed, F50.00 - Anorexia nervosa, unspecified, G30.9 - Alzheimer's disease, unspecified, J96.11 - Chronic respiratory failure with hypoxia, Z00.01 - Encounter for general adult medical examination with abnormal findings, Z99.81 - Dependence on supplemental oxygen Comprehensive Met. Panel Today F02.80 - Dementia in other diseases classified elsewhere, unspecified severity, without behavioral disturbance, psychotic disturbance, mood disturbance, and anxiety, F31.75 - Bipolar disorder, in partial remission, most recent episode depressed, F50.00 - Anorexia nervosa, unspecified, G30.9 - Alzheimer's disease, unspecified, J96.11 - Chronic respiratory failure with hypoxia, Z00.01 - Encounter for general adult medical examination with abnormal findings, Z99.81 - Dependence on supplemental oxygen TSH reflex Free T4 Today F02.80 - Dementia in other diseases classified elsewhere, unspecified severity, without behavioral disturbance, psychotic disturbance, mood disturbance, and anxiety, F31.75 - Bipolar disorder, in partial remission, most recent episode depressed, F50.00 - Anorexia nervosa, unspecified, G30.9 - Alzheimer's disease, unspecified, J96.11 - Chronic respiratory failure with hypoxia, Z00.01 - Encounter for general adult medical examination with abnormal findings, Z99.81 - Dependence on supplemental oxygen Amylase Today F02.80 - Dementia in other diseases classified elsewhere, unspecified severity, without behavioral disturbance, psychotic disturbance, mood disturbance, and anxiety, F31.75 - Bipolar disorder, in partial remission, most recent episode depressed, F50.00 - Anorexia nervosa, unspecified, G30.9 - Alzheimer's disease, unspecified, J96.11 - Chronic respiratory failure with hypoxia, Z00.01 - Encounter for general adult medical examination with abnormal findings, Z99.81 - Dependence on supplemental oxygen Vitamin D 25-OH (D2 and D3) Today F02.80 - Dementia in other diseases classified elsewhere, unspecified severity, without behavioral disturbance, psychotic disturbance, mood disturbance, and anxiety, F31.75 - Bipolar disorder, in partial remission, most recent episode depressed, F50.00 - Anorexia nervosa, unspecified, G30.9 - Alzheimer's disease, unspecified, J96.11 - Chronic respiratory failure with hypoxia, Z00.01 - Encounter for general adult medical examination with abnormal findings, Z99.81 - Dependence on supplemental oxygen LDL Cholesterol Direct Today F02.80 - Dementia in other diseases classified elsewhere, unspecified severity, without behavioral disturbance, psychotic disturbance, mood disturbance, and anxiety, F31.75 - Bipolar disorder, in partial remission, most recent episode depressed, F50.00 - Anorexia nervosa, unspecified, G30.9 - Alzheimer's disease, unspecified, J96.11 - Chronic respiratory failure with hypoxia, Z00.01 - Encounter for general adult medical examination with abnormal findings, Z99.81 - Dependence on supplemental oxygen Medications: New 2 valacyclovir 500 mg PO DAILY 90 tabs 0RF clobetasol 0.05% 1 appl topical BEDTIME PRN 30 grams 0RF Left external ear eczema 30 days hydroxyzine HCl 25 mg PO BID 60 tabs 1RF 30 days Changed 2 From sertraline 50 mg PO DAILY 90 tabs 1RF F33.9 - Major depressive disorder, recurrent, unspecified To sertraline orally daily; 1 tablet in the morning and half at night 135 tabs 1RF 90 days F33.9 - Major depressive disorder, recurrent, unspecified Refilled 2 quetiapine (Seroquel) 25 mg PO BEDTIME 90 tabs 0RF 90 days donepezil 5 mg PO BEDTIME 90 tabs 0RF
--- OUTSIDE RECORDS SUMMARY | 2025-01-06 16:43 | XMS_ITS | Referral Summary ---
Author Organization [facility] Address [address] [place] [address] Care Team Providers Care Sales Promotion Director Name Role Phone Vito Beal Primary Care Provider [phone] Encounters Date Type Department Care Team Description 11/05/2024 11:53 AM EST - 11/08/2024 6:54 PM EST Hospital Encounter [address] [address] Мария Rowland MD Busuito, Brandon C, MD Mohammed, Farrukh, MD Takla, Steven Greene MD Shortness of breath (Primary Dx) Discharge Disposition: [facility] (03) from Last 3 Months Allergies No known active allergies Medications donepeziL (ARICEPT) 5 mg tablet Take 5 mg by mouth nightly. Active megestroL (MEGACE) 40 mg tablet Take 40 mg by mouth once a day. Active QUEtiapine (SEROquel) 25 mg tablet Take 25 mg by mouth nightly. Active sertraline (ZOLOFT) 50 mg tablet Take 50 mg by mouth once a day. Active albuterol (PROAIR HFA,VENTOLIN HFA) 90 mcg inhaler Inhale 2 puffs by mouth every 4 hours as needed for wheezing or shortness of breath. 4 Active Advair Diskus 250-50 mcg/dose inhaler Inhale 1 puff by mouth 2 times a day. 5 Active ipratropium-albu teroL (DUO-NEB) 0.5-2.5 mg/3 mL nebulizer solution Inhale 3 mL via nebulizer every 8 hours as needed for wheezing. 4 Active acetaminophen (TYLENOL) 325 mg tablet Take 650 mg by mouth every 6 hours as needed for pain or fever. Active bisacodyL (DULCOLAX) 10 mg suppository Insert 10 mg into the rectum daily as needed for constipation. --Use 2nd- if Milk of Mag Susp ineffective Active sodium phosphates (Fleet Enema) 19-7 gram/118 mL enema Insert 118 mL into the rectum daily as needed (Constipation). --Use 3rd, if Bisacodyl Supp ineffective Active magnesium hydroxide (MILK OF MAGNESIA) 400 mg/5 mL suspension Take 2,400 mg by mouth daily as needed for constipation. --Use 1st, if no bowel movement in 3 days Active hydrOXYzine (VISTARIL) 25 mg capsule Take 25 mg by mouth every 8 hours as needed for anxiety. Active tiotropium (SPIRIVA HANDIHALER) 18 mcg inhalation capsule Inhale 1 capsule via handihaler once a day. Active nicotine (NICODERM CQ) 21 mg/[address] 1 patch on the skin every 24 hours. Active Active Problems Problem Noted Date Diagnosed Date Hypernatremia 11/06/2024 Assessment & Plan (11/07/2024 5:09 PM EST): 146 - encourage free water intake Monitor daily Assessment & Plan (11/06/2024 4:05 PM EST): 146 - encourage free water intake Monitor daily Shortness of breath 11/05/2024 Tobacco abuse 11/05/2024 Assessment & Plan (11/07/2024 5:09 PM EST): Hx of smoking 1 ppd 40-50 years, She reports that she tried Chantix, Wellbutrin, Nicotine patch/gums - all didn't work She knows to stop smoking as her mother/sister of COPD Assessment & Plan (11/05/2024 8:00 PM EST): Hx of smoking 1 ppd 40-50 years, She reports that she tried Chantix, Wellbutrin, Nicotine patch/gums - all didn't work She knows to stop smoking as her mother/sister of COPD COPD exacerbation 11/05/2024 Assessment & Plan (11/07/2024 5:09 PM EST): Hx of COPD- 50 pack years smoking history, quit yesterday On Advair 250 mcg and prn Albuterol inhaler, Recent admission for COPD exacerbation and influenza A, C.c. shortness of breath, productive cough, chest tightness upon arrival to [facility] Hypoxic to 70s on RA with recovery to 81% on 4LNC, Given IV Solumedrol 125 mg and neb by EMS, COVID/FLU/RSV negative, CXR negative for pneumonia, Placed on high flow oxygen, IV Mg and Duoneb/Albuterol Continue IV Solumedrol 60 mg BID, Duoneb 4 times a day, Budesonide BID Cont pul oximetry, po Doxy BID x 5 days Supportive care Assessment & Plan (11/05/2024 8:25 PM EST): Hx of COPD- 50 pack years smoking history, quit yesterday On Advair 250 mcg and prn Albuterol inhaler, Recent admission for COPD exacerbation and influenza A, C.c. shortness of breath, productive cough, chest tightness upon arrival to [facility] Hypoxic to 70s on RA with recovery to 81% on 4LNC, Given IV Solumedrol 125 mg and neb by EMS, COVID/FLU/RSV negative, CXR negative for pneumonia, Placed on high flow oxygen, IV Mg and Duoneb/Albuterol Continue IV Solumedrol 60 mg BID, Duoneb 4 times a day, Budesonide BID Cont pul oximetry, po Doxy BID x 5 days Supportive care Hypokalemia 11/05/2024 Assessment & Plan (11/07/2024 5:09 PM EST): Monitor and replace Assessment & Plan (11/06/2024 4:05 PM EST): Monitor and replace Acute hypoxemic respiratory failure 11/05/2024 Assessment & Plan (11/07/2024 5:09 PM EST): Hx of non oxygen dependant COPD Recent admission for COPD exacerbation and flu A at [facility] for 2 weeks, C.c. shortness of breath and hypoxia to 70s, Placed on high flow oxygen 40L/FiO2 50%, Continues to be tachypnic with accessory muscle use, Oxygen requirement now down to 4 L/min Tele and continuous pulse oximetry Will wean it gradually Assessment & Plan (11/05/2024 9:39 PM EST): Hx of non oxygen dependant COPD Recent admission for COPD exacerbation and flu A at [facility] for 2 weeks, C.c. shortness of breath and hypoxia to 70s, Placed on high flow oxygen 40L/FiO2 50%, Continues to be tachypnic with accessory muscle use, Will continue high flow oxygen 30L/FiO2 50% for acute hypoxemic resp failure Tele and continuous pulse oximetry Will wean it gradually Alzheimer's disease Assessment & Plan (11/07/2024 5:09 PM EST): On Donepezil Assessment & Plan (11/05/2024 7:59 PM EST): On Donepezil Immunizations Immunization Administration Dates Next Due Covid-19, Pfizer, mRNA, [place] valent, PF 30 mcg/0.3 mL dose (for ages 12 and older) 11/01/2021,04/30/2021,04/09/2021 Tetanus Toxoid, Reduced Diph theria Toxoid, and Acellular Pertussis Vaccine, Adsorbed 10/29/2007 Social History Tobacco Use Types Packs/Day Years Used Date Smoking Tobacco: Every Day Cigarettes Smokeless Tobacco: Never Tobacco Cessation:Ready to Q uit: Yes; Counseling Given: No Comments:Patient has been trying to quit smoking for years Alcohol Use Standard Drinks/Week Comments Yes 7 (1 standard drink = 0.6 oz pur e alcohol) 1 vodka and oj Comments No Sex and Gender Information Value Date Recorded Sex Assigned at Female 11/05/2024 11:54 AM EST Legal Sex Female 11:49 AM EST Gender Identity Not on file Sexual Orientation Not on file Last Filed Vital Signs Vital Sign Reading Time Taken Comments Blood Pressure 121/73 11/08/2024 3:51 PM EST Pulse 80 11/08/2024 3:51 PM EST Temperature 36.4 ??C (97.5 ??F) 11/08/2024 3:51 PM ES T Respiratory Rate 18 11/08/2024 5:42 PM EST Oxygen Saturation 95% 11/08/2024 3:51 PM EST Inhaled Oxygen Concentration - - Weight 40 kg (88 lb 1.6 oz) 11/06/2024 12:30 PM EST Height 162.6 cm (5' 4 ) 11/05/2024 11:53 AM EST Body Mass Index 15.12 11/05/2024 11:53 AM EST Plan of Treatment Not on file Procedures * Due to [place] state law, this organization might not be sharing negative HIV tests. Procedure Name Priority Date/Time Associated Diagnosis Comments BASIC METABOLIC PANEL Routine 11/08/2024 5:54 AM EST CBC Routine 11/08/2024 5:54 AM EST SMEAR REVIEW Routine 11/07/2024 7:07 AM EST BASIC METABOLIC PANEL Routine 11/07/2024 7:07 AM EST CBC AUTO DIFFERENTIAL Routine 11/07/2024 7:07 AM EST TROPONIN T HIGH SENSITIVITY Timed 11/06/2024 10:56 AM EST CBC AUTO DIFFERENTIAL Routine 11/06/2024 6:42 AM EST BASIC METABOLIC PANEL Routine 11/06/2024 6:42 AM EST XR CHEST PORTABLE 1 VIEW STAT 11/05/2024 2:23 PM EST RAPID COVID-19, FLU A, FLU B & RSV RNA PCR, SYMPTOMATIC (ED ONLY) STAT 11/05/2024 12:40 PM EST ECG 12-LEAD STAT 11/05/2024 12:18 PM EST TROPONIN T HIGH SENSITIVITY Timed 11/05/2024 12:18 PM EST BASIC METABOLIC PANEL STAT 11/05/2024 12:18 PM EST CBC AUTO DIFFERENTIAL STAT 11/05/2024 12:18 PM EST from Last 3 Months Results * Due to [place] state law, this organization might not be sharing negative HIV tests. * (ABNORMAL) CBC (11/08/2024 5:54 AM EST) WBC 19.0(H) 4.8 - 10.8 10*3/uL 11/08/2024 6:51 AM EST [facility] RBC 3.62(L) 4.20 - 5.40 10*6/uL 11/08/2024 6:51 AM EST [facility] Hemoglobin 11.1(L) 11.7 - 15.5 g/dL 11/08/2024 6:51 AM EST [facility] Hematocrit 33.8(L) 35.7 - 45.8 % 11/08/2024 6:51 AM EST [facility] MCV 93.4 81.0 - 99.0 fL 11/08/2024 6:51 AM EST [facility] MCH 30.7 26.0 - 34.0 pg 11/08/2024 6:51 AM EST [facility] MCHC 32.8 31.0 - 36.0 g/dL 11/08/2024 6:51 AM EST [facility] RDW 11.9(L) 12.0 - 15.0 % 11/08/2024 6:51 AM EST [facility] Platelets 554(H) 140 - 440 10*3/uL 11/08/2024 6:51 AM EST [facility] MPV 9.6 9.4 - 12.3 fL 11/08/2024 6:51 AM EST [facility] RDW Standard Deviation 41.4 36.4 - 46.3 fL 11/08/2024 6:51 AM EST [facility] Blood Structure of peripheral vein / Unknown Venipuncture / Unknown 11/08/2024 5:54 AM EST 11/08/2024 6:44 AM EST us Steven Tony MD LAB BLOOD ORDERABLES Final Resu lt [facility] [address] [place] [address], [place] [phone] * (ABNORMAL) Basic metabolic panel (11/08/2024 5:54 AM EST) Only the most recent of4 resultswithin the time period is included. NA 140 136 - 145 mmol/L 11/08/2024 7:13 AM EST [facility] K 4.4 3.5 - 5.1 mmol/L 11/08/2024 7:13 AM EST [facility] Cl 100 98 - 109 mmol/L 11/08/2024 7:13 AM EST [facility] CO2 34(H) 22 - 32 mmol/L 11/08/2024 7:13 AM EST [facility] BUN 27(H) 8 - 23 mg/dL 11/08/2024 7:13 AM EST [facility] Creatinine 0.54 0.50 - 1.12 mg/dL 11/08/2024 7:13 AM EST [facility] Glucose 104(H) 60 - 99 mg/dL 11/08/2024 7:13 AM EST [facility] Calcium 9.5 8.4 - 10.4 mg/dL 11/08/2024 7:13 AM EST [facility] Anion Gap 10 >=0 11/08/2024 7:13 AM EST [facility] eGFR >90 >=60 mL/min/1. 73m2 11/08/2024 7:13 AM EST [facility] Comment:The estimated glomer ular filtration rate (eGFR) is calculated using a new formula developed by the NKF-ASN task force to eliminate race-based correction factors. The new formula uses serum/plasma creatinine, age, and gender to determine eGFR. A value below 60mls/min might indicate kidney disease and will be flagged. For additional information, see Koko et al, Am J Kidney Dis. 2021;79(2):268- 288, A Unifying Approach for GFR estimation: Recommendations of the NKF-ASN Task Force on Reassessing the Inclusion of Race in Diagnosing Kidney Disease . Blood Structure of peripheral vein / Unknown Venipuncture / Unknown 11/08/2024 5:54 AM EST 11/08/2024 6:44 AM EST Steven Tony MD LAB BLOOD ORDERABLES Final Resu lt Performing Organization Address City/[facility]/ZIP Co de Phone Number [address] [address], * (ABNORMAL) Smear Review (11/07/2024 7:07 AM EST) Platelet Estimate Increase d(A) Adequate 11/07/2024 8:04 AM EST [facility] RBC Morphology Present( A) Normal, No clinically significant RBC morphology present (ICSH guidelines, 2015). 11/07/2024 8:04 AM EST [facility] Hypochromia 1+(A) Not Present 11/07/2024 8:04 AM EST [facility] Stomatocytes 1+(A) Not Present 11/07/2024 8:04 AM EST [facility] Blood Structure of peripheral vein / Unknown Venipuncture / Unknown 11/07/2024 7:07 AM EST 11/07/2024 7:25 AM EST Donny Nichols MD LAB BLOOD ORDERABLES Final R esult Performing Organization Address [facility] Co de Phone Number [address] [address], [place] [phone] * (ABNORMAL) CBC Auto Differential (11/07/2024 7:07 AM EST) Only the most recent of3 resultswithin the time period is included. WBC 26.6(H) 4.8 - 10.8 10*3/uL 11/07/2024 8:04 AM [facility] RBC 3.38(L) 4.20 - 5.40 10*6/uL 11/07/2024 8:04 AM [facility] Hemoglobin 10.4(L) 11.7 - 15.5 g/dL 11/07/2024 8:04 AM [facility] Hematocrit 31.7(L) 35.7 - 45.8 % 11/07/2024 8:04 AM [facility] MCV 93.8 81.0 - 99.0 fL 11/07/2024 8:04 AM [facility] MCH 30.8 26.0 - 34.0 pg 11/07/2024 8:04 AM [facility] MCHC 32.8 31.0 - 36.0 g/dL 11/07/2024 8:04 AM [facility] RDW 12.0 12.0 - 15.0 % 11/07/2024 8:04 AM [facility] RDW Standard Deviation 42.1 36.4 - 46.3 fL 11/07/2024 8:04 AM [facility] Platelets 531(H) 140 - 440 10*3/uL 11/07/2024 8:04 AM [facility] MPV 9.3(L) 9.4 - 12.3 fL 11/07/2024 8:04 AM [facility] Neutrophil % 89.8(H) 50.0 - 75.0 % 11/07/2024 8:04 AM [facility] Immature Grans % 0.6 0.0 - 0.9 % 11/07/2024 8:04 AM [facility] Lymphocyte % 5.9(L) 20.0 - 44.0 % 11/07/2024 8:04 AM [facility] Monocyte % 3.5 0.0 - 14.0 % 11/07/2024 8:04 AM [facility] Eosinophil % 0.0 0.0 - 5.0 % 11/07/2024 8:04 AM EST [facility] Basophil % 0.2 0.0 - 2.0 % 11/07/2024 8:04 AM EST [facility] Neutrophil # 23.86(H) 1.80 - 7.70 10*3/uL 11/07/2024 8:04 AM EST [facility] Immature Grans # 0.17(H) 0.00 - 0.03 10*3/uL 11/07/2024 8:04 AM EST [facility] Lymphocyte # 1.60 1.00 - 4.75 10*3/uL 11/07/2024 8:04 AM EST [facility] Monocyte # 0.90 0.00 - 6.00 10*3/uL 11/07/2024 8:04 AM EST [facility] Eosinophil # <0.03 0.00 - 0.80 10*3/uL 11/07/2024 8:04 AM EST [facility] Basophil # <0.03 0.00 - 0.20 10*3/uL 11/07/2024 8:04 AM EST [facility] nRBC % 0.0 0 - 0 /100 WBCs 11/07/2024 8:04 AM EST [facility] nRBC # <0.01 0.00 - 0.13 10*3/uL 11/07/2024 8:04 AM EST [facility] Blood Structure of peripheral vein / Unknown Venipuncture / Unknown 11/07/2024 7:07 AM EST 11/07/2024 7:25 AM EST us Donny Nichols MD LAB BLOOD ORDERABLES Final R esult [facility] [address] [facility] [address] [place] [address], * (ABNORMAL) Troponin T, High Sensitivity X2 (now + 2hrs) (11/06/2024 10:56 AM EST) Only the most recent of2 resultswithin the time period is included. Troponin T High Sensitivity 15(H) 6 - 14 ng/L 11/06/2024 11:36 AM EST [facility] Comment: Rc-Ejayixnv-T level of 52 ng/L or higher at 0-hour at presentation is recommended by the ESC 0/1-hour algorithm for identifying patients at high risk for ruling in acute myocardial infarction (AMI) in the appropriate clinical context. Repeat troponin testing 1-3 hours after the initial sample may be helpful in assessing for ongoing myocardial injury. Troponin elevations can be seen in several other non-infarct conditions, and the change (delta) should be evaluated in line with the 4th [place] Definition of AMI. Troponin baseline and serial elevation for a significant delta should be interpreted with clinical presentation, history, signs and symptoms, ECG, and biomarker concentrations. For inpatient setting: Value <12ng/L is considered negative for all genders. 0-1hr: A delta change of <3 will be considered negative/flat if chest pain onset >3 hours 0-3hr: A delta change of <7 will be considered negative/flat Blood Structure of peripheral vein / Unknown Venipuncture / Unknown 11/06/2024 10:56 AM EST 11/06/2024 11:07 AM EST Мария Rowland MD LAB BLOOD ORDERABLES Final Resul t Performing Organization Address City/State/[facility] Co de Phone Number [facility] [address] [place] [address], * XR Chest Portable 1 View (11/05/2024 2:23 PM EST) Anatomical Region Laterality Modality Body Digital Radiogra phy 11/05/2024 2:24 PM EST Impressions 11/05/2024 2:25 PM EST Mild diffuse fibrotic changes without evidence for large airspace consolidation or suspicion of pneumonia.. If this radiology report contains a blank impression section, it is an incomplete radiology report. ??Please contact the interpreting radiologist or applicable radiology division as soon as possible to obtain the completed interpretation. ? Workstation ID: [id number] Narrative 11/05/2024 2:25 PM EST INDICATION: sob COMPARISON: None. TECHNIQUE: XR CHEST PORTABLE 1 VIEW FINDINGS: SUPPORT DEVICES: None. LUNGS: Diffuse mild fibrotic changes with basilar interstitial prominence, but no focal airspace consolidation. PLEURAL SPACE: There is no pneumothorax. ??There is no pleural effusion. There is no suggestion of free air. HEART AND MEDIASTINUM: The cardiomediastinal silhouette is unremarkable. The aortic contour is unremarkable. THORACIC WALL: The ribs appear non-acute. The soft tissues are unremarkable. There is no radio opaque foreign body. THORACIC SPINE: Alignment is intact on the views provided. There are no acute bony abnormalities seen. * Resulting Agency Comment [id number] Procedure Note Louis White MD - 11/05/2024 INDICATION: sob COMPARISON: None. TECHNIQUE: XR CHEST PORTABLE 1 VIEW FINDINGS: SUPPORT DEVICES: None. LUNGS: Diffuse mild fibrotic changes with basilar interstitial prominence,but no focal airspace consolidation. PLEURAL SPACE: There is no pneumothorax. There is no pleural effusion.There is no suggestion of free air. HEART AND MEDIASTINUM: The cardiomediastinal silhouette is unremarkable.The aortic contour is unremarkable. THORACIC WALL: The ribs appear non-acute. The soft tissues areunremarkable. There is no radio opaque foreign body. THORACIC SPINE: Alignment is intact on the views provided. There are noacute bony abnormalities seen. * IMPRESSION: Mild diffuse fibrotic changes without evidence for large airspaceconsolidation or suspicion of pneumonia.. If this radiology report contains a blank impression section, it is anincomplete radiology report. Please contact the interpreting radiologistor applicable radiology division as soon as possible to obtain thecompleted interpretation. Workstation ID: [id number] us Мария Rowland MD IMG XR PROCEDURES Final Result * Rapid COVID-19, FLU A, FLU B & RSV RNA PCR, Symptomatic (ED ONLY) (11/05/2024 12:40 PM EST) PCR, SARS CoV-2 RNA Not Detected Not Detected CEPHEID GENEXPERT 11/05/2024 1:40 PM EST [facility] Flu A RNA PCR Not Detected Not Detected CEPHEID GENEXPERT 11/05/2024 1:40 PM EST [facility] Flu B RNA PCR Not Detected Not Detected CEPHEID GENEXPERT 11/05/2024 1:40 PM EST [facility] RSV RNA PCR Not Detected Not Detected CEPHEID GENEXPERT 11/05/2024 1:40 PM EST [facility] Comment: Limitations: This RSV test is suitable for the pediatric population (less than 19 years of age) only. Performance characteristics have not been established for use with patients older than 19 years of age and immunocompromised patients. Test results must be evaluated in conjuction with other clinical data available to the physician. Swab (Nares) Non-Blood Collection / Unknown 11/05/2024 12:40 PM EST 11/05/2024 12:54 PM EST Narrative [facility] - 11/05/2024 1:40 PM EST Methodology: The The [employer] GeneXpert CoV-2/Flu/RSV plus assay is For Use Under an Emergency Use Authorization (EUA) Only with [employer]. The CoV-2/Flu/RSV plus assay is a rapid, multiplexed real-time RT-PCR assay intended for the simultaneous qualitative detection and differentiation of RNA from SARS-CoV-2, influenza A, influenza B, and Respiratory Syncytial Virus (RSV) in specimens collected from individuals suspected of a respiratory viral infection, by their healthcare provider. A positive test result for SARS-CoV-2, influenza or RSV indicates that RNA from that virus was detected. A negative test result indicates that RNA virus was not present in the specimen above the limit of detection. Therefore, a negative result does not rule out SARS-CoV-2, influenza or RSV infection and should not be used as the sole basis for treatment or other patient management decisions. Мария Rowland MD LAB BODY FLUIDS AND STOOLS ORDER MONALISA Final Result [facility] [address] [place] [address], * ECG 12 lead (11/05/2024 12:18 PM EST) Ventricular Rate EKG 82 BPM MUSE EKG Atrial Rate 80 BPM MUSE EKG MS Interval 141 ms MUSE EKG QRS Interval 88 ms MUSE EKG QT Interval 399 ms MUSE EKG QTC Interval 466 ms MUSE EKG P [place] 86 degrees MUSE EKG R [place] 112 degrees MUSE EKG T Wave [place] 64 degrees MUSE EKG 11/05/2024 12:1 8 PM EST 11/05/2024 1:43 PM EST Impressions MUSE EKG - 11/05/2024 1:43 PM EST Normal sinus rhythm premature atrial complexes Baseline artifact Right axis deviation Poor R-wave progression Consider right ventricular hypertrophy Nonspecific T wave abnormality Borderline QT interval Confirmed by Steven Reynolds ([id number]) on 11/05/2024 1:43:32 PM us Мария Rowland MD ECG ORDERABLES Final Result MUSE EKG from Last [address] [place] [address] [place] [address] Advance Directives Documents on File Type Date Recorded Patient Vice President Of Contracts Expl anation Health Care Proxy 11/07/2024 10:49 AM 06-29 * Full Code (Latest Code Status on File) Date Activated Date Inactivated Comments 11/05/2024 6:19 PM 11/08/2024 9:00 PM Care Teams Sales Promotion Director Relationship Specialty Start Date End Date Vito Beal [address] [place] [address] [phone] PCP - General Internal Medicine 11/05/24
--- OUTSIDE RECORDS SUMMARY | 2025-01-06 16:43 | XMS_ITS | Continuity of Care Document ---
[facility] Organization [facility] Address [address] [place] [phone] Phone Care Team Providers Care Insulation Inspector Name Role Phone Kodi LEDESMA, Coral Unavailable Unavailable Advance Directives Directive Yes / No Effective Date File Name No Information Encounters Encounter Description Practice Location Reason(s) For Visit Diagnoses Date Provider [facility] [address] [place] [address], [id number], [place] tel:[phone] No Information 2024 Mariee Coral. [address] [place] [address], [id number], [place]. tel:[phone] Family History Family Member Type Diagnosis Age At Onset No Information Payers Payer name Insurance type Covered constitution party ID Authoriza tion(s) No Information Social History Type Description Quantity Date Captured Comments Sex Female Smoking Status No Information Chief Complaint And Reason For Visit No Information History Of Present Illness Encounter Date Complaint History Of Prese nt Illness No Information Instructions Date Instruction Additional Infor mation No Information Assessments Type Assessment Date No Information
--- OUTSIDE RECORDS SUMMARY | 2025-01-06 16:43 | XMS_ITS | Clinical Summary ---
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 Name Role Phone Unavailable Primary Care Provider Unavailabl e Encounters Date Type Department Care Team Description 12/31/2024 8:32 AM EST Hospital Encounter [facility] PET Scan [address] [place] [address] Solitary pulmonary nodule from Last 3 Months Social History Tobacco Use Types Packs/Day Years Used Date Smoking Tobacco: Never Assessed Comments Unknown Sex and Gender Information Value Date Recorded Sex Assigned at Not on file Legal Sex Female 11:16 AM EST Gender Identity Not on file Sexual Orientation Not on file Plan of Treatment Health Maintenance Due Date Last Done Comments Breast Cancer Screening 1965 Pneumococcal Vaccine: 50+ Years (1 of 2 - PCV) 1982 Pneumococcal Vaccine: Pediatrics (0 to 5 Years) and At-Risk Patients (6 to 64 Years) (1 of 2 - PCV) 1982 Cervical Cancer Screening: P ap Smear 1984 Zoster Vaccines (1 of 2) 2013 DTaP,Tdap,and Td Vaccines (2 - Td or Tdap) 10/29/2017 10/29/2007 RSV Immunization Patients 60 + Years Old (1 - Risk 60-74 years 1-dose series) 2023 COVID-19 Vaccine (4 - 2023-2 5 season) 2024 11/01/2021, 04/30/2021, 04/09/2021 Influenza Vaccine (#1) 2024 Cholesterol Screening (Lipid Panel) 12/31/2024 Colorectal Cancer Screening: Colonoscopy 12/31/2024 Depression Screening 12/31/2024 HIV Screening 12/31/2024 Hepatitis C Screening 12/31/2024 Social Influencers of Health Screening 12/31/2024 HIB Vaccines Aged Out No longer eligi ble based on patient's age to complete this topic HPV Vaccines Aged Out No longer eligi ble based on patient's age to complete this topic Hepatitis A Vaccines Aged Out No long er eligible based on patient's age to complete this topic Hepatitis B Vaccines Aged Out No long er eligible based on patient's age to complete this topic IPV Vaccines Aged Out No longer eligi ble based on patient's age to complete this topic MMR Vaccines Aged Out No longer eligi ble based on patient's age to complete this topic Meningococcal ACWY Vaccine Aged Out N o longer eligible based on patient's age to complete this topic Meningococcal B Vacine Aged Out No lo nger eligible based on patient's age to complete this topic RSV Immunization Patients Under 20 months Aged Out No longer eligible b ased on patient's age to complete this topic Varicella Vaccines Aged Out No longer eligible based on patient's age to complete this topic Procedures Procedure Name Priority Date/Time Associated Diagnosis Comments PET CT SKULL TO MID THIGH INITIAL Routine 12/31/2024 9:45 AM EST Solitary pulmonary nodule from Last 3 Months Results * PET CT Skull to Mid Thigh Initial (12/31/2024 9:45 AM EST) Anatomical Region Laterality Modality Body Radiographic Maria R ging 01/02/2025 4:23 AM EST Impressions 01/02/2025 5:43 AM EST 1. ??6 mm nodule demonstrates mild FDG activity; nonspecific. ??Underlying malignancy is not excluded. 2. ??Scattered FDG avid bilateral tree-in-bud/ground glass opacities likely postinfectious/postinflammatory in etiology. ??Short-term follow-up with chest CT or PET/CT in 3 months can be obtained to evaluate for resolution. 3. ??Nonspecific FDG avid asymmetric opacities in the right lung apex either representing postinfectious/postinflammatory etiology or malignancy. ??Short- term follow-up with chest CT or PET/CT in 3 months can be obtained to evaluate for resolution. 4. ??FDG avid thoracic lymphadenopathy, possibly reactive in etiology. ??This can be followed. Please note: The CT was acquired at a low radiation dose settings. ??The images are of nondiagnostic quality and used solely for purposes of attenuation correction and slice localization for the PET scan. ??If a diagnostic CT study is desired it must be ordered separately. -------- FINAL REPORT -------- Dictated By: Nubia Fishman Dictated Date: 01/02/2025 04:23 ET Assigned Physician: Nubia Fishman Reviewed and Electronically Signed By: Nubia Fishman Signed Date: 01/02/2025 05:43 ET Workstation ID: [id number] Transcribed By: Self Edit Transcribed Date: 01/02/2025 05:05 ET Narrative 01/02/2025 5:43 AM EST INDICATION: LUNG CANCER SUSPECTED. ??Outside chest CT demonstrated increasing in size right apical nodule measuring approximately 6 mm. TECHNIQUE: FDG PET-CT imaging was performed from the skull bases through the thighs in a single acquisition with data set reconstructed in axial, coronal, and sagittal planes at the computer workstation with fused data from both the PET imaging study and attenuation correction CT. The CT portion of the examination was done strictly for attenuation correction and is not a true diagnostic CT examination. DLP: ??290 mGy-cm Radiopharmaceutical: 13.8 mCi of F-18 FDG IV. Blood glucose: 96 mg/dl. COMPARISON: Correlation is made with outside chest CT dated September 2024 FINDINGS: HEAD AND NECK: No abnormal FDG activity. ??Mucosal thickening in both maxillary sinuses without significant FDG activity. THORAX: 6 mm nodule in the right upper lobe SUV max 1.4. Asymmetric opacities in the right lung apex posteriorly SUV max 4.6. Scattered tree-in-bud/groundglass opacities in both lungs; new from September 2024 SUV Max 4.8 on the right at the level of the right middle lobe and 2.9 in the left lower lobe likely representing postinfectious/postinflammatory process. ??Mucous plugging. FDG avid mediastinal and hilar lymphadenopathy greatest involving precarinal and AP window lymph nodes SUV max 3, right hilar SUV max 3.5 and left infrahilar SUV Max 3.4 (mediastinal blood pool SUV Max 2.2) ABDOMEN/PELVIS: Nonspecific bowel activity, likely physiologic. ??No FDG avid abdominal or pelvic lymphadenopathy. MUSCULOSKELETAL: No abnormal FDG activity. ??Asymmetric FDG activity surrounding the right hip SUV max 2.9 which may represent focal synovitis. Procedure Note Nubia Fishman MD - 01/02/2025 INDICATION: LUNG CANCER SUSPECTED. Outside chest CT demonstratedincreasing in size right apical nodule measuring approximately 6 mm. TECHNIQUE: FDG PET-CT imaging was performed from the skull bases throughthe thighs in a single acquisition with data set reconstructed in axial,coronal, and sagittal planes at the computer workstation with fused datafrom both the PET imaging study and attenuation correction CT. The CTportion of the examination was done strictly for attenuation correctionand is not a true diagnostic CT examination. DLP: 290 mGy-cm Radiopharmaceutical: 13.8 mCi of F-18 FDG IV. Blood glucose: 96 mg/dl. COMPARISON: Correlation is made with outside chest CT dated September2024 FINDINGS: HEAD AND NECK: No abnormal FDG activity. Mucosal thickening in bothmaxillary sinuses without significant FDG activity. THORAX: 6 mm nodule in the right upper lobe SUV max 1.4. Asymmetric opacities in the right lung apex posteriorly SUV max 4.6. Scattered tree-in-bud/groundglass opacities in both lungs; new fromSeptember 2024 SUV Max 4.8 on the right at the level of the right middlelobe and 2.9 in the left lower lobe likely representingpostinfectious/postinflammatory process. Mucous plugging. FDG avid mediastinal and hilar lymphadenopathy greatest involvingprecarinal and AP window lymph nodes SUV max 3, right hilar SUV max 3.5and left infrahilar SUV Max 3.4 (mediastinal blood pool SUV Max 2.2) ABDOMEN/PELVIS: Nonspecific bowel activity, likely physiologic. No FDGavid abdominal or pelvic lymphadenopathy. MUSCULOSKELETAL: No abnormal FDG activity. Asymmetric FDG activitysurrounding the right hip SUV max 2.9 which may represent focalsynovitis. IMPRESSION: 1. 6 mm nodule demonstrates mild FDG activity; nonspecific. Underlyingmalignancy is not excluded. 2. Scattered FDG avid bilateral tree-in-bud/ground glass opacities likelypostinfectious/postinflammatory in etiology. Short-term follow-up withchest CT or PET/CT in 3 months can be obtained to evaluate forresolution. 3. Nonspecific FDG avid asymmetric opacities in the right lung apexeither representing postinfectious/postinflammatory etiology ormalignancy. Short-term follow-up with chest CT or PET/CT in 3 months canbe obtained to evaluate for resolution. 4. FDG avid thoracic lymphadenopathy, possibly reactive in etiology.This can be followed. Please note: The CT was acquired at a low radiation dose settings. The images are ofnondiagnostic quality and used solely for purposes of attenuationcorrection and slice localization for the PET scan. If a diagnostic CTstudy is desired it must be ordered separately. -------- FINAL REPORT -------- Dictated By: Nubia Fishman Dictated Date: 01/02/2025 04:23 ET Assigned Physician: Nubia Fishman Reviewed and Electronically Signed By: Nubia Fishman Signed Date: 01/02/2025 05:43 ET Workstation ID: [id number] Transcribed By: Self Edit Transcribed Date: 01/02/2025 05:05 ET [facility] PROCEDURES Final Result from Last 3 Months
--- OUTSIDE RECORDS SUMMARY | 2025-01-06 16:43 | XMS_ITS | Clinical Summary ---
Author Organization [facility] Address [address] [place] [address] Care Team Providers Care Solar Lab Technician Name Role Phone Vito Beal Primary Care Provider [phone] Allergies No known active allergies Medications donepeziL [...] productive cough, chest tightness upon arrival to [facility] Hypoxic to 70s on RA with recovery [...] productive cough, chest tightness upon arrival to [facility] Hypoxic to 70s on RA with recovery [...] for COPD exacerbation and flu A at [facility] for 2 weeks, C.c. shortness of breath [...] for COPD exacerbation and flu A at [facility] for 2 weeks, C.c. shortness of breath [...] Plan (11/05/2024 7:59 PM EST): On Donepezil Encounters Date Type Department Care Team Description 11/05/2024 11:53 AM EST - 11/08/2024 6:54 PM EST Hospital Encounter [address] [address] Мария Rowland MD Busuito, Brandon C, MD Mohammed, Farrukh, MD Takla, Paul A., MD Shortness of breath (Primary Dx) Discharge Disposition: [facility] Facility (03) from Last 3 Months Immunizations Immunization Administration Dates Next Due Covid-19, Pfizer, mRNA, [place] valent, PF 30 mcg/0.3 mL dose (for [...] 11/05/2024 11:53 AM EST Plan of Treatment Health Maintenance Due Date Last Done Comments Cervical Cancer Screening 1963 Cologuard 1963 Colon Cancer Screening 1963 Colonoscopy 1963 FOBT / Fit Test 1963 HIV Screening 1963 HPV and Pap Smear 1963 Hepatitis C Screening 1963 Pap Smear 1963 Sigmoidoscopy 1963 Pneumococcal Vaccine: 50+ Years (1 of 2 - PCV) [address] Lung Cancer Screening (Baseline) 2013 Zoster Vaccines (1 of 2) 2013 DTaP,Tdap,and Td Vaccines (2 - Td or Tdap) 10/29/2017 10/29/2007 RSV Vaccine (60+ years old a nd patients) (1 - Risk 60-74 years 1-dose series) 2023 COVID-19 Vaccine (4 - 2023-2 5 season) 2024 11/01/2021, 04/30/2021, 04/09/2021 Influenza Vaccine (#1) 2024 Alcohol/Substance Use Screening 10/29/2024 Depression Screening and Follow-Up 10/29/2024 Social Drivers of Health Annual Screening 10/29/2024 Hepatitis B Vaccines Aged Out No long er eligible based on patient's age to complete this topic Procedures * Due to [place] state law, this organization might not be [...] Last 3 Months Results * Due to [place] state law, this organization might not be sharing negative HIV tests. * (ABNORMAL) CBC (11/08/2024 5:54 AM EST) WBC 19.0(H) 4.8 - 10.8 10*3/uL 11/08/2024 6:51 AM EST [facility] RBC 3.62(L) 4.20 - 5.40 10*6/uL 11/08/2024 6:51 AM EST [facility] Hemoglobin 11.1(L) 11.7 - 15.5 g/dL 11/08/2024 6:51 AM EST [facility] Hematocrit 33.8(L) 35.7 - 45.8 % 11/08/2024 6:51 AM EST [facility] MCV 93.4 81.0 - 99.0 fL 11/08/2024 6:51 AM EST [facility] MCH 30.7 26.0 - 34.0 pg 11/08/2024 6:51 AM EST [facility] MCHC 32.8 31.0 - 36.0 g/dL 11/08/2024 6:51 AM EST [facility] RDW 11.9(L) 12.0 - 15.0 % 11/08/2024 6:51 AM EST [facility] Platelets 554(H) 140 - 440 10*3/uL 11/08/2024 6:51 AM EST [facility] MPV 9.6 9.4 - 12.3 fL 11/08/2024 6:51 AM EST [facility] RDW Standard Deviation 41.4 36.4 - 46.3 fL 11/08/2024 6:51 AM EST [facility] Blood Structure of peripheral vein / Unknown Venipuncture / Unknown 11/08/2024 5:54 AM EST 11/08/2024 6:44 AM EST Steven Tony MD LAB BLOOD ORDERABLES Final Resu lt Performing Organization Address City/State/[facility] Co de Phone Number [facility] [address] [place] [phone], * (ABNORMAL) Basic metabolic panel (11/08/2024 5:54 AM EST) Only the most recent of4 resultswithin the time period is included. NA 140 136 - 145 mmol/L 11/08/2024 7:13 AM EST [facility] K 4.4 3.5 - 5.1 mmol/L 11/08/2024 7:13 AM EST [facility] Cl 100 98 - 109 mmol/L 11/08/2024 7:13 AM EST [facility] CO2 34(H) 22 - 32 mmol/L 11/08/2024 7:13 AM EST [facility] BUN 27(H) 8 - 23 mg/dL 11/08/2024 7:13 AM EST [facility] Creatinine 0.54 0.50 - 1.12 mg/dL 11/08/2024 7:13 AM EST [facility] Glucose 104(H) 60 - 99 mg/dL 11/08/2024 7:13 AM EST [facility] Calcium 9.5 8.4 - 10.4 mg/dL 11/08/2024 7:13 AM EST [facility] Anion Gap 10 >=0 11/08/2024 7:13 AM EST [facility] eGFR >90 >=60 mL/min/1. 73m2 11/08/2024 7:13 AM EST [facility] Comment:The estimated glomer ular filtration [...] MD LAB BLOOD ORDERABLES Final Resu lt [facility] [address] [facility] [address] [place] [address], [place] [phone] * (ABNORMAL) Smear Review (11/07/2024 7:07 AM EST) Platelet Estimate Increase d(A) Adequate 11/07/2024 8:04 AM EST [facility] RBC Morphology Present( A) Normal, No clinically significant RBC morphology present (ICSH guidelines, 2015). 11/07/2024 8:04 AM EST [facility] Hypochromia 1+(A) Not Present 11/07/2024 8:04 AM EST [facility] Stomatocytes 1+(A) Not Present 11/07/2024 8:04 AM EST [facility] Blood Structure of peripheral vein / Unknown Venipuncture / Unknown 11/07/2024 7:07 AM EST 11/07/2024 7:25 AM EST us Donny Nichols MD LAB BLOOD ORDERABLES Final R esult Performing Organization Address City/State/[facility] Co de Phone Number [address] [address], * (ABNORMAL) CBC Auto Differential (11/07/2024 7:07 AM EST) Only the most recent of3 resultswithin the time period is included. WBC 26.6(H) 4.8 - 10.8 10*3/uL 11/07/2024 8:04 AM EST [facility] RBC 3.38(L) 4.20 - 5.40 10*6/uL 11/07/2024 8:04 AM EST [facility] Hemoglobin 10.4(L) 11.7 - 15.5 g/dL 11/07/2024 8:04 AM EST [facility] Hematocrit 31.7(L) 35.7 - 45.8 % 11/07/2024 8:04 AM EST [facility] MCV 93.8 81.0 - 99.0 fL 11/07/2024 8:04 AM EST [facility] MCH 30.8 26.0 - 34.0 pg 11/07/2024 8:04 AM EST [facility] MCHC 32.8 31.0 - 36.0 g/dL 11/07/2024 8:04 AM [facility] RDW 12.0 12.0 - 15.0 % 11/07/2024 8:04 AM [facility] RDW Standard Deviation 42.1 36.4 - 46.3 fL 11/07/2024 8:04 AM [facility] Platelets 531(H) 140 - 440 10*3/uL 11/07/2024 8:04 AM [facility] MPV 9.3(L) 9.4 - 12.3 fL 11/07/2024 8:04 AM [facility] Neutrophil % 89.8(H) 50.0 - 75.0 % 11/07/2024 8:04 AM [facility] Immature Grans % 0.6 0.0 - 0.9 % 11/07/2024 8:04 AM [facility] Lymphocyte % 5.9(L) 20.0 - 44.0 % 11/07/2024 8:04 AM [facility] Monocyte % 3.5 0.0 - 14.0 % 11/07/2024 8:04 AM [facility] Eosinophil % 0.0 0.0 - 5.0 % 11/07/2024 8:04 AM [facility] Basophil % 0.2 0.0 - 2.0 % 11/07/2024 8:04 AM [facility] Neutrophil # 23.86(H) 1.80 - 7.70 10*3/uL 11/07/2024 8:04 AM [facility] Immature Grans # 0.17(H) 0.00 - 0.03 10*3/uL 11/07/2024 8:04 AM [facility] Lymphocyte # 1.60 1.00 - 4.75 10*3/uL 11/07/2024 8:04 AM [facility] Monocyte # 0.90 0.00 - 6.00 10*3/uL 11/07/2024 8:04 AM [facility] Eosinophil # <0.03 0.00 - 0.80 10*3/uL 11/07/2024 8:04 AM EST [facility] Basophil # <0.03 0.00 - 0.20 10*3/uL 11/07/2024 8:04 AM EST [facility] nRBC % 0.0 0 - 0 /100 WBCs 11/07/2024 8:04 AM EST [facility] nRBC # <0.01 0.00 - 0.13 10*3/uL 11/07/2024 8:04 AM EST [facility] Blood Structure of peripheral vein / Unknown Venipuncture / Unknown 11/07/2024 7:07 AM EST 11/07/2024 7:25 AM EST us Donny Nichols MD LAB BLOOD ORDERABLES Final R esult [facility] [address] [place] [phone], * (ABNORMAL) Troponin T, High Sensitivity X2 (now + 2hrs) (11/06/2024 10:56 AM EST) Only the most recent of2 resultswithin the time period is included. Troponin T High Sensitivity 15(H) 6 - 14 ng/L 11/06/2024 11:36 AM EST [facility] Comment: Kb-Iisviyda-K level of 52 ng/L or higher at [...] be evaluated in line with the 4th Tionesta Definition of AMI. Troponin baseline and serial [...] MD LAB BLOOD ORDERABLES Final Resul t [facility] [address] [facility] [address] [place] [address], * XR Chest Portable 1 View (11/05/2024 [...] obtain the completed interpretation. ? Workstation ID: [id number] Narrative 11/05/2024 2:25 PM EST INDICATION: sob [...] bony abnormalities seen. * Resulting Agency Comment [id number] Procedure Note Louis White MD - 11/05/2024 [...] possible to obtain thecompleted interpretation. Workstation ID: [id number] Мария Rowland MD IMG XR PROCEDURES Final Result * Rapid COVID-19, FLU A, FLU B & RSV RNA PCR, Symptomatic (ED ONLY) (11/05/2024 12:40 PM EST) PCR, SARS CoV-2 RNA Not Detected Not Detected [facility] 11/05/2024 1:40 PM EST [facility] Flu A RNA PCR Not Detected Not Detected [facility] [employer] 11/05/2024 1:40 PM EST [facility] Flu B RNA PCR Not Detected Not Detected [facility] [employer] 11/05/2024 1:40 PM EST [facility] RSV RNA PCR Not Detected Not Detected [facility] 11/05/2024 1:40 PM EST [facility] Comment: Limitations: This RSV test is [...] PM EST 11/05/2024 12:54 PM EST Narrative [facility] - 11/05/2024 1:40 PM EST Methodology: The [employer] GeneXpert CoV-2/Flu/RSV plus assay is For Use Under an Emergency Use Authorization (EUA) Only with [employer]. The CoV-2/Flu/RSV plus assay is a [...] FLUIDS AND STOOLS ORDER MONALISA Final Result [facility] [address] [place] [address], * ECG 12 lead (11/05/2024 12:18 PM EST) Ventricular Rate EKG 82 BPM MUSE EKG Atrial Rate 80 BPM MUSE EKG HI Interval 141 ms MUSE EKG QRS Interval 88 ms MUSE EKG QT Interval 399 ms MUSE EKG QTC Interval 466 ms MUSE EKG P [place] 86 degrees MUSE EKG R [place] 112 degrees MUSE EKG T Wave [place] 64 degrees MUSE EKG 11/05/2024 12:1 8 PM EST 11/05/2024 1:43 PM EST Impressions MUSE EKG - 11/05/2024 1:43 PM EST Normal sinus rhythm premature atrial complexes Baseline artifact Right axis deviation Poor R-wave progression Consider right ventricular hypertrophy Nonspecific T wave abnormality Borderline QT interval Confirmed by Steven Reynolds ([id number]) on 11/05/2024 1:43:32 PM Мария Rowland MD ECG ORDERABLES Final Result MUSE EKG from Last 3 Months Insurance [facility] Advance Directives Documents on File Type Date Recorded Patient Manager Fixed Income Expl [facility] Health Care Proxy 11/07/2024 10:49 AM 06-29 * Full Code (Latest Code Status on File) Date Activated Date Inactivated Comments 11/05/2024 6:19 PM 11/08/2024 9:00 PM Care Teams Solar Lab Technician Relationship Specialty Start Date End Date Vito Beal [address] [place], [place] [phone] PCP - General Internal Medicine 11/05/24
--- OUTSIDE RECORDS SUMMARY | 2025-01-06 16:43 | XMS_ITS ---
Author Organization [facility] Car e Care Team Providers Care Beam Department Supervisor Name Role Phone Jayme Hartmann Unavailable Unavailable Stephanie Limon Unavailable Unavailable Allergies and adverse reactions No Known Allergies Care Team Name Role Address Phone Organization Dates Jayme Hartmann PCP [address], [place], [address], [place] (Office): [facility] 11/04/2024 - 12/22/2024 Stephanie Limon Attending Physician [address] [address], [place], [address], [place] (Office): [facility] 11/04/2024 - 12/22/2024 Imaging Narrative Note Date Imaging Narrative No te 12/19/2024 XRAY CHEST 2 VIEWFIN DINGS: There is no evidence of active pulmonary disease. The heart is normal in size. No pleural effusion is seen. The hilar and mediastinal structures appear unremarkable.CONCLUSION: No active disease is seen in the chest.ELECTRONICALLY SIGNED BY RABIA DAI M.D. 12/19/2024 4:49:13 PM EST.Reason for Study: R05.1 ACUTE COUGHPrincipal Result Auto Detailer: RABIA DAI ([id number])Space Systems Operations Superintendent: LEO HERNANDEZ ([facility])Borough Coordinator Space Systems Operations Superintendent: LE Goals Section Description Status Target Date Assessment of Needs Active 05/13/2025 Functional mobility, positio marii and transfers will be achieved daily with use of appropriate device. Active 05/13/2025 Chitra will have an absenc e or decrease in frequency of trauma related symptoms through next review. Active 05/13/2025 Chitra will participate in at least 1-2 group activities daily as well as independent/self-directed activities of her choice through her next review date. Active 05/13/2025 No drug/alcohol use while re siding in the facility Active 05/13/2025 Participation in activities of Interest Active 05/13/2025 Participation in treatment, i.e.; Individual, Group Therapy, Psychoeducational groups Active 05/13/2025 Patient will function at opt imal level within the limitations imposed by COPD x -90- days. Active 05/13/2025 Prevent overdose Active 05/13/2025 Res will be discharged to ap propriate setting with appropriate services when able. Active 05/13/2025 Resident will be free from s igns and symptoms of adverse effects of psychotropic drug use through next review date Active 04/28 Resident will demonstrate im proved coping by: Requesting & accepting assistance as needed x 90 days Active 05/13/2025 Resident will follow center policy & procedures Active 05/13/2025 Resident will follow simple instruction until next review. Active 05/13/2025 Resident will have fewer epi sodes of gzjfaayj-mp-puyrhdun altercation Active 05/13/2025 Resident will maintain CBW/r egain wt to IBW of ~110-20 lbs + stay free from significant wt loss -5% Active 05/13/2025 Resident will meet 75-100% of estimated nutrient needs Active 05/13/2025 Resident will not sustain a fall related injury by utilizing fall precautions through next review date. Active 05/13/2025 Resident will not sustain safety related injury d/t non-compliance Active 05/13/2025 Resident will participate in ADLs as able x 90 d ays Active 05/13/2025 Resident will report relief of pain with treatment/medications as ordered each occurrence until next review. Active 05/13/2025 Resident will show no s/s of dental infections x 90 days Active 05/13/2025 Residents Advanced Directive will be honored thr ough review. Active 05/13/2025 Will answer yes/ no to question daily x _90_ day s. Active 05/13/2025 Will exhibit acceptable beha vior as evidenced by no drugs/alcohol hidden in room or brought to resident by visitors Active 05/13/2025 Will remain free from acute or post-acute withdrawal symptoms Active 05/13/2025 Immunizations Immunization Status Vaccine Details Vaccine Code CodeSystem Date Notes TB 2 Step Mantoux Skin Test completed tuberculin skin test; unspecified formulation lotNumber: [id number] expiry: 12/03/2024 Mfg: [employer] pasteur Given 0.1 ml Right Forearm intradermally Step 1 of Multi-step with next step required 98 CVX created date: 11/05/2024 consent date: 11/05/2024 administer ed date: 11/05/2024 Educated by on 11/10/2024 TB 2 Step Mantoux Skin Test new tuberculin skin test; unspecified formulation 98 CVX created date: 11/10/2024 consent date: 11/05/2024 SARS-COV-2 (COVID-19) completed Step 2 of Multi-step with next step required created date: 11/21/2024 administer ed date: 04/30/2021 Validated in [facility] SARS-COV-2 (COVID-19) completed Step 1 of Multi-step with next step required created date: 11/21/2024 administer ed date: 04/09/2021 Validated in [facility] ([employer]) Covid-19 Booster completed SARS-COV-2 (COVID-19) vaccine, mRNA, spike protein, LNP, preservative free, 30 mcg/0.3mL dose 208 CVX created date: 11/21/2024 administer ed date: 11/01/2021 Validated in [facility] Mental Status Section Date Assessment Total Score Description 11/12/2024 BIMS 09 moderate cognit bernardino impairment CAM 5 Delirium indica rekha 11/12/2024 BIMS 09 moderate cognit bernardino impairment CAM 5 Delirium indica rekha Problems Problem # Description Date of onset Resolved Date Code CodeSystem Concern Status 1 ALZHEIMER'S DISEASE WITH LATE ONSET 11/04/[address] active 2 ANOREXIA NERVOSA, UNSPECIFIED 11/04/[address] active 3 CHRONIC OBSTRUCTIVE PULMONARY DISEASE WITH (ACUTE) EXACERBATION 11/04/[address] active 4 DEMENTIA IN OTHER DISEASES CLASSIFIED ELSEWHERE, UNSPECIFIED SEVERITY, WITHOUT BEHAVIORAL DISTURBANCE, PSYCHOTIC DISTURBANCE, MOOD DISTURBANCE, AND ANXIETY 11/04/[address] active 5 GENERALIZED ANXIETY DISORDER 11/04/[address] active 6 MAJOR DEPRESSIVE DISORDER, RECURRENT, MODERATE 11/04/[address] active 7 NEUROCOGNITIVE DISORDER WITH LEWY BODIES 11/04/[address] active 8 OTHER ABNORMALITIES OF GAIT AND MOBILITY 11/04/[address] active 9 SHORTNESS OF BREATH 11/04/[address] active 10 URGENCY OF URINATION 11/04/[address] active 11 URINARY TRACT INFECTION, SITE NOT SPECIFIED 11/04/[address] active 12 WEAKNESS 11/04/[address] active Reason for Referral No Reasons for Referral Entered Diagnostic Results Result Code Code System Date Test Result Interpretation Reference Range Status Notes 36979-1 [facility] 2024 XRAY CHEST 2 VIEW Completed Result for: CHITRA WALKER ( 1965, F) 16658-2 [facility] 2024 XRAY CHEST 2 VIEW Final XRAY CHEST 2 VIEWFINDINGS: There is no evidence of active pulmonary disease. The heart is normal in size. No pleural effusion is seen. The hilar and mediastinal structures appear unremarkable.CO NCLUSION: No active disease is seen in the chest.MARYI BRANDON SIGNED BY RABIA DAI M.D. 12/19/2024 4:49:13 PM EST.Reason for Study: R05.1 ACUTE COUGHPrincipal Result Auto Detailer: RABIA DAI ([id number])Ssuie hnician: LEO HERNANDEZ)Miri scription Space Systems Operations Superintendent: MARCIN Test Code Code System Name Date 12/19/2024 Social History Social History Observation Description Start Date End Date Code Code System Current Smoking Status Tobacco smoking consumption unknown 312468308 SNOMED CT Sex Assigned At Female 1965 17532-9 [facility] Vital Signs Code Code System Vitals Name Values and Units Timing Information 52839-6 [facility] Weight Value=97.1 Units=Lbs 11/29 9279-1 [facility] Respiratory Rate Value=18.0 Units=/m in 12/10/2024 8462-4 [facility] Blood Pressure-Diastolic Value=64 Un its=mmHg 12/10/2024 8480-6 [facility] Blood Pressure-Systolic Ifnmp=902 Un its=mmHg 12/10/2024 8310-5 [facility] Body Temperature Value=97.9 Units=?? F 12/10/2024 8867-4 [facility] Heart rate Value=80.0 Units=/min 09/2025 60251-6 [facility] O2 % BldC Oximetry Value=96.0 Units= % 12/10/2024 24311-2 [facility] Pain Level Value=0.0 12/10/2024 8302-2 [facility] Height Value=64.0 Units=Inches 11/04/2024 3151-8 [facility] Inhaled oxygen flow rate Value=3.0 U nits=L/Min 12/10/2024
--- OUTSIDE RECORDS SUMMARY | 2025-01-06 16:43 | XMS_ITS | Encounter Summary ---
Author Organization [facility] Address [address] [place] [id number] Care Team Providers Care Electrician Maintenance Name Role Phone Unavailable Primary Care Provider Unavailabl e Reason for Referral * Imaging (Routine) - Pending Review Specialty Diagnoses / Procedures Referred By Mary angelo Referred To Contact Radiology Diagnoses Solitary pulmonary nodule Procedures PET CT Skull to Mid Thigh Initial Chacho Erwin [address] [place] [address] Dr Greg [place] Phone: tel: fax: [facility] Referral ID Status Reason Start Date Expiration Date V isits Requested Visits Authorized [id number] Pending Review 12/30/2024 12/30/2025 1 1 Reason for Visit * Imaging (Routine) - Pending Review Specialty Diagnoses / Procedures Referred By Mary angelo Referred To Contact Radiology Diagnoses Solitary pulmonary nodule Procedures PET CT Skull to Mid Thigh Initial Chacho Erwin [address] [place] [address] Dr Greg [place] Phone: tel: fax: [facility] Referral ID Status Reason Start Date Expiration Date V isits Requested Visits Authorized [id number] Pending Review 12/30/2024 12/30/2025 1 1 Encounter Details Date Type Department Care Team (Latest Contact Info) Description 12/31/2024 8:32 AM EST Hospital Encounter [facility] PET Scan [address] [place] [address] Solitary pulmonary nodule Social History Tobacco Use Types Packs/Day Years Used Date Smoking Tobacco: Never Assessed Comments Unknown Sex and Gender Information Value Date Recorded Sex Assigned at Not on file Legal Sex Female 11:16 AM EST Gender Identity Not on file Sexual Orientation Not on file documented as of this encounter Plan of Treatment Not on file documented as of this encounter Procedures Procedure Name Priority Date/Time Associated Diagnosis Comments PET CT SKULL TO MID THIGH INITIAL Routine 12/31/2024 9:45 AM EST Solitary pulmonary nodule documented in this encounter Results * PET CT Skull to Mid [...] Signed Date: 01/02/2025 05:43 ET Workstation ID: [id number] Transcribed By: Self Edit Transcribed Date: 01/02/2025 [...] Signed Date: 01/02/2025 05:43 ET Workstation ID: [id number] Transcribed By: Self Edit Transcribed Date: 01/02/2025 05:05 ET Chacho Erwin [facility] PROCEDURES Final Result documented in this encounter Visit Diagnoses Diagnosis Solitary pulmonary nodule documented in this encounter Administered Medications Inactive Administered Medications - up to 3 most recent administrations Medication Order MAR Action Action Date Dose Rate Site F-18 FDG pet diag radio-isotope injection 13.8 millicurie 13.8 millicurie, intravenous, Once in imaging, Starting on Sun12/31/24 at 0845, For 1 dose Given 12/31/2024 8:45 AM EST 13.8 millicuries Left Antecubital documented in this encounter Orders Medications Ordered That Je ht Not Have Been Administered Count Last Ordered Date First Ordered Date F-18 FDG pet diag radio-isot ope injection 13.8 millicurie 1 12/31/2024 documented in this encounter
== END 2025-01-06 15:05 | disposition home or self-care (01) ==
PROVIDERS: PCP Internal Medicine; Visit Provider Internal Medicine
DX: G30.9 Alzheimer's disease, unspecified (principal); F02.80 Dementia in other diseases classified elsewhere, unspecified severity, without behavioral disturbance, psychotic disturbance, mood disturbance, and anxiety; J96.11 Chronic respiratory failure with hypoxia; F31.75 Bipolar disorder, in partial remission, most recent episode depressed; F50.00 Anorexia nervosa, unspecified; Z09 Encounter for follow-up examination after completed treatment for conditions other than malignant neoplasm; R62.7 Adult failure to thrive; Z99.81 Dependence on supplemental oxygen; H60.542 Acute eczematoid otitis externa, left ear

== ENCOUNTER → 2025-01-06 13:43 | Outpatient (BNVA) | payer MEDICARE, MEDICAID, SELFPAY | PROVIDERS: PCP Internal Medicine; Visit Provider Internal Medicine | DX: Z09 Encounter for follow-up examination after completed treatment for conditions other than malignant neoplasm (principal); G30.9 Alzheimer's disease, unspecified; F02.80 Dementia in other diseases classified elsewhere, unspecified severity, without behavioral disturbance, psychotic disturbance, mood disturbance, and anxiety; J96.11 Chronic respiratory failure with hypoxia; R62.7 Adult failure to thrive; F31.75 Bipolar disorder, in partial remission, most recent episode depressed; F50.00 Anorexia nervosa, unspecified; H60.542 Acute eczematoid otitis externa, left ear; Z99.81 Dependence on supplemental oxygen | CPT/HCPCS: 99212 ==

== ENCOUNTER 2025-02-16 11:20 | Inpatient (IN) | payer MEDICARE, SELFPAY ==
[2025-02-16] VITALS (10 sets, daily range): BP systolic 115–143; BP diastolic 57–77; PULSE 72–91; RESP 13–26; TEMP 36.5–37.1; O2SAT 89–100; BMI 16.4; BMI 17.3
--- NOTE | ~2025-02-16 | XR_ITS ---
CLINICAL HISTORY: sob Single view of the chest. COMPARISON: XR chest dated 11/02/24 at 19:37 EST FINDINGS: Hyperinflation. Normal heart size. Decreased bronchovascular markings consistent with emphysema. Calcified granulomas present along the left lateral lung. No pleural effusion or pneumothorax. No acute fracture. IMPRESSION: 1. Hyperinflation with emphysema. This document has been electronically signed by: Samir Duran MD on 02/16/2025 14:33:25
--- NOTE | 2025-02-16 11:43 | ECG_ITS ---
Test Reason : SOB Blood Pressure : */* mmHG Vent. Rate : 85 BPM Atrial Rate : 85 BPM P-R Int : 112 ms QRS Dur : 78 ms QT Int : 374 ms P-R-T Axes : 81 122 76 degrees QTcB Int : 445 ms Artifact in tracing Normal sinus rhythm Right axis deviation Abnormal ECG When compared with ECG of 17-Oct-2024 17:40, No significant change was found Referred By: Sally Sheridan Electronically Signed By: KHRIS COLEMAN
[2025-02-16] MEDS: Albuterol Sulfate 7.5 MG, Albuterol/Iprat 2.5/0.5MG 3 ML 3 ML INHALE (11:48)
--- NOTE | 2025-02-16 11:52 | ED_ITS ---
HPI - SOB/Dyspnea General Chief Complaint: Dyspnea Stated Complaint: SOB, DUONEB X2 GIVEN FROM [facility], PER EMS Time Seen by Provider: 02/16/25 11:23 Source: patient, EMS, RN notes reviewed and old records reviewed Mode of arrival: EMS History of Present Illness ED Provider: Sally Sheridan PA-C HPI Narrative: 59-year-old female with a past medical history cognitive impairment, COPD on home O2, tobacco abuse, bipolar, protein calorie malnutrition, presenting to the ED via EMS from assisted living complaining of worsening cough and SOB x awhile. Reports some chest tightness. Denies fever, chills, abdominal pain or sick contacts. Patient is poor historian with baseline cognitive impairment/dementia. Per EMS patient was satting 88% on baseline 3L, received 2 Bj HINES MD elicited complaint: shortness of breath Related Data Previous Rx's ?Medication ?Instructions ?Recorded megestrol 40 mg tablet 40 mg PO DAILY 90 days #90 tabs 03/06/24 fluticasone 250 mcg-salmeterol 50 1 inh inhalation BID copd 30 days 06/03/24 mcg/dose blistr powdr for #60 ea inhalation (Wixela Inhub) nebulizer with all supplies #1 ea 09/05/24 clobetasol 0.05 % topical cream 1 appl topical BEDTIME PRN Left 01/06/25 external ear eczema 30 days #30 grams hydroxyzine HCl 25 mg tablet 25 mg PO BID 30 days #60 tabs 01/06/25 quetiapine 25 mg tablet (Seroquel) 25 mg PO BEDTIME 90 days #90 tabs 01/06/25 sertraline 50 mg tablet See Rx Instructions PO DAILY 90 01/06/25 days #135 tabs valacyclovir 500 mg tablet 500 mg PO DAILY #90 tabs 01/06/25 donepezil 5 mg tablet 5 mg PO BEDTIME #30 tabs 01/09/25 albuterol sulfate 90 mcg/actuation 2 puff inhalation Q4-6H PRN for 02/02/25 aerosol inhaler wheezing #8.5 ea hydroxyzine HCl 25 mg tablet 25 mg PO BID 30 days #60 tabs 02/02/25 ipratropium 0.5 mg-albuterol 3 mg 3 ml inhalation Q6-8H PRN wheezing 02/04/25 (2.5 mg base)/3 mL nebulization 30 days #90 mL soln ipratropium 0.5 mg-albuterol 3 mg 3 ml inhalation Q8H PRN wheezing 02/04/25 (2.5 mg base)/3 mL nebulization 30 days #90 mL soln tiotropium bromide 18 mcg capsule 1 cap inhalation DAILY SEVERE COPD 02/12/25 with inhalation device (Spiriva 30 days #30 inhalations with HandiHaler) Allergies Allergy/AdvReac Type Severity Reaction Status Date / Time No Known Allergies Allergy Verified 02/16/25 11:48 Review of Systems 2 Review of Systems: Yes all other systems are reviewed and are negative Constitutional: Constitutional: Reports as per [facility] Past Medical History Attestation statement: The following information was validated with the patient. Source: old records reviewed Medical History Pulmonary nodule Acute on chronic hypoxic respiratory failure Major neurocognitive disorder Encounter for assessment of decision-making capacity Cognitive impairment Nicotine dependence, cigarettes, uncomplicated Anal itching Vaginal discharge Colonoscopy refused Palpitation Colon cancer screening Non-compliance Anorexia nervosa Underweight Urinary urgency Eczema Mammogram declined Surgical History History of cervical biopsy History of tonsillectomy History of surgery on arm Family History Family History Father Family history unknown Mother COPD (chronic obstructive pulmonary disease) Sister No problems noted. Sister COPD (chronic obstructive pulmonary disease) Social History Social History Household Members: None Housing: Apartment Do you presently have visiting nurse or other home services: No Alcohol intake: current Alcohol intake frequency: 0-2 drinks per day Alcohol type: hard liquor Patient Tobacco Use Status: Current everyday Tobacco user Tobacco use type: Cigarette Cigarettes Per Day: 10 Years Smoked: onset 13yo, 1ppd x 45yrs, now1/2ppd - 40pyh e-Cigarette/Vaping Use: Never Used Second Hand Smoke Exposure: No Use of substances other than those prescribed or required for medical reasons: No Substance Use Type: Marijuana Advance Directives: No Advance Directives Information Provided: Yes Do you have a plan to hurt others: No Plan service: No Current occupational status: disabled Sexual orientation: Straight/Heterosexual Gender identity: Female Cognitive needs: No Hearing needs: No Vision needs: No Physical Exam 2 Vital Signs: Vital Signs: Last Vital Signs Temp 97.7 F 02/16/25 13:11 Pulse 88 02/16/25 14:13 Resp 26 H 02/16/25 14:13 BP 124/77 02/16/25 13:11 Pulse Ox 95 02/16/25 13:11 O2 Del Method Nasal Cannula 02/16/25 13:11 O2 Flow Rate 3 02/16/25 13:11 Oxygen Flow Rate 4 02/16/25 11:45 BMI result Body Mass Index 16.4 Const: General: cooperative, healthy appearing and no acute distress O rientation/consciousness: patient oriented x3 Limitations: no limitations HEENT: Head: Yes normal to inspection and Yes atraumatic Ears: hearing grossly normal bilaterally General nose exam: Normal external nose present Face and sinus: Yes normal facial exam Eyes: General: appearance normal, both eyes and all related structures EOM: EOMs intact bilaterally Neck: Neck: Yes normal visual inspection and Yes no meningeal signs Resp: Effort & Inspection: no respiratory distress and tachypneic A uscultation: wheezes expiratory wheezes and throughout and diminished lung sounds diffuse Cardio: Rate: regular rate Heart sounds: S1 normal heart sound present and S2 normal heart sound present GI: Inspection: Yes normal to inspection Palpation (GI): Soft to palpation, nontender, no guarding and not rigid Skin: Rashes: no rashes Wounds: no wounds Neuro: General: patient oriented x3, tone normal and no meningeal signs C ranial nerves: Yes CN's II-XII intact bilaterally Gait exam (Neuro): Normal gait present Extrem: General: Yes normal to inspection and Yes no pedal edema Course Course Course Narrative: -1455--labs reassuring. Initial troponin 5.1, will obtain repeat. -viral testing negative XR chest 1V IMPRESSION: 1. Hyperinflation with emphysema. > on re-evaluation patient is still with diminished lung sounds throughout and expiratory wheeze despite multiple DuoNebs, IV Solu-Medrol, and IV magnesium. Plan will be for hospital admission Medications Administered Discontinued Medications Generic Name Dose Route Start Last Admin Trade Name Freq PRN Reason Stop Dose Admin Albuterol Sulfate 2.5 mg/ 5 mg 02/16/25 14:13 02/16/25 14:17 Albuterol Sulfate 2.5 mg INHALE 02/16/25 14:14 5 mg ONCE ONE Administration Albuterol Sulfate 7.5 mg/ 0 mg 02/16/25 11:40 02/16/25 11:48 Albuterol/Ipratropium 3 ml INHALE 02/16/25 11:41 10 each ONCE ONE Administration Magnesium Sulfate 2 gm in 50 mls @ 25 mls/hr 02/16/25 12:31 02/16/25 13:12 Magnesium Sulfate/H2o IV 02/16/25 14:30 25 mls/hr ONCE ONE Administration Methylprednisolone Sodium Succinate 60 mg 02/16/25 11:43 02/16/25 11:56 Methylprednisolone Sod Succ 125 Mg/2 Ml Vial IVPUSH 02/16/25 11:44 60 mg ONCE ONE Administration Medical Decision Making Medical Decision Making MDM Narrative: 59-year-old female with a past medical history cognitive impairment, COPD on home O2, tobacco abuse, bipolar, protein calorie malnutrition, presenting to the ED via EMS from assisted living complaining of worsening cough and SOB x awhile. On exam tachypneic, satting 98% on 4L NC. Diminished lung sounds throughout with diffuse expiratory wheeze. No pedal edema. Concern for COPD exacerbation vs viral illness vs pneumonia. Lower suspicion for acute PE/CHF, ACS or dissection Plan: EKG, labs, CXR, viral testing, ED bronch protocol, anticipated admission Please refer to course for remaining clinical decision making, interpretation of labs/imaging results, and discussions with consultants and/or family members. Differential Diagnosis Differential Diagnoses: The differential diagnosis associated with the presentation includes As above Admission/Observation Consideration of admission/observation: Escalation of care including admission/observation considered Lab Data [facility] Lab Attestation statement: I reviewed the patient's lab results. 02/16/25 12:10 02/16/25 12:10 Labs: Lab Results 02/16/25 02/16/25 02/16/25 Range/Units 12:04 12:10 14:49 WBC 7.7 (4.8-10.8) X10*3/uL RBC 4.09 L (4.20-5.50) X10*6/uL Hgb 11.7 L (12.0-16.0) g/dl Hct 37.7 (37.0-47.0) % MCV 92.2 (80.0-98.0) fL MCH 28.6 (27.0-33.0) pg MCHC 31.0 (31.0-35.0) g/dl RDW 13.8 (11.0-16.0) % Plt Count 274 (160-400) X10*3/uL MPV 9.3 L (9.4-12.3) fL Immature Gran % (Auto) 0.3 (0.0-0.4) % Neut % (Auto) 69.4 (45-73) % Lymph % (Auto) 19.2 L (20-40) % [place] % (Auto) 4.5 (2-11) % Eos % (Auto) 5.6 H (0-4) % Baso % (Auto) 1.0 (0-2) % Lymph # (Auto) 1.5 (1.2-4.9) X10*3/uL [place] # (Auto) 0.4 (0.1-1.2) X10*3/uL Eos # (Auto) 0.4 (0.0-0.4) X10*3/uL Baso # (Auto) 0.1 (0.0-0.2) X10*3/uL Abs Immat Gran (auto) 0.02 (0.00-0.03) X10*3/uL Absolute Neuts (auto) 5.4 (2.0-8.3) x10*3/uL Absolute Nucleated RBC 0.000 (0.0-0.012) X10*3/uL Nucleated RBC % (auto) 0.0 (0.0-0.2) /100WBC Sodium 145 (135-145) mmol/L Potassium 3.8 (3.3-5.1) mmol/L Chloride 102 (96-108) mmol/L Carbon Dioxide 34 H (22-29) mmol/L Anion Gap 13 (12-20) BUN 9 (9-16) mg/dL Creatinine 0.67 (0.5-1.4) mg/dL Estim Creat Clear Calc 60.4 Estimated GFR > 60 Random Glucose 110 (60-115) mg/dL Calcium 9.4 (8.4-10.2) mg/dL Magnesium 1.8 (1.6-2.6) mg/dL Total Bilirubin 0.3 (0.0-1.0) mg/dL Direct Bilirubin 0.1 (0.0-0.5) mg/dL AST 22 (5-31) U/L ALT 16 (0-31) U/L Alkaline Phosphatase 31 L (39-117) U/L Troponin I High Sens 5.1 (<3.5-17.0) ng/L B-Natriuretic Peptide 34 (<100) pg/mL Total Protein 7.6 (6.5-8.0) g/dL Albumin 3.9 (3.5-5.0) g/dL Urine Color Yellow Urine Appearance Cloudy Urine pH 6.5 (5.0-9.0) Ur Specific [place] 1.015 (1.005-1.025) Urine Protein Trace (Neg-Trace) mg/dL Urine Glucose (UA) Negative (Negative) mg/dL Urine Ketones Negative (Negative) mg/dL Urine Blood Negative (Negative) Urine Nitrite Negative (Negative) Ur Leukocyte Esterase Moderate (2+) H (Negative) Influenza Type A (PCR) NEGATIVE (Negative) Influenza Type B (PCR) NEGATIVE (Negative) RSV RNA Qual (PCR) NEGATIVE (Negative) SARS-CoV-2 RNA (RT-PCR) NEGATIVE (Negative) Independent Interpretation I performed an independent interpretation of an: EKG (My interpretation EKG normal sinus rhythm rate of 85. MI interval 112. No significant change when compared to prior. No STEMI ) and Plain X-Ray Radiology Impression Discussion of test interpretation with radiology: I have reviewed the radiologist's reading. Independent Historian Clinical information obtained from an independent historian. History obtained from or confirmed by: EMS External Record Review External record reviewed: Inpatient record, Office record, Outpatient record, Prior outpatient labs, Prior outpatient radiology, Primary care record and Outside ED record Tests considered The following testing was considered but not selected: As above Prescription Management I considered prescription management with: Antibiotic and Other Chronic Conditions Patient?s care impacted by: Other (Cognitive impairment, COPD) Social Determinants Patient?s care significantly limited by Social Determinants of Health including: Other Social Determinant of Health Critical Care Time Critical Care Time Critical Care Time: Yes Total Critical Care Time: 45 Attestation: I have personally provided critical care time exclusive of time spent on separately billable procedures. Time includes review of lab data, radiology results, discussion with consultants, and monitoring for potential decompensation. Intervention performed as documented. Discharge Plan Discharge Clinical Impression: Acute exacerbation of chronic obstructive pulmonary disease Patient Disposition: Admitted As Inpatient Print Language: Sami
[2025-02-16] MEDS: methylPREDNISolone Sod Succ 125 MG/2 ML VIAL 60 MG IVPUSH (11:56)
--- OUTSIDE RECORDS SUMMARY | 2025-02-16 12:07 | XMS_ITS | Clinical Summary ---
Author Organization [facility] Address [address] [place] [address] Phone Care Team Providers Care Crossword Puzzle Maker Name Role Phone Vito Beal MD Primary Care Provider [phone] Encounters Date Type Department Care Team Description 12/31/2024 8:32 AM EST - 12/31/2024 11:59 PM EST Hospital Encounter [facility] PET Scan [address] [place] [address] Solitary pulmonary nodule Discharge Disposition: Home or Self Care from Last 3 Months Social History Tobacco [...] Td or Tdap) 10/29/2017 10/29/2007 RSV Immunization Adult Patients (1 - Risk 60-74 years 1-dose series) 2023 COVID-19 Vaccine (2023-2 5 season) 2024 11/01/2021, 04/30/2021, 04/09/2021 Cholesterol Screening (Lipid Panel) 12/31/2024 Colorectal Cancer Screening: Colonoscopy 12/31/2024 Depression Screening 12/31/2024 HIV Screening 12/31/2024 Hepatitis C Screening 12/31/2024 Social Influencers of Health Screening 12/31/2024 Influenza Vaccine (Season Ended) 2025 HIB Vaccines Aged Out No longer eligi [...] age to complete this topic Meningococcal B Vaccine Aged Out No l onger eligible based on patient's age to complete [...] Signed Date: 01/02/2025 05:43 ET Workstation ID: [id number] Transcribed By: Self Edit Transcribed Date: 01/02/2025 [...] Signed Date: 01/02/2025 05:43 ET Workstation ID: [id number] Transcribed By: Self Edit Transcribed Date: 01/02/2025 05:05 ET Chacho Erwin IMG NM PROCEDURES Final Result from Last 3 Months Care Teams Crossword Puzzle Maker Relationship Specialty Start Date End Date Vito Beal MD [address] [place] [address] PCP - General Internal Medicine 02/13/25
--- OUTSIDE RECORDS SUMMARY | 2025-02-16 12:07 | XMS_ITS | Clinical Summary ---
Author Organization [facility] Address [address] [place] [address] Care Team Providers Care Companion Caregiver Name Role Phone Vito Beal Primary Care Provider [phone] Allergies No known active allergies Medications donepeziL [...] productive cough, chest tightness upon arrival to [facility] Hypoxic to 70s on RA with [...] productive cough, chest tightness upon arrival to [facility] Hypoxic to 70s on RA with [...] for COPD exacerbation and flu A at [facility] for 2 weeks, C.c. shortness of breath [...] for COPD exacerbation and flu A at [facility] for 2 weeks, C.c. 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
--- OUTSIDE RECORDS SUMMARY | 2025-02-16 12:07 | XMS_ITS | Referral Summary ---
Author Organization [facility] Address [address] [place] [address] Care Team Providers Care Machine Design Engineer Name Role Phone Vito Beal Primary Care Provider [phone] Allergies No known active allergies Medications donepeziL [...] productive cough, chest tightness upon arrival to [facility] Hypoxic to 70s on RA with recovery [...] productive cough, chest tightness upon arrival to [facility] Hypoxic to 70s on RA with recovery [...] for COPD exacerbation and flu A at [facility] for 2 weeks, C.c. shortness of breath [...] for COPD exacerbation and flu A at [facility] for 2 weeks, C.c. 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
[2025-02-16 12:15] LABS: MANUAL DIFF FLAG NO
[2025-02-16 12:16] LABS: Basophils Absolute Auto 0.1 X10*3/uL (0.0-0.2); Eosinophils Absolute Auto 0.4 X10*3/uL (0.0-0.4); Eosinophils Percent Auto 5.6 % (0-4); Hematocrit 37.7 % (37.0-47.0); Hemoglobin 11.7 g/dl (12.0-16.0); Imm Gran Abs Auto 0.02 X10*3/uL (0.00-0.03); Imm Gran Pct Auto 0.3 % (0.0-0.4); Lymphocytes Absolute Auto 1.5 X10*3/uL (1.2-4.9); Lymphocytes Percent Auto 19.2 % (20-40); Mean Corpuscular Hemoglobin 28.6 pg (27.0-33.0); Mean Corpuscular Volume 92.2 fL (80.0-98.0); Mean Platelet Volume 9.3 fL (9.4-12.3); Monocytes Absolute Auto 0.4 X10*3/uL (0.1-1.2); Monocytes Percent Auto 4.5 % (2-11); Neutrophils Absolute Auto 5.4 x10*3/uL (2.0-8.3); Neutrophils Percent Auto 69.4 % (45-73); Platelet Count 274 X10*3/uL (160-400); Red Blood Count 4.09 X10*6/uL (4.20-5.50); Red Cell Distribution Width 13.8 % (11.0-16.0); White Blood Count 7.7 X10*3/uL (4.8-10.8)
[2025-02-16 12:30] LABS: Alanine Aminotransferase 16 U/L (0-31); Albumin Level 3.9 g/dL (3.5-5.0); Alkaline Phosphatase 31 U/L (39-117); Anion Gap 13 (12-20); Aspartate Amino Transferase 22 U/L (5-31); Bilirubin Direct 0.1 mg/dL (0.0-0.5); Bilirubin Total 0.3 mg/dL (0.0-1.0); Blood Urea Nitrogen 9 mg/dL (9-16); Calcium 9.4 mg/dL (8.4-10.2); Carbon Dioxide 34 mmol/L (22-29); Chloride 102 mmol/L (96-108); Creatinine Clr Calc Pharmacy 60.4; Estimated Glomerular Filt Rate > 60; Glucose Random 110 mg/dL (60-115); Magnesium 1.8 mg/dL (1.6-2.6); Potassium 3.8 mmol/L (3.3-5.1); Sodium 145 mmol/L (135-145); Total Protein 7.6 g/dL (6.5-8.0)
[2025-02-16 12:35] LABS: B Type Natriuretic Peptide 34 pg/mL (<100)
[2025-02-16 12:36] LABS: Troponin-I High Sensitivity 5.1 ng/L (<3.5-17.0)
[2025-02-16 12:56] LABS: Influenza A PCR NEGATIVE (Negative); Influenza B PCR NEGATIVE (Negative); Resp Syncy Virus RNA Qual PCR NEGATIVE (Negative); SARS COV2 PCR INHOUSE NEGATIVE (Negative)
[2025-02-16] MEDS: Magnesium Sulfate/H2O 2 GM/50 ML PIGGYBACK IV (13:12)
[2025-02-16] MEDS: Albuterol Sulfate 2.5 MG, Albuterol Sulfate (0.083%) 2.5 MG 5 MG INHALE (14:17)
[2025-02-16 14:59] LABS: Appearance Urine Cloudy; Color Urine Yellow; Glucose Urine UA Negative (Negative); Leukocyte Esterase Urine Moderate (2+) (Negative); Nitrite Urine Negative (Negative); PH 6.5 (5.0-9.0); Specific Gravity - Urine 1.015 (1.005-1.025); UMIC TRIGGER UACC YES; Urine Blood Negative (Negative); Urine Ketones Negative (Negative); Urine Protein Trace mg/dL (Neg-Trace)
[2025-02-16 15:10] LABS: Bacteria Urine 3+ (None Seen); Calcium Oxalate Crystals Urine Present; Hyaline Casts Urine 0-2 /LPF (0-2); RBC Urine 0-2 /HPF (0-2); Squamous Epithelial Cell Urine 0-2 /HPF (0-2); Transitional Epi Cells Urine Present; UACC Culture Trigger YES
--- NOTE | 2025-02-16 15:24 | PHA.MEDREC ---
Pharmacy Consult ? Medication Reconciliation Pharmacy has completed the medication reconciliation. List of medications faxed to pharmacy from assisted living, matches claim history.
[2025-02-16 16:07] LABS: Ethanol < 10 mg/dL
[2025-02-16 16:15] LABS: Troponin-I High Sensitivity 5.9 ng/L (<3.5-17.0)
[2025-02-16 16:24] LABS: Venous Blood Gas Refer to POC result
[2025-02-16 16:24] LABS: VBG Base Excess 14.1 mmol/L; VBG HCO3 42 mmol/L (22-26); VBG pCO2 69 mmHg; VBG pH 7.39 (7.32-7.43); VBG pO2 35 mmHg
--- NOTE | 2025-02-16 17:28 | P.HPHOSP_ITS ---
History of Present Illness Date of Service: 02/16/25 Chief Complaint: shortness of breath 59yo F resident of assisted living facility with COPD on 2L home O2, dementia, malnutrition, bipolar disorder, and oral HSV presenting with several days of worsening dyspnea, cough productive of yellow sputum, and wheezing with chest tightness. Here in the ED found to be quite tachypneic as high as 30-34. She was given Solu-medrol, magnesium, and multiple nebs. Flu/RSV/Covid negative, CXR with hyperinflation but no infiltrate. VBG pH 7.39, pCO2 69. Review of Systems 2 Review of Systems: Yes all other systems are reviewed and are negative [facility] Medical History Pulmonary nodule Acute on chronic hypoxic respiratory failure Major neurocognitive disorder Encounter for assessment of decision-making capacity Cognitive impairment Nicotine dependence, cigarettes, uncomplicated Anal itching Vaginal discharge Colonoscopy refused Palpitation Colon cancer screening Non-compliance Anorexia nervosa Underweight Urinary urgency Eczema Mammogram declined Family History Father Family history unknown Mother COPD (chronic obstructive pulmonary disease) Sister No problems noted. Sister COPD (chronic obstructive pulmonary disease) Surgical History History of cervical biopsy History of tonsillectomy History of surgery on arm Social History Household Members: None Housing: Apartment Do you presently have visiting nurse or other home services: No Alcohol intake: current Alcohol intake frequency: 0-2 drinks per day Alcohol type: hard liquor Patient Tobacco Use Status: Current everyday Tobacco user Tobacco use type: Cigarette Cigarettes Per Day: 10 Years Smoked: onset 13yo, 1ppd x 45yrs, now1/2ppd - 40pyh e-Cigarette/Vaping Use: Never Used Second Hand Smoke Exposure: No Use of substances other than those prescribed or required for medical reasons: No Substance Use Type: Marijuana Advance Directives: No Advance Directives Information Provided: Yes Do you have a plan to hurt others: No Plan service: No Current occupational status: disabled Sexual orientation: Straight/Heterosexual Gender identity: Female Cognitive needs: No Hearing needs: No Vision needs: No Meds Allergies Allergy/AdvReac Type Severity Reaction Status Date / Time No Known Allergies Allergy Verified 02/16/25 11:48 Active Medications: Current Medications Acetaminophen (Acetaminophen 325 Mg Tablet) 650 mg PO Q6H PRN PRN Reason: Pain, Mild 1-3,fever,headache Albuterol Sulfate (Albuterol Sulfate (0.083%) 2.5 Mg/3 Ml Vial.Neb) 2.5 mg INHALE Q2H PRN PRN Reason: Shortness of Breath/Wheezing Albuterol/Ipratropium (Albuterol/Iprat 2.5/0.5mg 3 Ml Ampul.Neb) 3 ml INHALE RQ4H WHILE AWAKE [facility] Calcium Carbonate (Calcium Carbonate 750 Mg Tab.Chew) 750 mg PO Q4H PRN PRN Reason: Heartburn Donepezil HCl (Donepezil Hcl 5 Mg Tablet) 5 mg PO BEDTIME [facility] Enoxaparin Sodium (Enoxaparin Sodium 40 Mg/0.4 Ml Syringe) 40 mg SUBCUT Q24H [facility] Fluticasone/Vilanterol (Fluticasone/Vilanterol 100/25 Blst.W.Dev) 1 puff INHALE RDAILY [facility] Hydroxyzine HCl (Hydroxyzine Hcl 25 Mg Tablet) 25 mg PO BID [facility] Magnesium Hydroxide (Milk Of Magnesia 30 Ml Oral.Susp) 30 ml PO DAILY PRN PRN Reason: Constipation Megestrol Acetate (Megestrol Acetate 20 Mg Tablet) 40 mg PO DAILY [facility] Melatonin (Melatonin 3 Mg Tablet) 6 mg PO BEDTIME PRN PRN Reason: Insomnia Methylprednisolone Sodium Succinate (Methylprednisolone Sod Succ 40 Mg/Ml Vial) 40 mg IVPUSH Q12H [facility] Mirtazapine (Mirtazapine 7.5 Mg Tablet) 7.5 mg PO BEDTIME [facility] Ondansetron HCl (Ondansetron Hcl 4 Mg/2 Ml Vial) 4 mg IVPUSH Q8H PRN PRN Reason: Nausea and Vomiting Quetiapine Fumarate (Quetiapine Fumarate 25 Mg Tablet) 25 mg PO BEDTIME [facility] Sertraline HCl (Sertraline Hcl 25 Mg Tablet) 75 mg PO DAILY [facility] Sodium Chloride (0.9 % Sodium Chloride Flush 3 Ml Syringe) 3 ml IVFLUSH QSHIFT [facility] Tiotropium Sims (Tiotropium Sims 2.5 Mcg 1 Puff/2.5 Mcg Mist.Inhal) 2 puff INHALE RDAILY [facility] Valacyclovir HCl (Valacyclovir Hcl 500 Mg Tablet) 500 mg PO DAILY [facility] Home Medications ?Medication ?Instructions ?Recorded ?Confirmed ?Last Taken ?Type ipratropium 0.5 mg-albuterol 3 mg 3 ml inhalation Q6H PRN wheezing 02/16/25 02/16/25 Unknown History (2.5 mg base)/3 mL nebulization soln ipratropium 0.5 mg-albuterol 3 mg 3 ml inhalation Q8H wheezing 02/16/25 02/16/25 Unknown History (2.5 mg base)/3 mL nebulization soln mirtazapine 7.5 mg tablet 7.5 mg PO BEDTIME 02/16/25 02/16/25 Unknown History sertraline 50 mg tablet 75 mg PO DAILY 02/16/25 02/16/25 Unknown History Physical Exam 2 Vital Signs and Narrative: Vital Signs: Last Vital Signs Temp 97.7 F 02/16/25 13:11 Pulse 88 02/16/25 14:13 Resp 26 H 02/16/25 14:13 BP 124/77 02/16/25 13:11 Pulse Ox 95 02/16/25 13:11 O2 Del Method Nasal Cannula 02/16/25 13:11 O2 Flow Rate 3 02/16/25 13:11 Oxygen Flow Rate 4 02/16/25 11:45 BMI result Body Mass Index 16.4 Gen: in moderate respiratory distress, extensive multiple wasting HEENT: sclera anicteric, moist mucus membranes Neck: supple Lungs: very tight, high-pitched wheezes expiratory, tachypneic Heart: regular rate and rhythm, no murmurs Abd: soft, non-tender, non-distended Ext: no edema Skin: warm/well-perfused Neuro: alert and oriented grossly but somewhat confused, no focal weakness Psych: restricted affect Results Labs 02/16/25 12:10 02/16/25 12:10 Labs: Laboratory Results - last 24 hr 02/16/25 02/16/25 02/16/25 12:04 12:10 14:49 MCV 92.2 MCH 28.6 MCHC 31.0 RDW 13.8 Plt Count 274 MPV 9.3 L Immature Gran % (Auto) 0.3 Neut % (Auto) 69.4 Lymph % (Auto) 19.2 L [place] % (Auto) 4.5 Eos % (Auto) 5.6 H Baso % (Auto) 1.0 Lymph # (Auto) 1.5 [place] # (Auto) 0.4 Eos # (Auto) 0.4 Baso # (Auto) 0.1 Abs Immat Gran (auto) 0.02 Absolute Neuts (auto) 5.4 Absolute Nucleated RBC 0.000 Nucleated RBC % (auto) 0.0 VBG pH VBG pCO2 VBG pO2 VBG HCO3 VBG O2 Saturation VBG Base Excess Anion Gap 13 Estim Creat Clear Calc 60.4 Estimated GFR > 60 Random Glucose 110 Calcium 9.4 Magnesium 1.8 Total Bilirubin 0.3 Direct Bilirubin 0.1 AST 22 ALT 16 Alkaline Phosphatase 31 L B-Natriuretic Peptide 34 Total Protein 7.6 Albumin 3.9 Urine Color Yellow Urine Appearance Cloudy Urine pH 6.5 Ur Specific [place] 1.015 Urine Protein Trace Urine Glucose (UA) Negative Urine Ketones Negative Urine Blood Negative Urine Nitrite Negative Ur Leukocyte Esterase Moderate (2+) H Urine RBC 0-2 Urine WBC 6-10 Ur Squamous Epith Cells 0-2 Ur Transition Epith Cell Present Calcium Oxalate Crystal Present Urine Bacteria 3+ Hyaline Casts 0-2 Ethyl Alcohol Influenza Type A (PCR) NEGATIVE Influenza Type B (PCR) NEGATIVE RSV RNA Qual (PCR) NEGATIVE SARS-CoV-2 RNA (RT-PCR) NEGATIVE 02/16/25 02/16/25 15:33 15:39 MCV MCH MCHC RDW Plt Count MPV Immature Gran % (Auto) Neut % (Auto) Lymph % (Auto) [place] % (Auto) Eos % (Auto) Baso % (Auto) Lymph # (Auto) [place] # (Auto) Eos # (Auto) Baso # (Auto) Abs Immat Gran (auto) Absolute Neuts (auto) Absolute Nucleated RBC Nucleated RBC % (auto) VBG pH 7.39 VBG pCO2 69 VBG pO2 35 VBG HCO3 42 H VBG O2 Saturation 63.0 VBG Base Excess 14.1 Anion Gap Estim Creat Clear Calc Estimated GFR Random Glucose Calcium Magnesium Total Bilirubin Direct Bilirubin AST ALT Alkaline Phosphatase B-Natriuretic Peptide Total Protein Albumin Urine Color Urine Appearance Urine pH Ur Specific [place] Urine Protein Urine Glucose (UA) Urine Ketones Urine Blood Urine Nitrite Ur Leukocyte Esterase Urine RBC Urine WBC Ur Squamous Epith Cells Ur Transition Epith Cell Calcium Oxalate Crystal Urine Bacteria Hyaline Casts Ethyl Alcohol < 10 Influenza Type A (PCR) Influenza Type B (PCR) RSV RNA Qual (PCR) SARS-CoV-2 RNA (RT-PCR) Assessment and Plan (1) COPD exacerbation: Status: Acute Plan 59yo F resident of assisted living facility with COPD on 2L home O2, dementia, malnutrition, bipolar disorder, and oral HSV presenting with several days of worsening dyspnea, cough productive of yellow sputum, and wheezing with chest tightness, found to be tachypneic in respiratory distress due to COPD exacerbation acute/chronic hypoxic/hypercarbic respiratory failure due to COPD exacerbation - admit to M/S, give IV methylprednisolone and nebulized albuterol/ipratropium, continue Breo + Spiriva, give doxycycline; hypercarbia compensated malnutrition - continue mirtazapine + megestrol; add dietary supplements dementia - continue donepezil anxiety - continue hydroxyzine, sertraline, quetiapine oral HSV - continue suppression with valacylovir VTE prophylaxis - enoxaparin dispo - TBD code status - full I anticipate that the patient will stay at least 2 midnights as an inpatient in the hospital due to the above reasons. It is neither reasonable nor safe to care for them in a less acute setting. Quality Stroke Does the patient have a stroke diagnosis?: No VTE Prior VTE?: No VTE Risk Level:: Medical - moderate - high VTE Device Contraindication: N/A - Device Ordered VTE Drug Contraindication: N/A - Med Ordered
[2025-02-16] MEDS: Enoxaparin Sodium 40 MG/0.4 ML SYRINGE SUBCUT (17:52)
[2025-02-16 18:23] LABS: Procalcitonin < 0.02 ng/mL
[2025-02-16] MEDS: Albuterol/Iprat 2.5/0.5MG 3 ML AMPUL.NEB INHALE (18:41)
[2025-02-16] MEDS: methylPREDNISolone Sod Succ 40 MG/ML VIAL IVPUSH (19:59)
[2025-02-16] MEDS: Mirtazapine 7.5 MG TABLET PO (22:29)
[2025-02-16] MEDS: Doxycycline Monohydrate 100 MG CAPSULE PO (22:30)
[2025-02-16] MEDS: Donepezil HCl 5 MG TABLET PO (22:30)
[2025-02-16] MEDS: hydrOXYzine HCL 25 MG TABLET PO (22:30)
[2025-02-16] MEDS: QUEtiapine Fumarate 25 MG TABLET PO (22:31)
[2025-02-16] MEDS: 0.9 % Sodium Chloride Flush 3 ML SYRINGE IVFLUSH (22:35)
[2025-02-17] VITALS (10 sets, daily range): BP systolic 105–135; BP diastolic 56–65; PULSE 76–100; RESP 18–20; TEMP 37–37.4; O2SAT 74–98; BMI 17.3
[2025-02-17 07:46] LABS: Venous Blood Gas Refer to POC result
[2025-02-17 07:46] LABS: VBG Base Excess 18.7 mmol/L; VBG HCO3 46 mmol/L (22-26); VBG pCO2 74 mmHg; VBG pO2 58 mmHg
[2025-02-17 07:57] LABS: Anion Gap 10 (12-20); Blood Urea Nitrogen 20 mg/dL (9-16); Calcium 9.6 mg/dL (8.4-10.2); Carbon Dioxide 36 mmol/L (22-29); Chloride 99 mmol/L (96-108); Creatinine Clr Calc Pharmacy 61.7; Estimated Glomerular Filt Rate > 60; Glucose Random 132 mg/dL (60-115); Potassium 3.8 mmol/L (3.3-5.1); Sodium 141 mmol/L (135-145)
[2025-02-17] MEDS: Albuterol/Iprat 2.5/0.5MG 3 ML AMPUL.NEB INHALE ×4 (08:02→21:11)
[2025-02-17] MEDS: Tiotropium Bromide 2.5 mcg 1 PUFF/2.5 MCG MIST.INHAL 2 PUFF INHALE (08:25)
[2025-02-17] MEDS: Fluticasone/Vilanterol 100/25 BLST.W.DEV 1 PUFF INHALE (08:25)
[2025-02-17] MEDS: hydrOXYzine HCL 25 MG TABLET PO ×2 (09:31→20:44)
[2025-02-17] MEDS: methylPREDNISolone Sod Succ 40 MG/ML VIAL IVPUSH ×2 (09:31→20:41)
[2025-02-17] MEDS: Doxycycline Monohydrate 100 MG CAPSULE PO ×2 (09:31→20:43)
[2025-02-17] MEDS: 0.9 % Sodium Chloride Flush 3 ML SYRINGE IVFLUSH ×2 (09:31→14:43)
[2025-02-17] MEDS: Sertraline HCL 25 MG TABLET 75 MG PO (09:31)
[2025-02-17] MEDS: valACYclovir HCL 500 MG TABLET PO (09:31)
[2025-02-17] MEDS: Megestrol Acetate 20 MG TABLET 40 MG PO (09:32)
--- NOTE | 2025-02-17 11:49 | MHC.CLN ---
PT IS MODERATELY MALNOURISHED PT WITH MILDLY DEPLETD SUBCUTANEOUS FAT AND MUSCLE MASS WITH BMI 16.1 AND CHRONIC POOR PO INTAKE R/T HX ANOREXIA NERVOSA AND BIPOLAR D/O FAMILIAR WITH PT FROM PREVIOUS ADMISSION; SEE ASSESSMENT DATED 08/20/24 ALTHOUGH, PT WITH 20% SIGNIFICANT WT GAIN X1 YEAR DESIRABLE. PT CONTINUES TO SHOW SIGNS OF MALNUTRITION GOAL WT 108# REGULAR DIET IN PLACE MD ADDED MAGIC CUP TID AND ENSURE TID RECOMMEND ENSURE BID TO PROVIDE 700KCALS, 40G PROTEIN MONITOR PO INTAKE AND ENCOURAGE SUPPLEMENTS
--- NOTE | 2025-02-17 14:51 | HO.PM.IMPN ---
Subjective Subjective Date of Service: 02/17/25 Interval History: No acute issues overnight. Minimal improvement in respiratory status Review of Systems Denies chest pain Admits shortness of breath that has not improved Denies nausea vomiting diarrhea Denies fever chills Physical Exam Vital Signs: Vital Signs: Last Vital Signs Temp 98.6 F 02/17/25 11:23 Pulse 100 02/17/25 12:06 Resp 18 02/17/25 12:06 BP 105/56 L 02/17/25 11:23 Pulse Ox 94 02/17/25 11:23 O2 Del Method Nasal Cannula 02/17/25 11:23 O2 Flow Rate 2 02/17/25 11:23 Oxygen Flow Rate 4 02/16/25 11:45 BMI result Body Mass Index 17.3 Const: Other: Awake alert oriented x3 in no acute distress Resp: Other: Diminished at bases with scattered expiratory wheezes Cardio: Other: No S4; positive S1-S2; no S3 murmurs rubs or gallops GI: Other: Soft nontender nondistended normoactive bowel sounds Extrem: Other: No edema bilaterally Objective Data Active Medications Acetaminophen (Acetaminophen 325 Mg Tablet) 650 mg PO Q6H PRN PRN Reason: Pain, Mild 1-3,fever,headache Albuterol Sulfate (Albuterol Sulfate (0.083%) 2.5 Mg/3 Ml Vial.Neb) 2.5 mg INHALE Q2H PRN PRN Reason: Shortness of Breath/Wheezing Albuterol/Ipratropium (Albuterol/Iprat 2.5/0.5mg 3 Ml Ampul.Neb) 3 ml INHALE RQ4H WHILE AWAKE [facility] Last Admin: 02/17/25 12:03 Dose: 3 ml Documented By: ARNOL Calcium Carbonate (Calcium Carbonate 750 Mg Tab.Chew) 750 mg PO Q4H PRN PRN Reason: Heartburn Donepezil HCl (Donepezil Hcl 5 Mg Tablet) 5 mg PO BEDTIME [facility] Last Admin: 02/16/25 22:30 Dose: 5 mg Documented By: TONY Doxycycline Monohydrate (Doxycycline Monohydrate 100 Mg Capsule) 100 mg PO BID [facility] Last Admin: 02/17/25 09:31 Dose: 100 mg Documented By: SOPHIA Enoxaparin Sodium (Enoxaparin Sodium 40 Mg/0.4 Ml Syringe) 40 mg SUBCUT Q24H [facility] Last Admin: 02/16/25 17:52 Dose: 40 mg Documented By: JARROD Fluticasone/Vilanterol (Fluticasone/Vilanterol 100/25 Blst.W.Dev) 1 puff INHALE RDAILY [facility] Last Admin: 02/17/25 08:25 Dose: 1 puff Documented By: MIGUEL Hydroxyzine HCl (Hydroxyzine Hcl 25 Mg Tablet) 25 mg PO BID [facility] Last Admin: 02/17/25 09:31 Dose: 25 mg Documented By: SOPHIA Magnesium Hydroxide (Milk Of Magnesia 30 Ml Oral.Susp) 30 ml PO DAILY PRN PRN Reason: Constipation Megestrol Acetate (Megestrol Acetate 20 Mg Tablet) 40 mg PO DAILY [facility] Last Admin: 02/17/25 09:32 Dose: 40 mg Documented By: SOPHIA Melatonin (Melatonin 3 Mg Tablet) 6 mg PO BEDTIME PRN PRN Reason: Insomnia Methylprednisolone Sodium Succinate (Methylprednisolone Sod Succ 40 Mg/Ml Vial) 40 mg IVPUSH Q12H [facility] Last Admin: 02/17/25 09:31 Dose: 40 mg Documented By: SOPHIA Mirtazapine (Mirtazapine 7.5 Mg Tablet) 7.5 mg PO BEDTIME [facility] Last Admin: 02/16/25 22:29 Dose: 7.5 mg Documented By: TONY Ondansetron HCl (Ondansetron Hcl 4 Mg/2 Ml Vial) 4 mg IVPUSH Q8H PRN PRN Reason: Nausea and Vomiting Quetiapine Fumarate (Quetiapine Fumarate 25 Mg Tablet) 25 mg PO BEDTIME [facility] Last Admin: 02/16/25 22:31 Dose: 25 mg Documented By: TONY Sertraline HCl (Sertraline Hcl 25 Mg Tablet) 75 mg PO DAILY [facility] Last Admin: 02/17/25 09:31 Dose: 75 mg Documented By: SOPHIA Sodium Chloride (0.9 % Sodium Chloride Flush 3 Ml Syringe) 3 ml IVFLUSH QSHIFT [facility] Last Admin: 02/17/25 14:43 Dose: 3 ml Documented By: JETHRO Tiotropium [place] (Tiotropium [place] 2.5 Mcg 1 Puff/2.5 Mcg Mist.Inhal) 2 puff INHALE RDAILY [facility] Last Admin: 02/17/25 08:25 Dose: 2 puff Documented By: MIGUEL Valacyclovir HCl (Valacyclovir Hcl 500 Mg Tablet) 500 mg PO DAILY [facility] Last Admin: 02/17/25 09:31 Dose: 500 mg Documented By: DONIIT Labs 02/16/25 12:10 02/17/25 07:28 Labs: Laboratory Results - last 24 hr 02/16/25 02/16/25 02/16/25 12:10 14:49 15:33 Hold Purple Top VBG pH VBG pCO2 VBG pO2 VBG HCO3 VBG O2 Saturation VBG Base Excess Anion Gap Estim Creat Clear Calc Estimated GFR Random Glucose Calcium Procalcitonin < 0.02 Urine Color Yellow Urine Appearance Cloudy Urine pH 6.5 Ur Specific [place] 1.015 Urine Protein Trace Urine Glucose (UA) Negative Urine Ketones Negative Urine Blood Negative Urine Nitrite Negative Ur Leukocyte Esterase Moderate (2+) H Urine RBC 0-2 Urine WBC 6-10 Ur Squamous Epith Cells 0-2 Ur Transition Epith Cell Present Calcium Oxalate Crystal Present Urine Bacteria 3+ Hyaline Casts 0-2 Ethyl Alcohol < 10 02/16/25 02/17/25 02/17/25 15:39 07:28 07:43 Hold Purple Top SEE NOTE VBG pH 7.39 7.40 VBG pCO2 69 74 VBG pO2 35 58 VBG HCO3 42 H 46 H VBG O2 Saturation 63.0 90.0 VBG Base Excess 14.1 18.7 Anion Gap 10 L Estim Creat Clear Calc 61.7 Estimated GFR > 60 Random Glucose 132 H Calcium 9.6 Procalcitonin Urine Color Urine Appearance Urine pH Ur Specific [place] Urine Protein Urine Glucose (UA) Urine Ketones Urine Blood Urine Nitrite Ur Leukocyte Esterase Urine RBC Urine WBC Ur Squamous Epith Cells Ur Transition Epith Cell Calcium Oxalate Crystal Urine Bacteria Hyaline Casts Ethyl Alcohol Microbiology Microbiology Results: Microbiology 02/16/25 15:33 Urine Culture - Preliminary Urine clean catch - Clean Catch Midstream Culture too young to evaluate. 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, without behavioral disturbance: Status: Acute Plan 59yo F resident of assisted living facility with COPD on 2L home O2, dementia, malnutrition, bipolar disorder, and oral HSV presenting with several days of worsening dyspnea, cough productive of yellow sputum, and wheezing with chest tightness, found to be tachypneic in respiratory distress due to COPD exacerbation 1.Acute/chronic hypoxic/hypercarbic respiratory failure due to COPD exacerbation -IV methylprednisolone -DuoNebs q.4 hours while awake -doxycycline/azithromycin (2) 2.Malnutrition - continue mirtazapine + megestrol; add dietary supplements 3Dementia -stable and well compensated -continue current therapies enoxaparin full code Patient requires ongoing hospitalization for IV steroids and antibiotics to treat COPD exacerbation Quality Stroke Does the patient have a stroke diagnosis?: No VTE Prior VTE?: No VTE Risk Level:: Medical - moderate - high VTE Device Contraindication: N/A - Device Ordered VTE Drug Contraindication: N/A - Med Ordered
--- NOTE | 2025-02-17 15:29 | MHC.CM.PN ---
IMM 02/17/25 Female DX COPD Exacerbation Lives [facility]. 2L o2 via [place] baseline. She uses a walker to carry her Oxygen. HCP is on file. Per dtr patient will be active with [facility] by the end of this week. Patient dtr will provide transportation home. DP Home with [facility]. Dtr will transport home.
[2025-02-17] MEDS: Enoxaparin Sodium 40 MG/0.4 ML SYRINGE SUBCUT (17:27)
[2025-02-17] MEDS: Melatonin 3 MG TABLET 6 MG PO (20:43)
[2025-02-17] MEDS: Donepezil HCl 5 MG TABLET PO (20:43)
[2025-02-17] MEDS: Mirtazapine 7.5 MG TABLET PO (20:44)
[2025-02-17] MEDS: QUEtiapine Fumarate 25 MG TABLET PO (20:44)
[2025-02-18 03:12] VITALS: BP 110/58; PULSE 68; RESP 20; TEMP 36.6; O2SAT 96
[2025-02-18] MEDS: 0.9 % Sodium Chloride Flush 3 ML SYRINGE IVFLUSH ×2 (03:42→07:24)
[2025-02-18 07:18] VITALS: BP 111/69; PULSE 76; RESP 18; TEMP 37.1; O2SAT 96
[2025-02-18] MEDS: valACYclovir HCL 500 MG TABLET PO (07:23)
[2025-02-18] MEDS: methylPREDNISolone Sod Succ 40 MG/ML VIAL IVPUSH (07:23)
[2025-02-18] MEDS: Sertraline HCL 25 MG TABLET 75 MG PO (07:24)
[2025-02-18] MEDS: Megestrol Acetate 20 MG TABLET 40 MG PO (07:24)
[2025-02-18] MEDS: hydrOXYzine HCL 25 MG TABLET PO (07:24)
[2025-02-18] MEDS: Doxycycline Monohydrate 100 MG CAPSULE PO (07:24)
[2025-02-18] MEDS: Fluticasone/Vilanterol 100/25 BLST.W.DEV 1 PUFF INHALE (07:36)
[2025-02-18] MEDS: Tiotropium Bromide 2.5 mcg 1 PUFF/2.5 MCG MIST.INHAL 2 PUFF INHALE (07:37)
[2025-02-18] MEDS: Albuterol/Iprat 2.5/0.5MG 3 ML AMPUL.NEB INHALE ×2 (07:39→11:20)
[2025-02-18 07:40] VITALS: PULSE 76; RESP 18; O2SAT 94
--- NOTE | 2025-02-18 10:21 | PC.RT ---
Pt is 2L O2 dependent at baseline w/ [employer]. RT walked pt. No changes to home prescription required. aware. Pt given [employer] tank to go home w/.
--- NOTE | 2025-02-18 10:25 | MHC.CLN ---
F/U DIET=REGULAR. PATIENT IS MODERATELY MALNOURISHED. CONTINUE NUTRITIONAL SUPPLEMENTS MAGIC CUP TID (870 KCALS, 27 G PROTEIN) AND ENSURE BID (700 KCALS, 40 G PROTEIN). INTAKE APPEARS TO BE GOOD. FOLLOW FOR PO INTAKE.
[2025-02-18 11:21] VITALS: PULSE 76; RESP 18; O2SAT 94
--- NOTE | 2025-02-18 11:23 | PM.DS ---
DS: Providers Provider Date of Service: 02/18/25 Date of admission: 02/16/25 17:10 Date of discharge: 02/18/25 Primary care physician: Vito Bael MD DS: Diagnosis Discharge Diagnosis (1) Acute exacerbation of chronic obstructive pulmonary disease: Status: Acute (2) Major neurocognitive disorder due to Alzheimer disease, without behavioral disturbance: Status: Acute DS: Summary Hospital Course Hospital Course: 59yo F resident of assisted living facility with COPD on 2L home O2, dementia, malnutrition, bipolar disorder, and oral HSV presenting with several days of worsening dyspnea, cough productive of yellow sputum, and wheezing with chest tightness. Here in the ED found to be quite tachypneic as high as 30-34. She was given Solu-medrol, magnesium, and multiple nebs. Flu/RSV/Covid negative, CXR with hyperinflation but no infiltrate. VBG pH 7.39, pCO2 69. Hospital Course Patient admitted to general medical floor and started on oral doxycycline and IV methylprednisolone. Initially her oxygen requirement exceeded data of her home requirement of 2 L however over her hospitalization her oxygen was able to be weaned down to home levels. On the day of discharge she was ambulated by respiratory therapy and does not require any additional oxygen other than what she has not home during ambulation. She will be discharge to complete a course of oral doxycycline and prednisone. She can follow up with the PCP next available Time Attestation Discharge Coordination Time (in mins): 35 Quality: Safe Use of Opioids Does Pt have an Active Cancer Diagnosis on the Problem List?: No Quality: Stroke Does the patient have a stroke diagnosis?: No Physical Exam Vital Signs: Vital Signs: Last Vital Signs Temp 98.8 F 02/18/25 07:18 Pulse 76 02/18/25 11:21 Resp 18 02/18/25 11:21 BP 111/69 02/18/25 07:18 Pulse Ox 96 02/18/25 07:18 O2 Del Method Nasal Cannula 02/18/25 03:12 O2 Flow Rate 2 02/18/25 03:12 Oxygen Flow Rate 4 02/16/25 11:45 BMI result Body Mass Index 17.3 Const: Other: Awake alert oriented x3 in no acute distress Resp: Other: Diminished at bases with scattered expiratory wheezes Cardio: Other: No S4; positive S1-S2; no S3 murmurs rubs or gallops GI: Other: Soft nontender nondistended normoactive bowel sounds Extrem: Other: No edema bilaterally Discharge Plan Discharge Anticipated Discharge Date/Time: 02/18/25 11:17 Patient Disposition: Home Health Service Discharge Diagnosis: COPD exacerbation Referrals: Vito Beal MD [Primary Care Provider] - 1 Week Discharge Medications: New doxycycline monohydrate 100 mg Capsule 100 mg PO BID Qty: 14 0RF prednisone 10 mg tablet See Rx Instructions .Route .COMPLEX Qty: 45 0RF Rx Instructions: 10 mg orally; 5 tabs p.o. daily x3 days; 4 tabs p.o. daily x3 days; 3 tabs daily x3 days; 2 tabs daily x3 days; 1 tab daily x3 days Continued megestrol 40 mg tablet 40 mg PO DAILY 90 Days Qty: 90 3RF fluticasone propion-salmeterol [Wixela Inhub] 250-50 mcg/dose blister with device 1 inh inhalation BID 30 Days Qty: 60 3RF donepezil 5 mg tablet 5 mg PO BEDTIME Qty: 30 6RF albuterol sulfate 90 mcg/actuation HFA aerosol inhaler 2 puff inhalation Q4-6H PRN (Reason: for wheezing) Qty: 8.5 3RF hydroxyzine HCl 25 mg tablet 25 mg PO BID 30 Days Qty: 60 0RF tiotropium bromide [Spiriva with HandiHaler] 18 mcg capsule, w/inhalation device 1 cap inhalation DAILY 30 Days Qty: 30 3RF Rx Instructions: puncture 1 cap using device; one dose = 2 inhalations valacyclovir 500 mg tablet 500 mg PO DAILY Qty: 90 0RF mirtazapine 7.5 mg Tablet 7.5 mg PO BEDTIME ipratropium-albuterol 0.5 mg-3 mg(2.5 mg base)/3 mL solution for nebulization 3 ml inhalation Q6H PRN (Reason: wheezing) ipratropium-albuterol 0.5 mg-3 mg(2.5 mg base)/3 mL solution for nebulization 3 ml inhalation Q8H sertraline 50 mg tablet 75 mg PO DAILY (DME) nebulizer with all supplies See Rx Instructions .Route .MEDSUPPLY Qty: 1 0RF Rx Instructions: As directed quetiapine [Seroquel] 25 mg tablet 25 mg PO BEDTIME 90 Days Qty: 90 0RF clobetasol 0.05 % cream 1 appl topical BEDTIME PRN (Reason: Left external ear eczema) 30 Days Qty: 30 0RF Discharge Orders: Discharge Order (Routine); Ordered 02/18/25 Ordered By: Guille Sales Diet: Advance to usual diet Activity on Discharge: As tolerated Stand Alone Forms: Patient Portal Discharge page Print Language: Stateless Care Plan Goals: Resume all medicine as taken prior to hospitalization Health Concerns: Doxycycline 100 mg twice daily for 1 week has been added as well as a prednisone taper. Complete these as directed Plan of Treatment: Follow up with your PCP next available Assessment: See discharge summary
[2025-02-18 12:00] VITALS: BP 117/57; PULSE 96; RESP 18; TEMP 36.8; O2SAT 95
--- NOTE | 2025-02-18 12:07 | MHC.CM.PN ---
pt dcd back to assisted living
--- NOTE | 2025-02-18 18:50 | P.CDIM_ITS ---
PROVIDER RESPONSE TEXT: To clarify, the appropriate diagnosis supported by the clinical indicators: Mild QUERY TEXT: PHYSICIAN'S DOCUMENTATION REQUEST Date of Query: 02/18/2025 11:18 AM EDT Patient Name: Mara Walker Admit Date: 02/16/2025 Dear Guille Sales DO, A review of the medical record indicates additional documentation may be needed. Please review below and update the documentation accordingly. Documentation includes the diagnosis of malnutrition. Progress note 02/17/25 - Malnutrition Continue mirtazapine, megestrol, add dietary supplements. BMI 17.3 45.7kg If possible, please provide additional specificity regarding the severity of the malnutrition using t he above information: Mild Moderate Severe Other (explain) Clinically unable to determine (explain) Thank you, Zelda Thomas, CCS, CDIS Use of terms such as suspected, likely, concern for, or probable (associated with a specific diagnosi s that is being evaluated, monitored, or treated as if it exists) are acceptable and can be coded in the inpatient se tting, when documented at the time of discharge. Please use your independent medical judgment in providing your response. THIS QUERY IS PART OF THE PERMANENT MEDICAL RECORD
== END 2025-02-18 12:17 | disposition home health service (06) | DRG 191 ==
LOC: HO.ED 14:57 → HO.EDOVER 18:14 → HO.S3 19:51
PROVIDERS: Physician Assistant; Admitting Provider Family Medicine; Emergency Provider Emergency Medicine; PCP Internal Medicine; Visit Provider Hospitalist
DX: J44.1 Chronic obstructive pulmonary disease with (acute) exacerbation (principal); E44.1 Mild protein-calorie malnutrition; J96.12 Chronic respiratory failure with hypercapnia; Z68.1 Body mass index [BMI] 19.9 or less, adult; B00.9 Herpesviral infection, unspecified; F03.90 Unspecified dementia, unspecified severity, without behavioral disturbance, psychotic disturbance, mood disturbance, and anxiety; F41.9 Anxiety disorder, unspecified; F17.210 Nicotine dependence, cigarettes, uncomplicated; Z71.6 Tobacco abuse counseling; Z20.822 Contact with and (suspected) exposure to COVID-19; Z99.81 Dependence on supplemental oxygen; Z87.891 Personal history of nicotine dependence; Z79.899 Other long term (current) drug therapy
CPT/HCPCS: 0241U; 36415; 71045; 80048; 80076; 80307; 81001; 82803; 83735; 83880; 84145; 84484; 85025; 87086; 93005; 94640; 99285; J1650; J2919; J3475

== ENCOUNTER → 2025-02-16 11:43 | Outpatient (BNV) | payer MEDICARE, SELFPAY | PROVIDERS: Admitting Provider Family Medicine; Emergency Provider Emergency Medicine; PCP Internal Medicine; Visit Provider Internal Medicine | DX: R94.31 Abnormal electrocardiogram [ECG] [EKG] (principal); R06.02 Shortness of breath | CPT/HCPCS: 93010 ==

== ENCOUNTER → 2025-02-16 12:04 | Outpatient (BNV) | payer MEDICARE, SELFPAY | PROVIDERS: Emergency Provider Emergency Medicine; PCP Internal Medicine; Visit Provider Family Medicine | DX: J44.1 Chronic obstructive pulmonary disease with (acute) exacerbation (principal); G30.9 Alzheimer's disease, unspecified; F02.80 Dementia in other diseases classified elsewhere, unspecified severity, without behavioral disturbance, psychotic disturbance, mood disturbance, and anxiety | CPT/HCPCS: 99223; 99233; 99239 ==

== ENCOUNTER → 2025-02-16 13:41 | Outpatient (BNV) | payer MEDICARE, SELFPAY | PROVIDERS: Emergency Provider Emergency Medicine; PCP Internal Medicine; Visit Provider Radiology Diagnostic Radiology | DX: J43.9 Emphysema, unspecified (principal) | CPT/HCPCS: 71045 ==

== ENCOUNTER 2025-02-25 12:16 | Outpatient (AMB) | payer MEDICARE, MEDICAID, SELFPAY ==
[2025-02-25 12:25] VITALS: BP 110/66; PULSE 90; O2SAT 95; BMI 16.4
--- NOTE | 2025-02-25 12:25 | A.OFFPC_ITS ---
Vital Signs 02/25/25 12:25 Height 5 ft 4 in Weight 95 lb 6 oz BMI 16.4 BP 110/66 Blood Pressure Location Lt brachial Position Sitting Pulse 90 Pulse Source Pulse Oximeter Pulse Oximetry (%) 95 Oxygen Delivery Method Room Air Intake Visit Reasons: TCM Allergies No Known Allergies Allergy (Verified 02/16/25 11:48) Medication List - Last Reconciled 02/25/25 by Vito Beal MD albuterol sulfate 90 mcg/actuation 2 puffs inhalation Q4-6H PRN clobetasol 0.05% 1 appl topical BEDTIME PRN 30 days donepezil 5 mg PO BEDTIME fluticasone propion-salmeterol 250-50 mcg/dose (Wixela Inhub) 1 inh inhalation BID 30 days hydroxyzine HCl 25 mg PO BID 30 days ipratropium-albuterol 0.5 mg-3 mg(2.5 mg base)/3 mL 3 mL inhalation Q6H PRN ipratropium-albuterol 0.5 mg-3 mg(2.5 mg base)/3 mL 3 mL inhalation Q8H megestrol 40 mg PO DAILY 90 days mirtazapine 7.5 mg PO BEDTIME [nebulizer with all supplies As directed] quetiapine (Seroquel) 25 mg PO BEDTIME 90 days sertraline 75 mg PO DAILY tiotropium bromide (Spiriva with HandiHaler) 1 cap inhalation DAILY 30 days valacyclovir 500 mg PO DAILY Tobacco use date assessed: 01/06/25 Dental Screening Dental Screen Date: 01/06/25 HPI TCM HPI Details Date of admission 02/16/2025 date of discharge 02/18/2025 [facility] Patient is 59-year-old female with a history of cognitive impairment, COPD on home oxygen, tobacco abuse, bipolar disorder, malnutrition presented to emergency room via EMS from assisted living complaining of worsening cough and shortness a breath. Oxygen saturation was 88% on 3 L of oxygen Viral testing was negative Troponin 5.1 Chest x-ray showed hyperinflation with emphysema She was treated with IV Solu-Medrol IV magnesium and hospitalized With a diagnosis of acute exacerbation of COPD She came in today for follow-up after discharge While admitted patient was treated with doxycycline and prednisone She sees foreclosure specialist [facility] on regular basis for severe COPD oxygen dependent Patient is back to her baseline pulse ox is 95% on room air She also take psychiatric medications through Psychiatry And dementia medication through neurology HPI Comments History of Present Illness Details Date of admission/discharge: 02/16/2025 to 02/18/2025 Facility: [facility] Discharge 2/current location: Assisted living Diagnosis/procedure: Chest x-ray EKG New/DC medications: None Changed medication/dozing: Not applied Pending labs/tests: None Call to patient: Date/time: 02/19/2025 Outcome was able to reach the patient How are you feeling? Same as before shortness a breath oxygen dependent Any pain or discomfort? Do you have any questions about your condition or discharge instructions? No Were you able to get her medications filled? Yes Do you have any questions about your medications? No Were you able to schedule your follow-up appointments? Yes If home health was ordered, have they contacted you? None ordered Any outpatient services, if so, are you scheduled? Pulmonary rehab already has appointment Are there any additional resources like transportation you might need during your recovery? No Educational needs/resources: Provided What support system do you have? Living in assisted living [facility] Medical History Pulmonary nodule Acute on chronic hypoxic respiratory failure Major neurocognitive disorder Encounter for assessment of decision-making capacity Cognitive impairment Nicotine dependence, cigarettes, uncomplicated Anal itching Vaginal discharge Colonoscopy refused Palpitation Colon cancer screening Non-compliance Anorexia nervosa Underweight Urinary urgency Eczema Mammogram declined Surgical History History of cervical biopsy History of tonsillectomy History of surgery on arm Family History Father Family history unknown Mother COPD (chronic obstructive pulmonary disease) Sister No problems noted. Sister COPD (chronic obstructive pulmonary disease) Social History Household Members: None Housing: Assisted Living Facility Do you presently have visiting nurse or other home services: No Alcohol intake: current Alcohol intake frequency: 0-2 drinks per day Alcohol type: hard liquor Patient Tobacco Use Status: Former Tobacco user Tobacco use type: Cigarette Cigarette Packs Per Day: 1 Cigarettes Per Day: 20.0 Years Smoked: 40 Packs Per Year: 40 Packs per year/per ci.00 e-Cigarette/Vaping Use: Never Used Second Hand Smoke Exposure: No Substance Use Type: Marijuana service: No Current occupational status: disabled Sexual orientation: Straight/Heterosexual Gender identity: Female Cognitive needs: No Hearing needs: No Vision needs: No Questionnaire PHQ-9 Over the last 2 weeks, how often have you been bothered by any of the following problems? 1. Little interest or pleasure in doing things: not at all 2. Feeling down, depressed, or hopeless: several days 3. Trouble falling or staying asleep, or sleeping too much: not at all 4. Feeling tired or having little energy: more than half the days 5. Poor appetite or overeating: not at all 6. Feeling bad about yourself - or that you are a failure or have let yourself or your family down: several days 7. Trouble concentrating on things, such as reading the newspaper or watching television: several days 8. Moving or speaking so slowly that other people could have noticed. Or the opposite - being so fidgety or restless that you have been moving around a lot more than usual: not at all 9. Thoughts that you would be better off or of hurting yourself in some way: not at all Total score: 5 Depression Screening Interpretation: Negative Depression Screening Done: Yes 92081 - PHQ-9 Billing: Yes Source: Developed by Drs. Ganga Bauer, Brooklyn Benedict, Dionte Puente and colleagues, with an educational albert from [employer]. Thrive Questionnaire Date Thrive assessed: 02/17/25 I am a: Patient What is your living situation today?: I choose not to answer this question Within the past 12 months, did the food you bought not last and you didn't have the money to get more?: I choose not to answer this question Within the past 12 months, did you worry whether your food would run out before you got money to buy more?: I choose not to answer this question Do you have trouble paying for medicines?: I choose not to answer this question Do you have trouble getting transportation to medical appointments?: I choose not to answer this question Do you have trouble paying your heating and electricity bill?: I choose not to answer this question Do you have trouble taking care of your child, family member or friend?: I choose not to answer this question Do you have trouble with day-to-day activities such as bathing, preparing meals, shopping, managing finances, etc.?: I choose not to answer this question Are you currently unemployed and looking for a job?: I choose not to answer this question Are you interested in more education?: I choose not to answer this question Please select the resources that you would like help with: None Currently or been in a relationship where the following occur: I choose not to answer THRIVE Score: 0 AUDIT C Alcohol Use Questionnaire (AUDIT-C) 1. How often do you have a drink containing alcohol?: 2-3 times a week 2. How many drinks containing alcohol do you have on a typical day when you are drinking?: 1 or 2 3. How often do you have six or more drinks on one occasion?: Never Total Score: 3 STEVE-7 AMB Questionnaire STEVE-7 Date STEVE - 7 assessed: 09/05/24 Feeling nervous, anxious, or on edge: 1 = Several days Not being able to stop or control worryin = Several days Worrying too much about different things: 1 = Several days Trouble relaxin = Several days Being so restless that it is hard to sit still: 1 = Several days Becoming easily annoyed or irritable: 1 = Several days Feeling afraid as if something awful might happen: 1 = Several days Total STEVE-7 score (0-4 normal; 5-9 mild; 10-14 moderate; 15-21 severe): 7 Source: Developed by Drs. Ganga Bauer, Brooklyn Benedict, Dionte Puente and colleagues, with an educational albert from [employer]. Review of Systems Const Denies chills and Denies fever(s) ENT Denies epistaxis and Denies nasal discharge Card Denies chest pain Resp Denies chest congestion and Denies hemoptysis GI Denies diarrhea and Denies nausea Skin/Breast Denies rash Neuro Reports no additional complaints Psych Reports no additional complaints Endo Reports no additional complaints Physical exam (Primary Care) Vital Signs: Last Vital Signs Pulse 90 02/25/25 12:25 BP 110/66 02/25/25 12:25 Pulse Ox 95 02/25/25 12:25 Oxygen Delivery Method Room Air 02/25/25 12:25 BMI result Body Mass Index 16.4 Tobacco/Smoking Status: Tobacco use Status Tobacco use date assessed 01/06/25 02/25/25 12:28 Patient Tobacco Use Status Former Tobacco user 02/25/25 12:28 Tobacco use type Cigarette 02/25/25 12:28 e-Cigarette/Vaping Use Never Used 02/25/25 12:28 PHQ-9: PHQ-9 Score PHQ-9: Total score 5 02/25/25 12:43 Depression Screening Interpretation: Negative Thrive Assessment: Date of Thrive Assessment Date Thrive assessed 02/25/25 02/25/25 12:33 Currently or been in a relationship where the following occur: I choose not to answer Const General: cooperative and no acute distress Orientation/consciousness: patient oriented x3 HENMT Head: Yes normocephalic Eyes General: appearance normal, both eyes and all related structures Neck Neck: Yes supple Resp Other: breathing at her baseline, minimal airflow, mild wheezing Effort & Inspection: no cough and no stridor Cardio Rhythm: regular rhythm Heart sounds: S1 normal heart sound present and S2 normal heart sound present Skin General skin exam: turgor normal Neuro General: patient oriented x3, tone normal and moves all extremities Extrem Right lower extremity: no edema Left lower extremity: no edema Coding Level of Care Code TCM Mod MDM <= 7 Days Diagnoses Hospital discharge follow-up Z09 COPD exacerbation J44.1 Chronic hypoxic respiratory failure J96.11 Oxygen dependent Z99.81 Moderate late onset Alzheimer's dementia without behavioral disturbance, psychotic disturbance, mood disturbance, or anxiety G30.1; F02.B0 Alzheimer's disease onset: late onset Dementia behavioral or psychological symptom: without behavioral, psychotic, or mood disturbance or anxiety Dementia severity: moderate Dementia type: Alzheimer's Additional Codes PHQ-9 - 59082 - PHQ-9 Billing: Yes ([id number]) Assessment & Plan Assessment & Plan (1) Hospital discharge follow-up: Code(s): Z09 - Encounter for follow-up examination after completed treatment for conditions other than malignant neoplasm Category: Medical (2) COPD exacerbation: Comment: She was treated for an acute exacerbation of COPD. At present seems to be at baseline. There is no evidence of any respiratory infection. Code(s): J44.1 - Chronic obstructive pulmonary disease with (acute) exacerbation Category: Medical (3) Chronic hypoxic respiratory failure: Comment: Patient has chronic hypoxemic and hypercapnic respiratory failure. Presence of hypercapnia makes her cognitive impairment worse Last venous blood gas study showed pCO2 64 , down from 81 and 79. She has picture of compensated respiratory failure. She has poor understanding of using O2 properly, She came to the office with empty portable cylinder, When in the car she does smoke cigarettes along with using portable oxygen. THIS INDICATES THAT SHE IS RISK WHEN DRIVING , FOR HERSELF WELL FOR PUBLIC. 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, Code(s): F03.90 - Unspecified dementia, unspecified severity, without behavioral disturbance, psychotic disturbance, mood disturbance, and anxiety Category: Medical Qualifiers: Alzheimer's disease onset: late onset Dementia behavioral or psychological symptom: without behavioral, psychotic, or mood disturbance or anxiety Dementia severity: moderate Dementia type: Alzheimer's Qualified Code(s): G30.1 - Alzheimer's disease with late onset; F02.B0 - Dementia in other diseases classified elsewhere, moderate, without behavioral disturbance, psychotic disturbance, mood disturbance, and anxiety Plan Date of admission 02/16/2025 date of discharge 02/18/2025 [facility] Patient is 59-year-old female with a history of cognitive impairment, COPD on home oxygen, tobacco abuse, bipolar disorder, malnutrition presented to emergency room via EMS from assisted living complaining of worsening cough and shortness a breath. Oxygen saturation was 88% on 3 L of oxygen Viral testing was negative Troponin 5.1 Chest x-ray showed hyperinflation with emphysema She was treated with IV Solu-Medrol IV magnesium and hospitalized With a diagnosis of acute exacerbation of COPD She came in today for follow-up after discharge While admitted patient was treated with doxycycline and prednisone She sees foreclosure specialist [facility] on regular basis for severe COPD oxygen dependent Patient is back to her baseline pulse ox is 95% on room air She also take psychiatric medications through Psychiatry And dementia medication through neurology I am prescribing prednison 10 mg once a day for 10 days with one refill mean while i would rec for daughter to call pulmonary and book apt for follow up discuss ongoing low dose prednison treatment Medications: New prednisone 10 mg PO DAILY 10 tabs 1RF 10 days
--- NOTE | 2025-02-25 12:25 | A.OFFPC_ITS ---
Vital Signs 02/25/25 12:25 Height 5 ft 4 in Weight 95 lb 6 oz BMI 16.4 BP 110/66 Blood Pressure Location Lt brachial Position Sitting Pulse 90 Pulse Source Pulse Oximeter Pulse Oximetry (%) 95 Oxygen Delivery Method Room Air Intake Visit Reasons: TCM Allergies No Known Allergies Allergy (Verified 02/16/25 11:48) Tobacco use date assessed: 01/06/25 Dental Screening Dental Screen Date: 01/06/25 HPI TCM TCM Information Date of Discharge 02/18/25 Discharged From [facility] Interactive Contact Date (Reference documentation from this date) 02/19/25 [facility] Medical History Pulmonary nodule Acute on chronic hypoxic respiratory failure Major neurocognitive disorder Encounter for assessment of decision-making capacity Cognitive impairment Nicotine dependence, cigarettes, uncomplicated Anal itching Vaginal discharge Colonoscopy refused Palpitation Colon cancer screening Non-compliance Anorexia nervosa Underweight Urinary urgency Eczema Mammogram declined Surgical History History of cervical biopsy History of tonsillectomy History of surgery on arm Family History Father Family history unknown Mother COPD (chronic obstructive pulmonary disease) Sister No problems noted. Sister COPD (chronic obstructive pulmonary disease) Social History Household Members: None Housing: Assisted Living Facility Do you presently have visiting nurse or other home services: No Alcohol intake: current Alcohol intake frequency: 0-2 drinks per day Alcohol type: hard liquor Patient Tobacco Use Status: Former Tobacco user Tobacco use type: Cigarette Cigarette Packs Per Day: 1 Cigarettes Per Day: 20.0 Years Smoked: 40 e-Cigarette/Vaping Use: Never Used Second Hand Smoke Exposure: No Substance Use Type: Marijuana service: No Current occupational status: disabled Sexual orientation: Straight/Heterosexual Gender identity: Female Cognitive needs: No Hearing needs: No Vision needs: No Questionnaire PHQ-9 Over the last 2 weeks, how often have you been bothered by any of the following problems? 1. Little interest or pleasure in doing things: not at all 2. Feeling down, depressed, or hopeless: several days 3. Trouble falling or staying asleep, or sleeping too much: not at all 4. Feeling tired or having little energy: more than half the days 5. Poor appetite or overeating: not at all 6. Feeling bad about yourself - or that you are a failure or have let yourself or your family down: several days 7. Trouble concentrating on things, such as reading the newspaper or watching television: several days 8. Moving or speaking so slowly that other people could have noticed. Or the opposite - being so fidgety or restless that you have been moving around a lot more than usual: not at all 9. Thoughts that you would be better off or of hurting yourself in some way: not at all Total score: 5 Depression Screening Interpretation: Negative Depression Screening Done: Yes 12965 - PHQ-9 Billing: Yes Source: Developed by Drs. Ganga Bauer, [place] Benedict, Dionte Puente and colleagues, with an educational albert from [employer]. Thrive Questionnaire Date Thrive assessed: 02/25/25 I am a: Patient What is your living situation today?: I choose not to answer this question Within the past 12 months, did the food you bought not last and you didn't have the money to get more?: I choose not to answer this question Within the past 12 months, did you worry whether your food would run out before you got money to buy more?: I choose not to answer this question Do you have trouble paying for medicines?: I choose not to answer this question Do you have trouble getting transportation to medical appointments?: I choose not to answer this question Do you have trouble paying your heating and electricity bill?: I choose not to answer this question Do you have trouble taking care of your child, family member or friend?: I choose not to answer this question Do you have trouble with day-to-day activities such as bathing, preparing meals, shopping, managing finances, etc.?: I choose not to answer this question Are you currently unemployed and looking for a job?: I choose not to answer this question Are you interested in more education?: I choose not to answer this question Please select the resources that you would like help with: None Currently or been in a relationship where the following occur: I choose not to answer THRIVE Score: 0 AUDIT C Alcohol Use Questionnaire (AUDIT-C) 1. How often do you have a drink containing alcohol?: 2-3 times a week 2. How many drinks containing alcohol do you have on a typical day when you are drinking?: 1 or 2 3. How often do you have six or more drinks on one occasion?: Never Total Score: 3 Score Reviewed/Action Taken: Yes STEVE-7 AMB Questionnaire STEVE-7 Date STEVE - 7 assessed: 02/25/25 Feeling nervous, anxious, or on edge: 1 = Several days Not being able to stop or control worryin = Several days Worrying too much about different things: 1 = Several days Trouble relaxin = Several days Being so restless that it is hard to sit still: 1 = Several days Becoming easily annoyed or irritable: 1 = Several days Feeling afraid as if something awful might happen: 1 = Several days Total STEVE-7 score (0-4 normal; 5-9 mild; 10-14 moderate; 15-21 severe): 7 Source: Developed by Drs. Ganga Bauer, [place] Benedict, Dionte Puente and colleagues, with an educational albert from [employer]. STEVE-7 Assessment Billing STEVE-7 Assessment Tool: STEVE-7 Assessment 59660 Physical exam (Primary Care) Tobacco/Smoking Status: Tobacco use Status Tobacco use date assessed 01/06/25 01/06/25 13:49 Patient Tobacco Use Status Former Tobacco user 02/18/25 11:20 Tobacco use type Cigarette 02/16/25 20:48 e-Cigarette/Vaping Use Never Used 02/16/25 20:48 Depression Screening Interpretation: Negative Thrive Assessment: Date of Thrive Assessment Date Thrive assessed 02/17/25 02/19/25 11:58 Currently or been in a relationship where the following occur: I choose not to answer Coding Additional Codes PHQ-9 - 52091 - PHQ-9 Billing: Yes ([id number]) STEVE-7 Assessment Billing - STEVE-7 Assessment Tool: STEVE-7 Assessment 13564 ([id number])
--- OUTSIDE RECORDS SUMMARY | 2025-02-25 13:40 | XMS_ITS | Clinical Summary ---
Author Organization [facility] Address [address] [place] [address] Phone Care Team Providers Care Phlebotomist Prn Name Role Phone Vito Beal MD Primary Care Provider [phone] Encounters Date Type Department Care Team Description 12/31/2024 8:32 AM EST - 12/31/2024 11:59 PM EST Hospital Encounter [facility] PET Scan [address] [place] [address] Solitary pulmonary nodule Discharge Disposition: [...] Signed Date: 01/02/2025 05:43 ET Workstation ID: [id number] Transcribed By: Self Edit Transcribed Date: 01/02/2025 [...] Signed Date: 01/02/2025 05:43 ET Workstation ID: [id number] Transcribed By: Self Edit Transcribed Date: 01/02/2025 05:05 ET Chacho Erwin IMG NM PROCEDURES Final Result from Last 3 Months Care Teams Phlebotomist Prn Relationship Specialty Start Date End Date Vito Beal MD [address] [place] [address] PCP - General Internal Medicine 02/13/25
--- OUTSIDE RECORDS SUMMARY | 2025-02-25 13:40 | XMS_ITS | Referral Summary ---
Author Organization [facility] Address [address] [place] [address] Care Team Providers Care Agricultural Equipment Test Engineer Name Role Phone Vito Beal Primary Care Provider [phone] Allergies No known active allergies Medications donepeziL [...] productive cough, chest tightness upon arrival to [facility] Hypoxic to 70s on RA with recovery [...] productive cough, chest tightness upon arrival to [facility] Hypoxic to 70s on RA with recovery [...] for COPD exacerbation and flu A at [place] for 2 weeks, C.c. shortness of breath [...] for COPD exacerbation and flu A at [place] for 2 weeks, C.c. shortness of breath [...] Administration Dates Next Due Covid-19, Pfizer, mRNA, Isabella valent, PF 30 mcg/0.3 mL dose (for [...] Documents on File Type Date Recorded Patient Netsuite Consultant Expl [facility] Care Proxy 11/07/2024 10:49 AM 06-29 * Full Code (Latest Code Status on File) Date Activated Date Inactivated Comments 11/05/2024 6:19 PM 11/08/2024 9:00 PM Care Teams Agricultural Equipment Test Engineer Relationship Specialty Start Date End Date Vito Beal [address] [place], [place] [id number] PCP - General Internal Medicine 11/05/24
--- OUTSIDE RECORDS SUMMARY | 2025-02-25 13:40 | XMS_ITS | Continuity of Care Document ---
Author Organization [facility] Address [address] [place] [phone] Phone Care Team Providers Care Chancellor Name Role Phone Isael Jane NP Unavailable Unavailable Advance Directives Directive Yes / No Effective Date File Name No Information Encounters Encounter Description Practice Location Reason(s) For Visit Diagnoses Date Provider [facility], [address] [place] [address], [id number], [place] tel:[phone] [address] [place] [address] No Information [address], [place], [id number], [place]. tel:[phone] Family History Family Member Type Diagnosis Age [...]
--- OUTSIDE RECORDS SUMMARY | 2025-02-25 13:40 | XMS_ITS | Clinical Summary ---
Author Organization [facility] Address [address] [place] [address] Care Team Providers Care Hand Driller Name Role Phone Vito Beal Primary Care Provider Allergies No known active allergies Medications donepeziL [...] productive cough, chest tightness upon arrival to [facility] Hypoxic to 70s on RA with [...] productive cough, chest tightness upon arrival to [facility] Hypoxic to 70s on RA with [...] for COPD exacerbation and flu A at [place] for 2 weeks, C.c. shortness of breath [...] for COPD exacerbation and flu A at [place] for 2 weeks, C.c. shortness of breath [...] Administration Dates Next Due Covid-19, Pfizer, mRNA, [place] valent, PF 30 mcg/0.3 mL dose (for [...] Documents on File Type Date Recorded Patient Meter Maintenance Person Expl [facility] Care Proxy 11/07/2024 10:49 AM 06-29 * Full Code (Latest Code Status on File) Date Activated Date Inactivated Comments 11/05/2024 6:19 PM 11/08/2024 9:00 PM Care Teams Hand Driller Relationship Specialty Start Date End Date Vito Beal [address] [place] [address] PCP - General Internal Medicine 11/05/24
== END 2025-02-25 14:13 | disposition home or self-care (01) ==
LOC: HO.HMCC 12:17
PROVIDERS: PCP Internal Medicine; Visit Provider Internal Medicine
DX: J44.1 Chronic obstructive pulmonary disease with (acute) exacerbation (principal); J96.11 Chronic respiratory failure with hypoxia; G30.1 Alzheimer's disease with late onset; F02.B0 Dementia in other diseases classified elsewhere, moderate, without behavioral disturbance, psychotic disturbance, mood disturbance, and anxiety; Z09 Encounter for follow-up examination after completed treatment for conditions other than malignant neoplasm; Z99.81 Dependence on supplemental oxygen

== ENCOUNTER → 2025-02-25 12:16 | Outpatient (BNVA) | payer MEDICARE, SELFPAY | PROVIDERS: PCP Internal Medicine; Visit Provider Internal Medicine | DX: J44.9 Chronic obstructive pulmonary disease, unspecified (principal); F31.9 Bipolar disorder, unspecified; J44.1 Chronic obstructive pulmonary disease with (acute) exacerbation; J96.11 Chronic respiratory failure with hypoxia; G30.1 Alzheimer's disease with late onset; F02.B0 Dementia in other diseases classified elsewhere, moderate, without behavioral disturbance, psychotic disturbance, mood disturbance, and anxiety; Z09 Encounter for follow-up examination after completed treatment for conditions other than malignant neoplasm; Z99.81 Dependence on supplemental oxygen; Z87.891 Personal history of nicotine dependence | CPT/HCPCS: 96127; 99495 ==

== ENCOUNTER 2025-04-07 11:05 | Outpatient (AMB) | payer MEDICARE, MEDICAID, SELFPAY ==
--- NOTE | 2025-04-07 11:13 | A.OFFVIS_ITS ---
Vital Signs 04/07/25 11:14 Height 5 ft 4 in Weight 98 lb 1.691 oz BMI 16.8 BP 130/62 Blood Pressure Location Lt brachial Position Sitting Pulse 73 Pulse Source Pulse Oximeter Pulse Oximetry (%) 94 Oxygen Delivery Method Nasal Cannula Oxygen Flow Rate 2 Intake Visit Reasons: sob Intake Note: pt is here for follow up and she has a poc now, and the daughter has some questions on shortness of breath in am after using the bathroom. using oxygen at night while sleeping. needs to discuss the prednisone, she is on 10mg daily right now. Moss Picker Required: No Allergies No Known Allergies Allergy (Verified 04/07/25 11:37) Medication List - Last Reconciled 04/07/25 by Chacho Erwin MD albuterol sulfate 90 mcg/actuation 2 puffs inhalation Q4-6H PRN clobetasol 0.05% 1 appl topical BEDTIME PRN 30 days donepezil 5 mg PO BEDTIME fluticasone propion-salmeterol 250-50 mcg/dose (Wixela Inhub) 1 inh inhalation BID 30 days ipratropium-albuterol 0.5 mg-3 mg(2.5 mg base)/3 mL 3 mL inhalation Q6H PRN megestrol 40 mg PO DAILY 90 days mirtazapine 7.5 mg PO BEDTIME [nebulizer with all supplies As directed] prednisone 10 mg PO DAILY 10 days quetiapine (Seroquel) 25 mg PO BEDTIME 90 days sertraline 75 mg PO DAILY tiotropium bromide (Spiriva with HandiHaler) 1 cap inhalation DAILY 30 days valacyclovir 500 mg PO DAILY Do you need a note to return to daycare/school/sports/work: No HPI HPI sob: Details: This 60 years old female with advanced chronic obstructive pulmonary disease, was recently hospitalized at [facility] for acute exacerbation of COPD, Discharged home on prednisone 10 mg daily, in addition to Wixela 250-50 b.i.d. and DuoNeb updrafts. She is dependent on oxygen and uses 2 L/minute. At home she uses stationary concentrator , but for outdoors she does have a lightweight POC unit which is easy to carry. Overall she is doing better and has very little cough but gets short of breath on minimal exertion. She is living at an assisted living facility, the staff of the facility dispenses her medications. She continues to smoke even bowman using the oxygen, currently she is smoking about 10 cigarettes a day. In the past she has smoked bowman using the oxygen. But now she claims that she does not smoke and use oxygen at the same time. Her daughter is still concerned that she may smoke was oxygen is running at the same time. Clinically after her recent hospitalization she is feeling. 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, without behavioral disturbance Pulmonary nodule Acute on chronic hypoxic respiratory failure Major neurocognitive disorder Encounter for assessment of decision-making capacity Cognitive impairment Nicotine dependence, cigarettes, uncomplicated Anal itching Vaginal discharge Colonoscopy refused Palpitation Colon cancer screening Non-compliance Anorexia nervosa Underweight Urinary urgency Eczema Mammogram declined Surgical History History of cervical biopsy History of tonsillectomy History of surgery on arm Family History Father Family history unknown Mother COPD (chronic obstructive pulmonary disease) Sister No problems noted. Sister COPD (chronic obstructive pulmonary disease) Social History Household Members: None Housing: Assisted Living Facility Do you presently have visiting nurse or other home services: No Alcohol intake: current Alcohol intake frequency: 0-2 drinks per day Alcohol type: hard liquor Patient Tobacco Use Status: Former Tobacco user Tobacco use type: Cigarette Cigarette Packs Per Day: 1 Cigarettes Per Day: 20.0 Years Smoked: 40 e-Cigarette/Vaping Use: Never Used Second Hand Smoke Exposure: No Substance Use Type: Marijuana service: No Current occupational status: disabled Sexual orientation: Straight/Heterosexual Gender identity: Female Cognitive needs: No Hearing needs: No Vision needs: No Review of Systems Const All systems reviewed & are unremarkable except as noted in HPI and below Eyes Reports no additional complaints ENT Reports nasal congestion (OFF AND ON) Card Denies irregular heart rhythm and Denies leg edema Resp Reports as per HPI GI Reports other (LACK OF APPETITE, AND POOR DIETARY INTAKE.) Reports nocturia Musc Reports other (GENERAL MUSCLE WEAKNESS) Skin/Breast Reports system reviewed and no additional complaints, except as documented Neuro Reports no additional complaints Psych Reports anxiety and Reports depression Physical Exam Vital Signs: Last Vital Signs Pulse 73 04/07/25 11:14 BP 130/62 04/07/25 11:14 Pulse Ox 94 04/07/25 11:14 Oxygen Delivery Method Nasal Cannula 04/07/25 11:14 Oxygen Flow Rate 2 04/07/25 11:14 BMI result Body Mass Index 16.8 PATIENT IS DEFINITELY UNDER NOURISHED, OF A THIN BUILD, CHRONICALLY SICK- LOOKING. Const General: comfortable, no acute distress, alert and awake Orientation/consciousness: patient oriented x3 HEENT Head: Yes normal to inspection General nose exam: No nasal polyps present, No nasal discharge present and Other nasal findings present (ONLY MILD NASAL CONGESTION) Face and sinus: Yes sinuses nontender Mouth: oropharynx normal Throat: Yes posterior oropharynx normal Eyes General: appearance normal, both eyes and all related structures Neck Neck: Yes normal visual inspection, Yes no lymphadenopathy, Yes trachea midline and Yes no JVD Thyroid: Thyroid normal Chest Chest palpation & inspection: normal inspection of the chest, normal palpation of entire chest wall and no tenderness Resp Other: PERCUSSION NOTE IS HYPER-RESONANT, BREATH SOUNDS ARE VERY DISTANT ON BOTH SIDES WITH. PROLONGED EXPIRATORY PHASE NO WHEEZES RHONCHI OR CREPITATIONS ARE HEARD Cardio Palpation: normal PMI Rate: regular rate Rhythm: regular rhythm Heart sounds: no gallops and no murmurs Peripheral pulses: Peripheral pulses 2+ throughout GI Palpation (GI): Soft to palpation, nontender, No hepatosplenomegaly present and no masses Auscultation: normal bowel sounds Back/Spine/Pelvis Thoracic/Lumbar Spine: thoracic and lumbar spine normal to inspection Skin General skin exam: no rashes or lesions noted Neuro General: patient oriented x3 and no focal motor deficits Cranial nerves: Yes CN's II-XII intact bilaterally Extrem General: Yes normal to inspection, Yes no clubbing, cyanosis or edema and Yes no calf tenderness Psych Mental Status: mental status grossly normal Speech and movement: Normal speech and movement present Results Reviewed Results Reviewed: Notes from her recent hospitalization in January of this year are reviewed Assessment & Plan Assessment & Plan (1) COPD (chronic obstructive pulmonary disease): Comment: Patient has advanced chronic obstructive pulmonary disease . , basically it is staying as stable as expected. Has had hospitalization in January of this year for treatment of acute exacerbation. Code(s): J44.9 - Chronic obstructive pulmonary disease, unspecified Category: Medical Qualifiers: COPD type: emphysema Emphysema type: panlobular Qualified Code(s): J43.1 - Panlobular emphysema Plan: Advised to continue using Wixela 250-51 inhalation b.i.d. Spiriva HandiHaler 1 inhalation daily. Ipratropium-albuterol solution in the nebulizer Q 6 hours p.r.n. Prednisone 10 mg daily, and we plan to taper it down slowly. She is advised that she can use 10 mg on alternate days and reduced to 5 mg on alternate days, in about a month she will just go down to 5 mg a day. (2) Nicotine dependence, cigarettes, uncomplicated: Comment: (Current smoker - onset 13yo, 1ppd x 45yrs, now1/2ppd - 40pyh), claims that she has cut down the cigarettes to 10 per day. Still smoking 10 cigarettes a day. Code(s): F17.210 - Nicotine dependence, cigarettes, uncomplicated Category: Medical Plan: Discussed the risk of ongoing smoking. Discussed with her the risk of smoking while she is using oxygen. She claims that she would not smoke near the oxygen. Discussed about cutting down the number of cigarettes. But considering her bipolar disorder and anxiety he is not expected that she will quit completely. (3) Chronic hypoxic respiratory failure: Comment: Patient has chronic hypoxemic and hypercapnic respiratory failure. Presence of hypercapnia makes her cognitive impairment worse Most recent blood gas study in January 2000 25, pH 7.40 pCO2 74 PO2 of 58 representing study state chronic respiratory failure. Code(s): J96.11 - Chronic respiratory failure with hypoxia Category: Medical Plan: Again advised her to use O2 cautiously, do not increase. Above 2 L/minute Avoid. Any narcotic medication Try to cut down smoking with the goal to quit completely. Breathing exercises with pursed lip technique would be helpful but because of her mental status she is not able to comply with that. Coding Level of Care Code Est Pt Level 4 (49877) Diagnoses Panlobular emphysema J43.1 COPD type: emphysema Emphysema type: panlobular Nicotine dependence, cigarettes, uncomplicated F17.210 Chronic hypoxic respiratory failure J96.11
[2025-04-07 11:14] VITALS: BP 130/62; PULSE 73; O2SAT 94; BMI 16.8
--- OUTSIDE RECORDS SUMMARY | 2025-04-07 13:16 | XMS_ITS | Clinical Summary ---
Author Organization [facility] Address [address] [place] [address] Phone Care Team Providers Care Security Sme Name Role Phone Vito Beal MD Primary Care Provider [phone] Social History Tobacco Use Types Packs/Day Years [...] 60-74 years 1-dose series) 2023 COVID-19 Vaccine ( - 2023-2 5 season) 2024 11/01/2021, 04/30/2021, 04/09/2021 Cholesterol [...] on patient's age to complete this topic Care Teams Security Sme Relationship Specialty Start Date End Date Vito Beal MD [address] [place] [address] PCP - General Internal Medicine 02/13/25
== END 2025-04-07 11:48 | disposition home or self-care (01) ==
LOC: HO.HPS 11:06
PROVIDERS: PCP Internal Medicine; Visit Provider Internal Medicine
DX: J43.1 Panlobular emphysema (principal); F17.210 Nicotine dependence, cigarettes, uncomplicated; J96.11 Chronic respiratory failure with hypoxia
CPT/HCPCS: 99214

== ENCOUNTER → 2025-04-07 11:05 | Outpatient (BNVA) | payer MEDICARE, MEDICAID, SELFPAY | PROVIDERS: PCP Internal Medicine; Visit Provider Internal Medicine | DX: J43.1 Panlobular emphysema (principal); J96.11 Chronic respiratory failure with hypoxia; F17.210 Nicotine dependence, cigarettes, uncomplicated; Z99.81 Dependence on supplemental oxygen | CPT/HCPCS: 99212 ==

== ENCOUNTER 2025-09-11 13:02 | Outpatient (REF) | payer MEDICARE, MEDICAID, SELFPAY ==
--- NOTE | ~2025-09-11 | CT_ITS ---
EXAMINATION: CT CHEST WITHOUT CONTRAST CLINICAL INFORMATION: Follow-up pulmonary nodules. COMPARISON: Outside PET/CT performed 12/31/2024 is not available for dictation. TECHNIQUE: Multidetector volumetric CT imaging of the chest was done. Axial MIP volume rendering provided. Sagittal and coronal reformatted images were obtained. This CT examination was performed using dose optimization techniques as appropriate, variously including the following: *Automated exposure control *Adjustment of mA and/or kV according to patient size (this includes techniques or standardized protocols for targeted exams where dose is matched to indication/reason for exam; i.e. extremities or head) *Use of iterative reconstruction technique DLP: 62 mGy/cm. FINDINGS: GENERAL LITHOGRAPHIC WORKER: Significantly hyperinflated lungs/ LUNGS: There is centrilobular emphysema with bilateral apical scarring slightly greater on the right. There are several right upper lobe nodules. Previously seen 6 mm nodule has grown to 8 mm in right upper lobe on axial image 107/3 . There are 2 additional ill-defined densities in the right upper lobe measuring 6 mm on axial image 87/3 of the 4 mm ill-defined density right upper lobe posteriorly on image 93/3. In addition there are several additional micronodules scattered throughout both lungs that of which appear dominant. MEDIASTINUM: Central trachea and the bronchi are widely patent. The heart size and great vessels are normal caliber no abnormal size mediastinal hilar lymph nodes seen. Trace coronary artery calcifications are present. Thyroid lobes are symmetrical and normal. CORONARY ARTERY CALCIFICATION: Mild coronary artery calcifications are present. PLEURA: There is no pleural effusion, thickening or pneumothorax. AXILLA: The axillae and the chest wall appears unremarkable. UPPER ABDOMEN: Visualized liver, spleen, pancreas are grossly unremarkable. OSSEOUS STRUCTURES: No aggressive lytic or sclerotic process seen. Mild superior endplate changes are seen at L1 and T6 vertebra, unchanged CT/CT chest wo IV con IMPRESSION: Significant emphysematous changes of lungs with chronic bilateral apical scarring and apical pleural thickening slightly greater on the right. 2 ill-defined new pulmonary nodules. Previously seen ill-defined 6 mm nodule has increased 8 mm. No abnormal size mediastinal hilar lymph nodes seen. Recommend [address] chest follow-up per Fleischner guidelines Fleischner guidelines were followed. Electronically signed by: Cal Ledesma MD 09/11/2025 02:01 PM [facility]
== END 2025-09-11 13:03 | disposition home or self-care (01) ==
LOC: HO.CT 13:02
PROVIDERS: PCP Internal Medicine; Visit Provider Internal Medicine
DX: R91.1 Solitary pulmonary nodule (principal)
CPT/HCPCS: 71250

== ENCOUNTER → 2025-09-11 13:04 | Outpatient (BNV) | payer MEDICARE, MEDICAID, SELFPAY | PROVIDERS: PCP Internal Medicine; Visit Provider Radiology Diagnostic Radiology | DX: R91.1 Solitary pulmonary nodule (principal) | CPT/HCPCS: 71250 ==